=== PATIENT | female | born 1970 | race Hispanic/Latino ===

== ENCOUNTER 2016-05-19 12:59 | Emergency (ER) | payer MEDICARE ==
[2016-05-19 12:59] VITALS: BMI 35.0
[2016-05-19 13:08] VITALS: RESP 18; TEMP 97.9; O2SAT 97
--- NOTE | 2016-05-19 14:30 | C.PDOC ---
History Of Present Illness <Bobby Rodriguez - Last Filed: 05/19/16 14:39> <Yulia Roca - Last Filed: 05/21/16 14:20> 45 year old female presents to the ED with complaints of bilateral knee and shoulder pain. An hour prior to arrival, patient slipped while in the tub falling on bilateral knees, shoulders and chest. Patient denies head injury and any other injuries at this time. (Bobby Rodriguez) 45 year old female presents to the ED with complaints of bilateral knee and shoulder pain. An hour prior to arrival, patient slipped while in the tub falling on bilateral knees, shoulders and chest. Patient denies head injury and any other injuries at this time. (Yulia Roca) History Per: Patient History/Exam Limitations: no limitations Onset/Duration Of Symptoms: Hrs Current Symptoms Are (Timing): Still Present - Knee Description Of Injury: Fell <Bobby Rodriguez - Last Filed: 05/19/16 14:39> History Per: Patient History/Exam Limitations: no limitations Onset/Duration Of Symptoms: Hrs - Knee Description Of Injury: Fell <Yulia Roca - Last Filed: 05/21/16 14:20> Time Seen by Provider: 05/19/16 13:10 Chief Complaint (Nursing): Lower Extremity Problem/Injury Past Medical History - Medical History PMH: Anemia, Anxiety, Arthritis, Asthma, Back Problems, Bipolar Disorder, Depression, Malignancy (Colon) Family History: States: Unknown Family Hx - Social History Hx Tobacco Use: No Hx Alcohol Use: No Hx Substance Use: No - Immunization History Hx Tetanus Toxoid Vaccination: No Hx Influenza Vaccination: No Hx Pneumococcal Vaccination: No <Yulia Roca - Last Filed: 05/21/16 14:20> Vital Signs: Last Vital Signs Temp 97.9 F 05/19/16 13:05 Pulse 85 05/19/16 14:37 Resp 18 05/19/16 14:37 BP 110/70 05/19/16 14:37 Pulse Ox 97 05/21/16 14:18 - [facility] Procedures CLOSED ENDOSCOPIC BIOPSY OF LARGE INTESTINE (05/23/14) COLONOSCOPY (08/12/14) DX ULTRASOUND-ABDOMEN (05/23/14) INSERTION OF TOTALLY IMPLANTABLE VASC ACCESS DEVIC (05/23/14) LAPAROSCOP LYSIS-PERITONEAL ADHES (05/23/14) LAPAROSCOPIC SIGMOIDECTOMY (05/23/14) OTHER ENDOSCOPY OF SM INTEST (05/23/14) PACKED CELL TRANSFUSION (05/23/14) PERCUTAN NEEDLE BX OF LIVER (05/23/14) REMOVAL OF VAD FROM TRUNK SUBCU/FASCIA, PERC APPROACH (03/16/15) Review Of Systems Constitutional: Negative for: Fever, Chills Gastrointestinal: Negative for: Vomiting, Diarrhea Musculoskeletal: Positive for: Shoulder Pain (bilateral), Other (bilateral knee pain) <Yulia Roca - Last Filed: 05/21/16 14:20> Physical Exam - Physical Exam Appears: Non-toxic, No Acute Distress Skin: Warm, Dry Head: Atraumatic, Normacephalic Eye(s): bilateral: Normal Inspection, PERRL, EOMI Oral Mucosa: Moist Neck: Normal ROM, No Midline Cervical Tenderness, No Paracervical Tenderness, Supple Chest: Symmetrical, No Tenderness, No Ecchymosis, No Subcutaneous Emphysema Cardiovascular: Rhythm Regular, No Friction Rub, No Murmur Respiratory: Normal Breath Sounds, No Rales, No Rhonchi, No Wheezing Gastrointestinal/Abdominal: Bowel Sounds (active), Soft, No Tenderness Back: Normal Inspection, No CVA Tenderness, No Vertebral Tenderness, No Paraspinal Tenderness Extremity: Normal ROM (in bilateral knees), No Tenderness (no tenderness or swelling to bilateral knees), Capillary Refill (< 2 sec), No Deformity, Other ( anterior left shoulder tenderness) Extremity: Bilateral: Normal ROM (knees) Neurological/Psych: Oriented x3, Normal Speech, Normal Motor, Normal Sensation Gait: Steady <Yulia Roca - Last Filed: 05/21/16 14:20> ED Course And Treatment O2 Sat by Pulse Oximetry: 97 (on RA) Pulse Ox Interpretation: Normal <Yulia Roca - Last Filed: 05/21/16 14:20> Medical Decision Making <Bobby Rodriguez - Last Filed: 05/19/16 14:39> <Yulia Roca - Last Filed: 05/21/16 14:20> Medical Decision Making: Patient refuses sling. (Yulia Roca Disposition <Bobby Rodriguez - Last Filed: 05/19/16 14:39> - Disposition Disposition Time: : <Yulia Roca - Last Filed: 05/21/16 14:20> - Disposition Referrals: Shaik Saxena MD [Staff Provider] - Disposition: HOME/ ROUTINE Condition: GOOD Additional Instructions: Follow up with the medical doctor within 1-2 days. Return if worsened, Prescriptions: Cyclobenzaprine [Flexeril] 5 mg PO TID #21 tab Naproxen [Naprosyn] 500 mg PO BID #20 tab Instructions: Shoulder Sprain (ED) - Clinical Impression Clinical Impression: Shoulder sprain, Knee sprain, bilateral, Contusion of chest <Bobby Rodriguez - Last Filed: 05/19/16 14:39> - Scribe Statement The provider has reviewed the documentation as recorded by the Scribe <Yulia Roca - Last Filed: 05/21/16 14:20> - Scribe Statement Shira Arthur All medical record entries made by the Scribe were at my direction and personally dictated by me. I have reviewed the chart and agree that the record accurately reflects my personal performance of the history, physical exam, medical decision making, and the department course for this patient. I have also personally directed, reviewed, and agree with the discharge instructions and disposition. (Yulia Roca)
--- NOTE | 2016-05-19 14:32 | C.PDOC ---
History Of Present Illness 45 year old female presents to the ED with complaints of bilateral knee and shoulder pain. An hour prior to arrival, patient slipped while in the tub falling on bilateral knees, shoulders and chest. Patient denies head injury and any other injuries at this time. Time Seen by Provider: 05/19/16 13:10 Chief Complaint (Nursing): Lower Extremity Problem/Injury History Per: Patient History/Exam Limitations: no limitations Onset/Duration Of Symptoms: Hrs Current Symptoms Are (Timing): Still Present - Hip Description Of Injury: Fell - Ankle/Foot Description Of Injury: Fell Past Medical History Reviewed: Historical Data, Nursing Documentation, Vital Signs Vital Signs: Last Vital Signs Temp 97.9 F 05/19/16 13:05 Pulse 91 H 05/19/16 13:05 Resp 18 05/19/16 13:05 BP 120/79 05/19/16 13:05 Pulse Ox 97 05/19/16 13:05 - Medical History PMH: Anemia, Anxiety, Arthritis, Asthma, Back Problems, Bipolar Disorder, Depression, Malignancy (Colon) - [facility] Procedures CLOSED ENDOSCOPIC BIOPSY OF LARGE INTESTINE (05/23/14) COLONOSCOPY (08/12/14) DX ULTRASOUND-ABDOMEN (05/23/14) INSERTION OF TOTALLY IMPLANTABLE VASC ACCESS DEVIC (05/23/14) LAPAROSCOP LYSIS-PERITONEAL ADHES (05/23/14) LAPAROSCOPIC SIGMOIDECTOMY (05/23/14) OTHER ENDOSCOPY OF SM INTEST (05/23/14) PACKED CELL TRANSFUSION (05/23/14) PERCUTAN NEEDLE BX OF LIVER (05/23/14) REMOVAL OF VAD FROM TRUNK SUBCU/FASCIA, PERC APPROACH (03/16/15) Family History: States: Unknown Family Hx - Social History Hx Tobacco Use: No Hx Alcohol Use: No Hx Substance Use: No - Immunization History Hx Tetanus Toxoid Vaccination: No Hx Influenza Vaccination: No Hx Pneumococcal Vaccination: No Review Of Systems Constitutional: Negative for: Fever, Chills Gastrointestinal: Negative for: Nausea, Vomiting, Diarrhea Musculoskeletal: Positive for: Shoulder Pain, Other (bilateral knee pain) Physical Exam - Physical Exam Appears: Non-toxic Skin: Warm, Dry Neck: Normal ROM Extremity: Normal ROM, No Tenderness (no tenderness to bilateral knees), Other ( anterior left shoulder tenderness ) Neurological/Psych: Oriented x3 ED Course And Treatment O2 Sat by Pulse Oximetry: 97
[2016-05-19 14:38] VITALS: BP 110/70; PULSE 85
--- NOTE | 2016-05-19 16:48 | RAD ---
PROCEDURE: Radiographs of the Left Shoulder HISTORY: fall and shoulder pain COMPARISON: No prior. FINDINGS: BONES: No acute fracture. JOINTS: Mild glenohumeral osteoarthritis. Mild acromioclavicular degenerative arthritis. SOFT TISSUES: Calcific tendinitis. OTHER FINDINGS: None. IMPRESSION: No fracture. Glenohumeral osteoarthritis. Acromioclavicular degenerative arthritis. Calcific tendinitis.
--- NOTE | 2016-05-19 16:48 | RAD ---
HISTORY: fall injury to chest, right sided port COMPARISON: 07/31/2015 TECHNIQUE: Chest PA and lateral FINDINGS: LUNGS: No active pulmonary disease. PLEURA: No significant pleural effusion identified. No pneumothorax apparent. CARDIOVASCULAR: Normal heart size. Right subclavian central venous infusion port. OSSEOUS STRUCTURES: No significant abnormalities. VISUALIZED UPPER ABDOMEN: Normal. OTHER FINDINGS: None. IMPRESSION: No active disease.
== END 2016-05-19 14:39 | disposition home or self-care (01) ==
LOC: C.ER 12:59
DX: S83.92XA Sprain of unspecified site of left knee, initial encounter (principal); S83.91XA Sprain of unspecified site of right knee, initial encounter; S43.402A Unspecified sprain of left shoulder joint, initial encounter; S43.401A Unspecified sprain of right shoulder joint, initial encounter; W18.2XXA Fall in (into) shower or empty bathtub, initial encounter; Y93.E1 Activity, personal bathing and showering; Y92.002 Bathroom of unspecified non-institutional (private) residence as the place of occurrence of the external cause

== ENCOUNTER 2016-05-31 17:39 | Inpatient (IN) | payer MEDICARE, OTHER ==
[2016-05-31 18:01] VITALS: BMI 34.4
[2016-05-31 19:46] LABS: BASO % 0.3 % (0.0-2.0); EOS % 0.9 % (0.0-4.0); HEMATOCRIT 31.9 % (34.0-47.0); LYMPH # 0.8 K/uL (1.0-4.3); LYMPH % 28.9 % (20.0-40.0); MEAN CELL VOLUME 77.4 fL (81.0-99.0); MEAN CORPUSCULAR HEMOGLOBIN 25.3 pg (27.0-31.0); MEAN CORPUSCULAR HGB CONC 32.7 g/dL (33.0-37.0); MEAN PLATELET VOLUME 7.2 fL (7.2-11.7); MONO # 0.2 K/uL (0.0-0.8); MONO % 6.9 % (0.0-10.0); RED CELL DISTRIBUTION WIDTH 17.3 % (11.5-14.5); WHITE BLOOD COUNT 2.7 K/uL (4.8-10.8)
[2016-05-31 19:54] LABS: INR 1.1
[2016-05-31 19:57] LABS: RBC URINE 1 /hpf (0-3); URINE BACTERIA RARE (<OCC); URINE BILIRUBIN NEGATIVE (NEGATIVE); URINE BLOOD NEGATIVE (NEGATIVE); URINE COLOR Yellow (YELLOW); URINE GLUCOSE (UA) NORMAL (Normal); URINE KETONE NEGATIVE (NEGATIVE); URINE LEUKOCYTE ESTERASE NEG Leu/uL (Negative); URINE PROTEIN NEGATIVE (NEGATIVE); WBC URINE < 1 /hpf (0-5)
[2016-05-31 20:09] LABS: CHLORIDE 98 mmol/L (98-107); POTASSIUM 4.2 mmol/L (3.6-5.2); SODIUM 138 mmol/L (132-148)
[2016-05-31 20:11] LABS: AST/SGOT 38 U/L (14-36); BILIRUBIN,TOTAL 0.3 mg/dL (0.2-1.3); CARBON DIOXIDE 29 mmol/L (22-30); GFR AFRICAN-AMERICAN > 60
[2016-05-31 20:12] LABS: ALB/GLOB RATIO 1.3 (1.0-2.1); ALKALINE PHOSPHATASE 105 U/L (38-126); ALT/SGPT 31 U/L (9-52); BLOOD UREA NITROGEN 15 mg/dL (7-17); CALCIUM 8.3 mg/dl (8.6-10.4); GLUCOSE,RANDOM 84 mg/dL (65-105); TOTAL PROTEIN 6.6 g/dL (6.3-8.3)
--- NOTE | 2016-05-31 20:30 | C.PDOC ---
History Of Present Illness Patient is a 45 year old female who presents to the ER with a complaint of rectal bleeding since this morning. Patient states the blood is red, without clots. Patient also reports having left lower quadrant pain and constipation. Patient had a similar episode of bleeding last week that resolved in one day. Patient has a past history of colon cancer and is status post cancer resection as of 2015. Patient is currently undergoing chemo radiation, most recent treatment was last month. SUPER[employer] RO[employer] is Dr. Mendez and oncologist is Dr. Heath. Denies any diarrhea, vomiting, or fever. Time Seen by Provider: 05/31/16 19:00 Chief Complaint (Nursing): GI Problem History Per: Patient History/Exam Limitations: no limitations Onset/Duration Of Symptoms: Hrs (Since AM) Current Symptoms Are (Timing): Still Present Location Of Pain/Discomfort: LLQ Associated Symptoms: denies: Fever, Vomiting, Diarrhea Past Medical History Reviewed: Historical Data, Nursing Documentation, Vital Signs Vital Signs: Last Vital Signs Temp 98.3 F 06/02/16 06:00 Pulse 80 06/02/16 00:00 Resp 20 06/02/16 00:00 BP 114/76 06/01/16 22:00 Pulse Ox 96 06/02/16 00:00 - Medical History PMH: Anemia, Anxiety, Arthritis, Asthma, Back Problems, Bipolar Disorder, Depression, Malignancy (Colon) - [facility] Procedures CLOSED ENDOSCOPIC BIOPSY OF LARGE INTESTINE (05/23/14) COLONOSCOPY (08/12/14) DX ULTRASOUND-ABDOMEN (05/23/14) INSERTION OF TOTALLY IMPLANTABLE VASC ACCESS DEVIC (05/23/14) LAPAROSCOP LYSIS-PERITONEAL ADHES (05/23/14) LAPAROSCOPIC SIGMOIDECTOMY (05/23/14) OTHER ENDOSCOPY OF SM INTEST (05/23/14) PACKED CELL TRANSFUSION (05/23/14) PERCUTAN NEEDLE BX OF LIVER (05/23/14) REMOVAL OF VAD FROM TRUNK SUBCU/FASCIA, PERC APPROACH (03/16/15) Family History: States: Unknown Family Hx - Social History Hx Tobacco Use: No Hx Alcohol Use: No Hx Substance Use: No - Immunization History Hx Tetanus Toxoid Vaccination: No Hx Influenza Vaccination: Yes (2015) Hx Pneumococcal Vaccination: No (''Not sure'') Review Of Systems Constitutional: Negative for: Fever Gastrointestinal: Negative for: Vomiting, Diarrhea Physical Exam - Physical Exam Additional Physical Exam Comments: Constitutional: No acute distress. Head: Normocephalic. Atraumatic. Eyes: PERRL. ENT: Moist mucous membranes. Neck: Supple. Cardiovascular: Regular rate. Radial pulses 2+ bilaterally. Chest: No tenderness. Respiratory: Clear to auscultation bilaterally. GI: Epigastric/RUQ and Left lower quadrant tenderness Back: No CVA tenderness. Musculoskeletal: No tenderness or swelling of extremities. Skin: No rash. Neurologic: Alert, no focal deficit. ED Course And Treatment - Laboratory Results Result Diagrams: 05/31/16 19:42 05/31/16 19:42 O2 Sat by Pulse Oximetry: 96 (Room air) Pulse Ox Interpretation: Normal Medical Decision Making Medical Decision Making: Blood type & screen, CT of Abd/pelvis IV contrast only, and urine culture ordered. Morphine administered. CT of Abd/pelvis IV contrast only results: FINDINGS: Lower thorax: Minimal atelectasis or fibrosis in the bases. ABDOMEN: Liver: Fatty liver. Vague density left hepatic lobe image 14 appears to be new. Portions of the mass may represent a dilated duct, with the mass measuring about 1.8 cm. Rule out mass. Gallbladder and bile ducts: Unremarkable. No calcified stones. No ductal dilation. Pancreas: There is stranding identified in the right upper quadrant around the pancreas and duodenum on images 33 through 44. Correlate for pancreatitis or duodenitis although the appearance is nonspecific. Spleen: Persistent splenomegaly. Adrenals: Unremarkable. No mass. Kidneys and ureters: Unremarkable. No solid mass. No hydronephrosis. Stomach and bowel: Previous colon resection. Moderate fecal retention. Appendix: No findings to suggest acute appendicitis. PELVIS: Bladder: Unremarkable. No mass. Reproductive: Unremarkable as visualized. ABDOMEN and PELVIS: Intraperitoneal space: Unremarkable. No free air. No significant fluid collection. Bones/joints: Degenerative changes in the lumbar spine, L5-S1 No acute fracture. No dislocation. Soft tissues: Unremarkable. Vasculature: Unremarkable. No abdominal aortic aneurysm. Lymph nodes: Unremarkable. No enlarged lymph nodes. IMPRESSION: 1. Persistent splenomegaly. 2. Fatty liver. 3. Vague density left hepatic lobe image 14 appears to be new. Portions of the mass may represent a dilated duct, with the mass measuring about 1.8 cm. Rule out mass. 4. Previous colon resection. 5. There is stranding identified in the right upper quadrant around the pancreas and duodenum on images 33 through 44. Correlate for pancreatitis or duodenitis although the appearance is nonspecific. Dr. Tila Harris accepts patient to his service. Disposition - Disposition Disposition: HOSPITALIZED Disposition Time: 22:53 Condition: GUARDED - Clinical Impression Clinical Impression: Duodenitis, Rectal bleeding - Scribe Statement The provider has reviewed the documentation as recorded by the Scribirasema Arita All medical record entries made by the Christopheribirasema were at my direction and personally dictated by me. I have reviewed the chart and agree that the record accurately reflects my personal performance of the history, physical exam, medical decision making, and the department course for this patient. I have also personally directed, reviewed, and agree with the discharge instructions and disposition.
[2016-05-31] MEDS ORDERED: Iohexol 350mg/ml 100 ML ONE (20:42)
[2016-05-31] MEDS ORDERED: OXYCODONE 15 MG PO PRN (23:59)
[2016-06-01] MEDS ORDERED: metroNIDAZOLE IV 500 mg/100 ml 100 ML ONE (00:49)
[2016-06-01] MEDS: metroNIDAZOLE IV 500 mg/100 ml 100 ML IVPB SCH ×3 (01:11→21:25)
[2016-06-01] MEDS: Cefepime IV 1 gm in Dextrose 50 ML IVPB SCH ×2 (01:22→11:27)
[2016-06-01] MEDS ORDERED: oxyCODONE 5 mg Immediate Release Tab ONE (04:46)
--- NOTE | 2016-06-01 08:58 | CT ---
PROCEDURE: CT Abdomen and Pelvis with contrast HISTORY: LLQ pain, rectal bleeding. By history, negative test (concurrent with this examination). Relevant medical history: History of colon cancer/on chemotherapy. Relevant surgical history: Partial colectomy, rectosigmoid anastomosis. COMPARISON: 08/12/2014. CT abdomen and pelvis. 04/13/2016 CT chest abdomen and pelvis. TECHNIQUE: Contrast dose: Radiation dose: Total exam DLP = mGy-cm. This CT exam was performed using one or more of the following dose reduction techniques: Automated exposure control, adjustment of the mA and/or kV according to patient size, and/or use of iterative reconstruction technique. FINDINGS: LOWER THORAX: Unremarkable. LIVER: Unremarkable. No gross lesion or ductal dilatation. GALLBLADDER AND BILE DUCTS: Unremarkable. PANCREAS: Unremarkable. No gross lesion or ductal dilatation. SPLEEN: Splenomegaly. Orthogonal measurements 7.2 x 18.0 x 13.0 Cm ADRENALS: Unremarkable. No mass. KIDNEYS AND URETERS: Unremarkable. No hydronephrosis. No solid mass. VASCULATURE: Unremarkable. No aortic aneurysm. BOWEL: Unremarkable. No obstruction. No gross mural thickening. APPENDIX: Normal appendix. PERITONEUM: Unremarkable. No free fluid. No free air. LYMPH NODES: Unremarkable. No enlarged lymph nodes. BLADDER: Unremarkable. REPRODUCTIVE: Unremarkable. BONES: No acute fracture. OTHER FINDINGS: None. IMPRESSION: No acute findings related to/accounting for the clinical presentation. No significant interval change compared to the prior examination(s). Concordant results (preliminary interpretation) provided by [employer] Procedure Completed: 21:31. Preliminary ([facility]) Report: Dictated and Authenticated: 21:52. Final Interpretation: 08:57.
--- NOTE | 2016-06-01 09:10 | CP.PCM.CON ---
<Chuck Zaragoza - Last Filed: 06/01/16 09:03> History of Present Illness - History of Present Illness History of Present Illness: PGY4 GI Fellow Consult Note Patient is a 45yo female with PMHx significant for colon cancer with metastatic disease to liver (T3N1M1) currently on chemotherapy, chronic constipation, bipolar disorder, obesity who presents with one week of rectal bleeding. The patient is a very poor historian, contradicting her own history during conversation. She states that last week she got her period for the first time in 3 years and it lasted two days. Following this, she passed a hard BM and noticed bright red blood mixed in with stool. Since this time she has had upwards of 10 episodes of rectal bleeding with and without stooling. She initially had admitted to some dizziness and stated this was why she presented to the ED last night but now denies this having happened. Pt also admits to diffuse, cramping abdominal pain but cannot localize pain to one area or clearly state when it began and what exacerbating factors exist. Ultimately, it seems she came to the ED given persistence of rectal bleeding. Admits that this had occurred several weeks ago and resolved spontaneously. When she discussed this with her oncologist, Dr Heath, he suggested she come to the hospital should it recur. She had chemotherapy on saturday (05/28/16) but did not mention this bleeding to her oncologist at that time. Currently, denies any SOB, nausea , vomiting, weight loss, diarrhea, constipation, melena. PMHx: See HPI PSHx: Sigmoid resection FHx: Father - unknown malignancy; Mother - RA Social: Former EtOH use, now denies EtOH/tobacco/illicit drug use Endo: Most recent colonoscopy was 07/2014 after her surgical resection - suboptimal prep and requested repeat in 6mo but patient lost to F/U Review of Systems - Constitutional Constitutional: absent: Anorexia, Chills, Fatigue, Fever - EENT Eyes: absent: Change in Vision Nose/Mouth/Throat: absent: Sore Throat - Cardiovascular Cardiovascular: absent: Chest Pain, Dyspnea, Palpitations - Respiratory Respiratory: absent: Cough, Dyspnea, Change in Mucous Color - Gastrointestinal Gastrointestinal: Abdominal Pain, Cramping, Hematochezia. absent: Belching, Bloating, Constipation, Diarrhea, Dyspepsia, Heartburn, Hematemesis, Loose Stools, Melena, Nausea, Vomiting - Genitourinary Genitourinary: absent: Dysuria, Urinary Frequency, Urinary Urgency - Musculoskeletal Musculoskeletal: absent: Back Pain, Neck Pain - Integumentary Integumentary: absent: New Lesions, Rash - Neurological Neurological: absent: Dizziness, Numbness, Focal Weakness - Psychiatric Psychiatric: absent: Anxiety, Depression - Endocrine Endocrine: absent: Polydipsia, Polyphagia, Polyuria - Hematologic/Lymphatic Hematologic: absent: Easy Bleeding, Easy Bruising, Lymphadenopathy Past Patient History - Infectious Disease Hx of Infectious Diseases: None - Past Medical History & Family History Past Medical History?: Yes - Past Social History Smoking Status: Never Smoked - CARDIAC Hx Cardiac Disorders: No - PULMONARY Hx Asthma: Yes - NEUROLOGICAL Hx Neurological Disorder: No - HEENT Hx HEENT Problems: No - RENAL Hx Chronic Kidney Disease: No - ENDOCRINE/METABOLIC Hx Endocrine Disorders: No - HEMATOLOGICAL/ONCOLOGICAL Hx Anemia: Yes - INTEGUMENTARY Hx Dermatological Problems: No - MUSCULOSKELETAL/RHEUMATOLOGICAL Hx Falls: No - GASTROINTESTINAL Hx Gastrointestinal Disorders: Yes (SEE COMMENT) Other/Comment: COLON CANCER STAGE 4 WITH CHEMOTHERAPY; PORTACATH TO RIGHT SUBCLAVIAN - GENITOURINARY/GYNECOLOGICAL Hx Genitourinary Disorders: No - PSYCHIATRIC Hx Anxiety: Yes Hx Bipolar Disorder: Yes Hx Depression: Yes Hx Substance Use: No - SURGICAL HISTORY Hx Surgeries: Yes (SEE COMMENT) Hx Vascular Access Device: Yes (RIGHT SUBCLAVIAN) Other/Comment: colon cancer surgery april 2014 to remove tumor, rt side subclavian PC - ANESTHESIA Hx Anesthesia: Yes Hx Anesthesia Reactions: No Meds Allergies/Adverse Reactions: Allergies Allergy/AdvReac Type Severity Reaction Status Date / Time No Known Allergies Allergy Verified 05/31/16 17:46 - Medications Medications: Current Medications Escitalopram Oxalate (Lexapro) 20 mg PO DAILY [facility] Home Med (Clonazepam [Klonopin]) 2 mg PO TID [facility] (Duloxetine [Cymbalta]) 60 mg PO DAILY [facility] (Naproxen [Naprosyn]) 500 mg PO BID [facility] (Oxycodone [Oxycodone Immediate Release Tab]) 15 mg PO Q3H PRN PRN Reason: Pain, moderate (4-7) Last Admin: 06/01/16 04:47 Dose: 15 mg Home Med (Solifenacin Succinate [Vesicare]) 5 mg PO HS [facility] (Zolpidem Tartrate [Ambien]) 10 mg PO [facility] Last Admin: 06/01/16 00:45 Dose: 10 mg Cefepime HCl (Maxipime Iv 1 Gm Premix) 50 mls @ 100 mls/hr IVPB Q12H [facility] Last Admin: 06/01/16 01:22 Dose: 100 mls/hr Metronidazole (Flagyl) 100 mls @ 100 mls/hr IVPB BID [facility] Last Admin: 06/01/16 01:11 Dose: 100 mls/hr Meclizine HCl (Antivert) 75 mg PO BID [facility] Pantoprazole Sodium (Protonix Inj) 40 mg IVP DAILY [facility] Risperidone (Risperdal Tab) 2 mg PO BID [facility] Last Admin: 06/01/16 00:45 Dose: 2 mg Physical Exam - Constitutional Appears: Non-toxic, No Acute Distress - Eye Exam Eye Exam: EOMI, PERRL - ENT Exam ENT Exam: Mucous Membranes Moist - Respiratory Exam Respiratory Exam: Clear to Auscultation Bilateral. absent: Rales, Rhonchi, Wheezes - Cardiovascular Exam Cardiovascular Exam: RRR, +S1, +S2 - GI/Abdominal Exam GI & Abdominal Exam: Normal Bowel Sounds, Soft, Tenderness (LLQ, RLQ). absent: Distended, Firm, Guarding, Organomegaly, Rigid - Rectal Exam Rectal Exam: NORMAL INSPECTION. absent: Black Stool, Bloody Stool, Hemorrhoids - Extremities Exam Extremities exam: Positive for: normal inspection. Negative for: pedal edema - Neurological Exam Neurological exam: Alert, Oriented x3 - Psychiatric Exam Psychiatric exam: Normal Affect, Normal Mood - Skin Skin Exam: Dry, Warm Results - Vital Signs Recent Vital Signs: Last Vital Signs Temp 96 F L 06/01/16 08:22 Pulse 88 06/01/16 08:22 Resp 16 06/01/16 08:22 BP 151/104 H 06/01/16 08:22 Pulse Ox 95 06/01/16 06:53 - Labs Result Diagrams: 05/31/16 19:42 05/31/16 19:42 Assessment & Plan - Assessment and Plan (Free Text) Assessment: Patient is a 45yo female with PMHx significant for colon cancer with metastatic disease to liver (T3N1M1) currently on chemotherapy, chronic constipation, bipolar disorder, obesity who presents with one week of rectal bleeding. -Hematochezia -Colon cancer with metastasis to liver s/p sigmoid resection, on chemotherapy with last dose 05/28/16 -Pancytopenia 2/2 chemotherapy -Bipolar disorder Plan: -Unremarkable rectal examination and no evidence of acute hematochezia since admission -CT A/P with IV contrast reviewed - grossly unremarkable; no evidence of liver lesions c/w history of metastatic disease -Pancytopenia attributed to chemotherapy - HGB unchanged from prior -Monitor for any further episodes of bleeding -Patient would benefit from surveillance colonoscopy as she has never had a complete exam post-operatively - if no active bleeding noted, can likely be performed in outpatient setting -Clear liquid diet, advance as tolerated -Consider discontinuation of antibiotics in absence of clear infectious process - Date & Time Date: 06/01/16 Time: 05:55 <Baldo Albarran - Last Filed: 06/01/16 17:22> Meds - Medications Medications: Current Medications Clonazepam (Klonopin) 2 mg PO TID PRN PRN Reason: Anxiety Last Admin: 06/01/16 14:07 Dose: 2 mg Duloxetine HCl (Cymbalta) 60 mg PO DAILY [facility] Escitalopram Oxalate (Lexapro) 20 mg PO DAILY [facility] Last Admin: 06/01/16 11:25 Dose: 20 mg Cefepime HCl (Maxipime Iv 1 Gm Premix) 50 mls @ 100 mls/hr IVPB Q12H [facility] Last Admin: 06/01/16 11:27 Dose: 100 mls/hr Metronidazole (Flagyl) 100 mls @ 100 mls/hr IVPB Q12H [facility] Meclizine HCl (Antivert) 75 mg PO BID [facility] Last Admin: 06/01/16 11:26 Dose: 75 mg Naproxen (Anaprox Ds) 550 mg PO BID [facility] Oxycodone HCl (Oxycodone Immediate Release Tab) 15 mg PO Q3H PRN PRN Reason: Pain, moderate (4-7) Last Admin: 06/01/16 11:34 Dose: 15 mg Pantoprazole Sodium (Protonix Inj) 40 mg IVP DAILY [facility] Last Admin: 06/01/16 11:04 Dose: 40 mg Risperidone (Risperdal Tab) 2 mg PO BID [facility] Tolterodine Tartrate (Detrol La) 4 mg PO HS [facility] Zolpidem Tartrate (Ambien) 5 mg PO HS PRN PRN Reason: Insomnia Results - Vital Signs Recent Vital Signs: Last Vital Signs Temp 97.6 F 06/01/16 16:00 Pulse 76 06/01/16 14:00 Resp 20 06/01/16 16:00 BP 112/77 06/01/16 16:00 Pulse Ox 95 06/01/16 16:00 - Labs Result Diagrams: 05/31/16 19:42 05/31/16 19:42 Attending/Attestation - Attestation I have personally seen and examined this patient.: Yes I have fully participated in the care of the patient.: Yes I have reviewed all pertinent clinical information: Yes Notes (Text): Patient seen and examined with GI fellow. Agree with his note as documented above with the following additions/exceptions. This is a 45 year old female with PMHx significant for colon cancer (T3N1M1) s/p surgical resection currently on adjuvant chemotherapy (follows with Dr. Heath) chronic constipation , bipolar disorder, obesity who presents with one week of rectal bleeding. She is pancytopenic, likely from chemotherapy and her Hb is near baseline. She has not had any further bleeding episodes while in hospital and there is no stool in vault/fresh bleeding on examination. Follow up official CT read, although no gross findings on my review. Monitor for recurrent bleeding/monitor H/H, transfuse as needed. She had attempted colonoscopy in 2014 which was incomplete due to poor prep quality. She would certainly benefit from colonoscopy, which can potentially be pursued as outpatient depending on patient 's clinical course. 06/01/16 12:18
[2016-06-01] MEDS ORDERED: CLONAZEPAM 2 MG PO SCH (10:00)
[2016-06-01] MEDS ORDERED: Home Med 1 UNIT (Naproxen [Naprosyn] 500 MG) PO SCH (10:00)
[2016-06-01] MEDS ORDERED: DULOXETINE 60 MG PO SCH (10:00)
--- NOTE | 2016-06-01 10:44 | CP.PCM.HP ---
History of Present Illness - History of Present Illness History of Present Illness: 45 years old female patient with past medical history of asthma, anxiety depression, colon cancer, status post laparoscopic sigmoidectomy on presented to ER with complaint of bleeding per rectum., Also complained of constipation, left lower quadrant pain similar episode of bleeding about a week ago. Patient is currently on chemotherapy and regular oncology follow-up. Emergency department of the abdomen and pelvis done blood work done and urine cultures sent. Present on Admission - Present on Admission Any Indicators Present on Admission: No Past Patient History - Infectious Disease Hx of Infectious Diseases: None - Past Medical History & Family History Past Medical History?: Yes - Past Social History Smoking Status: Never Smoked - CARDIAC Hx Cardiac Disorders: No - PULMONARY Hx Asthma: Yes - NEUROLOGICAL Hx Neurological Disorder: No - HEENT Hx HEENT Problems: No - RENAL Hx Chronic Kidney Disease: No - ENDOCRINE/METABOLIC Hx Endocrine Disorders: No - HEMATOLOGICAL/ONCOLOGICAL Hx Anemia: Yes - INTEGUMENTARY Hx Dermatological Problems: No - MUSCULOSKELETAL/RHEUMATOLOGICAL Hx Falls: No - GASTROINTESTINAL Hx Gastrointestinal Disorders: Yes (SEE COMMENT) Other/Comment: COLON CANCER STAGE 4 WITH CHEMOTHERAPY; PORTACATH TO RIGHT SUBCLAVIAN - GENITOURINARY/GYNECOLOGICAL Hx Genitourinary Disorders: No - PSYCHIATRIC Hx Anxiety: Yes Hx Bipolar Disorder: Yes Hx Depression: Yes Hx Substance Use: No - SURGICAL HISTORY Hx Surgeries: Yes (SEE COMMENT) Hx Vascular Access Device: Yes (RIGHT SUBCLAVIAN) Other/Comment: colon cancer surgery april 2014 to remove tumor, rt side subclavian PC - ANESTHESIA Hx Anesthesia: Yes Hx Anesthesia Reactions: No Meds Allergies/Adverse Reactions: Allergies Allergy/AdvReac Type Severity Reaction Status Date / Time No Known Allergies Allergy Verified 08/12/16 20:01 Physical Exam - Constitutional Appears: Well - Head Exam Head Exam: ATRAUMATIC, NORMAL INSPECTION, NORMOCEPHALIC - Eye Exam Eye Exam: EOMI, Normal appearance, PERRL Pupil Exam: NORMAL ACCOMODATION, PERRL - ENT Exam ENT Exam: Mucous Membranes Moist, Normal Exam - Neck Exam Neck exam: Positive for: Normal Inspection - Respiratory Exam Respiratory Exam: Decreased Breath Sounds - Cardiovascular Exam Cardiovascular Exam: REGULAR RHYTHM, +S1, +S2 - GI/Abdominal Exam GI & Abdominal Exam: Diminished Bowel Sounds, Soft - Rectal Exam Rectal Exam: Deferred Results - Vital Signs Recent Vital Signs: Last Vital Signs Temp 96 F L 06/01/16 08:22 Pulse 88 06/01/16 08:22 Resp 16 06/01/16 08:22 BP 151/104 H 06/01/16 08:22 Pulse Ox 95 06/01/16 06:53 - Labs Result Diagrams: 05/31/16 19:42 05/31/16 19:42 Assessment & Plan (1) Abdominal pain Status: Acute (2) Acute renal insufficiency Status: Acute (3) Anemia Status: Acute (4) Anxiety Status: Acute (5) Arm sprain Status: Acute (6) Cellulitis Status: Acute (7) Cellulitis and abscess Status: Acute (8) Chemotherapy adverse reaction Status: Acute (9) Closed head injury Status: Acute (10) Cocaine abuse Status: Acute (11) Colon cancer Status: Acute (12) Colon cancer metastasized to liver Status: Acute (13) Colonic mass Status: Acute (14) Constipation Status: Acute (15) Constipation Status: Acute (16) Contusion of chest Status: Acute (17) Contusion of knee, left Status: Acute (18) Contusion of knee, right Status: Acute (19) Contusion of lower back Status: Acute (20) Dizziness Status: Acute (21) Duodenitis Status: Acute (22) External hemorrhoid, bleeding Status: Acute (23) Fall in bathtub Status: Acute (24) Fever Status: Acute (25) Head injury Status: Acute (26) Head trauma Status: Acute (27) History of rectal bleeding Status: Acute (28) Infection due to portacath Status: Acute (29) Knee contusion Status: Acute (30) Knee injury Status: Acute (31) Knee pain Status: Acute (32) Knee pain, bilateral Status: Acute (33) Knee sprain, bilateral Status: Acute (34) Leukocytosis Status: Acute (35) Liver lesion Status: Acute (36) Muscle pain Status: Acute (37) Nausea Status: Acute (38) Osteoarthritis Status: Acute (39) Pancytopenia Status: Acute (40) Pancytopenia due to antineoplastic chemotherapy Status: Acute (41) Rectal bleeding Status: Acute (42) Shoulder contusion Status: Acute (43) Shoulder sprain Status: Acute (44) Status post chemotherapy Status: Acute (45) Vertigo Status: Acute (46) Anxiety Status: Chronic (47) Iron deficiency anemia Status: Chronic - Assessment and Plan (Free Text) Plan: CT scan report noted Meds reviewed Continue same Gastroenterology consult Consult Pain meds Labs next a.m.
[2016-06-01] MEDS ORDERED: oxyCODONE 5 mg Immediate Release Tab PO PRN (11:26)
[2016-06-01 16:08] VITALS: RESP 20
[2016-06-01] MEDS: Naproxen 550 mg Tab PO SCH (17:58)
[2016-06-01] MEDS ORDERED: Tolterodine 4 mg ER Cap PO SCH (22:00)
[2016-06-01] MEDS ORDERED: Home Med 1 UNIT (Solifenacin Succinate [Vesicare] 5 MG) PO SCH (22:00)
[2016-06-01 22:13] VITALS: O2SAT 96
[2016-06-02] MEDS: Cefepime IV 1 gm in Dextrose 50 ML IVPB SCH ×2 (00:15→11:56)
[2016-06-02] MEDS: metroNIDAZOLE IV 500 mg/100 ml 100 ML IVPB SCH (09:47)
[2016-06-02] MEDS: Naproxen 550 mg Tab PO SCH (09:48)
--- NOTE | 2016-06-02 12:49 | CP.PCM.PN ---
<Giannajose raulleticiaChuck - Last Filed: 06/02/16 12:45> Subjective - Date & Time of Evaluation Date of Evaluation: 06/02/16 Time of Evaluation: 11:20 - Subjective Subjective: PGY4 GI Fellow Progress Note Patient seen and examined bedside this afternoon. The patient has no evidence of repeat rectal bleeding and has had no issues other than cutting her finger with a razor blade while shaving. She denies any issues overnight. 12 system ROS performed and negative except where stated. Objective - Vital Signs/Intake and Output Vital Signs (last 24 hours): Temp Pulse Resp BP Pulse Ox 98.3 F 80 20 114/76 96 06/02/16 06:00 06/02/16 00:00 06/02/16 00:00 06/01/16 22:00 06/02/16 10:21 - Medications Medications: Current Medications Clonazepam (Klonopin) 2 mg PO TID PRN PRN Reason: Anxiety Last Admin: 06/01/16 21:24 Dose: 2 mg Duloxetine HCl (Cymbalta) 60 mg PO DAILY [facility] Last Admin: 06/02/16 09:48 Dose: 60 mg Escitalopram Oxalate (Lexapro) 20 mg PO DAILY [facility] Last Admin: 06/01/16 11:25 Dose: 20 mg Cefepime HCl (Maxipime Iv 1 Gm Premix) 50 mls @ 100 mls/hr IVPB Q12H [facility] Last Admin: 06/02/16 11:56 Dose: 100 mls/hr Metronidazole (Flagyl) 100 mls @ 100 mls/hr IVPB Q12H [facility] Last Admin: 06/02/16 09:47 Dose: 100 mls/hr Meclizine HCl (Antivert) 75 mg PO BID [facility] Last Admin: 06/02/16 09:48 Dose: 75 mg Naproxen (Anaprox Ds) 550 mg PO BID [facility] Last Admin: 06/02/16 09:48 Dose: 550 mg Oxycodone HCl (Oxycodone Immediate Release Tab) 15 mg PO Q3H PRN PRN Reason: Pain, moderate (4-7) Last Admin: 06/01/16 11:34 Dose: 15 mg Pantoprazole Sodium (Protonix Inj) 40 mg IVP DAILY [facility] Last Admin: 06/02/16 09:47 Dose: 40 mg Risperidone (Risperdal Tab) 2 mg PO BID [facility] Last Admin: 06/02/16 09:48 Dose: 2 mg Tolterodine Tartrate (Detrol La) 4 mg PO HS [facility] Last Admin: 06/01/16 21:24 Dose: 4 mg Zolpidem Tartrate (Ambien) 5 mg PO HS PRN PRN Reason: Insomnia Last Admin: 06/01/16 21:24 Dose: 5 mg - Labs Labs: PT 12.3 SECONDS (9.7-12.2) H 05/31/16 19:42 INR 1.1 05/31/16 19:42 APTT 36 SECONDS (21-34) H 05/31/16 19:42 - Constitutional Appears: Non-toxic, No Acute Distress - Eye Exam Eye Exam: EOMI, PERRL - ENT Exam ENT Exam: Mucous Membranes Moist - Respiratory Exam Respiratory Exam: Clear to Ausculation Bilateral. absent: Rales, Rhonchi, Wheezes - Cardiovascular Exam Cardiovascular Exam: RRR, +S1, +S2 - GI/Abdominal Exam GI & Abdominal Exam: Soft, Normal Bowel Sounds. absent: Distended, Firm, Guarding, Rigid, Tenderness, Organomegaly - Extremities Exam Extremities Exam: Normal Inspection. absent: Pedal Edema - Neurological Exam Neurological Exam: Alert, Awake, Oriented x3 - Psychiatric Exam Psychiatric exam: Normal Affect, Normal Mood - Skin Skin Exam: Dry, Warm Assessment and Plan - Assessment and Plan (Free Text) Assessment: Patient is a 45yo female with PMHx significant for colon cancer with metastatic disease to liver (T3N1M1) currently on chemotherapy, chronic constipation, bipolar disorder, obesity who presents with one week of rectal bleeding. -Hematochezia, unwitnessed and no episodes noted since admission -Colon cancer with metastasis to liver s/p sigmoid resection, on chemotherapy with last dose 05/28/16 -Pancytopenia 2/2 chemotherapy -Bipolar disorder Plan: -No lab work has been ordered on this patient today -No further episodes of bleeding noted -Suspect pancytopenia is a result of recent chemotherapy -Recommend outpatient follow up as patient requires a colonoscopy - she has not had a full colonoscopy since her surgical resection -Will sign off. Thank you for allowing us to participate in the care of your patient. <Opal Dudley MD - Last Filed: 06/02/16 20:24> Objective - Vital Signs/Intake and Output Vital Signs (last 24 hours): Temp Pulse Resp BP Pulse Ox 97.3 F L 76 20 156/88 H 96 06/02/16 12:00 06/02/16 12:00 06/02/16 12:00 06/02/16 12:00 06/02/16 10:21 Intake and Output: 06/02/16 06/03/16 18:59 06:59 Intake Total 460 Balance 460 - Labs Labs: PT 12.3 SECONDS (9.7-12.2) H 05/31/16 19:42 INR 1.1 05/31/16 19:42 APTT 36 SECONDS (21-34) H 05/31/16 19:42 Attending/Attestation - Attestation I have personally seen and examined this patient.: Yes I have fully participated in the care of the patient.: Yes I have reviewed all pertinent clinical information, including history, physical exam and plan: Yes Notes (Text): 06/02/16 20:21 Patient seen and examined with GI fellow on rounds. This is a 45 yr old female with PMHx significant for colon cancer with metastatic disease to liver (T3N1M1 ) currently on chemotherapy, chronic constipation, bipolar disorder, obesity who presents with one week of rectal bleeding. No episodes since admission. Suspect pancytopenia is a result of recent chemotherapy -Recommend outpatient follow up as patient requires a colonoscopy - she has not had a full colonoscopy since her surgical resection -Will sign off. Thank you for allowing us to participate in the care of your patient.
[2016-06-02 13:15] VITALS: BP 156/88; PULSE 76; TEMP 97.3
--- NOTE | 2016-06-04 21:50 | CP.PCM.CON ---
History of Present Illness - History of Present Illness History of Present Illness: Ms. Hsieh is a 44 year old female with history of depression, and stage IV colon cancer with liver metastasis dx in 05/2014, admitted with hematochezia. She had been on systemic chemotherapy with FOLFOX + Avastin, but this has been on hold for persistant pancytopenia. She has been on single agent Avastin for her cancer treatment. Her pancytopenia was felt to be possibly related to alcohol and possible liver disease. She note sto straining with bowel movement and saw blood in the toilet bowl. Past medical history: depression, anemia. Past surgical history: Knee surgery, portacatheter placement and removal Family history: Denies hematologic and oncologic problems Social history: Denies tobacco, alcohol, and illicit drug use. Allergies: NKA Review of systems: All remaining review of systems including HEENT, cardiovascular, respiratory, gastrointestinal, genitourinary, musculoskeletal, dermatologic, psychiatric, neurologic are negative unless mentioned in the history of present illness. Past Patient History - Infectious Disease Hx of Infectious Diseases: None - Past Medical History & Family History Past Medical History?: Yes - Past Social History Smoking Status: Never Smoked - CARDIAC Hx Cardiac Disorders: No - PULMONARY Hx Asthma: Yes - NEUROLOGICAL Hx Neurological Disorder: No - HEENT Hx HEENT Problems: No - RENAL Hx Chronic Kidney Disease: No - ENDOCRINE/METABOLIC Hx Endocrine Disorders: No - HEMATOLOGICAL/ONCOLOGICAL Hx Anemia: Yes - INTEGUMENTARY Hx Dermatological Problems: No - MUSCULOSKELETAL/RHEUMATOLOGICAL Hx Arthritis: Yes - GASTROINTESTINAL Hx Gastrointestinal Disorders: Yes (SEE COMMENT) Other/Comment: COLON CANCER STAGE 4 WITH CHEMOTHERAPY; PORTACATH TO RIGHT SUBCLAVIAN - GENITOURINARY/GYNECOLOGICAL Hx Genitourinary Disorders: No - PSYCHIATRIC Hx Anxiety: Yes Hx Bipolar Disorder: Yes Hx Depression: Yes Hx Substance Use: No - SURGICAL HISTORY Hx Surgeries: Yes (SEE COMMENT) Hx Vascular Access Device: Yes (RIGHT SUBCLAVIAN) Other/Comment: colon cancer surgery april 2014 to remove tumor, rt side subclavian PC - ANESTHESIA Hx Anesthesia: Yes Hx Anesthesia Reactions: No Meds Allergies/Adverse Reactions: Allergies Allergy/AdvReac Type Severity Reaction Status Date / Time No Known Allergies Allergy Verified 05/31/16 17:46 Physical Exam - Head Exam Head Exam: ATRAUMATIC - Eye Exam Eye Exam: Normal appearance - ENT Exam ENT Exam: Mucous Membranes Dry - Respiratory Exam Respiratory Exam: NORMAL BREATHING PATTERN - Cardiovascular Exam Cardiovascular Exam: +S1, +S2 - GI/Abdominal Exam GI & Abdominal Exam: Normal Bowel Sounds - Extremities Exam Extremities exam: Positive for: normal inspection - Neurological Exam Neurological exam: Oriented x3 - Psychiatric Exam Psychiatric exam: Normal Mood - Skin Skin Exam: Warm Results - Vital Signs Recent Vital Signs: Last Vital Signs Temp 97.3 F L 06/02/16 12:00 Pulse 76 06/02/16 12:00 Resp 20 06/02/16 12:00 BP 156/88 H 06/02/16 12:00 Pulse Ox 96 06/02/16 10:21 - Labs Result Diagrams: 05/31/16 19:42 05/31/16 19:42 Assessment & Plan (1) Anemia Assessment and Plan: hematochezia likely related to straining pt also on Avastin which may predispose to bleeding stable H/H Status: Acute (2) Pancytopenia Assessment and Plan: suspect liver disease from alcohol splenomegaly noted on CT scan likely sequestration Status: Acute (3) Colon cancer metastasized to liver Assessment and Plan: outpatient Avastin chemotherapy on hold cor pancytopenia Thank you for this interesting consult. Status: Acute
== END 2016-06-02 14:20 | disposition home or self-care (01) | DRG 377 ==
LOC: C.ER 17:39 → C.9E 22:53 → C.9I 06-01 05:20
PROVIDERS: ADMIT Internal Medicine Nephrology; ATTEND Internal Medicine Nephrology
DX: K62.5 Hemorrhage of anus and rectum (principal); D61.810 Antineoplastic chemotherapy induced pancytopenia; C78.7 Secondary malignant neoplasm of liver and intrahepatic bile duct; C18.7 Malignant neoplasm of sigmoid colon; K29.80 Duodenitis without bleeding; K59.09 Other constipation; E66.9 Obesity, unspecified; F31.9 Bipolar disorder, unspecified; J45.909 Unspecified asthma, uncomplicated; M19.90 Unspecified osteoarthritis, unspecified site; F41.8 Other specified anxiety disorders; Z90.49 Acquired absence of other specified parts of digestive tract

== ENCOUNTER 2016-06-14 11:38 | Emergency (ER) | payer MEDICARE, OTHER ==
[2016-06-14 11:39] VITALS: BMI 34.4
[2016-06-14 11:44] VITALS: RESP 18
[2016-06-14] MEDS ORDERED: Sodium Chloride 0.9% 1,000 ML IV ONE (12:17)
[2016-06-14] MEDS ORDERED: Belladonna-Phenobarbital PO STA (12:17)
[2016-06-14] MEDS ORDERED: Sodium Chloride 0.9% 1,000 ML ONE (12:37)
[2016-06-14] MEDS ORDERED: Belladonna-Phenobarbital ONE (12:37)
--- NOTE | 2016-06-14 12:48 | C.PDOC ---
History Of Present Illness 45 year old female with a history of colon cancer and resection in 2015, presents to the ED with complaints of sharp burning bilateral lower abdominal pain radiating back for the past 2 days. Denies urinary symptoms, change in bowel movements, fever, or any other complaints at this time. Time Seen by Provider: 06/14/16 12:04 Chief Complaint (Nursing): Lower Extremity Problem/Injury Past Medical History Vital Signs: Last Vital Signs Temp 97.9 F 06/14/16 11:40 Pulse 90 06/14/16 11:40 Resp 18 06/14/16 11:40 BP 158/92 H 06/14/16 11:40 Pulse Ox 99 06/14/16 11:40 - Medical History PMH: Anemia, Anxiety, Arthritis, Asthma, Back Problems, Bipolar Disorder, Depression, Malignancy (Colon), Rheumatoid Arthritis Denies: Chronic Kidney Disease - [facility] Procedures CLOSED ENDOSCOPIC BIOPSY OF LARGE INTESTINE (05/23/14) COLONOSCOPY (08/12/14) DX ULTRASOUND-ABDOMEN (05/23/14) INSERTION OF TOTALLY IMPLANTABLE VASC ACCESS DEVIC (05/23/14) LAPAROSCOP LYSIS-PERITONEAL ADHES (05/23/14) LAPAROSCOPIC SIGMOIDECTOMY (05/23/14) OTHER ENDOSCOPY OF SM INTEST (05/23/14) PACKED CELL TRANSFUSION (05/23/14) PERCUTAN NEEDLE BX OF LIVER (05/23/14) REMOVAL OF VAD FROM TRUNK SUBCU/FASCIA, PERC APPROACH (03/16/15) Family History: States: Unknown Family Hx - Social History Hx Tobacco Use: No Hx Alcohol Use: Yes Hx Substance Use: No - Immunization History Hx Tetanus Toxoid Vaccination: No Hx Influenza Vaccination: Yes (2016) Hx Pneumococcal Vaccination: No (''Not sure'') ED Course And Treatment O2 Sat by Pulse Oximetry: 99
--- NOTE | 2016-06-14 12:54 | C.PDOC ---
History Of Present Illness 45 year old female with a history of colon cancer and resection in 2015, presents to the ED with complaints of dull burning bilateral lower abdominal pain radiating back for the past 2 days. Denies urinary symptoms, change in bowel movements, fever, or any other complaints at this time. Time Seen by Provider: 06/14/16 12:04 Chief Complaint (Nursing): Lower Extremity Problem/Injury History Per: Patient History/Exam Limitations: no limitations Onset/Duration Of Symptoms: Days Current Symptoms Are (Timing): Still Present Severity: Mild Location Of Pain/Discomfort: RLQ, LLQ Radiation Of Pain To:: Back Quality Of Discomfort: Sharp, Burning Associated Symptoms: denies: Fever, Nausea, Diarrhea, Urinary Symptoms Abnormal Vaginal Bleeding: No Past Medical History Reviewed: Historical Data, Nursing Documentation, Vital Signs Vital Signs: Last Vital Signs Temp 97.8 F 06/14/16 14:52 Pulse 82 06/14/16 14:52 Resp 18 06/14/16 14:52 BP 162/96 H 06/14/16 14:52 Pulse Ox 100 06/14/16 14:52 - Medical History PMH: Anemia, Anxiety, Arthritis, Asthma, Back Problems, Bipolar Disorder, Depression, Malignancy (Colon), Rheumatoid Arthritis - [facility] Procedures CLOSED ENDOSCOPIC BIOPSY OF LARGE INTESTINE (05/23/14) COLONOSCOPY (08/12/14) DX ULTRASOUND-ABDOMEN (05/23/14) INSERTION OF TOTALLY IMPLANTABLE VASC ACCESS DEVIC (05/23/14) LAPAROSCOP LYSIS-PERITONEAL ADHES (05/23/14) LAPAROSCOPIC SIGMOIDECTOMY (05/23/14) OTHER ENDOSCOPY OF SM INTEST (05/23/14) PACKED CELL TRANSFUSION (05/23/14) PERCUTAN NEEDLE BX OF LIVER (05/23/14) REMOVAL OF VAD FROM TRUNK SUBCU/FASCIA, PERC APPROACH (03/16/15) Family History: States: Unknown Family Hx - Social History Hx Tobacco Use: No Hx Alcohol Use: Yes Hx Substance Use: No - Immunization History Hx Tetanus Toxoid Vaccination: No Hx Influenza Vaccination: Yes (2015) Hx Pneumococcal Vaccination: No (''Not sure'') Review Of Systems Except As Marked, All Systems Reviewed And Found Negative. Constitutional: Negative for: Fever, Chills Gastrointestinal: Positive for: Abdominal Pain. Negative for: Nausea, Vomiting , Diarrhea, Constipation Genitourinary: Negative for: Dysuria, Frequency, Pelvic Pain Neurological: Negative for: Weakness, Numbness Physical Exam - Physical Exam Appears: Non-toxic, No Acute Distress, Other (+Obese) Skin: Normal Color, Warm, Dry Head: Atraumatic, Normacephalic Eye(s): bilateral: Normal Inspection Oral Mucosa: Moist Neck: Normal ROM Chest: Symmetrical, No Deformity Cardiovascular: Rhythm Regular, No Murmur Respiratory: Normal Breath Sounds, No Accessory Muscle Use, No Rales, No Rhonchi , No Wheezing Gastrointestinal/Abdominal: Bowel Sounds (+Normal bowel sounds), Soft, Tenderness (+Mild bilateral lower quadrant tenderness), No Distention, No Guarding, No Rebound Back: Normal Inspection, No CVA Tenderness, No Vertebral Tenderness, No Paraspinal Tenderness Extremity: Normal ROM, No Pedal Edema, No Deformity Neurological/Psych: Oriented x3, Normal Speech Gait: Steady ED Course And Treatment - Laboratory Results Result Diagrams: 06/14/16 12:56 06/14/16 12:56 Lab Interpretation: No Acute Changes O2 Sat by Pulse Oximetry: 99 (Room air) Pulse Ox Interpretation: Normal - Other Rad Obstructive Series X-Ray: Viewed By Me, Read By Radiologist Interpretation: FINDINGS: CHEST: Distal tip of right-sided MediPort terminates at the cavoatrial junction. Heart size appears within normal limits. No focal consolidation, significant pleural effusion, or definite pneumothorax identified. Please note that chest x-ray has limited sensitivity for the detection of pulmonary masses. ABDOMEN AND PELVIS: Nonobstructive bowel gas pattern. No definite free air. Moderate to severe constipation. Pelvic calcifications, likely phleboliths. Degenerative changes. IMPRESSION: Distal tip of right-sided MediPort terminates at the cavoatrial junction. Moderate to severe constipation. Medical Decision Making Medical Decision Making: Impression: 45 year old with bilateral lower abdominal pain. Plan: * Obstructive series * Blood work * Urinalysis * * Pepcid * IV fluids * Reassess Progress: Labs reviewed and unremarkable, no acute changes Xray shows moderate fecal retention Patient came back from xray and reports pain and gas. Maalox ordered Upon reevaluation patient has no fever and reports feeling better, is hungry and asking for food. Patient stable for discharge and to follow up with primary medical doctor Disposition Counseled Patient/Family Regarding: Need For Followup, Rx Given - Disposition Referrals: Shaik Saxena MD [Staff Provider] - Disposition: HOME/ ROUTINE Disposition Time: 13:51 Condition: STABLE Additional Instructions: Follow up with your primary medical doctor or clinic in 2-5 days for further evaluation. Take medications as prescribed. Return to the emergency department at any time if symptoms persist or worsen. Prescriptions: Docusate [Colace] 100 mg PO TID #30 cap Atropine/Hyoscyamine [] 1 tab PO QID #20 tab Instructions: Constipation (DC) - POA Present On Arrival: None - Clinical Impression Clinical Impression: Abdominal pain, Constipation - PA / AIRPORT DRIVER / Resident Statement MD/DO has reviewed & agrees with the documentation as recorded. - Scribe Statement The provider has reviewed the documentation as recorded by the Scribe Aida Kim. All medical record entries made by the Scribe were at my direction and personally dictated by me. I have reviewed the chart and agree that the record accurately reflects my personal performance of the history, physical exam, medical decision making, and the department course for this patient. I have also personally directed, reviewed, and agree with the discharge instructions and disposition.
[2016-06-14 13:01] LABS: BASO % 0.5 % (0.0-2.0); EOS % 0.5 % (0.0-4.0); LYMPH # 0.7 K/uL (1.0-4.3); LYMPH % 27.5 % (20.0-40.0); MEAN CELL VOLUME 77.7 fL (81.0-99.0); MEAN CORPUSCULAR HEMOGLOBIN 24.6 pg (27.0-31.0); MEAN CORPUSCULAR HGB CONC 31.7 g/dL (33.0-37.0); MEAN PLATELET VOLUME 8.5 fL (7.2-11.7); MONO # 0.2 K/uL (0.0-0.8); MONO % 7.1 % (0.0-10.0); NRBC % 0.3 % (0.0-2.0); RED CELL DISTRIBUTION WIDTH 17.3 % (11.5-14.5); WHITE BLOOD COUNT 2.4 K/uL (4.8-10.8)
[2016-06-14 13:06] LABS: RBC URINE < 1 /hpf (0-3); URINE BACTERIA RARE (<OCC); URINE BILIRUBIN NEGATIVE (NEGATIVE); URINE BLOOD NEGATIVE (NEGATIVE); URINE COLOR Straw (YELLOW); URINE GLUCOSE (UA) NORMAL (Normal); URINE KETONE NEGATIVE (NEGATIVE); URINE LEUKOCYTE ESTERASE NEG Leu/uL (Negative); URINE PROTEIN NEGATIVE (NEGATIVE); URINE UROBILINOGEN NORMAL mg/dL (0.2-1.0); WBC URINE 1 /hpf (0-5)
[2016-06-14 13:07] LABS: CHLORIDE 100 mmol/L (98-107)
[2016-06-14 13:08] LABS: POTASSIUM 4.3 mmol/L (3.6-5.2); SODIUM 139 mmol/L (132-148)
[2016-06-14 13:10] LABS: ALB/GLOB RATIO 1.4 (1.0-2.1); ALKALINE PHOSPHATASE 89 U/L (38-126); AST/SGOT 30 U/L (14-36); BILIRUBIN,TOTAL 0.6 mg/dL (0.2-1.3); BLOOD UREA NITROGEN 11 mg/dL (7-17); CARBON DIOXIDE 28 mmol/L (22-30); GFR AFRICAN-AMERICAN > 60; TOTAL PROTEIN 6.9 g/dL (6.3-8.3)
[2016-06-14 13:11] LABS: ALT/SGPT 26 U/L (9-52); CALCIUM 8.5 mg/dl (8.6-10.4); GLUCOSE,RANDOM 77 mg/dL (65-105)
--- NOTE | 2016-06-14 13:23 | RAD ---
PROCEDURE: Radiographs of the chest and abdomen (obstructive series) HISTORY: Abdominal pain COMPARISON: Chest x-ray performed 05/19/16 FINDINGS: CHEST: Distal tip of right-sided MediPort terminates at the cavoatrial junction. Heart size appears within normal limits. No focal consolidation, significant pleural effusion, or definite pneumothorax identified. Please note that chest x-ray has limited sensitivity for the detection of pulmonary masses. ABDOMEN AND PELVIS: Nonobstructive bowel gas pattern. No definite free air. Moderate to severe constipation. Pelvic calcifications, likely phleboliths. Degenerative changes. IMPRESSION: Distal tip of right-sided MediPort terminates at the cavoatrial junction. Moderate to severe constipation.
[2016-06-14] MEDS ORDERED: Alum-Mag Hydrox-Simethicone Susp (30 mL) PO STA (13:41)
[2016-06-14] MEDS ORDERED: Alum-Mag Hydrox-Simethicone Susp (30 mL) ONE (14:05)
[2016-06-14 14:56] VITALS: BP 162/96; PULSE 82; TEMP 97.8
[2016-06-14 18:14] VITALS: O2SAT 99
== END 2016-06-14 15:15 | disposition home or self-care (01) ==
LOC: C.ER 11:38
DX: K59.00 Constipation, unspecified (principal); R10.31 Right lower quadrant pain; R10.32 Left lower quadrant pain
CPT/HCPCS: 74022; 80053; 81001; 83690; 85025; 96361; 96374; 99283; J7040

== ENCOUNTER 2016-07-09 12:22 | Emergency (ER) | payer MEDICARE, OTHER ==
[2016-07-09 12:23] VITALS: BMI 34.4
[2016-07-09 12:34] VITALS: O2SAT 98
[2016-07-09] MEDS ORDERED: oxyCODONE 5 mg Immediate Release Tab PO STA (12:41)
--- NOTE | 2016-07-09 12:41 | C.PDOC ---
History Of Present Illness A 45 year old female presents to the emergency room with bilateral knee pain and left shoulder pain s/p a mechanical fall between 11 am and 12 pm this morning. Patient reports that she tripped and [place] at the bus stop, landing on both knees. Patient is currently receiving chemotherapy for stage 4 colon cancer. Patient denies any fever, chills, headaches, dizziness, numbness, weakness, any sensory changes, chest pain, shortness of breath, head trauma/LOC , nausea, vomiting, diarrhea, or any other complaints. Time Seen by Provider: 07/09/16 12:34 Chief Complaint (Nursing): Lower Extremity Problem/Injury History Per: Patient History/Exam Limitations: no limitations Onset/Duration Of Symptoms: Hrs (2) Current Symptoms Are (Timing): Still Present Severity: Mild Recent travel outside of the [place]: No - Knee Description Of Injury: Fell. denies: Laceration Past Medical History Reviewed: Historical Data, Nursing Documentation, Vital Signs Vital Signs: Last Vital Signs Temp 97.3 F L 07/09/16 12:30 Pulse 87 07/09/16 12:30 Resp 16 07/09/16 12:30 BP 119/78 07/09/16 12:30 Pulse Ox 98 07/09/16 13:29 - Medical History PMH: Anemia, Anxiety, Arthritis, Asthma, Back Problems, Bipolar Disorder, Depression, Malignancy (Colon), Rheumatoid Arthritis Denies: Chronic Kidney Disease - [facility] Procedures CLOSED ENDOSCOPIC BIOPSY OF LARGE INTESTINE (05/23/14) COLONOSCOPY (08/12/14) DX ULTRASOUND-ABDOMEN (05/23/14) INSERTION OF TOTALLY IMPLANTABLE VASC ACCESS DEVIC (05/23/14) LAPAROSCOP LYSIS-PERITONEAL ADHES (05/23/14) LAPAROSCOPIC SIGMOIDECTOMY (05/23/14) OTHER ENDOSCOPY OF SM INTEST (05/23/14) PACKED CELL TRANSFUSION (05/23/14) PERCUTAN NEEDLE BX OF LIVER (05/23/14) REMOVAL OF VAD FROM TRUNK SUBCU/FASCIA, PERC APPROACH (03/16/15) Family History: States: Unknown Family Hx - Social History Hx Tobacco Use: No Hx Alcohol Use: Yes Hx Substance Use: No - Immunization History Hx Tetanus Toxoid Vaccination: Yes Hx Influenza Vaccination: Yes (2015) Hx Pneumococcal Vaccination: Yes Review Of Systems Except As Marked, All Systems Reviewed And Found Negative. Constitutional: Negative for: Fever, Chills Cardiovascular: Negative for: Chest Pain Respiratory: Negative for: Shortness of Breath Gastrointestinal: Negative for: Nausea, Vomiting, Diarrhea Musculoskeletal: Positive for: Shoulder Pain (Left shoulder pain), Other ( Bilateral knee pain) Skin: Negative for: Rash, Bruising Neurological: Negative for: Weakness, Numbness, Headache, Dizziness Physical Exam - Physical Exam Appears: Well, Non-toxic Skin: Normal Color, Warm, No Rash, No Ecchymosis Head: Atraumatic, Normacephalic Eye(s): bilateral: Normal Inspection Oral Mucosa: Moist Neck: Normal ROM, No Midline Cervical Tenderness, No Paracervical Tenderness, Supple Cardiovascular: Rhythm Regular Respiratory: Normal Breath Sounds, No Rales, No Rhonchi, No Wheezing Gastrointestinal/Abdominal: Soft, No Tenderness, No Guarding, No Rebound Extremity: Normal ROM, Tenderness (Left shoulder - tenderness laterally. Tenderness over bilateral patellas. ), No Pedal Edema, No Calf Tenderness, No Deformity, No Swelling, Other (Normal pulses, strength, and sensation. No abrasions, lacerations, or signs of visual trauma.) Extremity: Bilateral: Normal Color And Temperature, Normal ROM Pulses: Left Dorsalis Pedis: Normal, Right Dorsalis Pedis: Normal Neurological/Psych: Oriented x3, Normal Speech, Normal Cognition, Normal Motor, Normal Sensation ED Course And Treatment O2 Sat by Pulse Oximetry: 98 - Other Rad Bilateral Knees/Left Shoulder X-rays X-Ray: Interpreted by Me, Viewed By Me Interpretation: Bilateral Knees X-ray Impression: As read by me, no acute fracture or dislocation. Left Shoulder X-ray Impression: As read by me, no acute fracture or dislocation. Medical Decision Making Medical Decision Making: I disc xray result w the pt. she is comfortable w dc. she is ambulatory in the ED with steady gait. Disposition - Disposition Disposition: HOME/ ROUTINE Disposition Time: 13:28 Condition: STABLE - Clinical Impression Clinical Impression: Contusion of knee, left, Contusion of knee, right, Shoulder contusion - Scribe Statement The provider has reviewed the documentation as recorded by the Scribe Kwesi Carvalho All medical record entries made by the Scribe were at my direction and personally dictated by me. I have reviewed the chart and agree that the record accurately reflects my personal performance of the history, physical exam, medical decision making, and the department course for this patient. I have also personally directed, reviewed, and agree with the discharge instructions and disposition.
[2016-07-09] MEDS ORDERED: oxyCODONE 5 mg Immediate Release Tab ONE (12:59)
[2016-07-09 13:35] VITALS: BP 120/71; PULSE 78; RESP 18; TEMP 98.2
--- NOTE | 2016-07-09 13:53 | RAD ---
PROCEDURE: Radiographs of the Left Shoulder HISTORY: fall pain COMPARISON: Comparison made with radiographs left shoulder 05/19/2016. FINDINGS: BONES: Normal. No fracture. JOINTS: Mild degenerative changes left acromioclavicular and glenohumeral joints. Small calcifications within the soft tissues adjacent to the greater tuberosity likely representing calcific tendinitis. SOFT TISSUES: As above. OTHER FINDINGS: None. IMPRESSION: Mild DJD at of the left acromioclavicular and glenohumeral joints. Findings also consistent with mild calcific tendinitis
--- NOTE | 2016-07-09 16:19 | RAD ---
PROCEDURE: Bilateral Knee Radiographs. HISTORY: fall pain COMPARISON: Left knee, 02/01/2016 FINDINGS: BONES: Right Knee: Normal. No fracture. Left Knee: Normal. No fracture. JOINTS: Right Knee: Tricompartmental osteoarthritis with joint space narrowing most pronounced in the medial compartment. No articular erosions. Left knee: Tricompartmental osteoarthritis with joint space narrowing most pronounced in the medial compartment. No articular erosions. SOFT TISSUES: Right Knee: Normal. Left Knee: Normal. JOINT EFFUSION: Right Knee: None. Left Knee: None. OTHER FINDINGS: None. IMPRESSION: Bilateral tricompartmental osteoarthritis most pronounced in the medial compartment. No acute fracture.
== END 2016-07-09 13:39 | disposition home or self-care (01) ==
LOC: C.ER 12:22
DX: S80.02XA Contusion of left knee, initial encounter (principal); S80.01XA Contusion of right knee, initial encounter; S40.012A Contusion of left shoulder, initial encounter; W01.0XXA Fall on same level from slipping, tripping and stumbling without subsequent striking against object, initial encounter; Y92.521 Bus station as the place of occurrence of the external cause

== ENCOUNTER 2016-08-12 19:55 | Emergency (ER) | payer MEDICARE, OTHER ==
[2016-08-12 19:55] VITALS: BMI 34.4
[2016-08-12] MEDS ORDERED: Sodium Chloride 0.9% 1,000 ML IV ONE (20:34)
[2016-08-12] MEDS ORDERED: Sodium Chloride 0.9% 1,000 ML ONE (21:05)
[2016-08-12 21:22] LABS: BASO % 0.3 % (0.0-2.0); EOS % 0.6 % (0.0-4.0); HEMATOCRIT 36.1 % (34.0-47.0); LYMPH # 1.3 K/uL (1.0-4.3); LYMPH % 24.3 % (20.0-40.0); MEAN CELL VOLUME 76.7 fL (81.0-99.0); MEAN CORPUSCULAR HEMOGLOBIN 24.5 pg (27.0-31.0); MEAN PLATELET VOLUME 7.8 fL (7.2-11.7); MONO # 0.3 K/uL (0.0-0.8); MONO % 6.3 % (0.0-10.0); NRBC % 0.1 % (0.0-2.0); RED CELL DISTRIBUTION WIDTH 17.8 % (11.5-14.5); WHITE BLOOD COUNT 5.5 K/uL (4.8-10.8)
[2016-08-12 21:28] LABS: CHLORIDE 96 mmol/L (98-107); INR 1.2
[2016-08-12 21:29] LABS: POTASSIUM 3.4 mmol/L (3.6-5.2); SODIUM 135 mmol/L (132-148)
[2016-08-12 21:31] LABS: CARBON DIOXIDE 24 mmol/L (22-30); GFR AFRICAN-AMERICAN > 60
[2016-08-12 21:32] LABS: ALB/GLOB RATIO 1.1 (1.0-2.1); ALKALINE PHOSPHATASE 89 U/L (38-126); ALT/SGPT 22 U/L (9-52); AST/SGOT 26 U/L (14-36); BILIRUBIN,TOTAL 0.4 mg/dL (0.2-1.3); BLOOD UREA NITROGEN 15 mg/dL (7-17); CALCIUM 8.7 mg/dl (8.6-10.4); GLUCOSE,RANDOM 86 mg/dL (65-105); TOTAL PROTEIN 7.5 g/dL (6.3-8.3)
--- NOTE | 2016-08-12 21:48 | RAD ---
HISTORY: [facility] COMPARISON: 05/19/2016 FINDINGS: LUNGS: Right chest wall port with tip extending into the SVC. No focal infiltrate or effusion. PLEURA: No significant pleural effusion identified, no pneumothorax apparent. CARDIOVASCULAR: Normal. OSSEOUS STRUCTURES: No significant abnormalities. VISUALIZED UPPER ABDOMEN: Normal. OTHER FINDINGS: None. IMPRESSION: No active disease.
--- NOTE | 2016-08-12 21:48 | C.PDOC ---
Time Seen by Provider: 08/12/16 20:10 Chief Complaint (Nursing): GI Problem History Per: Patient Onset/Duration Of Symptoms: Days (1) Current Symptoms Are (Timing): Still Present Number Of Bleeding Episodes: Multiple: Amount of Blood Loss: Small Severity: Mild Associated Symptoms: Rectal Bleeding, Other (Constipation) Additional History Per: Prior Records Past Medical History Reviewed: Historical Data, Nursing Documentation, Vital Signs Vital Signs: Last Vital Signs Temp 98.6 F 08/12/16 19:56 Pulse 91 H 08/12/16 19:56 Resp 14 08/12/16 19:56 BP 124/72 08/12/16 19:56 Pulse Ox 96 08/12/16 19:56 - Medical History PMH: Anemia, Anxiety, Arthritis, Asthma, Back Problems, Bipolar Disorder, Depression, Malignancy (Colon), Rheumatoid Arthritis Other Surgeries: Colon resection - [facility] Procedures CLOSED ENDOSCOPIC BIOPSY OF LARGE INTESTINE (05/23/14) COLONOSCOPY (08/12/14) DX ULTRASOUND-ABDOMEN (05/23/14) INSERTION OF TOTALLY IMPLANTABLE VASC ACCESS DEVIC (05/23/14) LAPAROSCOP LYSIS-PERITONEAL ADHES (05/23/14) LAPAROSCOPIC SIGMOIDECTOMY (05/23/14) OTHER ENDOSCOPY OF SM INTEST (05/23/14) PACKED CELL TRANSFUSION (05/23/14) PERCUTAN NEEDLE BX OF LIVER (05/23/14) REMOVAL OF VAD FROM TRUNK SUBCU/FASCIA, PERC APPROACH (03/16/15) Family History: States: Unknown Family Hx - Social History Hx Tobacco Use: No Hx Alcohol Use: Yes Hx Substance Use: No - Immunization History Hx Tetanus Toxoid Vaccination: Yes Hx Influenza Vaccination: Yes (2015) Hx Pneumococcal Vaccination: Yes Review Of Systems Except As Marked, All Systems Reviewed And Found Negative. Constitutional: Negative for: Fever, Weakness Respiratory: Negative for: Shortness of Breath Gastrointestinal: Positive for: Constipation. Negative for: Vomiting, Melena, Hematemesis Genitourinary: Negative for: Dysuria Musculoskeletal: Negative for: Neck Pain Skin: Negative for: Rash Neurological: Negative for: Weakness, Numbness, Seizures Physical Exam - Physical Exam Appears: Non-toxic, No Acute Distress Skin: Normal Color, Warm, Dry Head: Atraumatic, Normacephalic Eye(s): bilateral: PERRL, EOMI Neck: Normal ROM, Supple Cardiovascular: Rhythm Regular Respiratory: Normal Breath Sounds, No Accessory Muscle Use Gastrointestinal/Abdominal: Soft Rectal: Heme Negative, No Maroon Stool, No Melena, No Blood Streaked Stool, Other (Brown stool) Extremity: Normal ROM Neurological/Psych: Oriented x3, Normal Motor, Normal Sensation ED Course And Treatment - Laboratory Results Result Diagrams: 08/12/16 21:11 08/12/16 21:11 Interpretation Of Abnormal: Hgb has increased from prior results. O2 Sat by Pulse Oximetry: 96 Pulse Ox Interpretation: Normal Reassessment Condition: Improved Disposition Counseled Patient/Family Regarding: Studies Performed, Diagnosis, Need For Followup, Rx Given - Disposition Referrals: Shaik Saxena MD [Staff Provider] - Disposition: HOME/ ROUTINE Disposition Time: 21:48 Condition: STABLE Additional Instructions: Drink plenty of fluids. Follow up with your doctor this week. Return to the ER if you develop fever, vomiting, dizziness, abdominal pain, worsening of symptoms or if you have any other concerns. Prescriptions: Polyethylene Glycol 3350 [Miralax] 17 gm PO DAILY #7 packet Instructions: Constipation (ED), Rectal Bleeding (ED) - Clinical Impression Clinical Impression: Constipation, History of rectal bleeding
[2016-08-12 22:20] VITALS: BP 119/81; PULSE 101; RESP 18; TEMP 98; O2SAT 97
== END 2016-08-12 22:20 | disposition home or self-care (01) ==
LOC: C.ER 19:55
DX: K59.00 Constipation, unspecified (principal)
CPT/HCPCS: 71010; 80053; 83690; 85025; 85610; 85730; 86850; 86900; 96361; 96374; 99284; C9113; G0328; J7040

== ENCOUNTER 2016-09-07 14:59 | Emergency (ER) | payer MEDICARE ==
[2016-09-07 14:59] VITALS: BMI 34.4
[2016-09-07 15:10] VITALS: BP 133/100; PULSE 90; RESP 16; TEMP 97.3; O2SAT 98
--- NOTE | 2016-09-07 15:21 | C.PDOC ---
History Of Present Illness A 45 year old female presents to the emergency room with bilateral knee pain for many years due to arthritis more on the Left side this morning. She reports that the pain felt worse after she was kneeling on her knees this morning to get up from her bed. She denies falling or new trauma to the knee. She states that she normally taking oxy 15 for the pain but this did not help her with the knee pain today. She denies Tylenol or NSAID use. Patient is currently receiving chemotherapy for stage 4 colon cancer, last dose last Saturday. Heme/ onc is Dr. Heath. Patient denies any fever, chills, headaches, dizziness, numbness, weakness, any sensory changes, chest pain, shortness of breath, head trauma/LOC, nausea, vomiting, diarrhea, or any other complaints. (Sera Hurley) History Per: Patient History/Exam Limitations: no limitations Onset/Duration Of Symptoms: Worse Since (this morning), Other (years) Current Symptoms Are (Timing): Still Present Severity: Moderate Pain Scale Rating Of: 6 Recent travel outside of the [place]: No - Knee Description Of Injury: denies: Fell Alleviating Factor(s): Other (none) Time Seen by Provider: 09/07/16 15:04 Chief Complaint (Nursing): Lower Extremity Problem/Injury Past Medical History - Medical History PMH: Anemia, Anxiety, Arthritis (osteoarthritis), Asthma, Back Problems, Bipolar Disorder, Depression, Malignancy (Colon) Denies: Chronic Kidney Disease Family History: States: Unknown Family Hx - Social History Hx Tobacco Use: No Hx Alcohol Use: Yes Hx Substance Use: No - Immunization History Hx Tetanus Toxoid Vaccination: Yes Hx Influenza Vaccination: Yes (2016) Hx Pneumococcal Vaccination: Yes Review Of Systems Constitutional: Negative for: Fever, Chills Cardiovascular: Negative for: Chest Pain, Palpitations Respiratory: Negative for: Cough, SOB with Excertion Gastrointestinal: Negative for: Nausea, Vomiting, Abdominal Pain Musculoskeletal: Positive for: Other (admits to b/l knee pain worse on the left) . Negative for: Neck Pain, Shoulder Pain, Back Pain, Leg Pain Skin: Negative for: Rash Neurological: Negative for: Weakness, Numbness Physical Exam - Physical Exam Appears: Well, Non-toxic, No Acute Distress Skin: Normal Color, Warm, Dry Head: Atraumatic, Normacephalic Eye(s): bilateral: Normal Inspection Oral Mucosa: Moist Neck: Normal, Normal ROM Cardiovascular: Rhythm Regular Respiratory: Normal Breath Sounds, No Accessory Muscle Use Gastrointestinal/Abdominal: Bowel Sounds, Soft, No Tenderness, Other (obese) Back: Normal Inspection Extremity: Normal ROM (crepitus with ROM), Tenderness (generalized), No Pedal Edema, No Swelling, Other (no erythema, not warm to touch, no signs of trauma, normal ROM, sensation intact, able to bear weight, normal gait) Extremity: Bilateral: Atraumatic, Hips Non-Tender, Normal ROM Pulses: Left Dorsalis Pedis: Normal, Right Dorsalis Pedis: Normal Neurological/Psych: Oriented x3, Normal Speech Disoriented To: Person, Place, Time Gait: Steady ED Course And Treatment O2 Sat by Pulse Oximetry: 98 Medical Decision Making Medical Decision Making: Plan: - Toradol IM x 1 dose - Ice packs applied to L knee - L knee X ray Pain likely due to osteoarthritis. X ray read by Dr. Rodriguez - no fractures, acute injuries No trauma, normal ROM, crepitus on exam, patient is able to bear weight. Was seen ambulating. Will apply knee brace and offer crutches. (Sera Hurley) pt seen with resident. left knee pain consitent with oa. pain treated. advise outpt f/u . agree with resident findings. (Bobby Rodriguez) Disposition - Disposition Disposition Time: 15:40 - Disposition Referrals: Shaik Saxena MD [Staff Provider] - Disposition: HOME/ ROUTINE Condition: GOOD Additional Instructions: Patient is to take Tylenol over the counter as needed for knee pain and continue her home medications. She is to follow up with her primary care doctor within 1-2 days of discharge. She was instructed to return to the emergency room if the pain worsens. Instructions: Osteoarthritis (ED) Forms: General Discharge Instructions Print Language: YI - Clinical Impression Clinical Impression: Arthritis, Joint pain, Osteoarthritis
--- NOTE | 2016-09-07 15:29 | C.PDOC ---
History Of Present Illness 45 yo female, hx of arthitis, c/o of left knee pain. contrary to triage, pt denies fall. pt states pain consistent with OA. no fevers, no other complaints. pt take oxycodone for pain Time Seen by Provider: 09/07/16 15:04 Chief Complaint (Nursing): Lower Extremity Problem/Injury Past Medical History Reviewed: Historical Data, Nursing Documentation, Vital Signs Vital Signs: Last Vital Signs Temp 97.3 F L 09/07/16 15:00 Pulse 90 09/07/16 15:00 Resp 16 09/07/16 15:00 BP 133/100 H 09/07/16 15:00 Pulse Ox 98 09/07/16 15:44 - Medical History PMH: Anemia, Anxiety, Arthritis, Asthma, Back Problems, Bipolar Disorder, Depression, Malignancy (Colon), Rheumatoid Arthritis Denies: Chronic Kidney Disease - [facility] Procedures CLOSED ENDOSCOPIC BIOPSY OF LARGE INTESTINE (05/23/14) COLONOSCOPY (08/12/14) DX ULTRASOUND-ABDOMEN (05/23/14) INSERTION OF TOTALLY IMPLANTABLE VASC ACCESS DEVIC (05/23/14) LAPAROSCOP LYSIS-PERITONEAL ADHES (05/23/14) LAPAROSCOPIC SIGMOIDECTOMY (05/23/14) OTHER ENDOSCOPY OF SM INTEST (05/23/14) PACKED CELL TRANSFUSION (05/23/14) PERCUTAN NEEDLE BX OF LIVER (05/23/14) REMOVAL OF VAD FROM TRUNK SUBCU/FASCIA, PERC APPROACH (03/16/15) Family History: States: Unknown Family Hx - Social History Hx Tobacco Use: No Hx Alcohol Use: Yes Hx Substance Use: No - Immunization History Hx Tetanus Toxoid Vaccination: Yes Hx Influenza Vaccination: Yes (2016) Hx Pneumococcal Vaccination: Yes Review Of Systems Except As Marked, All Systems Reviewed And Found Negative. Musculoskeletal: Positive for: Other ((+)knee pain) Physical Exam - Physical Exam Appears: Well, No Acute Distress, Other (obese) Skin: Normal Color, Warm, Dry Eye(s): bilateral: Normal Inspection, PERRL, EOMI Nose: Normal Throat: Normal Neck: Normal Cardiovascular: Rhythm Regular Respiratory: Normal Breath Sounds Gastrointestinal/Abdominal: Normal Exam Back: Normal Inspection Extremity: Normal ROM, Tenderness (mild), No Deformity, Swelling (mild left knee ) ED Course And Treatment O2 Sat by Pulse Oximetry: 98 Medical Decision Making Medical Decision Making: arthrits nsaid, outpt f/u . Disposition - Disposition Referrals: Shaik Saxena MD [Staff Provider] - Disposition: HOME/ ROUTINE Disposition Time: 04:00 Condition: GOOD Additional Instructions: Patient is to take Tylenol over the counter as needed for knee pain and continue her home medications. She is to follow up with her primary care doctor within 1-2 days of discharge. She was instructed to return to the emergency room if the pain worsens. Instructions: Osteoarthritis (ED) Forms: General Discharge Instructions Print Language: INDONESIAN - Clinical Impression Clinical Impression: Arthritis, Joint pain, Osteoarthritis
--- NOTE | 2016-09-07 16:09 | RAD ---
PROCEDURE: Left Knee Radiographs. HISTORY: Pain. History of arthritis peer COMPARISON: 07/09/2016 FINDINGS: BONES: Normal. No fracture. JOINTS: Tricompartmental osteoarthritis. Most pronounced in the medial compartment with joint space narrowing. No articular erosions. JOINT EFFUSION: None. OTHER FINDINGS: None. IMPRESSION: Tricompartmental osteoarthritis. Most pronounced in the medial compartment. No significant change from 07/09/2016.
== END 2016-09-07 15:53 | disposition home or self-care (01) ==
LOC: C.ER 14:59
DX: M17.12 Unilateral primary osteoarthritis, left knee (principal)

== ENCOUNTER 2016-10-03 15:27 | Observation (INO) | payer MEDICARE, OTHER ==
[2016-10-03 15:28] VITALS: BMI 34.4
[2016-10-03] MEDS ORDERED: Sodium Chloride 0.9% 1,000 ML IV ONE (16:08)
--- NOTE | 2016-10-03 16:32 | C.PDOC ---
History Of Present Illness 45 y/o female with Hx of stage 4 colon cancer and bipolar disorder presents to ED with complaints of bright red rectal bleeding that started this morning at 8am with bowel movement. Patient denies fever, chills, nausea, vomiting, diarrhea or any other complaints at this time. Time Seen by Provider: 10/03/16 16:02 Chief Complaint (Nursing): GI Problem History Per: Patient History/Exam Limitations: no limitations Onset/Duration Of Symptoms: Hrs Current Symptoms Are (Timing): Still Present Associated Symptoms: Melena Modifying Factors: None Past Medical History Reviewed: Historical Data, Nursing Documentation, Vital Signs Vital Signs: Last Vital Signs Temp 97.4 F L 10/03/16 15:38 Pulse 96 H 10/03/16 15:38 Resp 16 10/03/16 15:38 BP 124/84 10/03/16 15:38 Pulse Ox 99 10/03/16 18:29 - Medical History PMH: Anemia, Anxiety, Arthritis (osteoarthritis), Asthma, Back Problems, Bipolar Disorder, Depression, Malignancy (Colon), Rheumatoid Arthritis Other Surgeries: colon resection - [facility] Procedures CLOSED ENDOSCOPIC BIOPSY OF LARGE INTESTINE (05/23/14) COLONOSCOPY (08/12/14) DX ULTRASOUND-ABDOMEN (05/23/14) INSERTION OF TOTALLY IMPLANTABLE VASC ACCESS DEVIC (05/23/14) LAPAROSCOP LYSIS-PERITONEAL ADHES (05/23/14) LAPAROSCOPIC SIGMOIDECTOMY (05/23/14) OTHER ENDOSCOPY OF SM INTEST (05/23/14) PACKED CELL TRANSFUSION (05/23/14) PERCUTAN NEEDLE BX OF LIVER (05/23/14) REMOVAL OF VAD FROM TRUNK SUBCU/FASCIA, PERC APPROACH (03/16/15) Family History: States: Unknown Family Hx - Social History Hx Tobacco Use: No Hx Alcohol Use: Yes Hx Substance Use: No - Immunization History Hx Tetanus Toxoid Vaccination: Yes Hx Influenza Vaccination: Yes (2016) Hx Pneumococcal Vaccination: Yes Review Of Systems Except As Marked, All Systems Reviewed And Found Negative. Constitutional: Negative for: Fever, Chills Gastrointestinal: Positive for: Hematochezia, Rectal Pain. Negative for: Nausea , Vomiting, Abdominal Pain, Diarrhea Genitourinary: Negative for: Dysuria Musculoskeletal: Negative for: Back Pain Skin: Negative for: Rash Physical Exam - Physical Exam Appears: Non-toxic, No Acute Distress Skin: Normal Color, Warm, No Rash Head: Atraumatic Oral Mucosa: Moist Chest: Symmetrical, Other (Port on right upper chest) Cardiovascular: Rhythm Regular Respiratory: Normal Breath Sounds, No Rales, No Rhonchi, No Wheezing Gastrointestinal/Abdominal: Soft, No Tenderness, No Guarding, No Rebound Rectal: Normal Exam Neurological/Psych: Oriented x3, Normal Speech, Normal Cognition Gait: Steady ED Course And Treatment - Laboratory Results Result Diagrams: 10/03/16 17:00 10/03/16 17:00 Lab Interpretation: No Acute Changes O2 Sat by Pulse Oximetry: 99 (RA) Pulse Ox Interpretation: Normal Progress Note: Treated with NSS. On re-evaluation abdomen soft Reassessment Condition: Unchanged - Physician Consult Information Physician Contacted: Rosaura Harris Outcome Of Conversation: admit Disposition Discussed With : Rosaura Harris Doctor Will See Patient In The: Hospital - Disposition Disposition: HOSPITALIZED Disposition Time: 18:35 Condition: STABLE Forms: [facility] (Taiwanese) - POA Present On Arrival: None - Clinical Impression Clinical Impression: Gastrointestinal hemorrhage, Colon cancer - Scribe Statement The provider has reviewed the documentation as recorded by the Christopheribirasema Hwang All medical record entries made by the Christopheribirasema were at my direction and personally dictated by me. I have reviewed the chart and agree that the record accurately reflects my personal performance of the history, physical exam, medical decision making, and the department course for this patient. I have also personally directed, reviewed, and agree with the discharge instructions and disposition.
[2016-10-03 17:05] LABS: BASO % 0.3 % (0.0-2.0); EOS % 0.2 % (0.0-4.0); HEMATOCRIT 33.3 % (34.0-47.0); LYMPH # 0.8 K/uL (1.0-4.3); LYMPH % 28.4 % (20.0-40.0); MEAN CELL VOLUME 78.5 fL (81.0-99.0); MEAN CORPUSCULAR HEMOGLOBIN 26.1 pg (27.0-31.0); MEAN CORPUSCULAR HGB CONC 33.2 g/dL (33.0-37.0); MEAN PLATELET VOLUME 7.4 fL (7.2-11.7); MONO # 0.2 K/uL (0.0-0.8); MONO % 7.6 % (0.0-10.0); NRBC % 0.3 % (0.0-2.0); RED CELL DISTRIBUTION WIDTH 19.5 % (11.5-14.5); WHITE BLOOD COUNT 2.9 K/uL (4.8-10.8)
[2016-10-03 17:14] LABS: CHLORIDE 103 mmol/L (98-107); INR 1.1; POTASSIUM 3.9 mmol/L (3.6-5.2); SODIUM 140 mmol/L (132-148)
[2016-10-03 17:15] LABS: RBC URINE 37 /hpf (0-3); URINE BACTERIA RARE (<OCC); URINE BILIRUBIN NEGATIVE (NEGATIVE); URINE BLOOD 3+ (NEGATIVE); URINE COLOR Yellow (YELLOW); URINE GLUCOSE (UA) NORMAL (Normal); URINE KETONE NEGATIVE (NEGATIVE); URINE LEUKOCYTE ESTERASE NEG Leu/uL (Negative); URINE PROTEIN NEGATIVE (NEGATIVE); WBC URINE 4 /hpf (0-5)
[2016-10-03 17:16] LABS: GFR AFRICAN-AMERICAN > 60
[2016-10-03 17:17] LABS: ALB/GLOB RATIO 1.2 (1.0-2.1); ALKALINE PHOSPHATASE 76 U/L (38-126); ALT/SGPT 32 U/L (9-52); AST/SGOT 24 U/L (14-36); BILIRUBIN,TOTAL 0.5 mg/dL (0.2-1.3); BLOOD UREA NITROGEN 8 mg/dL (7-17); CALCIUM 8.4 mg/dl (8.6-10.4); CARBON DIOXIDE 28 mmol/L (22-30); GLUCOSE,RANDOM 99 mg/dL (65-105); TOTAL PROTEIN 6.2 g/dL (6.3-8.3)
[2016-10-03] MEDS ORDERED: OXYCODONE 15 MG PO PRN (21:46)
[2016-10-03] MEDS ORDERED: oxyCODONE 5 mg Immediate Release Tab ONE (21:59)
[2016-10-03] MEDS ORDERED: Home Med 1 UNIT (Solifenacin Succinate [Vesicare] 5 MG) PO SCH (22:00)
[2016-10-03] MEDS ORDERED: CLONAZEPAM 2 MG PO SCH (22:00)
--- NOTE | 2016-10-03 23:05 | CP.PCM.HP ---
History of Present Illness - History of Present Illness History of Present Illness: 45-year-old female with past medical history of bipolar disease, arthritis and colon malignancy stage IV presents to the ED with complaints of rectal bleeding of onset with bowel movement this morning. Pt denies any fever, chills, n/v/d, abdominal pain, chest pain or sob. Denies dizziness or weakness, sycope, palpitations. Present on Admission - Present on Admission Any Indicators Present on Admission: No Review of Systems - Gastrointestinal Additional comments: BRBPR Past Patient History - Infectious Disease Hx of Infectious Diseases: None - Past Medical History & Family History Past Medical History?: Yes - Past Social History Smoking Status: Never Smoked - CARDIAC Hx Cardiac Disorders: No - PULMONARY Hx Asthma: Yes - NEUROLOGICAL Hx Neurological Disorder: No - HEENT Hx HEENT Problems: No - RENAL Hx Chronic Kidney Disease: No - ENDOCRINE/METABOLIC Hx Endocrine Disorders: No - HEMATOLOGICAL/ONCOLOGICAL Hx Anemia: Yes - INTEGUMENTARY Hx Dermatological Problems: No - MUSCULOSKELETAL/RHEUMATOLOGICAL Hx Arthritis: Yes (osteoarthritis) Hx Rheumatoid Arthritis: Yes - GASTROINTESTINAL Other/Comment: COLON CANCER STAGE 4 WITH CHEMOTHERAPY. R side port a cath - GENITOURINARY/GYNECOLOGICAL Hx Genitourinary Disorders: No - PSYCHIATRIC Hx Anxiety: Yes Hx Bipolar Disorder: Yes Hx Depression: Yes Hx Substance Use: No - SURGICAL HISTORY Hx Surgeries: Yes (SEE COMMENT) Hx Vascular Access Device: Yes (RIGHT SUBCLAVIAN) Other/Comment: colon cancer surgery april 2014 to remove tumor, rt side subclavian PC - ANESTHESIA Hx Anesthesia: Yes Hx Anesthesia Reactions: No Meds Allergies/Adverse Reactions: Allergies Allergy/AdvReac Type Severity Reaction Status Date / Time No Known Allergies Allergy Verified 09/07/16 15:04 Physical Exam - Constitutional Appears: Well, No Acute Distress - Head Exam Head Exam: ATRAUMATIC, NORMAL INSPECTION, NORMOCEPHALIC - Eye Exam Eye Exam: EOMI, Normal appearance, PERRL Pupil Exam: NORMAL ACCOMODATION, PERRL - ENT Exam ENT Exam: Mucous Membranes Moist - Neck Exam Neck exam: Positive for: Full Rom - Respiratory Exam Respiratory Exam: Decreased Breath Sounds - Cardiovascular Exam Cardiovascular Exam: REGULAR RHYTHM, +S1, +S2 - GI/Abdominal Exam GI & Abdominal Exam: Diminished Bowel Sounds, Soft - Rectal Exam Rectal Exam: Bloody Stool - Neurological Exam Neurological exam: Alert, Oriented x3 Results - Vital Signs Recent Vital Signs: Last Vital Signs Temp 98.1 F 10/03/16 22:00 Pulse 80 10/03/16 22:00 Resp 18 10/03/16 22:00 BP 140/81 10/03/16 22:00 Pulse Ox 99 10/03/16 22:00 - Labs Result Diagrams: 10/05/16 06:15 10/04/16 06:36 Assessment & Plan (1) Abdominal pain Status: Acute (2) Acute renal insufficiency Status: Acute (3) Anemia Status: Acute (4) Anxiety Status: Acute (5) Arm sprain Status: Acute (6) Arthritis Status: Acute (7) Cellulitis Status: Acute (8) Cellulitis and abscess Status: Acute (9) Chemotherapy adverse reaction Status: Acute (10) Closed head injury Status: Acute (11) Cocaine abuse Status: Acute (12) Colon cancer Status: Acute (13) Colon cancer metastasized to liver Status: Acute (14) Colonic mass Status: Acute (15) Constipation Status: Acute (16) Constipation Status: Acute (17) Contusion of chest Status: Acute (18) Contusion of knee, left Status: Acute (19) Contusion of knee, right Status: Acute (20) Contusion of lower back Status: Acute (21) Dizziness Status: Acute (22) Duodenitis Status: Acute (23) External hemorrhoid, bleeding Status: Acute (24) Fall in bathtub Status: Acute (25) Fever Status: Acute (26) Gastrointestinal hemorrhage Status: Acute (27) Head injury Status: Acute (28) Head trauma Status: Acute (29) History of rectal bleeding Status: Acute (30) Infection due to portacath Status: Acute (31) Joint pain Status: Acute (32) Knee contusion Status: Acute (33) Knee injury Status: Acute (34) Knee pain Status: Acute (35) Knee pain, bilateral Status: Acute (36) Knee sprain, bilateral Status: Acute (37) Leukocytosis Status: Acute (38) Liver lesion Status: Acute (39) Muscle pain Status: Acute (40) Nausea Status: Acute (41) Osteoarthritis Status: Acute (42) Pancytopenia Status: Acute (43) Pancytopenia due to antineoplastic chemotherapy Status: Acute (44) Rectal bleeding Status: Acute (45) Shoulder contusion Status: Acute (46) Shoulder sprain Status: Acute (47) Status post chemotherapy Status: Acute (48) Vertigo Status: Acute (49) Anxiety Status: Chronic (50) Iron deficiency anemia Status: Chronic - Assessment and Plan (Free Text) Plan: GI consult with Dr. Sharma CBC CMP twice daily Heme onc with Dr. Heath Home medication reconciliation Hold anticoagulations Continue same
--- NOTE | 2016-10-04 07:39 | CP.PCM.PN ---
<Chas Lomeli - Last Filed: 10/04/16 13:25> Subjective - Date & Time of Evaluation Date of Evaluation: 10/04/16 Time of Evaluation: 07:39 - Subjective Subjective: Medicine Progress Note for Dr. Harris's Service Pt seen and examined at bedside. No acute events overnight as per nursing staff. Patient has not had a bowel movement since yesterday. Patient denies fever, chills, nausea, CP, SOB, vomiting, diarrhea, dizziness, or weakness. Objective - Vital Signs/Intake and Output Vital Signs (last 24 hours): Temp Pulse Resp BP Pulse Ox 97.4 F L 76 20 126/90 97 10/04/16 07:35 10/04/16 07:35 10/04/16 07:35 10/04/16 07:35 10/04/16 07:35 Intake and Output: 10/04/16 10/04/16 06:59 18:59 Intake Total 390 Balance 390 - Medications Medications: Current Medications Clonazepam (Klonopin) 2 mg PO TID [facility] Duloxetine HCl (Cymbalta) 60 mg PO DAILY [facility] Escitalopram Oxalate (Lexapro) 20 mg PO DAILY [facility] Home Med (Solifenacin Succinate [Vesicare]) 5 mg PO HS [facility] Last Admin: 10/03/16 23:17 Dose: Not Given Oxycodone HCl (Oxycodone Immediate Release Tab) 15 mg PO Q3H PRN PRN Reason: Pain, moderate (4-7) Risperidone (Risperdal Tab) 2 mg PO BID [facility] Zolpidem Tartrate (Ambien) 5 mg PO HS [facility] - Labs Labs: PT 12.8 SECONDS (9.7-12.2) H 10/03/16 17:00 INR 1.1 10/03/16 17:00 - Constitutional Appears: No Acute Distress - Head Exam Head Exam: ATRAUMATIC - Eye Exam Eye Exam: Normal appearance (pallor) - ENT Exam ENT Exam: Mucous Membranes Moist (pallor) - Respiratory Exam Respiratory Exam: Clear to Ausculation Bilateral. absent: Wheezes, Respiratory Distress - Cardiovascular Exam Cardiovascular Exam: REGULAR RHYTHM - GI/Abdominal Exam GI & Abdominal Exam: Soft, Tenderness - Neurological Exam Neurological Exam: Alert, Awake, Oriented x3 - Psychiatric Exam Psychiatric exam: Normal Affect, Normal Mood - Skin Skin Exam: Warm Assessment and Plan - Assessment and Plan (Free Text) Plan: Colon cancer with liver metastatsis s/p sigmoid resection Monitor CBC and trend h/h H/H 10/03:11.1/33.3 Pt has not had bloody bm x1 day Oxycodon PRN pain GI consult placed to Dr. Sharma- ana paula appreciated Lower GI bleed: likely Hemorrhoidal, but rule of other DDx -clears for now -NPO after midnight -Dulcolax 10mg + Golytly today -Risks and benefits explained and pt agrees for procedure -monitor CBC daily -Transfuse if hgb < 7, or symptomatic -would recommend adding a daily bowel regiment as pt is on chronic opiods - will start miralax BID after procedure and recommend pt continue as oupt Chronic Constipation -Dulcolax 10mg + Golytly today Bipolar disorder Continue home meds: Cymbalta Lexipro Risperidol Overactive Bladder Continue home med: vesicare or consider clinical sub while at [facility] Insomnia Continue with home medication: Rogelio Case discussed with Dr. Harris. All management as per Dr. Harris. <Rosaura Harris S - Last Filed: 10/28/16 23:30> Objective - Vital Signs/Intake and Output Vital Signs (last 24 hours): Temp Pulse Resp BP Pulse Ox 97.2 F L 83 12 156/85 H 98 10/05/16 10:00 10/05/16 10:30 10/05/16 10:30 10/05/16 10:30 10/05/16 10:30 - Labs Labs: 10/05/16 06:15 10/04/16 06:36 PT 12.8 SECONDS (9.7-12.2) H 10/03/16 17:00 INR 1.1 10/03/16 17:00 Attending/Attestation - Attestation I have personally seen and examined this patient.: Yes I have fully participated in the care of the patient.: Yes I have reviewed all pertinent clinical information, including history, physical exam and plan: Yes Notes (Text): Case seen and discussed with the staff and the resident
[2016-10-04 07:53] LABS: ALKALINE PHOSPHATASE 65 U/L (38-126); ALT/SGPT 28 U/L (9-52); AST/SGOT 21 U/L (14-36); BILIRUBIN,TOTAL 0.4 mg/dL (0.2-1.3); BLOOD UREA NITROGEN 10 mg/dL (7-17); CALCIUM 7.8 mg/dl (8.6-10.4); CARBON DIOXIDE 30 mmol/L (22-30); CHLORIDE 105 mmol/L (98-107); GFR AFRICAN-AMERICAN > 60; GLUCOSE,RANDOM 80 mg/dL (65-105); POTASSIUM 4.1 mmol/L (3.6-5.2); SODIUM 143 mmol/L (132-148); TOTAL PROTEIN 5.6 g/dL (6.3-8.3)
[2016-10-04] MEDS: oxyCODONE 5 mg Immediate Release Tab PO PRN ×2 (09:22→15:36)
--- NOTE | 2016-10-04 10:22 | CP.PCM.CON ---
<Shan Harris - Last Filed: 10/04/16 10:23> History of Present Illness - History of Present Illness History of Present Illness: PGY4 GI Fellow Consult Note Kenya Hsieh is a 45yo female with PMHx significant for colon cancer with metastatic disease to liver ([id number]) currently on chemotherapy, chronic constipation, bipolar disorder, obesity who presents with rectal bleeding. The patient is a very poor historian. She reports x1 BRBPR. She passed a hard BM and noticed bright red blood mixed in with stool. She states that she has had intermittent bleeding for the last few months. Pt also admits to diffuse, cramping abdominal pain but cannot localize pain to one area or clearly state when it began and what exacerbating factors exist. Currently, denies any SOB, nausea, vomiting, weight loss, diarrhea, constipation, melena. She came to [facility] in may for similiar complaint. Pt was told to follow-up as an oupt for colonoscopy. Her last colonscopy was post diag of colon ca and the prep was poor. She was supposed to follow-up in 6 months as outpt but did not. PMHx: See HPI PSHx: Sigmoid resection FHx: Father - unknown malignancy; Mother - RA Social: Former EtOH use, now denies EtOH/tobacco/illicit drug use Endo: Most recent colonoscopy was 07/2014 after her surgical resection - suboptimal prep and requested repeat in 6mo but patient lost to F/U Past Patient History - Infectious Disease Hx of Infectious Diseases: None - Past Medical History & Family History Past Medical History?: Yes - Past Social History Smoking Status: Unknown If Ever Smoked - CARDIAC Hx Cardiac Disorders: No - PULMONARY Hx Respiratory Disorders: Yes Hx Asthma: Yes - NEUROLOGICAL Hx Neurological Disorder: No - HEENT Hx HEENT Problems: No - RENAL Hx Chronic Kidney Disease: No - ENDOCRINE/METABOLIC Hx Endocrine Disorders: No - HEMATOLOGICAL/ONCOLOGICAL Hx Blood Disorders: Yes Hx Anemia: Yes Hx Blood Transfusions: Yes - INTEGUMENTARY Hx Dermatological Problems: No - MUSCULOSKELETAL/RHEUMATOLOGICAL Hx Musculoskeletal Disorders: Yes Hx Arthritis: Yes (osteoarthritis) Hx Falls: No Hx Rheumatoid Arthritis: Yes - GASTROINTESTINAL Hx Gastrointestinal Disorders: Yes Other/Comment: COLON CANCER STAGE 4 WITH CHEMOTHERAPY. R side port a cath - GENITOURINARY/GYNECOLOGICAL Hx Genitourinary Disorders: No - PSYCHIATRIC Hx Psychophysiologic Disorder: Yes Hx Anxiety: Yes Hx Bipolar Disorder: Yes Hx Depression: Yes Hx Substance Use: No - SURGICAL HISTORY Hx Surgeries: Yes (SEE COMMENT) Hx Vascular Access Device: Yes (RIGHT SUBCLAVIAN) Other/Comment: colon cancer surgery april 2014 to remove tumor, rt side subclavian PC - ANESTHESIA Hx Anesthesia: Yes Hx Anesthesia Reactions: No Hx Malignant Hyperthermia: No Has any member of the family had a problem w/ anesthesia?: No Meds Allergies/Adverse Reactions: Allergies Allergy/AdvReac Type Severity Reaction Status Date / Time No Known Allergies Allergy Verified 09/07/16 15:04 - Medications Medications: Current Medications Bisacodyl (Dulcolax) 10 mg PO ONCE ONE Stop: 10/04/16 13:01 Clonazepam (Klonopin) 2 mg PO TID [facility] Last Admin: 10/04/16 09:22 Dose: 2 mg Duloxetine HCl (Cymbalta) 60 mg PO DAILY [facility] Last Admin: 10/04/16 09:23 Dose: 60 mg Escitalopram Oxalate (Lexapro) 20 mg PO DAILY [facility] Last Admin: 10/04/16 09:24 Dose: 20 mg Home Med (Solifenacin Succinate [Vesicare]) 5 mg PO [facility] Oxycodone HCl (Oxycodone Immediate Release Tab) 15 mg PO Q3H PRN PRN Reason: Pain, moderate (4-7) Last Admin: 10/04/16 09:22 Dose: 15 mg Polyethylene Glycol/Electrolytes (Golytely) 4,000 ml PO ONCE ONE Stop: 10/04/16 14:01 Risperidone (Risperdal Tab) 2 mg PO BID [facility] Last Admin: 10/04/16 09:24 Dose: 2 mg Zolpidem Tartrate (Ambien) 5 mg PO [facility] Physical Exam - Constitutional Appears: Well, Non-toxic, No Acute Distress - Head Exam Head Exam: ATRAUMATIC, NORMOCEPHALIC - Eye Exam Eye Exam: Normal appearance - ENT Exam ENT Exam: Mucous Membranes Moist, Normal Exam - Neck Exam Neck exam: Positive for: Normal Inspection - Respiratory Exam Respiratory Exam: Clear to Auscultation Bilateral, NORMAL BREATHING PATTERN. absent: Rales, Rhonchi, Wheezes, Respiratory Distress - Cardiovascular Exam Cardiovascular Exam: REGULAR RHYTHM, RRR, +S1, +S2 - GI/Abdominal Exam GI & Abdominal Exam: Normal Bowel Sounds, Soft. absent: Distended, Guarding, Organomegaly, Rebound, Rigid - Rectal Exam Rectal Exam: Hemorrhoids. absent: Black Stool, Bloody Stool, Fecal Impaction - Neurological Exam Neurological exam: Alert, Oriented x3 - Psychiatric Exam Psychiatric exam: Normal Affect, Normal Mood - Skin Skin Exam: Dry, Intact, Normal Color, Warm Results - Vital Signs Recent Vital Signs: Last Vital Signs Temp 97.4 F L 10/04/16 07:35 Pulse 76 10/04/16 07:35 Resp 20 10/04/16 07:35 BP 126/90 10/04/16 07:35 Pulse Ox 97 10/04/16 07:35 - Labs Result Diagrams: 10/03/16 17:00 10/04/16 06:36 Labs: Laboratory Results - last 24 hr 10/04/16 06:36 Sodium 143 Potassium 4.1 Chloride 105 Carbon Dioxide 30 Anion Gap 12 BUN 10 Creatinine 0.8 Est GFR ( Amer) > 60 Est GFR (Non-Af Amer) > 60 Random Glucose 80 Calcium 7.8 L Total Bilirubin 0.4 AST 21 ALT 28 Alkaline Phosphatase 65 Total Protein 5.6 L Albumin 2.7 L D Globulin 2.8 Albumin/Globulin Ratio 1.0 Assessment & Plan - Assessment and Plan (Free Text) Assessment: This is a 45F w/ hx of met colon ca s/p sigmoid resection and currently on chemo who presents to the ED with complaints of BRBPR. DDx: hemorrhoids vs malignancy vs ulcer vs AVM. Lower GI bleed: likely Hemorrhoidal, but rule of other DDx as above Hx of Met Colon Ca, s/p sigmoid resection and currently on chemo Hx of constipation Plan: -clears for now -NPO after midnight -Dulcolax 10mg + Golytly today -Risks and benefits explained and pt agrees for procedure -monitor CBC daily -Transfuse if hgb < 7, or symptomatic -would recommend adding a daily bowel regiment as pt is on chronic opiods - will start miralax BID after procedure and recommend pt continue as oupt d.w Dr. Sharma and agrees with the above <Manolo Sharma Y - Last Filed: 10/04/16 16:47> Meds - Medications Medications: Current Medications Clonazepam (Klonopin) 2 mg PO TID [facility] Last Admin: 08/10/17 14:08 Dose: 2 mg Duloxetine HCl (Cymbalta) 60 mg PO DAILY [facility] Last Admin: 10/04/16 09:23 Dose: 60 mg Escitalopram Oxalate (Lexapro) 20 mg PO DAILY [facility] Last Admin: 10/04/16 09:24 Dose: 20 mg Oxycodone HCl (Oxycodone Immediate Release Tab) 15 mg PO Q3H PRN PRN Reason: Pain, moderate (4-7) Last Admin: 10/04/16 15:36 Dose: 15 mg Risperidone (Risperdal Tab) 2 mg PO BID [facility] Last Admin: 10/04/16 09:24 Dose: 2 mg Tolterodine Tartrate (Detrol La) 4 mg PO HS [facility] Zolpidem Tartrate (Ambien) 5 mg PO HS [facility] Results - Vital Signs Recent Vital Signs: Last Vital Signs Temp 97.4 F L 10/04/16 07:35 Pulse 76 10/04/16 07:35 Resp 20 10/04/16 07:35 BP 126/90 10/04/16 07:35 Pulse Ox 97 10/04/16 07:35 - Labs Result Diagrams: 10/03/16 17:00 10/04/16 06:36 Labs: Laboratory Results - last 24 hr 10/04/16 06:36 Sodium 143 Potassium 4.1 Chloride 105 Carbon Dioxide 30 Anion Gap 12 BUN 10 Creatinine 0.8 Est GFR ( Amer) > 60 Est GFR (Non-Af Amer) > 60 Random Glucose 80 Calcium 7.8 L Total Bilirubin 0.4 AST 21 ALT 28 Alkaline Phosphatase 65 Total Protein 5.6 L Albumin 2.7 L D Globulin 2.8 Albumin/Globulin Ratio 1.0 Attending/Attestation - Attestation I have personally seen and examined this patient.: Yes I have fully participated in the care of the patient.: Yes I have reviewed all pertinent clinical information: Yes Notes (Text): 10/04/16 16:36 I have seen and examined patient with GI fellow. Agree with above documentation with the following additions. In brief, this is a 45 year old female with history of colon cancer with metastatic disease to liver on chemotherapy (regimen unknown), obesity, bipolar disorder who presents to hospital with complaint of rectal bleeding. She describes passing hard stool yesterday and noting blood streak in bowel movement. She admits to recent constipation with similar prior episodes "a few times" over the past 4 months. She denies abdominal pain, nausea, vomiting, fever/chills, weight loss (she has gained weight recently). She was supposed to follow up as outpatient for repeat colonoscopy post operatively for surveillance but she did not follow through. Obesity Bipolar disorder History of colon cancer s/p partial colon resection with liver metastatic disease on chemotherapy - H/H stable, continue to monitor - Oncology consultation with Dr. Heath requested by medical team, follow up recommendations - Given intermittent rectal bleeding with prior history of colon cancer, will plan for colonoscopy evaluation due to lack of proper outpatient follow up in order to rule out tumor recurrence or synchronous lesions. Golytely bowel preparation today, NPO after midnight. - Further recommendations will be provided following completion of endoscopic evaluation - Case discussed with Dr. Harris
[2016-10-04] MEDS ORDERED: Bisacodyl 5mg EC Tab PO ONE (13:00)
[2016-10-04] MEDS ORDERED: Peg-Electrolyte Oral Soln 4L (Golytely) PO ONE (14:00)
[2016-10-04] MEDS ORDERED: Iohexol 240 (50 ml) PO ONE (15:45)
--- NOTE | 2016-10-04 16:11 | CP.PCM.PN ---
Subjective - Date & Time of Evaluation Date of Evaluation: 10/04/16 Time of Evaluation: 08:40 - Subjective Subjective: clinically same Objective - Vital Signs/Intake and Output Vital Signs (last 24 hours): Temp Pulse Resp BP Pulse Ox 97.4 F L 76 20 126/90 97 10/04/16 07:35 10/04/16 07:35 10/04/16 07:35 10/04/16 07:35 10/04/16 07:35 Intake and Output: 10/04/16 10/04/16 06:59 18:59 Intake Total 390 Balance 390 - Medications Medications: Current Medications Clonazepam (Klonopin) 2 mg PO TID [facility] Last Admin: 10/04/16 14:08 Dose: 2 mg Duloxetine HCl (Cymbalta) 60 mg PO DAILY [facility] Last Admin: 10/04/16 09:23 Dose: 60 mg Escitalopram Oxalate (Lexapro) 20 mg PO DAILY [facility] Last Admin: 10/04/16 09:24 Dose: 20 mg Oxycodone HCl (Oxycodone Immediate Release Tab) 15 mg PO Q3H PRN PRN Reason: Pain, moderate (4-7) Last Admin: 10/04/16 15:36 Dose: 15 mg Risperidone (Risperdal Tab) 2 mg PO BID [facility] Last Admin: 10/04/16 09:24 Dose: 2 mg Tolterodine Tartrate (Detrol La) 4 mg PO HS [facility] Zolpidem Tartrate (Ambien) 5 mg PO HS [facility] - Labs Labs: 10/04/16 06:36 PT 12.8 SECONDS (9.7-12.2) H 10/03/16 17:00 INR 1.1 10/03/16 17:00 - Constitutional Appears: Well - Head Exam Head Exam: ATRAUMATIC, NORMAL INSPECTION, NORMOCEPHALIC - Eye Exam Eye Exam: EOMI, Normal appearance, PERRL Pupil Exam: NORMAL ACCOMODATION, PERRL - ENT Exam ENT Exam: Mucous Membranes Moist, Normal Exam - Neck Exam Neck Exam: Full ROM, Normal Inspection. absent: Lymphadenopathy - Respiratory Exam Respiratory Exam: Decreased Breath Sounds - Cardiovascular Exam Cardiovascular Exam: REGULAR RHYTHM, +S1, +S2 - GI/Abdominal Exam GI & Abdominal Exam: Soft, Diminished Bowel Sounds - Rectal Exam Rectal Exam: Deferred
[2016-10-04] MEDS ORDERED: Iohexol 350mg/ml 100 ML ONE (16:21)
--- NOTE | 2016-10-04 19:42 | CT ---
EXAM: CT Abdomen and Pelvis With Intravenous Contrast CLINICAL HISTORY: 45 years old, female; Condition or disease; Cancer; Intestine, large; Lung condition and disease; Other: R/O metastasis; Additional info: Cancer evaluation on chemotherapy TECHNIQUE: Axial computed tomography images of the abdomen and pelvis with intravenous contrast. All CT scans at this facility use one or more dose reduction techniques, viz.: automated exposure control; ma/kV adjustment per patient size (including targeted exams where dose is matched to indication; i.e. head); or iterative reconstruction technique. Coronal and sagittal reformatted images were created and reviewed. CONTRAST: 100 mL of omnipaque 350 administered intravenously. COMPARISON: No relevant prior studies available. FINDINGS: Lower thorax: No acute findings. ABDOMEN: Liver: There is dilatation of the intrahepatic ducts in the left lobe of the liver. The main portal vein diameter is increased at 2.1 cm. there are at least 2 subcentimeter low density lesions in the left lobe of the liver which could be related to be intrahepatic ductal dilatation. Parenchymal lesions however should also be considered. These were not present previously. Gallbladder and bile ducts: No gallstones. See above. Pancreas: Unremarkable. No mass. No ductal dilation. Spleen: Spleen is enlarged measuring 18 cm in craniocaudal span. Adrenals: Unremarkable. No mass. Kidneys and ureters: Unremarkable. No solid mass. No hydronephrosis. Stomach and bowel: Suture line is noted at the level the rectosigmoid colon. No obstruction. Appendix: Unremarkable Bladder: Unremarkable. No mass. Reproductive: Unremarkable as visualized. ABDOMEN and PELVIS: Intraperitoneal space: Unremarkable. No free air. No significant fluid collection. Bones/joints: Degenerative changes are noted predominantly in the facet joints of the lumbar spine No acute fracture. No dislocation. Soft tissues: Mild hazy changes noted within the fat at the root of the mesentery. Vasculature: See above. Lymph nodes: Unremarkable. No enlarged lymph nodes. IMPRESSION: 1. Splenomegaly. 2. Postoperative changes in the rectosigmoid colon. 3. Dilatation of the intrahepatic ducts in the left lobe of the liver with subcentimeter low density lesions in the left lobe. The lesions could be pseudo-lesions and related to the ducts. Focal parenchymal nodules/neoplasm is another consideration. MRI might be helpful. EXAM CT Chest With Intravenous Contrast CLINICAL HISTORY: 45 years old, female; Condition or disease; Cancer; Intestine, large; Lung condition and disease; Other: R/O metastasis; Additional info: Cancer evaluation on chemotherapy TECHNIQUE: Axial computed tomography images of the chest with intravenous contrast. All CT scans at this facility use one or more dose reduction techniques, viz.: automated exposure control; ma/kV adjustment per patient size (including targeted exams where dose is matched to indication; i.e. head); or iterative reconstruction technique. Coronal and sagittal reformatted images were created and reviewed. CONTRAST: 100 mL of omnipaque 350 administered intravenously. EXAM DATE/TIME: Exam ordered 10/04/2016 8:00 AM COMPARISON: CT - CHEST,ABD,PEL W/IV PO CONTRAST 03/04/2015 1:21:44 PM FINDINGS: Lungs: This is a 5 mm nodule is noted in the posterior segment of the right upper lobe (series 4 image 33. This was not present on a previous study of 03/04/2015. Pleural space: Unremarkable. No pneumothorax. No significant effusion. Heart: Unremarkable. No cardiomegaly. No significant pericardial effusion. Bones/joints: Unremarkable. No acute fracture. No dislocation. Soft tissues: Unremarkable. Vasculature: The tip of a right subclavian line is positioned in the superior vena cava. No thoracic aortic aneurysm. Lymph nodes: Unremarkable. No enlarged lymph nodes. Liver: . There is dilatation of the intrahepatic ducts in the left lobe of the liver. IMPRESSION: Right upper lobe pulmonary nodule not present on the previous exam of 03/04/2015. For high-risk patients (smoking history or other known risk factors) recommend follow-up chest CT at 12-18 months. If unchanged, no further follow-up..
[2016-10-04] MEDS ORDERED: Tolterodine 4 mg ER Cap PO SCH (22:00)
--- NOTE | 2016-10-05 05:12 | CP.PCM.CON ---
History of Present Illness - History of Present Illness History of Present Illness: Ms. Hsieh is a 45 year old female with history of depression, and stage IV colon cancer with liver metastasis dx in 05/2014, admitted with hematochezia. She had been on systemic chemotherapy with FOLFOX + Avastin, but this has been on hold for persistant pancytopenia. She has been on single agent Avastin for her cancer treatment. Her pancytopenia was felt to be possibly related to alcohol and possible liver disease. She note to straining with bowel movement and saw blood in the toilet bowl. Past medical history: depression, anemia. Past surgical history: Knee surgery, portacatheter placement and removal Family history: Denies hematologic and oncologic problems Social history: Denies tobacco, alcohol, and illicit drug use. Allergies: NKA Review of systems: All remaining review of systems including HEENT, cardiovascular, respiratory, gastrointestinal, genitourinary, musculoskeletal, dermatologic, psychiatric, neurologic are negative unless mentioned in the history of present illness. Past Patient History - Infectious Disease Hx of Infectious Diseases: None - Past Medical History & Family History Past Medical History?: Yes - Past Social History Smoking Status: Unknown If Ever Smoked - CARDIAC Hx Cardiac Disorders: No - PULMONARY Hx Respiratory Disorders: Yes Hx Asthma: Yes - NEUROLOGICAL Hx Neurological Disorder: No - HEENT Hx HEENT Problems: No - RENAL Hx Chronic Kidney Disease: No - ENDOCRINE/METABOLIC Hx Endocrine Disorders: No - HEMATOLOGICAL/ONCOLOGICAL Hx Blood Disorders: Yes Hx Anemia: Yes Hx Blood Transfusions: Yes - INTEGUMENTARY Hx Dermatological Problems: No - MUSCULOSKELETAL/RHEUMATOLOGICAL Hx Musculoskeletal Disorders: Yes Hx Arthritis: Yes (osteoarthritis) Hx Falls: No Hx Rheumatoid Arthritis: Yes - GASTROINTESTINAL Hx Gastrointestinal Disorders: Yes Other/Comment: COLON CANCER STAGE 4 WITH CHEMOTHERAPY. R side port a cath - GENITOURINARY/GYNECOLOGICAL Hx Genitourinary Disorders: No - PSYCHIATRIC Hx Psychophysiologic Disorder: Yes Hx Anxiety: Yes Hx Bipolar Disorder: Yes Hx Depression: Yes Hx Substance Use: No - SURGICAL HISTORY Hx Surgeries: Yes (SEE COMMENT) Hx Vascular Access Device: Yes (RIGHT SUBCLAVIAN) Other/Comment: colon cancer surgery april 2014 to remove tumor, rt side subclavian PC - ANESTHESIA Hx Anesthesia: Yes Hx Anesthesia Reactions: No Hx Malignant Hyperthermia: No Has any member of the family had a problem w/ anesthesia?: No Meds Allergies/Adverse Reactions: Allergies Allergy/AdvReac Type Severity Reaction Status Date / Time No Known Allergies Allergy Verified 09/07/16 15:04 - Medications Medications: Current Medications Clonazepam (Klonopin) 2 mg PO TID [facility] Last Admin: 10/04/16 18:26 Dose: 2 mg Duloxetine HCl (Cymbalta) 60 mg PO DAILY [facility] Last Admin: 10/04/16 09:23 Dose: 60 mg Escitalopram Oxalate (Lexapro) 20 mg PO DAILY [facility] Last Admin: 10/04/16 09:24 Dose: 20 mg Oxycodone HCl (Oxycodone Immediate Release Tab) 15 mg PO Q3H PRN PRN Reason: Pain, moderate (4-7) Last Admin: 10/04/16 15:36 Dose: 15 mg Risperidone (Risperdal Tab) 2 mg PO BID [facility] Last Admin: 10/04/16 18:28 Dose: 2 mg Tolterodine Tartrate (Detrol La) 4 mg PO [facility] Last Admin: 10/04/16 22:24 Dose: 4 mg Zolpidem Tartrate (Ambien) 5 mg PO [facility] Last Admin: 10/04/16 22:32 Dose: 5 mg Physical Exam - Head Exam Head Exam: ATRAUMATIC - Eye Exam Eye Exam: Normal appearance - ENT Exam ENT Exam: Mucous Membranes Dry - Respiratory Exam Respiratory Exam: NORMAL BREATHING PATTERN - Cardiovascular Exam Cardiovascular Exam: +S1, +S2 - GI/Abdominal Exam GI & Abdominal Exam: Normal Bowel Sounds - Extremities Exam Extremities exam: Positive for: normal inspection - Neurological Exam Neurological exam: Oriented x3 - Psychiatric Exam Psychiatric exam: Normal Affect, Normal Mood - Skin Skin Exam: Warm Results - Vital Signs Recent Vital Signs: Last Vital Signs Temp 98.1 F 10/05/16 01:00 Pulse 82 10/05/16 01:00 Resp 20 10/05/16 01:00 BP 128/84 10/05/16 01:00 Pulse Ox 98 10/05/16 01:00 - Labs Result Diagrams: 10/03/16 17:00 10/04/16 06:36 Labs: Laboratory Results - last 24 hr 10/04/16 10/04/16 06:36 16:37 Sodium 143 Potassium 4.1 Chloride 105 Carbon Dioxide 30 Anion Gap 12 BUN 10 Creatinine 0.8 Est GFR ( Amer) > 60 Est GFR (Non-Af Amer) > 60 Random Glucose 80 Calcium 7.8 L Total Bilirubin 0.4 AST 21 ALT 28 Alkaline Phosphatase 65 Total Protein 5.6 L Albumin 2.7 L D Globulin 2.8 Albumin/Globulin Ratio 1.0 Urine HCG, Qual Negative Assessment & Plan (1) Rectal bleeding Assessment and Plan: GI evaluation Status: Acute (2) Pancytopenia Assessment and Plan: ?related to psych meds ?alcohol chemo has been on hold Status: Acute (3) Colon cancer metastasized to liver Assessment and Plan: on single agent avastin repeat imaging to evaluate disease burden Thank you for this interesting consult. Status: Acute
[2016-10-05 06:25] LABS: BASO % 0.3 % (0.0-2.0); EOS % 0.3 % (0.0-4.0); HEMATOCRIT 32.1 % (34.0-47.0); LYMPH # 0.7 K/uL (1.0-4.3); LYMPH % 25.8 % (20.0-40.0); MEAN CELL VOLUME 79.3 fL (81.0-99.0); MEAN CORPUSCULAR HEMOGLOBIN 26.4 pg (27.0-31.0); MEAN CORPUSCULAR HGB CONC 33.4 g/dL (33.0-37.0); MEAN PLATELET VOLUME 7.7 fL (7.2-11.7); MONO # 0.2 K/uL (0.0-0.8); MONO % 6.7 % (0.0-10.0); NRBC % 0.4 % (0.0-2.0); RED CELL DISTRIBUTION WIDTH 19.5 % (11.5-14.5); WHITE BLOOD COUNT 2.7 K/uL (4.8-10.8)
[2016-10-05] MEDS ORDERED: Propofol 10 mg/ml Inj (20 ML) ONE ×2 (09:38)
--- NOTE | 2016-10-05 09:59 | CP.PCM.PN ---
Subjective - Date & Time of Evaluation Date of Evaluation: 10/05/16 Time of Evaluation: 08:40 - Subjective Subjective: clinically same s/p dr figueroa and dr ugerrero for colonoscopy today Objective - Vital Signs/Intake and Output Vital Signs (last 24 hours): Temp Pulse Resp BP Pulse Ox 97.8 F 84 20 130/90 99 10/05/16 09:38 10/05/16 09:38 10/05/16 09:38 10/05/16 09:38 10/05/16 09:38 Intake and Output: 10/05/16 10/05/16 06:59 18:59 Intake Total 800 100 Balance 800 100 - Medications Medications: Current Medications Clonazepam (Klonopin) 2 mg PO TID [facility] Last Admin: 10/04/16 18:26 Dose: 2 mg Duloxetine HCl (Cymbalta) 60 mg PO DAILY [facility] Last Admin: 10/04/16 09:23 Dose: 60 mg Escitalopram Oxalate (Lexapro) 20 mg PO DAILY [facility] Last Admin: 10/04/16 09:24 Dose: 20 mg Oxycodone HCl (Oxycodone Immediate Release Tab) 15 mg PO Q3H PRN PRN Reason: Pain, moderate (4-7) Last Admin: 10/04/16 15:36 Dose: 15 mg Risperidone (Risperdal Tab) 2 mg PO BID [facility] Last Admin: 10/04/16 18:28 Dose: 2 mg Tolterodine Tartrate (Detrol La) 4 mg PO [facility] Last Admin: 10/04/16 22:24 Dose: 4 mg Zolpidem Tartrate (Ambien) 5 mg PO [facility] Last Admin: 10/04/16 22:32 Dose: 5 mg - Labs Labs: 10/05/16 06:15 10/04/16 06:36 PT 12.8 SECONDS (9.7-12.2) H 10/03/16 17:00 INR 1.1 10/03/16 17:00 - Constitutional Appears: Well - Head Exam Head Exam: ATRAUMATIC, NORMAL INSPECTION, NORMOCEPHALIC - Eye Exam Eye Exam: EOMI, Normal appearance, PERRL Pupil Exam: NORMAL ACCOMODATION, PERRL - ENT Exam ENT Exam: Mucous Membranes Moist, Normal Exam - Neck Exam Neck Exam: Full ROM, Normal Inspection. absent: Lymphadenopathy - Respiratory Exam Respiratory Exam: Decreased Breath Sounds - Cardiovascular Exam Cardiovascular Exam: REGULAR RHYTHM, +S1, +S2 - GI/Abdominal Exam GI & Abdominal Exam: Soft, Diminished Bowel Sounds - Rectal Exam Rectal Exam: Deferred
[2016-10-05 10:12] VITALS: TEMP 97.2
[2016-10-05 10:28] VITALS: O2SAT 98
[2016-10-05 10:39] VITALS: BP 156/85; PULSE 83; RESP 12
--- NOTE | 2016-10-05 10:43 | CP.PCM.PN ---
Subjective - Date & Time of Evaluation Date of Evaluation: 10/05/16 Time of Evaluation: 09:20 - Subjective Subjective: Medicine Note- Dr. Harris's service Patient was seen and examined at bedside. Patient has no acute complaints at this time. Patient is aware she is scheduled for colonoscopy today. No events overnight, per nursing. Objective - Vital Signs/Intake and Output Vital Signs (last 24 hours): Temp Pulse Resp BP Pulse Ox 97.2 F L 75 16 133/80 98 10/05/16 10:00 10/05/16 10:15 10/05/16 10:15 10/05/16 10:15 10/05/16 10:15 Intake and Output: 10/05/16 10/05/16 06:59 18:59 Intake Total 800 100 Balance 800 100 - Medications Medications: Current Medications Clonazepam (Klonopin) 2 mg PO TID [facility] Last Admin: 10/04/16 18:26 Dose: 2 mg Duloxetine HCl (Cymbalta) 60 mg PO DAILY [facility] Last Admin: 10/04/16 09:23 Dose: 60 mg Escitalopram Oxalate (Lexapro) 20 mg PO DAILY [facility] Last Admin: 10/04/16 09:24 Dose: 20 mg Oxycodone HCl (Oxycodone Immediate Release Tab) 15 mg PO Q3H PRN PRN Reason: Pain, moderate (4-7) Last Admin: 10/04/16 15:36 Dose: 15 mg Risperidone (Risperdal Tab) 2 mg PO BID [facility] Last Admin: 10/04/16 18:28 Dose: 2 mg Tolterodine Tartrate (Detrol La) 4 mg PO [facility] Last Admin: 10/04/16 22:24 Dose: 4 mg Zolpidem Tartrate (Ambien) 5 mg PO [facility] Last Admin: 10/04/16 22:32 Dose: 5 mg - Labs Labs: 10/05/16 06:15 10/04/16 06:36 PT 12.8 SECONDS (9.7-12.2) H 10/03/16 17:00 INR 1.1 10/03/16 17:00 - Constitutional Appears: Non-toxic, No Acute Distress - Head Exam Head Exam: ATRAUMATIC, NORMAL INSPECTION, NORMOCEPHALIC - Eye Exam Pupil Exam: NORMAL ACCOMODATION, PERRL - ENT Exam ENT Exam: Mucous Membranes Moist - Respiratory Exam Respiratory Exam: Clear to Ausculation Bilateral, NORMAL BREATHING PATTERN. absent: Prolonged Expiratory Phase, Rales, Rhonchi, Wheezes - Cardiovascular Exam Cardiovascular Exam: REGULAR RHYTHM, +S1, +S2 - GI/Abdominal Exam GI & Abdominal Exam: Soft, Normal Bowel Sounds. absent: Tenderness, Diminished Bowel Sounds, Hyperactive Bowel Sounds, Hypoactive Bowel Sounds - Extremities Exam Extremities Exam: Normal Capillary Refill, Normal Inspection - Neurological Exam Neurological Exam: Alert, Awake, Oriented x3 - Psychiatric Exam Psychiatric exam: Normal Affect, Normal Mood - Skin Skin Exam: Dry, Intact, Normal Color, Warm Assessment and Plan - Assessment and Plan (Free Text) Assessment: Colon cancer with liver metastatsis s/p sigmoid resection Monitor CBC and trend h/h H/H 10.7/32.[address] Chest abdomen Pelvis with IV and PO Contrast- 10/04/16- Splenomegaly. Post op changes in rectosigmoid colon. Dilatation of the intrahepatic ducts in the left lobe of the liver with subcentimeter low density lesions in the left lobe right upper lobe pulmonary nodule not present on previous exam of 03/04/15. Recommend Chest CT at 12-18 months. If unchanged, no further followup. GI consult placed to Dr. Ernie goss appreciated Lower GI bleed: likely Hemorrhoidal, but rule of other DDx -monitor CBC daily -Transfuse if hgb < 7, or symptomatic -would recommend adding a daily bowel regiment as pt is on chronic opiods - Started Miralax 17gm PO BID Colonoscopy- 10/05/16- Diverticulosis in sigmoid colon. Internal hemorrhoids. Repeat in 1 year due to poor prep. Right upper lobe pulmonary nodule CT Chest abdomen Pelvis with IV and PO Contrast- right upper lobe pulmonary nodule not present on previous exam of 03/04/15. Recommend Chest CT at 12-18 months. If unchanged, no further followup. Chronic Constipation -Miralax 17gm PO BID Bipolar disorder Continue home meds: Cymbalta Lexipro Risperidol Overactive Bladder Continue home med: vesicare or consider clinical sub while at [facility] Insomnia Continue with home medication: Ambien Case discussed with Dr. Harris. All management as per Dr. Harris. Patient will be discharged home, as per Dr. Harris.
[2016-10-05] MEDS ORDERED: POLYETHYLENE GLYCOL 3350 17 GM/Dose PACKET PO SCH (18:00)
== END 2016-10-05 14:56 | disposition home or self-care (01) ==
LOC: C.ER 15:27 → C.9E 18:29 → C.3T 23:40
PROVIDERS: ADMIT Internal Medicine Nephrology; ATTEND Internal Medicine Nephrology
DX: K57.30 Diverticulosis of large intestine without perforation or abscess without bleeding (principal); K64.8 Other hemorrhoids; D61.818 Other pancytopenia; K92.2 Gastrointestinal hemorrhage, unspecified; C78.7 Secondary malignant neoplasm of liver and intrahepatic bile duct; Z85.038 Personal history of other malignant neoplasm of large intestine; Z98.0 Intestinal bypass and anastomosis status; K59.09 Other constipation; F31.9 Bipolar disorder, unspecified; J45.909 Unspecified asthma, uncomplicated; E66.9 Obesity, unspecified; N32.81 Overactive bladder; G47.00 Insomnia, unspecified; R91.1 Solitary pulmonary nodule

== ENCOUNTER 2016-11-08 13:59 | Emergency (ER) | payer MEDICARE ==
[2016-11-08 13:59] VITALS: BMI 34.4
[2016-11-08 14:05] VITALS: BP 135/83; PULSE 97; RESP 18; TEMP 97.4; O2SAT 97
--- NOTE | 2016-11-08 14:43 | C.PDOC ---
History Of Present Illness Patient complains of pain to left knee states she twisted knee getting out of bed. Denies any other injury Time Seen by Provider: 11/08/16 14:22 History Per: Patient History/Exam Limitations: no limitations Onset/Duration Of Symptoms: Days Current Symptoms Are (Timing): Still Present Severity: Moderate Recent travel outside of the [place]: No Past Medical History Reviewed: Historical Data, Nursing Documentation, Vital Signs Vital Signs: Last Vital Signs Temp 97.4 F L 11/08/16 14:00 Pulse 97 H 11/08/16 14:00 Resp 18 11/08/16 14:00 BP 135/83 11/08/16 14:00 Pulse Ox 97 11/08/16 15:21 - Medical History PMH: Anemia, Anxiety, Arthritis (osteoarthritis), Asthma, Back Problems, Bipolar Disorder, Depression, Malignancy (Colon), Rheumatoid Arthritis - [facility] Procedures CLOSED ENDOSCOPIC BIOPSY OF LARGE INTESTINE (05/23/14) COLONOSCOPY (08/12/14) DX ULTRASOUND-ABDOMEN (05/23/14) INSERTION OF TOTALLY IMPLANTABLE VASC ACCESS DEVIC (05/23/14) LAPAROSCOP LYSIS-PERITONEAL ADHES (05/23/14) LAPAROSCOPIC SIGMOIDECTOMY (05/23/14) OTHER ENDOSCOPY OF SM INTEST (05/23/14) PACKED CELL TRANSFUSION (05/23/14) PERCUTAN NEEDLE BX OF LIVER (05/23/14) REMOVAL OF VAD FROM TRUNK SUBCU/FASCIA, PERC APPROACH (03/16/15) Family History: States: No Known Family Hx - Social History Hx Tobacco Use: No Hx Alcohol Use: No Hx Substance Use: No - Immunization History Hx Tetanus Toxoid Vaccination: Yes Hx Influenza Vaccination: Yes (2015) Hx Pneumococcal Vaccination: Yes Review Of Systems Except As Marked, All Systems Reviewed And Found Negative. Musculoskeletal: Positive for: Other (Left knee pain.). Negative for: Back Pain , Leg Pain, Foot Pain Neurological: Negative for: Weakness, Numbness Physical Exam - Physical Exam Appears: Non-toxic, No Acute Distress, Other (Morbid obese.) Skin: Warm, Dry, No Rash Head: Atraumatic, Normacephalic Eye(s): bilateral: Normal Inspection Oral Mucosa: Moist Neck: Normal ROM Chest: Symmetrical Extremity: Normal ROM, Tenderness (Left knee, tenderness to the anterior aspect) , No Calf Tenderness, Capillary Refill (<2 sec), No Swelling Pulses: Left Dorsalis Pedis: Normal, Right Dorsalis Pedis: Normal Neurological/Psych: Oriented x3, Normal Speech Gait: Steady ED Course And Treatment O2 Sat by Pulse Oximetry: 97 (RA) Pulse Ox Interpretation: Normal - Other Rad X-Ray - Left Knee X-Ray: Viewed By Me, Read By Radiologist Interpretation: PROCEDURE: Left Knee Radiographs. HISTORY: Pain. COMPARISON : 09/07/2016. FINDINGS: BONES: . No fracture. JOINTS: Tricompartmental joint space narrowing, medial and lateral knee joint line spurring -moderate osteoarthrosis. Tibial fibular hypertrophic arthrosis also suggested. JOINT EFFUSION: None. OTHER FINDINGS: None. IMPRESSION: Tricompartmental moderate osteoarthrosis Medical Decision Making Medical Decision Making: Impression: chronic knee pain, left knee injury today Prior records reviewed: 09/07/16 for knee pain, xrays showed osteoarthritis, treated with Toradol and discharged Plan: * xray left knee * Toradol * Ice pack Progress and dispo: Xray viewed by me and radiology report reviewed. Xray shows Tricompartmental moderate osteoarthrosis Patient reevaluated and reports pain mildly improving. Patient is ambulatory with minimal discomfort. Advise rest, ice elevation and analgesics as needed Patient to be discharged and follow up with orthopedic Disposition Counseled Patient/Family Regarding: Need For Followup - Disposition Referrals: Shaik Saxena MD [Primary Care Provider] - Disposition: HOME/ ROUTINE Disposition Time: 15:11 Condition: GOOD Additional Instructions: Xray show arthritis. Please follow up with orthpedic in timely manner for further evaluation Instructions: Knee Pain (ED) Forms: [employer] (Malay) - POA Present On Arrival: Falls Or Trauma - Clinical Impression Clinical Impression: Arthralgia of knee, left - PA / BENEFITS SPECIALIST / Resident Statement MD/DO has reviewed & agrees with the documentation as recorded. - Scribe Statement The provider has reviewed the documentation as recorded by the Scribe Gabby Carlson All medical record entries made by the Scribe were at my direction and personally dictated by me. I have reviewed the chart and agree that the record accurately reflects my personal performance of the history, physical exam, medical decision making, and the department course for this patient. I have also personally directed, reviewed, and agree with the discharge instructions and disposition.
--- NOTE | 2016-11-08 15:03 | RAD ---
PROCEDURE: Left Knee Radiographs. HISTORY: Pain. COMPARISON: 09/07/2016 FINDINGS: BONES: . No fracture. JOINTS: Tricompartmental joint space narrowing, medial and lateral knee joint line spurring -moderate osteoarthrosis. Tibial fibular hypertrophic arthrosis also suggested JOINT EFFUSION: None. OTHER FINDINGS: None. IMPRESSION: Tricompartmental moderate osteoarthrosis
== END 2016-11-08 16:09 | disposition home or self-care (01) ==
LOC: C.ER 13:59 → SUPCPDRO 13:59 → C.ER 16:09
DX: M25.562 Pain in left knee (principal)
CPT/HCPCS: 73562; 96372; 99283; J1885

== ENCOUNTER 2016-11-10 18:38 | Emergency (ER) | payer MEDICARE ==
[2016-11-10 18:39] VITALS: BMI 34.4
[2016-11-10] MEDS ORDERED: Bacitracin 500 Units/gm Oint Foilpak UD ONE (19:37)
[2016-11-10 19:42] VITALS: BP 131/84; PULSE 87; RESP 16; TEMP 98.2; O2SAT 98
--- NOTE | 2016-11-10 19:48 | C.PDOC ---
History Of Present Illness Pt presents to ER c/o of pain to bilateral knees s/p fall. Pt states knee pain has subsided now and ambulated with no discomfort. Also c/o of painful ulcer to left side of abdomen noted x 2 days ago, but denies draining, fever. Pt is UTD with tetanus Time Seen by Provider: 11/10/16 19:24 Chief Complaint (Nursing): Lower Extremity Problem/Injury History/Exam Limitations: no limitations Severity: Mild - Knee Description Of Injury: Fell Past Medical History Vital Signs: Last Vital Signs Temp 98.2 F 11/10/16 19:41 Pulse 87 11/10/16 19:41 Resp 16 11/10/16 19:41 BP 131/84 11/10/16 19:41 Pulse Ox 98 11/10/16 20:01 - Medical History PMH: Anemia, Anxiety, Arthritis (osteoarthritis), Asthma, Back Problems, Bipolar Disorder, Depression, HTN, Malignancy (Colon), Rheumatoid Arthritis, Schizophrenia Denies: Chronic Kidney Disease - [facility] Procedures CLOSED ENDOSCOPIC BIOPSY OF LARGE INTESTINE (05/23/14) COLONOSCOPY (08/12/14) DX ULTRASOUND-ABDOMEN (05/23/14) INSERTION OF TOTALLY IMPLANTABLE VASC ACCESS DEVIC (05/23/14) LAPAROSCOP LYSIS-PERITONEAL ADHES (05/23/14) LAPAROSCOPIC SIGMOIDECTOMY (05/23/14) OTHER ENDOSCOPY OF SM INTEST (05/23/14) PACKED CELL TRANSFUSION (05/23/14) PERCUTAN NEEDLE BX OF LIVER (05/23/14) REMOVAL OF VAD FROM TRUNK SUBCU/FASCIA, PERC APPROACH (03/16/15) Family History: States: Unknown Family Hx - Social History Hx Tobacco Use: No Hx Alcohol Use: No Hx Substance Use: No - Immunization History Hx Tetanus Toxoid Vaccination: Yes Hx Influenza Vaccination: Yes (2015) Hx Pneumococcal Vaccination: Yes Review Of Systems Constitutional: Negative for: Fever Skin: Positive for: Rash, Other (wound, abdomen) Neurological: Negative for: Weakness, Numbness Physical Exam - Physical Exam Appears: Well, Non-toxic Skin: Other (6 x 5 cm area of localized erythema to left mid abdominal wall with small non fluctuant, indurated ulcer at center, non draining) Head: Atraumatic Eye(s): bilateral: Normal Inspection Oral Mucosa: Moist Throat: Normal Gastrointestinal/Abdominal: Normal Exam, Soft, No Tenderness Extremity: Normal ROM, No Tenderness (knees), No Deformity, No Swelling Extremity: Bilateral: Atraumatic Neurological/Psych: Oriented x3, Normal Motor, Normal Sensation Gait: Steady ED Course And Treatment O2 Sat by Pulse Oximetry: 98 Progress Note: Wound was clean with saline and betadine and bacitracin oint applied, then dressed by CP. keflex Po and motrin ordered and pt d/c on PO abx with wound care instructions. Advised wound check in 2 days with PMD. Pt understands follow up and return precautions. Disposition Counseled Patient/Family Regarding: Diagnosis, Need For Followup, Rx Given - Disposition Referrals: Shaik Saxena MD [Staff Provider] - Disposition: HOME/ ROUTINE Disposition Time: 19:48 Condition: STABLE Additional Instructions: Please follow up with PMD in 2 days for wound check Clean wound as instructed Aply bacitracin ointment Do not wear clothing that would irritate the wound Return to ER if increasing pain, swelling or worse Prescriptions: Bacitracin Ointment [Bacitracin] 1 applic TOP BID #1 tube Cephalexin [cephalexin] 500 mg PO QID #28 cap Ibuprofen [Motrin] 600 mg PO Q6H #30 tab Sulfamethoxazole/Trimethoprim [Bactrim DS 800 mg-160 mg] 1 tab PO BID #14 tab Instructions: Acute Wound Care (ED) Forms: [employer] (P[place]an) - Clinical Impression Clinical Impression: Infected abrasion
== END 2016-11-10 20:10 | disposition home or self-care (01) ==
LOC: C.ER 18:38
DX: L08.9 Local infection of the skin and subcutaneous tissue, unspecified (principal)

== ENCOUNTER 2016-12-18 13:19 | Emergency (ER) | payer MEDICARE ==
[2016-12-18 13:20] VITALS: BMI 34.4
[2016-12-18 13:33] VITALS: RESP 20; TEMP 98; O2SAT 100
[2016-12-18 16:28] VITALS: BP 120/72; PULSE 72
--- NOTE | 2016-12-18 16:35 | RAD ---
PROCEDURE: Left Knee Radiographs. HISTORY: Pain. COMPARISON: 11/08/2016 FINDINGS: BONES: . No interval fracture noted JOINTS: Tricompartmental joint space narrowing, medial and lateral knee joint line spurring -moderate osteoarthrosis. Tibial fibular hypertrophic arthrosis also suggested. Findings are similar JOINT EFFUSION: None. OTHER FINDINGS: None. IMPRESSION: Tricompartmental osteoarthrosis- medial femoral tibial and patellofemoral compartments most notably affected. No interval change perceived. No fracture appreciated. Given the persistent pain since the fairly recent prior study, consider MRI of the left knee for further evaluation particular regarding any potential stress insufficiency fractures or marrow edema -that may be radiographically occult
--- NOTE | 2016-12-18 22:31 | C.PDOC ---
History Of Present Illness 46 year old female, with a history of advanced osteoarthritis in both knees, presents to the ED status post trip and fall landing onto left knee. Patient reports she used her hands to block her fall and landed on her knee. She has a total left knee replacement scheduled for next month. Patient denies symptoms prior to fall, weakness, or numbness. Time Seen by Provider: 12/18/16 13:57 Chief Complaint (Nursing): Lower Extremity Problem/Injury History Per: Patient History/Exam Limitations: no limitations Onset/Duration Of Symptoms: Days Current Symptoms Are (Timing): Still Present Recent travel outside of the [place]: No Additional History Per: Prior Records Past Medical History Reviewed: Historical Data, Nursing Documentation, Vital Signs Vital Signs: Last Vital Signs Temp 98 F 12/18/16 13:30 Pulse 72 12/18/16 16:26 Resp 20 12/18/16 16:26 BP 120/72 12/18/16 16:26 Pulse Ox 100 12/18/16 22:43 - Medical History PMH: Anemia, Anxiety, Arthritis (osteoarthritis), Asthma, Back Problems, Bipolar Disorder, Depression, HTN, Malignancy (Colon), Rheumatoid Arthritis, Schizophrenia - [facility] Procedures CLOSED ENDOSCOPIC BIOPSY OF LARGE INTESTINE (05/23/14) COLONOSCOPY (08/12/14) DX ULTRASOUND-ABDOMEN (05/23/14) INSERTION OF TOTALLY IMPLANTABLE VASC ACCESS DEVIC (05/23/14) LAPAROSCOP LYSIS-PERITONEAL ADHES (05/23/14) LAPAROSCOPIC SIGMOIDECTOMY (05/23/14) OTHER ENDOSCOPY OF SM INTEST (05/23/14) PACKED CELL TRANSFUSION (05/23/14) PERCUTAN NEEDLE BX OF LIVER (05/23/14) REMOVAL OF VAD FROM TRUNK SUBCU/FASCIA, PERC APPROACH (03/16/15) Family History: States: Unknown Family Hx - Social History Hx Tobacco Use: No Hx Alcohol Use: No Hx Substance Use: No - Immunization History Hx Tetanus Toxoid Vaccination: Yes Hx Influenza Vaccination: Yes (2016) Hx Pneumococcal Vaccination: Yes Review Of Systems Constitutional: Negative for: Fever Musculoskeletal: Positive for: Foot Pain (right foot pain ) Physical Exam - Physical Exam Appears: Non-toxic, No Acute Distress Skin: Warm, Dry Cardiovascular: Rhythm Regular, No Murmur Respiratory: No Rales, No Rhonchi, No Wheezing, Other (clear to auscultation bilaterally ) Extremity: Normal ROM, Tenderness (diffuse tenderness of the right foot ), No Pedal Edema, No Calf Tenderness, Capillary Refill (good capillary refill, less than two seconds ), No Deformity, Swelling (diffuse swelling of the right foot ) , Other (+crepitus of the right foot ) Neurological/Psych: Oriented x3 ED Course And Treatment O2 Sat by Pulse Oximetry: 100 (RA) - Other Rad Left knee X-Ray X-Ray: Viewed By Me, Read By Radiologist Interpretation: FINDINGS: BONES: . No interval fracture noted. JOINTS: Tricompartmental joint space narrowing, medial and lateral knee joint line spurring -moderate osteoarthrosis. Tibial fibular hypertrophic arthrosis also suggested. Findings are similar. JOINT EFFUSION: None. OTHER FINDINGS: None. IMPRESSION: Tricompartmental osteoarthrosis- medial femoral tibial and patellofemoral compartments most notably affected. No interval change perceived. No fracture appreciated. Given the persistent pain since the fairly recent prior study, consider MRI of the left knee for further evaluation particular regarding any potential stress insufficiency fractures or marrow edema -that may be radiographically occult Progress Note: Patient was given Motrin and left knee X-ray was ordered. Disposition - Disposition Referrals: [facility] Doris Peters, [Non-Staff] - Disposition: HOME/ ROUTINE Disposition Time: 16:00 Condition: GOOD Additional Instructions: Thank you for letting us take care of you today. Your provider was Dr. Muhammad. You were treated for knee pain. The emergency medical care you received today was directed at your acute symptoms. If you were prescribed any medication, please fill it and take as directed. It may take several days for your symptoms to resolve. Return to the Emergency Department if your symptoms worsen, do not improve, or if you have any other problems. Please contact your doctor or call one of the physicians/clinics you have been referred to that are listed on the Patient Visit Information form that is included in your discharge packet. Bring any paperwork you were given at discharge with you along with any medications you are taking to your follow up visit. Our treatment cannot replace ongoing medical care by a primary care provider (PCP) outside of the emergency department. Thank you for allowing the [facility] team to be part of your care today. Follow up with your orthopedic doctor as scheduled for further management of you knee. Prescriptions: Ibuprofen [Motrin] 800 mg PO Q6 PRN #20 tab PRN Reason: Pain, Moderate (4-7) Instructions: Knee Pain (ED) Forms: [facility] (Ukrainian) - Clinical Impression Clinical Impression: Knee contusion - Scribe Statement The provider has reviewed the documentation as recorded by the Scribe Shira Arthur All medical record entries made by the Christopheribe were at my direction and personally dictated by me. I have reviewed the chart and agree that the record accurately reflects my personal performance of the history, physical exam, medical decision making, and the department course for this patient. I have also personally directed, reviewed, and agree with the discharge instructions and disposition.
== END 2016-12-18 16:27 | disposition home or self-care (01) ==
LOC: C.ER 13:19
DX: S80.02XA Contusion of left knee, initial encounter (principal); W01.0XXA Fall on same level from slipping, tripping and stumbling without subsequent striking against object, initial encounter

== ENCOUNTER 2017-01-21 11:55 | Emergency (ER) | payer MEDICARE ==
[2017-01-21 11:56] VITALS: BMI 34.4
[2017-01-21 12:16] VITALS: O2SAT 99
--- NOTE | 2017-01-21 12:48 | C.PDOC ---
History Of Present Illness 46 y/o female with PMHx of bipolar disorder presents to ED with complaints of left shoulder pain radiating to left side of chest since earlier today. Patient was admitted recently for similar complaints and was seen by register of deeds. As per register of deeds note on previous chart patient had non cardiac pain and had normal stress test within 12 months. No other complaints at this time. Time Seen by Provider: 01/21/17 12:34 Chief Complaint (Nursing): Chest Pain History Per: Patient History/Exam Limitations: no limitations Onset/Duration Of Symptoms: Days Current Symptoms Are (Timing): Still Present Quality: "Pain" Past Medical History Reviewed: Historical Data, Nursing Documentation, Vital Signs Vital Signs: Last Vital Signs Temp 98.1 F 01/21/17 12:13 Pulse 75 01/21/17 12:13 Resp 18 01/21/17 12:13 BP Pulse Ox 99 01/21/17 12:51 - Medical History PMH: Anemia, Anxiety, Arthritis (osteoarthritis), Asthma, Back Problems, Bipolar Disorder, Depression, HTN, Malignancy (Colon), Rheumatoid Arthritis, Schizophrenia Surgical History: No Surg Hx - [facility] Procedures CLOSED ENDOSCOPIC BIOPSY OF LARGE INTESTINE (05/23/14) COLONOSCOPY (08/12/14) DX ULTRASOUND-ABDOMEN (05/23/14) INSERTION OF TOTALLY IMPLANTABLE VASC ACCESS DEVIC (05/23/14) LAPAROSCOP LYSIS-PERITONEAL ADHES (05/23/14) LAPAROSCOPIC SIGMOIDECTOMY (05/23/14) OTHER ENDOSCOPY OF SM INTEST (05/23/14) PACKED CELL TRANSFUSION (05/23/14) PERCUTAN NEEDLE BX OF LIVER (05/23/14) REMOVAL OF VAD FROM TRUNK SUBCU/FASCIA, PERC APPROACH (03/16/15) Family History: States: No Known Family Hx - Social History Hx Tobacco Use: No Hx Alcohol Use: No Hx Substance Use: No - Immunization History Hx Tetanus Toxoid Vaccination: No Hx Influenza Vaccination: No Hx Pneumococcal Vaccination: No Review Of Systems Except As Marked, All Systems Reviewed And Found Negative. Cardiovascular: Positive for: Chest Pain Musculoskeletal: Positive for: Shoulder Pain Physical Exam - Physical Exam Appears: Non-toxic, No Acute Distress Skin: Normal Color, Warm, Dry, No Rash Head: Atraumatic, Normacephalic Eye(s): bilateral: Normal Inspection Oral Mucosa: Moist Throat: Normal, No Erythema, No Exudate Neck: Normal ROM, Supple Chest: Symmetrical Cardiovascular: Rhythm Regular Respiratory: Normal Breath Sounds, No Rales, No Rhonchi, No Wheezing Extremity: No Tenderness, Capillary Refill (<2 seconds), No Deformity, No Swelling, Other (Left shoulder pain with rom) Pulses: Left Brachial: Normal, Right Brachial: Normal Neurological/Psych: Oriented x3, Normal Motor, Normal Sensation ED Course And Treatment - Laboratory Results Result Diagrams: 01/21/17 13:20 01/21/17 13:20 ECG: Interpreted By Me, Viewed By Me ECG Rhythm: Sinus Rhythm Rate From EC (bpm) O2 Sat by Pulse Oximetry: 99 (RA) Pulse Ox Interpretation: Normal Medical Decision Making Medical Decision Making: atypical pain, pain to left shoulder worse with movement. perc neg. no pleurtic component. advise outpt fu and return precautions Disposition - Disposition Referrals: Shaik Saxena MD [Primary Care Provider] - Disposition: HOME/ ROUTINE Disposition Time: 16:10 Condition: STABLE Forms: [facility] (Dutch) - Clinical Impression Clinical Impression: Chest pain, Shoulder pain - Scribe Statement The provider has reviewed the documentation as recorded by the Scribirasema Hwang All medical record entries made by the Scribe were at my direction and personally dictated by me. I have reviewed the chart and agree that the record accurately reflects my personal performance of the history, physical exam, medical decision making, and the department course for this patient. I have also personally directed, reviewed, and agree with the discharge instructions and disposition.
--- NOTE | 2017-01-21 13:27 | RAD ---
HISTORY: chest pain COMPARISON: TECHNIQUE: Chest PA and lateral FINDINGS: Situ right subclavian MediPort with tip in the SVC unchanged. LUNGS: No active pulmonary disease. PLEURA: No significant pleural effusion identified. No pneumothorax apparent. CARDIOVASCULAR: Normal. OSSEOUS STRUCTURES: Minor multilevel degenerative spondylosis of the thoracic spine. VISUALIZED UPPER ABDOMEN: Normal. OTHER FINDINGS: None. IMPRESSION: No active disease. Ultrasound: Because on the head 7 HU trying to down lobe trend 2 documents for that corporate potentially in application and revealing 2 that in the the tip down low admits colon content and the other 1 at the level at not currently not on that web site adherent Dar ossicle reading extruded but S1 UPEP print dose to things after medium fax it to my office
[2017-01-21 13:40] LABS: BASO % 0.2 % (0.0-2.0); EOS % 0.4 % (0.0-4.0); HEMATOCRIT 35.3 % (34.0-47.0); LYMPH # 0.8 K/uL (1.0-4.3); LYMPH % 17.8 % (20.0-40.0); MEAN CORPUSCULAR HEMOGLOBIN 26.8 pg (27.0-31.0); MEAN CORPUSCULAR HGB CONC 32.7 g/dL (33.0-37.0); MEAN PLATELET VOLUME 8.4 fL (7.2-11.7); MONO # 0.3 K/uL (0.0-0.8); MONO % 5.4 % (0.0-10.0); NRBC % 0.7 % (0.0-2.0); RED CELL DISTRIBUTION WIDTH 16.7 % (11.5-14.5); WHITE BLOOD COUNT 4.7 K/uL (4.8-10.8)
--- NOTE | 2017-01-21 13:47 | RAD ---
PROCEDURE: Left shoulder dated 03/23/2016 HISTORY: shoulder pain COMPARISON: No prior. FINDINGS: BONES: Normal. No fracture. JOINTS: Moderate degenerative changes of the left glenohumeral joint with the osteophytes/productive changes arising from the inferomedial aspect of the humeral head and greater tuberosity region. . Mild degenerative changes left acromioclavicular joint. SOFT TISSUES: Normal. OTHER FINDINGS: None. IMPRESSION: DJD as described. No acute displaced fracture nor dislocation.
[2017-01-21 13:48] LABS: INR 1.1
[2017-01-21 14:26] LABS: URINE BILIRUBIN NEGATIVE (NEGATIVE); URINE BLOOD 1+ (NEGATIVE); URINE COLOR Straw (YELLOW); URINE GLUCOSE (UA) NORMAL (Normal); URINE KETONE NEGATIVE (NEGATIVE); URINE LEUKOCYTE ESTERASE NEG Leu/uL (Negative); URINE PROTEIN NEGATIVE (NEGATIVE); URINE UROBILINOGEN NORMAL mg/dL (0.2-1.0); WBC URINE < 1 /hpf (0-5)
[2017-01-21 15:55] LABS: ALB/GLOB RATIO 1.4 (1.0-2.1); ALKALINE PHOSPHATASE 82 U/L (38-126); ALT/SGPT 32 U/L (9-52); AST/SGOT 23 U/L (14-36); BILIRUBIN,TOTAL 0.9 mg/dL (0.2-1.3); BLOOD UREA NITROGEN 8 mg/dL (7-17); CALCIUM 8.5 mg/dl (8.6-10.4); CARBON DIOXIDE 27 mmol/L (22-30); CHLORIDE 99 mmol/L (98-107); GFR AFRICAN-AMERICAN > 60; GLUCOSE,RANDOM 80 mg/dL (65-105); POTASSIUM 3.6 mmol/L (3.6-5.2); SODIUM 136 mmol/L (132-148); TOTAL PROTEIN 6.8 g/dL (6.3-8.3)
[2017-01-21 16:26] VITALS: BP 143/45; PULSE 85; RESP 20; TEMP 97.4
== END 2017-01-21 16:25 | disposition home or self-care (01) ==
LOC: SUPCPDRO 11:55 → C.ER 11:55
DX: R07.9 Chest pain, unspecified (principal); M25.512 Pain in left shoulder; I10 Essential (primary) hypertension; M06.9 Rheumatoid arthritis, unspecified
CPT/HCPCS: 71020; 73030; 80053; 81001; 84484; 84703; 85025; 85610; 85730; 96374; 99284; J1885

== ENCOUNTER 2017-03-15 14:15 | Emergency (ER) | payer MEDICARE ==
[2017-03-15 14:15] VITALS: BMI 34.4
[2017-03-15] MEDS ORDERED: Sodium Chloride 0.9% 1,000 ML IV ONE (15:30)
[2017-03-15 15:56] LABS: HCG,QUALITATIVE URINE NEGATIVE (NEGATIVE)
[2017-03-15 16:04] LABS: SQUAMOUS EPITHIAL 6 /hpf (0-5); URINE BACTERIA FEW (<OCC); URINE BILIRUBIN NEGATIVE (NEGATIVE); URINE BLOOD 1+ (NEGATIVE); URINE CLARITY Clear (Clear); URINE COLOR Yellow (YELLOW); URINE GLUCOSE (UA) NORMAL (Normal); URINE LEUKOCYTE ESTERASE NEG Leu/uL (Negative); URINE NITRATE NEGATIVE (NEGATIVE); URINE PROTEIN NEGATIVE (NEGATIVE)
[2017-03-15] MEDS ORDERED: Sodium Chloride 0.9% 1,000 ML ONE (16:04)
[2017-03-15 16:22] LABS: BASO % 0.8 % (0.0-2.0); EOS % 0.4 % (0.0-4.0); HEMOGLOBIN 10.5 g/dL (11.0-16.0); LYMPH # 0.6 K/uL (1.0-4.3); LYMPH % 14.5 % (20.0-40.0); MEAN CELL VOLUME 77.7 fL (81.0-99.0); MEAN CORPUSCULAR HEMOGLOBIN 25.3 pg (27.0-31.0); MEAN CORPUSCULAR HGB CONC 32.5 g/dL (33.0-37.0); MEAN PLATELET VOLUME 8.1 fL (7.2-11.7); MONO # 0.3 K/uL (0.0-0.8); MONO % 6.1 % (0.0-10.0); NEUT # 3.4 K/uL (1.8-7.0); NEUT % 78.2 % (50.0-75.0); RBC 4.17 Mil/uL (3.80-5.20); RED CELL DISTRIBUTION WIDTH 15.9 % (11.5-14.5); WHITE BLOOD COUNT 4.3 K/uL (4.8-10.8)
[2017-03-15 16:36] LABS: ALB/GLOB RATIO 1.2 (1.0-2.1); ALBUMIN 3.6 g/dL (3.5-5.0); ALT/SGPT 23 U/L (9-52); AST/SGOT 18 U/L (14-36); BLOOD UREA NITROGEN 7 mg/dL (7-17); CALCIUM 8.4 mg/dl (8.6-10.4); GFR AFRICAN-AMERICAN > 60; GFR NON-AFRICAN AMERICAN > 60; LIPASE 52 U/L (23-300)
--- NOTE | 2017-03-15 17:06 | CT ---
PROCEDURE: CT Abdomen and Pelvis without intravenous contrast HISTORY: Left flank pain. By history, negative test (concurrent with this examination). COMPARISON: 05/31/2016 CT abdomen and pelvis TECHNIQUE: Unenhanced study. Neither oral nor intravenous contrast administered. Radiation dose: Total exam DLP = 1164.36 mGy-cm. This CT exam was performed using one or more of the following dose reduction techniques: Automated exposure control, adjustment of the mA and/or kV according to patient size, and/or use of iterative reconstruction technique. FINDINGS: LOWER THORAX: Unremarkable. LIVER: Unremarkable. No gross lesion or ductal dilatation. GALLBLADDER AND BILE DUCTS: Unremarkable. PANCREAS: Unremarkable. No gross lesion or ductal dilatation. SPLEEN: Stable splenomegaly. ADRENALS: Unremarkable. No mass. KIDNEYS AND URETERS: Unremarkable. No hydronephrosis. No solid mass. VASCULATURE: Unremarkable. No aortic aneurysm. BOWEL: Constipation without fecal impaction or obstruction. . Diverticulosis without an acute inflammatory component or other associated pathologic process. . Surgical suture line. APPENDIX: Unremarkable. Normal appendix. PERITONEUM: Unremarkable. No free fluid. No free air. LYMPH NODES: Unremarkable. No enlarged lymph nodes. BLADDER: Unremarkable. REPRODUCTIVE: Unremarkable. BONES: No acute fracture. OTHER FINDINGS: None. IMPRESSION: No significant or acute findings to account for/ related to the clinical presentation. Additional benign and/or incidental findings described above. No significant interval change compared to the prior examination(s).
--- NOTE | 2017-03-15 17:44 | C.PDOC ---
Time Seen by Provider: 03/15/17 15:03 Chief Complaint (Nursing): Abdominal Pain History Per: Patient Onset/Duration Of Symptoms: Days (1) Current Symptoms Are (Timing): Still Present Severity: Moderate Location Of Pain/Discomfort: LUQ, LLQ Radiation Of Pain To:: Back Quality Of Discomfort: Unable To Describe, "Pain" Exacerbating Factors: None Alleviating Factors: None Additional History Per: Prior Records Past Medical History Reviewed: Historical Data, Nursing Documentation, Vital Signs Vital Signs: Last Vital Signs Temp 98.6 F 03/15/17 14:32 Pulse 100 H 03/15/17 14:32 Resp 18 03/15/17 14:32 BP 164/92 H 03/15/17 14:32 Pulse Ox 98 03/15/17 14:32 - Medical History PMH: Anemia, Anxiety, Arthritis (osteoarthritis), Asthma, Back Problems, Bipolar Disorder, Depression, HTN, Malignancy (Colon), Rheumatoid Arthritis, Schizophrenia Other Surgeries: Colon resection - [facility] Procedures CLOSED ENDOSCOPIC BIOPSY OF LARGE INTESTINE (05/23/14) COLONOSCOPY (08/12/14) DX ULTRASOUND-ABDOMEN (05/23/14) INSERTION OF TOTALLY IMPLANTABLE VASC ACCESS DEVIC (05/23/14) LAPAROSCOP LYSIS-PERITONEAL ADHES (05/23/14) LAPAROSCOPIC SIGMOIDECTOMY (05/23/14) OTHER ENDOSCOPY OF SM INTEST (05/23/14) PACKED CELL TRANSFUSION (05/23/14) PERCUTAN NEEDLE BX OF LIVER (05/23/14) REMOVAL OF VAD FROM TRUNK SUBCU/FASCIA, PERC APPROACH (03/16/15) Family History: States: Unknown Family Hx - Social History Hx Tobacco Use: No Hx Alcohol Use: No Hx Substance Use: No - Immunization History Hx Tetanus Toxoid Vaccination: No Hx Influenza Vaccination: No Hx Pneumococcal Vaccination: No Review Of Systems Except As Marked, All Systems Reviewed And Found Negative. Constitutional: Negative for: Fever, Weakness Cardiovascular: Negative for: Chest Pain Respiratory: Negative for: Shortness of Breath Gastrointestinal: Positive for: Abdominal Pain. Negative for: Vomiting, Diarrhea Genitourinary: Negative for: Dysuria, Vaginal Discharge Musculoskeletal: Positive for: Back Pain. Negative for: Neck Pain Skin: Negative for: Rash Neurological: Negative for: Weakness, Numbness Physical Exam - Physical Exam Appears: Non-toxic, No Acute Distress Skin: Normal Color, Warm, Dry, No Rash Head: Atraumatic, Normacephalic Eye(s): bilateral: Normal Inspection, PERRL, EOMI Neck: Normal ROM, Supple Cardiovascular: Rhythm Regular Respiratory: Normal Breath Sounds, No Accessory Muscle Use Gastrointestinal/Abdominal: Soft, Tenderness (left sided), No Guarding, No Rebound Back: CVA Tenderness (mild left) Extremity: Normal ROM Neurological/Psych: Oriented x3, Normal Motor, Normal Sensation ED Course And Treatment - Laboratory Results Result Diagrams: 03/15/17 16:19 03/15/17 16:19 Lab Interpretation: No Acute Changes Urine POC: Negative O2 Sat by Pulse Oximetry: 98 Pulse Ox Interpretation: Normal - CT Scan/US CT abd/pelv Other Rad Studies (CT/US): Read By Radiologist, Radiology Report Reviewed CT/US Interpretation: IMPRESSION: No significant or acute findings to account for/ related to the clinical presentation. Additional benign and/or incidental findings described above. No significant interval change compared to the prior examination(s). Progress Note: Pt feels much better and wants to go home. Pain resolved. Reassessment Condition: Improved Progress - Interventions Interventions:: Observation, Intravenous fluid - Medications Administered Intravenous: NSAID - Data Reviewed Data Reviewed: Lab, Diagnostic imaging, Old records - Patient Status Patient status: Mostly improved - Continuity of Care Discussed patient case with:: Patient, ED Nurse - Patient Plan Patient Plan: Discharge, F/U with PCP, Continue present meds Disposition Counseled Patient/Family Regarding: Studies Performed, Diagnosis, Need For Followup, Rx Given - Disposition Referrals: Shaik Saxena MD [Staff Provider] - Disposition: HOME/ ROUTINE Disposition Time: 17:45 Condition: IMPROVED Additional Instructions: Follow up with your doctor. Return to the ER if you develop fever, vomiting, worsening of symptoms or if you have any other concerns. Prescriptions: Polyethylene Glycol 3350 [Miralax] 17 gm PO DAILY #7 packet Instructions: Abdominal Pain (ED) - Clinical Impression Clinical Impression: Left sided abdominal pain, Constipation
[2017-03-15 18:30] VITALS: BP 132/98; PULSE 90; RESP 20; TEMP 98.1; O2SAT 96
== END 2017-03-15 18:00 | disposition home or self-care (01) ==
LOC: C.ER 14:15
DX: K59.00 Constipation, unspecified (principal); R10.12 Left upper quadrant pain
CPT/HCPCS: 74176; 80053; 81001; 83690; 84703; 85025; 96361; 96374; 99285; J1885; J7040

== ENCOUNTER 2017-05-02 13:33 | Inpatient (IN) | payer MEDICARE ==
[2017-05-02 13:33] VITALS: BMI 34.4
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
[2017-05-02] MEDS ORDERED: Piperacillin/Tazobact 3.375 GM in Sodium Chloride 100 ML IVPB STA (14:10)
--- NOTE | 2017-05-02 14:31 | RAD ---
PROCEDURE: Left Knee Radiographs. HISTORY: Pain. COMPARISON: Left knee radiographs 12/18/2016. FINDINGS: BONES: No fracture or destructive bony lesion appreciable. JOINTS: No subluxation or dislocation appreciated status post total knee replacement with hardware in good apparent position in the interval. Fluid is seen in the suprasellar bursa at this time. Soft tissues are otherwise unremarkable appear JOINT EFFUSION: As above. OTHER FINDINGS: As above. IMPRESSION: Status post interval total knee replacement with hardware as discussed above. No interval fracture, subluxation or dislocation. Suprasellar bursa effusion is suggested.
[2017-05-02] MEDS ORDERED: Piperacillin/Tazobact 3.375 gm 100 ML IVPB ONE (14:38)
[2017-05-02 14:42] LABS: BASO % 0.4 % (0.0-2.0); EOS % 0.7 % (0.0-4.0); HEMOGLOBIN 9.3 g/dL (11.0-16.0); LYMPH # 0.6 K/uL (1.0-4.3); LYMPH % 19.8 % (20.0-40.0); MEAN CORPUSCULAR HGB CONC 32.1 g/dL (33.0-37.0); MEAN PLATELET VOLUME 8.1 fL (7.2-11.7); MONO # 0.2 K/uL (0.0-0.8); NEUT # 2.4 K/uL (1.8-7.0); NEUT % 73.1 % (50.0-75.0); NRBC % 0.1 % (0.0-2.0); RBC 3.87 Mil/uL (3.80-5.20); RED CELL DISTRIBUTION WIDTH 17.4 % (11.5-14.5); WHITE BLOOD COUNT 3.2 K/uL (4.8-10.8)
[2017-05-02 14:49] LABS: MEAN CELL VOLUME 74.6 fL (81.0-99.0)
[2017-05-02] MEDS ORDERED: Piperacill/Tazo 3.375gm in Dex 3.375 GM/50 ML BAG IVPB ONE (15:00)
[2017-05-02 15:12] LABS: BLOOD UREA NITROGEN 5 mg/dL (7-17); GFR AFRICAN-AMERICAN > 60; GFR NON-AFRICAN AMERICAN > 60
[2017-05-02 15:13] LABS: ALBUMIN 3.2 g/dL (3.5-5.0); ALT/SGPT 24 U/L (9-52); AST/SGOT 17 U/L (14-36); CALCIUM 8.4 mg/dl (8.6-10.4)
[2017-05-02] MEDS ORDERED: Vancomycin 1 gm/NS 200 ml 1 GM/200 ML BAG IVPB ONE (15:30)
[2017-05-02] MEDS ORDERED: Potassium Chloride 20 mEq ER Tab PO STA ×2 (15:31→15:38)
[2017-05-02] MEDS ORDERED: Potassium Chloride 20 mEq ER Tab PO ONE ×3 (15:39→16:57)
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
--- NOTE | 2017-05-02 23:16 | CP.PCM.HP ---
Past Patient History - Infectious Disease Hx of Infectious Diseases: None - Past Medical History & Family History Past Medical History?: Yes - Past Social History Smoking Status: Never Smoked - CARDIAC Hx Hypertension: Yes - PULMONARY Hx Asthma: Yes - NEUROLOGICAL Hx Neurological Disorder: No - HEENT Hx HEENT Problems: No - RENAL Hx Chronic Kidney Disease: No - ENDOCRINE/METABOLIC Hx Endocrine Disorders: No - HEMATOLOGICAL/ONCOLOGICAL Hx Anemia: Yes - INTEGUMENTARY Hx Dermatological Problems: No - MUSCULOSKELETAL/RHEUMATOLOGICAL Hx Arthritis: Yes (osteoarthritis) Hx Falls: No Hx Rheumatoid Arthritis: Yes - GASTROINTESTINAL Hx Bowel Surgery: Yes Other/Comment: COLON CANCER STAGE 4 WITH CHEMOTHERAPY, last chemo was September 2016. R side port a cath - GENITOURINARY/GYNECOLOGICAL Hx Genitourinary Disorders: No - PSYCHIATRIC Hx Anxiety: Yes Hx Bipolar Disorder: Yes Hx Depression: Yes Hx Schizophrenia: Yes Hx Substance Use: Yes - SURGICAL HISTORY Hx Surgeries: Yes (SEE COMMENT) Hx Orthopedic Surgery: Yes (left knee) Hx Vascular Access Device: Yes (RIGHT SUBCLAVIAN) Other/Comment: colon cancer surgery april 2014 to remove tumor, rt side subclavian Port - ANESTHESIA Hx Anesthesia: Yes Hx Anesthesia Reactions: No Meds Allergies/Adverse Reactions: Allergies Allergy/AdvReac Type Severity Reaction Status Date / Time No Known Allergies Allergy Verified 05/02/17 13:38 Physical Exam - Constitutional Appears: Well - Head Exam Head Exam: ATRAUMATIC, NORMAL INSPECTION, NORMOCEPHALIC - Eye Exam Eye Exam: EOMI, Normal appearance, PERRL Pupil Exam: NORMAL ACCOMODATION, PERRL - ENT Exam ENT Exam: Mucous Membranes Moist, Normal Exam - Neck Exam Neck exam: Positive for: Normal Inspection - Respiratory Exam Respiratory Exam: Decreased Breath Sounds - Cardiovascular Exam Cardiovascular Exam: REGULAR RHYTHM, +S1, +S2 - GI/Abdominal Exam GI & Abdominal Exam: Diminished Bowel Sounds, Soft - Rectal Exam Rectal Exam: Deferred Results - Vital Signs Recent Vital Signs: Last Vital Signs Temp 97.4 F L 05/02/17 18:20 Pulse 83 05/02/17 18:20 Resp 20 05/02/17 18:20 BP 126/87 05/02/17 18:20 Pulse Ox 98 05/02/17 18:20 - Labs Result Diagrams: 05/02/17 14:34 05/02/17 14:34 Labs: Laboratory Results - last 24 hr 05/02/17 05/02/17 14:34 14:34 WBC 3.2 L RBC 3.87 Hgb 9.3 L Hct 28.8 L MCV 74.6 L D MCH 24.0 L MCHC 32.1 L RDW 17.4 H Plt Count 104 L MPV 8.1 Neut % (Auto) 73.1 Lymph % (Auto) 19.8 L [place] % (Auto) 6.0 Eos % (Auto) 0.7 Baso % (Auto) 0.4 Neut # (Auto) 2.4 Lymph # (Auto) 0.6 L [place] # (Auto) 0.2 Eos # (Auto) 0.0 Baso # (Auto) 0.0 Differential Comment Sodium 140 Potassium 3.3 L Chloride 102 Carbon Dioxide 30 Anion Gap 11 BUN 5 L Creatinine 0.7 Est GFR ( Amer) > 60 Est GFR (Non-Af Amer) > 60 Random Glucose 102 Calcium 8.4 L Total Bilirubin 0.6 AST 17 ALT 24 Alkaline Phosphatase 72 Total Protein 6.3 Albumin 3.2 L Globulin 3.1 Albumin/Globulin Ratio 1.0 Assessment & Plan - Assessment and Plan (Free Text) Plan: Continue follow-up with orthopedic doctor and IV antibiotic follow-up with the surgeons status post KCl supplementation continue clonazepam continue dressing continue vancomycin status post surgery follow-up with the orthopedic
[2017-05-03] MEDS: oxyCODONE 5 mg Immediate Release Tab PO PRN ×3 (01:46→21:56)
[2017-05-03] MEDS ORDERED: Piperacillin/Tazobact 3.375 gm 100 ML IVPB SCH (10:00)
[2017-05-03] MEDS: Pantoprazole 40 mg EC Tab PO SCH (10:44)
[2017-05-03] MEDS ORDERED: Potassium Chloride 20 mEq ER Tab PO STA (14:32)
[2017-05-03] MEDS ORDERED: Vancomycin 1 gm/NS 200 ml 1 GM/200 ML BAG IVPB SCH (15:30)
--- NOTE | 2017-05-03 17:54 | CP.PCM.CON ---
History of Present Illness - History of Present Illness History of Present Illness: 46-year-old female came in to ER via EMS for evaluation of left knee pain. Patient [place] [facility] [place] reports that she has been cleaning her incision site properly but her knee has progressively worsened over the past week. She states movement and ambulation makes the pain worse. she was seen by her primary ortho surgeon, Dr. Car, 2 weeks ago. Does report chills, no fevers. No chest pain, no SOB. No sick contacts. ID requested for antibiotic management PMH: stage 4 colon cancer diagnosed in 2014, depression, bipolar disorder, asthma, copd PSH: Total knee replacement on the left on 04/05/17, sigmoidectomy 2014, tubal ligation in 2005, left leg ligament surgery 2001 Family hx: father had dementia and from lung cancer. Mother has RA. Social hx: Admits to cocaine use - last use yesterday, denies smoking and alcohol use NKDA Review of Systems - Review of Systems All systems: reviewed and no additional remarkable complaints except - Constitutional Constitutional: As Per HPI, Chills. absent: Fever - EENT Eyes: absent: As Per HPI, Blind Spots, Blurred Vision, Change in Vision, Decreased Night Vision, Diplopia, Discharge, Dry Eye, Exophthalmos, Floaters, Irritation, Itchy Eyes, Loss of Peripheral Vision, Pain, Photophobia, Requires Corrective Lenses, Sees Flashes, Spots in Vision, Tunnel Vision, Other Visual Disturbances, Loss of Vision, Other Ears: absent: As Per HPI, Decreased Hearing, Ear Discharge, Ear Pain, Tinnitus, Abnormal Hearing, Disequilibrium, Dizziness, Other Nose/Mouth/Throat: absent: As Per HPI, Epistaxis, Nasal Congestion, Nasal Discharge, Nasal Obstruction, Nasal Trauma, Nose Pain, Post Nasal Drip, Sinus Pain, Sinus Pressure, Bleeding Gums, Change in Voice, Dental Pain, Dry Mouth, Dysphagia, Halitosis, Hoarsness, Lip Swelling, Mouth Lesions, Mouth Pain, Odynophagia, Sore Throat, Throat Swelling, Tongue Swelling, Facial Pain, Neck Pain, Neck Mass, Other - Breasts Breasts: absent: As Per HPI, Change in Shape, Mass, Pain, Nipple Discharge, Nipple Inversion, Skin Changes, Swelling, Other - Cardiovascular Cardiovascular: absent: As Per HPI, Acrocyanosis, Chest Pain, Chest Pain at Rest , Chest Pain with Activity, Claudication, Diaphoresis, Dyspnea, Dyspnea on Exertion, Edema, Irregular Heart Rhythm, Pain Radiating to Arm/Neck/Jaw, Leg Edema, Leg Ulcers, Lightheadedness, Orthopnea, Palpitations, Paroxysmal Nocturnal Dyspnea, Pedal Edema, Radiating Pain, Rapid Heart Rate, Slow Heart Rate, Syncope, Other - Respiratory Respiratory: absent: As Per HPI, Cough, Dyspnea, Hemoptysis, Dyspnea on Exertion , Wheezing, Snoring, Stridor, Pain on Inspiration, Chest Congestion, Excessive Mucous Production, Change in Mucous Color, Pain with Coughing, Other - Gastrointestinal Gastrointestinal: absent: As Per HPI, Abdominal Pain, Belching, Bloating, Change in Bowel Habits, Change in Stool Character, Coffee Ground Emesis, Constipation, Cramping, Diarrhea, Dyspepsia, Dysphagia, Early Satiety, Excessive Flatus, Fecal Incontinence, Heartburn, Hematemesis, Hematochezia, Loose Stools, Melena, Nausea, Odynophagia, Temesmus, Vomiting, Other - Genitourinary Genitourinary: absent: As Per HPI, Change in Urinary Stream, Difficulty Urinating, Dysuria, Flank Pain, Hematuria, Pyuria, Nocturia, Urinary Incontinence, Urinary Frequency, Urinary Hesitance, Urinary Urgency, Voiding Freq/Small Amts, Freq UTI, Hx Renal/Bladder Calculi, Hx /Renal Surgery, Bladder Distension, Other - Reproductive: Female Reproductive:Female: absent: As Per HPI, Amenorrhea, Amenorrhea/ Control, Currently Menstual, Cycle <21 Days, Cycle >35 Days, Cycle Variable, Menses 1-7 Days, Menses >/= 8 Days, Menses Variable, Cycle > 4 Weeks Between, No Menses for 6 Months, Heavy Menses, Light Menses, Normal Menses, Spotting Between Cycles , S/P Hysterectomy, Menopausal, Post Menopausal, Premenarche, Abnormal Vaginal Bleeding, Dysmenorrhea, Dyspareunia, Genital Lesions, Genital Pruritis, Pelvic Pain, Prolapse Symptoms, Sexual Dysfunction, Vaginal Discharge, Vaginal Dryness , Vaginal Odor, Vaginal Pruritis, Other - Menstruation Menstruation: absent: As Per HPI, Amenorrhea, Amenorrhea/ Control, Currently Menstual, Cycle <21 Days, Cycle >35 Days, Cycle Variable, Menses 1-7 Days, Menses >/= 8 Days, Menses Variable, Cycle > 4 Weeks Between, No Menses for 6 Months, Heavy Menses, Light Menses, Normal Menses, Spotting Between Cycles , S/P Hysterectomy, Menopausal, Post Menopausal, Premenarche, Abnormal Vaginal Bleeding, Dysmenorrhea, Other - Musculoskeletal Musculoskeletal: As Per HPI - Integumentary Integumentary: As Per HPI, Skin Pain, Wounds - Neurological Neurological: absent: As Per HPI, Abnormal Gait, Abnormal Hearing, Abnormal Movements, Abnormal Speech, Behavioral Changes, Burning Sensations, Confusion, Convulsions, Disequilibrium, Dizziness, Numbness, Focal Weakness, Frequent Falls , Headaches, Lack of Coordination, Loss of Vision, Memory Loss, Paresthesias, Radicular Pain, Restless Legs, Sensory Deficit, Syncope, Tingling, Tremor, Vertigo, Weakness, Other Visual Disturbances, Other - Psychiatric Psychiatric: absent: As Per HPI, Abnormal Sleep Pattern, Anhedonia, Anxiety, Auditory Hallucinations, Behavioral Changes, Change in Appetite, Change in Libido, Confusion, Depression, Difficulty Concentrating, Hallucinations, Homicidal Ideation, Hopelessness, Irritability, Memory Loss, Mood Swings, Panic Attacks, Paranoia, Suicidal Ideation, Visual Hallucinations, Tactile Hallucinations, Other - Endocrine Endocrine: absent: As Per HPI, Change in Body Appearance, Change in Libido, Cold Intolorance, Deepening of Voice, Excessive Sweating, Fatigue, Flushing, Heat Intolorance, Increase in Ring/Shoe/Hat Size, Palpitations, Polydipsia, Polyphagia, Polyuria, Other - Hematologic/Lymphatic Hematologic: absent: As Per HPI, Easy Bleeding, Easy Bruising, Lymphadenopathy, Other Past Patient History - Infectious Disease Hx of Infectious Diseases: None - Past Medical History & Family History Past Medical History?: Yes - Past Social History Smoking Status: Never Smoked - CARDIAC Hx Hypertension: Yes - PULMONARY Hx Asthma: Yes - NEUROLOGICAL Hx Neurological Disorder: No - HEENT Hx HEENT Problems: No - RENAL Hx Chronic Kidney Disease: No - ENDOCRINE/METABOLIC Hx Endocrine Disorders: No - HEMATOLOGICAL/ONCOLOGICAL Hx Anemia: Yes - INTEGUMENTARY Hx Dermatological Problems: No - MUSCULOSKELETAL/RHEUMATOLOGICAL Hx Arthritis: Yes - GASTROINTESTINAL Hx Bowel Surgery: Yes Other/Comment: COLON CANCER STAGE 4 WITH CHEMOTHERAPY, last chemo was September 2016. R side port a cath - GENITOURINARY/GYNECOLOGICAL Hx Genitourinary Disorders: No - PSYCHIATRIC Hx Anxiety: Yes Hx Bipolar Disorder: Yes Hx Depression: Yes Hx Schizophrenia: Yes Hx Substance Use: Yes - SURGICAL HISTORY Hx Surgeries: Yes (SEE COMMENT) Hx Orthopedic Surgery: Yes (left knee) Hx Vascular Access Device: Yes (RIGHT SUBCLAVIAN) Other/Comment: colon cancer surgery april 2014 to remove tumor, rt side subclavian Port - ANESTHESIA Hx Anesthesia: Yes Hx Anesthesia Reactions: No Meds Allergies/Adverse Reactions: Allergies Allergy/AdvReac Type Severity Reaction Status Date / Time No Known Allergies Allergy Verified 05/02/17 13:38 - Medications Medications: Current Medications Aspirin (Aspirin) 325 mg PO DAILY [facility] Last Admin: 05/03/17 10:47 Dose: 325 mg Clonazepam (Klonopin) 2 mg PO TID [facility] Last Admin: 05/03/17 17:51 Dose: 2 mg Duloxetine HCl (Cymbalta) 60 mg PO DAILY [facility] Last Admin: 05/03/17 10:43 Dose: 60 mg Escitalopram Oxalate (Lexapro) 20 mg PO DAILY [facility] Last Admin: 05/03/17 10:44 Dose: 20 mg Piperacillin Sod/Tazobactam Sod (Zosyn 3.375 In Ns 100ml) 100 mls @ 200 mls/hr IVPB DAILY [facility] PRN Reason: Protocol Vancomycin/Sodium Chloride (Vancomycin 1 Gm/Ns 200 Ml) 1 gm in 200 mls @ 133.333 mls/hr IVPB Q24H [facility] PRN Reason: Protocol Stop: 05/08/17 15:31 Last Admin: 05/03/17 15:43 Dose: 133.333 mls/hr Ibuprofen (Motrin Tab) 800 mg PO Q6 PRN PRN Reason: Pain, moderate (4-7) Oxycodone HCl (Oxycodone Immediate Release Tab) 15 mg PO Q3H PRN PRN Reason: Pain, moderate (4-7) Last Admin: 05/03/17 10:48 Dose: 15 mg Pantoprazole Sodium (Protonix Ec Tab) 40 mg PO DAILY [facility] Last Admin: 05/03/17 10:44 Dose: 40 mg Risperidone (Risperdal Tab) 2 mg PO BID [facility] Last Admin: 05/03/17 17:51 Dose: 2 mg Trazodone HCl (Desyrel) 50 mg PO HS [facility] Last Admin: 05/02/17 21:54 Dose: 50 mg Zolpidem Tartrate (Ambien) 10 mg PO HS [facility] Last Admin: 05/02/17 21:54 Dose: 10 mg Physical Exam - Constitutional Appears: Non-toxic, Chronically Ill - Head Exam Head Exam: NORMOCEPHALIC - Eye Exam Eye Exam: PERRL. absent: Scleral icterus - ENT Exam ENT Exam: Mucous Membranes Dry, Normal External Ear Exam - Neck Exam Neck exam: Negative for: Lymphadenopathy - Respiratory Exam Respiratory Exam: Decreased Breath Sounds, Clear to Auscultation Bilateral - Cardiovascular Exam Cardiovascular Exam: REGULAR RHYTHM, +S1, +S2 - GI/Abdominal Exam GI & Abdominal Exam: Diminished Bowel Sounds, Soft. absent: Guarding, Rebound, Rigid, Tenderness - Rectal Exam Rectal Exam: Deferred - Exam Exam: NORMAL INSPECTION - Extremities Exam Extremities exam: Positive for: tenderness, pedal pulses present. Negative for : calf tenderness, pedal edema Additional comments: cellulitis left leg at TKR site with redness but no pus Positive tenderness - Back Exam Back exam: absent: CVA tenderness (L), CVA tenderness (R) - Neurological Exam Neurological exam: Alert, CN II-XII Intact, Oriented x3, Reflexes Normal - Psychiatric Exam Psychiatric exam: Normal Mood - Skin Skin Exam: Dry, Intact Results - Vital Signs Recent Vital Signs: Last Vital Signs Temp 97.9 F 05/03/17 15:25 Pulse 83 05/03/17 15:25 Resp 20 05/03/17 15:25 BP 121/87 05/03/17 15:25 Pulse Ox 98 05/03/17 15:25 - Labs Result Diagrams: 05/02/17 14:34 05/02/17 14:34 - Imaging and Cardiology Chest x-ray Status: Image reviewed by me Assessment & Plan (1) Total knee replacement status Status: Acute (2) Cellulitis of left knee Status: Acute (3) Colon cancer metastasized to liver Status: Acute - Assessment and Plan (Free Text) Assessment: severe cellulitis cannot r/o septic arthritis consider ortho consult rx as septic arthritis unless proven otherwise
--- NOTE | 2017-05-03 19:23 | CP.PCM.PN ---
Subjective - Date & Time of Evaluation Date of Evaluation: 05/03/17 Time of Evaluation: 09:20 - Subjective Subjective: clinically same Objective - Vital Signs/Intake and Output Vital Signs (last 24 hours): Temp Pulse Resp BP Pulse Ox 97.9 F 83 20 121/87 98 05/03/17 15:25 05/03/17 15:25 05/03/17 15:25 05/03/17 15:25 05/03/17 15:25 - Medications Medications: Current Medications Aspirin (Aspirin) 325 mg PO DAILY [facility] Last Admin: 05/03/17 10:47 Dose: 325 mg Clonazepam (Klonopin) 2 mg PO TID [facility] Last Admin: 05/03/17 17:51 Dose: 2 mg Duloxetine HCl (Cymbalta) 60 mg PO DAILY [facility] Last Admin: 05/03/17 10:43 Dose: 60 mg Escitalopram Oxalate (Lexapro) 20 mg PO DAILY [facility] Last Admin: 05/03/17 10:44 Dose: 20 mg Vancomycin/Sodium Chloride (Vancomycin 1 Gm/Ns 200 Ml) 1 gm in 200 mls @ 166.6 mls/hr IVPB Q12H [facility] PRN Reason: Protocol Stop: 05/09/17 04:01 Piperacillin Sod/Tazobactam Sod (Zosyn 3.375 Gm Iv Premix) 3.375 gm in 50 mls @ 100 mls/hr IVPB Q8H [facility] PRN Reason: Protocol Ibuprofen (Motrin Tab) 800 mg PO Q6 PRN PRN Reason: Pain, moderate (4-7) Oxycodone HCl (Oxycodone Immediate Release Tab) 15 mg PO Q3H PRN PRN Reason: Pain, moderate (4-7) Last Admin: 05/03/17 10:48 Dose: 15 mg Pantoprazole Sodium (Protonix Ec Tab) 40 mg PO DAILY [facility] Last Admin: 05/03/17 10:44 Dose: 40 mg Risperidone (Risperdal Tab) 2 mg PO BID [facility] Last Admin: 05/03/17 17:51 Dose: 2 mg Trazodone HCl (Desyrel) 50 mg PO HS [facility] Last Admin: 05/02/17 21:54 Dose: 50 mg Zolpidem Tartrate (Ambien) 10 mg PO HS [facility] Last Admin: 05/02/17 21:54 Dose: 10 mg - Labs Labs: 05/02/17 14:34 05/02/17 14:34
[2017-05-03] MEDS ORDERED: Potassium Chloride 20 mEq ER Tab PO ONE (22:30)
[2017-05-03] MEDS: Piperacill/Tazo 3.375gm in Dex 3.375 GM/50 ML BAG IVPB SCH (22:50)
[2017-05-04] MEDS: Vancomycin 1 gm/NS 200 ml 1 GM/200 ML BAG IVPB SCH ×2 (03:19→17:32)
[2017-05-04] MEDS: Piperacill/Tazo 3.375gm in Dex 3.375 GM/50 ML BAG IVPB SCH ×3 (06:04→22:21)
[2017-05-04] MEDS: oxyCODONE 5 mg Immediate Release Tab PO PRN ×2 (06:14→22:31)
[2017-05-04] MEDS: Pantoprazole 40 mg EC Tab PO SCH (09:22)
--- NOTE | 2017-05-04 11:41 | CARD ---
APPROVED REPORT EKG Measurement Heart [id number] <Conclusion> Normal sinus rhythm Poor R wave progression - may be normal variant Borderline ECG
--- NOTE | 2017-05-04 17:50 | CP.PCM.PN ---
Subjective - Date & Time of Evaluation Date of Evaluation: 05/04/17 Time of Evaluation: 10:40 - Subjective Subjective: clinically same Objective - Vital Signs/Intake and Output Vital Signs (last 24 hours): Temp Pulse Resp BP Pulse Ox 97.5 F L 75 20 115/73 95 05/04/17 08:46 05/04/17 08:46 05/04/17 08:46 05/04/17 08:46 05/04/17 08:46 Intake and Output: 05/04/17 05/04/17 06:59 18:59 Intake Total 300 Balance 300 - Medications Medications: Current Medications Aspirin (Aspirin) 325 mg PO DAILY [facility] Last Admin: 05/04/17 09:22 Dose: 325 mg Clonazepam (Klonopin) 2 mg PO TID [facility] Last Admin: 05/04/17 17:28 Dose: 2 mg Duloxetine HCl (Cymbalta) 60 mg PO DAILY [facility] Last Admin: 05/04/17 09:22 Dose: 60 mg Escitalopram Oxalate (Lexapro) 20 mg PO DAILY [facility] Last Admin: 05/04/17 09:23 Dose: 20 mg Vancomycin/Sodium Chloride (Vancomycin 1 Gm/Ns 200 Ml) 1 gm in 200 mls @ 166.6 mls/hr IVPB Q12H [facility] PRN Reason: Protocol Stop: 05/09/17 04:01 Last Admin: 05/04/17 17:32 Dose: 166.6 mls/hr Piperacillin Sod/Tazobactam Sod (Zosyn 3.375 Gm Iv Premix) 3.375 gm in 50 mls @ 100 mls/hr IVPB Q8H [facility] PRN Reason: Protocol Last Admin: 05/04/17 14:56 Dose: 100 mls/hr Ibuprofen (Motrin Tab) 800 mg PO Q6 PRN PRN Reason: Pain, moderate (4-7) Oxycodone HCl (Oxycodone Immediate Release Tab) 15 mg PO Q3H PRN PRN Reason: Pain, moderate (4-7) Last Admin: 05/04/17 06:14 Dose: 15 mg Pantoprazole Sodium (Protonix Ec Tab) 40 mg PO DAILY [facility] Last Admin: 05/04/17 09:22 Dose: 40 mg Risperidone (Risperdal Tab) 2 mg PO BID [facility] Last Admin: 05/04/17 17:28 Dose: 2 mg Trazodone HCl (Desyrel) 50 mg PO [facility] Last Admin: 05/03/17 21:32 Dose: 50 mg Zolpidem Tartrate (Ambien) 10 mg PO [facility] Last Admin: 05/03/17 21:32 Dose: 10 mg - Labs Labs: 05/02/17 14:34 05/02/17 14:34 - Constitutional Appears: Well - Head Exam Head Exam: ATRAUMATIC, NORMAL INSPECTION, NORMOCEPHALIC - Eye Exam Eye Exam: EOMI, Normal appearance, PERRL Pupil Exam: NORMAL ACCOMODATION, PERRL - ENT Exam ENT Exam: Mucous Membranes Moist, Normal Exam - Neck Exam Neck Exam: Full ROM, Normal Inspection. absent: Lymphadenopathy - Respiratory Exam Respiratory Exam: Decreased Breath Sounds - Cardiovascular Exam Cardiovascular Exam: REGULAR RHYTHM, +S1, +S2 - GI/Abdominal Exam GI & Abdominal Exam: Soft, Diminished Bowel Sounds - Rectal Exam Rectal Exam: Deferred Assessment and Plan - Assessment and Plan (Free Text) Plan: IV antibiotic ID consult KCl supplementation PTOT Continue same Follow-up with Dr. guerrero As ordered
[2017-05-05] MEDS: Vancomycin 1 gm/NS 200 ml 1 GM/200 ML BAG IVPB SCH ×2 (04:21→15:04)
[2017-05-05] MEDS: Piperacill/Tazo 3.375gm in Dex 3.375 GM/50 ML BAG IVPB SCH ×2 (06:21→14:03)
[2017-05-05 07:40] LABS: BASO % 0.4 % (0.0-2.0); HEMOGLOBIN 10.1 g/dL (11.0-16.0); LYMPH # 1.1 K/uL (1.0-4.3); LYMPH % 27.8 % (20.0-40.0); MEAN CORPUSCULAR HEMOGLOBIN 24.3 pg (27.0-31.0); MEAN CORPUSCULAR HGB CONC 32.4 g/dL (33.0-37.0); MEAN PLATELET VOLUME 8.6 fL (7.2-11.7); MONO # 0.3 K/uL (0.0-0.8); MONO % 7.1 % (0.0-10.0); NEUT # 2.6 K/uL (1.8-7.0); NEUT % 63.7 % (50.0-75.0); NRBC % 0.1 % (0.0-2.0); RBC 4.16 Mil/uL (3.80-5.20); RED CELL DISTRIBUTION WIDTH 17.6 % (11.5-14.5); WHITE BLOOD COUNT 4.1 K/uL (4.8-10.8)
[2017-05-05 08:14] LABS: ALB/GLOB RATIO 1.1 (1.0-2.1); ALBUMIN 3.5 g/dL (3.5-5.0); ALT/SGPT 27 U/L (9-52); AST/SGOT 29 U/L (14-36); BLOOD UREA NITROGEN 10 mg/dL (7-17); CALCIUM 8.6 mg/dl (8.6-10.4); GFR AFRICAN-AMERICAN > 60; GFR NON-AFRICAN AMERICAN > 60
[2017-05-05] MEDS: Pantoprazole 40 mg EC Tab PO SCH (10:07)
[2017-05-05] MEDS: oxyCODONE 5 mg Immediate Release Tab PO PRN ×2 (13:11→20:22)
--- NOTE | 2017-05-05 16:02 | CP.PCM.PN ---
Subjective - Date & Time of Evaluation Date of Evaluation: 05/05/17 Time of Evaluation: 07:00 - Subjective Subjective: 46-year-old female came in to ER via EMS for evaluation of left knee pain. Patient had a left total knee replacement on 04/05 at [facility] [place] She reports that she has been cleaning her incision site properly but her knee has progressively worsened over the past week. She states movement and ambulation makes the pain worse. she was seen by her primary ortho surgeon, Dr. Car, 2 weeks ago. Does report chills, no fevers. No chest pain, no SOB. No sick contacts. ID requested for antibiotic management Objective - Vital Signs/Intake and Output Vital Signs (last 24 hours): Temp Pulse Resp BP Pulse Ox 97.7 F 78 18 106/72 96 05/05/17 15:36 05/05/17 15:36 05/05/17 15:36 05/05/17 15:36 05/05/17 15:36 Intake and Output: 05/05/17 05/05/17 06:59 18:59 Intake Total Balance - Medications Medications: Current Medications Aspirin (Aspirin) 325 mg PO DAILY [facility] Last Admin: 05/05/17 10:07 Dose: 325 mg Clonazepam (Klonopin) 2 mg PO TID [facility] Last Admin: 05/05/17 14:04 Dose: 2 mg Duloxetine HCl (Cymbalta) 60 mg PO DAILY [facility] Last Admin: 05/05/17 10:07 Dose: 60 mg Escitalopram Oxalate (Lexapro) 20 mg PO DAILY [facility] Last Admin: 05/05/17 10:07 Dose: 20 mg Vancomycin/Sodium Chloride (Vancomycin 1 Gm/Ns 200 Ml) 1 gm in 200 mls @ 166.6 mls/hr IVPB Q12H [facility] PRN Reason: Protocol Stop: 05/09/17 04:01 Last Admin: 05/05/17 15:04 Dose: 166.6 mls/hr Piperacillin Sod/Tazobactam Sod (Zosyn 3.375 Gm Iv Premix) 3.375 gm in 50 mls @ 100 mls/hr IVPB Q8H [facility] PRN Reason: Protocol Last Admin: 05/05/17 14:03 Dose: 100 mls/hr Ibuprofen (Motrin Tab) 800 mg PO Q6 PRN PRN Reason: Pain, moderate (4-7) Oxycodone HCl (Oxycodone Immediate Release Tab) 15 mg PO Q3H PRN PRN Reason: Pain, moderate (4-7) Last Admin: 05/05/17 13:11 Dose: 15 mg Pantoprazole Sodium (Protonix Ec Tab) 40 mg PO DAILY [facility] Last Admin: 05/05/17 10:07 Dose: 40 mg Risperidone (Risperdal Tab) 2 mg PO BID [facility] Last Admin: 05/05/17 10:07 Dose: 2 mg Trazodone HCl (Desyrel) 50 mg PO [facility] Last Admin: 05/04/17 22:21 Dose: 50 mg Zolpidem Tartrate (Ambien) 10 mg PO [facility] Last Admin: 05/04/17 22:21 Dose: 10 mg - Labs Labs: 05/05/17 07:25 05/05/17 07:25 - Constitutional Appears: Non-toxic, Chronically Ill - Head Exam Head Exam: NORMOCEPHALIC - Eye Exam Eye Exam: PERRL - ENT Exam ENT Exam: Mucous Membranes Dry - Neck Exam Neck Exam: absent: Lymphadenopathy - Respiratory Exam Respiratory Exam: Decreased Breath Sounds - Cardiovascular Exam Cardiovascular Exam: REGULAR RHYTHM - GI/Abdominal Exam GI & Abdominal Exam: Distended, Soft - Rectal Exam Rectal Exam: Deferred - Exam Exam: NORMAL INSPECTION - Extremities Exam Extremities Exam: absent: Calf Tenderness, Pedal Edema, Tenderness Additional comments: left knee less red/ less tender - Back Exam Back Exam: absent: CVA tenderness (L), CVA tenderness (R) - Neurological Exam Neurological Exam: Alert, Awake, Oriented x3 - Psychiatric Exam Psychiatric exam: Normal Mood - Skin Skin Exam: Dry Assessment and Plan (1) Total knee replacement status Status: Acute (2) Cellulitis of left knee Status: Acute (3) Colon cancer metastasized to liver Status: Acute - Assessment and Plan (Free Text) Assessment: improving cont rx
--- NOTE | 2017-05-05 16:17 | CP.PCM.PN ---
Subjective - Date & Time of Evaluation Date of Evaluation: 05/05/17 Time of Evaluation: 11:50 - Subjective Subjective: clinically same Objective - Vital Signs/Intake and Output Vital Signs (last 24 hours): Temp Pulse Resp BP Pulse Ox 97.7 F 78 18 106/72 96 05/05/17 15:36 05/05/17 15:36 05/05/17 15:36 05/05/17 15:36 05/05/17 15:36 Intake and Output: 05/05/17 05/05/17 06:59 18:59 Intake Total Balance - Medications Medications: Current Medications Aspirin (Aspirin) 325 mg PO DAILY [facility] Last Admin: 05/05/17 10:07 Dose: 325 mg Clonazepam (Klonopin) 2 mg PO TID [facility] Last Admin: 05/05/17 14:04 Dose: 2 mg Duloxetine HCl (Cymbalta) 60 mg PO DAILY [facility] Last Admin: 05/05/17 10:07 Dose: 60 mg Escitalopram Oxalate (Lexapro) 20 mg PO DAILY [facility] Last Admin: 05/05/17 10:07 Dose: 20 mg Cefazolin Sodium 2,000 mg/ (Sodium Chloride) 50 mls @ 100 mls/hr IVPB Q8H [facility] PRN Reason: Protocol Ibuprofen (Motrin Tab) 800 mg PO Q6 PRN PRN Reason: Pain, moderate (4-7) Oxycodone HCl (Oxycodone Immediate Release Tab) 15 mg PO Q3H PRN PRN Reason: Pain, moderate (4-7) Last Admin: 05/05/17 13:11 Dose: 15 mg Pantoprazole Sodium (Protonix Ec Tab) 40 mg PO DAILY [facility] Last Admin: 05/05/17 10:07 Dose: 40 mg Risperidone (Risperdal Tab) 2 mg PO BID [facility] Last Admin: 05/05/17 10:07 Dose: 2 mg Trazodone HCl (Desyrel) 50 mg PO HS [facility] Last Admin: 05/04/17 22:21 Dose: 50 mg Zolpidem Tartrate (Ambien) 10 mg PO HS [facility] Last Admin: 05/04/17 22:21 Dose: 10 mg - Labs Labs: 05/05/17 07:25 05/05/17 07:25 - Constitutional Appears: Well - Head Exam Head Exam: ATRAUMATIC, NORMAL INSPECTION, NORMOCEPHALIC - Eye Exam Eye Exam: EOMI, Normal appearance, PERRL Pupil Exam: NORMAL ACCOMODATION, PERRL - ENT Exam ENT Exam: Mucous Membranes Moist, Normal Exam - Neck Exam Neck Exam: Full ROM, Normal Inspection. absent: Lymphadenopathy - Respiratory Exam Respiratory Exam: Decreased Breath Sounds - Cardiovascular Exam Cardiovascular Exam: REGULAR RHYTHM, +S1, +S2 - GI/Abdominal Exam GI & Abdominal Exam: Soft, Diminished Bowel Sounds - Rectal Exam Rectal Exam: Deferred
[2017-05-06] MEDS: Pantoprazole 40 mg EC Tab PO SCH (09:52)
--- NOTE | 2017-05-06 12:14 | CP.PCM.PN ---
Subjective - Date & Time of Evaluation Date of Evaluation: 05/06/17 Time of Evaluation: 09:00 - Subjective Subjective: afeb on ancef iv rx renewed cellulitis less Objective - Vital Signs/Intake and Output Vital Signs (last 24 hours): Temp Pulse Resp BP Pulse Ox 97.5 F L 74 20 112/76 95 05/06/17 08:42 05/06/17 08:42 05/06/17 08:42 05/06/17 08:42 05/06/17 08:42 Intake and Output: 05/06/17 05/06/17 06:59 18:59 Intake Total 290 Balance 290 - Medications Medications: Current Medications Aspirin (Aspirin) 325 mg PO DAILY [facility] Last Admin: 05/06/17 09:52 Dose: 325 mg Clonazepam (Klonopin) 2 mg PO TID [facility] Last Admin: 05/06/17 09:52 Dose: 2 mg Duloxetine HCl (Cymbalta) 60 mg PO DAILY [facility] Last Admin: 05/06/17 09:52 Dose: 60 mg Escitalopram Oxalate (Lexapro) 20 mg PO DAILY [facility] Last Admin: 05/06/17 09:52 Dose: 20 mg Cefazolin Sodium 2,000 mg/ (Sodium Chloride) 50 mls @ 100 mls/hr IVPB Q8H [facility] PRN Reason: Protocol Last Admin: 05/06/17 10:56 Dose: 100 mls/hr Ibuprofen (Motrin Tab) 800 mg PO Q6 PRN PRN Reason: Pain, moderate (4-7) Oxycodone HCl (Oxycodone Immediate Release Tab) 15 mg PO Q3H [facility] PRN Reason: Pain, moderate (4-7) Last Admin: 05/05/17 20:22 Dose: 15 mg Pantoprazole Sodium (Protonix Ec Tab) 40 mg PO DAILY [facility] Last Admin: 05/06/17 09:52 Dose: 40 mg Risperidone (Risperdal Tab) 2 mg PO BID [facility] Last Admin: 05/06/17 09:52 Dose: 2 mg Trazodone HCl (Desyrel) 50 mg PO HS [facility] Last Admin: 05/05/17 22:08 Dose: 50 mg Zolpidem Tartrate (Ambien) 10 mg PO HS [facility] Last Admin: 05/05/17 22:07 Dose: 10 mg - Labs Labs: 05/05/17 07:25 05/05/17 07:25 - Constitutional Appears: Non-toxic, Chronically Ill - Head Exam Head Exam: NORMOCEPHALIC - Eye Exam Eye Exam: PERRL. absent: Scleral icterus - ENT Exam ENT Exam: Mucous Membranes Dry, Normal External Ear Exam - Neck Exam Neck Exam: absent: Lymphadenopathy - Respiratory Exam Respiratory Exam: Decreased Breath Sounds - Cardiovascular Exam Cardiovascular Exam: REGULAR RHYTHM - GI/Abdominal Exam GI & Abdominal Exam: Distended, Soft Assessment and Plan (1) Total knee replacement status Status: Acute (2) Cellulitis of left knee Status: Acute (3) Colon cancer metastasized to liver Status: Acute
--- NOTE | 2017-05-06 16:07 | CP.PCM.CON ---
History of Present Illness - History of Present Illness History of Present Illness: Ortho consultation Dr. Obando 46F 1 month s/p left TKR Dr. Car complains of increased left knee pain and drainage of pus from knee 1 week prior to admission. She was last seen [address] Car and had no complications at that time. She denies any trauma or falls. She admitted to cocaine use 1 day prior to admission. She has been ambulating with cane and attending PT as outpt. No bleeding/bruising/CP/SOB /dizziness/numbness/tingling/n/v. Pain is improving since she has been in hospital. Review of Systems - Review of Systems All systems: reviewed and no additional remarkable complaints except - Constitutional Additional comments: no fever chills - Respiratory Respiratory: As Per HPI - Gastrointestinal Gastrointestinal: As Per HPI - Musculoskeletal Musculoskeletal: As Per HPI - Integumentary Integumentary: As Per HPI - Neurological Neurological: As Per HPI - Hematologic/Lymphatic Hematologic: As Per HPI Past Patient History - Infectious Disease Hx of Infectious Diseases: None - Past Medical History & Family History Past Medical History?: Yes Past Family History: Reviewed and not pertinent - Past Social History Smoking Status: Never Smoked Drugs: Cocaine - CARDIAC Hx Hypertension: Yes - PULMONARY Hx Asthma: Yes - NEUROLOGICAL Hx Neurological Disorder: No - HEENT Hx HEENT Problems: No - RENAL Hx Chronic Kidney Disease: No - ENDOCRINE/METABOLIC Hx Endocrine Disorders: No - HEMATOLOGICAL/ONCOLOGICAL Hx Anemia: Yes - INTEGUMENTARY Hx Dermatological Problems: No - MUSCULOSKELETAL/RHEUMATOLOGICAL Hx Arthritis: Yes (osteoarthritis) Hx Falls: No Hx Rheumatoid Arthritis: Yes - GASTROINTESTINAL Hx Bowel Surgery: Yes Other/Comment: COLON CANCER STAGE 4 WITH CHEMOTHERAPY, last chemo was September 2016. R side port a cath - GENITOURINARY/GYNECOLOGICAL Hx Genitourinary Disorders: No - PSYCHIATRIC Hx Anxiety: Yes Hx Bipolar Disorder: Yes Hx Depression: Yes Hx Schizophrenia: Yes Hx Substance Use: Yes - SURGICAL HISTORY Hx Surgeries: Yes (SEE COMMENT) Hx Orthopedic Surgery: Yes (left knee) Hx Vascular Access Device: Yes (RIGHT SUBCLAVIAN) Other/Comment: colon cancer surgery april 2014 to remove tumor, rt side subclavian Port - ANESTHESIA Hx Anesthesia: Yes Hx Anesthesia Reactions: No Meds Allergies/Adverse Reactions: Allergies Allergy/AdvReac Type Severity Reaction Status Date / Time No Known Allergies Allergy Verified 05/02/17 13:38 - Medications Medications: Current Medications Aspirin (Aspirin) 325 mg PO DAILY [facility] Last Admin: 05/06/17 09:52 Dose: 325 mg Clonazepam (Klonopin) 2 mg PO TID [facility] Last Admin: 05/06/17 13:35 Dose: 2 mg Duloxetine HCl (Cymbalta) 60 mg PO DAILY [facility] Last Admin: 05/06/17 09:52 Dose: 60 mg Escitalopram Oxalate (Lexapro) 20 mg PO DAILY [facility] Last Admin: 05/06/17 09:52 Dose: 20 mg Cefazolin Sodium 2,000 mg/ (Sodium Chloride) 50 mls @ 100 mls/hr IVPB Q8H [facility] PRN Reason: Protocol Last Admin: 05/06/17 10:56 Dose: 100 mls/hr Ibuprofen (Motrin Tab) 800 mg PO Q6 PRN PRN Reason: Pain, moderate (4-7) Oxycodone HCl (Oxycodone Immediate Release Tab) 15 mg PO Q3H PRN PRN Reason: Pain, moderate (4-7) Last Admin: 05/05/17 20:22 Dose: 15 mg Pantoprazole Sodium (Protonix Ec Tab) 40 mg PO DAILY [facility] Last Admin: 05/06/17 09:52 Dose: 40 mg Risperidone (Risperdal Tab) 2 mg PO BID [facility] Last Admin: 05/06/17 09:52 Dose: 2 mg Trazodone HCl (Desyrel) 50 mg PO [facility] Last Admin: 05/05/17 22:08 Dose: 50 mg Zolpidem Tartrate (Ambien) 10 mg PO [facility] Last Admin: 05/05/17 22:07 Dose: 10 mg Physical Exam - Constitutional Appears: Well, No Acute Distress - Head Exam Head Exam: ATRAUMATIC - Neck Exam Neck exam: Positive for: Full Rom, Normal Inspection - Respiratory Exam Respiratory Exam: NORMAL BREATHING PATTERN - Cardiovascular Exam Additional comments: +DP/PT pulses - Extremities Exam Extremities exam: Positive for: pedal pulses present - Neurological Exam Neurological exam: Alert, Oriented x3 - Psychiatric Exam Psychiatric exam: Normal Mood - Skin Skin Exam: Erythema, Warm Additional comments: Left knee: incisional erythema with localized area of swelling under scab. Dry, no drainage. No erythema to rest of knee, mild pain only on knee ROM as expected , calves soft NT neg homans Results - Vital Signs Recent Vital Signs: Last Vital Signs Temp 97.5 F L 05/06/17 08:42 Pulse 74 05/06/17 08:42 Resp 20 05/06/17 08:42 BP 112/76 05/06/17 08:42 Pulse Ox 95 05/06/17 08:42 - Labs Result Diagrams: 05/05/17 07:25 05/05/17 07:25 - Impressions Impression: Patient Name / ID : PELON CRUZ / [id number] Exam Date : 05/02/2017 14:11:40 ( Approved ) Study Comment : Sex / Age : F / 46Y Creator : Tamir Baeza MD Dictator : Tamir Bazea MD Platform Attendant : Item Repair Manager : Tamir Baeza MD Approver2 : Report Date : 05/02/2017 14:29:24 My Comment : PROCEDURE: Left Knee Radiographs. HISTORY: Pain. COMPARISON: Left knee radiographs 12/18/2016. FINDINGS: BONES: No fracture or destructive bony lesion appreciable. JOINTS: No subluxation or dislocation appreciated status post total knee replacement with hardware in good apparent position in the interval. Fluid is seen in the suprasellar bursa at this time. Soft tissues are otherwise unremarkable appear JOINT EFFUSION: As above. OTHER FINDINGS: As above. IMPRESSION: Status post interval total knee replacement with hardware as discussed above. No interval fracture, subluxation or dislocation. Suprasellar bursa effusion is suggested. Assessment & Plan (1) Total knee replacement status Assessment and Plan: incisional erythema noted with local cellulitis, at this time no clinical suspicion of deep infection recommend d/c home with PO antibiotics and follow up with Dr. Car in office day of discharge or at latest day after discharge return to ER if worsening on PO antibiotics PT/OT ordered, continue WBAT with cane d/w Dr. Obando, agrees with above Status: Acute
[2017-05-06] MEDS: oxyCODONE 5 mg Immediate Release Tab PO PRN (16:50)
--- NOTE | 2017-05-06 18:02 | CP.PCM.PN ---
Subjective - Date & Time of Evaluation Date of Evaluation: 05/06/17 Time of Evaluation: 12:30 - Subjective Subjective: Clinically same Objective - Vital Signs/Intake and Output Vital Signs (last 24 hours): Temp Pulse Resp BP Pulse Ox 98 F 71 18 115/77 97 05/06/17 15:50 05/06/17 15:50 05/06/17 15:50 05/06/17 15:50 05/06/17 15:50 Intake and Output: 05/06/17 05/06/17 06:59 18:59 Intake Total 290 Balance 290 - Medications Medications: Current Medications Aspirin (Aspirin) 325 mg PO DAILY [facility] Last Admin: 05/06/17 09:52 Dose: 325 mg Clonazepam (Klonopin) 2 mg PO TID [facility] Last Admin: 05/06/17 17:37 Dose: 2 mg Duloxetine HCl (Cymbalta) 60 mg PO DAILY [facility] Last Admin: 05/06/17 09:52 Dose: 60 mg Escitalopram Oxalate (Lexapro) 20 mg PO DAILY [facility] Last Admin: 05/06/17 09:52 Dose: 20 mg Cefazolin Sodium 2,000 mg/ (Sodium Chloride) 50 mls @ 100 mls/hr IVPB Q8H [facility] PRN Reason: Protocol Last Admin: 05/06/17 16:52 Dose: 100 mls/hr Ibuprofen (Motrin Tab) 800 mg PO Q6 PRN PRN Reason: Pain, moderate (4-7) Oxycodone HCl (Oxycodone Immediate Release Tab) 15 mg PO Q3H PRN PRN Reason: Pain, moderate (4-7) Last Admin: 05/06/17 16:50 Dose: 15 mg Pantoprazole Sodium (Protonix Ec Tab) 40 mg PO DAILY [facility] Last Admin: 05/06/17 09:52 Dose: 40 mg Risperidone (Risperdal Tab) 2 mg PO BID [facility] Last Admin: 05/06/17 09:52 Dose: 2 mg Trazodone HCl (Desyrel) 50 mg PO HS [facility] Last Admin: 05/05/17 22:08 Dose: 50 mg Zolpidem Tartrate (Ambien) 10 mg PO HS [facility] Last Admin: 05/05/17 22:07 Dose: 10 mg - Labs Labs: 05/05/17 07:25 05/05/17 07:25 - Head Exam Head Exam: ATRAUMATIC, NORMAL INSPECTION, NORMOCEPHALIC - Eye Exam Eye Exam: EOMI, Normal appearance, PERRL Pupil Exam: NORMAL ACCOMODATION, PERRL - ENT Exam ENT Exam: Mucous Membranes Moist, Normal Exam - Neck Exam Neck Exam: Full ROM, Normal Inspection. absent: Lymphadenopathy - Respiratory Exam Respiratory Exam: Decreased Breath Sounds - Cardiovascular Exam Cardiovascular Exam: REGULAR RHYTHM, +S1, +S2 - GI/Abdominal Exam GI & Abdominal Exam: Soft, Diminished Bowel Sounds - Rectal Exam Rectal Exam: Deferred
[2017-05-07 06:30] LABS: BASO % 0.5 % (0.0-2.0); EOS % 0.9 % (0.0-4.0); HEMOGLOBIN 10.1 g/dL (11.0-16.0); LYMPH # 1.1 K/uL (1.0-4.3); LYMPH % 28.6 % (20.0-40.0); MEAN CELL VOLUME 75.2 fL (81.0-99.0); MEAN CORPUSCULAR HEMOGLOBIN 24.4 pg (27.0-31.0); MEAN CORPUSCULAR HGB CONC 32.5 g/dL (33.0-37.0); MEAN PLATELET VOLUME 8.4 fL (7.2-11.7); MONO # 0.2 K/uL (0.0-0.8); MONO % 6.3 % (0.0-10.0); NEUT # 2.5 K/uL (1.8-7.0); NEUT % 63.7 % (50.0-75.0); NRBC % 0.1 % (0.0-2.0); RBC 4.14 Mil/uL (3.80-5.20); RED CELL DISTRIBUTION WIDTH 17.6 % (11.5-14.5)
[2017-05-07 06:53] LABS: BLOOD UREA NITROGEN 13 mg/dL (7-17); CALCIUM 8.7 mg/dl (8.6-10.4); GFR AFRICAN-AMERICAN > 60; GFR NON-AFRICAN AMERICAN > 60
[2017-05-07] MEDS: Pantoprazole 40 mg EC Tab PO SCH (09:29)
[2017-05-07] MEDS: oxyCODONE 5 mg Immediate Release Tab PO PRN ×2 (11:06→19:19)
--- NOTE | 2017-05-07 12:38 | CP.PCM.PN ---
Subjective - Date & Time of Evaluation Date of Evaluation: 05/07/17 Time of Evaluation: 09:00 - Subjective Subjective: seen by ortho no deep infection suspected iv rx in progress Objective - Vital Signs/Intake and Output Vital Signs (last 24 hours): Temp Pulse Resp BP Pulse Ox 97.8 F 83 20 124/80 95 05/07/17 08:15 05/07/17 08:15 05/07/17 08:15 05/07/17 08:15 05/07/17 08:15 Intake and Output: 05/07/17 05/07/17 06:59 18:59 Intake Total 550 Balance 550 - Medications Medications: Current Medications Aspirin (Aspirin) 325 mg PO DAILY [facility] Last Admin: 05/07/17 09:28 Dose: 325 mg Clonazepam (Klonopin) 2 mg PO TID [facility] Last Admin: 05/07/17 09:28 Dose: 2 mg Duloxetine HCl (Cymbalta) 60 mg PO DAILY [facility] Last Admin: 05/07/17 09:28 Dose: 60 mg Escitalopram Oxalate (Lexapro) 20 mg PO DAILY [facility] Last Admin: 05/07/17 09:29 Dose: 20 mg Cefazolin Sodium 2,000 mg/ (Sodium Chloride) 50 mls @ 100 mls/hr IVPB Q8H [facility] PRN Reason: Protocol Last Admin: 05/07/17 08:55 Dose: 100 mls/hr Ibuprofen (Motrin Tab) 800 mg PO Q6 PRN PRN Reason: Pain, moderate (4-7) Oxycodone HCl (Oxycodone Immediate Release Tab) 15 mg PO Q3H PRN PRN Reason: Pain, moderate (4-7) Last Admin: 05/07/17 11:06 Dose: 15 mg Pantoprazole Sodium (Protonix Ec Tab) 40 mg PO DAILY [facility] Last Admin: 05/07/17 09:29 Dose: 40 mg Risperidone (Risperdal Tab) 2 mg PO BID [facility] Last Admin: 05/07/17 09:29 Dose: 2 mg Trazodone HCl (Desyrel) 50 mg PO HS [facility] Last Admin: 05/06/17 21:48 Dose: 50 mg Zolpidem Tartrate (Ambien) 10 mg PO HS [facility] Last Admin: 05/06/17 23:52 Dose: 10 mg - Labs Labs: 05/07/17 06:14 05/07/17 06:14 - Constitutional Appears: Non-toxic, Chronically Ill - Head Exam Head Exam: NORMOCEPHALIC - Eye Exam Eye Exam: PERRL - ENT Exam ENT Exam: Mucous Membranes Dry - Neck Exam Neck Exam: absent: Lymphadenopathy - Respiratory Exam Respiratory Exam: Decreased Breath Sounds - Cardiovascular Exam Cardiovascular Exam: REGULAR RHYTHM - GI/Abdominal Exam GI & Abdominal Exam: Distended - Rectal Exam Rectal Exam: Deferred - Exam Exam: NORMAL INSPECTION - Extremities Exam Extremities Exam: absent: Pedal Edema - Back Exam Back Exam: absent: CVA tenderness (L), CVA tenderness (R) - Neurological Exam Neurological Exam: Alert, Awake, Oriented x3 - Psychiatric Exam Psychiatric exam: Normal Mood - Skin Skin Exam: Dry Assessment and Plan (1) Total knee replacement status Status: Acute (2) Cellulitis of left knee Status: Acute (3) Colon cancer metastasized to liver Status: Acute - Assessment and Plan (Free Text) Assessment: iv rx in progress possible po rx on discharge
--- NOTE | 2017-05-07 17:07 | CP.PCM.PN ---
Subjective - Date & Time of Evaluation Date of Evaluation: 05/07/17 Time of Evaluation: 10:10 - Subjective Subjective: clinically same Objective - Vital Signs/Intake and Output Vital Signs (last 24 hours): Temp Pulse Resp BP Pulse Ox 97.3 F L 84 20 110/74 96 05/07/17 15:27 05/07/17 15:27 05/07/17 15:27 05/07/17 15:27 05/07/17 15:27 Intake and Output: 05/07/17 05/07/17 06:59 18:59 Intake Total 550 Balance 550 - Medications Medications: Current Medications Aspirin (Aspirin) 325 mg PO DAILY [facility] Last Admin: 05/07/17 09:28 Dose: 325 mg Clonazepam (Klonopin) 2 mg PO TID [facility] Last Admin: 05/07/17 13:13 Dose: 2 mg Duloxetine HCl (Cymbalta) 60 mg PO DAILY [facility] Last Admin: 05/07/17 09:28 Dose: 60 mg Escitalopram Oxalate (Lexapro) 20 mg PO DAILY [facility] Last Admin: 05/07/17 09:29 Dose: 20 mg Cefazolin Sodium 2,000 mg/ (Sodium Chloride) 50 mls @ 100 mls/hr IVPB Q8H [facility] PRN Reason: Protocol Last Admin: 05/07/17 08:55 Dose: 100 mls/hr Ibuprofen (Motrin Tab) 800 mg PO Q6 PRN PRN Reason: Pain, moderate (4-7) Oxycodone HCl (Oxycodone Immediate Release Tab) 15 mg PO Q3H PRN PRN Reason: Pain, moderate (4-7) Last Admin: 05/07/17 11:06 Dose: 15 mg Pantoprazole Sodium (Protonix Ec Tab) 40 mg PO DAILY [facility] Last Admin: 05/07/17 09:29 Dose: 40 mg Risperidone (Risperdal Tab) 2 mg PO BID [facility] Last Admin: 05/07/17 09:29 Dose: 2 mg Trazodone HCl (Desyrel) 50 mg PO HS [facility] Last Admin: 05/06/17 21:48 Dose: 50 mg Zolpidem Tartrate (Ambien) 10 mg PO HS [facility] Last Admin: 05/06/17 23:52 Dose: 10 mg - Labs Labs: 05/07/17 06:14 05/07/17 06:14 - Constitutional Appears: Well - Head Exam Head Exam: ATRAUMATIC, NORMAL INSPECTION, NORMOCEPHALIC - Eye Exam Eye Exam: EOMI, Normal appearance, PERRL Pupil Exam: NORMAL ACCOMODATION, PERRL - ENT Exam ENT Exam: Mucous Membranes Moist, Normal Exam - Neck Exam Neck Exam: Full ROM, Normal Inspection. absent: Lymphadenopathy - Respiratory Exam Respiratory Exam: Decreased Breath Sounds - Cardiovascular Exam Cardiovascular Exam: REGULAR RHYTHM, +S1, +S2 - GI/Abdominal Exam GI & Abdominal Exam: Soft, Diminished Bowel Sounds - Rectal Exam Rectal Exam: Deferred Assessment and Plan - Assessment and Plan (Free Text) Plan: Stitches to be removed tomorrow Redness is decreasing ID consult follow-up Continue antibiotic PTOT Follow-up with the id
--- NOTE | 2017-05-07 17:11 | CP.PCM.PN ---
Subjective - Date & Time of Evaluation Date of Evaluation: 05/07/17 Time of Evaluation: 19:35 - Subjective Subjective: Patient with no new complaints. Objective - Vital Signs/Intake and Output Vital Signs (last 24 hours): Temp Pulse Resp BP Pulse Ox 97.3 F L 84 20 110/74 96 05/07/17 15:27 05/07/17 15:27 05/07/17 15:27 05/07/17 15:27 05/07/17 15:27 Intake and Output: 05/07/17 05/07/17 06:59 18:59 Intake Total 550 Balance 550 - Medications Medications: Current Medications Aspirin (Aspirin) 325 mg PO DAILY [facility] Last Admin: 05/07/17 09:28 Dose: 325 mg Clonazepam (Klonopin) 2 mg PO TID [facility] Last Admin: 05/07/17 13:13 Dose: 2 mg Duloxetine HCl (Cymbalta) 60 mg PO DAILY [facility] Last Admin: 05/07/17 09:28 Dose: 60 mg Escitalopram Oxalate (Lexapro) 20 mg PO DAILY [facility] Last Admin: 05/07/17 09:29 Dose: 20 mg Cefazolin Sodium 2,000 mg/ (Sodium Chloride) 50 mls @ 100 mls/hr IVPB Q8H [facility] PRN Reason: Protocol Last Admin: 05/07/17 08:55 Dose: 100 mls/hr Ibuprofen (Motrin Tab) 800 mg PO Q6 PRN PRN Reason: Pain, moderate (4-7) Oxycodone HCl (Oxycodone Immediate Release Tab) 15 mg PO Q3H PRN PRN Reason: Pain, moderate (4-7) Last Admin: 05/07/17 11:06 Dose: 15 mg Pantoprazole Sodium (Protonix Ec Tab) 40 mg PO DAILY [facility] Last Admin: 05/07/17 09:29 Dose: 40 mg Risperidone (Risperdal Tab) 2 mg PO BID [facility] Last Admin: 05/07/17 09:29 Dose: 2 mg Trazodone HCl (Desyrel) 50 mg PO HS [facility] Last Admin: 05/06/17 21:48 Dose: 50 mg Zolpidem Tartrate (Ambien) 10 mg PO HS [facility] Last Admin: 05/06/17 23:52 Dose: 10 mg - Labs Labs: 05/07/17 06:14 05/07/17 06:14 - Extremities Exam Additional comments: Left knee: improved from yesterday. incisional erythema has almost resolved. No joint redness. Mild pain with ROM noted. calves soft Nt neg homans +DP/PT pulses Assessment and Plan (1) Total knee replacement status Assessment & Plan: improving again stressed to patient that she is to follow up with Dr. Car within 1 day of discharge antibtiocs as per ID recommend d/c home on PO antibtioics PT/OT d/w Dr. Obando, agrees with abvoe Status: Acute
[2017-05-08] MEDS: Pantoprazole 40 mg EC Tab PO SCH (10:38)
[2017-05-08] MEDS: oxyCODONE 5 mg Immediate Release Tab PO PRN ×2 (10:46→23:51)
--- NOTE | 2017-05-08 14:12 | CP.PCM.PN ---
Subjective - Date & Time of Evaluation Date of Evaluation: 05/08/17 Time of Evaluation: 14:11 - Subjective Subjective: Knee continues to improve. Patient tolerating PT well. No new complaints. Objective - Vital Signs/Intake and Output Vital Signs (last 24 hours): Temp Pulse Resp BP Pulse Ox 97.1 F L 81 20 114/78 98 05/08/17 08:49 05/08/17 08:49 05/08/17 08:49 05/08/17 08:49 05/08/17 08:49 - Medications Medications: Current Medications Aspirin (Aspirin) 325 mg PO DAILY [facility] Last Admin: 05/08/17 10:38 Dose: 325 mg Clonazepam (Klonopin) 2 mg PO TID [facility] Last Admin: 05/08/17 13:42 Dose: 2 mg Duloxetine HCl (Cymbalta) 60 mg PO DAILY [facility] Last Admin: 05/08/17 10:38 Dose: 60 mg Escitalopram Oxalate (Lexapro) 20 mg PO DAILY [facility] Last Admin: 05/08/17 10:38 Dose: 20 mg Cefazolin Sodium 2,000 mg/ (Sodium Chloride) 50 mls @ 100 mls/hr IVPB Q8H [facility] PRN Reason: Protocol Last Admin: 05/08/17 09:30 Dose: 100 mls/hr Ibuprofen (Motrin Tab) 800 mg PO Q6 PRN PRN Reason: Pain, moderate (4-7) Oxycodone HCl (Oxycodone Immediate Release Tab) 15 mg PO Q3H PRN PRN Reason: Pain, moderate (4-7) Last Admin: 05/08/17 10:46 Dose: 15 mg Pantoprazole Sodium (Protonix Ec Tab) 40 mg PO DAILY [facility] Last Admin: 05/08/17 10:38 Dose: 40 mg Risperidone (Risperdal Tab) 2 mg PO BID [facility] Last Admin: 05/08/17 10:39 Dose: 2 mg Trazodone HCl (Desyrel) 50 mg PO HS [facility] Last Admin: 05/07/17 22:26 Dose: 50 mg Zolpidem Tartrate (Ambien) 10 mg PO HS [facility] Last Admin: 05/07/17 22:26 Dose: 10 mg - Labs Labs: 05/07/17 06:14 05/07/17 06:14 - Extremities Exam Additional comments: erythema continues to resolve. INcisiondry and intact, +ROM ankle/toes, sensation intact +DP/PT pulses, calves soft NT neg homans, improving ambulation and ROM Assessment and Plan (1) Total knee replacement status Assessment & Plan: improving again stressed to patient that she is to follow up with Dr. Car within 1 day of discharge antibiotics as per ID recommend d/c home on PO antibtioics PT/OT d/w Dr. Obando, agrees with above Status: Acute
--- NOTE | 2017-05-08 16:03 | CP.PCM.PN ---
Subjective - Date & Time of Evaluation Date of Evaluation: 05/08/17 Time of Evaluation: 16:00 - Subjective Subjective: Progress note for Dr. Harris's service pt seen and examined at bedside. She states that her pain is well controlled with current medications. No other acute events reported. Denies fevers and chills. Objective - Vital Signs/Intake and Output Vital Signs (last 24 hours): Temp Pulse Resp BP Pulse Ox 97.2 F L 82 18 112/73 96 05/08/17 15:38 05/08/17 15:38 05/08/17 15:38 05/08/17 15:38 05/08/17 15:38 - Medications Medications: Current Medications Aspirin (Aspirin) 325 mg PO DAILY [facility] Last Admin: 05/08/17 10:38 Dose: 325 mg Clonazepam (Klonopin) 2 mg PO TID [facility] Last Admin: 05/08/17 13:42 Dose: 2 mg Duloxetine HCl (Cymbalta) 60 mg PO DAILY [facility] Last Admin: 05/08/17 10:38 Dose: 60 mg Escitalopram Oxalate (Lexapro) 20 mg PO DAILY [facility] Last Admin: 05/08/17 10:38 Dose: 20 mg Cefazolin Sodium 2,000 mg/ (Sodium Chloride) 50 mls @ 100 mls/hr IVPB Q8H [facility] PRN Reason: Protocol Last Admin: 05/08/17 09:30 Dose: 100 mls/hr Ibuprofen (Motrin Tab) 800 mg PO Q6 PRN PRN Reason: Pain, moderate (4-7) Oxycodone HCl (Oxycodone Immediate Release Tab) 15 mg PO Q3H PRN PRN Reason: Pain, moderate (4-7) Last Admin: 05/08/17 10:46 Dose: 15 mg Pantoprazole Sodium (Protonix Ec Tab) 40 mg PO DAILY [facility] Last Admin: 05/08/17 10:38 Dose: 40 mg Risperidone (Risperdal Tab) 2 mg PO BID [facility] Last Admin: 05/08/17 10:39 Dose: 2 mg Trazodone HCl (Desyrel) 50 mg PO HS [facility] Last Admin: 05/07/17 22:26 Dose: 50 mg Zolpidem Tartrate (Ambien) 10 mg PO HS [facility] Last Admin: 05/07/17 22:26 Dose: 10 mg - Labs Labs: 05/07/17 06:14 05/07/17 06:14 - Head Exam Head Exam: ATRAUMATIC, NORMOCEPHALIC - Eye Exam Eye Exam: EOMI - ENT Exam ENT Exam: Mucous Membranes Moist - Respiratory Exam Respiratory Exam: Clear to Ausculation Bilateral, NORMAL BREATHING PATTERN - Cardiovascular Exam Cardiovascular Exam: REGULAR RHYTHM, +S1, +S2 - GI/Abdominal Exam GI & Abdominal Exam: Soft. absent: Tenderness - Extremities Exam Additional comments: surgical area has mild erythema, appropriately tender to palpation, no discharge from wound, stitches remain in place - Neurological Exam Neurological Exam: Alert, Awake, Oriented x3 - Psychiatric Exam Psychiatric exam: Normal Mood - Skin Skin Exam: Dry, Warm Assessment and Plan - Assessment and Plan (Free Text) Plan: L TKR complicated by cellulitis Ortho consult placed to Dr. Ena goss appreciated recommend d/c home with PO antibiotics and follow up with Dr. Car in office day of discharge or at latest day after discharge Motrin 800mg PO q6hrs Oxycodone 15mg PO q3hrs ID consult placed to Dr. Shy goss appreciated Cefazolin 2g IV q8hrs Xray knee- no acute changes/ s/p surgery WBC 4.0 Afebrile Anxiety/depression Klonopin 2mg PO TID Cymbalta 60mg PO daily Lexapro 20mg PO daily Risperdal 2mg PO BID Trazodone 50mg POqhs Insomnia ambien 10mg po qhs Prophylaxis Protonix 40mg PO daily Ambulatory ASA 325mg PO daily This patient will be cleared for discharge but insists that she must have her stitches taken out prior. This has been discussed with ortho team and they do not want to remove stitches and are asking the patient to return to Dr. Car for removal. Her abx will also require transition to PO as per ID prior to discharge. Case discussed with Dr. Harris All management as per Dr. Harris
--- NOTE | 2017-05-08 16:18 | CP.PCM.PN ---
Subjective - Date & Time of Evaluation Date of Evaluation: 05/08/17 Time of Evaluation: 10:00 - Subjective Subjective: IMPROVING AFEBRILE LEFT KNEE LESS RED Objective - Vital Signs/Intake and Output Vital Signs (last 24 hours): Temp Pulse Resp BP Pulse Ox 97.2 F L 82 18 112/73 96 05/08/17 15:38 05/08/17 15:38 05/08/17 15:38 05/08/17 15:38 05/08/17 15:38 - Medications Medications: Current Medications Aspirin (Aspirin) 325 mg PO DAILY [facility] Last Admin: 05/08/17 10:38 Dose: 325 mg Clonazepam (Klonopin) 2 mg PO TID [facility] Last Admin: 05/08/17 13:42 Dose: 2 mg Duloxetine HCl (Cymbalta) 60 mg PO DAILY [facility] Last Admin: 05/08/17 10:38 Dose: 60 mg Escitalopram Oxalate (Lexapro) 20 mg PO DAILY [facility] Last Admin: 05/08/17 10:38 Dose: 20 mg Cefazolin Sodium 2,000 mg/ (Sodium Chloride) 50 mls @ 100 mls/hr IVPB Q8H [facility] PRN Reason: Protocol Last Admin: 05/08/17 09:30 Dose: 100 mls/hr Ibuprofen (Motrin Tab) 800 mg PO Q6 PRN PRN Reason: Pain, moderate (4-7) Oxycodone HCl (Oxycodone Immediate Release Tab) 15 mg PO Q3H PRN PRN Reason: Pain, moderate (4-7) Last Admin: 05/08/17 10:46 Dose: 15 mg Pantoprazole Sodium (Protonix Ec Tab) 40 mg PO DAILY [facility] Last Admin: 05/08/17 10:38 Dose: 40 mg Risperidone (Risperdal Tab) 2 mg PO BID [facility] Last Admin: 05/08/17 10:39 Dose: 2 mg Trazodone HCl (Desyrel) 50 mg PO HS [facility] Last Admin: 05/07/17 22:26 Dose: 50 mg Zolpidem Tartrate (Ambien) 10 mg PO HS [facility] Last Admin: 05/07/17 22:26 Dose: 10 mg - Labs Labs: 05/07/17 06:14 05/07/17 06:14 - Constitutional Appears: Non-toxic, Chronically Ill - Head Exam Head Exam: NORMOCEPHALIC - Eye Exam Eye Exam: PERRL - ENT Exam ENT Exam: Normal External Ear Exam - Neck Exam Neck Exam: absent: Lymphadenopathy - Respiratory Exam Respiratory Exam: Decreased Breath Sounds - Cardiovascular Exam Cardiovascular Exam: REGULAR RHYTHM - GI/Abdominal Exam GI & Abdominal Exam: Distended, Soft - Rectal Exam Rectal Exam: Deferred - Exam Exam: NORMAL INSPECTION Assessment and Plan (1) Total knee replacement status Status: Acute (2) Cellulitis of left knee Status: Acute (3) Colon cancer metastasized to liver Status: Acute - Assessment and Plan (Free Text) Assessment: OK TO COMPLETE 7 DAYS IV THEN SWITCH TO POKEFLEX
--- NOTE | 2017-05-08 18:38 | CP.PCM.PN ---
Subjective - Date & Time of Evaluation Date of Evaluation: 05/08/17 Time of Evaluation: 08:50 - Subjective Subjective: clinically same Objective - Vital Signs/Intake and Output Vital Signs (last 24 hours): Temp Pulse Resp BP Pulse Ox 97.2 F L 82 18 112/73 96 05/08/17 15:38 05/08/17 15:38 05/08/17 15:38 05/08/17 15:38 05/08/17 15:38 - Medications Medications: Current Medications Aspirin (Aspirin) 325 mg PO DAILY [facility] Last Admin: 05/08/17 10:38 Dose: 325 mg Clonazepam (Klonopin) 2 mg PO TID [facility] Last Admin: 05/08/17 17:48 Dose: 2 mg Duloxetine HCl (Cymbalta) 60 mg PO DAILY [facility] Last Admin: 05/08/17 10:38 Dose: 60 mg Escitalopram Oxalate (Lexapro) 20 mg PO DAILY [facility] Last Admin: 05/08/17 10:38 Dose: 20 mg Cefazolin Sodium 2,000 mg/ (Sodium Chloride) 50 mls @ 100 mls/hr IVPB Q8H [facility] PRN Reason: Protocol Last Admin: 05/08/17 16:51 Dose: 100 mls/hr Ibuprofen (Motrin Tab) 800 mg PO Q6 PRN PRN Reason: Pain, moderate (4-7) Oxycodone HCl (Oxycodone Immediate Release Tab) 15 mg PO Q3H PRN PRN Reason: Pain, moderate (4-7) Last Admin: 05/08/17 10:46 Dose: 15 mg Pantoprazole Sodium (Protonix Ec Tab) 40 mg PO DAILY [facility] Last Admin: 05/08/17 10:38 Dose: 40 mg Risperidone (Risperdal Tab) 2 mg PO BID [facility] Last Admin: 05/08/17 17:48 Dose: 2 mg Trazodone HCl (Desyrel) 50 mg PO HS [facility] Last Admin: 05/07/17 22:26 Dose: 50 mg Zolpidem Tartrate (Ambien) 10 mg PO HS [facility] Last Admin: 05/07/17 22:26 Dose: 10 mg - Labs Labs: 05/07/17 06:14 05/07/17 06:14 - Constitutional Appears: Well - Head Exam Head Exam: ATRAUMATIC, NORMAL INSPECTION, NORMOCEPHALIC - Eye Exam Eye Exam: EOMI, Normal appearance, PERRL Pupil Exam: NORMAL ACCOMODATION, PERRL - ENT Exam ENT Exam: Mucous Membranes Moist, Normal Exam - Neck Exam Neck Exam: Full ROM, Normal Inspection. absent: Lymphadenopathy - Respiratory Exam Respiratory Exam: Decreased Breath Sounds - Cardiovascular Exam Cardiovascular Exam: REGULAR RHYTHM, +S1, +S2 - GI/Abdominal Exam GI & Abdominal Exam: Soft, Diminished Bowel Sounds - Rectal Exam Rectal Exam: Deferred
[2017-05-09 00:51] VITALS: RESP 20
[2017-05-09] MEDS: Pantoprazole 40 mg EC Tab PO SCH (09:01)
[2017-05-09] MEDS: oxyCODONE 5 mg Immediate Release Tab PO PRN (10:01)
--- NOTE | 2017-05-09 10:54 | CP.PCM.PN ---
<Deidra Wallace - Last Filed: 05/09/17 16:08> Subjective - Date & Time of Evaluation Date of Evaluation: 05/09/17 Time of Evaluation: 10:30 - Subjective Subjective: PGY-[address] Harris Patient seen and examined at bedside. No acute events reported overnight. Patient has been ambulating around without difficulty. Patient understands that she needs to follow up with Dr. Car for her suture removal. Patient denies having fever, chills, shortness of breath, chest pain, nausea, or vomiting. Objective - Vital Signs/Intake and Output Vital Signs (last 24 hours): Temp Pulse Resp BP Pulse Ox 97.5 F L 73 20 100/68 96 05/09/17 08:12 05/09/17 08:12 05/09/17 08:12 05/09/17 08:12 05/09/17 08:12 - Medications Medications: Current Medications Aspirin (Aspirin) 325 mg PO DAILY [facility] Last Admin: 05/09/17 09:03 Dose: 325 mg Clonazepam (Klonopin) 2 mg PO TID [facility] Last Admin: 05/09/17 09:01 Dose: 2 mg Duloxetine HCl (Cymbalta) 60 mg PO DAILY [facility] Last Admin: 05/09/17 09:02 Dose: 60 mg Escitalopram Oxalate (Lexapro) 20 mg PO DAILY [facility] Last Admin: 05/09/17 09:02 Dose: 20 mg Cefazolin Sodium 2,000 mg/ (Sodium Chloride) 50 mls @ 100 mls/hr IVPB Q8H [facility] PRN Reason: Protocol Last Admin: 05/09/17 08:57 Dose: 100 mls/hr Ibuprofen (Motrin Tab) 800 mg PO Q6 PRN PRN Reason: Pain, moderate (4-7) Oxycodone HCl (Oxycodone Immediate Release Tab) 15 mg PO Q3H PRN PRN Reason: Pain, moderate (4-7) Last Admin: 05/09/17 10:01 Dose: 15 mg Pantoprazole Sodium (Protonix Ec Tab) 40 mg PO DAILY [facility] Last Admin: 05/09/17 09:01 Dose: 40 mg Risperidone (Risperdal Tab) 2 mg PO BID [facility] Last Admin: 05/09/17 09:01 Dose: 2 mg Trazodone HCl (Desyrel) 50 mg PO HS [facility] Last Admin: 05/08/17 22:02 Dose: 50 mg Zolpidem Tartrate (Ambien) 10 mg PO [facility] Last Admin: 05/08/17 22:02 Dose: 10 mg - Labs Labs: 05/07/17 06:14 05/07/17 06:14 - Constitutional Appears: Well, No Acute Distress - Head Exam Head Exam: ATRAUMATIC, NORMOCEPHALIC - Eye Exam Eye Exam: EOMI - ENT Exam ENT Exam: Mucous Membranes Moist - Respiratory Exam Respiratory Exam: Clear to Ausculation Bilateral, NORMAL BREATHING PATTERN. absent: Respiratory Distress - Cardiovascular Exam Cardiovascular Exam: REGULAR RHYTHM, +S1, +S2. absent: Murmur - GI/Abdominal Exam GI & Abdominal Exam: Soft. absent: Tenderness - Extremities Exam Additional comments: surgical area has mild erythema, stitches in place, no discharge, no exudates appreciated - Neurological Exam Neurological Exam: Alert, Awake, Oriented x3 - Psychiatric Exam Psychiatric exam: Normal Mood - Skin Skin Exam: Dry, Warm Assessment and Plan - Assessment and Plan (Free Text) Assessment: Left Total Knee Replacement complicated by cellulitis Ortho consult placed to Dr. Ena goss appreciated Patient will follow up with Dr. Car in office to have sutures removed, appt 05/15/17 Motrin 800mg PO q6hrs Oxycodone 15mg PO q3hrs ID consult placed to Dr. Shy goss appreciated Cefazolin 2g IV q8hrs for 3 more days in rehab, then start PO keflex Xray knee- no acute changes/ s/p surgery Afebrile Anxiety/depression Klonopin 2mg PO TID Cymbalta 60mg PO daily Lexapro 20mg PO daily Risperdal 2mg PO BID Trazodone 50mg POqhs Insomnia ambien 10mg po qhs Prophylaxis Protonix 40mg PO daily Ambulatory ASA 325mg PO daily Patient will be discharged to [place] short term rehab Case discussed with Dr. Harris All management as per Dr. Harris <Rosaura Harris S - Last Filed: 05/09/17 22:08> Objective - Vital Signs/Intake and Output Vital Signs (last 24 hours): Temp Pulse Resp BP Pulse Ox 97.6 F 84 20 105/70 95 05/09/17 15:00 05/09/17 15:00 05/09/17 15:00 05/09/17 15:00 05/09/17 15:00 Intake and Output: 05/09/17 05/10/17 18:59 06:59 Intake Total 480 Balance 480 - Labs Labs: 05/07/17 06:14 05/07/17 06:14 Attending/Attestation - Attestation I have personally seen and examined this patient.: Yes I have fully participated in the care of the patient.: Yes I have reviewed all pertinent clinical information, including history, physical exam and plan: Yes Notes (Text): 05/09/17 22:08 case seen and d/w staff and resident and staff
--- NOTE | 2017-05-09 14:44 | CP.PCM.PN ---
Subjective - Date & Time of Evaluation Date of Evaluation: 05/09/17 Time of Evaluation: 09:00 - Subjective Subjective: clinically same Objective - Vital Signs/Intake and Output Vital Signs (last 24 hours): Temp Pulse Resp BP Pulse Ox 97.5 F L 73 20 100/68 96 05/09/17 08:12 05/09/17 08:12 05/09/17 08:12 05/09/17 08:12 05/09/17 08:12 Intake and Output: 05/09/17 05/09/17 06:59 18:59 Intake Total 480 Balance 480 - Medications Medications: Current Medications Aspirin (Aspirin) 325 mg PO DAILY [facility] Last Admin: 05/09/17 09:03 Dose: 325 mg Clonazepam (Klonopin) 2 mg PO TID [facility] Last Admin: 05/09/17 13:02 Dose: 2 mg Duloxetine HCl (Cymbalta) 60 mg PO DAILY [facility] Last Admin: 05/09/17 09:02 Dose: 60 mg Escitalopram Oxalate (Lexapro) 20 mg PO DAILY [facility] Last Admin: 05/09/17 09:02 Dose: 20 mg Cefazolin Sodium 2,000 mg/ (Sodium Chloride) 50 mls @ 100 mls/hr IVPB Q8H [facility] PRN Reason: Protocol Last Admin: 05/09/17 08:57 Dose: 100 mls/hr Ibuprofen (Motrin Tab) 800 mg PO Q6 PRN PRN Reason: Pain, moderate (4-7) Oxycodone HCl (Oxycodone Immediate Release Tab) 15 mg PO Q3H PRN PRN Reason: Pain, moderate (4-7) Last Admin: 05/09/17 10:01 Dose: 15 mg Pantoprazole Sodium (Protonix Ec Tab) 40 mg PO DAILY [facility] Last Admin: 05/09/17 09:01 Dose: 40 mg Risperidone (Risperdal Tab) 2 mg PO BID [facility] Last Admin: 05/09/17 09:01 Dose: 2 mg Trazodone HCl (Desyrel) 50 mg PO HS [facility] Last Admin: 05/08/17 22:02 Dose: 50 mg Zolpidem Tartrate (Ambien) 10 mg PO HS [facility] Last Admin: 05/08/17 22:02 Dose: 10 mg - Labs Labs: 05/07/17 06:14 05/07/17 06:14 Assessment and Plan (1) Abdominal pain Status: Acute (2) Acute renal insufficiency Status: Acute (3) Anemia Status: Acute (4) Anxiety Status: Acute (5) Arm sprain Status: Acute (6) Arthralgia of knee, left Status: Acute (7) Arthritis Status: Acute (8) Cellulitis Status: Acute (9) Cellulitis and abscess Status: Acute (10) Cellulitis of left knee Status: Acute (11) Chemotherapy adverse reaction Status: Acute (12) Chest pain Status: Acute (13) Chest pain Status: Acute (14) Closed head injury Status: Acute (15) Cocaine abuse Status: Acute (16) Colon cancer Status: Acute (17) Colon cancer metastasized to liver Status: Acute (18) Colonic mass Status: Acute (19) Constipation Status: Acute (20) Constipation Status: Acute (21) Contusion of chest Status: Acute (22) Contusion of knee, left Status: Acute (23) Contusion of knee, right Status: Acute (24) Contusion of lower back Status: Acute (25) Dizziness Status: Acute (26) Duodenitis Status: Acute (27) External hemorrhoid, bleeding Status: Acute (28) Fall in bathtub Status: Acute (29) Fever Status: Acute (30) Gastrointestinal hemorrhage Status: Acute (31) Head injury Status: Acute (32) Head trauma Status: Acute (33) History of rectal bleeding Status: Acute (34) Infected abrasion Status: Acute (35) Infection due to portacath Status: Acute (36) Joint pain Status: Acute (37) Knee contusion Status: Acute (38) Knee injury Status: Acute (39) Knee pain Status: Acute (40) Knee pain, bilateral Status: Acute (41) Knee sprain, bilateral Status: Acute (42) Left sided abdominal pain Status: Acute (43) Leukocytosis Status: Acute (44) Liver lesion Status: Acute (45) Muscle pain Status: Acute (46) Nausea Status: Acute (47) Osteoarthritis Status: Acute (48) Pancytopenia Status: Acute (49) Pancytopenia due to antineoplastic chemotherapy Status: Acute (50) Rectal bleeding Status: Acute (51) Shoulder contusion Status: Acute (52) Shoulder pain Status: Acute (53) Shoulder sprain Status: Acute (54) Status post chemotherapy Status: Acute (55) Total knee replacement status Status: Acute (56) Uncontrolled hypertension Status: Acute (57) Vertigo Status: Acute (58) Anxiety Status: Chronic (59) Iron deficiency anemia Status: Chronic - Assessment and Plan (Free Text) Plan: Left Total Knee Replacement complicated by cellulitis Ortho consult placed to Dr. Ena goss appreciated Patient will follow up with Dr. Car in office to have sutures removed, appt 05/15/17 Motrin 800mg PO q6hrs Oxycodone 15mg PO q3hrs ID consult placed to Dr. Shy goss appreciated Cefazolin 2g IV q8hrs for 3 more days in rehab, then start PO keflex Xray knee- no acute changes/ s/p surgery Afebrile Anxiety/depression Klonopin 2mg PO TID Cymbalta 60mg PO daily Lexapro 20mg PO daily Risperdal 2mg PO BID Trazodone 50mg POqhs Insomnia ambien 10mg po qhs Prophylaxis Protonix 40mg PO daily Ambulatory
[2017-05-09 17:04] VITALS: BP 105/70; PULSE 84; TEMP 97.6; O2SAT 95
== END 2017-05-09 17:07 | DRG 559 ==
LOC: C.ER 13:33 → C.9E 15:36 → C.6T 17:21
PROVIDERS: ADMIT Internal Medicine Nephrology; ATTEND Internal Medicine Nephrology
DX: T84.54XA Infection and inflammatory reaction due to internal left knee prosthesis, initial encounter (principal); L03.116 Cellulitis of left lower limb; C78.7 Secondary malignant neoplasm of liver and intrahepatic bile duct; D61.810 Antineoplastic chemotherapy induced pancytopenia; D50.9 Iron deficiency anemia, unspecified; I10 Essential (primary) hypertension; J44.9 Chronic obstructive pulmonary disease, unspecified; F14.10 Cocaine abuse, uncomplicated; N28.9 Disorder of kidney and ureter, unspecified; M06.9 Rheumatoid arthritis, unspecified; F20.9 Schizophrenia, unspecified; F31.9 Bipolar disorder, unspecified; F41.9 Anxiety disorder, unspecified; G47.00 Insomnia, unspecified; Z96.652 Presence of left artificial knee joint; Z85.038 Personal history of other malignant neoplasm of large intestine; Z98.51 Tubal ligation status; Z92.21 Personal history of antineoplastic chemotherapy

== ENCOUNTER 2017-07-31 12:30 | Inpatient (IN) | payer MEDICARE ==
[2017-07-31 12:30] VITALS: BMI 34.4
--- NOTE | 2017-07-31 13:53 | RAD ---
PROCEDURE: CHEST RADIOGRAPH, 1 VIEW HISTORY: CP COMPARISON: Chest radiograph dated 01/21/2017. FINDINGS: LUNGS: Clear. PLEURA: No pneumothorax or pleural fluid seen. CARDIOVASCULAR: Cardiomediastinal silhouette stably enlarged. OSSEOUS STRUCTURES: Changed. VISUALIZED UPPER ABDOMEN: Normal. OTHER FINDINGS: Right subclavian access chest port, unchanged. IMPRESSION: No active disease.
--- NOTE | 2017-07-31 14:05 | C.PDOC ---
History Of Present Illness 46 yo female BIBA for evaluation of left sided chest pain which began this morning when she woke up; given ASA 324mg and SL nitro in the field. She reports the pain radiates to her left arm and she feels numbness and tingling in her left hand as well. She reports the chest pain feels like someone is pushing on her chest; states the pain is present intermittently. She denies cough, fever, abdominal pain, nausea/vomiting, but does admit to mild associated SOB. Of note, patient states she has a history of stage IV colon cancer Iliver mets) and is currently undergoing a chemotherapy treatment with Dr. Heath. Time Seen by Provider: 07/31/17 13:05 Chief Complaint (Nursing): Chest Pain History Per: Patient History/Exam Limitations: no limitations Onset/Duration Of Symptoms: Hrs Current Symptoms Are (Timing): Still Present Severity: Moderate Quality: Pressure, "Pain" Additional History Per: Patient Past Medical History Reviewed: Historical Data, Nursing Documentation, Vital Signs Vital Signs: Last Vital Signs Temp 97.4 F L 08/04/17 07:53 Pulse 88 08/04/17 11:57 Resp 18 08/04/17 07:53 BP 100/67 08/04/17 07:53 Pulse Ox 96 08/04/17 07:53 - Medical History PMH: Anemia, Anxiety, Arthritis (osteoarthritis), Asthma, Back Problems, Bipolar Disorder, Depression, HTN, Malignancy (Colon), Rheumatoid Arthritis, Schizophrenia Surgical History: No Surg Hx - [facility] Procedures CLOSED ENDOSCOPIC BIOPSY OF LARGE INTESTINE (05/23/14) COLONOSCOPY (08/12/14) DX ULTRASOUND-ABDOMEN (05/23/14) INSERTION OF TOTALLY IMPLANTABLE VASC ACCESS DEVIC (05/23/14) LAPAROSCOP LYSIS-PERITONEAL ADHES (05/23/14) LAPAROSCOPIC SIGMOIDECTOMY (05/23/14) OTHER ENDOSCOPY OF SM INTEST (05/23/14) PACKED CELL TRANSFUSION (05/23/14) PERCUTAN NEEDLE BX OF LIVER (05/23/14) REMOVAL OF VAD FROM TRUNK SUBCU/FASCIA, PERC APPROACH (03/16/15) Family History: States: No Known Family Hx - Social History Hx Tobacco Use: No Hx Alcohol Use: No Hx Substance Use: Yes - Immunization History Hx Tetanus Toxoid Vaccination: No Hx Influenza Vaccination: No Hx Pneumococcal Vaccination: No Review Of Systems Constitutional: Negative for: Fever, Chills Cardiovascular: Positive for: Chest Pain. Negative for: Palpitations Respiratory: Positive for: Shortness of Breath. Negative for: Cough Gastrointestinal: Negative for: Nausea, Vomiting, Abdominal Pain, Diarrhea Genitourinary: Negative for: Dysuria Musculoskeletal: Positive for: Arm Pain (left) Neurological: Positive for: Numbness (numbness/tingling to left hand). Negative for: Weakness, Headache, Dizziness Physical Exam - Physical Exam Appears: Well, Non-toxic, No Acute Distress, Other (bizarre affect) Skin: Normal Color, Warm, Dry Head: Normacephalic Eye(s): bilateral: Normal Inspection Oral Mucosa: Moist Neck: Supple Cardiovascular: Rhythm Regular Respiratory: Normal Breath Sounds, No Accessory Muscle Use, No Rales, No Rhonchi , No Wheezing Gastrointestinal/Abdominal: Normal Exam, Bowel Sounds, Soft, No Tenderness Back: No CVA Tenderness Extremity: Normal ROM, No Pedal Edema, No Calf Tenderness Pulses: Left Dorsalis Pedis: Normal, Right Dorsalis Pedis: Normal Neurological/Psych: Oriented x3 ED Course And Treatment - Laboratory Results Result Diagrams: 07/31/17 14:10 07/31/17 14:10 ECG: Interpreted By Me, Viewed By Me ECG Rhythm: Sinus Rhythm ECG Interpretation: No Acute Changes Interpretation Of ECG: Left axis deviation, no ST/T changes Rate From EC (bpm) O2 Sat by Pulse Oximetry: 98 (RA) Pulse Ox Interpretation: Normal - CT Scan/US CTA CHEST Other Rad Studies (CT/US): Read By Radiologist, Radiology Report Reviewed CT/US Interpretation: Accession No. : [id number]. Patient Name / ID : PELON CRUZ / [id number]. Exam Date : 07/31/2017 16:14:44 ( Approved ). Study Comment : Sex / Age : F / 46Y. Creator : Brendon hTapa MD. Dictator : Sternman : Mechanical Design Engineer : Brendon Thapa MD. Approver2 : Report Date : 07/31/2017 16:48:04. My Comment : . PROCEDURE: CT Chest with contrast (Pulmonary Angiogram). HISTORY: CP, SOB, H/O COLON CA R/O PE. COMPARISON: Correlation made with chest radiograph earlier same day. Comparison also made with CT scan chest 10/04/2016. TECHNIQUE: Axial computed tomography images were obtained of the chest in the pulmonary arterial phase of enhancement. Coronal and sagittal reformatted images were created and reviewed. Intravenous contrast dose: 100 cc Visipaque 320. Radiation dose: Total exam DLP = 522.05 mGy-cm. This CT exam was performed using one or more of the following dose reduction techniques: Automated exposure control, adjustment of the mA and/or kV according to patient size, and/or use of iterative reconstruction technique. FINDINGS: PULMONARY ARTERIES: The visualized pulmonary trunk, right and left main, segmental and proximal subsegmental branches of the pulmonary arteries are well opacified with no definitive filling defects to central pulmonary embolus. Pulmonary trunk measures approximately 2.65 cm. AORTA: No acute findings. No thoracic aortic aneurysm. LUNGS: There is an approximately 11.6 cm elliptical shaped nodule right the posterolateral upper lung field bordering the pleural surface. . Pulmonary consultation recommended. Biopsy may be prudent given this patient's history of colon carcinoma to exclude the possibility of a metastatic deposit. . No other parenchymal nodules are identified. No acute consolidation. No effusion or pneumothorax. PLEURAL SPACES: As above. HEART: Heart appears mildly enlarged. . There is a tiny amount of fluid seen within the superior pericardial recess and within the cleft between the adjacent to the anterior margin of pulmonary trunk and ascending thoracic aorta. . Ascending thoracic aorta measures approximately 3.0 cm and descending thoracic aorta measures approximately 2.1 cm. . LYMPH NODES: There appear to be a few small nonspecific mediastinal lymph nodes. No significant hilar adenopathy is identified. Central airways are midline and patent. No large central endoluminal lesions. Tiny hiatal hernia. BONES, CHEST WALL: Mild multilevel degenerative spondylosis of the thoracic spine. No acute compression fractures nor retropulsed fragments. No definitive lytic or blastic lesions are identified. OTHER FINDINGS: The spleen is mildly enlarged measuring nearly 13 cm in CC dimension. IMPRESSION: No evidence of acute central pulmonary embolus. There is an approximately 11.6 cm elliptical shaped nodule right the posterolateral upper lung field bordering the pleural surface. . Pulmonary consultation recommended. . Biopsy may be prudent given the patient's history of colon carcinoma could be performed to exclude the possibility of a metastatic deposit given the patient's history of colon carcinoma. No other parenchymal nodules are identified. No acute consolidation. No effusion or pneumothorax. Splenomegaly. Note these findings were discussed with Dr. Campos at approximately 4:45 p.m. with written down and read back verification. Progress Note: Blood work, UA, EKG and CTA chest ordered and reviewed. CTA neg for PE however shows right sided lung nodule, ? possible lung mets. Patient to be admitted for chest pain, dyspnea, r/o lung mets, ACS. - Physician Consult Information Physician Contacted: Rosaura Howard Outcome Of Conversation: Discussed patient with Dr. Tila howard, agrees with admission to his service for chest pain, lung nodule (right), colon CA, dyspnea , r/o ACS, r/o lung mets. Puml consult Dr. Chappell and Oncology consult Dr. Heath entered. Disposition - Disposition Disposition: HOSPITALIZED Disposition Time: 16:47 Condition: STABLE - Clinical Impression Clinical Impression: Nodule of right lung, Dyspnea, Colon cancer, Chest pain - Scribe Statement The provider has reviewed the documentation as recorded by the Scribe (Angelica Rosales) Provider Attestation: All medical record entries made by the Scribe were at my direction and personally dictated by me. I have reviewed the chart and agree that the record accurately reflects my personal performance of the history, physical exam, medical decision making, and the department course for this patient. I have also personally directed, reviewed, and agree with the discharge instructions and disposition. Decision To Admit - Pt Status Changed To: Hospital Disposition Of: Inpatient - Admit Certification Admit to Inpatient:: After my assessment, the patient will require hospitalization for at least two midnights. This is because of the severity of symptoms shown, intensity of services needed, and/or the medical risk in this patient being treated as an outpatient. - InPatient: Physician Admission Certification: I certify that this patient requires 2 or more midnights of care for the following reason:: see notes - . Bed Request Type: Telemetry Admitting Physician: Rosaura Howard Patient Diagnosis: Chest pain, Nodule of right lung, Colon cancer, Dyspnea
[2017-07-31 14:25] LABS: BASO % 0.2 % (0.0-2.0); EOS % 0.4 % (0.0-4.0); HEMOGLOBIN 10.9 g/dL (11.0-16.0); LYMPH # 0.7 K/uL (1.0-4.3); LYMPH % 16.6 % (20.0-40.0); MEAN CELL VOLUME 74.4 fL (81.0-99.0); MEAN CORPUSCULAR HEMOGLOBIN 24.2 pg (27.0-31.0); MEAN CORPUSCULAR HGB CONC 32.5 g/dL (33.0-37.0); MEAN PLATELET VOLUME 8.7 fL (7.2-11.7); MONO # 0.3 K/uL (0.0-0.8); MONO % 6.2 % (0.0-10.0); NEUT # 3.3 K/uL (1.8-7.0); NEUT % 76.6 % (50.0-75.0); NRBC % 0.1 % (0.0-2.0); RBC 4.52 Mil/uL (3.80-5.20); RED CELL DISTRIBUTION WIDTH 16.9 % (11.5-14.5); WHITE BLOOD COUNT 4.3 K/uL (4.8-10.8)
[2017-07-31 14:26] LABS: HCG,QUALITATIVE URINE NEGATIVE (NEGATIVE)
[2017-07-31 14:42] LABS: SQUAMOUS EPITHIAL 1 /hpf (0-5); URINE BACTERIA RARE (<OCC); URINE BILIRUBIN NEGATIVE (NEGATIVE); URINE BLOOD NEGATIVE (NEGATIVE); URINE CLARITY Clear (Clear); URINE COLOR Straw (YELLOW); URINE GLUCOSE (UA) NORMAL (Normal); URINE LEUKOCYTE ESTERASE NEG Leu/uL (Negative); URINE PROTEIN NEGATIVE (NEGATIVE); URINE UROBILINOGEN NORMAL mg/dL (0.2-1.0)
[2017-07-31 14:45] LABS: ALBUMIN 3.5 g/dL (3.5-5.0); BLOOD UREA NITROGEN 7 mg/dL (7-17); CALCIUM 8.7 mg/dl (8.6-10.4); GFR AFRICAN-AMERICAN > 60; GFR NON-AFRICAN AMERICAN > 60
[2017-07-31 14:46] LABS: ALB/GLOB RATIO 1.2 (1.0-2.1); ALT/SGPT 20 U/L (9-52); AST/SGOT 23 U/L (14-36)
[2017-07-31 14:52] LABS: CK-MB 0.26 ng/mL (0.0-3.38)
[2017-07-31 15:05] LABS: BARBITURATES, UR NEGATIVE (NEGATIVE); BENZODIAZEPINES, UR NEGATIVE (NEGATIVE); OPIATES, UR NEGATIVE (NEGATIVE); PHENCYCLIDINE, UR NEGATIVE (NEGATIVE)
[2017-07-31] MEDS ORDERED: Iodixanol 320 MG/ML 100 ML BOTTLE IV ONE (16:08)
--- NOTE | 2017-07-31 16:49 | CT ---
PROCEDURE: CT Chest with contrast (Pulmonary Angiogram) HISTORY: CP, SOB, H/O COLON CA R/O PE COMPARISON: Correlation made with chest radiograph earlier same day. Comparison also made with CT scan chest 10/04/2016 TECHNIQUE: Axial computed tomography images were obtained of the chest in the pulmonary arterial phase of enhancement. Coronal and sagittal reformatted images were created and reviewed. Intravenous contrast dose: 100 cc Visipaque 320 Radiation dose: Total exam DLP = 522.05 mGy-cm. This CT exam was performed using one or more of the following dose reduction techniques: Automated exposure control, adjustment of the mA and/or kV according to patient size, and/or use of iterative reconstruction technique. FINDINGS: PULMONARY ARTERIES: The visualized pulmonary trunk, right and left main, segmental and proximal subsegmental branches of the pulmonary arteries are well opacified with no definitive filling defects to central pulmonary embolus. Pulmonary trunk measures approximately 2.65 cm. AORTA: No acute findings. No thoracic aortic aneurysm. LUNGS: There is an approximately 11.6 cm elliptical shaped nodule right the posterolateral upper lung field bordering the pleural surface. . Pulmonary consultation recommended. Biopsy may be prudent given this patient's history of colon carcinoma to exclude the possibility of a metastatic deposit. . No other parenchymal nodules are identified. No acute consolidation. No effusion or pneumothorax PLEURAL SPACES: As above. HEART: Heart appears mildly enlarged. . There is a tiny amount of fluid seen within the superior pericardial recess and within the cleft between the adjacent to the anterior margin of pulmonary trunk and ascending thoracic aorta. . Ascending thoracic aorta measures approximately 3.0 cm and descending thoracic aorta measures approximately 2.1 cm. . LYMPH NODES: There appear to be a few small nonspecific mediastinal lymph nodes. No significant hilar adenopathy is identified. Central airways are midline and patent. No large central endoluminal lesions. Tiny hiatal hernia. BONES, CHEST WALL: Mild multilevel degenerative spondylosis of the thoracic spine. No acute compression fractures nor retropulsed fragments. No definitive lytic or blastic lesions are identified. OTHER FINDINGS: The spleen is mildly enlarged measuring nearly 13 cm in CC dimension. IMPRESSION: No evidence of acute central pulmonary embolus. There is an approximately 11.6 cm elliptical shaped nodule right the posterolateral upper lung field bordering the pleural surface. . Pulmonary consultation recommended. . Biopsy may be prudent given the patient's history of colon carcinoma could be performed to exclude the possibility of a metastatic deposit given the patient's history of colon carcinoma. No other parenchymal nodules are identified. No acute consolidation. No effusion or pneumothorax. Splenomegaly. Note these findings were discussed with Dr. Campos at approximately 4:45 p.m. with written down and read back verification.
--- NOTE | 2017-07-31 20:16 | CP.PCM.PN ---
Subjective - Date & Time of Evaluation Date of Evaluation: 07/31/17 Time of Evaluation: 10:00 - Subjective Subjective: clinically same Objective - Vital Signs/Intake and Output Vital Signs (last 24 hours): Temp Pulse Resp BP Pulse Ox 97.4 F L 76 20 151/94 H 99 07/31/17 19:05 07/31/17 19:05 07/31/17 19:05 07/31/17 19:05 07/31/17 19:05 - Medications Medications: Current Medications Amlodipine Besylate (Norvasc) 5 mg PO STAT [facility] Aspirin (Aspirin) 325 mg PO DAILY [facility] Clonazepam (Klonopin) 2 mg PO TID [facility] Duloxetine HCl (Cymbalta) 60 mg PO DAILY [facility] Enoxaparin Sodium (Lovenox) 40 mg SC DAILY [facility] Escitalopram Oxalate (Lexapro) 20 mg PO DAILY [facility] Ibuprofen (Motrin Tab) 800 mg PO Q6 PRN PRN Reason: Pain, moderate (4-7) Oxycodone HCl (Oxycodone Immediate Release Tab) 15 mg PO Q3H PRN PRN Reason: Pain, moderate (4-7) Pantoprazole Sodium (Protonix Ec Tab) 40 mg PO DAILY [facility] Polyethylene Glycol (Miralax) 17 gm PO DAILY [facility] Risperidone (Risperdal Tab) 2 mg PO BID [facility] Trazodone HCl (Desyrel) 50 mg PO HS [facility] Zolpidem Tartrate (Ambien) 10 mg PO HS [facility] - Labs Labs: 07/31/17 14:10 07/31/17 14:10 - Constitutional Appears: Well - Head Exam Head Exam: ATRAUMATIC, NORMAL INSPECTION, NORMOCEPHALIC - Eye Exam Eye Exam: EOMI, Normal appearance, PERRL Pupil Exam: NORMAL ACCOMODATION, PERRL - ENT Exam ENT Exam: Mucous Membranes Moist, Normal Exam - Neck Exam Neck Exam: Full ROM, Normal Inspection. absent: Lymphadenopathy - Respiratory Exam Respiratory Exam: Decreased Breath Sounds - Cardiovascular Exam Cardiovascular Exam: REGULAR RHYTHM, +S1, +S2 - GI/Abdominal Exam GI & Abdominal Exam: Soft, Diminished Bowel Sounds - Rectal Exam Rectal Exam: Deferred
--- NOTE | 2017-07-31 20:17 | CP.PCM.HP ---
Past Patient History - Infectious Disease Hx of Infectious Diseases: None - Past Medical History & Family History Past Medical History?: Yes - Past Social History Smoking Status: Never Smoked - CARDIAC Hx Cardiac Disorders: Yes Hx Hypertension: Yes - PULMONARY Hx Respiratory Disorders: Yes Hx Asthma: Yes - NEUROLOGICAL Hx Neurological Disorder: No - HEENT Hx HEENT Problems: No - RENAL Hx Chronic Kidney Disease: No - ENDOCRINE/METABOLIC Hx Endocrine Disorders: No - HEMATOLOGICAL/ONCOLOGICAL Hx Blood Disorders: Yes Hx Anemia: Yes - INTEGUMENTARY Hx Dermatological Problems: No - MUSCULOSKELETAL/RHEUMATOLOGICAL Hx Arthritis: Yes (osteoarthritis) Hx Falls: No Hx Rheumatoid Arthritis: Yes - GASTROINTESTINAL Hx Bowel Surgery: Yes Other/Comment: COLON CANCER STAGE 4 WITH CHEMOTHERAPY, last chemo was September 2016. R side port a cath - GENITOURINARY/GYNECOLOGICAL Hx Genitourinary Disorders: No - PSYCHIATRIC Hx Psychophysiologic Disorder: Yes Hx Anxiety: Yes Hx Bipolar Disorder: Yes Hx Depression: Yes Hx Schizophrenia: Yes Hx Substance Use: Yes - SURGICAL HISTORY Hx Surgeries: Yes (SEE COMMENT) Hx Orthopedic Surgery: Yes (left knee TKR) Hx Vascular Access Device: Yes (RIGHT SUBCLAVIAN) Other/Comment: colon cancer surgery april 2014 to remove tumor, rt side subclavian Port - ANESTHESIA Hx Anesthesia: Yes Hx Anesthesia Reactions: No Hx Malignant Hyperthermia: No Has any member of the family had a problem w/ anesthesia?: No Meds Allergies/Adverse Reactions: Allergies Allergy/AdvReac Type Severity Reaction Status Date / Time No Known Allergies Allergy Verified 07/31/17 12:48 Physical Exam - Constitutional Appears: Well - Head Exam Head Exam: ATRAUMATIC, NORMAL INSPECTION, NORMOCEPHALIC - Eye Exam Eye Exam: EOMI, Normal appearance, PERRL Pupil Exam: NORMAL ACCOMODATION, PERRL - ENT Exam ENT Exam: Mucous Membranes Moist, Normal Exam - Neck Exam Neck exam: Positive for: Normal Inspection - Respiratory Exam Respiratory Exam: Decreased Breath Sounds - Cardiovascular Exam Cardiovascular Exam: REGULAR RHYTHM, +S1, +S2 - GI/Abdominal Exam GI & Abdominal Exam: Diminished Bowel Sounds, Soft - Rectal Exam Rectal Exam: Deferred Results - Vital Signs Recent Vital Signs: Last Vital Signs Temp 97.4 F L 07/31/17 19:05 Pulse 76 07/31/17 19:05 Resp 20 07/31/17 19:05 BP 151/94 H 07/31/17 19:05 Pulse Ox 99 07/31/17 19:05 - Labs Result Diagrams: 07/31/17 14:10 07/31/17 14:10 Labs: Laboratory Results - last 24 hr 07/31/17 07/31/17 07/31/17 14:10 14:10 14:10 WBC 4.3 L RBC 4.52 Hgb 10.9 L Hct 33.6 L MCV 74.4 L MCH 24.2 L MCHC 32.5 L RDW 16.9 H Plt Count 117 L MPV 8.7 Neut % (Auto) 76.6 H Lymph % (Auto) 16.6 L [place] % (Auto) 6.2 Eos % (Auto) 0.4 Baso % (Auto) 0.2 Neut # (Auto) 3.3 Lymph # (Auto) 0.7 L [place] # (Auto) 0.3 Eos # (Auto) 0.0 Baso # (Auto) 0.0 Differential Comment Sodium 141 Potassium 3.6 Chloride 104 Carbon Dioxide 27 Anion Gap 12 BUN 7 Creatinine 0.7 Est GFR ( Amer) > 60 Est GFR (Non-Af Amer) > 60 Random Glucose 93 Calcium 8.7 Total Bilirubin 0.6 AST 23 ALT 20 Alkaline Phosphatase 74 Total Creatine Kinase 43 CK-MB (Mass) 0.26 Troponin I < 0.0120 Total Protein 6.4 Albumin 3.5 Globulin 3.0 Albumin/Globulin Ratio 1.2 Urine Color Straw Urine Clarity Clear Urine pH 7.0 Ur Specific [place] 1.004 Urine Protein Negative Urine Glucose (UA) Normal Urine Ketones Negative Urine Blood Negative Urine Nitrate Negative Urine Bilirubin Negative Urine Urobilinogen Normal Ur Leukocyte Esterase Neg Urine RBC (Auto) < 1 Ur Squamous Epith Cells 1 Urine Bacteria Rare Urine HCG, Qual Negative Urine Opiates Screen Urine Methadone Screen Ur Barbiturates Screen Ur Phencyclidine Scrn Ur Amphetamines Screen U Benzodiazepines Scrn U Oth Cocaine Metabols U Cannabinoids Screen 07/31/17 14:10 WBC RBC Hgb Hct MCV MCH MCHC RDW Plt Count MPV Neut % (Auto) Lymph % (Auto) [place] % (Auto) Eos % (Auto) Baso % (Auto) Neut # (Auto) Lymph # (Auto) [place] # (Auto) Eos # (Auto) Baso # (Auto) Differential Comment Sodium Potassium Chloride Carbon Dioxide Anion Gap BUN Creatinine Est GFR ( Amer) Est GFR (Non-Af Amer) Random Glucose Calcium Total Bilirubin AST ALT Alkaline Phosphatase Total Creatine Kinase CK-MB (Mass) Troponin I Total Protein Albumin Globulin Albumin/Globulin Ratio Urine Color Urine Clarity Urine pH Ur Specific [place] Urine Protein Urine Glucose (UA) Urine Ketones Urine Blood Urine Nitrate Urine Bilirubin Urine Urobilinogen Ur Leukocyte Esterase Urine RBC (Auto) Ur Squamous Epith Cells Urine Bacteria Urine HCG, Qual Urine Opiates Screen Negative Urine Methadone Screen Negative Ur Barbiturates Screen Negative Ur Phencyclidine Scrn Negative Ur Amphetamines Screen Negative U Benzodiazepines Scrn Negative U Oth Cocaine Metabols Positive H U Cannabinoids Screen Negative
[2017-07-31 20:42] LABS: CK-MB 0.31 ng/mL (0.0-3.38)
[2017-07-31] MEDS: oxyCODONE 5 mg Immediate Release Tab PO PRN (21:14)
[2017-08-01 05:34] LABS: CK-MB 0.23 ng/mL (0.0-3.38)
[2017-08-01] MEDS: Pantoprazole 40 mg EC Tab PO SCH (09:52)
[2017-08-01] MEDS: Enoxaparin 40 mg Syringe SC SCH (09:52)
[2017-08-01] MEDS: POLYETHYLENE GLYCOL 3350 17 GM/Dose PACKET PO SCH (09:53)
--- NOTE | 2017-08-01 12:18 | CP.PCM.CON ---
History of Present Illness - History of Present Illness History of Present Illness: Ms. Hsieh is a 46 year old female with history of depression, and stage IV colon cancer with liver metastasis dx in 05/2014, admitted with chest pain. Her chemotherapy had been on hold for several months due to orthopedic surgery, complicated by infection. She notes to left sided chest pain with numbness radiating down her arm. Her pancytopenia was felt to be possibly related to alcohol and possible liver disease. A CT chest revealed an 11.6 cm lung mass. Past medical history: depression, anemia. Past surgical history: Knee surgery, portacatheter placement and removal Family history: Denies hematologic and oncologic problems Social history: Denies tobacco, alcohol, and illicit drug use. Allergies: NKA Review of systems: All remaining review of systems including HEENT, cardiovascular, respiratory, gastrointestinal, genitourinary, musculoskeletal, dermatologic, psychiatric, neurologic are negative unless mentioned in the history of present illness. Past Patient History - Infectious Disease Hx of Infectious Diseases: None - Past Medical History & Family History Past Medical History?: Yes - Past Social History Smoking Status: Never Smoked - CARDIAC Hx Cardiac Disorders: Yes Hx Hypertension: Yes - PULMONARY Hx Respiratory Disorders: Yes Hx Asthma: Yes - NEUROLOGICAL Hx Neurological Disorder: No - HEENT Hx HEENT Problems: No - RENAL Hx Chronic Kidney Disease: No - ENDOCRINE/METABOLIC Hx Endocrine Disorders: No - HEMATOLOGICAL/ONCOLOGICAL Hx Blood Disorders: Yes Hx Anemia: Yes - INTEGUMENTARY Hx Dermatological Problems: No - MUSCULOSKELETAL/RHEUMATOLOGICAL Hx Arthritis: Yes (osteoarthritis) Hx Falls: No Hx Rheumatoid Arthritis: Yes - GASTROINTESTINAL Hx Bowel Surgery: Yes Other/Comment: COLON CANCER STAGE 4 WITH CHEMOTHERAPY, last chemo was September 2016. R side port a cath - GENITOURINARY/GYNECOLOGICAL Hx Genitourinary Disorders: No - PSYCHIATRIC Hx Substance Use: Yes (positive cocaine) - SURGICAL HISTORY Hx Surgeries: Yes (SEE COMMENT) Hx Orthopedic Surgery: Yes (left knee TKR) Hx Vascular Access Device: Yes (RIGHT SUBCLAVIAN) Other/Comment: colon cancer surgery april 2014 to remove tumor, rt side subclavian Port - ANESTHESIA Hx Anesthesia: Yes Hx Anesthesia Reactions: No Hx Malignant Hyperthermia: No Has any member of the family had a problem w/ anesthesia?: No Meds Allergies/Adverse Reactions: Allergies Allergy/AdvReac Type Severity Reaction Status Date / Time No Known Allergies Allergy Verified 07/31/17 12:48 - Medications Medications: Current Medications Amlodipine Besylate (Norvasc) 5 mg PO STAT [facility] Last Admin: 08/01/17 09:52 Dose: 5 mg Aspirin (Aspirin) 325 mg PO DAILY [facility] Last Admin: 08/01/17 09:52 Dose: 325 mg Clonazepam (Klonopin) 2 mg PO TID [facility] Last Admin: 08/01/17 09:52 Dose: 2 mg Duloxetine HCl (Cymbalta) 60 mg PO DAILY [facility] Last Admin: 08/01/17 09:52 Dose: 60 mg Enoxaparin Sodium (Lovenox) 40 mg SC DAILY [facility] Last Admin: 08/01/17 09:52 Dose: 40 mg Escitalopram Oxalate (Lexapro) 20 mg PO DAILY [facility] Last Admin: 08/01/17 09:52 Dose: 20 mg Ibuprofen (Motrin Tab) 800 mg PO Q6 PRN PRN Reason: Pain, moderate (4-7) Oxycodone HCl (Oxycodone Immediate Release Tab) 15 mg PO Q3H PRN PRN Reason: Pain, moderate (4-7) Last Admin: 07/31/17 21:14 Dose: 15 mg Pantoprazole Sodium (Protonix Ec Tab) 40 mg PO DAILY [facility] Last Admin: 08/01/17 09:52 Dose: 40 mg Polyethylene Glycol (Miralax) 17 gm PO DAILY [facility] Last Admin: 08/01/17 09:53 Dose: Not Given Risperidone (Risperdal Tab) 2 mg PO BID [facility] Last Admin: 08/01/17 09:52 Dose: 2 mg Trazodone HCl (Desyrel) 50 mg PO [facility] Last Admin: 07/31/17 21:13 Dose: 50 mg Zolpidem Tartrate (Ambien) 10 mg PO [facility] Last Admin: 07/31/17 21:14 Dose: 10 mg Physical Exam - Head Exam Head Exam: ATRAUMATIC - Eye Exam Eye Exam: Normal appearance - ENT Exam ENT Exam: Mucous Membranes Dry - Respiratory Exam Respiratory Exam: NORMAL BREATHING PATTERN - Cardiovascular Exam Cardiovascular Exam: +S1, +S2 - GI/Abdominal Exam GI & Abdominal Exam: Normal Bowel Sounds - Extremities Exam Extremities exam: Positive for: pedal edema - Neurological Exam Neurological exam: Oriented x3 - Psychiatric Exam Psychiatric exam: Normal Affect, Normal Mood - Skin Skin Exam: Warm Results - Vital Signs Recent Vital Signs: Last Vital Signs Temp 97.6 F 08/01/17 07:00 Pulse 81 08/01/17 07:55 Resp 20 08/01/17 07:00 BP 143/90 08/01/17 07:00 Pulse Ox 96 08/01/17 07:00 - Labs Result Diagrams: 07/31/17 14:10 07/31/17 14:10 Labs: Laboratory Results - last 24 hr 07/31/17 07/31/17 07/31/17 14:10 14:10 14:10 WBC 4.3 L RBC 4.52 Hgb 10.9 L Hct 33.6 L MCV 74.4 L MCH 24.2 L MCHC 32.5 L RDW 16.9 H Plt Count 117 L MPV 8.7 Neut % (Auto) 76.6 H Lymph % (Auto) 16.6 L [place] % (Auto) 6.2 Eos % (Auto) 0.4 Baso % (Auto) 0.2 Neut # (Auto) 3.3 Lymph # (Auto) 0.7 L [place] # (Auto) 0.3 Eos # (Auto) 0.0 Baso # (Auto) 0.0 Differential Comment Sodium 141 Potassium 3.6 Chloride 104 Carbon Dioxide 27 Anion Gap 12 BUN 7 Creatinine 0.7 Est GFR ( Amer) > 60 Est GFR (Non-Af Amer) > 60 Random Glucose 93 Calcium 8.7 Total Bilirubin 0.6 AST 23 ALT 20 Alkaline Phosphatase 74 Total Creatine Kinase 43 CK-MB (Mass) 0.26 Troponin I < 0.0120 Total Protein 6.4 Albumin 3.5 Globulin 3.0 Albumin/Globulin Ratio 1.2 Urine Color Straw Urine Clarity Clear Urine pH 7.0 Ur Specific [place] 1.004 Urine Protein Negative Urine Glucose (UA) Normal Urine Ketones Negative Urine Blood Negative Urine Nitrate Negative Urine Bilirubin Negative Urine Urobilinogen Normal Ur Leukocyte Esterase Neg Urine RBC (Auto) < 1 Ur Squamous Epith Cells 1 Urine Bacteria Rare Urine HCG, Qual Negative Urine Opiates Screen Urine Methadone Screen Ur Barbiturates Screen Ur Phencyclidine Scrn Ur Amphetamines Screen U Benzodiazepines Scrn U Oth Cocaine Metabols U Cannabinoids Screen 07/31/17 07/31/17 08/01/17 14:10 20:09 05:06 WBC RBC Hgb Hct MCV MCH MCHC RDW Plt Count MPV Neut % (Auto) Lymph % (Auto) [place] % (Auto) Eos % (Auto) Baso % (Auto) Neut # (Auto) Lymph # (Auto) [place] # (Auto) Eos # (Auto) Baso # (Auto) Differential Comment Sodium Potassium Chloride Carbon Dioxide Anion Gap BUN Creatinine Est GFR ( Amer) Est GFR (Non-Af Amer) Random Glucose Calcium Total Bilirubin AST ALT Alkaline Phosphatase Total Creatine Kinase 26 L 31 CK-MB (Mass) 0.31 0.23 Troponin I < 0.0120 < 0.0120 Total Protein Albumin Globulin Albumin/Globulin Ratio Urine Color Urine Clarity Urine pH Ur Specific [place] Urine Protein Urine Glucose (UA) Urine Ketones Urine Blood Urine Nitrate Urine Bilirubin Urine Urobilinogen Ur Leukocyte Esterase Urine RBC (Auto) Ur Squamous Epith Cells Urine Bacteria Urine HCG, Qual Urine Opiates Screen Negative Urine Methadone Screen Negative Ur Barbiturates Screen Negative Ur Phencyclidine Scrn Negative Ur Amphetamines Screen Negative U Benzodiazepines Scrn Negative U Oth Cocaine Metabols Positive H U Cannabinoids Screen Negative Assessment & Plan (1) Lung mass Assessment and Plan: rule out metastasis pulmonary evaluation Status: Acute (2) Pancytopenia Assessment and Plan: ? alcohol related ? psych medication rule out iron deficiency Status: Acute (3) Colon cancer Assessment and Plan: stage IV outpatient treatment Thank you for this interesting consult. Status: Acute
--- NOTE | 2017-08-01 14:16 | CP.PCM.CON ---
History of Present Illness - History of Present Illness History of Present Illness: Ms. Hsieh is a 46 year old female with history of depression, and stage IV colon cancer with liver metastasis dx in 05/2014, admitted with chest pain. Her chemotherapy had been on hold for several months due to orthopedic surgery, complicated by infection. She notes to left sided chest pain with numbness radiating down her arm. > No heaviness or associated CHF,pre-syncope, diaphoresis or palpitation. Her pancytopenia was felt to be possibly related to alcohol and possible liver disease. A CT chest revealed an 11.6 cm lung mass. Past medical history: depression, anemia. Past surgical history: Knee surgery, portacatheter placement and removal Family history: Denies hematologic and oncologic problems Social history: Denies tobacco, alcohol, and illicit drug use. Allergies: NKA Review of systems: All remaining review of systems including HEENT, cardiovascular, respiratory, gastrointestinal, genitourinary, musculoskeletal, dermatologic, psychiatric, neurologic are negative unless mentioned in the history of present illness. Past Patient History - Infectious Disease Hx of Infectious Diseases: None - Past Medical History & Family History Past Medical History?: Yes - Past Social History Smoking Status: Never Smoked - CARDIAC Hx Cardiac Disorders: Yes Hx Hypertension: Yes - PULMONARY Hx Respiratory Disorders: Yes Hx Asthma: Yes - NEUROLOGICAL Hx Neurological Disorder: No - HEENT Hx HEENT Problems: No - RENAL Hx Chronic Kidney Disease: No - ENDOCRINE/METABOLIC Hx Endocrine Disorders: No - HEMATOLOGICAL/ONCOLOGICAL Hx Blood Disorders: Yes Hx Anemia: Yes - INTEGUMENTARY Hx Dermatological Problems: No - MUSCULOSKELETAL/RHEUMATOLOGICAL Hx Arthritis: Yes (osteoarthritis) Hx Falls: No Hx Rheumatoid Arthritis: Yes - GASTROINTESTINAL Hx Bowel Surgery: Yes Other/Comment: COLON CANCER STAGE 4 WITH CHEMOTHERAPY, last chemo was September 2016. R side port a cath - GENITOURINARY/GYNECOLOGICAL Hx Genitourinary Disorders: No - PSYCHIATRIC Hx Substance Use: Yes (positive cocaine) - SURGICAL HISTORY Hx Surgeries: Yes (SEE COMMENT) Hx Orthopedic Surgery: Yes (left knee TKR) Hx Vascular Access Device: Yes (RIGHT SUBCLAVIAN) Other/Comment: colon cancer surgery april 2014 to remove tumor, rt side subclavian Port - ANESTHESIA Hx Anesthesia: Yes Hx Anesthesia Reactions: No Hx Malignant Hyperthermia: No Has any member of the family had a problem w/ anesthesia?: No Meds Allergies/Adverse Reactions: Allergies Allergy/AdvReac Type Severity Reaction Status Date / Time No Known Allergies Allergy Verified 07/31/17 12:48 - Medications Medications: Current Medications Amlodipine Besylate (Norvasc) 5 mg PO STAT [facility] Last Admin: 08/01/17 09:52 Dose: 5 mg Aspirin (Aspirin) 325 mg PO DAILY [facility] Last Admin: 08/01/17 09:52 Dose: 325 mg Clonazepam (Klonopin) 2 mg PO TID [facility] Last Admin: 08/01/17 09:52 Dose: 2 mg Duloxetine HCl (Cymbalta) 60 mg PO DAILY [facility] Last Admin: 08/01/17 09:52 Dose: 60 mg Enoxaparin Sodium (Lovenox) 40 mg SC DAILY [facility] Last Admin: 08/01/17 09:52 Dose: 40 mg Escitalopram Oxalate (Lexapro) 20 mg PO DAILY [facility] Last Admin: 08/01/17 09:52 Dose: 20 mg Ibuprofen (Motrin Tab) 800 mg PO Q6 PRN PRN Reason: Pain, moderate (4-7) Oxycodone HCl (Oxycodone Immediate Release Tab) 15 mg PO Q3H PRN PRN Reason: Pain, moderate (4-7) Last Admin: 07/31/17 21:14 Dose: 15 mg Pantoprazole Sodium (Protonix Ec Tab) 40 mg PO DAILY [facility] Last Admin: 08/01/17 09:52 Dose: 40 mg Polyethylene Glycol (Miralax) 17 gm PO DAILY [facility] Last Admin: 08/01/17 09:53 Dose: Not Given Risperidone (Risperdal Tab) 2 mg PO BID [facility] Last Admin: 08/01/17 09:52 Dose: 2 mg Trazodone HCl (Desyrel) 50 mg PO [facility] Last Admin: 07/31/17 21:13 Dose: 50 mg Zolpidem Tartrate (Ambien) 10 mg PO [facility] Last Admin: 07/31/17 21:14 Dose: 10 mg Physical Exam - Constitutional Appears: No Acute Distress - Head Exam Head Exam: ATRAUMATIC, NORMAL INSPECTION, NORMOCEPHALIC - Eye Exam Eye Exam: EOMI, Normal appearance, PERRL Pupil Exam: NORMAL ACCOMODATION, PERRL - ENT Exam ENT Exam: Mucous Membranes Moist, Normal Exam - Neck Exam Neck exam: Positive for: Normal Inspection - Respiratory Exam Respiratory Exam: Clear to Auscultation Bilateral, NORMAL BREATHING PATTERN - Cardiovascular Exam Cardiovascular Exam: REGULAR RHYTHM, +S1, +S2. absent: +S4, Systolic Murmur - GI/Abdominal Exam GI & Abdominal Exam: Normal Bowel Sounds, Soft. absent: Tenderness - Extremities Exam Extremities exam: Positive for: normal inspection, pedal pulses present. Negative for: calf tenderness, pedal edema - Neurological Exam Neurological exam: Alert, CN II-XII Intact, Oriented x3 - Skin Skin Exam: Normal Color, Warm Results - Vital Signs Recent Vital Signs: Last Vital Signs Temp 97.6 F 08/01/17 07:00 Pulse 81 08/01/17 07:55 Resp 20 08/01/17 07:00 BP 143/90 08/01/17 07:00 Pulse Ox 96 08/01/17 07:00 - Labs Result Diagrams: 07/31/17 14:10 07/31/17 14:10 Labs: Laboratory Results - last 24 hr 07/31/17 07/31/17 07/31/17 14:10 14:10 14:10 WBC 4.3 L RBC 4.52 Hgb 10.9 L Hct 33.6 L MCV 74.4 L MCH 24.2 L MCHC 32.5 L RDW 16.9 H Plt Count 117 L MPV 8.7 Neut % (Auto) 76.6 H Lymph % (Auto) 16.6 L [place] % (Auto) 6.2 Eos % (Auto) 0.4 Baso % (Auto) 0.2 Neut # (Auto) 3.3 Lymph # (Auto) 0.7 L [place] # (Auto) 0.3 Eos # (Auto) 0.0 Baso # (Auto) 0.0 Differential Comment Sodium 141 Potassium 3.6 Chloride 104 Carbon Dioxide 27 Anion Gap 12 BUN 7 Creatinine 0.7 Est GFR ( Amer) > 60 Est GFR (Non-Af Amer) > 60 Random Glucose 93 Calcium 8.7 Total Bilirubin 0.6 AST 23 ALT 20 Alkaline Phosphatase 74 Total Creatine Kinase 43 CK-MB (Mass) 0.26 Troponin I < 0.0120 Total Protein 6.4 Albumin 3.5 Globulin 3.0 Albumin/Globulin Ratio 1.2 Urine Color Straw Urine Clarity Clear Urine pH 7.0 Ur Specific [place] 1.004 Urine Protein Negative Urine Glucose (UA) Normal Urine Ketones Negative Urine Blood Negative Urine Nitrate Negative Urine Bilirubin Negative Urine Urobilinogen Normal Ur Leukocyte Esterase Neg Urine RBC (Auto) < 1 Ur Squamous Epith Cells 1 Urine Bacteria Rare Urine HCG, Qual Negative Urine Opiates Screen Urine Methadone Screen Ur Barbiturates Screen Ur Phencyclidine Scrn Ur Amphetamines Screen U Benzodiazepines Scrn U Oth Cocaine Metabols U Cannabinoids Screen 07/31/17 07/31/17 08/01/17 14:10 20:09 05:06 WBC RBC Hgb Hct MCV MCH MCHC RDW Plt Count MPV Neut % (Auto) Lymph % (Auto) [place] % (Auto) Eos % (Auto) Baso % (Auto) Neut # (Auto) Lymph # (Auto) [place] # (Auto) Eos # (Auto) Baso # (Auto) Differential Comment Sodium Potassium Chloride Carbon Dioxide Anion Gap BUN Creatinine Est GFR ( Amer) Est GFR (Non-Af Amer) Random Glucose Calcium Total Bilirubin AST ALT Alkaline Phosphatase Total Creatine Kinase 26 L 31 CK-MB (Mass) 0.31 0.23 Troponin I < 0.0120 < 0.0120 Total Protein Albumin Globulin Albumin/Globulin Ratio Urine Color Urine Clarity Urine pH Ur Specific [place] Urine Protein Urine Glucose (UA) Urine Ketones Urine Blood Urine Nitrate Urine Bilirubin Urine Urobilinogen Ur Leukocyte Esterase Urine RBC (Auto) Ur Squamous Epith Cells Urine Bacteria Urine HCG, Qual Urine Opiates Screen Negative Urine Methadone Screen Negative Ur Barbiturates Screen Negative Ur Phencyclidine Scrn Negative Ur Amphetamines Screen Negative U Benzodiazepines Scrn Negative U Oth Cocaine Metabols Positive H U Cannabinoids Screen Negative - EKG Data EKG Interpreted by: Myself Rate: Normal Assessment & Plan - Assessment and Plan (Free Text) Assessment: 46 y/o with known chronic diastolic dysfunction and normal stress echo > recent knee surgery > stage IV colon cancer with liver metastasis dx in 05/2014 > with findings of lung nodule on CT this admission EKG is normal, No volume overload, AK ruled out, BP is well controlled > Given normal stress echo recently low suspicion for significant coronary artery disease. > CP sx's are non-cardiac cont medical therapy; Patient is acceptable risk to proceed with any potential eval or Bx for lung nodule: may stop ASA prior if needed to reduce any high risk bleeding risk. Will sign off call if questions.
[2017-08-01] MEDS: oxyCODONE 5 mg Immediate Release Tab PO PRN (14:23)
--- NOTE | 2017-08-01 17:59 | CP.PCM.CON ---
History of Present Illness - History of Present Illness History of Present Illness: Reason for Consult - Lung nodule Patient is a 46 year old female with a past medical history of Stage IV colon cancer diagnosed in 2014, currently being treated with chemotherapy. Patient presented to ED on 07/31/2017 for chest pain radiating down the left arm, but EKG showed no new findings and troponins were negative x3. CXR showed no active disease, but CT chest with PE protocol showed an elliptical nodule in the right upper lung bordering the pleural surface. Patient seen and examined and in no apparent respiratory distress. Patient saturating at 96% on room air. Assessment/Plan 1. Lung nodule 11.6 mm elliptical-shaped lung nodule suspicious for metastatic disease from the lung. Due to position of the nodule near the pleura and size of nodule, bronchoscopic biopsy not appropriate. Patient following with Dr. Heath for chemotherapy; Will proceed with either PET scan or CT guided biopsy per his recommendations. 2. Chest pain No evidence of PE or pneumonia per CT scan with CXR or CT scan with PE protocol. Follow with cardio recommendations. 3. Pancytopenia Likely secondary to pneumonia. Platelets = 117; Not a contraindication to possible CT guided biopsy. Continue to follow and re-check CBC prior to invasive procedures. Past Patient History - Infectious Disease Hx of Infectious Diseases: None - Past Medical History & Family History Past Medical History?: Yes - Past Social History Smoking Status: Never Smoked - CARDIAC Hx Cardiac Disorders: Yes Hx Hypertension: Yes - PULMONARY Hx Respiratory Disorders: Yes Hx Asthma: Yes - NEUROLOGICAL Hx Neurological Disorder: No - HEENT Hx HEENT Problems: No - RENAL Hx Chronic Kidney Disease: No - ENDOCRINE/METABOLIC Hx Endocrine Disorders: No - HEMATOLOGICAL/ONCOLOGICAL Hx Blood Disorders: Yes Hx Anemia: Yes - INTEGUMENTARY Hx Dermatological Problems: No - MUSCULOSKELETAL/RHEUMATOLOGICAL Hx Arthritis: Yes (osteoarthritis) Hx Falls: No Hx Rheumatoid Arthritis: Yes - GASTROINTESTINAL Hx Bowel Surgery: Yes Other/Comment: COLON CANCER STAGE 4 WITH CHEMOTHERAPY, last chemo was September 2016. R side port a cath - GENITOURINARY/GYNECOLOGICAL Hx Genitourinary Disorders: No - PSYCHIATRIC Hx Substance Use: Yes (positive cocaine) - SURGICAL HISTORY Hx Surgeries: Yes (SEE COMMENT) Hx Orthopedic Surgery: Yes (left knee TKR) Hx Vascular Access Device: Yes (RIGHT SUBCLAVIAN) Other/Comment: colon cancer surgery april 2014 to remove tumor, rt side subclavian Port - ANESTHESIA Hx Anesthesia: Yes Hx Anesthesia Reactions: No Hx Malignant Hyperthermia: No Has any member of the family had a problem w/ anesthesia?: No Meds Allergies/Adverse Reactions: Allergies Allergy/AdvReac Type Severity Reaction Status Date / Time No Known Allergies Allergy Verified 07/31/17 12:48 - Medications Medications: Current Medications Amlodipine Besylate (Norvasc) 5 mg PO STAT [facility] Last Admin: 08/01/17 09:52 Dose: 5 mg Aspirin (Aspirin) 325 mg PO DAILY [facility] Last Admin: 08/01/17 09:52 Dose: 325 mg Clonazepam (Klonopin) 2 mg PO TID [facility] Last Admin: 08/01/17 17:10 Dose: 2 mg Duloxetine HCl (Cymbalta) 60 mg PO DAILY [facility] Last Admin: 08/01/17 09:52 Dose: 60 mg Enoxaparin Sodium (Lovenox) 40 mg SC DAILY [facility] Last Admin: 08/01/17 09:52 Dose: 40 mg Escitalopram Oxalate (Lexapro) 20 mg PO DAILY [facility] Last Admin: 08/01/17 09:52 Dose: 20 mg Ibuprofen (Motrin Tab) 800 mg PO Q6 PRN PRN Reason: Pain, moderate (4-7) Oxycodone HCl (Oxycodone Immediate Release Tab) 15 mg PO Q3H PRN PRN Reason: Pain, moderate (4-7) Last Admin: 08/01/17 14:23 Dose: 15 mg Pantoprazole Sodium (Protonix Ec Tab) 40 mg PO DAILY [facility] Last Admin: 08/01/17 09:52 Dose: 40 mg Polyethylene Glycol (Miralax) 17 gm PO DAILY [facility] Last Admin: 08/01/17 09:53 Dose: Not Given Risperidone (Risperdal Tab) 2 mg PO BID [facility] Last Admin: 08/01/17 17:10 Dose: 2 mg Trazodone HCl (Desyrel) 50 mg PO HS [facility] Last Admin: 07/31/17 21:13 Dose: 50 mg Zolpidem Tartrate (Ambien) 10 mg PO HS [facility] Last Admin: 07/31/17 21:14 Dose: 10 mg Results - Vital Signs Recent Vital Signs: Last Vital Signs Temp 97.7 F 08/01/17 15:00 Pulse 76 08/01/17 16:27 Resp 20 08/01/17 15:00 BP 116/75 08/01/17 15:00 Pulse Ox 96 08/01/17 15:00 - Labs Result Diagrams: 07/31/17 14:10 07/31/17 14:10 Labs: Laboratory Results - last 24 hr 07/31/17 08/01/17 20:09 05:06 Total Creatine Kinase 26 L 31 CK-MB (Mass) 0.31 0.23 Troponin I < 0.0120 < 0.0120
[2017-08-01 18:16] LABS: CK-MB < 0.22 ng/mL (0.0-3.38)
--- NOTE | 2017-08-01 19:25 | CP.PCM.PN ---
Subjective - Date & Time of Evaluation Date of Evaluation: 08/01/17 Time of Evaluation: 10:40 - Subjective Subjective: afebrile no acute distress awaiting cardio, pulm, heme onc evals Objective - Vital Signs/Intake and Output Vital Signs (last 24 hours): Temp Pulse Resp BP Pulse Ox 97.7 F 76 20 116/75 96 08/01/17 15:00 08/01/17 16:27 08/01/17 15:00 08/01/17 15:00 08/01/17 15:00 - Medications Medications: Current Medications Amlodipine Besylate (Norvasc) 5 mg PO STAT [facility] Last Admin: 08/01/17 09:52 Dose: 5 mg Aspirin (Aspirin) 325 mg PO DAILY [facility] Last Admin: 08/01/17 09:52 Dose: 325 mg Clonazepam (Klonopin) 2 mg PO TID [facility] Last Admin: 08/01/17 17:10 Dose: 2 mg Duloxetine HCl (Cymbalta) 60 mg PO DAILY [facility] Last Admin: 08/01/17 09:52 Dose: 60 mg Enoxaparin Sodium (Lovenox) 40 mg SC DAILY [facility] Last Admin: 08/01/17 09:52 Dose: 40 mg Escitalopram Oxalate (Lexapro) 20 mg PO DAILY [facility] Last Admin: 08/01/17 09:52 Dose: 20 mg Ibuprofen (Motrin Tab) 800 mg PO Q6 PRN PRN Reason: Pain, moderate (4-7) Oxycodone HCl (Oxycodone Immediate Release Tab) 15 mg PO Q3H PRN PRN Reason: Pain, moderate (4-7) Last Admin: 08/01/17 14:23 Dose: 15 mg Pantoprazole Sodium (Protonix Ec Tab) 40 mg PO DAILY [facility] Last Admin: 08/01/17 09:52 Dose: 40 mg Polyethylene Glycol (Miralax) 17 gm PO DAILY [facility] Last Admin: 08/01/17 09:53 Dose: Not Given Risperidone (Risperdal Tab) 2 mg PO BID [facility] Last Admin: 08/01/17 17:10 Dose: 2 mg Trazodone HCl (Desyrel) 50 mg PO HS [facility] Last Admin: 07/31/17 21:13 Dose: 50 mg Zolpidem Tartrate (Ambien) 10 mg PO HS [facility] Last Admin: 07/31/17 21:14 Dose: 10 mg - Labs Labs: 07/31/17 14:10 07/31/17 14:10 - Constitutional Appears: Well - Head Exam Head Exam: ATRAUMATIC, NORMAL INSPECTION, NORMOCEPHALIC - Eye Exam Eye Exam: EOMI, Normal appearance, PERRL Pupil Exam: NORMAL ACCOMODATION, PERRL - ENT Exam ENT Exam: Mucous Membranes Moist, Normal Exam - Neck Exam Neck Exam: Full ROM, Normal Inspection. absent: Lymphadenopathy - Respiratory Exam Respiratory Exam: Decreased Breath Sounds - Cardiovascular Exam Cardiovascular Exam: REGULAR RHYTHM, +S1, +S2 - GI/Abdominal Exam GI & Abdominal Exam: Soft, Diminished Bowel Sounds - Rectal Exam Rectal Exam: Deferred - Neurological Exam Neurological Exam: Alert, Awake, Oriented x3 Assessment and Plan (1) Abdominal pain Status: Acute (2) Acute renal insufficiency Status: Acute (3) Anemia Status: Acute (4) Anxiety Status: Acute (5) Arm sprain Status: Acute (6) Arthralgia of knee, left Status: Acute (7) Arthritis Status: Acute (8) Cellulitis Status: Acute (9) Cellulitis and abscess Status: Acute (10) Cellulitis of left knee Status: Acute (11) Chemotherapy adverse reaction Status: Acute (12) Chest pain Status: Acute (13) Chest pain Status: Acute (14) Closed head injury Status: Acute (15) Cocaine abuse Status: Acute (16) Colon cancer Status: Acute (17) Colon cancer metastasized to liver Status: Acute (18) Colonic mass Status: Acute (19) Constipation Status: Acute (20) Constipation Status: Acute (21) Contusion of chest Status: Acute (22) Contusion of knee, left Status: Acute (23) Contusion of knee, right Status: Acute (24) Contusion of lower back Status: Acute (25) Dizziness Status: Acute (26) Duodenitis Status: Acute (27) Dyspnea Status: Acute (28) External hemorrhoid, bleeding Status: Acute (29) Fall in bathtub Status: Acute (30) Fever Status: Acute (31) Gastrointestinal hemorrhage Status: Acute (32) Head injury Status: Acute (33) Head trauma Status: Acute (34) History of rectal bleeding Status: Acute (35) Infected abrasion Status: Acute (36) Infection due to portacath Status: Acute (37) Joint pain Status: Acute (38) Knee contusion Status: Acute (39) Knee injury Status: Acute (40) Knee pain Status: Acute (41) Knee pain, bilateral Status: Acute (42) Knee sprain, bilateral Status: Acute (43) Left sided abdominal pain Status: Acute (44) Leukocytosis Status: Acute (45) Liver lesion Status: Acute (46) Lung mass Status: Acute (47) Muscle pain Status: Acute (48) Nausea Status: Acute (49) Nodule of right lung Status: Acute (50) Osteoarthritis Status: Acute (51) Pancytopenia Status: Acute (52) Pancytopenia due to antineoplastic chemotherapy Status: Acute (53) Rectal bleeding Status: Acute (54) Shoulder contusion Status: Acute (55) Shoulder pain Status: Acute (56) Shoulder sprain Status: Acute (57) Status post chemotherapy Status: Acute (58) Total knee replacement status Status: Acute (59) Uncontrolled hypertension Status: Acute (60) Vertigo Status: Acute (61) Anxiety Status: Chronic (62) Iron deficiency anemia Status: Chronic - Assessment and Plan (Free Text) Plan: meds reviewed leighann as ordered f/u labs cardio dr ruvalcaba pulmikhail jiménez heme onc dr guerrero
--- NOTE | 2017-08-01 19:48 | CARD ---
APPROVED REPORT EKG Measurement Heart [id number] <Conclusion> Normal sinus rhythm Minimal voltage criteria for LVH, may be normal variant Poor R wve progression Abnormal Electrocardiogram
[2017-08-02 07:52] LABS: FERRITIN 11.3 ng/mL
[2017-08-02] MEDS: Pantoprazole 40 mg EC Tab PO SCH (10:43)
[2017-08-02] MEDS: POLYETHYLENE GLYCOL 3350 17 GM/Dose PACKET PO SCH (10:45)
[2017-08-02] MEDS: Enoxaparin 40 mg Syringe SC SCH (10:46)
--- NOTE | 2017-08-02 12:51 | CP.PCM.PN ---
Subjective - Date & Time of Evaluation Date of Evaluation: 08/02/17 Time of Evaluation: 08:30 - Subjective Subjective: patient seen and examined Lying comfortably in no acute distress No chest pain For CT-guided biopsy Continue present treatment Objective - Vital Signs/Intake and Output Vital Signs (last 24 hours): Temp Pulse Resp BP Pulse Ox 97.5 F L 102 H 20 137/91 H 98 08/02/17 08:00 08/02/17 08:00 08/02/17 08:00 08/02/17 08:00 08/02/17 08:00 Intake and Output: 08/02/17 08/02/17 06:59 18:59 Intake Total 1000 Balance 1000 - Medications Medications: Current Medications Amlodipine Besylate (Norvasc) 5 mg PO STAT [facility] Last Admin: 08/01/17 09:52 Dose: 5 mg Aspirin (Aspirin) 325 mg PO DAILY [facility] Last Admin: 08/02/17 10:44 Dose: 325 mg Clonazepam (Klonopin) 2 mg PO TID [facility] Last Admin: 08/02/17 10:43 Dose: 2 mg Duloxetine HCl (Cymbalta) 60 mg PO DAILY [facility] Last Admin: 08/02/17 10:45 Dose: 60 mg Enoxaparin Sodium (Lovenox) 40 mg SC DAILY [facility] Last Admin: 08/02/17 10:46 Dose: 40 mg Escitalopram Oxalate (Lexapro) 20 mg PO DAILY [facility] Last Admin: 08/02/17 10:45 Dose: 20 mg Ibuprofen (Motrin Tab) 800 mg PO Q6 PRN PRN Reason: Pain, moderate (4-7) Oxycodone HCl (Oxycodone Immediate Release Tab) 15 mg PO Q3H PRN PRN Reason: Pain, moderate (4-7) Last Admin: 08/01/17 14:23 Dose: 15 mg Pantoprazole Sodium (Protonix Ec Tab) 40 mg PO DAILY [facility] Last Admin: 08/02/17 10:43 Dose: 40 mg Polyethylene Glycol (Miralax) 17 gm PO DAILY [facility] Last Admin: 08/02/17 10:45 Dose: 17 gm Risperidone (Risperdal Tab) 2 mg PO BID [facility] Last Admin: 08/02/17 10:44 Dose: 2 mg Trazodone HCl (Desyrel) 50 mg PO HS [facility] Last Admin: 08/01/17 21:13 Dose: 50 mg Zolpidem Tartrate (Ambien) 10 mg PO HS [facility] Last Admin: 08/01/17 21:13 Dose: 10 mg - Labs Labs: 07/31/17 14:10 07/31/17 14:10
[2017-08-02] MEDS: oxyCODONE 5 mg Immediate Release Tab PO PRN (19:00)
--- NOTE | 2017-08-02 19:35 | CP.PCM.PN ---
Subjective - Date & Time of Evaluation Date of Evaluation: 08/02/17 Time of Evaluation: 10:00 - Subjective Subjective: clinically same for CT-guided lung bx per Dr Chappell s/p cardio evelsa s/p Dr Kumar oakes onc Objective - Vital Signs/Intake and Output Vital Signs (last 24 hours): Temp Pulse Resp BP Pulse Ox 97.7 F 109 H 20 150/94 H 100 08/02/17 15:53 08/02/17 15:57 08/02/17 15:53 08/02/17 15:53 08/02/17 15:53 - Medications Medications: Current Medications Amlodipine Besylate (Norvasc) 5 mg PO STAT [facility] Last Admin: 08/01/17 09:52 Dose: 5 mg Aspirin (Aspirin) 325 mg PO DAILY [facility] Last Admin: 08/02/17 10:44 Dose: 325 mg Clonazepam (Klonopin) 2 mg PO TID [facility] Last Admin: 08/02/17 19:00 Dose: 2 mg Duloxetine HCl (Cymbalta) 60 mg PO DAILY [facility] Last Admin: 08/02/17 10:45 Dose: 60 mg Enoxaparin Sodium (Lovenox) 40 mg SC DAILY [facility] Last Admin: 08/02/17 10:46 Dose: 40 mg Escitalopram Oxalate (Lexapro) 20 mg PO DAILY [facility] Last Admin: 08/02/17 10:45 Dose: 20 mg Ibuprofen (Motrin Tab) 800 mg PO Q6 PRN PRN Reason: Pain, moderate (4-7) Oxycodone HCl (Oxycodone Immediate Release Tab) 15 mg PO Q3H PRN PRN Reason: Pain, moderate (4-7) Last Admin: 08/02/17 19:00 Dose: 15 mg Pantoprazole Sodium (Protonix Ec Tab) 40 mg PO DAILY [facility] Last Admin: 08/02/17 10:43 Dose: 40 mg Polyethylene Glycol (Miralax) 17 gm PO DAILY [facility] Last Admin: 08/02/17 10:45 Dose: 17 gm Risperidone (Risperdal Tab) 2 mg PO BID [facility] Last Admin: 08/02/17 19:00 Dose: 2 mg Trazodone HCl (Desyrel) 50 mg PO HS [facility] Last Admin: 08/01/17 21:13 Dose: 50 mg Zolpidem Tartrate (Ambien) 10 mg PO HS [facility] Last Admin: 08/01/17 21:13 Dose: 10 mg - Labs Labs: 07/31/17 14:10 07/31/17 14:10 - Constitutional Appears: Well - Head Exam Head Exam: ATRAUMATIC, NORMAL INSPECTION, NORMOCEPHALIC - Eye Exam Eye Exam: EOMI, Normal appearance, PERRL Pupil Exam: NORMAL ACCOMODATION, PERRL - ENT Exam ENT Exam: Mucous Membranes Moist, Normal Exam - Neck Exam Neck Exam: Full ROM, Normal Inspection. absent: Lymphadenopathy - Respiratory Exam Respiratory Exam: Decreased Breath Sounds - Cardiovascular Exam Cardiovascular Exam: REGULAR RHYTHM, +S1, +S2 - GI/Abdominal Exam GI & Abdominal Exam: Soft, Diminished Bowel Sounds - Rectal Exam Rectal Exam: Deferred - Neurological Exam Neurological Exam: Alert, Awake, Oriented x3 Assessment and Plan (1) Abdominal pain Status: Acute (2) Acute renal insufficiency Status: Acute (3) Anemia Status: Acute (4) Anxiety Status: Acute (5) Arm sprain Status: Acute (6) Arthralgia of knee, left Status: Acute (7) Arthritis Status: Acute (8) Cellulitis Status: Acute (9) Cellulitis and abscess Status: Acute (10) Cellulitis of left knee Status: Acute (11) Chemotherapy adverse reaction Status: Acute (12) Chest pain Status: Acute (13) Chest pain Status: Acute (14) Closed head injury Status: Acute (15) Cocaine abuse Status: Acute (16) Colon cancer Status: Acute (17) Colon cancer metastasized to liver Status: Acute (18) Colonic mass Status: Acute (19) Constipation Status: Acute (20) Constipation Status: Acute (21) Contusion of chest Status: Acute (22) Contusion of knee, left Status: Acute (23) Contusion of knee, right Status: Acute (24) Contusion of lower back Status: Acute (25) Dizziness Status: Acute (26) Duodenitis Status: Acute (27) Dyspnea Status: Acute (28) External hemorrhoid, bleeding Status: Acute (29) Fall in bathtub Status: Acute (30) Fever Status: Acute (31) Gastrointestinal hemorrhage Status: Acute (32) Head injury Status: Acute (33) Head trauma Status: Acute (34) History of rectal bleeding Status: Acute (35) Infected abrasion Status: Acute (36) Infection due to portacath Status: Acute (37) Joint pain Status: Acute (38) Knee contusion Status: Acute (39) Knee injury Status: Acute (40) Knee pain Status: Acute (41) Knee pain, bilateral Status: Acute (42) Knee sprain, bilateral Status: Acute (43) Left sided abdominal pain Status: Acute (44) Leukocytosis Status: Acute (45) Liver lesion Status: Acute (46) Lung mass Status: Acute (47) Muscle pain Status: Acute (48) Nausea Status: Acute (49) Nodule of right lung Status: Acute (50) Osteoarthritis Status: Acute (51) Pancytopenia Status: Acute (52) Pancytopenia due to antineoplastic chemotherapy Status: Acute (53) Rectal bleeding Status: Acute (54) Shoulder contusion Status: Acute (55) Shoulder pain Status: Acute (56) Shoulder sprain Status: Acute (57) Status post chemotherapy Status: Acute (58) Total knee replacement status Status: Acute (59) Uncontrolled hypertension Status: Acute (60) Vertigo Status: Acute (61) Anxiety Status: Chronic (62) Iron deficiency anemia Status: Chronic - Assessment and Plan (Free Text) Plan: meds reviewed leighann meds as ordered Dr Chappell on board for lung bx Dr Youssef cardio follow up recs Dr Heath heme onc leighann as ordered case d/w staff
[2017-08-03] MEDS: oxyCODONE 5 mg Immediate Release Tab PO PRN (05:37)
[2017-08-03] MEDS: Enoxaparin 40 mg Syringe SC SCH (09:45)
[2017-08-03] MEDS: Pantoprazole 40 mg EC Tab PO SCH (09:45)
--- NOTE | 2017-08-03 12:19 | CP.PCM.PN ---
Subjective - Date & Time of Evaluation Date of Evaluation: 08/03/17 Time of Evaluation: 10:20 - Subjective Subjective: patient seen and examined Lying comfortably in no acute distress Denies chest pain Awaiting for lung biopsy Continue present treatment for now Objective - Vital Signs/Intake and Output Vital Signs (last 24 hours): Temp Pulse Resp BP Pulse Ox 97.8 F 85 20 107/72 95 08/03/17 07:05 08/03/17 07:05 08/03/17 07:05 08/03/17 07:05 08/03/17 07:05 Intake and Output: 08/03/17 08/03/17 06:59 18:59 Intake Total 10 Balance 10 - Medications Medications: Current Medications Amlodipine Besylate (Norvasc) 5 mg PO STAT [facility] Last Admin: 08/01/17 09:52 Dose: 5 mg Aspirin (Aspirin) 325 mg PO DAILY [facility] Last Admin: 08/03/17 09:44 Dose: 325 mg Clonazepam (Klonopin) 2 mg PO TID [facility] Last Admin: 08/03/17 09:45 Dose: 2 mg Duloxetine HCl (Cymbalta) 60 mg PO DAILY [facility] Last Admin: 08/03/17 09:44 Dose: 60 mg Enoxaparin Sodium (Lovenox) 40 mg SC DAILY [facility] Last Admin: 08/03/17 09:45 Dose: 40 mg Escitalopram Oxalate (Lexapro) 20 mg PO DAILY [facility] Last Admin: 08/03/17 09:44 Dose: 20 mg Ibuprofen (Motrin Tab) 800 mg PO Q6 PRN PRN Reason: Pain, moderate (4-7) Oxycodone HCl (Oxycodone Immediate Release Tab) 15 mg PO Q3H PRN PRN Reason: Pain, moderate (4-7) Last Admin: 08/03/17 05:37 Dose: 15 mg Pantoprazole Sodium (Protonix Ec Tab) 40 mg PO DAILY [facility] Last Admin: 08/03/17 09:45 Dose: 40 mg Polyethylene Glycol (Miralax) 17 gm PO DAILY [facility] Last Admin: 08/02/17 10:45 Dose: 17 gm Risperidone (Risperdal Tab) 2 mg PO BID [facility] Last Admin: 08/03/17 09:45 Dose: 2 mg Trazodone HCl (Desyrel) 50 mg PO HS [facility] Last Admin: 08/02/17 22:32 Dose: 50 mg Zolpidem Tartrate (Ambien) 10 mg PO HS [facility] Last Admin: 08/02/17 22:32 Dose: 10 mg - Labs Labs: 07/31/17 14:10 07/31/17 14:10
--- NOTE | 2017-08-03 18:42 | CP.PCM.PN ---
Subjective - Date & Time of Evaluation Date of Evaluation: 08/03/17 Time of Evaluation: 10:40 - Subjective Subjective: clinically same awaiting lung biopsy Objective - Vital Signs/Intake and Output Vital Signs (last 24 hours): Temp Pulse Resp BP Pulse Ox 97.4 F L 84 20 134/83 96 08/03/17 15:00 08/03/17 15:00 08/03/17 15:00 08/03/17 15:00 08/03/17 15:00 Intake and Output: 08/03/17 08/03/17 06:59 18:59 Intake Total 10 Balance 10 - Medications Medications: Current Medications Amlodipine Besylate (Norvasc) 5 mg PO STAT [facility] Last Admin: 08/01/17 09:52 Dose: 5 mg Aspirin (Aspirin) 325 mg PO DAILY [facility] Last Admin: 08/03/17 09:44 Dose: 325 mg Clonazepam (Klonopin) 2 mg PO TID [facility] Last Admin: 08/03/17 17:46 Dose: 2 mg Duloxetine HCl (Cymbalta) 60 mg PO DAILY [facility] Last Admin: 08/03/17 09:44 Dose: 60 mg Enoxaparin Sodium (Lovenox) 40 mg SC DAILY [facility] Last Admin: 08/03/17 09:45 Dose: 40 mg Escitalopram Oxalate (Lexapro) 20 mg PO DAILY [facility] Last Admin: 08/03/17 09:44 Dose: 20 mg Ibuprofen (Motrin Tab) 800 mg PO Q6 PRN PRN Reason: Pain, moderate (4-7) Oxycodone HCl (Oxycodone Immediate Release Tab) 15 mg PO Q3H PRN PRN Reason: Pain, moderate (4-7) Last Admin: 08/03/17 05:37 Dose: 15 mg Pantoprazole Sodium (Protonix Ec Tab) 40 mg PO DAILY [facility] Last Admin: 08/03/17 09:45 Dose: 40 mg Polyethylene Glycol (Miralax) 17 gm PO DAILY [facility] Last Admin: 08/02/17 10:45 Dose: 17 gm Risperidone (Risperdal Tab) 2 mg PO BID [facility] Last Admin: 08/03/17 17:45 Dose: 2 mg Trazodone HCl (Desyrel) 50 mg PO HS [facility] Last Admin: 08/02/17 22:32 Dose: 50 mg Zolpidem Tartrate (Ambien) 10 mg PO HS [facility] Last Admin: 08/02/17 22:32 Dose: 10 mg - Labs Labs: 07/31/17 14:10 07/31/17 14:10 - Constitutional Appears: Well - Head Exam Head Exam: ATRAUMATIC, NORMAL INSPECTION, NORMOCEPHALIC - Eye Exam Eye Exam: EOMI, Normal appearance, PERRL Pupil Exam: NORMAL ACCOMODATION, PERRL - ENT Exam ENT Exam: Mucous Membranes Moist, Normal Exam - Neck Exam Neck Exam: Full ROM, Normal Inspection. absent: Lymphadenopathy - Respiratory Exam Respiratory Exam: Decreased Breath Sounds - Cardiovascular Exam Cardiovascular Exam: REGULAR RHYTHM, +S1, +S2 - GI/Abdominal Exam GI & Abdominal Exam: Soft, Diminished Bowel Sounds - Rectal Exam Rectal Exam: Deferred - Neurological Exam Neurological Exam: Alert, Awake, Oriented x3 Assessment and Plan (1) Abdominal pain Status: Acute (2) Acute renal insufficiency Status: Acute (3) Anemia Status: Acute (4) Anxiety Status: Acute (5) Arm sprain Status: Acute (6) Arthralgia of knee, left Status: Acute (7) Arthritis Status: Acute (8) Cellulitis Status: Acute (9) Cellulitis and abscess Status: Acute (10) Cellulitis of left knee Status: Acute (11) Chemotherapy adverse reaction Status: Acute (12) Chest pain Status: Acute (13) Chest pain Status: Acute (14) Closed head injury Status: Acute (15) Cocaine abuse Status: Acute (16) Colon cancer Status: Acute (17) Colon cancer metastasized to liver Status: Acute (18) Colonic mass Status: Acute (19) Constipation Status: Acute (20) Constipation Status: Acute (21) Contusion of chest Status: Acute (22) Contusion of knee, left Status: Acute (23) Contusion of knee, right Status: Acute (24) Contusion of lower back Status: Acute (25) Dizziness Status: Acute (26) Duodenitis Status: Acute (27) Dyspnea Status: Acute (28) External hemorrhoid, bleeding Status: Acute (29) Fall in bathtub Status: Acute (30) Fever Status: Acute (31) Gastrointestinal hemorrhage Status: Acute (32) Head injury Status: Acute (33) Head trauma Status: Acute (34) History of rectal bleeding Status: Acute (35) Infected abrasion Status: Acute (36) Infection due to portacath Status: Acute (37) Joint pain Status: Acute (38) Knee contusion Status: Acute (39) Knee injury Status: Acute (40) Knee pain Status: Acute (41) Knee pain, bilateral Status: Acute (42) Knee sprain, bilateral Status: Acute (43) Left sided abdominal pain Status: Acute (44) Leukocytosis Status: Acute (45) Liver lesion Status: Acute (46) Lung mass Status: Acute (47) Muscle pain Status: Acute (48) Nausea Status: Acute (49) Nodule of right lung Status: Acute (50) Osteoarthritis Status: Acute (51) Pancytopenia Status: Acute (52) Pancytopenia due to antineoplastic chemotherapy Status: Acute (53) Rectal bleeding Status: Acute (54) Shoulder contusion Status: Acute (55) Shoulder pain Status: Acute (56) Shoulder sprain Status: Acute (57) Status post chemotherapy Status: Acute (58) Total knee replacement status Status: Acute (59) Uncontrolled hypertension Status: Acute (60) Vertigo Status: Acute (61) Anxiety Status: Chronic (62) Iron deficiency anemia Status: Chronic - Assessment and Plan (Free Text) Plan: meds reviewed leighann same awaiting lung biopsy follow up with Dr jiménez cardio Dr Mikael Heath follow up leighann current meds as ordered
[2017-08-04] MEDS: oxyCODONE 5 mg Immediate Release Tab PO PRN ×2 (03:40→13:02)
[2017-08-04] MEDS: Enoxaparin 40 mg Syringe SC SCH (10:11)
[2017-08-04] MEDS: Pantoprazole 40 mg EC Tab PO SCH (10:12)
[2017-08-04] MEDS: POLYETHYLENE GLYCOL 3350 17 GM/Dose PACKET PO SCH (10:13)
--- NOTE | 2017-08-04 16:13 | CP.PCM.PN ---
Subjective - Date & Time of Evaluation Date of Evaluation: 08/04/17 Time of Evaluation: 10:40 - Subjective Subjective: clinically same no acute distress consultants following Objective - Vital Signs/Intake and Output Vital Signs (last 24 hours): Temp Pulse Resp BP Pulse Ox 97.4 F L 88 18 100/67 98 08/04/17 07:53 08/04/17 11:57 08/04/17 07:53 08/04/17 07:53 08/04/17 12:36 Intake and Output: 08/04/17 08/04/17 06:59 18:59 Intake Total 30 400 Balance 30 400 - Medications Medications: Current Medications Amlodipine Besylate (Norvasc) 5 mg PO STAT [facility] Last Admin: 08/01/17 09:52 Dose: 5 mg Aspirin (Aspirin) 325 mg PO DAILY [facility] Last Admin: 08/04/17 10:12 Dose: 325 mg Clonazepam (Klonopin) 2 mg PO TID [facility] Last Admin: 08/04/17 13:02 Dose: 2 mg Duloxetine HCl (Cymbalta) 60 mg PO DAILY [facility] Last Admin: 08/04/17 10:13 Dose: 60 mg Enoxaparin Sodium (Lovenox) 40 mg SC DAILY [facility] Last Admin: 08/04/17 10:11 Dose: 40 mg Escitalopram Oxalate (Lexapro) 20 mg PO DAILY [facility] Last Admin: 08/04/17 10:13 Dose: 20 mg Ibuprofen (Motrin Tab) 800 mg PO Q6 PRN PRN Reason: Pain, moderate (4-7) Oxycodone HCl (Oxycodone Immediate Release Tab) 15 mg PO Q3H PRN PRN Reason: Pain, moderate (4-7) Last Admin: 08/04/17 13:02 Dose: 15 mg Pantoprazole Sodium (Protonix Ec Tab) 40 mg PO DAILY [facility] Last Admin: 08/04/17 10:12 Dose: 40 mg Polyethylene Glycol (Miralax) 17 gm PO DAILY [facility] Last Admin: 08/04/17 10:13 Dose: Not Given Risperidone (Risperdal Tab) 2 mg PO BID [facility] Last Admin: 08/04/17 10:12 Dose: 2 mg Trazodone HCl (Desyrel) 50 mg PO HS [facility] Last Admin: 08/03/17 21:50 Dose: 50 mg Zolpidem Tartrate (Ambien) 10 mg PO HS [facility] Last Admin: 08/03/17 21:50 Dose: 10 mg - Labs Labs: 07/31/17 14:10 07/31/17 14:10 - Constitutional Appears: Well - Head Exam Head Exam: ATRAUMATIC, NORMAL INSPECTION, NORMOCEPHALIC - Eye Exam Eye Exam: EOMI, Normal appearance, PERRL Pupil Exam: NORMAL ACCOMODATION, PERRL - ENT Exam ENT Exam: Mucous Membranes Moist, Normal Exam - Neck Exam Neck Exam: Full ROM, Normal Inspection. absent: Lymphadenopathy - Respiratory Exam Respiratory Exam: Decreased Breath Sounds - Cardiovascular Exam Cardiovascular Exam: REGULAR RHYTHM, +S1, +S2 - GI/Abdominal Exam GI & Abdominal Exam: Soft, Diminished Bowel Sounds - Rectal Exam Rectal Exam: Deferred Assessment and Plan (1) Abdominal pain Status: Acute (2) Acute renal insufficiency Status: Acute (3) Anemia Status: Acute (4) Anxiety Status: Acute (5) Arm sprain Status: Acute (6) Arthralgia of knee, left Status: Acute (7) Arthritis Status: Acute (8) Cellulitis Status: Acute (9) Cellulitis and abscess Status: Acute (10) Cellulitis of left knee Status: Acute (11) Chemotherapy adverse reaction Status: Acute (12) Chest pain Status: Acute (13) Chest pain Status: Acute (14) Closed head injury Status: Acute (15) Cocaine abuse Status: Acute (16) Colon cancer Status: Acute (17) Colon cancer metastasized to liver Status: Acute (18) Colonic mass Status: Acute (19) Constipation Status: Acute (20) Constipation Status: Acute (21) Contusion of chest Status: Acute (22) Contusion of knee, left Status: Acute (23) Contusion of knee, right Status: Acute (24) Contusion of lower back Status: Acute (25) Dizziness Status: Acute (26) Duodenitis Status: Acute (27) Dyspnea Status: Acute (28) External hemorrhoid, bleeding Status: Acute (29) Fall in bathtub Status: Acute (30) Fever Status: Acute (31) Gastrointestinal hemorrhage Status: Acute (32) Head injury Status: Acute (33) Head trauma Status: Acute (34) History of rectal bleeding Status: Acute (35) Infected abrasion Status: Acute (36) Infection due to portacath Status: Acute (37) Joint pain Status: Acute (38) Knee contusion Status: Acute (39) Knee injury Status: Acute (40) Knee pain Status: Acute (41) Knee pain, bilateral Status: Acute (42) Knee sprain, bilateral Status: Acute (43) Left sided abdominal pain Status: Acute (44) Leukocytosis Status: Acute (45) Liver lesion Status: Acute (46) Lung mass Status: Acute (47) Muscle pain Status: Acute (48) Nausea Status: Acute (49) Nodule of right lung Status: Acute (50) Osteoarthritis Status: Acute (51) Pancytopenia Status: Acute (52) Pancytopenia due to antineoplastic chemotherapy Status: Acute (53) Rectal bleeding Status: Acute (54) Shoulder contusion Status: Acute (55) Shoulder pain Status: Acute (56) Shoulder sprain Status: Acute (57) Status post chemotherapy Status: Acute (58) Total knee replacement status Status: Acute (59) Uncontrolled hypertension Status: Acute (60) Vertigo Status: Acute (61) Anxiety Status: Chronic (62) Iron deficiency anemia Status: Chronic - Assessment and Plan (Free Text) Plan: meds reviewed leighann meds as ordered follow up with pulm recs Dr Chappell mx as ordered f/u cardio and heme onc
[2017-08-05] MEDS: oxyCODONE 5 mg Immediate Release Tab PO PRN (05:42)
[2017-08-05] MEDS: Pantoprazole 40 mg EC Tab PO SCH (10:02)
[2017-08-05] MEDS: POLYETHYLENE GLYCOL 3350 17 GM/Dose PACKET PO SCH (10:03)
[2017-08-05] MEDS: Enoxaparin 40 mg Syringe SC SCH (10:05)
--- NOTE | 2017-08-05 16:43 | CP.PCM.PN ---
<Thalia Velasquez - Last Filed: 08/05/17 16:32> Subjective - Date & Time of Evaluation Date of Evaluation: 08/05/17 Time of Evaluation: 16:32 - Subjective Subjective: PGY2 progress note for Dr. Harris 46 year old female with past medical history of depression, drug abuse and stage IV colon cancer being treated with chemotherapy presented to hospital for chest pain. Patient was noted to be postive for cocaine on presentation. Patient had serial trops and ekg which were negative. She underwent Ct of chest on admission with concern for PE. CT was negative for PE but there were nodules seen in the upper lungs with concern for mets. Pulm was consulted and recommended biopsy. Today, patient seen and examined at bedside. No acute events overnight. Patient resting comfortably. Currently denies having any CP , SOB, abd pain, N/V/D/c, F/C, coughing. Patient was diagnosed with colon cancer in 2014. She states that she had surgical resection and then had chemotherpay treatments. Her last chemo treatment was in June. She follows Dr. Heath for treatment. Past medical history: depression, anemia, stage IV colon cancer Past surgical history: Knee surgery, portacatheter placement and removal Family history: Denies hematologic and oncologic problems Social history: Denies tobacco, alcohol, and illicit drug use. Allergies: NKA Objective - Vital Signs/Intake and Output Vital Signs (last 24 hours): Temp Pulse Resp BP Pulse Ox 98.2 F 80 20 110/75 98 08/05/17 15:59 08/05/17 15:59 08/05/17 15:59 08/05/17 15:59 08/05/17 15:59 Intake and Output: 08/05/17 08/05/17 06:59 18:59 Intake Total 510 500 Balance 510 500 - Medications Medications: Current Medications Amlodipine Besylate (Norvasc) 5 mg PO STAT [facility] Last Admin: 08/01/17 09:52 Dose: 5 mg Aspirin (Aspirin) 325 mg PO DAILY [facility] Last Admin: 08/05/17 13:56 Dose: Not Given Clonazepam (Klonopin) 2 mg PO TID [facility] Last Admin: 08/05/17 13:55 Dose: 2 mg Duloxetine HCl (Cymbalta) 60 mg PO DAILY [facility] Last Admin: 08/05/17 10:03 Dose: 60 mg Enoxaparin Sodium (Lovenox) 40 mg SC DAILY [facility] Last Admin: 08/05/17 10:05 Dose: 40 mg Escitalopram Oxalate (Lexapro) 20 mg PO DAILY [facility] Last Admin: 08/05/17 10:03 Dose: 20 mg Ibuprofen (Motrin Tab) 800 mg PO Q6 PRN PRN Reason: Pain, MILD (1-3) Oxycodone HCl (Oxycodone Immediate Release Tab) 15 mg PO Q3H PRN PRN Reason: Pain, moderate (4-7) Last Admin: 08/05/17 05:42 Dose: 15 mg Pantoprazole Sodium (Protonix Ec Tab) 40 mg PO DAILY [facility] Last Admin: 08/05/17 10:02 Dose: 40 mg Polyethylene Glycol (Miralax) 17 gm PO DAILY [facility] Last Admin: 08/05/17 10:03 Dose: Not Given Risperidone (Risperdal Tab) 2 mg PO BID [facility] Last Admin: 08/05/17 11:14 Dose: 2 mg Trazodone HCl (Desyrel) 50 mg PO HS [facility] Last Admin: 08/04/17 21:39 Dose: 50 mg Zolpidem Tartrate (Ambien) 10 mg PO [facility] Last Admin: 08/04/17 21:39 Dose: 10 mg - Labs Labs: 07/31/17 14:10 07/31/17 14:10 - Constitutional Appears: Non-toxic, No Acute Distress - Head Exam Head Exam: ATRAUMATIC, NORMOCEPHALIC - ENT Exam ENT Exam: Mucous Membranes Moist - Respiratory Exam Respiratory Exam: Clear to Ausculation Bilateral. absent: Rales, Rhonchi, Wheezes - Cardiovascular Exam Cardiovascular Exam: REGULAR RHYTHM, +S1, +S2. absent: Gallop, Rubs, Murmur - GI/Abdominal Exam GI & Abdominal Exam: Soft, Normal Bowel Sounds. absent: Distended, Firm, Guarding, Rigid, Tenderness, Organomegaly - Extremities Exam Extremities Exam: absent: Pedal Edema, Tenderness - Neurological Exam Neurological Exam: Alert, Awake, Oriented x3 - Psychiatric Exam Psychiatric exam: Normal Affect, Normal Mood - Skin Skin Exam: Dry, Intact, Normal Color, Warm Assessment and Plan - Assessment and Plan (Free Text) Assessment: 46 year old female with past medical history of depression, pancytopenia and stage IV colon cancer is admitted for chest pain r/o acs. Chest pain - Patient had troponins x 3 and EKGs which were negative since admission - CT of chest PE protocol done on admission was negative for PE. There were 11.6 cm elliptical shaped ndule in the right posteriolateral upper lung field bordering the pleural surface. - Pt on aspirin - Cardiology was consulted. Due to recent normal stress test, stated that chest pain likely not cardiac related. Also stated that pt is acceptable risk to proceed with lung biopsy and may hold aspirin prior to biopsy is concern for bleeding - pain management with oxycodone 15 mg po q3 prn and ibuprofen 800 mg po q6 prn Lung Nodule - Pulm, Dr. Chappell was consulted. Recommends Ct guided biopsy. - Pt will need to be off Aspirin for 5 days prior to biopsy as pt is pancytopenic. Held Aspirin on 08/05/17 - Cardiology cleared for biopsy Pancytopenia - Likely 2/2 chemo - Heme/onc, Dr. Heath is consulted. - With thrombocytopenia, no overt bleeding noted. Benefits of placing pt on dvt prophylaxis with lovenox outweighs risks of bleeding due to pts history of colon cancer. Depression - Continue klonopin, cymbalta, lexapro, desyrel, risperdal Colon cancer stage IV - Pt will continue outpt chemo per Dr. Heath Prophylaxis - Protonix - SCD - Lovenox All orders and management per Dr. Harris <Rosaura Harris S - Last Filed: 08/08/17 15:03> Objective - Vital Signs/Intake and Output Vital Signs (last 24 hours): Temp Pulse Resp BP Pulse Ox 97.3 F L 97 H 20 122/77 97 08/07/17 15:01 08/07/17 15:01 08/07/17 15:01 08/07/17 15:01 08/07/17 15:01 - Labs Labs: 08/07/17 07:14 08/07/17 07:14 PT 12.8 SECONDS (9.7-12.2) H 08/06/17 06:03 INR 1.2 08/06/17 06:03 APTT 33 SECONDS (21-34) 08/06/17 06:03 Assessment and Plan (1) Abdominal pain Status: Acute (2) Acute renal insufficiency Status: Acute (3) Anemia Status: Acute (4) Anxiety Status: Acute (5) Arm sprain Status: Acute (6) Arthralgia of knee, left Status: Acute (7) Arthritis Status: Acute (8) Cellulitis Status: Acute (9) Cellulitis and abscess Status: Acute (10) Cellulitis of left knee Status: Acute (11) Chemotherapy adverse reaction Status: Acute (12) Chest pain Status: Acute (13) Chest pain Status: Acute (14) Closed head injury Status: Acute (15) Cocaine abuse Status: Acute (16) Colon cancer Status: Acute (17) Colon cancer metastasized to liver Status: Acute (18) Colonic mass Status: Acute (19) Constipation Status: Acute (20) Constipation Status: Acute (21) Contusion of chest Status: Acute (22) Contusion of knee, left Status: Acute (23) Contusion of knee, right Status: Acute (24) Contusion of lower back Status: Acute (25) Dizziness Status: Acute (26) Duodenitis Status: Acute (27) Dyspnea Status: Acute (28) External hemorrhoid, bleeding Status: Acute (29) Fall in bathtub Status: Acute (30) Fever Status: Acute (31) Gastrointestinal hemorrhage Status: Acute (32) Head injury Status: Acute (33) Head trauma Status: Acute (34) History of rectal bleeding Status: Acute (35) Infected abrasion Status: Acute (36) Infection due to portacath Status: Acute (37) Joint pain Status: Acute (38) Knee contusion Status: Acute (39) Knee injury Status: Acute (40) Knee pain Status: Acute (41) Knee pain, bilateral Status: Acute (42) Knee sprain, bilateral Status: Acute (43) Left sided abdominal pain Status: Acute (44) Leukocytosis Status: Acute (45) Liver lesion Status: Acute (46) Lung mass Status: Acute (47) Muscle pain Status: Acute (48) Nausea Status: Acute (49) Nodule of right lung Status: Acute (50) Osteoarthritis Status: Acute (51) Pancytopenia Status: Acute (52) Pancytopenia due to antineoplastic chemotherapy Status: Acute (53) Rectal bleeding Status: Acute (54) Shoulder contusion Status: Acute (55) Shoulder pain Status: Acute (56) Shoulder sprain Status: Acute (57) Status post chemotherapy Status: Acute (58) Total knee replacement status Status: Acute (59) Uncontrolled hypertension Status: Acute (60) Vertigo Status: Acute (61) Anxiety Status: Chronic (62) Iron deficiency anemia Status: Chronic Attending/Attestation - Attestation I have personally seen and examined this patient.: Yes I have fully participated in the care of the patient.: Yes I have reviewed all pertinent clinical information, including history, physical exam and plan: Yes Notes (Text): case seen and d.w staff and resident, concurred with finding and management..
--- NOTE | 2017-08-05 19:07 | CP.PCM.PN ---
Subjective - Date & Time of Evaluation Date of Evaluation: 08/05/17 Time of Evaluation: 10:20 - Subjective Subjective: patient seen and examined at bedside comfortably resting denies CP, SOB, abd pain, N/V/D/c, F/C, coughing Objective - Vital Signs/Intake and Output Vital Signs (last 24 hours): Temp Pulse Resp BP Pulse Ox 98.2 F 80 20 110/75 98 08/05/17 15:59 08/05/17 15:59 08/05/17 15:59 08/05/17 15:59 08/05/17 15:59 Intake and Output: 08/05/17 08/06/17 18:59 06:59 Intake Total 500 Balance 500 - Medications Medications: Current Medications Amlodipine Besylate (Norvasc) 5 mg PO STAT [facility] Last Admin: 08/01/17 09:52 Dose: 5 mg Aspirin (Aspirin) 325 mg PO DAILY [facility] Last Admin: 08/05/17 13:56 Dose: Not Given Clonazepam (Klonopin) 2 mg PO TID [facility] Last Admin: 08/05/17 18:09 Dose: 2 mg Duloxetine HCl (Cymbalta) 60 mg PO DAILY [facility] Last Admin: 08/05/17 10:03 Dose: 60 mg Enoxaparin Sodium (Lovenox) 40 mg SC DAILY [facility] Last Admin: 08/05/17 10:05 Dose: 40 mg Escitalopram Oxalate (Lexapro) 20 mg PO DAILY [facility] Last Admin: 08/05/17 10:03 Dose: 20 mg Ibuprofen (Motrin Tab) 800 mg PO Q6 PRN PRN Reason: Pain, MILD (1-3) Oxycodone HCl (Oxycodone Immediate Release Tab) 15 mg PO Q3H PRN PRN Reason: Pain, moderate (4-7) Last Admin: 08/05/17 05:42 Dose: 15 mg Pantoprazole Sodium (Protonix Ec Tab) 40 mg PO DAILY [facility] Last Admin: 08/05/17 10:02 Dose: 40 mg Polyethylene Glycol (Miralax) 17 gm PO DAILY [facility] Last Admin: 08/05/17 10:03 Dose: Not Given Risperidone (Risperdal Tab) 2 mg PO BID [facility] Last Admin: 08/05/17 18:09 Dose: 2 mg Trazodone HCl (Desyrel) 50 mg PO HS [facility] Last Admin: 08/04/17 21:39 Dose: 50 mg Zolpidem Tartrate (Ambien) 10 mg PO [facility] Last Admin: 08/04/17 21:39 Dose: 10 mg - Labs Labs: 07/31/17 14:10 07/31/17 14:10 - Constitutional Appears: Well - Head Exam Head Exam: ATRAUMATIC, NORMAL INSPECTION, NORMOCEPHALIC - Eye Exam Eye Exam: EOMI, Normal appearance, PERRL Pupil Exam: NORMAL ACCOMODATION, PERRL - ENT Exam ENT Exam: Mucous Membranes Moist, Normal Exam - Neck Exam Neck Exam: Full ROM, Normal Inspection. absent: Lymphadenopathy - Respiratory Exam Respiratory Exam: Decreased Breath Sounds - Cardiovascular Exam Cardiovascular Exam: REGULAR RHYTHM, +S1, +S2 - GI/Abdominal Exam GI & Abdominal Exam: Soft, Diminished Bowel Sounds - Rectal Exam Rectal Exam: Deferred - Neurological Exam Neurological Exam: Alert, Awake Assessment and Plan (1) Abdominal pain Status: Acute (2) Acute renal insufficiency Status: Acute (3) Anemia Status: Acute (4) Anxiety Status: Acute (5) Arm sprain Status: Acute (6) Arthralgia of knee, left Status: Acute (7) Arthritis Status: Acute (8) Cellulitis Status: Acute (9) Cellulitis and abscess Status: Acute (10) Cellulitis of left knee Status: Acute (11) Chemotherapy adverse reaction Status: Acute (12) Chest pain Status: Acute (13) Chest pain Status: Acute (14) Closed head injury Status: Acute (15) Cocaine abuse Status: Acute (16) Colon cancer Status: Acute (17) Colon cancer metastasized to liver Status: Acute (18) Colonic mass Status: Acute (19) Constipation Status: Acute (20) Constipation Status: Acute (21) Contusion of chest Status: Acute (22) Contusion of knee, left Status: Acute (23) Contusion of knee, right Status: Acute (24) Contusion of lower back Status: Acute (25) Dizziness Status: Acute (26) Duodenitis Status: Acute (27) Dyspnea Status: Acute (28) External hemorrhoid, bleeding Status: Acute (29) Fall in bathtub Status: Acute (30) Fever Status: Acute (31) Gastrointestinal hemorrhage Status: Acute (32) Head injury Status: Acute (33) Head trauma Status: Acute (34) History of rectal bleeding Status: Acute (35) Infected abrasion Status: Acute (36) Infection due to portacath Status: Acute (37) Joint pain Status: Acute (38) Knee contusion Status: Acute (39) Knee injury Status: Acute (40) Knee pain Status: Acute (41) Knee pain, bilateral Status: Acute (42) Knee sprain, bilateral Status: Acute (43) Left sided abdominal pain Status: Acute (44) Leukocytosis Status: Acute (45) Liver lesion Status: Acute (46) Lung mass Status: Acute (47) Muscle pain Status: Acute (48) Nausea Status: Acute (49) Nodule of right lung Status: Acute (50) Osteoarthritis Status: Acute (51) Pancytopenia Status: Acute (52) Pancytopenia due to antineoplastic chemotherapy Status: Acute (53) Rectal bleeding Status: Acute (54) Shoulder contusion Status: Acute (55) Shoulder pain Status: Acute (56) Shoulder sprain Status: Acute (57) Status post chemotherapy Status: Acute (58) Total knee replacement status Status: Acute (59) Uncontrolled hypertension Status: Acute (60) Vertigo Status: Acute (61) Anxiety Status: Chronic (62) Iron deficiency anemia Status: Chronic - Assessment and Plan (Free Text) Plan: 46 year old female with past medical history of depression, pancytopenia and stage IV colon cancer is admitted for chest pain r/o acs. Chest pain - Patient had troponins x 3 and EKGs which were negative since admission - CT of chest PE protocol done on admission was negative for PE. There were 11.6 cm elliptical shaped ndule in the right posteriolateral upper lung field bordering the pleural surface. - Pt on aspirin - Cardiology was consulted. Due to recent normal stress test, stated that chest pain likely not cardiac related. Also stated that pt is acceptable risk to proceed with lung biopsy and may hold aspirin prior to biopsy is concern for bleeding - pain management with oxycodone 15 mg po q3 prn and ibuprofen 800 mg po q6 prn Lung Nodule - Pulm, Dr. Chappell was consulted. Recommends Ct guided biopsy. - Pt will need to be off Aspirin for 5 days prior to biopsy as pt is pancytopenic. Held Aspirin on 08/05/17 - Cardiology cleared for biopsy Pancytopenia - Likely 2/2 chemo - Heme/onc, Dr. Heath is consulted. - With thrombocytopenia, no overt bleeding noted. Benefits of placing pt on dvt prophylaxis with lovenox outweighs risks of bleeding due to pts history of colon cancer. Depression - Continue klonopin, cymbalta, lexapro, desyrel, risperdal Colon cancer stage IV - Pt will continue outpt chemo per Dr. Heath Prophylaxis - Protonix - SCD - Lovenox case d/w staff meds as ordered f/u with cleaning validation consultant recommendations
--- NOTE | 2017-08-05 21:24 | CP.PCM.PN ---
Subjective - Date & Time of Evaluation Date of Evaluation: 08/05/17 Time of Evaluation: 18:15 - Subjective Subjective: No complaints. Objective - Vital Signs/Intake and Output Vital Signs (last 24 hours): Temp Pulse Resp BP Pulse Ox 98.2 F 80 20 110/75 98 08/05/17 15:59 08/05/17 15:59 08/05/17 15:59 08/05/17 15:59 08/05/17 15:59 Intake and Output: 08/05/17 08/06/17 18:59 06:59 Intake Total 500 Balance 500 - Medications Medications: Current Medications Amlodipine Besylate (Norvasc) 5 mg PO STAT [facility] Last Admin: 08/01/17 09:52 Dose: 5 mg Aspirin (Aspirin) 325 mg PO DAILY [facility] Last Admin: 08/05/17 13:56 Dose: Not Given Clonazepam (Klonopin) 2 mg PO TID [facility] Last Admin: 08/05/17 18:09 Dose: 2 mg Duloxetine HCl (Cymbalta) 60 mg PO DAILY [facility] Last Admin: 08/05/17 10:03 Dose: 60 mg Enoxaparin Sodium (Lovenox) 40 mg SC DAILY [facility] Last Admin: 08/05/17 10:05 Dose: 40 mg Escitalopram Oxalate (Lexapro) 20 mg PO DAILY [facility] Last Admin: 08/05/17 10:03 Dose: 20 mg Ibuprofen (Motrin Tab) 800 mg PO Q6 PRN PRN Reason: Pain, MILD (1-3) Oxycodone HCl (Oxycodone Immediate Release Tab) 15 mg PO Q3H PRN PRN Reason: Pain, moderate (4-7) Last Admin: 08/05/17 05:42 Dose: 15 mg Pantoprazole Sodium (Protonix Ec Tab) 40 mg PO DAILY [facility] Last Admin: 08/05/17 10:02 Dose: 40 mg Polyethylene Glycol (Miralax) 17 gm PO DAILY [facility] Last Admin: 08/05/17 10:03 Dose: Not Given Risperidone (Risperdal Tab) 2 mg PO BID [facility] Last Admin: 08/05/17 18:09 Dose: 2 mg Trazodone HCl (Desyrel) 50 mg PO HS [facility] Last Admin: 08/04/17 21:39 Dose: 50 mg Zolpidem Tartrate (Ambien) 10 mg PO HS [facility] Last Admin: 08/04/17 21:39 Dose: 10 mg - Labs Labs: 07/31/17 14:10 07/31/17 14:10 - Head Exam Head Exam: ATRAUMATIC - Eye Exam Eye Exam: Normal appearance - ENT Exam ENT Exam: Mucous Membranes Dry - Respiratory Exam Respiratory Exam: NORMAL BREATHING PATTERN - Cardiovascular Exam Cardiovascular Exam: +S1, +S2 - GI/Abdominal Exam GI & Abdominal Exam: Normal Bowel Sounds - Extremities Exam Extremities Exam: Pedal Edema Assessment and Plan (1) Lung mass Assessment & Plan: for biopsy aspirin held ? metastatic colon cancer Status: Acute (2) Pancytopenia Assessment & Plan: ? liver disease ? psych med related Status: Acute (3) Colon cancer Assessment & Plan: stage IV with liver metastasis outpatient treatment Status: Acute
[2017-08-06] MEDS: oxyCODONE 5 mg Immediate Release Tab PO PRN ×2 (03:17→15:57)
[2017-08-06 06:11] LABS: BASO % 0.4 % (0.0-2.0); EOS % 0.8 % (0.0-4.0); HEMOGLOBIN 11.6 g/dL (11.0-16.0); LYMPH # 1.3 K/uL (1.0-4.3); LYMPH % 26.6 % (20.0-40.0); MEAN CELL VOLUME 75.4 fL (81.0-99.0); MEAN CORPUSCULAR HEMOGLOBIN 24.5 pg (27.0-31.0); MEAN CORPUSCULAR HGB CONC 32.6 g/dL (33.0-37.0); MONO # 0.3 K/uL (0.0-0.8); MONO % 6.3 % (0.0-10.0); NEUT # 3.2 K/uL (1.8-7.0); NEUT % 65.9 % (50.0-75.0); RBC 4.74 Mil/uL (3.80-5.20); RED CELL DISTRIBUTION WIDTH 17.4 % (11.5-14.5); WHITE BLOOD COUNT 4.8 K/uL (4.8-10.8)
[2017-08-06 06:30] LABS: INR 1.2; PROTHROMBIN TIME 12.8 SECONDS (9.7-12.2)
--- NOTE | 2017-08-06 07:19 | CP.PCM.PN ---
Subjective - Date & Time of Evaluation Date of Evaluation: 08/06/17 Time of Evaluation: 11:30 - Subjective Subjective: clinically same denies chest pain or n/v consultants following Objective - Vital Signs/Intake and Output Vital Signs (last 24 hours): Temp Pulse Resp BP Pulse Ox 98.2 F 79 20 105/69 96 08/06/17 01:51 08/06/17 01:51 08/06/17 01:51 08/06/17 01:51 08/06/17 01:51 Intake and Output: 08/06/17 08/06/17 06:59 18:59 Intake Total 10 Balance 10 - Medications Medications: Current Medications Amlodipine Besylate (Norvasc) 5 mg PO STAT [facility] Last Admin: 08/01/17 09:52 Dose: 5 mg Aspirin (Aspirin) 325 mg PO DAILY [facility] Last Admin: 08/05/17 13:56 Dose: Not Given Clonazepam (Klonopin) 2 mg PO TID [facility] Last Admin: 08/05/17 18:09 Dose: 2 mg Duloxetine HCl (Cymbalta) 60 mg PO DAILY [facility] Last Admin: 08/05/17 10:03 Dose: 60 mg Enoxaparin Sodium (Lovenox) 40 mg SC DAILY [facility] Last Admin: 08/05/17 10:05 Dose: 40 mg Escitalopram Oxalate (Lexapro) 20 mg PO DAILY [facility] Last Admin: 08/05/17 10:03 Dose: 20 mg Ibuprofen (Motrin Tab) 800 mg PO Q6 PRN PRN Reason: Pain, MILD (1-3) Oxycodone HCl (Oxycodone Immediate Release Tab) 15 mg PO Q3H PRN PRN Reason: Pain, moderate (4-7) Last Admin: 08/06/17 03:17 Dose: 15 mg Pantoprazole Sodium (Protonix Ec Tab) 40 mg PO DAILY [facility] Last Admin: 08/05/17 10:02 Dose: 40 mg Polyethylene Glycol (Miralax) 17 gm PO DAILY [facility] Last Admin: 08/05/17 10:03 Dose: Not Given Risperidone (Risperdal Tab) 2 mg PO BID [facility] Last Admin: 08/05/17 18:09 Dose: 2 mg Trazodone HCl (Desyrel) 50 mg PO HS [facility] Last Admin: 08/05/17 21:58 Dose: 50 mg Zolpidem Tartrate (Ambien) 10 mg PO HS [facility] Last Admin: 08/05/17 23:06 Dose: Not Given - Labs Labs: 08/06/17 06:03 07/31/17 14:10 PT 12.8 SECONDS (9.7-12.2) H 08/06/17 06:03 INR 1.2 08/06/17 06:03 APTT 33 SECONDS (21-34) 08/06/17 06:03 - Constitutional Appears: No Acute Distress - Head Exam Head Exam: ATRAUMATIC, NORMAL INSPECTION, NORMOCEPHALIC - Eye Exam Eye Exam: EOMI, Normal appearance, PERRL Pupil Exam: NORMAL ACCOMODATION, PERRL - ENT Exam ENT Exam: Mucous Membranes Moist, Normal Exam - Neck Exam Neck Exam: Full ROM, Normal Inspection. absent: Lymphadenopathy - Respiratory Exam Respiratory Exam: Decreased Breath Sounds - Cardiovascular Exam Cardiovascular Exam: REGULAR RHYTHM, +S1, +S2 - GI/Abdominal Exam GI & Abdominal Exam: Soft, Diminished Bowel Sounds - Rectal Exam Rectal Exam: Deferred - Neurological Exam Neurological Exam: Alert, Awake Assessment and Plan (1) Abdominal pain Status: Acute (2) Acute renal insufficiency Status: Acute (3) Anemia Status: Acute (4) Anxiety Status: Acute (5) Anxiety Status: Chronic (6) Arm sprain Status: Acute (7) Arthralgia of knee, left Status: Acute (8) Arthritis Status: Acute (9) Cellulitis Status: Acute (10) Cellulitis and abscess Status: Acute (11) Cellulitis of left knee Status: Acute (12) Chemotherapy adverse reaction Status: Acute (13) Chest pain Status: Acute (14) Chest pain Status: Acute (15) Closed head injury Status: Acute (16) Cocaine abuse Status: Acute (17) Colon cancer Status: Acute (18) Colon cancer metastasized to liver Status: Acute (19) Colonic mass Status: Acute (20) Constipation Status: Acute (21) Constipation Status: Acute (22) Contusion of chest Status: Acute (23) Contusion of knee, left Status: Acute (24) Contusion of knee, right Status: Acute (25) Contusion of lower back Status: Acute (26) Dizziness Status: Acute (27) Duodenitis Status: Acute (28) Dyspnea Status: Acute (29) External hemorrhoid, bleeding Status: Acute (30) Fall in bathtub Status: Acute (31) Fever Status: Acute (32) Gastrointestinal hemorrhage Status: Acute (33) Head injury Status: Acute (34) Head trauma Status: Acute (35) History of rectal bleeding Status: Acute (36) Infected abrasion Status: Acute (37) Infection due to portacath Status: Acute (38) Iron deficiency anemia Status: Chronic (39) Joint pain Status: Acute (40) Knee contusion Status: Acute (41) Knee injury Status: Acute (42) Knee pain Status: Acute (43) Knee pain, bilateral Status: Acute (44) Knee sprain, bilateral Status: Acute (45) Left sided abdominal pain Status: Acute (46) Leukocytosis Status: Acute (47) Liver lesion Status: Acute (48) Lung mass Status: Acute (49) Muscle pain Status: Acute (50) Nausea Status: Acute (51) Nodule of right lung Status: Acute (52) Osteoarthritis Status: Acute (53) Pancytopenia Status: Acute (54) Pancytopenia due to antineoplastic chemotherapy Status: Acute (55) Rectal bleeding Status: Acute (56) Shoulder contusion Status: Acute (57) Shoulder pain Status: Acute (58) Shoulder sprain Status: Acute (59) Status post chemotherapy Status: Acute (60) Total knee replacement status Status: Acute (61) Uncontrolled hypertension Status: Acute (62) Vertigo Status: Acute - Assessment and Plan (Free Text) Plan: Awaiting for biopsy We will speak to oncology and pulmonary biopsy can be done as an outpatient Continue same As ordered dvt/gi ppx
[2017-08-06 07:38] LABS: ALBUMIN 3.4 g/dL (3.5-5.0); ALT/SGPT 22 U/L (9-52); AST/SGOT 37 U/L (14-36); BLOOD UREA NITROGEN 14 mg/dL (7-17); CALCIUM 8.7 mg/dl (8.6-10.4); GFR AFRICAN-AMERICAN > 60; GFR NON-AFRICAN AMERICAN > 60
--- NOTE | 2017-08-06 09:35 | CP.PCM.PN ---
Subjective - Date & Time of Evaluation Date of Evaluation: 08/06/17 Time of Evaluation: 14:42 - Subjective Subjective: Pulm Progress Note- Dr. Chappell's service Patient seen and examined in no apparent acute distress. Patient states that she is breathing better. She is aware of the biopsy that will need to be performed. Patient denies chest pain, shortness of breath or palpitations at this time. Objective - Vital Signs/Intake and Output Vital Signs (last 24 hours): Temp Pulse Resp BP Pulse Ox 97.6 F 78 18 107/72 97 08/06/17 07:05 08/06/17 07:05 08/06/17 07:05 08/06/17 07:05 08/06/17 07:05 Intake and Output: 08/06/17 08/06/17 06:59 18:59 Intake Total 10 Balance 10 - Medications Medications: Current Medications Amlodipine Besylate (Norvasc) 5 mg PO STAT [facility] Last Admin: 08/01/17 09:52 Dose: 5 mg Aspirin (Aspirin) 325 mg PO DAILY [facility] Last Admin: 08/05/17 13:56 Dose: Not Given Clonazepam (Klonopin) 2 mg PO TID [facility] Last Admin: 08/05/17 18:09 Dose: 2 mg Duloxetine HCl (Cymbalta) 60 mg PO DAILY [facility] Last Admin: 08/05/17 10:03 Dose: 60 mg Enoxaparin Sodium (Lovenox) 40 mg SC DAILY [facility] Last Admin: 08/05/17 10:05 Dose: 40 mg Escitalopram Oxalate (Lexapro) 20 mg PO DAILY [facility] Last Admin: 08/05/17 10:03 Dose: 20 mg Ibuprofen (Motrin Tab) 800 mg PO Q6 PRN PRN Reason: Pain, MILD (1-3) Oxycodone HCl (Oxycodone Immediate Release Tab) 15 mg PO Q3H PRN PRN Reason: Pain, moderate (4-7) Last Admin: 08/06/17 03:17 Dose: 15 mg Pantoprazole Sodium (Protonix Ec Tab) 40 mg PO DAILY [facility] Last Admin: 08/05/17 10:02 Dose: 40 mg Polyethylene Glycol (Miralax) 17 gm PO DAILY [facility] Last Admin: 08/05/17 10:03 Dose: Not Given Risperidone (Risperdal Tab) 2 mg PO BID [facility] Last Admin: 08/05/17 18:09 Dose: 2 mg Trazodone HCl (Desyrel) 50 mg PO HS [facility] Last Admin: 08/05/17 21:58 Dose: 50 mg Zolpidem Tartrate (Ambien) 10 mg PO HS [facility] Last Admin: 08/05/17 23:06 Dose: Not Given - Labs Labs: 08/06/17 06:03 08/06/17 06:03 PT 12.8 SECONDS (9.7-12.2) H 08/06/17 06:03 INR 1.2 08/06/17 06:03 APTT 33 SECONDS (21-34) 08/06/17 06:03 - Constitutional Appears: Non-toxic, No Acute Distress - Head Exam Head Exam: ATRAUMATIC, NORMAL INSPECTION - Eye Exam Eye Exam: EOMI, Normal appearance - ENT Exam ENT Exam: Mucous Membranes Moist - Neck Exam Neck Exam: Full ROM - Respiratory Exam Respiratory Exam: NORMAL BREATHING PATTERN - Cardiovascular Exam Cardiovascular Exam: +S1, +S2 - Extremities Exam Extremities Exam: Full ROM - Neurological Exam Neurological Exam: Alert, Awake, Oriented x3 - Psychiatric Exam Psychiatric exam: Normal Affect, Normal Mood - Skin Skin Exam: Normal Color Assessment and Plan (1) Nodule of right lung Assessment & Plan: 11.6 cm elliptical-shaped lung nodule suspicious for metastatic disease from colon. Recommendations for CT guided biopsy at this time. ASA held currently in anticipation of procedure; however it need not necessarily be held for a five day duration. Risks vs Benefits addressed. Will talk to primary team. Status: Acute (2) Colon cancer Assessment & Plan: Stage 4 with mets to the liver Suspicions for lung mets as well. CEA elevated 147 Status: Acute
[2017-08-06] MEDS: POLYETHYLENE GLYCOL 3350 17 GM/Dose PACKET PO SCH (10:19)
[2017-08-06] MEDS: Pantoprazole 40 mg EC Tab PO SCH (10:19)
[2017-08-06] MEDS: Enoxaparin 40 mg Syringe SC SCH (10:23)
--- NOTE | 2017-08-06 15:15 | CP.PCM.PN ---
<Saud Jones - Last Filed: 08/06/17 15:15> Subjective - Date & Time of Evaluation Date of Evaluation: 08/06/17 Time of Evaluation: 15:15 - Subjective Subjective: PROGRESS NOTE. Attending: Dr. Dionisio Harris Pt seen and examined at bedside. No acute distress. No events overnight. No fevers, chills, vomiting, diarrhea. Plan for biopsy. Objective - Vital Signs/Intake and Output Vital Signs (last 24 hours): Temp Pulse Resp BP Pulse Ox 97.6 F 80 18 108/73 97 08/06/17 07:05 08/06/17 14:15 08/06/17 07:05 08/06/17 14:15 08/06/17 07:05 Intake and Output: 08/06/17 08/06/17 06:59 18:59 Intake Total 10 Balance 10 - Medications Medications: Current Medications Amlodipine Besylate (Norvasc) 5 mg PO STAT [facility] Last Admin: 08/01/17 09:52 Dose: 5 mg Aspirin (Aspirin) 325 mg PO DAILY [facility] Last Admin: 08/05/17 13:56 Dose: Not Given Clonazepam (Klonopin) 2 mg PO TID [facility] Last Admin: 08/06/17 14:16 Dose: 2 mg Duloxetine HCl (Cymbalta) 60 mg PO DAILY [facility] Last Admin: 08/06/17 10:20 Dose: 60 mg Enoxaparin Sodium (Lovenox) 40 mg SC DAILY [facility] Last Admin: 08/06/17 10:23 Dose: 40 mg Escitalopram Oxalate (Lexapro) 20 mg PO DAILY [facility] Last Admin: 08/06/17 10:20 Dose: 20 mg Ibuprofen (Motrin Tab) 800 mg PO Q6 PRN PRN Reason: Pain, MILD (1-3) Oxycodone HCl (Oxycodone Immediate Release Tab) 15 mg PO Q3H PRN PRN Reason: Pain, moderate (4-7) Last Admin: 08/06/17 03:17 Dose: 15 mg Pantoprazole Sodium (Protonix Ec Tab) 40 mg PO DAILY [facility] Last Admin: 08/06/17 10:19 Dose: 40 mg Polyethylene Glycol (Miralax) 17 gm PO DAILY [facility] Last Admin: 08/06/17 10:19 Dose: Not Given Risperidone (Risperdal Tab) 2 mg PO BID [facility] Last Admin: 08/06/17 11:31 Dose: 2 mg Trazodone HCl (Desyrel) 50 mg PO [facility] Last Admin: 08/05/17 21:58 Dose: 50 mg Zolpidem Tartrate (Ambien) 10 mg PO [facility] Last Admin: 08/05/17 23:06 Dose: Not Given - Labs Labs: 08/06/17 06:03 08/06/17 06:03 PT 12.8 SECONDS (9.7-12.2) H 08/06/17 06:03 INR 1.2 08/06/17 06:03 APTT 33 SECONDS (21-34) 08/06/17 06:03 - Constitutional Appears: Non-toxic, No Acute Distress - Head Exam Head Exam: ATRAUMATIC, NORMAL INSPECTION, NORMOCEPHALIC - Eye Exam Eye Exam: EOMI - ENT Exam ENT Exam: Mucous Membranes Moist - Neck Exam Neck Exam: Full ROM, Normal Inspection - Respiratory Exam Respiratory Exam: NORMAL BREATHING PATTERN. absent: Respiratory Distress - Cardiovascular Exam Cardiovascular Exam: +S1, +S2 - GI/Abdominal Exam GI & Abdominal Exam: Soft, Normal Bowel Sounds. absent: Tenderness - Extremities Exam Extremities Exam: Full ROM, Normal Inspection - Back Exam Back Exam: NORMAL INSPECTION - Neurological Exam Neurological Exam: Alert, Awake, Oriented x3 - Psychiatric Exam Psychiatric exam: Flat Affect - Skin Skin Exam: Dry, Intact, Normal Color, Warm Assessment and Plan - Assessment and Plan (Free Text) Assessment: This is a 46 year old female with past medical hx of depression, pancytopenia, stage IV colon cancer, drug abuse, including cocaine, is admitted for chest pain r/o acs. Chest pain - Patient had troponins x 3 and EKGs which were negative since admission - CT of chest PE protocol done on admission was negative for PE. There was an 11.6 cm elliptical shaped nodule in the right posterolateral upper lung field bordering the pleural surface. - Pt on aspirin -asa being held currently - Cardiology was consulted. Due to recent normal stress test, stated that chest pain likely not cardiac related. Also stated that pt is acceptable risk to proceed with lung biopsy and may hold aspirin prior to biopsy is concern for bleeding - pain management with oxycodone 15 mg po q3 prn and ibuprofen 800 mg po q6 prn Lung Nodule - Pulm, Dr. Chappell was consulted. Recommends Ct guided biopsy. - Pt will need to be off Aspirin for 5 days prior to biopsy as pt is pancytopenic. Held Aspirin on 08/05/17 - Cardiology cleared for biopsy Pancytopenia - Likely 2/2 chemo - Heme/onc, Dr. Heath is consulted. - With thrombocytopenia, no overt bleeding noted. Benefits of placing pt on dvt prophylaxis with lovenox outweighs risks of bleeding due to pts history of colon cancer. Depression - Continue klonopin, cymbalta, lexapro, desyrel, risperdal Colon cancer stage IV - Pt will continue outpt chemo per Dr. Heath Hx of drug abuse -continue to monitor -continue to follow outpatient psych -encourage drug cessation Prophylaxis - Protonix - SCD - Lovenox All orders and management per Dr. Harris <Rosaura Harris S - Last Filed: 08/08/17 15:03> Objective - Vital Signs/Intake and Output Vital Signs (last 24 hours): Temp Pulse Resp BP Pulse Ox 97.3 F L 97 H 20 122/77 97 08/07/17 15:01 08/07/17 15:01 08/07/17 15:01 08/07/17 15:01 08/07/17 15:01 - Labs Labs: 08/07/17 07:14 08/07/17 07:14 PT 12.8 SECONDS (9.7-12.2) H 08/06/17 06:03 INR 1.2 08/06/17 06:03 APTT 33 SECONDS (21-34) 08/06/17 06:03 Assessment and Plan (1) Abdominal pain Status: Acute (2) Acute renal insufficiency Status: Acute (3) Anemia Status: Acute (4) Anxiety Status: Acute (5) Arm sprain Status: Acute (6) Arthralgia of knee, left Status: Acute (7) Arthritis Status: Acute (8) Cellulitis Status: Acute (9) Cellulitis and abscess Status: Acute (10) Cellulitis of left knee Status: Acute (11) Chemotherapy adverse reaction Status: Acute (12) Chest pain Status: Acute (13) Chest pain Status: Acute (14) Closed head injury Status: Acute (15) Cocaine abuse Status: Acute (16) Colon cancer Status: Acute (17) Colon cancer metastasized to liver Status: Acute (18) Colonic mass Status: Acute (19) Constipation Status: Acute (20) Constipation Status: Acute (21) Contusion of chest Status: Acute (22) Contusion of knee, left Status: Acute (23) Contusion of knee, right Status: Acute (24) Contusion of lower back Status: Acute (25) Dizziness Status: Acute (26) Duodenitis Status: Acute (27) Dyspnea Status: Acute (28) External hemorrhoid, bleeding Status: Acute (29) Fall in bathtub Status: Acute (30) Fever Status: Acute (31) Gastrointestinal hemorrhage Status: Acute (32) Head injury Status: Acute (33) Head trauma Status: Acute (34) History of rectal bleeding Status: Acute (35) Infected abrasion Status: Acute (36) Infection due to portacath Status: Acute (37) Joint pain Status: Acute (38) Knee contusion Status: Acute (39) Knee injury Status: Acute (40) Knee pain Status: Acute (41) Knee pain, bilateral Status: Acute (42) Knee sprain, bilateral Status: Acute (43) Left sided abdominal pain Status: Acute (44) Leukocytosis Status: Acute (45) Liver lesion Status: Acute (46) Lung mass Status: Acute (47) Muscle pain Status: Acute (48) Nausea Status: Acute (49) Nodule of right lung Status: Acute (50) Osteoarthritis Status: Acute (51) Pancytopenia Status: Acute (52) Pancytopenia due to antineoplastic chemotherapy Status: Acute (53) Rectal bleeding Status: Acute (54) Shoulder contusion Status: Acute (55) Shoulder pain Status: Acute (56) Shoulder sprain Status: Acute (57) Status post chemotherapy Status: Acute (58) Total knee replacement status Status: Acute (59) Uncontrolled hypertension Status: Acute (60) Vertigo Status: Acute (61) Anxiety Status: Chronic (62) Iron deficiency anemia Status: Chronic Attending/Attestation - Attestation I have personally seen and examined this patient.: Yes I have fully participated in the care of the patient.: Yes I have reviewed all pertinent clinical information, including history, physical exam and plan: Yes Notes (Text): case seen and d.w staff and resident, concurred with finding and management..
[2017-08-06 15:44] VITALS: RESP 20
--- NOTE | 2017-08-06 18:45 | CP.PCM.PN ---
Subjective - Date & Time of Evaluation Date of Evaluation: 08/06/17 Time of Evaluation: 19:23 - Subjective Subjective: Pulmonary, Covering Dr. Chappell The patient was Seen and examined by me at the bedside, Events reviewed Awake, comfortable, NAD Breathing unlabored, O2 sat 95% on RA Pt Alert, AAO x3. Denies any chest pain, Cough or Palpitations Less Dyspnea Afebrile, NSR on the monitor Objective - Vital Signs/Intake and Output Vital Signs (last 24 hours): Temp Pulse Resp BP Pulse Ox 97.6 F 83 20 109/76 95 08/06/17 15:01 08/06/17 15:01 08/06/17 15:01 08/06/17 15:01 08/06/17 15:01 Intake and Output: 08/06/17 08/06/17 06:59 18:59 Intake Total 10 Balance 10 - Medications Medications: Current Medications Amlodipine Besylate (Norvasc) 5 mg PO STAT [facility] Last Admin: 08/01/17 09:52 Dose: 5 mg Aspirin (Aspirin) 325 mg PO DAILY [facility] Last Admin: 08/05/17 13:56 Dose: Not Given Clonazepam (Klonopin) 2 mg PO TID [facility] Last Admin: 08/06/17 18:25 Dose: 2 mg Duloxetine HCl (Cymbalta) 60 mg PO DAILY [facility] Last Admin: 08/06/17 10:20 Dose: 60 mg Enoxaparin Sodium (Lovenox) 40 mg SC DAILY [facility] Last Admin: 08/06/17 10:23 Dose: 40 mg Escitalopram Oxalate (Lexapro) 20 mg PO DAILY [facility] Last Admin: 08/06/17 10:20 Dose: 20 mg Ibuprofen (Motrin Tab) 800 mg PO Q6 PRN PRN Reason: Pain, MILD (1-3) Oxycodone HCl (Oxycodone Immediate Release Tab) 15 mg PO Q3H PRN PRN Reason: Pain, moderate (4-7) Last Admin: 08/06/17 15:57 Dose: 15 mg Pantoprazole Sodium (Protonix Ec Tab) 40 mg PO DAILY [facility] Last Admin: 08/06/17 10:19 Dose: 40 mg Polyethylene Glycol (Miralax) 17 gm PO DAILY [facility] Last Admin: 08/06/17 10:19 Dose: Not Given Risperidone (Risperdal Tab) 2 mg PO BID [facility] Last Admin: 08/06/17 18:24 Dose: 2 mg Trazodone HCl (Desyrel) 50 mg PO [facility] Last Admin: 08/05/17 21:58 Dose: 50 mg Zolpidem Tartrate (Ambien) 10 mg PO [facility] Last Admin: 08/05/17 23:06 Dose: Not Given - Labs Labs: 08/06/17 06:03 08/06/17 06:03 PT 12.8 SECONDS (9.7-12.2) H 08/06/17 06:03 INR 1.2 08/06/17 06:03 APTT 33 SECONDS (21-34) 08/06/17 06:03 - Constitutional Appears: Well, Non-toxic, No Acute Distress - Head Exam Head Exam: ATRAUMATIC, NORMAL INSPECTION - Neck Exam Neck Exam: Full ROM, Normal Inspection. absent: Lymphadenopathy, Meningismus - Respiratory Exam Respiratory Exam: Decreased Breath Sounds. absent: Accessory Muscle Use, Chest Wall Tenderness, Prolonged Expiratory Phase, Rales, Rhonchi, Wheezes - Cardiovascular Exam Cardiovascular Exam: REGULAR RHYTHM, RRR, +S1, +S2. absent: Bradycardia, Tachycardia, JVD - GI/Abdominal Exam GI & Abdominal Exam: Soft, Normal Bowel Sounds. absent: Distended, Firm, Guarding, Rigid - Back Exam Back Exam: absent: CVA tenderness (L), CVA tenderness (R) Assessment and Plan (1) Nodule of right lung Assessment & Plan: 11.6 mm elliptical-shaped lung nodule suspicious for metastatic disease from the lung. Due to position of the nodule near the pleura and size of nodule, bronchoscopic biopsy not appropriate. Plan for CT guided biopsy Status: Acute (2) Dyspnea Assessment & Plan: PRN Nabulizer treatment Status: Acute (3) Lung mass Status: Acute (4) Colon cancer metastasized to liver Status: Acute
--- NOTE | 2017-08-07 00:27 | CP.PCM.PN ---
Subjective - Date & Time of Evaluation Date of Evaluation: 08/06/17 Time of Evaluation: 13:10 - Subjective Subjective: No complaints. Objective - Vital Signs/Intake and Output Vital Signs (last 24 hours): Temp Pulse Resp BP Pulse Ox 97.6 F 83 20 109/76 95 08/06/17 15:01 08/06/17 15:01 08/06/17 15:01 08/06/17 15:01 08/06/17 15:01 - Medications Medications: Current Medications Amlodipine Besylate (Norvasc) 5 mg PO STAT [facility] Last Admin: 08/01/17 09:52 Dose: 5 mg Aspirin (Aspirin) 325 mg PO DAILY [facility] Last Admin: 08/05/17 13:56 Dose: Not Given Clonazepam (Klonopin) 2 mg PO TID [facility] Duloxetine HCl (Cymbalta) 60 mg PO DAILY [facility] Last Admin: 08/06/17 10:20 Dose: 60 mg Enoxaparin Sodium (Lovenox) 40 mg SC DAILY [facility] Last Admin: 08/06/17 10:23 Dose: 40 mg Escitalopram Oxalate (Lexapro) 20 mg PO DAILY [facility] Last Admin: 08/06/17 10:20 Dose: 20 mg Ibuprofen (Motrin Tab) 800 mg PO Q6 PRN PRN Reason: Pain, MILD (1-3) Oxycodone HCl (Oxycodone Immediate Release Tab) 15 mg PO Q3H PRN PRN Reason: Pain, moderate (4-7) Last Admin: 08/06/17 15:57 Dose: 15 mg Pantoprazole Sodium (Protonix Ec Tab) 40 mg PO DAILY [facility] Last Admin: 08/06/17 10:19 Dose: 40 mg Polyethylene Glycol (Miralax) 17 gm PO DAILY [facility] Last Admin: 08/06/17 10:19 Dose: Not Given Risperidone (Risperdal Tab) 2 mg PO BID [facility] Last Admin: 08/06/17 18:24 Dose: 2 mg Trazodone HCl (Desyrel) 50 mg PO HS [facility] Last Admin: 08/06/17 22:15 Dose: 50 mg Zolpidem Tartrate (Ambien) 10 mg PO HS [facility] Last Admin: 08/07/17 00:04 Dose: 10 mg - Labs Labs: 08/06/17 06:03 08/06/17 06:03 PT 12.8 SECONDS (9.7-12.2) H 08/06/17 06:03 INR 1.2 08/06/17 06:03 APTT 33 SECONDS (21-34) 08/06/17 06:03 - Head Exam Head Exam: ATRAUMATIC - Eye Exam Eye Exam: Normal appearance - ENT Exam ENT Exam: Mucous Membranes Dry - Respiratory Exam Respiratory Exam: NORMAL BREATHING PATTERN - Cardiovascular Exam Cardiovascular Exam: +S1, +S2 - GI/Abdominal Exam GI & Abdominal Exam: Normal Bowel Sounds Assessment and Plan (1) Lung mass Assessment & Plan: for percutaneous biopsy ? metastatic colon cancer Status: Acute (2) Pancytopenia Assessment & Plan: ? liver disease ? psych meds Status: Acute (3) Colon cancer Assessment & Plan: stage IV with liver mets outpatient treatment Status: Acute
[2017-08-07] MEDS: oxyCODONE 5 mg Immediate Release Tab PO PRN (05:23)
[2017-08-07 07:28] LABS: BASO % 0.2 % (0.0-2.0); EOS % 0.7 % (0.0-4.0); HEMOGLOBIN 11.3 g/dL (11.0-16.0); LYMPH # 1.1 K/uL (1.0-4.3); LYMPH % 21.2 % (20.0-40.0); MEAN CELL VOLUME 75.5 fL (81.0-99.0); MEAN CORPUSCULAR HEMOGLOBIN 24.9 pg (27.0-31.0); MEAN PLATELET VOLUME 9.2 fL (7.2-11.7); MONO # 0.3 K/uL (0.0-0.8); MONO % 6.4 % (0.0-10.0); NEUT # 3.7 K/uL (1.8-7.0); NEUT % 71.5 % (50.0-75.0); RBC 4.55 Mil/uL (3.80-5.20); RED CELL DISTRIBUTION WIDTH 17.1 % (11.5-14.5); WHITE BLOOD COUNT 5.2 K/uL (4.8-10.8)
[2017-08-07 07:43] LABS: ALB/GLOB RATIO 1.4 (1.0-2.1); ALBUMIN 3.8 g/dL (3.5-5.0); ALT/SGPT 28 U/L (9-52); AST/SGOT 32 U/L (14-36); BLOOD UREA NITROGEN 12 mg/dL (7-17); CALCIUM 8.8 mg/dl (8.6-10.4); GFR AFRICAN-AMERICAN > 60; GFR NON-AFRICAN AMERICAN > 60
[2017-08-07] MEDS: Pantoprazole 40 mg EC Tab PO SCH (10:05)
[2017-08-07] MEDS: Enoxaparin 40 mg Syringe SC SCH (10:06)
[2017-08-07] MEDS: POLYETHYLENE GLYCOL 3350 17 GM/Dose PACKET PO SCH (10:08)
--- NOTE | 2017-08-07 12:05 | CP.PCM.PN ---
<Thalia Velasquez - Last Filed: 08/07/17 14:02> Subjective - Date & Time of Evaluation Date of Evaluation: 08/07/17 Time of Evaluation: 12:00 - Subjective Subjective: PGY2 progress note for Dr. Harris Pt seen and examined at bedside. No acute events overnight. Pt is lying in bed comfortably. Denies having any CP, SOB, abd pain, N/V/D/c, F/C. no change sin bowel movements. tolerating po intake. Objective - Vital Signs/Intake and Output Vital Signs (last 24 hours): Temp Pulse Resp BP Pulse Ox 97.6 F 87 20 130/77 96 08/07/17 07:05 08/07/17 07:05 08/07/17 07:05 08/07/17 07:05 08/07/17 07:05 - Medications Medications: Current Medications Amlodipine Besylate (Norvasc) 5 mg PO STAT [facility] Last Admin: 08/01/17 09:52 Dose: 5 mg Aspirin (Aspirin) 325 mg PO DAILY [facility] Last Admin: 08/05/17 13:56 Dose: Not Given Clonazepam (Klonopin) 2 mg PO TID [facility] Last Admin: 08/07/17 10:06 Dose: 2 mg Duloxetine HCl (Cymbalta) 60 mg PO DAILY [facility] Last Admin: 08/07/17 10:06 Dose: 60 mg Enoxaparin Sodium (Lovenox) 40 mg SC DAILY [facility] Last Admin: 08/07/17 10:06 Dose: 40 mg Escitalopram Oxalate (Lexapro) 20 mg PO DAILY [facility] Last Admin: 08/07/17 10:06 Dose: 20 mg Ibuprofen (Motrin Tab) 800 mg PO Q6 PRN PRN Reason: Pain, MILD (1-3) Oxycodone HCl (Oxycodone Immediate Release Tab) 15 mg PO Q3H PRN PRN Reason: Pain, moderate (4-7) Last Admin: 08/07/17 05:23 Dose: 15 mg Pantoprazole Sodium (Protonix Ec Tab) 40 mg PO DAILY [facility] Last Admin: 08/07/17 10:05 Dose: 40 mg Polyethylene Glycol (Miralax) 17 gm PO DAILY [facility] Last Admin: 08/07/17 10:08 Dose: Not Given Risperidone (Risperdal Tab) 2 mg PO BID [facility] Last Admin: 08/06/17 18:24 Dose: 2 mg Trazodone HCl (Desyrel) 50 mg PO HS [facility] Last Admin: 08/06/17 22:15 Dose: 50 mg Zolpidem Tartrate (Ambien) 10 mg PO HS [facility] Last Admin: 08/07/17 00:04 Dose: 10 mg - Labs Labs: 08/07/17 07:14 08/07/17 07:14 PT 12.8 SECONDS (9.7-12.2) H 08/06/17 06:03 INR 1.2 08/06/17 06:03 APTT 33 SECONDS (21-34) 08/06/17 06:03 - Constitutional Appears: Non-toxic, No Acute Distress - Head Exam Head Exam: ATRAUMATIC, NORMOCEPHALIC - ENT Exam ENT Exam: Mucous Membranes Moist - Respiratory Exam Respiratory Exam: Clear to Ausculation Bilateral. absent: Accessory Muscle Use , Rales, Rhonchi, Wheezes, Respiratory Distress - Cardiovascular Exam Cardiovascular Exam: REGULAR RHYTHM, +S1, +S2. absent: Diastolic murmur, Gallop , Rubs, Murmur - GI/Abdominal Exam GI & Abdominal Exam: Soft, Normal Bowel Sounds. absent: Distended, Firm, Guarding, Rigid, Tenderness, Organomegaly - Extremities Exam Extremities Exam: absent: Pedal Edema, Tenderness - Neurological Exam Neurological Exam: Alert, Awake, Oriented x3 - Psychiatric Exam Psychiatric exam: Normal Affect, Normal Mood - Skin Skin Exam: Dry, Intact, Normal Color, Warm Assessment and Plan - Assessment and Plan (Free Text) Assessment: This is a 46 year old female with past medical hx of depression, pancytopenia, stage IV colon cancer, drug abuse, including cocaine, is admitted for chest pain r/o acs. Chest pain - Patient had troponins x 3 and EKGs which were negative since admission - CT of chest PE protocol done on admission was negative for PE. There was an 11.6 cm elliptical shaped nodule in the right posterolateral upper lung field bordering the pleural surface. -asa being held currently. - Cardiology was consulted. Due to recent normal stress test, stated that chest pain likely not cardiac related. Also stated that pt is acceptable risk to proceed with lung biopsy and may hold aspirin prior to biopsy is concern for bleeding - pain management with oxycodone 15 mg po q3 prn and ibuprofen 800 mg po q6 prn Lung Nodule - Pulm, Dr. Chappell was consulted. Recommends Ct guided biopsy. - Pt will need to be off Aspirin for 5 days prior to biopsy as pt is pancytopenic. Held Aspirin on 08/05/17 - Cardiology cleared for biopsy Pancytopenia - Likely 2/2 chemo - Heme/onc, Dr. Heath is consulted. - With thrombocytopenia, no overt bleeding noted. Benefits of placing pt on dvt prophylaxis with lovenox outweighs risks of bleeding due to pts history of colon cancer. Depression - Continue klonopin, cymbalta, lexapro, desyrel, risperdal Colon cancer stage IV - Pt will continue outpt chemo per Dr. Heath Hx of drug abuse -UDs positive for cocaine on admission -follow outpatient psych -encourage drug cessation Prophylaxis - Protonix - SCD - Lovenox Dispo: lung biopsy scheduled for 08/09. All orders and management per Dr. Harris Patient is stable for discharge home per Dr. Harris. Patient is to follow up with PMD upon discharge. Patient is also to follow up at [facility] for lung biopsy scheduled on at 10 am. Patient is to report to [facility] at 8:30 am for the biopsy. Please hold aspirin until after the biopsy. Patient is continue all home medications as prescribed. Discussed the risks of cocaine and other illicit drug use with patient and recommend cessation. <Rosaura Harris S - Last Filed: 08/08/17 15:04> Objective - Vital Signs/Intake and Output Vital Signs (last 24 hours): Temp Pulse Resp BP Pulse Ox 97.3 F L 97 H 20 122/77 97 08/07/17 15:01 08/07/17 15:01 08/07/17 15:01 08/07/17 15:01 08/07/17 15:01 - Labs Labs: 08/07/17 07:14 08/07/17 07:14 PT 12.8 SECONDS (9.7-12.2) H 08/06/17 06:03 INR 1.2 08/06/17 06:03 APTT 33 SECONDS (21-34) 08/06/17 06:03 Assessment and Plan (1) Abdominal pain Status: Acute (2) Acute renal insufficiency Status: Acute (3) Anemia Status: Acute (4) Anxiety Status: Acute (5) Arm sprain Status: Acute (6) Arthralgia of knee, left Status: Acute (7) Arthritis Status: Acute (8) Cellulitis Status: Acute (9) Cellulitis and abscess Status: Acute (10) Cellulitis of left knee Status: Acute (11) Chemotherapy adverse reaction Status: Acute (12) Chest pain Status: Acute (13) Chest pain Status: Acute (14) Closed head injury Status: Acute (15) Cocaine abuse Status: Acute (16) Colon cancer Status: Acute (17) Colon cancer metastasized to liver Status: Acute (18) Colonic mass Status: Acute (19) Constipation Status: Acute (20) Constipation Status: Acute (21) Contusion of chest Status: Acute (22) Contusion of knee, left Status: Acute (23) Contusion of knee, right Status: Acute (24) Contusion of lower back Status: Acute (25) Dizziness Status: Acute (26) Duodenitis Status: Acute (27) Dyspnea Status: Acute (28) External hemorrhoid, bleeding Status: Acute (29) Fall in bathtub Status: Acute (30) Fever Status: Acute (31) Gastrointestinal hemorrhage Status: Acute (32) Head injury Status: Acute (33) Head trauma Status: Acute (34) History of rectal bleeding Status: Acute (35) Infected abrasion Status: Acute (36) Infection due to portacath Status: Acute (37) Joint pain Status: Acute (38) Knee contusion Status: Acute (39) Knee injury Status: Acute (40) Knee pain Status: Acute (41) Knee pain, bilateral Status: Acute (42) Knee sprain, bilateral Status: Acute (43) Left sided abdominal pain Status: Acute (44) Leukocytosis Status: Acute (45) Liver lesion Status: Acute (46) Lung mass Status: Acute (47) Muscle pain Status: Acute (48) Nausea Status: Acute (49) Nodule of right lung Status: Acute (50) Osteoarthritis Status: Acute (51) Pancytopenia Status: Acute (52) Pancytopenia due to antineoplastic chemotherapy Status: Acute (53) Rectal bleeding Status: Acute (54) Shoulder contusion Status: Acute (55) Shoulder pain Status: Acute (56) Shoulder sprain Status: Acute (57) Status post chemotherapy Status: Acute (58) Total knee replacement status Status: Acute (59) Uncontrolled hypertension Status: Acute (60) Vertigo Status: Acute (61) Anxiety Status: Chronic (62) Iron deficiency anemia Status: Chronic Attending/Attestation - Attestation I have personally seen and examined this patient.: Yes I have fully participated in the care of the patient.: Yes I have reviewed all pertinent clinical information, including history, physical exam and plan: Yes Notes (Text): case seen and d.w staff and resident, concurred with finding and management..
[2017-08-07 15:34] VITALS: BP 122/77; PULSE 97; TEMP 97.3; O2SAT 97
--- NOTE | 2017-08-07 16:34 | CP.PCM.PN ---
Subjective - Date & Time of Evaluation Date of Evaluation: 08/07/17 Time of Evaluation: 09:45 - Subjective Subjective: Patient seen and examined and is in no respiratory distress. Patient is currently off aspirin and awaiting CT guided biopsy with IR. Per IR nurse patient will either go on Saturday (08/09) or Saturday (08/12.) Patient is aware that this can be scheduled as an outpatient, but states she has no car/ transportation and would rather have it done this admission. 1. Pulmonary nodule Continue to hold aspirin until patient can have biopsy done. Stable for discharge from pulmonary standpoint; follow-up results of biopsy outpatient. Objective - Vital Signs/Intake and Output Vital Signs (last 24 hours): Temp Pulse Resp BP Pulse Ox 97.3 F L 97 H 20 122/77 97 08/07/17 15:01 08/07/17 15:01 08/07/17 15:01 08/07/17 15:01 08/07/17 15:01 - Medications Medications: Current Medications Amlodipine Besylate (Norvasc) 5 mg PO STAT [facility] Last Admin: 08/01/17 09:52 Dose: 5 mg Aspirin (Aspirin) 325 mg PO DAILY [facility] Last Admin: 08/05/17 13:56 Dose: Not Given Clonazepam (Klonopin) 2 mg PO TID [facility] Last Admin: 08/07/17 14:24 Dose: 2 mg Duloxetine HCl (Cymbalta) 60 mg PO DAILY [facility] Last Admin: 08/07/17 10:06 Dose: 60 mg Enoxaparin Sodium (Lovenox) 40 mg SC DAILY [facility] Last Admin: 08/07/17 10:06 Dose: 40 mg Escitalopram Oxalate (Lexapro) 20 mg PO DAILY [facility] Last Admin: 08/07/17 10:06 Dose: 20 mg Ibuprofen (Motrin Tab) 800 mg PO Q6 PRN PRN Reason: Pain, MILD (1-3) Oxycodone HCl (Oxycodone Immediate Release Tab) 15 mg PO Q3H PRN PRN Reason: Pain, moderate (4-7) Last Admin: 08/07/17 05:23 Dose: 15 mg Pantoprazole Sodium (Protonix Ec Tab) 40 mg PO DAILY [facility] Last Admin: 08/07/17 10:05 Dose: 40 mg Polyethylene Glycol (Miralax) 17 gm PO DAILY [facility] Last Admin: 08/07/17 10:08 Dose: Not Given Risperidone (Risperdal Tab) 2 mg PO BID [facility] Last Admin: 08/07/17 12:01 Dose: 2 mg Trazodone HCl (Desyrel) 50 mg PO HS [facility] Last Admin: 08/06/17 22:15 Dose: 50 mg Zolpidem Tartrate (Ambien) 10 mg PO HS [facility] Last Admin: 08/07/17 00:04 Dose: 10 mg - Labs Labs: 08/07/17 07:14 08/07/17 07:14 PT 12.8 SECONDS (9.7-12.2) H 08/06/17 06:03 INR 1.2 08/06/17 06:03 APTT 33 SECONDS (21-34) 08/06/17 06:03
--- NOTE | 2017-08-13 08:06 | PQF CHESTP ---
This form is a permanent part of the medical record There is clinical documentation of CHEST PAIN with evaluation, treatment, and / or monitoring present in the medical record. Please clarify the possible / probable cause of CHEST PAIN. ==PATIENT FODULES ==PANCYTOPENIA 2/2 CHEMO ==OTHER/UNKNOWN ETIOLOGY Source Documentation: Chart Location: [X] Progress Notes [] Consults [] Radiology Results Date: [] Date: [] Date:[] ED Records: [X] H&P: [] Other: [] PHYSICIAN RESPONSE CAUSE OF CHEST PAIN: PLease Check [] Documentation: [] Musculoskeletal Chest Pain [] Costochondritis [] Gastroesophageal Reflux Disease (GERD) [] Acute Gastritis [] Other [] [] Unknown [] In responding to this query, please exercise your independent professional judgment. The fact that a question is asked does not imply that any particular answer is desired or expected. Thank you for your clarification on this documentation. 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
== END 2017-08-07 17:22 | DRG 313 ==
LOC: C.ER 12:30 → C.9E 16:47 → C.5S 17:43 → C.6T 08-03
PROVIDERS: ADMIT Internal Medicine Nephrology; ATTEND Internal Medicine Nephrology
DX: R07.89 Other chest pain (principal); D61.810 Antineoplastic chemotherapy induced pancytopenia; C78.7 Secondary malignant neoplasm of liver and intrahepatic bile duct; L03.116 Cellulitis of left lower limb; I10 Essential (primary) hypertension; F31.9 Bipolar disorder, unspecified; J45.909 Unspecified asthma, uncomplicated; M06.9 Rheumatoid arthritis, unspecified; Z92.21 Personal history of antineoplastic chemotherapy; Z85.038 Personal history of other malignant neoplasm of large intestine; Z68.37 Body mass index [BMI] 37.0-37.9, adult; R91.1 Solitary pulmonary nodule; F14.10 Cocaine abuse, uncomplicated; F41.9 Anxiety disorder, unspecified; D50.9 Iron deficiency anemia, unspecified; K59.00 Constipation, unspecified

== ENCOUNTER 2017-08-09 07:59 | Day surgery (SDC) | payer MEDICARE ==
[2017-08-09 09:02] VITALS: BP 128/84; PULSE 92; RESP 20; TEMP 97.1; O2SAT 96
[2017-08-09 09:35] LABS: BARBITURATES, UR NEGATIVE (NEGATIVE); OPIATES, UR NEGATIVE (NEGATIVE); PHENCYCLIDINE, UR NEGATIVE (NEGATIVE)
[2017-08-09 10:43] LABS: BENZODIAZEPINES, UR POSITIVE (NEGATIVE)
== END 2017-08-09 11:55 | disposition home or self-care (01) ==
LOC: C.SPRAD 07:59
PROVIDERS: ATTEND Radiology Vascular & Interventional Radiology
DX: R19.7 Diarrhea, unspecified (principal); F14.10 Cocaine abuse, uncomplicated; Z53.8 Procedure and treatment not carried out for other reasons

== ENCOUNTER 2017-08-19 10:02 | Day surgery (SDC) | payer MEDICARE ==
[2017-08-19 10:42] VITALS: BMI 37.9
[2017-08-19] MEDS ORDERED: Midazolam 2 MG/2 ML VIAL ONE (11:46)
--- NOTE | 2017-08-19 14:16 | CT ---
PROCEDURE: Date of procedure: 08/19/2017 Procedure: 1. CT-guided lung mass biopsy, CPT [address] Guidance for biopsy, [address] Radiation: 1199.53 mGy-cm Medications: The patient was sedated by anesthesiologist along with physiologic monitoring. HISTORY: Right upper lobe lung nodule TECHNIQUE: Following informed consent, the Pt's chest was marked. The Pt was placed supine on the CT table and procedure time out was performed. A noncontrast CT scan was performed. Noncontrast CT scan confirmed the presence of a peripheral 1 cm nodule. A skin localizer was placed on the patient's right chest and a repeat CT scan was performed. The skin was marked, prepped, and draped in the usual sterile fashion. After the skin was anesthetized with lidocaine and the patient sedated by the anesthesiologist, a 20 gauge core needle was advanced percutaneously under direct CT guidance into the nodule. Upon confirmation of needle position, two 20-gauge core specimens were obtained and sent for routine pathology. The needle was removed and a xeroform dressing was applied. A post biopsy CT scan showed no pneumothorax. IMPRESSION: CT guided core biopsy right lung nodule.
--- NOTE | 2017-08-19 14:33 | CP.SDSHP ---
Same Day Surgery H & P - History Proposed Procedure: CT guided lung nodule biopsy Pre-Op Diagnosis: Lung nodule - Allergies Allergies: Allergies No Known Allergies Allergy (Verified 07/31/17 12:48) - Physical Exam Mental Status: Alert & Oriented x3 Neuro: WNL Heart: WNL Lungs: WNL - Impression Impression: Pt with a 1 cm right upper lobe lung nodule. Plan CT guided biopsy. Informed consent and risk of pneumothorax requiring chest tube explained to the patient. Pt. Evaluated Today:Candidate for Anesthesia & Procedure: Yes (ASA 3 Malampati 3) - Date & Time Date: 08/19/17 Time: 11:40 Short Stay Discharge - Short Stay Discharge Admitting Diagnosis/Reason for Visit: LUNG NODULE Disposition: HOME/ ROUTINE
--- NOTE | 2017-08-19 14:34 | PCM.SURG1 ---
Surgeon's Initial Post Op Note - Surgeon's Notes Surgeon: Porfirio William MD Laborer Hide House: NONE Type of Anesthesia: IV Sedation Pre-Operative Diagnosis: Lung nodule Operative Findings: CT showed a 1 cm right upper lobe lung nodule Post-Operative Diagnosis: Lung nodule Operation Performed: CT guided core biopsy Specimen/Specimens Removed: 20 g core x 2 Estimated Blood Loss: EBL {In ML}: 0 Blood Products Given: N/A Drains Used: No Drains Post-Op Condition: Good Date of Surgery/Procedure: 08/19/17 Time of Surgery/Procedure: 12:20
--- NOTE | 2017-08-21 12:48 | RAD ---
PROCEDURE: CHEST RADIOGRAPH, 1 VIEW HISTORY: Status post right lung nodule biopsy. COMPARISON: 07/31/2017 FINDINGS: LUNGS: Clear. PLEURA: No pneumothorax or pleural fluid seen. CARDIOVASCULAR: No radiographic findings to suggest acute or significant cardiovascular disease. Venous access catheter in stable, satisfactory position. OSSEOUS STRUCTURES: No significant abnormalities. VISUALIZED UPPER ABDOMEN: Normal. OTHER FINDINGS: None. IMPRESSION: No active disease. No acute/significant interval changes.
== END 2017-08-19 14:29 | disposition home or self-care (01) ==
LOC: C.SPRAD 10:02
PROVIDERS: ATTEND Radiology Vascular & Interventional Radiology
DX: C78.01 Secondary malignant neoplasm of right lung (principal); C18.9 Malignant neoplasm of colon, unspecified
CPT/HCPCS: 32405; 71045; 84703; 88305; 88342; J2250; J3010

== ENCOUNTER 2017-09-01 12:49 | Observation (INO) | payer MEDICARE ==
[2017-09-01 12:50] VITALS: BMI 37.9
[2017-09-01] MEDS ORDERED: Sodium Chloride 0.9% 1,000 ML IV ONE (13:07)
--- NOTE | 2017-09-01 13:11 | C.PDOC ---
History Of Present Illness 46 year old female, with PMHx of stage 4 colon CA, and lung CA, presents to ED for evaluation of right sided abdominal pain worse since the past 3-4 days. Denies chest pain, shortness of breath, n/v/d, urinary symptoms, or fever. Time Seen by Provider: 09/01/17 13:00 Chief Complaint (Nursing): Abdominal Pain History Per: Patient History/Exam Limitations: no limitations Onset/Duration Of Symptoms: Days Current Symptoms Are (Timing): Still Present Radiation Of Pain To:: None Quality Of Discomfort: "Pain" Recent travel outside of the [place]: No Additional History Per: Patient Past Medical History Reviewed: Historical Data, Nursing Documentation, Vital Signs Vital Signs: Last Vital Signs Temp 98 F 09/01/17 16:26 Pulse 86 09/01/17 16:26 Resp 18 09/01/17 16:26 BP 160/103 H 09/01/17 16:26 Pulse Ox 99 09/01/17 19:17 - Medical History PMH: Anemia, Anxiety, Arthritis (osteoarthritis), Asthma, Back Problems, Bipolar Disorder, Depression, HTN, Malignancy (Colon), Rheumatoid Arthritis, Schizophrenia Denies: Chronic Kidney Disease - [facility] Procedures CLOSED ENDOSCOPIC BIOPSY OF LARGE INTESTINE (05/23/14) COLONOSCOPY (08/12/14) DX ULTRASOUND-ABDOMEN (05/23/14) INSERTION OF TOTALLY IMPLANTABLE VASC ACCESS DEVIC (05/23/14) LAPAROSCOP LYSIS-PERITONEAL ADHES (05/23/14) LAPAROSCOPIC SIGMOIDECTOMY (05/23/14) OTHER ENDOSCOPY OF SM INTEST (05/23/14) PACKED CELL TRANSFUSION (05/23/14) PERCUTAN NEEDLE BX OF LIVER (05/23/14) REMOVAL OF VAD FROM TRUNK SUBCU/FASCIA, PERC APPROACH (03/16/15) Family History: States: Unknown Family Hx - Social History Hx Tobacco Use: No Hx Alcohol Use: No Hx Substance Use: Yes - Immunization History Hx Tetanus Toxoid Vaccination: No Hx Influenza Vaccination: No Hx Pneumococcal Vaccination: No Review Of Systems Except As Marked, All Systems Reviewed And Found Negative. Constitutional: Negative for: Fever, Chills Cardiovascular: Negative for: Chest Pain, Palpitations Respiratory: Negative for: Cough, Shortness of Breath Gastrointestinal: Positive for: Abdominal Pain. Negative for: Nausea, Vomiting , Diarrhea, Constipation Genitourinary: Negative for: Dysuria, Frequency, Hematuria, Vaginal Discharge Musculoskeletal: Negative for: Back Pain Neurological: Negative for: Headache, Dizziness Physical Exam - Physical Exam Appears: Non-toxic, No Acute Distress Skin: Normal Color, Warm, Dry Head: Atraumatic, Normacephalic Eye(s): bilateral: Normal Inspection Oral Mucosa: Moist Neck: Normal ROM, Supple Chest: Symmetrical Cardiovascular: Rhythm Regular, No Murmur Respiratory: Normal Breath Sounds, No Rales, No Rhonchi, No Wheezing Gastrointestinal/Abdominal: Soft, Tenderness (diffuse worse on right side), No Guarding, No Rebound Back: No CVA Tenderness Extremity: Normal ROM Neurological/Psych: Oriented x3, Normal Speech ED Course And Treatment - Laboratory Results Result Diagrams: 09/01/17 13:30 09/01/17 13:30 O2 Sat by Pulse Oximetry: 99 (RA) Pulse Ox Interpretation: Normal Medical Decision Making Medical Decision Making: Plan: Blood work Urinalysis Morphine, IV fluids Reassess labs unremarkable. ct shows known mets. case discussed with pmd request obs. Disposition - Disposition Disposition: HOSPITALIZED Disposition Time: 04:00 Condition: STABLE - Clinical Impression Clinical Impression: Abdominal pain, Metastatic colon cancer to liver - Scribe Statement The provider has reviewed the documentation as recorded by the Scribe Elias Harris All medical record entries made by the Scribe were at my direction and personally dictated by me. I have reviewed the chart and agree that the record accurately reflects my personal performance of the history, physical exam, medical decision making, and the department course for this patient. I have also personally directed, reviewed, and agree with the discharge instructions and disposition. Decision To Admit - Pt Status Changed To: Hospital Disposition Of: Observation - . Bed Request Type: Regular Admitting Physician: Rosaura Harris Patient Diagnosis: Abdominal pain, Metastatic colon cancer to liver
[2017-09-01] MEDS ORDERED: Sodium Chloride 0.9% 1,000 ML ONE (13:34)
[2017-09-01] MEDS ORDERED: Morphine 4 MG/ML VIAL ONE (13:34)
[2017-09-01 13:37] LABS: SQUAMOUS EPITHIAL 4 /hpf (0-5); URINE BACTERIA RARE (<OCC); URINE BILIRUBIN NEGATIVE (NEGATIVE); URINE BLOOD NEGATIVE (NEGATIVE); URINE CLARITY Clear (Clear); URINE COLOR Straw (YELLOW); URINE GLUCOSE (UA) NORMAL (Normal); URINE LEUKOCYTE ESTERASE NEG Leu/uL (Negative); URINE PROTEIN NEGATIVE (NEGATIVE); URINE UROBILINOGEN NORMAL mg/dL (0.2-1.0)
[2017-09-01 13:39] LABS: BASO % 0.5 % (0.0-2.0); EOS % 0.6 % (0.0-4.0); HEMOGLOBIN 10.8 g/dL (11.0-16.0); MEAN CELL VOLUME 76.7 fL (81.0-99.0); MEAN CORPUSCULAR HEMOGLOBIN 25.2 pg (27.0-31.0); MEAN CORPUSCULAR HGB CONC 32.9 g/dL (33.0-37.0); MEAN PLATELET VOLUME 8.4 fL (7.2-11.7); MONO # 0.3 K/uL (0.0-0.8); MONO % 5.8 % (0.0-10.0); NEUT # 3.5 K/uL (1.8-7.0); NEUT % 73.1 % (50.0-75.0); NRBC % 0.2 % (0.0-2.0); RBC 4.3 Mil/uL (3.80-5.20); RED CELL DISTRIBUTION WIDTH 17.8 % (11.5-14.5); WHITE BLOOD COUNT 4.8 K/uL (4.8-10.8)
[2017-09-01 13:47] LABS: INR 1.1; PROTHROMBIN TIME 12.3 SECONDS (9.7-12.2)
[2017-09-01 14:09] LABS: ALB/GLOB RATIO 1.3 (1.0-2.1); ALBUMIN 3.6 g/dL (3.5-5.0); ALT/SGPT 24 U/L (9-52); AST/SGOT 23 U/L (14-36); BLOOD UREA NITROGEN 10 mg/dL (7-17); CALCIUM 8.7 mg/dl (8.6-10.4); GFR AFRICAN-AMERICAN > 60; GFR NON-AFRICAN AMERICAN > 60; LIPASE 81 U/L (23-300)
[2017-09-01] MEDS ORDERED: Iodixanol 320 MG/ML 100 ML BOTTLE IV ONE (14:19)
--- NOTE | 2017-09-01 16:00 | CT ---
PROCEDURE: CT Abdomen and Pelvis with Oral contrast. HISTORY: right sided upper pain h/o of metastatic colon ca COMPARISON: Correlation made with CTA chest dated 07/31/2017 which image the upper abdomen TECHNIQUE: Contiguous axial images of the abdomen pelvis performed r following intravenous injection of approximately 100 cc Visipaque 320 contrast material. Additional 2D sagittal and coronal reformats generated. This CT exam was performed using one or more of the following dose reduction techniques: Automated exposure control, adjustment of the mA and/or kV according to patient size, and/or use of iterative reconstruction technique. Radiation dose: Total exam DLP = 1417.82 mGy-cm. FINDINGS: LOWER THORAX: Minor linear scarring seen in the left lung base. There also mild passive/dependent type atelectatic changes both posterior lower lung arvizu. Heart appears mildly enlarged. LIVER: Liver is enlarged. There is a rounded approximately 4.5 x 3.7 cm low-attenuation lesion left lobe liver with a 2nd smaller lesion more anteromedially located near the hepatic surface measuring 2.3 x 1.6 cm. Two additional smaller low-attenuation lesions seen along the inferior margin of the left lobe of the liver. Findings most likely represent metastatic deposits. . Questionable minimal fatty hepatic infiltration Portal and splenic veins are opacified. . GALLBLADDER AND BILE DUCTS: Gallbladder physiologically distended. No evidence of intraluminal gallbladder calculi. PANCREAS: Pancreas appears slightly atrophic and fatty replaced. SPLEEN: Spleen is enlarged. ADRENALS: No adrenal lesions. KIDNEYS AND URETERS: Kidneys demonstrate symmetric nephrograms. No evidence of nephrolithiasis or hydronephrosis. BLADDER: Minimal urinary bladder wall thickening likely due to incomplete distention however correlation with urinalysis recommended REPRODUCTIVE: Uterus unremarkable as visualized. APPENDIX: Appendix is unremarkable. BOWEL: The evaluation of the bowel is somewhat limited due to the lack of oral contrast material. Stomach is distended with food debris/liquid and air. Visualized loops of small bowel exhibit normal contour and caliber. No evidence of acute mechanical small bowel obstruction. Moderate amount of stool seen throughout the large bowel consistent with mild fecal retention/constipation. There is an anastomosis seen along mid to distal sigmoid colon. PERITONEUM: Unremarkable. No fluid collection. No free air. Small fat containing umbilical hernia. LYMPH NODES: Unremarkable. No enlarged lymph nodes. VASCULATURE: No evidence of abdominal aortic aneurysm. BONES: Mild multilevel degenerative spondylosis of the lower thoracic and lumbar spine OTHER FINDINGS: None. IMPRESSION: There are multiple low-attenuation lesions scattered throughout the left lobe liver consistent with metastatic deposits. . . Splenomegaly. Postoperative changes involving the sigmoid colon.
[2017-09-01 16:44] LABS: BARBITURATES, UR NEGATIVE (NEGATIVE); BENZODIAZEPINES, UR NEGATIVE (NEGATIVE); OPIATES, UR NEGATIVE (NEGATIVE); PHENCYCLIDINE, UR NEGATIVE (NEGATIVE)
[2017-09-01] MEDS: metroNIDAZOLE IV 500 mg/100 ml 500 MG/100 ML BAG IVPB SCH (22:29)
[2017-09-01] MEDS: oxyCODONE 5 mg Immediate Release Tab PO PRN (22:30)
[2017-09-01] MEDS: Ciprofloxacin 400mg/200ml D5W 400 MG/200 ML BAG IVPB SCH (22:30)
[2017-09-02 00:32] VITALS: RESP 20
[2017-09-02] MEDS: metroNIDAZOLE IV 500 mg/100 ml 500 MG/100 ML BAG IVPB SCH ×2 (05:14→14:38)
--- NOTE | 2017-09-02 07:30 | CP.PCM.CON ---
<Gregory Ledbetter - Last Filed: 09/02/17 10:59> History of Present Illness - History of Present Illness History of Present Illness: GI Fellow PGY4, Consult note. Kenya Hsieh is a 46yo WF with hx of metastatic colon cancer s/p sigmoid resection and chemo, chronic constipation, bipolar disorder presenting with abdominal pain x 2 days. The pain was a sharp, diffuse, 10/10 and constant. The pain has resolved at this point after BM. She takes miralax at home. She also takes immodium at times. She denies fever, chills, vomiting or weight loss, GI bleeding. Patient was recently diagnosed with metastatic lung cancer from colon primary. She last saw oncology services last week and was told they will need to increase chemo. PMHx - Colon Cancer with liver mets 2014 s/p resection and chemo with Dr. Heath. Lung mets Dx 07/2017. Chronic constipation. PSHx - Last colonoscopy 2016 with diverticulosis, hemorrhoids, no signs of cancerous lesion but bowel prep suboptimal. FmHx - father lung cancer, 2016. SocHx - Non smoker, previous alcohol abuse, now drinks occasionally. On disability, living with friends. Cocaine + last admission. 12pt ROS completed and negative except for as above. Past Patient History - Infectious Disease Hx of Infectious Diseases: None - Past Medical History & Family History Past Medical History?: Yes - Past Social History Smoking Status: Former Smoker - CARDIAC Hx Hypertension: Yes - PULMONARY Hx Asthma: Yes - NEUROLOGICAL Hx Neurological Disorder: No - HEENT Hx HEENT Problems: No - RENAL Hx Chronic Kidney Disease: No - ENDOCRINE/METABOLIC Hx Endocrine Disorders: No - HEMATOLOGICAL/ONCOLOGICAL Hx Anemia: Yes - INTEGUMENTARY Hx Dermatological Problems: No - MUSCULOSKELETAL/RHEUMATOLOGICAL Hx Arthritis: Yes (osteoarthritis) Hx Rheumatoid Arthritis: Yes - GASTROINTESTINAL Hx Gastrointestinal Disorders: Yes Hx Bowel Surgery: Yes Other/Comment: COLON CANCER STAGE 4 WITH CHEMOTHERAPY, last chemo was august 26 2017. R side port a cath - GENITOURINARY/GYNECOLOGICAL Hx Genitourinary Disorders: No - PSYCHIATRIC Hx Anxiety: Yes Hx Bipolar Disorder: Yes Hx Depression: Yes Hx Schizophrenia: Yes Hx Substance Use: Yes - SURGICAL HISTORY Hx Surgeries: Yes (SEE COMMENT) Hx Orthopedic Surgery: Yes (left knee TKR 03/2017) Hx Tubal Ligation: Yes (2005) Hx Vascular Access Device: Yes (RIGHT SUBCLAVIAN 2014) Other/Comment: colon cancer surgery april 2014 to remove tumor, rt side subclavian Port - ANESTHESIA Hx Anesthesia: Yes Hx Anesthesia Reactions: No Hx Malignant Hyperthermia: No Has any member of the family had a problem w/ anesthesia?: No Meds Allergies/Adverse Reactions: Allergies Allergy/AdvReac Type Severity Reaction Status Date / Time No Known Allergies Allergy Verified 07/31/17 12:48 - Medications Medications: Current Medications Amlodipine Besylate (Norvasc) 5 mg PO DAILY [facility] Aspirin (Aspirin) 325 mg PO DAILY [facility] Clonazepam (Klonopin) 2 mg PO TID [facility] Duloxetine HCl (Cymbalta) 60 mg PO DAILY [facility] Enoxaparin Sodium (Lovenox) 40 mg SC DAILY [facility] Escitalopram Oxalate (Lexapro) 20 mg PO DAILY [facility] Home Med (Solifenacin Succinate [Vesicare]) 5 mg PO DAILY [facility] Ciprofloxacin (Cipro 400mg/200ml Dsw) 400 mg in 200 mls @ 133 mls/hr IVPB Q12H [facility] PRN Reason: Protocol Last Admin: 09/01/17 22:30 Dose: 133 mls/hr Metronidazole (Flagyl) 500 mg in 100 mls @ 100 mls/hr IVPB Q8H [facility] PRN Reason: Protocol Last Admin: 09/02/17 05:14 Dose: 100 mls/hr Ibuprofen (Motrin Tab) 800 mg PO Q6 PRN PRN Reason: PAIN, MILD 1-3 Oxycodone HCl (Oxycodone Immediate Release Tab) 15 mg PO Q3H PRN PRN Reason: SEVERE PAIN 8-10 Last Admin: 09/01/17 22:30 Dose: 15 mg Oxycodone/Acetaminophen (Percocet 5/325 Mg Tab) 1 tab PO Q6H PRN PRN Reason: Pain, moderate (4-7) Stop: 09/04/17 20:47 Polyethylene Glycol (Miralax) 17 gm PO DAILY [facility] Risperidone (Risperdal Tab) 2 mg PO BID [facility] Trazodone HCl (Desyrel) 50 mg PO HS [facility] Last Admin: 09/01/17 22:30 Dose: 50 mg Zolpidem Tartrate (Ambien) 5 mg PO HS [facility] Last Admin: 09/01/17 22:30 Dose: 5 mg Physical Exam - Constitutional Appears: Non-toxic, No Acute Distress - Head Exam Head Exam: ATRAUMATIC, NORMAL INSPECTION, NORMOCEPHALIC - Eye Exam Eye Exam: EOMI, Normal appearance, PERRL - ENT Exam ENT Exam: Mucous Membranes Moist, Normal Exam - Respiratory Exam Respiratory Exam: Clear to Auscultation Bilateral, NORMAL BREATHING PATTERN. absent: Wheezes - Cardiovascular Exam Cardiovascular Exam: REGULAR RHYTHM, +S1, +S2 - GI/Abdominal Exam GI & Abdominal Exam: Normal Bowel Sounds, Soft. absent: Organomegaly, Pulsatile Mass, Tenderness - Rectal Exam Rectal Exam: Deferred - Extremities Exam Extremities exam: Positive for: normal inspection. Negative for: pedal edema - Neurological Exam Neurological exam: Alert, CN II-XII Intact, Oriented x3 - Psychiatric Exam Psychiatric exam: Anxious, Flat Affect, Normal Mood - Skin Skin Exam: Dry, Intact, Normal Color, Warm Results - Vital Signs Recent Vital Signs: Last Vital Signs Temp 98.2 F 09/02/17 00:00 Pulse 81 09/02/17 00:00 Resp 20 09/02/17 00:00 BP 142/90 09/02/17 00:00 Pulse Ox 96 09/02/17 00:00 - Labs Result Diagrams: 09/01/17 13:30 09/01/17 13:30 Labs: Laboratory Results - last 24 hr 09/01/17 09/01/17 09/01/17 13:30 13:30 13:30 WBC 4.8 RBC 4.30 Hgb 10.8 L Hct 33.0 L MCV 76.7 L MCH 25.2 L MCHC 32.9 L RDW 17.8 H Plt Count 118 L D MPV 8.4 Neut % (Auto) 73.1 Lymph % (Auto) 20.0 [place] % (Auto) 5.8 Eos % (Auto) 0.6 Baso % (Auto) 0.5 Neut # (Auto) 3.5 Lymph # (Auto) 1.0 [place] # (Auto) 0.3 Eos # (Auto) 0.0 Baso # (Auto) 0.0 Differential Comment PT 12.3 H INR 1.1 APTT 43 H Sodium Potassium Chloride Carbon Dioxide Anion Gap BUN Creatinine Est GFR ( Amer) Est GFR (Non-Af Amer) Random Glucose Calcium Total Bilirubin AST ALT Alkaline Phosphatase Total Protein Albumin Globulin Albumin/Globulin Ratio Lipase Urine Color Straw Urine Clarity Clear Urine pH 6.0 Ur Specific [place] 1.003 Urine Protein Negative Urine Glucose (UA) Normal Urine Ketones Negative Urine Blood Negative Urine Nitrate Negative Urine Bilirubin Negative Urine Urobilinogen Normal Ur Leukocyte Esterase Neg Urine WBC (Auto) 1 Urine RBC (Auto) 1 Ur Squamous Epith Cells 4 Urine Bacteria Rare Urine Opiates Screen Urine Methadone Screen Ur Barbiturates Screen Ur Phencyclidine Scrn Ur Amphetamines Screen U Benzodiazepines Scrn U Oth Cocaine Metabols U Cannabinoids Screen 09/01/17 09/01/17 13:30 16:22 WBC RBC Hgb Hct MCV MCH MCHC RDW Plt Count MPV Neut % (Auto) Lymph % (Auto) [place] % (Auto) Eos % (Auto) Baso % (Auto) Neut # (Auto) Lymph # (Auto) [place] # (Auto) Eos # (Auto) Baso # (Auto) Differential Comment PT INR APTT Sodium 144 Potassium 3.4 L Chloride 106 Carbon Dioxide 26 Anion Gap 15 BUN 10 Creatinine 0.8 Est GFR ( Amer) > 60 Est GFR (Non-Af Amer) > 60 Random Glucose 67 Calcium 8.7 Total Bilirubin 0.3 AST 23 ALT 24 Alkaline Phosphatase 72 Total Protein 6.5 Albumin 3.6 Globulin 2.9 Albumin/Globulin Ratio 1.3 Lipase 81 Urine Color Urine Clarity Urine pH Ur Specific [place] Urine Protein Urine Glucose (UA) Urine Ketones Urine Blood Urine Nitrate Urine Bilirubin Urine Urobilinogen Ur Leukocyte Esterase Urine WBC (Auto) Urine RBC (Auto) Ur Squamous Epith Cells Urine Bacteria Urine Opiates Screen Negative Urine Methadone Screen Negative Ur Barbiturates Screen Negative Ur Phencyclidine Scrn Negative Ur Amphetamines Screen Negative U Benzodiazepines Scrn Negative U Oth Cocaine Metabols Negative U Cannabinoids Screen Negative Assessment & Plan - Assessment and Plan (Free Text) Assessment: 46F with hx of metastatic colon cancer, chronic constipation, bipolar disorder presenting with abdominal pain relieved by bowel movement and negative workup consistent with constipation. #Abdominal pain - resolved #Chronic constipation #Metastatic colon cancer s/p resection (2014) and chemo last 08/26/17 #Bipolar disorder #Iron deficiency anemia #Mild thrombocytopenia #Diverticulosis #Hemorrhoids Plan: -Continue supportive care -CT abd/pelv reviewed and agree with liver lesions and colonic stool retention -Patient concerned with Lung mass and believes she needs it removed. Defer to oncology team. -Regular diet okay -Start bowel regimen: Miralax BID. Dulcolax x1 if needed. Fleet enema ordered x1. -Recommend to discontinue cipro/flagyl. Doubt Diverticulitis. Pain non-focal, no fevers or leukocytosis. -Colonoscopy as outpt. Otherwise no planned procedures. -Continue colace and miralax as outpt. -Okay to discharge from GI perspective. Please call for any questions. Thank you for this consult. - Date & Time Date: 09/02/17 Time: 07:49 <Manolo Sharma Y - Last Filed: 09/02/17 13:52> Meds - Medications Medications: Current Medications Amlodipine Besylate (Norvasc) 5 mg PO DAILY [facility] Last Admin: 09/02/17 08:22 Dose: 5 mg Aspirin (Aspirin) 325 mg PO DAILY [facility] Last Admin: 09/02/17 10:12 Dose: 325 mg Clonazepam (Klonopin) 2 mg PO TID [facility] Last Admin: 09/02/17 10:12 Dose: 2 mg Duloxetine HCl (Cymbalta) 60 mg PO DAILY [facility] Last Admin: 09/02/17 10:12 Dose: 60 mg Enoxaparin Sodium (Lovenox) 40 mg SC DAILY [facility] Last Admin: 09/02/17 10:13 Dose: 40 mg Escitalopram Oxalate (Lexapro) 20 mg PO DAILY [facility] Last Admin: 09/02/17 10:13 Dose: 20 mg Home Med (Solifenacin Succinate [Vesicare]) 5 mg PO DAILY [facility] Ciprofloxacin (Cipro 400mg/200ml Dsw) 400 mg in 200 mls @ 133 mls/hr IVPB Q12H [facility] PRN Reason: Protocol Last Admin: 09/02/17 12:00 Dose: 133 mls/hr Metronidazole (Flagyl) 500 mg in 100 mls @ 100 mls/hr IVPB Q8H [facility] PRN Reason: Protocol Last Admin: 09/02/17 05:14 Dose: 100 mls/hr Ibuprofen (Motrin Tab) 800 mg PO Q6 PRN PRN Reason: PAIN, MILD 1-3 Oxycodone HCl (Oxycodone Immediate Release Tab) 15 mg PO Q3H PRN PRN Reason: SEVERE PAIN 8-10 Last Admin: 09/01/17 22:30 Dose: 15 mg Oxycodone/Acetaminophen (Percocet 5/325 Mg Tab) 1 tab PO Q6H PRN PRN Reason: Pain, moderate (4-7) Stop: 09/04/17 20:47 Polyethylene Glycol (Miralax) 17 gm PO BID [facility] Last Admin: 09/02/17 10:14 Dose: 17 gm Risperidone (Risperdal Tab) 2 mg PO BID [facility] Last Admin: 09/02/17 10:13 Dose: 2 mg Trazodone HCl (Desyrel) 50 mg PO [facility] Last Admin: 09/01/17 22:30 Dose: 50 mg Zolpidem Tartrate (Ambien) 5 mg PO [facility] Last Admin: 09/01/17 22:30 Dose: 5 mg Results - Vital Signs Recent Vital Signs: Last Vital Signs Temp 97.5 F L 09/02/17 08:51 Pulse 85 09/02/17 08:51 Resp 20 09/02/17 08:51 BP 168/110 H 09/02/17 08:51 Pulse Ox 97 09/02/17 08:51 - Labs Result Diagrams: 09/01/17 13:30 09/01/17 13:30 Labs: Laboratory Results - last 24 hr 09/01/17 09/01/17 09/01/17 13:30 13:30 13:30 WBC 4.8 RBC 4.30 Hgb 10.8 L Hct 33.0 L MCV 76.7 L MCH 25.2 L MCHC 32.9 L RDW 17.8 H Plt Count 118 L D MPV 8.4 Neut % (Auto) 73.1 Lymph % (Auto) 20.0 [place] % (Auto) 5.8 Eos % (Auto) 0.6 Baso % (Auto) 0.5 Neut # (Auto) 3.5 Lymph # (Auto) 1.0 [place] # (Auto) 0.3 Eos # (Auto) 0.0 Baso # (Auto) 0.0 Differential Comment PT 12.3 H INR 1.1 APTT 43 H Sodium Potassium Chloride Carbon Dioxide Anion Gap BUN Creatinine Est GFR ( Amer) Est GFR (Non-Af Amer) Random Glucose Calcium Total Bilirubin AST ALT Alkaline Phosphatase Total Protein Albumin Globulin Albumin/Globulin Ratio Lipase Urine Color Straw Urine Clarity Clear Urine pH 6.0 Ur Specific [place] 1.003 Urine Protein Negative Urine Glucose (UA) Normal Urine Ketones Negative Urine Blood Negative Urine Nitrate Negative Urine Bilirubin Negative Urine Urobilinogen Normal Ur Leukocyte Esterase Neg Urine WBC (Auto) 1 Urine RBC (Auto) 1 Ur Squamous Epith Cells 4 Urine Bacteria Rare Urine Opiates Screen Urine Methadone Screen Ur Barbiturates Screen Ur Phencyclidine Scrn Ur Amphetamines Screen U Benzodiazepines Scrn U Oth Cocaine Metabols U Cannabinoids Screen 09/01/17 09/01/17 13:30 16:22 WBC RBC Hgb Hct MCV MCH MCHC RDW Plt Count MPV Neut % (Auto) Lymph % (Auto) [place] % (Auto) Eos % (Auto) Baso % (Auto) Neut # (Auto) Lymph # (Auto) [place] # (Auto) Eos # (Auto) Baso # (Auto) Differential Comment PT INR APTT Sodium 144 Potassium 3.4 L Chloride 106 Carbon Dioxide 26 Anion Gap 15 BUN 10 Creatinine 0.8 Est GFR ( Amer) > 60 Est GFR (Non-Af Amer) > 60 Random Glucose 67 Calcium 8.7 Total Bilirubin 0.3 AST 23 ALT 24 Alkaline Phosphatase 72 Total Protein 6.5 Albumin 3.6 Globulin 2.9 Albumin/Globulin Ratio 1.3 Lipase 81 Urine Color Urine Clarity Urine pH Ur Specific [place] Urine Protein Urine Glucose (UA) Urine Ketones Urine Blood Urine Nitrate Urine Bilirubin Urine Urobilinogen Ur Leukocyte Esterase Urine WBC (Auto) Urine RBC (Auto) Ur Squamous Epith Cells Urine Bacteria Urine Opiates Screen Negative Urine Methadone Screen Negative Ur Barbiturates Screen Negative Ur Phencyclidine Scrn Negative Ur Amphetamines Screen Negative U Benzodiazepines Scrn Negative U Oth Cocaine Metabols Negative U Cannabinoids Screen Negative Attending/Attestation - Attestation I have personally seen and examined this patient.: Yes I have fully participated in the care of the patient.: Yes I have reviewed all pertinent clinical information: Yes Notes (Text): 09/02/17 13:46 I have seen and examined patient with GI fellow. Agree with above documentation with the following additions. In brief, this is a 46 year old female with history of colon cancer metastatic to liver and lung on chemotherapy , substance abuse, bipolar disorder who presents to hospital with complaint of abdominal pain. She describes sudden onset sharp 10/10 intensity epigastric and RLQ pain that began 2 days ago. She admits to recent severe constipation without adequate bowel movement over the past 10 days. She denies nausea, vomiting, fever/chills, weight loss, rectal bleeding. She had a bowel movement yesterday, following this her abdominal pain subsided and she was able to tolerate full breakfast today without difficulty. She had a colonoscopy in 2017 which showed suboptimal bowel preparation, diverticular disease. Vital signs from today are normal. Substance abuse Bipolar disorder Obesity Stage IV colon cancer on chemotherapy Chronic constipation, likely opiate induced Abdominal pain, CT imaging reviewed by me showing hepatic metastatic lesions, no evidence of bowel obstruction - Diet as tolerated - Suggest aggressive management of constipation with enema use today, followed by daily stool softner and miralax therapy - Counseled patient on importance of increased PO water and fiber intake - Follow up oncology recommendations - Patient may benefit from elective outpatient colonoscopy given previous procedure with suboptimal bowel preparation - No clinical indication for antibiotic therapy, can likely discontinue - No further planned GI intervention, will sign off case. Please reconsult as necessary, thank you.
[2017-09-02] MEDS ORDERED: Home Med 1 UNIT (Solifenacin Succinate [Vesicare] 5 MG) PO SCH (10:00)
[2017-09-02] MEDS ORDERED: POLYETHYLENE GLYCOL 3350 17 GM/Dose PACKET PO SCH (10:00)
[2017-09-02] MEDS: Enoxaparin 40 mg Syringe SC SCH (10:13)
[2017-09-02] MEDS: POLYETHYLENE GLYCOL 3350 17 GM/Dose PACKET PO SCH ×2 (10:14→18:06)
[2017-09-02] MEDS: Ciprofloxacin 400mg/200ml D5W 400 MG/200 ML BAG IVPB SCH (12:00)
[2017-09-02] MEDS: oxyCODONE 5 mg Immediate Release Tab PO PRN (16:07)
[2017-09-02] MEDS ORDERED: Bisacodyl 5mg EC Tab PO ONE (17:30)
--- NOTE | 2017-09-02 20:54 | CP.PCM.HP ---
Past Patient History - Infectious Disease Hx of Infectious Diseases: None - Past Medical History & Family History Past Medical History?: Yes - Past Social History Smoking Status: Former Smoker - CARDIAC Hx Hypertension: Yes - PULMONARY Hx Asthma: Yes - NEUROLOGICAL Hx Neurological Disorder: No - HEENT Hx HEENT Problems: No - RENAL Hx Chronic Kidney Disease: No - ENDOCRINE/METABOLIC Hx Endocrine Disorders: No - HEMATOLOGICAL/ONCOLOGICAL Hx Anemia: Yes - INTEGUMENTARY Hx Dermatological Problems: No - MUSCULOSKELETAL/RHEUMATOLOGICAL Hx Arthritis: Yes (osteoarthritis) Hx Rheumatoid Arthritis: Yes - GASTROINTESTINAL Hx Gastrointestinal Disorders: Yes Hx Bowel Surgery: Yes Other/Comment: COLON CANCER STAGE 4 WITH CHEMOTHERAPY, last chemo was august 26 2017. R side port a cath - GENITOURINARY/GYNECOLOGICAL Hx Genitourinary Disorders: No - PSYCHIATRIC Hx Anxiety: Yes Hx Bipolar Disorder: Yes Hx Depression: Yes Hx Schizophrenia: Yes Hx Substance Use: Yes - SURGICAL HISTORY Hx Surgeries: Yes (SEE COMMENT) Hx Orthopedic Surgery: Yes (left knee TKR 03/2017) Hx Tubal Ligation: Yes (2005) Hx Vascular Access Device: Yes (RIGHT SUBCLAVIAN 2014) Other/Comment: colon cancer surgery april 2014 to remove tumor, rt side subclavian Port - ANESTHESIA Hx Anesthesia: Yes Hx Anesthesia Reactions: No Hx Malignant Hyperthermia: No Has any member of the family had a problem w/ anesthesia?: No Meds Allergies/Adverse Reactions: Allergies Allergy/AdvReac Type Severity Reaction Status Date / Time No Known Allergies Allergy Verified 07/31/17 12:48 Physical Exam - Constitutional Appears: Well - Head Exam Head Exam: ATRAUMATIC, NORMAL INSPECTION, NORMOCEPHALIC - Eye Exam Eye Exam: EOMI, Normal appearance, PERRL Pupil Exam: NORMAL ACCOMODATION, PERRL - ENT Exam ENT Exam: Mucous Membranes Moist, Normal Exam - Neck Exam Neck exam: Positive for: Normal Inspection - Respiratory Exam Respiratory Exam: Decreased Breath Sounds - Cardiovascular Exam Cardiovascular Exam: REGULAR RHYTHM, +S1, +S2 - GI/Abdominal Exam GI & Abdominal Exam: Diminished Bowel Sounds, Soft - Rectal Exam Rectal Exam: Deferred Results - Vital Signs Recent Vital Signs: Last Vital Signs Temp 97.9 F 09/02/17 15:00 Pulse 90 09/02/17 18:05 Resp 20 09/02/17 15:00 BP 150/80 09/02/17 18:05 Pulse Ox 99 09/02/17 16:00 - Labs Result Diagrams: 09/01/17 13:30 09/01/17 13:30
[2017-09-02] MEDS: Magnesium Hydroxide Susp 30 ml UD PO SCH (21:41)
[2017-09-03] MEDS: oxyCODONE 5 mg Immediate Release Tab PO PRN ×2 (05:22→17:41)
[2017-09-03] MEDS: Enoxaparin 40 mg Syringe SC SCH (09:34)
[2017-09-03] MEDS: POLYETHYLENE GLYCOL 3350 17 GM/Dose PACKET PO SCH ×2 (09:34→17:36)
--- NOTE | 2017-09-03 11:12 | CP.PCM.PN ---
Subjective - Date & Time of Evaluation Date of Evaluation: 09/03/17 Time of Evaluation: 07:30 - Subjective Subjective: clinically same Objective - Vital Signs/Intake and Output Vital Signs (last 24 hours): Temp Pulse Resp BP Pulse Ox 98.1 F 85 20 149/90 96 09/03/17 08:00 09/03/17 08:00 09/03/17 08:00 09/03/17 08:00 09/03/17 08:00 Intake and Output: 09/03/17 09/03/17 06:59 18:59 Intake Total 400 Balance 400 - Medications Medications: Current Medications Amlodipine Besylate (Norvasc) 10 mg PO DAILY [facility] Last Admin: 09/03/17 09:29 Dose: 10 mg Aspirin (Aspirin) 325 mg PO DAILY [facility] Last Admin: 09/03/17 09:29 Dose: 325 mg Clonazepam (Klonopin) 2 mg PO TID [facility] Last Admin: 09/03/17 09:30 Dose: 2 mg Docusate Sodium (Colace) 100 mg PO DAILY [facility] Last Admin: 09/03/17 09:29 Dose: 100 mg Duloxetine HCl (Cymbalta) 60 mg PO DAILY [facility] Last Admin: 09/03/17 09:29 Dose: 60 mg Enoxaparin Sodium (Lovenox) 40 mg SC DAILY [facility] Last Admin: 09/03/17 09:34 Dose: 40 mg Escitalopram Oxalate (Lexapro) 20 mg PO DAILY [facility] Last Admin: 09/03/17 09:29 Dose: 20 mg Home Med (Solifenacin Succinate [Vesicare]) 5 mg PO DAILY [facility] Ibuprofen (Motrin Tab) 800 mg PO Q6 PRN PRN Reason: PAIN, MILD 1-3 Magnesium Hydroxide (Milk Of Magnesia) 30 ml PO HS [facility] Last Admin: 09/02/17 21:41 Dose: 30 ml Oxycodone HCl (Oxycodone Immediate Release Tab) 15 mg PO Q3H PRN PRN Reason: SEVERE PAIN 8-10 Last Admin: 09/03/17 05:22 Dose: 15 mg Oxycodone/Acetaminophen (Percocet 5/325 Mg Tab) 1 tab PO Q6H PRN PRN Reason: Pain, moderate (4-7) Stop: 09/04/17 20:47 Polyethylene Glycol (Miralax) 17 gm PO BID [facility] Last Admin: 09/03/17 09:34 Dose: 17 gm Risperidone (Risperdal Tab) 2 mg PO BID [facility] Last Admin: 09/03/17 09:29 Dose: 2 mg Trazodone HCl (Desyrel) 50 mg PO HS [facility] Last Admin: 09/02/17 21:41 Dose: 50 mg Zolpidem Tartrate (Ambien) 5 mg PO HS [facility] Last Admin: 09/02/17 21:44 Dose: 5 mg - Labs Labs: 09/01/17 13:30 09/01/17 13:30 PT 12.3 SECONDS (9.7-12.2) H 09/01/17 13:30 INR 1.1 09/01/17 13:30 APTT 43 SECONDS (21-34) H 09/01/17 13:30 - Constitutional Appears: Well - Head Exam Head Exam: ATRAUMATIC, NORMAL INSPECTION, NORMOCEPHALIC - Eye Exam Eye Exam: EOMI, Normal appearance, PERRL Pupil Exam: NORMAL ACCOMODATION, PERRL - ENT Exam ENT Exam: Mucous Membranes Moist, Normal Exam - Neck Exam Neck Exam: Full ROM, Normal Inspection. absent: Lymphadenopathy - Respiratory Exam Respiratory Exam: Decreased Breath Sounds - Cardiovascular Exam Cardiovascular Exam: REGULAR RHYTHM, +S1, +S2 - GI/Abdominal Exam GI & Abdominal Exam: Soft, Diminished Bowel Sounds - Rectal Exam Rectal Exam: Deferred Assessment and Plan - Assessment and Plan (Free Text) Plan: Status post potassium supplementation Abdominal pain is better Patient seen by oncologist To be followed by oncology GI consult with Dr. Mcfarlane note Continue oxycodone Continue on zolpidem Continue as ordered manuel bray
[2017-09-03] MEDS: Oxycodone/Acetaminophen 5/325 mg Tab PO PRN (11:46)
--- NOTE | 2017-09-03 18:30 | CP.PCM.CON ---
History of Present Illness - History of Present Illness History of Present Illness: Ms. Hsieh is a 46 year old female with history of depression, and stage IV colon cancer with liver and lung metastasis dx in 05/2014, admitted with abdominal pain. Her chemotherapy had been on hold for several months due to orthopedic surgery, complicated by infection. She was found to have a lung mass during a past admission for chest pain. A percutaneous biopsy was consistent with colon primary metastasis. She is scheduled to restart chemotherapy as an outpatient. Past medical history: depression, anemia. Past surgical history: Knee surgery, portacatheter placement and removal Family history: Denies hematologic and oncologic problems Social history: Denies tobacco, alcohol, and illicit drug use. Allergies: NKA Review of systems: All remaining review of systems including HEENT, cardiovascular, respiratory, gastrointestinal, genitourinary, musculoskeletal, dermatologic, psychiatric, neurologic are negative unless mentioned in the history of present illness. Past Patient History - Infectious Disease Hx of Infectious Diseases: None - Past Medical History & Family History Past Medical History?: Yes - Past Social History Smoking Status: Former Smoker - CARDIAC Hx Hypertension: Yes - PULMONARY Hx Asthma: Yes - NEUROLOGICAL Hx Neurological Disorder: No - HEENT Hx HEENT Problems: No - RENAL Hx Chronic Kidney Disease: No - ENDOCRINE/METABOLIC Hx Endocrine Disorders: No - HEMATOLOGICAL/ONCOLOGICAL Hx Anemia: Yes - INTEGUMENTARY Hx Dermatological Problems: No - MUSCULOSKELETAL/RHEUMATOLOGICAL Hx Arthritis: Yes (osteoarthritis) Hx Rheumatoid Arthritis: Yes - GASTROINTESTINAL Hx Gastrointestinal Disorders: Yes Hx Bowel Surgery: Yes Other/Comment: COLON CANCER STAGE 4 WITH CHEMOTHERAPY, last chemo was august 26 2017. R side port a cath - GENITOURINARY/GYNECOLOGICAL Hx Genitourinary Disorders: No - PSYCHIATRIC Hx Anxiety: Yes Hx Bipolar Disorder: Yes Hx Depression: Yes Hx Schizophrenia: Yes Hx Substance Use: Yes - SURGICAL HISTORY Hx Surgeries: Yes (SEE COMMENT) Hx Orthopedic Surgery: Yes (left knee TKR 03/2017) Hx Tubal Ligation: Yes (2005) Hx Vascular Access Device: Yes (RIGHT SUBCLAVIAN 2014) Other/Comment: colon cancer surgery april 2014 to remove tumor, rt side subclavian Port - ANESTHESIA Hx Anesthesia: Yes Hx Anesthesia Reactions: No Hx Malignant Hyperthermia: No Has any member of the family had a problem w/ anesthesia?: No Meds Allergies/Adverse Reactions: Allergies Allergy/AdvReac Type Severity Reaction Status Date / Time No Known Allergies Allergy Verified 07/31/17 12:48 - Medications Medications: Current Medications Amlodipine Besylate (Norvasc) 10 mg PO DAILY [facility] Last Admin: 09/03/17 09:29 Dose: 10 mg Aspirin (Aspirin) 325 mg PO DAILY [facility] Last Admin: 09/03/17 09:29 Dose: 325 mg Clonazepam (Klonopin) 2 mg PO TID [facility] Last Admin: 09/03/17 17:40 Dose: 2 mg Docusate Sodium (Colace) 100 mg PO DAILY [facility] Last Admin: 09/03/17 09:29 Dose: 100 mg Duloxetine HCl (Cymbalta) 60 mg PO DAILY [facility] Last Admin: 09/03/17 09:29 Dose: 60 mg Enoxaparin Sodium (Lovenox) 40 mg SC DAILY [facility] Last Admin: 09/03/17 09:34 Dose: 40 mg Escitalopram Oxalate (Lexapro) 20 mg PO DAILY [facility] Last Admin: 09/03/17 09:29 Dose: 20 mg Home Med (Solifenacin Succinate [Vesicare]) 5 mg PO DAILY [facility] Ibuprofen (Motrin Tab) 800 mg PO Q6 PRN PRN Reason: PAIN, MILD 1-3 Magnesium Hydroxide (Milk Of Magnesia) 30 ml PO HS [facility] Last Admin: 09/02/17 21:41 Dose: 30 ml Oxycodone HCl (Oxycodone Immediate Release Tab) 15 mg PO Q3H PRN PRN Reason: SEVERE PAIN 8-10 Last Admin: 09/03/17 17:41 Dose: 15 mg Oxycodone/Acetaminophen (Percocet 5/325 Mg Tab) 1 tab PO Q6H PRN PRN Reason: Pain, moderate (4-7) Stop: 09/04/17 20:47 Last Admin: 09/03/17 11:46 Dose: 1 tab Polyethylene Glycol (Miralax) 17 gm PO BID [facility] Last Admin: 09/03/17 17:36 Dose: 17 gm Risperidone (Risperdal Tab) 2 mg PO BID [facility] Last Admin: 09/03/17 17:36 Dose: 2 mg Trazodone HCl (Desyrel) 50 mg PO [facility] Last Admin: 09/02/17 21:41 Dose: 50 mg Zolpidem Tartrate (Ambien) 5 mg PO HS [facility] Last Admin: 09/02/17 21:44 Dose: 5 mg Physical Exam - Head Exam Head Exam: ATRAUMATIC - Eye Exam Eye Exam: Normal appearance - ENT Exam ENT Exam: Mucous Membranes Dry - Respiratory Exam Respiratory Exam: NORMAL BREATHING PATTERN - Cardiovascular Exam Cardiovascular Exam: +S1, +S2 - GI/Abdominal Exam GI & Abdominal Exam: Normal Bowel Sounds - Extremities Exam Extremities exam: Positive for: pedal edema Results - Vital Signs Recent Vital Signs: Last Vital Signs Temp 97.5 F L 09/03/17 15:10 Pulse 81 09/03/17 15:10 Resp 20 09/03/17 15:10 BP 133/84 09/03/17 15:10 Pulse Ox 97 09/03/17 16:00 - Labs Result Diagrams: 09/04/17 15:15 09/04/17 15:15 Labs: Laboratory Results - last 24 hr 09/02/17 21:14 POC Glucose (mg/dL) 90 Assessment & Plan (1) Anemia Assessment and Plan: chronic disease from malignancy Status: Acute (2) Thrombocytopenia Assessment and Plan: suspect alcohol induced vs psych medication mild Status: Acute (3) Colon cancer Assessment and Plan: lung and liver metastasis outpatient chemotherapy. Thank you for this interesting consult. Status: Acute
[2017-09-03] MEDS: Magnesium Hydroxide Susp 30 ml UD PO SCH (21:31)
[2017-09-04] MEDS: oxyCODONE 5 mg Immediate Release Tab PO PRN (04:08)
[2017-09-04] MEDS: POLYETHYLENE GLYCOL 3350 17 GM/Dose PACKET PO SCH ×2 (09:40→17:36)
[2017-09-04] MEDS: Enoxaparin 40 mg Syringe SC SCH (09:41)
[2017-09-04] MEDS: Oxycodone/Acetaminophen 5/325 mg Tab PO PRN (11:56)
--- NOTE | 2017-09-04 13:10 | PCM.FALL ---
Post Fall Progress Note - Post Fall Fall Date: 09/04/17 Fall Time: 12:39 Description of Fall: Code shreyas was called at 1239 for patient after she was found on the floor of the bathroom. She states that she felt lightheaded, dizzy, her legs felt weak when she was trying to brush her teeth. Denies losing consciousness. Unclear if she hit her head. States she landed on her buttocks. Complains of left knee pain , low back pain and pain on her right lower ribs. Initial vitals VS 97.4 BP 169/110 91 RR 16 HR 94% RA - Post Fall Exam Vital Sign: Temp Pulse Resp BP Pulse Ox 98.5 F 100 H 20 109/67 96 09/04/17 08:00 09/04/17 08:00 09/04/17 08:00 09/04/17 08:00 09/04/17 08:00 Skull Exam: Negative for: Scalp wound, Scalp hematoma, Scalp depression, Ridge in skull Eye Exam: Positive for: Pupils equal, Pupils reactive Ear Exam: Negative for: Discharge, Bleeding Nose Exam: Negative for: Discharge, Bleeding Skin Exam: Negative for: Colour, Lacerations, Grazes, Bruising Mouth Exam: Negative for: Tongue bitten, Teeth dislodge Neck Exam: Positive for: Tenderness (chronic neck pain, hx of herniated disk). Negative for: Tingling, Weakness Spinal Exam: Positive for: Tenderness (lumbar spine). Negative for: Tingling, Weakness Chest Exam: Positive for: Tenderness in ribs (right lower ribs). Negative for: Difficulty breathing, Tenderness in collar bones Abdomen Exam: Negative for: Tenderness Pelvic Exam: Negative for: Tenderness Arm Exam: Negative for: Deformity, Alteration in range of movement Leg Exam: Positive for: Alteration in range of movement (Pain with flexion of left knee. no abrasions noted. surgical scar to left knee). Negative for: Deformity Impression/Plan: S/p fall * Alert and oriented x3 * Good strength of upper and lower extremities * Repeat vital signs: Temp 97.4 BP 132/85 RR 16 HR 91 O2 sat 94% RA * CBC, CMP, Mag, Phosphorous ordered * CT head, left knee, right ribs, lumbar spine ordered. [facility]
--- NOTE | 2017-09-04 14:14 | CT ---
Date of service: 09/04/2017 PROCEDURE: CT HEAD WITHOUT CONTRAST. HISTORY: code shreyas unwitnessed fall COMPARISON: 02/27/2016. TECHNIQUE: Axial computed tomography images were obtained through the head/brain without intravenous contrast. Radiation dose: Total exam DLP = 982.82 mGy-cm. This CT exam was performed using one or more of the following dose reduction techniques: Automated exposure control, adjustment of the mA and/or kV according to patient size, and/or use of iterative reconstruction technique. FINDINGS: HEMORRHAGE: No intracranial hemorrhage. BRAIN: Waldrop-white matter differentiation is preserved. There is no mass, mass effect or abnormal extra-axial fluid collection. There is no territorial infarction. VENTRICLES: There is mild age- advanced global parenchymal volume loss and proportionate enlargement of the ventricles and cortical sulci. CALVARIUM: There is no calvarial fracture or extracranial soft tissue swelling. PARANASAL SINUSES: Predominantly clear. MASTOID AIR CELLS: Predominantly clear P OTHER FINDINGS: None. IMPRESSION: No acute intracranial abnormality. Mild global parenchymal volume loss, advanced for the patient's age.
--- NOTE | 2017-09-04 14:39 | RAD ---
Date of service: 09/04/2017 PROCEDURE: Left Knee Radiographs. HISTORY: Pain. COMPARISON: Left knee radiographs dated 05/02/2017. FINDINGS: BONES: Prior total knee arthroplasty. No periprosthetic lucency. JOINTS: Prior total knee arthroplasty. JOINT EFFUSION: None. OTHER FINDINGS: None. IMPRESSION: Prior total knee arthroplasty. No periprosthetic lucency to suggest component loosening or fracture.
--- NOTE | 2017-09-04 14:40 | RAD ---
Date of service: 09/04/2017 PROCEDURE: Radiographs of the Lumbar Spine. HISTORY: code star COMPARISON: CT scan of the abdomen pelvis dated 09/01/2017. FINDINGS: BONES: Normal alignment. No listhesis. No fracture. DISC SPACES: Mild L5-S1 disc space narrowing. OTHER FINDINGS: None. IMPRESSION: No acute fracture. Mild L5-S1 disc space narrowing.
--- NOTE | 2017-09-04 14:41 | RAD ---
Date of service: 09/04/2017 PROCEDURE: Radiographs of the Chest and Right Ribs. HISTORY: code star COMPARISON: Chest radiograph dated 08/19/2017. TECHNIQUE: Frontal radiograph of the chest and multiple oblique radiographs of the right ribs were obtained. FINDINGS: RIGHT RIBS: No fracture or focal lesion visualized. LUNGS: Clear. PLEURA: No pneumothorax or pleural fluid. CARDIOVASCULAR: Normal sized heart. No pulmonary vascular congestion. OTHER FINDINGS: Right subclavian access chest port, unchanged. IMPRESSION: Unremarkable radiographs of the chest and right ribs. No right rib fracture.
[2017-09-04 15:20] LABS: BASO % 0.4 % (0.0-2.0); EOS # 0.1 K/uL (0.0-0.7); HEMOGLOBIN 10.5 g/dL (11.0-16.0); LYMPH % 20.2 % (20.0-40.0); MEAN CELL VOLUME 76.3 fL (81.0-99.0); MEAN CORPUSCULAR HEMOGLOBIN 25.1 pg (27.0-31.0); MEAN CORPUSCULAR HGB CONC 32.9 g/dL (33.0-37.0); MEAN PLATELET VOLUME 8.5 fL (7.2-11.7); MONO # 0.4 K/uL (0.0-0.8); MONO % 7.6 % (0.0-10.0); NEUT # 3.6 K/uL (1.8-7.0); NEUT % 70.8 % (50.0-75.0); RBC 4.18 Mil/uL (3.80-5.20); RED CELL DISTRIBUTION WIDTH 18.2 % (11.5-14.5)
[2017-09-04 15:39] LABS: ALB/GLOB RATIO 1.3 (1.0-2.1); ALBUMIN 3.6 g/dL (3.5-5.0); ALT/SGPT 24 U/L (9-52); AST/SGOT 27 U/L (14-36); BLOOD UREA NITROGEN 12 mg/dL (7-17); CALCIUM 8.5 mg/dl (8.6-10.4); GFR AFRICAN-AMERICAN > 60; GFR NON-AFRICAN AMERICAN > 60
[2017-09-04 16:29] VITALS: BP 104/69; PULSE 88; TEMP 97; O2SAT 93
--- NOTE | 2017-09-04 17:17 | CP.PCM.PN ---
Subjective - Date & Time of Evaluation Date of Evaluation: 09/04/17 Time of Evaluation: 17:18 - Subjective Subjective: Alert, awake, ambulatory, no acute distress. Objective - Vital Signs/Intake and Output Vital Signs (last 24 hours): Temp Pulse Resp BP Pulse Ox 97 F L 88 20 104/69 93 L 09/04/17 16:00 09/04/17 16:00 09/04/17 16:00 09/04/17 16:00 09/04/17 16:00 Intake and Output: 09/04/17 09/04/17 06:59 18:59 Intake Total 300 Balance 300 - Medications Medications: Current Medications Amlodipine Besylate (Norvasc) 10 mg PO DAILY [facility] Last Admin: 09/04/17 09:40 Dose: 10 mg Aspirin (Aspirin) 325 mg PO DAILY [facility] Last Admin: 09/04/17 09:40 Dose: 325 mg Clonazepam (Klonopin) 2 mg PO TID [facility] Last Admin: 09/04/17 14:51 Dose: 2 mg Docusate Sodium (Colace) 100 mg PO DAILY [facility] Last Admin: 09/04/17 09:41 Dose: 100 mg Duloxetine HCl (Cymbalta) 60 mg PO DAILY [facility] Last Admin: 09/04/17 09:40 Dose: 60 mg Enoxaparin Sodium (Lovenox) 40 mg SC DAILY [facility] Last Admin: 09/04/17 09:41 Dose: 40 mg Escitalopram Oxalate (Lexapro) 20 mg PO DAILY [facility] Last Admin: 09/04/17 09:43 Dose: 20 mg Home Med (Solifenacin Succinate [Vesicare]) 5 mg PO DAILY [facility] Ibuprofen (Motrin Tab) 800 mg PO Q6 PRN PRN Reason: PAIN, MILD 1-3 Magnesium Hydroxide (Milk Of Magnesia) 30 ml PO HS [facility] Last Admin: 09/03/17 21:31 Dose: 30 ml Oxycodone HCl (Oxycodone Immediate Release Tab) 15 mg PO Q3H PRN PRN Reason: SEVERE PAIN 8-10 Last Admin: 09/04/17 04:08 Dose: 15 mg Oxycodone/Acetaminophen (Percocet 5/325 Mg Tab) 1 tab PO Q6H PRN PRN Reason: Pain, moderate (4-7) Stop: 09/04/17 20:47 Last Admin: 09/04/17 11:56 Dose: 1 tab Polyethylene Glycol (Miralax) 17 gm PO BID [facility] Last Admin: 09/04/17 09:40 Dose: 17 gm Risperidone (Risperdal Tab) 2 mg PO BID [facility] Last Admin: 09/04/17 09:43 Dose: 2 mg Trazodone HCl (Desyrel) 50 mg PO [facility] Last Admin: 09/03/17 21:33 Dose: 50 mg Zolpidem Tartrate (Ambien) 5 mg PO [facility] Last Admin: 09/03/17 21:34 Dose: 5 mg - Labs Labs: 09/04/17 15:15 09/04/17 15:15 PT 12.3 SECONDS (9.7-12.2) H 09/01/17 13:30 INR 1.1 09/01/17 13:30 APTT 43 SECONDS (21-34) H 09/01/17 13:30 Assessment and Plan - Assessment and Plan (Free Text) Assessment: Patient admitted with abdominal pain, constipation, seen and examined. Had afall today in the bathroom, no injuries noted, xrays negative. Patient denies pain. Discussed with DR Tila Harris plan to discharge home today. To be followed up by DR Heath in the office for chemotherapy. Transportation arranged by the shoe parts caser.
--- NOTE | 2017-09-05 18:06 | CP.PCM.PN ---
Subjective - Date & Time of Evaluation Date of Evaluation: 09/04/17 Time of Evaluation: 14:00 - Subjective Subjective: Feel in the bathroom, hit buttocks. Objective - Vital Signs/Intake and Output Vital Signs (last 24 hours): Temp Pulse Resp BP Pulse Ox 97 F L 88 20 104/69 93 L 09/04/17 16:00 09/04/17 16:00 09/04/17 16:00 09/04/17 16:00 09/04/17 16:00 - Labs Labs: 09/04/17 15:15 09/04/17 15:15 PT 12.3 SECONDS (9.7-12.2) H 09/01/17 13:30 INR 1.1 09/01/17 13:30 APTT 43 SECONDS (21-34) H 09/01/17 13:30 - Head Exam Head Exam: ATRAUMATIC - Eye Exam Eye Exam: Normal appearance - ENT Exam ENT Exam: Mucous Membranes Dry - Respiratory Exam Respiratory Exam: NORMAL BREATHING PATTERN - Cardiovascular Exam Cardiovascular Exam: +S1, +S2 - GI/Abdominal Exam GI & Abdominal Exam: Normal Bowel Sounds Assessment and Plan (1) Anemia Assessment & Plan: chronic disease Status: Acute (2) Thrombocytopenia Assessment & Plan: suspect psych meds vs. alcohol mild Status: Acute (3) Colon cancer Assessment & Plan: stage IV lung and liver metastasis outpatient treatment. Status: Acute
== END 2017-09-04 18:13 | disposition home or self-care (01) ==
LOC: C.ER 12:49 → C.9E 16:05 → C.3T 16:28
PROVIDERS: ADMIT Internal Medicine Nephrology; ATTEND Internal Medicine Nephrology
DX: K59.09 Other constipation (principal); T40.605A Adverse effect of unspecified narcotics, initial encounter; C78.7 Secondary malignant neoplasm of liver and intrahepatic bile duct; C78.00 Secondary malignant neoplasm of unspecified lung; Z85.038 Personal history of other malignant neoplasm of large intestine; Z90.49 Acquired absence of other specified parts of digestive tract; I10 Essential (primary) hypertension; D50.9 Iron deficiency anemia, unspecified; D69.6 Thrombocytopenia, unspecified; K57.90 Diverticulosis of intestine, part unspecified, without perforation or abscess without bleeding; K64.9 Unspecified hemorrhoids; J45.909 Unspecified asthma, uncomplicated; F31.9 Bipolar disorder, unspecified; F20.9 Schizophrenia, unspecified; M06.9 Rheumatoid arthritis, unspecified; E66.9 Obesity, unspecified; W18.30XA Fall on same level, unspecified, initial encounter; Y92.231 Patient bathroom in hospital as the place of occurrence of the external cause; Z87.891 Personal history of nicotine dependence; Z98.51 Tubal ligation status
CPT/HCPCS: 36415; 70450; 71101; 72114; 73562; 74177; 80053; 80324; 80345; 80346; 80349; 80353; 80358; 80361; 81001; 82948; 83690; 83735; 83992; 84100; 85025; 85610; 85730; 96374; 99285; G0378; J0744; J1642; J1650; J2270; J7030; Q9967

== ENCOUNTER 2017-09-13 13:31 | Inpatient (IN) | payer MEDICARE ==
[2017-09-13 13:39] VITALS: BMI 38.8
--- NOTE | 2017-09-13 14:19 | C.PDOC ---
History Of Present Illness 46 y/o female presents to the ED complaining of right-sided sharp chest pain radiating down the right arm since earlier today. Chest pain is associated with mild shortness of breath. Patient has history of metastatic colon CA. She admits to come nausea currently, but denies vomiting, diarrhea, dysuria, fever, or other complaints. Time Seen by Provider: 09/13/17 14:04 Chief Complaint (Nursing): Chest Pain History Per: Patient History/Exam Limitations: no limitations Onset/Duration Of Symptoms: Hrs Current Symptoms Are (Timing): Still Present Severity: Moderate Quality: Sharp Associated Symptoms: Nausea Past Medical History Reviewed: Historical Data, Nursing Documentation, Vital Signs Vital Signs: Last Vital Signs Temp 98 F 09/17/17 07:30 Pulse 91 H 09/17/17 07:30 Resp 20 09/17/17 07:30 BP 119/84 09/17/17 07:30 Pulse Ox 97 09/17/17 07:30 - Medical History PMH: Anemia, Anxiety, Arthritis (osteoarthritis), Asthma, Back Problems, Bipolar Disorder, Depression, HTN, Malignancy (Colon), Rheumatoid Arthritis, Schizophrenia Other Surgeries: Left knee surgery, tubal ligation, colon surgary for tumor removal, right subclavian port placement - [facility] Procedures CLOSED ENDOSCOPIC BIOPSY OF LARGE INTESTINE (05/23/14) COLONOSCOPY (08/12/14) DX ULTRASOUND-ABDOMEN (05/23/14) INSERTION OF TOTALLY IMPLANTABLE VASC ACCESS DEVIC (05/23/14) LAPAROSCOP LYSIS-PERITONEAL ADHES (05/23/14) LAPAROSCOPIC SIGMOIDECTOMY (05/23/14) OTHER ENDOSCOPY OF SM INTEST (05/23/14) PACKED CELL TRANSFUSION (05/23/14) PERCUTAN NEEDLE BX OF LIVER (05/23/14) REMOVAL OF VAD FROM TRUNK SUBCU/FASCIA, PERC APPROACH (03/16/15) Family History: States: No Known Family Hx - Social History Hx Tobacco Use: No Hx Alcohol Use: No Hx Substance Use: No - Immunization History Hx Tetanus Toxoid Vaccination: No Hx Influenza Vaccination: Yes Hx Pneumococcal Vaccination: No Review Of Systems Constitutional: Negative for: Fever, Chills Cardiovascular: Positive for: Chest Pain. Negative for: Palpitations Respiratory: Positive for: Shortness of Breath. Negative for: Cough Gastrointestinal: Positive for: Nausea. Negative for: Vomiting, Abdominal Pain , Diarrhea Genitourinary: Negative for: Dysuria, Hematuria Musculoskeletal: Positive for: Arm Pain Skin: Negative for: Rash Physical Exam - Physical Exam Appears: Well, Non-toxic, No Acute Distress, Other (bizarre affect ) Skin: Normal Color, Warm, Dry, No Rash Head: Normacephalic Eye(s): bilateral: Normal Inspection Oral Mucosa: Moist Neck: Supple Cardiovascular: Rhythm Regular Respiratory: Normal Breath Sounds, No Rales, No Rhonchi, No Wheezing Gastrointestinal/Abdominal: Normal Exam, Bowel Sounds, Soft, No Tenderness Back: Normal Inspection, No CVA Tenderness Extremity: Normal ROM, No Pedal Edema, No Calf Tenderness Extremity: Bilateral: Atraumatic, No Pedal Edema, Normal ROM Pulses: Left Radial: Normal, Right Radial: Normal Neurological/Psych: Oriented x3 ED Course And Treatment - Laboratory Results Result Diagrams: 09/13/17 14:28 09/13/17 14:28 ECG: Interpreted By Me, Viewed By Me ECG Rhythm: Sinus Rhythm ECG Interpretation: No Acute Changes Interpretation Of ECG: left axis deviation, no acute ST/T wave changes Rate From EC (bpm) O2 Sat by Pulse Oximetry: 97 (RA) Pulse Ox Interpretation: Normal - CT Scan/US CT Chest w/ contrast Other Rad Studies (CT/US): Read By Radiologist, Radiology Report Reviewed CT/US Interpretation: Accession No. : [id number]. Patient Name / ID : PELON CRUZ / [id number]. Exam Date : 09/13/2017 16:32:20 ( Approved ). Study Comment : Sex / Age : F / 46Y. Creator : Iesha Álvarez. Dictator : Juan Serna MD. [employer] Examiner : Maxillofacial Prosthetics Dentist : Juan Serna MD. Approver2 : Report Date : 09/13/2017 16:43:51. My Comment : . Date of service: 09/13/2017. PROCEDURE: CT Chest with contrast (Pulmonary Angiogram) . HISTORY: LEFT SIDED CP, MALIGNANCY, R/O PE. COMPARISON: None available. TECHNIQUE: Axial computed tomography images were obtained of the chest in the pulmonary arterial phase of enhancement. Coronal and sagittal reformatted images were created and reviewed. Intravenous contrast dose: 100 mL Visipaque 320. Radiation dose: Total exam DLP = 555.23 mGy-cm. This CT exam was performed using one or more of the following dose reduction techniques: Automated exposure control, adjustment of the mA and/or kV according to patient size, and/or use of iterative reconstruction technique. FINDINGS: PULMONARY ARTERIES: Unremarkable. No pulmonary embolism. AORTA: No acute findings. No thoracic aortic aneurysm. LUNGS: Stable 12 mm mass in the apical segment right upper lobe suspicious for neoplasm. No other pulmonary mass. No pulmonary infiltrate. PLEURAL SPACES: Unremarkable. No effusion or pneumothorax. HEART : Unremarkable. No cardiomegaly. No significant pericardial effusion. LYMPH NODES: No lymphadenopathy. BONES, CHEST WALL: Unremarkable. No fracture or destructive lesion. OTHER FINDINGS: Splenomegaly. The spleen measures 16.5 cm in greatest dimension. In retrospect, measuring in the transverse plane, the spleen measures 17.4 cm on prior examination. Significance uncertain. IMPRESSION: No evidence of pulmonary embolism. 12 mm mass in the right apex suspicious for neoplasm. Splenomegaly. No additional abnormality. Progress Note: Blood work, EKG, CTA chest ordered and reviewed. Patient given PO ASA, IV morphine, IV zofran. Reevaluation Time: 15:00 Reassessment Condition: Improved (Patient currently resting comfortably, in no distress.) - Physician Consult Information Time Consulting Physician Contacted: 15:13 Physician Contacted: Rosaura Harris Outcome Of Conversation: Patient discussed with PMD, agrees with admission for chest pain, dyspnea, r/o ACS. Disposition Counseled Patient/Family Regarding: Studies Performed, Diagnosis - Disposition Disposition: HOSPITALIZED Disposition Time: 15:13 Condition: STABLE - POA Core Measure Indicators: Chest Pain - Clinical Impression Clinical Impression: Colon cancer metastasized to liver - Scribe Statement The provider has reviewed the documentation as recorded by the Gloria Win Provider Attestation: All medical record entries made by the Gloria were at my direction and personally dictated by me. I have reviewed the chart and agree that the record accurately reflects my personal performance of the history, physical exam, medical decision making, and the department course for this patient. I have also personally directed, reviewed, and agree with the discharge instructions and disposition. Decision To Admit - Pt Status Changed To: Hospital Disposition Of: Inpatient - Admit Certification Admit to Inpatient:: After my assessment, the patient will require hospitalization for at least two midnights. This is because of the severity of symptoms shown, intensity of services needed, and/or the medical risk in this patient being treated as an outpatient. - InPatient: Physician Admission Certification: I certify that this patient requires 2 or more midnights of care for the following reason:: see notes - . Bed Request Type: Telemetry Admitting Physician: Rosaura Harris Patient Diagnosis: Chest pain, Colon cancer metastasized to liver
[2017-09-13 14:32] LABS: BASO % 0.8 % (0.0-2.0); EOS % 0.8 % (0.0-4.0); HEMOGLOBIN 11.8 g/dL (11.0-16.0); LYMPH # 0.8 K/uL (1.0-4.3); LYMPH % 16.7 % (20.0-40.0); MEAN CELL VOLUME 76.8 fL (81.0-99.0); MEAN CORPUSCULAR HEMOGLOBIN 25.2 pg (27.0-31.0); MEAN CORPUSCULAR HGB CONC 32.8 g/dL (33.0-37.0); MEAN PLATELET VOLUME 8.4 fL (7.2-11.7); MONO # 0.2 K/uL (0.0-0.8); NEUT # 3.8 K/uL (1.8-7.0); NEUT % 77.7 % (50.0-75.0); NRBC % 0.1 % (0.0-2.0); RBC 4.7 Mil/uL (3.80-5.20); WHITE BLOOD COUNT 4.9 K/uL (4.8-10.8)
[2017-09-13 14:39] LABS: INR 1.2; PROTHROMBIN TIME 12.6 SECONDS (9.7-12.2)
[2017-09-13 14:51] LABS: SQUAMOUS EPITHIAL 10 /hpf (0-5); URINE BACTERIA RARE (<OCC); URINE BILIRUBIN NEGATIVE (NEGATIVE); URINE BLOOD NEGATIVE (NEGATIVE); URINE CLARITY Hazy (Clear); URINE COLOR Yellow (YELLOW); URINE GLUCOSE (UA) NORMAL (Normal); URINE LEUKOCYTE ESTERASE NEG Leu/uL (Negative); URINE PROTEIN NEGATIVE (NEGATIVE); URINE UROBILINOGEN NORMAL mg/dL (0.2-1.0)
[2017-09-13 14:52] LABS: HCG,QUALITATIVE URINE NEGATIVE (NEGATIVE)
[2017-09-13 15:11] LABS: CK-MB 0.29 ng/mL (0.0-3.38)
[2017-09-13 15:12] LABS: ALB/GLOB RATIO 1.4 (1.0-2.1); ALBUMIN 4.3 g/dL (3.5-5.0); ALT/SGPT 26 U/L (9-52); AST/SGOT 27 U/L (14-36); BLOOD UREA NITROGEN 9 mg/dL (7-17); CALCIUM 9.1 mg/dl (8.6-10.4); GFR AFRICAN-AMERICAN > 60; GFR NON-AFRICAN AMERICAN > 60
[2017-09-13] MEDS ORDERED: Iodixanol 320 MG/ML 100 ML BOTTLE IV ONE (16:07)
--- NOTE | 2017-09-13 17:09 | CT ---
Date of service: 09/13/2017 PROCEDURE: CT Chest with contrast (Pulmonary Angiogram) HISTORY: LEFT SIDED CP, MALIGNANCY, R/O PE COMPARISON: None available. TECHNIQUE: Axial computed tomography images were obtained of the chest in the pulmonary arterial phase of enhancement. Coronal and sagittal reformatted images were created and reviewed. Intravenous contrast dose: 100 mL Visipaque 320 Radiation dose: Total exam DLP = 555.23 mGy-cm. This CT exam was performed using one or more of the following dose reduction techniques: Automated exposure control, adjustment of the mA and/or kV according to patient size, and/or use of iterative reconstruction technique. FINDINGS: PULMONARY ARTERIES: Unremarkable. No pulmonary embolism. AORTA: No acute findings. No thoracic aortic aneurysm. LUNGS: Stable 12 mm mass in the apical segment right upper lobe suspicious for neoplasm. No other pulmonary mass. No pulmonary infiltrate. PLEURAL SPACES: Unremarkable. No effusion or pneumothorax. HEART: Unremarkable. No cardiomegaly. No significant pericardial effusion. LYMPH NODES: No lymphadenopathy. BONES, CHEST WALL: Unremarkable. No fracture or destructive lesion OTHER FINDINGS: Splenomegaly. The spleen measures 16.5 cm in greatest dimension. In retrospect, measuring in the transverse plane, the spleen measures 17.4 cm on prior examination. Significance uncertain. IMPRESSION: No evidence of pulmonary embolism. 12 mm mass in the right apex suspicious for neoplasm. Splenomegaly. No additional abnormality.
[2017-09-13] MEDS ORDERED: Morphine 4 MG/ML VIAL IVP PRN (19:00)
[2017-09-13] MEDS: oxyCODONE 5 mg Immediate Release Tab PO PRN (20:16)
--- NOTE | 2017-09-13 20:59 | CP.PCM.HP ---
Past Patient History - Infectious Disease Hx of Infectious Diseases: None - Past Medical History & Family History Past Medical History?: Yes - Past Social History Smoking Status: Former Smoker - CARDIAC Hx Cardiac Disorders: Yes Hx Hypertension: Yes - PULMONARY Hx Respiratory Disorders: Yes Hx Asthma: Yes - NEUROLOGICAL Hx Neurological Disorder: No - HEENT Hx HEENT Problems: No - RENAL Hx Chronic Kidney Disease: No - ENDOCRINE/METABOLIC Hx Endocrine Disorders: No - HEMATOLOGICAL/ONCOLOGICAL Hx Blood Disorders: Yes Hx Anemia: Yes - INTEGUMENTARY Hx Dermatological Problems: No - MUSCULOSKELETAL/RHEUMATOLOGICAL Hx Musculoskeletal Disorders: Yes Hx Arthritis: Yes (osteoarthritis) Hx Falls: No Hx Rheumatoid Arthritis: Yes - GASTROINTESTINAL Hx Gastrointestinal Disorders: Yes Hx Bowel Surgery: Yes Other/Comment: COLON CANCER STAGE 4 WITH CHEMOTHERAPY, last chemo was august 26 2017. R side port a cath - GENITOURINARY/GYNECOLOGICAL Hx Genitourinary Disorders: No - PSYCHIATRIC Hx Psychophysiologic Disorder: Yes Hx Anxiety: Yes Hx Bipolar Disorder: Yes Hx Depression: Yes Hx Schizophrenia: Yes Hx Substance Use: No - SURGICAL HISTORY Hx Surgeries: Yes (SEE COMMENT) Hx Orthopedic Surgery: Yes (left knee TKR 03/2017) Hx Tubal Ligation: Yes (2005) Hx Vascular Access Device: Yes (RIGHT SUBCLAVIAN 2014) Other/Comment: colon cancer surgery april 2014 to remove tumor, rt side subclavian Port - ANESTHESIA Hx Anesthesia: Yes Hx Anesthesia Reactions: No Hx Malignant Hyperthermia: No Meds Allergies/Adverse Reactions: Allergies Allergy/AdvReac Type Severity Reaction Status Date / Time No Known Allergies Allergy Verified 09/13/17 13:37 Physical Exam - Constitutional Appears: Well - Head Exam Head Exam: ATRAUMATIC, NORMAL INSPECTION, NORMOCEPHALIC - Eye Exam Eye Exam: EOMI, Normal appearance, PERRL Pupil Exam: NORMAL ACCOMODATION, PERRL - ENT Exam ENT Exam: Mucous Membranes Moist, Normal Exam - Neck Exam Neck exam: Positive for: Normal Inspection - Respiratory Exam Respiratory Exam: Decreased Breath Sounds - Cardiovascular Exam Cardiovascular Exam: REGULAR RHYTHM, +S1, +S2 - GI/Abdominal Exam GI & Abdominal Exam: Diminished Bowel Sounds, Soft - Rectal Exam Rectal Exam: Deferred Results - Vital Signs Recent Vital Signs: Last Vital Signs Temp 97.4 F L 09/13/17 17:20 Pulse 74 09/13/17 17:20 Resp 20 09/13/17 17:20 BP 137/83 09/13/17 17:20 Pulse Ox 97 09/13/17 17:20 - Labs Result Diagrams: 09/13/17 14:28 09/13/17 14:28 Labs: Laboratory Results - last 24 hr 09/13/17 09/13/17 09/13/17 14:28 14:28 14:28 WBC 4.9 RBC 4.70 Hgb 11.8 Hct 36.1 MCV 76.8 L MCH 25.2 L MCHC 32.8 L RDW 18.0 H Plt Count 134 MPV 8.4 Neut % (Auto) 77.7 H Lymph % (Auto) 16.7 L [place] % (Auto) 4.0 Eos % (Auto) 0.8 Baso % (Auto) 0.8 Neut # (Auto) 3.8 Lymph # (Auto) 0.8 L [place] # (Auto) 0.2 Eos # (Auto) 0.0 Baso # (Auto) 0.0 PT 12.6 H INR 1.2 APTT 32 Sodium 140 Potassium 4.2 Chloride 102 Carbon Dioxide 28 Anion Gap 14 BUN 9 Creatinine 0.8 Est GFR ( Amer) > 60 Est GFR (Non-Af Amer) > 60 Random Glucose 92 Calcium 9.1 Total Bilirubin 0.6 AST 27 ALT 26 Alkaline Phosphatase 78 Total Creatine Kinase 46 CK-MB (Mass) 0.29 Troponin I < 0.0120 Total Protein 7.4 Albumin 4.3 Globulin 3.0 Albumin/Globulin Ratio 1.4 Urine Color Urine Clarity Urine pH Ur Specific [place] Urine Protein Urine Glucose (UA) Urine Ketones Urine Blood Urine Nitrate Urine Bilirubin Urine Urobilinogen Ur Leukocyte Esterase Urine WBC (Auto) Ur Squamous Epith Cells Urine Bacteria Urine HCG, Qual 09/13/17 14:36 WBC RBC Hgb Hct MCV MCH MCHC RDW Plt Count MPV Neut % (Auto) Lymph % (Auto) [place] % (Auto) Eos % (Auto) Baso % (Auto) Neut # (Auto) Lymph # (Auto) [place] # (Auto) Eos # (Auto) Baso # (Auto) PT INR APTT Sodium Potassium Chloride Carbon Dioxide Anion Gap BUN Creatinine Est GFR ( Amer) Est GFR (Non-Af Amer) Random Glucose Calcium Total Bilirubin AST ALT Alkaline Phosphatase Total Creatine Kinase CK-MB (Mass) Troponin I Total Protein Albumin Globulin Albumin/Globulin Ratio Urine Color Yellow Urine Clarity Hazy Urine pH 6.[address] [place] 1.013 Urine Protein Negative Urine Glucose (UA) Normal Urine Ketones Negative Urine Blood Negative Urine Nitrate Negative Urine Bilirubin Negative Urine Urobilinogen Normal Ur Leukocyte Esterase Neg Urine WBC (Auto) 2 Ur Squamous Epith Cells 10 H Urine Bacteria Rare Urine HCG, Qual Negative
[2017-09-13 22:24] LABS: CK-MB 0.27 ng/mL (0.0-3.38)
[2017-09-14] MEDS: oxyCODONE 5 mg Immediate Release Tab PO PRN ×3 (02:37→18:15)
[2017-09-14 07:47] LABS: CK-MB < 0.22 ng/mL (0.0-3.38)
[2017-09-14] MEDS: Enoxaparin 40 mg Syringe SC SCH (09:16)
[2017-09-14] MEDS: POLYETHYLENE GLYCOL 3350 17 GM/Dose PACKET PO SCH (09:16)
--- NOTE | 2017-09-14 09:21 | CP.PCM.CON ---
History of Present Illness - History of Present Illness History of Present Illness: CC: CHest pain HPI: 46 year old female with lung and liver mets from colon CA s/p left knee replacement in 03/2017. She is reporting on day onset of severe chest pain. Pain is located in the left chest. Occured in the context of liver pathology. Sharp in character. Now stable. Serial trop were drawn and are negative. Review of Systems - Review of Systems All systems: reviewed and no additional remarkable complaints except Past Patient History - Infectious Disease Hx of Infectious Diseases: None - Past Medical History & Family History Past Medical History?: Yes - Past Social History Smoking Status: Former Smoker - CARDIAC Hx Cardiac Disorders: Yes Hx Hypertension: Yes - PULMONARY Hx Respiratory Disorders: Yes Hx Asthma: Yes - NEUROLOGICAL Hx Neurological Disorder: No - HEENT Hx HEENT Problems: No - RENAL Hx Chronic Kidney Disease: No - ENDOCRINE/METABOLIC Hx Endocrine Disorders: No - HEMATOLOGICAL/ONCOLOGICAL Hx Blood Disorders: Yes Hx Anemia: Yes - INTEGUMENTARY Hx Dermatological Problems: No - MUSCULOSKELETAL/RHEUMATOLOGICAL Hx Musculoskeletal Disorders: Yes Hx Arthritis: Yes (osteoarthritis) Hx Falls: No Hx Rheumatoid Arthritis: Yes - GASTROINTESTINAL Hx Gastrointestinal Disorders: Yes Hx Bowel Surgery: Yes Other/Comment: COLON CANCER STAGE 4 WITH CHEMOTHERAPY, last chemo was august 26 2017. R side port a cath - GENITOURINARY/GYNECOLOGICAL Hx Genitourinary Disorders: No - PSYCHIATRIC Hx Psychophysiologic Disorder: Yes Hx Anxiety: Yes Hx Bipolar Disorder: Yes Hx Depression: Yes Hx Schizophrenia: Yes Hx Substance Use: No - SURGICAL HISTORY Hx Surgeries: Yes (SEE COMMENT) Hx Orthopedic Surgery: Yes (left knee TKR 03/2017) Hx Tubal Ligation: Yes (2005) Hx Vascular Access Device: Yes (RIGHT SUBCLAVIAN 2014) Other/Comment: colon cancer surgery april 2014 to remove tumor, rt side subclavian Port - ANESTHESIA Hx Anesthesia: Yes Hx Anesthesia Reactions: No Hx Malignant Hyperthermia: No Meds Allergies/Adverse Reactions: Allergies Allergy/AdvReac Type Severity Reaction Status Date / Time No Known Allergies Allergy Verified 09/13/17 13:37 - Medications Medications: Current Medications Amlodipine Besylate (Norvasc) 5 mg PO DAILY [facility] Last Admin: 09/14/17 09:16 Dose: 5 mg Amlodipine Besylate (Norvasc) 5 mg PO DAILY [facility] Last Admin: 09/14/17 09:17 Dose: Not Given Clonazepam (Klonopin) 2 mg PO TID [facility] Last Admin: 09/14/17 09:16 Dose: 2 mg Duloxetine HCl (Cymbalta) 60 mg PO DAILY [facility] Last Admin: 09/14/17 09:16 Dose: 60 mg Enoxaparin Sodium (Lovenox) 40 mg SC DAILY [facility] Last Admin: 09/14/17 09:16 Dose: 40 mg Escitalopram Oxalate (Lexapro) 20 mg PO DAILY [facility] Last Admin: 09/14/17 09:16 Dose: 20 mg Morphine Sulfate (Morphine) 4 mg IVP Q6 PRN PRN Reason: Pain, severe (8-10) Oxycodone HCl (Oxycodone Immediate Release Tab) 15 mg PO Q3H PRN PRN Reason: Pain, moderate (4-7) Last Admin: 09/14/17 02:37 Dose: 15 mg Polyethylene Glycol (Miralax) 17 gm PO DAILY [facility] Last Admin: 09/14/17 09:16 Dose: Not Given Risperidone (Risperdal Tab) 2 mg PO BID [facility] Last Admin: 09/14/17 09:16 Dose: 2 mg Trazodone HCl (Desyrel) 50 mg PO [facility] Last Admin: 09/13/17 21:50 Dose: 50 mg Zolpidem Tartrate (Ambien) 5 mg PO [facility] Last Admin: 09/13/17 21:50 Dose: 5 mg Physical Exam - Constitutional Appears: Well, Non-toxic - Head Exam Head Exam: ATRAUMATIC, NORMAL INSPECTION - Eye Exam Eye Exam: PERRL. absent: Scleral icterus - ENT Exam ENT Exam: Normal External Ear Exam Additional comments: Poor dentition - Neck Exam Neck exam: Positive for: Full Rom. Negative for: Thyromegaly - Respiratory Exam Respiratory Exam: Wheezes, NORMAL BREATHING PATTERN - Cardiovascular Exam Cardiovascular Exam: REGULAR RHYTHM, RRR, +S1, +S2. absent: JVD - GI/Abdominal Exam GI & Abdominal Exam: Normal Bowel Sounds. absent: Organomegaly - Extremities Exam Extremities exam: Negative for: calf tenderness, pedal edema - Neurological Exam Neurological exam: CN II-XII Intact, Oriented x3 - Psychiatric Exam Psychiatric exam: Normal Affect, Normal Mood Results - Vital Signs Recent Vital Signs: Last Vital Signs Temp 97.9 F 09/14/17 07:05 Pulse 80 09/14/17 07:05 Resp 20 07/21/18 07:05 BP 108/75 09/14/17 07:05 Pulse Ox 96 09/14/17 07:05 - Labs Result Diagrams: 09/13/17 14:28 09/13/17 14:28 Labs: Laboratory Results - last 24 hr 09/13/17 09/13/17 09/13/17 14:28 14:28 14:28 WBC 4.9 RBC 4.70 Hgb 11.8 Hct 36.1 MCV 76.8 L MCH 25.2 L MCHC 32.8 L RDW 18.0 H Plt Count 134 MPV 8.4 Neut % (Auto) 77.7 H Lymph % (Auto) 16.7 L [place] % (Auto) 4.0 Eos % (Auto) 0.8 Baso % (Auto) 0.8 Neut # (Auto) 3.8 Lymph # (Auto) 0.8 L [place] # (Auto) 0.2 Eos # (Auto) 0.0 Baso # (Auto) 0.0 PT 12.6 H INR 1.2 APTT 32 Sodium 140 Potassium 4.2 Chloride 102 Carbon Dioxide 28 Anion Gap 14 BUN 9 Creatinine 0.8 Est GFR ( Amer) > 60 Est GFR (Non-Af Amer) > 60 Random Glucose 92 Calcium 9.1 Total Bilirubin 0.6 AST 27 ALT 26 Alkaline Phosphatase 78 Total Creatine Kinase 46 CK-MB (Mass) 0.29 Troponin I < 0.0120 Total Protein 7.4 Albumin 4.3 Globulin 3.0 Albumin/Globulin Ratio 1.4 Urine Color Urine Clarity Urine pH Ur Specific [place] Urine Protein Urine Glucose (UA) Urine Ketones Urine Blood Urine Nitrate Urine Bilirubin Urine Urobilinogen Ur Leukocyte Esterase Urine WBC (Auto) Ur Squamous Epith Cells Urine Bacteria Urine HCG, Qual 09/13/17 09/13/17 09/14/17 14:36 21:56 06:53 WBC RBC Hgb Hct MCV MCH MCHC RDW Plt Count MPV Neut % (Auto) Lymph % (Auto) [place] % (Auto) Eos % (Auto) Baso % (Auto) Neut # (Auto) Lymph # (Auto) [place] # (Auto) Eos # (Auto) Baso # (Auto) PT INR APTT Sodium Potassium Chloride Carbon Dioxide Anion Gap BUN Creatinine Est GFR ( Amer) Est GFR (Non-Af Amer) Random Glucose Calcium Total Bilirubin AST ALT Alkaline Phosphatase Total Creatine Kinase 43 36 CK-MB (Mass) 0.27 < 0.22 Troponin I < 0.0120 < 0.0120 Total Protein Albumin Globulin Albumin/Globulin Ratio Urine Color Yellow Urine Clarity Hazy Urine pH 6.0 Ur Specific [place] 1.013 Urine Protein Negative Urine Glucose (UA) Normal Urine Ketones Negative Urine Blood Negative Urine Nitrate Negative Urine Bilirubin Negative Urine Urobilinogen Normal Ur Leukocyte Esterase Neg Urine WBC (Auto) 2 Ur Squamous Epith Cells 10 H Urine Bacteria Rare Urine HCG, Qual Negative - EKG Data EKG Interpreted by: Myself EKG shows normal: Sinus rhythm - Imaging and Cardiology CT scan - chest Additional comment: No pulmonary embolism, lung mass Assessment & Plan - Assessment and Plan (Free Text) Assessment: 46 year old female with chest pain [place] was ruled out, unlikely to be ischemia HTN is chronic and stable on norvasc Oncology - chemo for metastatic colon CA OA chronic and stable s/p left knee replacement She should follow up in my office in 1-2 week to reasses her symptoms. - Date & Time Date: 09/14/17 Time: :
[2017-09-14 14:32] LABS: CK-MB 0.22 ng/mL (0.0-3.38)
--- NOTE | 2017-09-14 15:38 | CP.PCM.PN ---
Subjective - Date & Time of Evaluation Date of Evaluation: 09/14/17 Time of Evaluation: 10:45 - Subjective Subjective: clinically same Objective - Vital Signs/Intake and Output Vital Signs (last 24 hours): Temp Pulse Resp BP Pulse Ox 97.9 F 77 20 108/75 96 09/14/17 07:05 09/14/17 12:29 09/14/17 07:05 09/14/17 07:05 09/14/17 07:05 Intake and Output: 09/14/17 09/14/17 06:59 18:59 Intake Total 480 Balance 480 - Medications Medications: Current Medications Amlodipine Besylate (Norvasc) 5 mg PO DAILY [facility] Last Admin: 09/14/17 09:16 Dose: 5 mg Amlodipine Besylate (Norvasc) 5 mg PO DAILY [facility] Last Admin: 09/14/17 09:17 Dose: Not Given Clonazepam (Klonopin) 2 mg PO TID [facility] Last Admin: 09/14/17 13:18 Dose: 2 mg Duloxetine HCl (Cymbalta) 60 mg PO DAILY [facility] Last Admin: 09/14/17 09:16 Dose: 60 mg Enoxaparin Sodium (Lovenox) 40 mg SC DAILY [facility] Last Admin: 09/14/17 09:16 Dose: 40 mg Escitalopram Oxalate (Lexapro) 20 mg PO DAILY [facility] Last Admin: 09/14/17 09:16 Dose: 20 mg Morphine Sulfate (Morphine) 4 mg IVP Q6 PRN PRN Reason: Pain, severe (8-10) Oxycodone HCl (Oxycodone Immediate Release Tab) 15 mg PO Q3H PRN PRN Reason: Pain, moderate (4-7) Last Admin: 09/14/17 13:19 Dose: 15 mg Polyethylene Glycol (Miralax) 17 gm PO DAILY [facility] Last Admin: 09/14/17 09:16 Dose: Not Given Risperidone (Risperdal Tab) 2 mg PO BID [facility] Last Admin: 09/14/17 09:16 Dose: 2 mg Trazodone HCl (Desyrel) 50 mg PO HS [facility] Last Admin: 09/13/17 21:50 Dose: 50 mg Zolpidem Tartrate (Ambien) 5 mg PO HS [facility] Last Admin: 09/13/17 21:50 Dose: 5 mg - Labs Labs: 09/13/17 14:28 09/13/17 14:28 PT 12.6 SECONDS (9.7-12.2) H 09/13/17 14:28 INR 1.2 09/13/17 14:28 APTT 32 SECONDS (21-34) 09/13/17 14:28 - Constitutional Appears: Well - Head Exam Head Exam: ATRAUMATIC, NORMAL INSPECTION, NORMOCEPHALIC - Eye Exam Eye Exam: EOMI, Normal appearance, PERRL Pupil Exam: NORMAL ACCOMODATION, PERRL - ENT Exam ENT Exam: Mucous Membranes Moist, Normal Exam - Neck Exam Neck Exam: Full ROM, Normal Inspection. absent: Lymphadenopathy - Respiratory Exam Respiratory Exam: Decreased Breath Sounds - Cardiovascular Exam Cardiovascular Exam: REGULAR RHYTHM, +S1, +S2 - GI/Abdominal Exam GI & Abdominal Exam: Soft, Diminished Bowel Sounds - Rectal Exam Rectal Exam: Deferred
[2017-09-15] MEDS: oxyCODONE 5 mg Immediate Release Tab PO PRN ×3 (01:14→21:50)
[2017-09-15] MEDS: Enoxaparin 40 mg Syringe SC SCH (09:23)
[2017-09-15] MEDS: POLYETHYLENE GLYCOL 3350 17 GM/Dose PACKET PO SCH (09:24)
--- NOTE | 2017-09-15 17:39 | CP.PCM.PN ---
Subjective - Date & Time of Evaluation Date of Evaluation: 09/15/17 Time of Evaluation: 10:00 - Subjective Subjective: clinically same Objective - Vital Signs/Intake and Output Vital Signs (last 24 hours): Temp Pulse Resp BP Pulse Ox 97.4 F L 80 20 99/64 L 96 09/15/17 16:00 09/15/17 16:00 09/15/17 16:00 09/15/17 16:00 09/15/17 16:00 Intake and Output: 09/15/17 09/15/17 06:59 18:59 Intake Total 450 Balance 450 - Medications Medications: Current Medications Amlodipine Besylate (Norvasc) 5 mg PO DAILY [facility] Last Admin: 09/15/17 09:23 Dose: 5 mg Amlodipine Besylate (Norvasc) 5 mg PO DAILY [facility] Last Admin: 09/15/17 09:24 Dose: Not Given Clonazepam (Klonopin) 2 mg PO TID [facility] Last Admin: 09/15/17 17:03 Dose: 2 mg Duloxetine HCl (Cymbalta) 60 mg PO DAILY [facility] Last Admin: 09/15/17 09:24 Dose: 60 mg Enoxaparin Sodium (Lovenox) 40 mg SC DAILY [facility] Last Admin: 09/15/17 09:23 Dose: 40 mg Escitalopram Oxalate (Lexapro) 20 mg PO DAILY [facility] Last Admin: 09/15/17 09:24 Dose: 20 mg Morphine Sulfate (Morphine) 4 mg IVP Q6 PRN PRN Reason: Pain, severe (8-10) Oxycodone HCl (Oxycodone Immediate Release Tab) 15 mg PO Q3H PRN PRN Reason: Pain, moderate (4-7) Last Admin: 09/15/17 14:07 Dose: 15 mg Polyethylene Glycol (Miralax) 17 gm PO DAILY [facility] Last Admin: 09/15/17 09:24 Dose: Not Given Risperidone (Risperdal Tab) 2 mg PO BID [facility] Last Admin: 09/15/17 17:03 Dose: 2 mg Trazodone HCl (Desyrel) 50 mg PO HS [facility] Last Admin: 09/14/17 22:01 Dose: 50 mg Zolpidem Tartrate (Ambien) 5 mg PO HS [facility] Last Admin: 09/14/17 22:02 Dose: 5 mg - Labs Labs: 09/13/17 14:28 09/13/17 14:28 PT 12.6 SECONDS (9.7-12.2) H 09/13/17 14:28 INR 1.2 09/13/17 14:28 APTT 32 SECONDS (21-34) 09/13/17 14:28 - Constitutional Appears: Well - Head Exam Head Exam: ATRAUMATIC, NORMAL INSPECTION, NORMOCEPHALIC - Eye Exam Eye Exam: EOMI, Normal appearance, PERRL Pupil Exam: NORMAL ACCOMODATION, PERRL - ENT Exam ENT Exam: Mucous Membranes Moist, Normal Exam - Neck Exam Neck Exam: Full ROM, Normal Inspection. absent: Lymphadenopathy - Respiratory Exam Respiratory Exam: Decreased Breath Sounds - Cardiovascular Exam Cardiovascular Exam: REGULAR RHYTHM, +S1, +S2 - GI/Abdominal Exam GI & Abdominal Exam: Soft, Diminished Bowel Sounds - Rectal Exam Rectal Exam: Deferred
[2017-09-16] MEDS: oxyCODONE 5 mg Immediate Release Tab PO PRN ×3 (06:15→21:14)
[2017-09-16] MEDS: Enoxaparin 40 mg Syringe SC SCH (09:44)
[2017-09-16] MEDS: POLYETHYLENE GLYCOL 3350 17 GM/Dose PACKET PO SCH (09:45)
--- NOTE | 2017-09-16 15:49 | CP.PCM.PN ---
Subjective - Date & Time of Evaluation Date of Evaluation: 09/16/17 Time of Evaluation: 15:49 - Subjective Subjective: Progress note for Dr. Dionisio Harris's Service Patient seen and examined at bedside. Per nursing no acute events occurred overnight. Patient reports an improvement in symptoms since being admitted to the hospital. The patient denies any chest pain, palpitations, fevers, chills, nausea, vomitiny, or any other complaints. Objective - Vital Signs/Intake and Output Vital Signs (last 24 hours): Temp Pulse Resp BP Pulse Ox 97.9 F 92 H 18 104/70 93 L 09/16/17 07:10 09/16/17 07:10 09/16/17 07:10 09/16/17 07:10 09/16/17 07:10 - Medications Medications: Current Medications Amlodipine Besylate (Norvasc) 5 mg PO DAILY [facility] Last Admin: 09/16/17 09:45 Dose: 5 mg Amlodipine Besylate (Norvasc) 5 mg PO DAILY [facility] Last Admin: 09/16/17 09:45 Dose: Not Given Clonazepam (Klonopin) 2 mg PO TID [facility] Last Admin: 09/16/17 14:10 Dose: 2 mg Duloxetine HCl (Cymbalta) 60 mg PO DAILY [facility] Last Admin: 09/16/17 09:44 Dose: 60 mg Enoxaparin Sodium (Lovenox) 40 mg SC DAILY [facility] Last Admin: 09/16/17 09:44 Dose: 40 mg Escitalopram Oxalate (Lexapro) 20 mg PO DAILY [facility] Last Admin: 09/16/17 09:45 Dose: 20 mg Morphine Sulfate (Morphine) 4 mg IVP Q6 PRN PRN Reason: Pain, severe (8-10) Oxycodone HCl (Oxycodone Immediate Release Tab) 15 mg PO Q3H PRN PRN Reason: Pain, moderate (4-7) Last Admin: 09/16/17 14:10 Dose: 15 mg Polyethylene Glycol (Miralax) 17 gm PO DAILY [facility] Last Admin: 09/16/17 09:45 Dose: Not Given Risperidone (Risperdal Tab) 2 mg PO BID [facility] Last Admin: 09/16/17 09:45 Dose: 2 mg Trazodone HCl (Desyrel) 50 mg PO HS [facility] Last Admin: 07/22/18 21:41 Dose: 50 mg Zolpidem Tartrate (Ambien) 5 mg PO HS [facility] Last Admin: 09/15/17 21:41 Dose: 5 mg - Labs Labs: 09/13/17 14:28 09/13/17 14:28 PT 12.6 SECONDS (9.7-12.2) H 09/13/17 14:28 INR 1.2 09/13/17 14:28 APTT 32 SECONDS (21-34) 09/13/17 14:28 - Head Exam Head Exam: ATRAUMATIC, NORMAL INSPECTION, NORMOCEPHALIC - Eye Exam Eye Exam: EOMI, Normal appearance, PERRL Pupil Exam: NORMAL ACCOMODATION, PERRL - ENT Exam ENT Exam: Mucous Membranes Moist, Normal Oropharynx - Respiratory Exam Respiratory Exam: Clear to Ausculation Bilateral, NORMAL BREATHING PATTERN - Cardiovascular Exam Cardiovascular Exam: REGULAR RHYTHM, +S1, +S2 - GI/Abdominal Exam GI & Abdominal Exam: Soft, Normal Bowel Sounds - Extremities Exam Extremities Exam: Full ROM - Back Exam Back Exam: NORMAL INSPECTION. absent: CVA tenderness (L), CVA tenderness (R), paraspinal tenderness - Neurological Exam Neurological Exam: Alert, Awake, Normal Gait, Oriented x3 - Psychiatric Exam Psychiatric exam: Normal Affect, Normal Mood Assessment and Plan - Assessment and Plan (Free Text) Assessment: 46 year old female with a past medical history of depression, stage 4 colon cancer with liver and lung mets who was admitted for chest pain r/o acs. Plan: 1. Chest pain r/o acs EKG: nsr @ 82, Left axis deviation, no ST/T changes -DEMAR Panel (-)x4 -Cardiolgy consulted. Help appreciated PPX Lovenox Dispo: Patient medically cleared by Cardiology with rec's to f/u as OP in 1-2 weeks from discharge date. Plan discussed with Dr. Dionisio Montes, PGY-2
[2017-09-16 17:30] VITALS: RESP 20
--- NOTE | 2017-09-16 19:07 | CP.PCM.PN ---
Subjective - Date & Time of Evaluation Date of Evaluation: 09/16/17 Time of Evaluation: 12:00 - Subjective Subjective: clinically same Objective - Vital Signs/Intake and Output Vital Signs (last 24 hours): Temp Pulse Resp BP Pulse Ox 97.8 F 77 20 118/81 95 09/16/17 16:00 09/16/17 16:00 09/16/17 16:00 09/16/17 16:00 09/16/17 16:00 - Medications Medications: Current Medications Amlodipine Besylate (Norvasc) 5 mg PO DAILY [facility] Last Admin: 09/16/17 09:45 Dose: 5 mg Amlodipine Besylate (Norvasc) 5 mg PO DAILY [facility] Last Admin: 09/16/17 09:45 Dose: Not Given Clonazepam (Klonopin) 2 mg PO TID [facility] Last Admin: 09/16/17 17:13 Dose: 2 mg Duloxetine HCl (Cymbalta) 60 mg PO DAILY [facility] Last Admin: 09/16/17 09:44 Dose: 60 mg Enoxaparin Sodium (Lovenox) 40 mg SC DAILY [facility] Last Admin: 09/16/17 09:44 Dose: 40 mg Escitalopram Oxalate (Lexapro) 20 mg PO DAILY [facility] Last Admin: 09/16/17 09:45 Dose: 20 mg Morphine Sulfate (Morphine) 4 mg IVP Q6 PRN PRN Reason: Pain, severe (8-10) Oxycodone HCl (Oxycodone Immediate Release Tab) 15 mg PO Q3H PRN PRN Reason: Pain, moderate (4-7) Last Admin: 09/16/17 14:10 Dose: 15 mg Polyethylene Glycol (Miralax) 17 gm PO DAILY [facility] Last Admin: 09/16/17 09:45 Dose: Not Given Risperidone (Risperdal Tab) 2 mg PO BID [facility] Last Admin: 09/16/17 17:13 Dose: 2 mg Trazodone HCl (Desyrel) 50 mg PO HS [facility] Last Admin: 09/15/17 21:41 Dose: 50 mg Zolpidem Tartrate (Ambien) 5 mg PO HS [facility] Last Admin: 09/15/17 21:41 Dose: 5 mg - Labs Labs: 09/13/17 14:28 09/13/17 14:28 PT 12.6 SECONDS (9.7-12.2) H 09/13/17 14:28 INR 1.2 09/13/17 14:28 APTT 32 SECONDS (21-34) 09/13/17 14:28 - Constitutional Appears: Well - Head Exam Head Exam: ATRAUMATIC, NORMAL INSPECTION, NORMOCEPHALIC - Eye Exam Eye Exam: EOMI, Normal appearance, PERRL Pupil Exam: NORMAL ACCOMODATION, PERRL - ENT Exam ENT Exam: Mucous Membranes Moist, Normal Exam - Neck Exam Neck Exam: Full ROM, Normal Inspection. absent: Lymphadenopathy - Respiratory Exam Respiratory Exam: Decreased Breath Sounds - Cardiovascular Exam Cardiovascular Exam: REGULAR RHYTHM, +S1, +S2 - GI/Abdominal Exam GI & Abdominal Exam: Soft, Diminished Bowel Sounds - Rectal Exam Rectal Exam: Deferred
[2017-09-17] MEDS: oxyCODONE 5 mg Immediate Release Tab PO PRN ×2 (06:52→14:07)
[2017-09-17 08:44] VITALS: O2SAT 97
[2017-09-17] MEDS: POLYETHYLENE GLYCOL 3350 17 GM/Dose PACKET PO SCH (10:35)
[2017-09-17] MEDS: Enoxaparin 40 mg Syringe SC SCH (10:35)
--- NOTE | 2017-09-17 14:18 | CP.PCM.PN ---
Subjective - Date & Time of Evaluation Date of Evaluation: 09/17/17 Time of Evaluation: 14:18 - Subjective Subjective: Progress note for Dr. Dionisio Harris's Service Patient seen and examined at bedside. Per nursing no acute events occurred overnight. Patient reports an improvement in symptoms since being admitted to the hospital. The patient denies any chest pain, palpitations, fevers, chills, nausea, vomiting, or any other complaints. 46 year old female with history of depression, anemia, Stagve IV colon cancer with liver and lung metasis (dx in 2015), vertigo who was admitted for chest pain. She initially reported the chest pain was located mid-sternally with no radiation. She described it as pressure with no inciting factors. Of note in relation to her cancer, her chemotherapy had been on hold for several months due to orthopedic surgery, complicated by infection. She was found to have a lung mass during a past admission for chest pain. A percutaneous biopsy was consistent with colon primary metastasis. She is scheduled to restart chemotherapy as an outpatient. She denies any fevers, chills, nausea, vomiting , changes in vision, abdominal pain, or any other complaints. Past medical history: depression, anemia. Surgical history: Knee surgery, portacatheter placement and removal Family history: Denies Social history: Denies tobacco and alcohol use. Denies illicit drug use. Allergies: Denies Objective - Vital Signs/Intake and Output Vital Signs (last 24 hours): Temp Pulse Resp BP Pulse Ox 98 F 91 H 20 119/84 97 09/17/17 07:30 09/17/17 07:30 09/17/17 07:30 09/17/17 07:30 09/17/17 07:30 - Medications Medications: Current Medications Amlodipine Besylate (Norvasc) 5 mg PO DAILY [facility] Last Admin: 09/17/17 10:35 Dose: 5 mg Amlodipine Besylate (Norvasc) 5 mg PO DAILY [facility] Last Admin: 09/17/17 10:35 Dose: Not Given Clonazepam (Klonopin) 2 mg PO TID [facility] Last Admin: 09/17/17 14:01 Dose: 2 mg Duloxetine HCl (Cymbalta) 60 mg PO DAILY [facility] Last Admin: 09/17/17 10:35 Dose: 60 mg Enoxaparin Sodium (Lovenox) 40 mg SC DAILY [facility] Last Admin: 09/17/17 10:35 Dose: 40 mg Escitalopram Oxalate (Lexapro) 20 mg PO DAILY [facility] Last Admin: 09/17/17 10:35 Dose: 20 mg Morphine Sulfate (Morphine) 4 mg IVP Q6 PRN PRN Reason: Pain, severe (8-10) Oxycodone HCl (Oxycodone Immediate Release Tab) 15 mg PO Q3H PRN PRN Reason: Pain, moderate (4-7) Last Admin: 09/17/17 14:07 Dose: 15 mg Polyethylene Glycol (Miralax) 17 gm PO DAILY [facility] Last Admin: 09/17/17 10:35 Dose: Not Given Risperidone (Risperdal Tab) 2 mg PO BID [facility] Last Admin: 09/17/17 10:35 Dose: 2 mg Trazodone HCl (Desyrel) 50 mg PO HS [facility] Last Admin: 09/16/17 21:12 Dose: Not Given Zolpidem Tartrate (Ambien) 5 mg PO HS [facility] Last Admin: 09/16/17 21:11 Dose: 5 mg - Labs Labs: 09/13/17 14:28 09/13/17 14:28 PT 12.6 SECONDS (9.7-12.2) H 09/13/17 14:28 INR 1.2 09/13/17 14:28 APTT 32 SECONDS (21-34) 09/13/17 14:28 Assessment and Plan - Assessment and Plan (Free Text) Assessment: 46 year old female with history of depression, anemia, Stagve IV colon coacner with liver and lung metasis (dx in 2014), vertigo who was admitted for chest pain. Plan: 1. Chest pain r/o acs -Troponins (-)x4 -Cardiology consulted. Help appreciated 2. hx of Colon cancer with metastasis to lung and liver - Expected to restart treatment as an outpatient. 3. hx of anemia of chronic disease -Stable. Will monitor 4. hx of Insomnia -Ambien 5mg PO HS Daily 5. hx of hypertension -Amlodipine 5mg PO Daily 6. hx of depression -Cymbalta 60mg PO Daily -Lexapro 20mg PO Daily PPX Lovenox Dispo: Patient medically cleared by Cardiology with rec's to f/u as OP in 1-2 weeks from discharge date. Plan discussed with Dr. Dionisio Montes, PGY-2
[2017-09-17 15:58] VITALS: BP 104/62; PULSE 87; TEMP 97.4
--- NOTE | 2017-09-17 18:03 | CP.PCM.PN ---
Subjective - Date & Time of Evaluation Date of Evaluation: 09/17/17 Time of Evaluation: 10:40 - Subjective Subjective: clinically same Objective - Vital Signs/Intake and Output Vital Signs (last 24 hours): Temp Pulse Resp BP Pulse Ox 97.4 F L 87 20 104/62 97 09/17/17 15:03 09/17/17 15:03 09/17/17 15:03 09/17/17 15:03 09/17/17 15:48 - Medications Medications: Current Medications Amlodipine Besylate (Norvasc) 5 mg PO DAILY [facility] Last Admin: 09/17/17 10:35 Dose: 5 mg Amlodipine Besylate (Norvasc) 5 mg PO DAILY [facility] Last Admin: 09/17/17 10:35 Dose: Not Given Clonazepam (Klonopin) 2 mg PO TID [facility] Last Admin: 09/17/17 17:39 Dose: 2 mg Duloxetine HCl (Cymbalta) 60 mg PO DAILY [facility] Last Admin: 09/17/17 10:35 Dose: 60 mg Enoxaparin Sodium (Lovenox) 40 mg SC DAILY [facility] Last Admin: 09/17/17 10:35 Dose: 40 mg Escitalopram Oxalate (Lexapro) 20 mg PO DAILY [facility] Last Admin: 09/17/17 10:35 Dose: 20 mg Morphine Sulfate (Morphine) 4 mg IVP Q6 PRN PRN Reason: Pain, severe (8-10) Oxycodone HCl (Oxycodone Immediate Release Tab) 15 mg PO Q3H PRN PRN Reason: Pain, moderate (4-7) Last Admin: 09/17/17 14:07 Dose: 15 mg Polyethylene Glycol (Miralax) 17 gm PO DAILY [facility] Last Admin: 09/17/17 10:35 Dose: Not Given Risperidone (Risperdal Tab) 2 mg PO BID [facility] Last Admin: 09/17/17 17:39 Dose: 2 mg Trazodone HCl (Desyrel) 50 mg PO HS [facility] Last Admin: 09/16/17 21:12 Dose: Not Given Zolpidem Tartrate (Ambien) 5 mg PO HS [facility] Last Admin: 09/16/17 21:11 Dose: 5 mg - Labs Labs: 09/13/17 14:28 09/13/17 14:28 PT 12.6 SECONDS (9.7-12.2) H 09/13/17 14:28 INR 1.2 09/13/17 14:28 APTT 32 SECONDS (21-34) 09/13/17 14:28 - Constitutional Appears: Well - Head Exam Head Exam: ATRAUMATIC, NORMAL INSPECTION, NORMOCEPHALIC - Eye Exam Eye Exam: EOMI, Normal appearance, PERRL Pupil Exam: NORMAL ACCOMODATION, PERRL - ENT Exam ENT Exam: Mucous Membranes Moist, Normal Exam - Neck Exam Neck Exam: Full ROM, Normal Inspection. absent: Lymphadenopathy - Respiratory Exam Respiratory Exam: Decreased Breath Sounds - Cardiovascular Exam Cardiovascular Exam: REGULAR RHYTHM, +S1, +S2 - GI/Abdominal Exam GI & Abdominal Exam: Soft, Diminished Bowel Sounds - Rectal Exam Rectal Exam: Deferred
== END 2017-09-17 18:46 | disposition home or self-care (01) | DRG 313 ==
LOC: C.ER 13:31 → C.9E 15:13 → C.6T 16:27
PROVIDERS: ADMIT Internal Medicine Nephrology; ATTEND Internal Medicine Nephrology
DX: R07.89 Other chest pain (principal); C18.9 Malignant neoplasm of colon, unspecified; C78.00 Secondary malignant neoplasm of unspecified lung; C78.7 Secondary malignant neoplasm of liver and intrahepatic bile duct; F31.9 Bipolar disorder, unspecified; I10 Essential (primary) hypertension; J45.909 Unspecified asthma, uncomplicated; F20.9 Schizophrenia, unspecified; Z87.891 Personal history of nicotine dependence; Z96.652 Presence of left artificial knee joint; M06.9 Rheumatoid arthritis, unspecified

== ENCOUNTER 2017-09-18 12:41 | Inpatient (IN) | payer MEDICARE ==
[2017-09-18 12:41] VITALS: BMI 38.8
--- NOTE | 2017-09-18 13:46 | C.PDOC ---
History Of Present Illness 46yo female with history of bipolar disorder, depression and metastatic colon cancer, comes to ER for evaluation after she felt dizziness. Patient states she was in the hospital last week for chest pain, admitted under Dr. Tlia Harris and was recently discharged. While at home, patient attempted to get into the shower and felt an episode of vertiginous dizziness, and reports she felt like "passing out." She also reports an episode of associated palpitation and sharp/ stabbing pain in her lung. Otherwise, denies any fever, vision changes, headache , vomiting, and offers no additional medical complaints. Time Seen by Provider: 09/18/17 13:21 Chief Complaint (Nursing): Dizziness/Lightheaded History Per: Patient History/Exam Limitations: no limitations Activity At Onset Of Symptoms: Standing Associated Symptoms Preceding Syncopal Episode: Vertigo Fall Associated With With Symptoms: No Additional History Per: Patient Past Medical History Reviewed: Historical Data, Nursing Documentation, Vital Signs Vital Signs: Last Vital Signs Temp 97.6 F 09/18/17 12:55 Pulse 99 H 09/18/17 13:23 Resp 18 09/18/17 13:23 BP 125/72 09/18/17 13:23 Pulse Ox 99 09/18/17 13:48 - Medical History PMH: Anemia, Anxiety, Arthritis (osteoarthritis), Asthma, Back Problems, Bipolar Disorder, Depression, HTN, Malignancy (Colon), Rheumatoid Arthritis, Schizophrenia Denies: Chronic Kidney Disease Surgical History: No Surg Hx - [facility] Procedures CLOSED ENDOSCOPIC BIOPSY OF LARGE INTESTINE (05/23/14) COLONOSCOPY (08/12/14) DX ULTRASOUND-ABDOMEN (05/23/14) INSERTION OF TOTALLY IMPLANTABLE VASC ACCESS DEVIC (05/23/14) LAPAROSCOP LYSIS-PERITONEAL ADHES (05/23/14) LAPAROSCOPIC SIGMOIDECTOMY (05/23/14) OTHER ENDOSCOPY OF SM INTEST (05/23/14) PACKED CELL TRANSFUSION (05/23/14) PERCUTAN NEEDLE BX OF LIVER (05/23/14) REMOVAL OF VAD FROM TRUNK SUBCU/FASCIA, PERC APPROACH (03/16/15) Family History: States: No Known Family Hx, Unknown Family Hx - Social History Hx Tobacco Use: No Hx Alcohol Use: No Hx Substance Use: No - Immunization History Hx Tetanus Toxoid Vaccination: No Hx Influenza Vaccination: Yes Hx Pneumococcal Vaccination: No Review Of Systems Constitutional: Negative for: Fever, Chills Eyes: Negative for: Vision Change Cardiovascular: Positive for: Palpitations Respiratory: Positive for: Other (sharp/stabbing lung pain) Gastrointestinal: Negative for: Vomiting Neurological: Positive for: Dizziness. Negative for: Headache Physical Exam - Physical Exam Appears: Non-toxic, No Acute Distress Skin: Normal Color Head: Atraumatic, Normacephalic Eye(s): bilateral: Normal Inspection, PERRL, EOMI Neck: Supple Chest: Symmetrical, No Tenderness Cardiovascular: Rhythm Regular, No Murmur Respiratory: Normal Breath Sounds Gastrointestinal/Abdominal: Soft, No Tenderness Extremity: Normal ROM Neurological/Psych: Oriented x3, Other (flat affect) ED Course And Treatment - Laboratory Results Result Diagrams: 09/18/17 13:59 09/18/17 13:59 Lab Interpretation: Normal ECG: Interpreted By Me ECG Rhythm: Sinus Rhythm ECG Interpretation: Normal O2 Sat by Pulse Oximetry: 99 (RA) Pulse Ox Interpretation: Normal Progress Note: Labs and UA ordered. - Physician Consult Information Time Consulting Physician Contacted: 14:44 Physician Contacted: Rosaura Harris Outcome Of Conversation: Patient to be admitted for chest pain with near syncope. Medical Decision Making Medical Decision Making: Prior records reviewed and during latest admission, patient had negative serial troponin; chest pain determined to be unrelated to ischemia. Disposition - Disposition Disposition: HOSPITALIZED Disposition Time: 14:44 Condition: STABLE - POA Present On Arrival: None - Clinical Impression Clinical Impression: Near syncope, Chest pain - Scribe Statement The provider has reviewed the documentation as recorded by the Gloria Rosales Provider Attestation: All medical record entries made by the Gloria were at my direction and personally dictated by me. I have reviewed the chart and agree that the record accurately reflects my personal performance of the history, physical exam, medical decision making, and the department course for this patient. I have also personally directed, reviewed, and agree with the discharge instructions and disposition.
[2017-09-18 14:02] LABS: BASO % 0.8 % (0.0-2.0); EOS % 0.6 % (0.0-4.0); HEMOGLOBIN 11.9 g/dL (11.0-16.0); LYMPH # 0.9 K/uL (1.0-4.3); LYMPH % 15.5 % (20.0-40.0); MEAN CELL VOLUME 76.3 fL (81.0-99.0); MEAN CORPUSCULAR HEMOGLOBIN 25.5 pg (27.0-31.0); MEAN CORPUSCULAR HGB CONC 33.4 g/dL (33.0-37.0); MEAN PLATELET VOLUME 8.8 fL (7.2-11.7); MONO # 0.3 K/uL (0.0-0.8); MONO % 5.2 % (0.0-10.0); NEUT # 4.3 K/uL (1.8-7.0); NEUT % 77.9 % (50.0-75.0); NRBC % 0.1 % (0.0-2.0); RBC 4.68 Mil/uL (3.80-5.20); RED CELL DISTRIBUTION WIDTH 18.4 % (11.5-14.5); WHITE BLOOD COUNT 5.5 K/uL (4.8-10.8)
[2017-09-18 14:33] LABS: ALB/GLOB RATIO 1.3 (1.0-2.1); ALBUMIN 4.1 g/dL (3.5-5.0); ALT/SGPT 19 U/L (9-52); AST/SGOT 30 U/L (14-36); BLOOD UREA NITROGEN 17 mg/dL (7-17); CALCIUM 9.3 mg/dl (8.6-10.4); GFR AFRICAN-AMERICAN > 60; GFR NON-AFRICAN AMERICAN > 60
[2017-09-18 15:01] LABS: SQUAMOUS EPITHIAL 1 /hpf (0-5); URINE BACTERIA RARE (<OCC); URINE BILIRUBIN NEGATIVE (NEGATIVE); URINE BLOOD NEGATIVE (NEGATIVE); URINE CLARITY Clear (Clear); URINE COLOR Straw (YELLOW); URINE GLUCOSE (UA) NORMAL (Normal); URINE LEUKOCYTE ESTERASE NEG Leu/uL (Negative); URINE PROTEIN NEGATIVE (NEGATIVE); URINE UROBILINOGEN NORMAL mg/dL (0.2-1.0)
--- NOTE | 2017-09-18 18:10 | CP.PCM.PN ---
Subjective - Date & Time of Evaluation Date of Evaluation: 09/18/17 Time of Evaluation: 10:00 - Subjective Subjective: clinically same Objective - Vital Signs/Intake and Output Vital Signs (last 24 hours): Temp Pulse Resp BP Pulse Ox 98.5 F 93 H 12 141/86 99 09/18/17 15:36 09/18/17 15:36 09/18/17 15:36 09/18/17 15:36 09/18/17 15:36 - Medications Medications: Current Medications Aspirin (Aspirin Chewable) 81 mg PO DAILY [facility] Enoxaparin Sodium (Lovenox) 40 mg SC DAILY [facility] Pantoprazole Sodium (Protonix Ec Tab) 40 mg PO DAILY [facility] - Labs Labs: 09/18/17 13:59 09/18/17 13:59 - Constitutional Appears: Well - Head Exam Head Exam: ATRAUMATIC, NORMAL INSPECTION, NORMOCEPHALIC - Eye Exam Eye Exam: EOMI, Normal appearance, PERRL Pupil Exam: NORMAL ACCOMODATION, PERRL - ENT Exam ENT Exam: Mucous Membranes Moist, Normal Exam - Neck Exam Neck Exam: Full ROM, Normal Inspection. absent: Lymphadenopathy - Respiratory Exam Respiratory Exam: Decreased Breath Sounds - Cardiovascular Exam Cardiovascular Exam: REGULAR RHYTHM, +S1, +S2 - GI/Abdominal Exam GI & Abdominal Exam: Soft, Diminished Bowel Sounds - Rectal Exam Rectal Exam: Deferred
--- NOTE | 2017-09-18 18:12 | CP.PCM.HP ---
Past Patient History - Infectious Disease Hx of Infectious Diseases: None - Past Medical History & Family History Past Medical History?: Yes - Past Social History Smoking Status: Former Smoker - CARDIAC Hx Hypertension: Yes - PULMONARY Hx Asthma: Yes - NEUROLOGICAL Hx Neurological Disorder: No - HEENT Hx HEENT Problems: No - RENAL Hx Chronic Kidney Disease: No - ENDOCRINE/METABOLIC Hx Endocrine Disorders: No - HEMATOLOGICAL/ONCOLOGICAL Hx Anemia: Yes - INTEGUMENTARY Hx Dermatological Problems: No - MUSCULOSKELETAL/RHEUMATOLOGICAL Hx Arthritis: Yes (osteoarthritis) Hx Rheumatoid Arthritis: Yes - GASTROINTESTINAL Hx Gastrointestinal Disorders: Yes Hx Bowel Surgery: Yes Other/Comment: COLON CANCER STAGE 4 WITH CHEMOTHERAPY, last chemo was august 26 2017. R side port a cath - GENITOURINARY/GYNECOLOGICAL Hx Genitourinary Disorders: No - PSYCHIATRIC Hx Anxiety: Yes Hx Bipolar Disorder: Yes Hx Depression: Yes Hx Schizophrenia: Yes Hx Substance Use: No - SURGICAL HISTORY Hx Surgeries: Yes (SEE COMMENT) Hx Orthopedic Surgery: Yes (left knee TKR 03/2017) Hx Tubal Ligation: Yes (2005) Hx Vascular Access Device: Yes (RIGHT SUBCLAVIAN 2014) Other/Comment: colon cancer surgery april 2014 to remove tumor, rt side subclavian Port - ANESTHESIA Hx Anesthesia: Yes Hx Anesthesia Reactions: No Hx Malignant Hyperthermia: No Meds Allergies/Adverse Reactions: Allergies Allergy/AdvReac Type Severity Reaction Status Date / Time No Known Allergies Allergy Verified 09/13/17 13:37 Physical Exam - Constitutional Appears: Well - Head Exam Head Exam: ATRAUMATIC, NORMAL INSPECTION, NORMOCEPHALIC - Eye Exam Eye Exam: EOMI, Normal appearance, PERRL Pupil Exam: NORMAL ACCOMODATION, PERRL - ENT Exam ENT Exam: Mucous Membranes Moist, Normal Exam - Neck Exam Neck exam: Positive for: Normal Inspection - Respiratory Exam Respiratory Exam: Decreased Breath Sounds - Cardiovascular Exam Cardiovascular Exam: REGULAR RHYTHM, +S1, +S2 - GI/Abdominal Exam GI & Abdominal Exam: Diminished Bowel Sounds, Soft - Rectal Exam Rectal Exam: Deferred Results - Vital Signs Recent Vital Signs: Last Vital Signs Temp 98.5 F 09/18/17 15:36 Pulse 93 H 09/18/17 15:36 Resp 12 09/18/17 15:36 BP 141/86 09/18/17 15:36 Pulse Ox 99 09/18/17 15:36 - Labs Result Diagrams: 09/18/17 13:59 09/18/17 13:59 Labs: Laboratory Results - last 24 hr 09/18/17 09/18/17 09/18/17 13:59 13:59 14:47 WBC 5.5 RBC 4.68 Hgb 11.9 Hct 35.7 MCV 76.3 L MCH 25.5 L MCHC 33.4 RDW 18.4 H Plt Count 142 MPV 8.8 Neut % (Auto) 77.9 H Lymph % (Auto) 15.5 L [place] % (Auto) 5.2 Eos % (Auto) 0.6 Baso % (Auto) 0.8 Neut # (Auto) 4.3 Lymph # (Auto) 0.9 L [place] # (Auto) 0.3 Eos # (Auto) 0.0 Baso # (Auto) 0.0 Sodium 138 Potassium 4.6 Chloride 101 Carbon Dioxide 27 Anion Gap 15 BUN 17 Creatinine 0.8 Est GFR ( Amer) > 60 Est GFR (Non-Af Amer) > 60 Random Glucose 94 Calcium 9.3 Magnesium 2.1 Total Bilirubin 0.6 AST 30 ALT 19 Alkaline Phosphatase 80 Troponin I < 0.0120 Total Protein 7.2 Albumin 4.1 Globulin 3.1 Albumin/Globulin Ratio 1.3 Urine Color Straw Urine Clarity Clear Urine pH 7.0 Ur Specific [place] 1.004 Urine Protein Negative Urine Glucose (UA) Normal Urine Ketones Negative Urine Blood Negative Urine Nitrate Negative Urine Bilirubin Negative Urine Urobilinogen Normal Ur Leukocyte Esterase Neg Urine WBC (Auto) < 1 Urine RBC (Auto) < 1 Ur Squamous Epith Cells 1 Urine Bacteria Rare
[2017-09-18] MEDS: oxyCODONE 5 mg Immediate Release Tab PO PRN (19:05)
[2017-09-18 21:01] LABS: CK-MB 0.34 ng/mL (0.0-3.38)
--- NOTE | 2017-09-18 21:34 | CP.PCM.CON ---
History of Present Illness - History of Present Illness History of Present Illness: Ms. Hsieh is a 46 year old female with history of depression, and stage IV colon cancer with liver and lung metastasis dx in 05/2014, admitted vertigo and near syncope. Her chemotherapy had been on hold for several months due to orthopedic surgery, complicated by infection. She was found to have a lung mass during a past admission for chest pain. A percutaneous biopsy was consistent with colon primary metastasis. She is scheduled to restart chemotherapy as an outpatient. Past medical history: depression, anemia. Past surgical history: Knee surgery, portacatheter placement and removal Family history: Denies hematologic and oncologic problems Social history: Denies tobacco, alcohol, and illicit drug use. Allergies: NKA Review of systems: All remaining review of systems including HEENT, cardiovascular, respiratory, gastrointestinal, genitourinary, musculoskeletal, dermatologic, psychiatric, neurologic are negative unless mentioned in the history of present illness. Past Patient History - Infectious Disease Hx of Infectious Diseases: None - Past Medical History & Family History Past Medical History?: Yes - Past Social History Smoking Status: Former Smoker - CARDIAC Hx Hypertension: Yes - PULMONARY Hx Asthma: Yes - NEUROLOGICAL Hx Neurological Disorder: No - HEENT Hx HEENT Problems: No - RENAL Hx Chronic Kidney Disease: No - ENDOCRINE/METABOLIC Hx Endocrine Disorders: No - HEMATOLOGICAL/ONCOLOGICAL Hx Anemia: Yes - INTEGUMENTARY Hx Dermatological Problems: No - MUSCULOSKELETAL/RHEUMATOLOGICAL Hx Arthritis: Yes (osteoarthritis) Hx Rheumatoid Arthritis: Yes - GASTROINTESTINAL Hx Gastrointestinal Disorders: Yes Hx Bowel Surgery: Yes Other/Comment: COLON CANCER STAGE 4 WITH CHEMOTHERAPY, last chemo was august 26 2017. R side port a cath - GENITOURINARY/GYNECOLOGICAL Hx Genitourinary Disorders: No - PSYCHIATRIC Hx Anxiety: Yes Hx Bipolar Disorder: Yes Hx Depression: Yes Hx Schizophrenia: Yes Hx Substance Use: No - SURGICAL HISTORY Hx Surgeries: Yes (SEE COMMENT) Hx Orthopedic Surgery: Yes (left knee TKR 03/2017) Hx Tubal Ligation: Yes (2005) Hx Vascular Access Device: Yes (RIGHT SUBCLAVIAN 2014) Other/Comment: colon cancer surgery april 2014 to remove tumor, rt side subclavian Port - ANESTHESIA Hx Anesthesia: Yes Hx Anesthesia Reactions: No Hx Malignant Hyperthermia: No Meds Allergies/Adverse Reactions: Allergies Allergy/AdvReac Type Severity Reaction Status Date / Time No Known Allergies Allergy Verified 09/13/17 13:37 - Medications Medications: Current Medications Aspirin (Aspirin Chewable) 81 mg PO DAILY [facility] Clonazepam (Klonopin) 2 mg PO TID [facility] Diclofenac Sodium (Voltaren) 50 mg PO BID [facility] Duloxetine HCl (Cymbalta) 60 mg PO DAILY [facility] Enoxaparin Sodium (Lovenox) 40 mg SC DAILY [facility] Escitalopram Oxalate (Lexapro) 20 mg PO DAILY [facility] Finasteride (Proscar) 5 mg PO DAILY [facility] Oxycodone HCl (Oxycodone Immediate Release Tab) 15 mg PO Q3H PRN PRN Reason: Pain, moderate (4-7) Last Admin: 09/18/17 19:05 Dose: 15 mg Pantoprazole Sodium (Protonix Ec Tab) 40 mg PO DAILY [facility] Risperidone (Risperdal Tab) 2 mg PO BID [facility] Trazodone HCl (Desyrel) 50 mg PO HS [facility] Last Admin: 09/18/17 21:25 Dose: 50 mg Zolpidem Tartrate (Ambien) 5 mg PO HS [facility] Last Admin: 09/18/17 21:25 Dose: 5 mg Physical Exam - Head Exam Head Exam: ATRAUMATIC - Eye Exam Eye Exam: Normal appearance - ENT Exam ENT Exam: Mucous Membranes Dry - Respiratory Exam Respiratory Exam: NORMAL BREATHING PATTERN - Cardiovascular Exam Cardiovascular Exam: +S1, +S2 - GI/Abdominal Exam GI & Abdominal Exam: Normal Bowel Sounds - Extremities Exam Extremities exam: Positive for: pedal edema - Neurological Exam Neurological exam: Oriented x3 - Psychiatric Exam Psychiatric exam: Normal Affect, Normal Mood - Skin Skin Exam: Warm Results - Vital Signs Recent Vital Signs: Last Vital Signs Temp 97.4 F L 09/18/17 17:10 Pulse 89 09/18/17 17:10 Resp 20 09/18/17 17:10 BP 120/83 09/18/17 17:10 Pulse Ox 96 09/18/17 17:10 - Labs Result Diagrams: 09/18/17 13:59 09/18/17 13:59 Labs: Laboratory Results - last 24 hr 09/18/17 09/18/17 09/18/17 13:59 13:59 14:47 WBC 5.5 RBC 4.68 Hgb 11.9 Hct 35.7 MCV 76.3 L MCH 25.5 L MCHC 33.4 RDW 18.4 H Plt Count 142 MPV 8.8 Neut % (Auto) 77.9 H Lymph % (Auto) 15.5 L [place] % (Auto) 5.2 Eos % (Auto) 0.6 Baso % (Auto) 0.8 Neut # (Auto) 4.3 Lymph # (Auto) 0.9 L [place] # (Auto) 0.3 Eos # (Auto) 0.0 Baso # (Auto) 0.0 Sodium 138 Potassium 4.6 Chloride 101 Carbon Dioxide 27 Anion Gap 15 BUN 17 Creatinine 0.8 Est GFR ( Amer) > 60 Est GFR (Non-Af Amer) > 60 Random Glucose 94 Calcium 9.3 Magnesium 2.1 Total Bilirubin 0.6 AST 30 ALT 19 Alkaline Phosphatase 80 Total Creatine Kinase CK-MB (Mass) Troponin I < 0.0120 Total Protein 7.2 Albumin 4.1 Globulin 3.1 Albumin/Globulin Ratio 1.3 Urine Color Straw Urine Clarity Clear Urine pH 7.0 Ur Specific [place] 1.004 Urine Protein Negative Urine Glucose (UA) Normal Urine Ketones Negative Urine Blood Negative Urine Nitrate Negative Urine Bilirubin Negative Urine Urobilinogen Normal Ur Leukocyte Esterase Neg Urine WBC (Auto) < 1 Urine RBC (Auto) < 1 Ur Squamous Epith Cells 1 Urine Bacteria Rare 09/18/17 19:30 WBC RBC Hgb Hct MCV MCH MCHC RDW Plt Count MPV Neut % (Auto) Lymph % (Auto) [place] % (Auto) Eos % (Auto) Baso % (Auto) Neut # (Auto) Lymph # (Auto) [place] # (Auto) Eos # (Auto) Baso # (Auto) Sodium Potassium Chloride Carbon Dioxide Anion Gap BUN Creatinine Est GFR ( Amer) Est GFR (Non-Af Amer) Random Glucose Calcium Magnesium Total Bilirubin AST ALT Alkaline Phosphatase Total Creatine Kinase 45 CK-MB (Mass) 0.34 Troponin I < 0.0120 Total Protein Albumin Globulin Albumin/Globulin Ratio Urine Color Urine Clarity Urine pH Ur Specific [place] Urine Protein Urine Glucose (UA) Urine Ketones Urine Blood Urine Nitrate Urine Bilirubin Urine Urobilinogen Ur Leukocyte Esterase Urine WBC (Auto) Urine RBC (Auto) Ur Squamous Epith Cells Urine Bacteria Assessment & Plan (1) Colon cancer Assessment and Plan: stage IV; lung and liver metastasis outpatient chemotherapy Thank you for this interesting consult. Status: Acute
[2017-09-19] MEDS: oxyCODONE 5 mg Immediate Release Tab PO PRN ×3 (00:10→13:08)
[2017-09-19 02:53] LABS: CK-MB 0.32 ng/mL (0.0-3.38)
--- NOTE | 2017-09-19 08:09 | CP.PCM.PN ---
Subjective - Date & Time of Evaluation Date of Evaluation: 09/19/17 Time of Evaluation: 08:07 - Subjective Subjective: PGY-[address] Harris's service Pt seen and examined at bedside. No acute events overnight reported by nursing. Patient reports persistent reproducible chest pain. No repeat of palpitations or dizziness overnight. Patient is 46yo female with history of bipolar disorder, depression and metastatic colon cancer, comes to ER for evaluation after she felt dizziness. Patient states she was in the hospital last week for chest pain, admitted under Dr. Tila Harris and was recently discharged. While at home, patient attempted to get into the shower and felt an episode of vertiginous dizziness, and reports she felt like "passing out." She also reports an episode of associated palpitation and sharp/stabbing pain in her lung. Otherwise, denies any fever, vision changes, headache, vomiting, and offers no additional medical complaints. Objective - Vital Signs/Intake and Output Vital Signs (last 24 hours): Temp Pulse Resp BP Pulse Ox 97.4 F L 72 20 113/79 95 09/19/17 04:20 09/19/17 04:20 09/19/17 04:20 09/19/17 04:20 09/19/17 04:20 - Medications Medications: Current Medications Aspirin (Aspirin Chewable) 81 mg PO DAILY [facility] Clonazepam (Klonopin) 2 mg PO TID [facility] Diclofenac Sodium (Voltaren) 50 mg PO BID [facility] Duloxetine HCl (Cymbalta) 60 mg PO DAILY [facility] Enoxaparin Sodium (Lovenox) 40 mg SC DAILY [facility] Escitalopram Oxalate (Lexapro) 20 mg PO DAILY [facility] Finasteride (Proscar) 5 mg PO DAILY [facility] Oxycodone HCl (Oxycodone Immediate Release Tab) 15 mg PO Q3H PRN PRN Reason: Pain, moderate (4-7) Last Admin: 09/19/17 05:43 Dose: 15 mg Pantoprazole Sodium (Protonix Ec Tab) 40 mg PO DAILY [facility] Risperidone (Risperdal Tab) 2 mg PO BID [facility] Trazodone HCl (Desyrel) 50 mg PO HS [facility] Last Admin: 09/18/17 21:25 Dose: 50 mg Zolpidem Tartrate (Ambien) 5 mg PO HS [facility] Last Admin: 09/18/17 21:25 Dose: 5 mg - Labs Labs: 09/18/17 13:59 09/18/17 13:59 - Additional Findings Additional findings: - Head Exam Head Exam: ATRAUMATIC, NORMAL INSPECTION, NORMOCEPHALIC - Eye Exam Eye Exam: EOMI, Normal appearance, PERRL Pupil Exam: NORMAL ACCOMODATION, PERRL - ENT Exam ENT Exam: Mucous Membranes Moist, Normal Oropharynx - Respiratory Exam Respiratory Exam: Clear to Ausculation Bilateral, NORMAL BREATHING PATTERN - Cardiovascular Exam Cardiovascular Exam: REGULAR RHYTHM, +S1, +S2 - GI/Abdominal Exam GI & Abdominal Exam: Soft, Normal Bowel Sounds - Extremities Exam Extremities Exam: Full ROM - Back Exam Back Exam: NORMAL INSPECTION. absent: CVA tenderness (L), CVA tenderness (R), paraspinal tenderness - Neurological Exam Neurological Exam: Alert, Awake, Normal Gait, Oriented x3 - Psychiatric Exam Psychiatric exam: Normal Affect, Normal Mood Assessment and Plan - Assessment and Plan (Free Text) Plan: Chest pain, R/o acs Observe on tele Reproducible chest pain Pt with recent normal stress test - stated that chest pain likely not cardiac related. EKG: nsr @ 82, Normal axis, no ST/T changes ROMIs negative x 3 Cardiology consulted, Dr. Jamison, help appreciated - f/u reccs ASA 81mg PO Daily HOLD BB due to low BP Metastatic colon cancer Stage IV; mets to liver and lung Dr. Heath, Hem/Onc consulted - outpatient chemo Lung biopsy on last admission (08/19/17): Metastatic adenocarcinoma. Consistent w colonic primary Oxycodone 15mg PO Q3H PRN for pain Bipolar disorder Risperdal 2mg PO BID Depression Cymbalta 60mg PO Daily Lexapro 20mg PO Daily HTN BP well controlled Will continue to monitor and adjust meds as needed Hx of Anemia of Chronic Disease Hgb stable Monitor Anxiety Klonopin 2mg PO TID Osteoarthritis Voltaren 50mg PO BID Insomnia Trazadone 50mg PO HS Ambien 5mg PO HS PPX Heart healthy Diet Lovenox 40mg SC daily Protonix 40mg PO Daily SCDs Adis Murch PGY-[address] Dionisio Harris
[2017-09-19] MEDS: Pantoprazole 40 mg EC Tab PO SCH (09:46)
[2017-09-19] MEDS: Enoxaparin 40 mg Syringe SC SCH (09:46)
[2017-09-19] MEDS: Diclofenac Sodium Delayed Release 50 mg EC Tab PO SCH ×2 (10:56→19:00)
--- NOTE | 2017-09-19 11:30 | CARD ---
APPROVED REPORT Date of service: 09/18/2017 EKG Measurement Heart [id number] <Conclusion> Normal sinus rhythm Normal ECG
--- NOTE | 2017-09-19 17:04 | CP.PCM.PN ---
Subjective - Date & Time of Evaluation Date of Evaluation: 09/19/17 Time of Evaluation: 11:00 - Subjective Subjective: clinically same Objective - Vital Signs/Intake and Output Vital Signs (last 24 hours): Temp Pulse Resp BP Pulse Ox 97.3 F L 75 18 99/64 L 96 09/19/17 07:30 09/19/17 07:30 09/19/17 07:30 09/19/17 07:30 09/19/17 07:30 Intake and Output: 09/19/17 09/19/17 06:59 18:59 Intake Total 480 Balance 480 - Medications Medications: Current Medications Aspirin (Aspirin Chewable) 81 mg PO DAILY [facility] Last Admin: 09/19/17 09:45 Dose: 81 mg Clonazepam (Klonopin) 2 mg PO TID [facility] Last Admin: 09/19/17 13:01 Dose: 2 mg Diclofenac Sodium (Voltaren) 50 mg PO BID [facility] Last Admin: 09/19/17 10:56 Dose: 50 mg Duloxetine HCl (Cymbalta) 60 mg PO DAILY [facility] Last Admin: 09/19/17 09:47 Dose: 60 mg Enoxaparin Sodium (Lovenox) 40 mg SC DAILY [facility] Last Admin: 09/19/17 09:46 Dose: 40 mg Escitalopram Oxalate (Lexapro) 20 mg PO DAILY [facility] Last Admin: 09/19/17 09:46 Dose: 20 mg Finasteride (Proscar) 5 mg PO DAILY [facility] Last Admin: 09/19/17 10:01 Dose: 5 mg Oxycodone HCl (Oxycodone Immediate Release Tab) 15 mg PO Q3H PRN PRN Reason: Pain, moderate (4-7) Last Admin: 09/19/17 13:08 Dose: 15 mg Pantoprazole Sodium (Protonix Ec Tab) 40 mg PO DAILY [facility] Last Admin: 09/19/17 09:46 Dose: 40 mg Risperidone (Risperdal Tab) 2 mg PO BID [facility] Last Admin: 09/19/17 09:46 Dose: 2 mg Trazodone HCl (Desyrel) 50 mg PO HS [facility] Last Admin: 09/18/17 21:25 Dose: 50 mg Zolpidem Tartrate (Ambien) 5 mg PO HS [facility] Last Admin: 09/18/17 21:25 Dose: 5 mg - Labs Labs: 09/18/17 13:59 09/18/17 13:59 - Constitutional Appears: Well - Head Exam Head Exam: ATRAUMATIC, NORMAL INSPECTION, NORMOCEPHALIC - Eye Exam Eye Exam: EOMI, Normal appearance, PERRL Pupil Exam: NORMAL ACCOMODATION, PERRL - ENT Exam ENT Exam: Mucous Membranes Moist, Normal Exam - Neck Exam Neck Exam: Full ROM, Normal Inspection. absent: Lymphadenopathy - Respiratory Exam Respiratory Exam: Decreased Breath Sounds - Cardiovascular Exam Cardiovascular Exam: REGULAR RHYTHM, +S1, +S2 - GI/Abdominal Exam GI & Abdominal Exam: Soft, Diminished Bowel Sounds - Rectal Exam Rectal Exam: Deferred
--- NOTE | 2017-09-19 21:31 | CP.PCM.CON ---
History of Present Illness - History of Present Illness History of Present Illness: I have been asked by Dr. Tila Harris to provide Cardiology consultation of chest pain and dizziness (Covering for Dr. Lai Jamison) This is a 46 yo woman without significant CV history who is undergoing ongoing treatment for metastatic colon cancer. She was admitted with chest pain and dizziness. She reports that around 9 am the day of admission she developed dizziness with standing. It would last for seconds at a time. There was a sense that the room was spinning. No modifying factors. She spoke with Dr. Harris who advised further evalation and the patient came to the hospital. She reports that getting up and going to bathroom she also feels dizzy. A separate complaint is sharp chest pain on left chest that occurs for minutes at a time. Can happen at rest. Not associated with SOB. PMEDHx: s/p TKR, metastatic colon CA, s/p partial colectomy 2014, depression and bipolar disorder, right chest port, anemia Social Hx: previous tobacco use, previous alcohol use FAmily Hx: NO premature CAD or sudden . Chest CT 09/13/17: NO pulonary embolism. 12mm mass RUL apex EC09/18/17 ST at 100 -11 162/82/475 NSRA Meds: diclofenac, risperdol, traazadone, cymbalta, lexapro, oxycodone and clonapin Head CT 09/04/17: unremarkable LAbs: marked anemia. Review of Systems - Constitutional Constitutional: Fatigue. absent: Fever - EENT Eyes: absent: Diplopia, Discharge Ears: absent: Decreased Hearing Nose/Mouth/Throat: absent: Epistaxis - Cardiovascular Cardiovascular: As Per HPI - Respiratory Respiratory: absent: Cough, Dyspnea - Gastrointestinal Gastrointestinal: absent: Abdominal Pain - Genitourinary Genitourinary: absent: Hematuria - Musculoskeletal Musculoskeletal: absent: Deformity, Joint Swelling Past Patient History - Infectious Disease Hx of Infectious Diseases: None - Past Medical History & Family History Past Medical History?: Yes - Past Social History Smoking Status: Former Smoker - CARDIAC Hx Hypertension: Yes - PULMONARY Hx Asthma: Yes - NEUROLOGICAL Hx Neurological Disorder: No - HEENT Hx HEENT Problems: No - RENAL Hx Chronic Kidney Disease: No - ENDOCRINE/METABOLIC Hx Endocrine Disorders: No - HEMATOLOGICAL/ONCOLOGICAL Hx Anemia: Yes - INTEGUMENTARY Hx Dermatological Problems: No - MUSCULOSKELETAL/RHEUMATOLOGICAL Hx Arthritis: Yes (osteoarthritis) Hx Rheumatoid Arthritis: Yes - GASTROINTESTINAL Hx Gastrointestinal Disorders: Yes Hx Bowel Surgery: Yes Other/Comment: COLON CANCER STAGE 4 WITH CHEMOTHERAPY, last chemo was august 26 2017. R side port a cath - GENITOURINARY/GYNECOLOGICAL Hx Genitourinary Disorders: No - PSYCHIATRIC Hx Anxiety: Yes Hx Bipolar Disorder: Yes Hx Depression: Yes Hx Schizophrenia: Yes Hx Substance Use: No - SURGICAL HISTORY Hx Surgeries: Yes (SEE COMMENT) Hx Orthopedic Surgery: Yes (left knee TKR 03/2017) Hx Tubal Ligation: Yes (2005) Hx Vascular Access Device: Yes (RIGHT SUBCLAVIAN 2014) Other/Comment: colon cancer surgery april 2014 to remove tumor, rt side subclavian Port - ANESTHESIA Hx Anesthesia: Yes Hx Anesthesia Reactions: No Hx Malignant Hyperthermia: No Meds Allergies/Adverse Reactions: Allergies Allergy/AdvReac Type Severity Reaction Status Date / Time No Known Allergies Allergy Verified 09/13/17 13:37 - Medications Medications: Current Medications Aspirin (Aspirin Chewable) 81 mg PO DAILY [facility] Last Admin: 09/19/17 09:45 Dose: 81 mg Clonazepam (Klonopin) 2 mg PO TID [facility] Last Admin: 09/19/17 18:44 Dose: 2 mg Diclofenac Sodium (Voltaren) 50 mg PO BID [facility] Last Admin: 09/19/17 10:56 Dose: 50 mg Duloxetine HCl (Cymbalta) 60 mg PO DAILY [facility] Last Admin: 09/19/17 09:47 Dose: 60 mg Enoxaparin Sodium (Lovenox) 40 mg SC DAILY [facility] Last Admin: 09/19/17 09:46 Dose: 40 mg Escitalopram Oxalate (Lexapro) 20 mg PO DAILY [facility] Last Admin: 09/19/17 09:46 Dose: 20 mg Finasteride (Proscar) 5 mg PO DAILY [facility] Last Admin: 09/19/17 10:01 Dose: 5 mg Oxycodone HCl (Oxycodone Immediate Release Tab) 15 mg PO Q3H PRN PRN Reason: Pain, moderate (4-7) Last Admin: 09/19/17 13:08 Dose: 15 mg Pantoprazole Sodium (Protonix Ec Tab) 40 mg PO DAILY [facility] Last Admin: 09/19/17 09:46 Dose: 40 mg Risperidone (Risperdal Tab) 2 mg PO BID [facility] Last Admin: 09/19/17 18:44 Dose: 2 mg Trazodone HCl (Desyrel) 50 mg PO [facility] Last Admin: 09/18/17 21:25 Dose: 50 mg Zolpidem Tartrate (Ambien) 5 mg PO [facility] Last Admin: 09/18/17 21:25 Dose: 5 mg Physical Exam - Constitutional Appears: Non-toxic - Head Exam Head Exam: ATRAUMATIC, NORMAL INSPECTION - Eye Exam Eye Exam: EOMI, Normal appearance - ENT Exam ENT Exam: Mucous Membranes Moist - Neck Exam Neck exam: Positive for: Normal Inspection - Respiratory Exam Respiratory Exam: NORMAL BREATHING PATTERN - Cardiovascular Exam Cardiovascular Exam: REGULAR RHYTHM. absent: Systolic Murmur - GI/Abdominal Exam GI & Abdominal Exam: Normal Bowel Sounds, Soft - Neurological Exam Neurological exam: Alert, Oriented x3 - Psychiatric Exam Psychiatric exam: Flat Affect - Skin Skin Exam: Dry, Warm Results - Vital Signs Recent Vital Signs: Last Vital Signs Temp 97.4 F L 09/19/17 15:00 Pulse 81 09/19/17 18:44 Resp 20 09/19/17 18:44 BP 115/77 09/19/17 18:44 Pulse Ox 97 09/19/17 15:00 - Labs Result Diagrams: 09/18/17 13:59 09/18/17 13:59 Labs: Laboratory Results - last 24 hr 09/19/17 02:04 Total Creatine Kinase 40 CK-MB (Mass) 0.32 Troponin I < 0.0120 Assessment & Plan - Assessment and Plan (Free Text) Assessment: This is a 46 yo woman with no significant CV history but does have history of metastatic colon cancer with previous colectomy and ongoing chemotherapy, bipolar disorder treated with several psychoactive medications, and marked anemia who was admitted with recurring dizziness and atypical chest discomfort. Dizziness: suggest performing orthostatic. Wean benzodiazapine and narcotic medications as tolerated. Chest CT and head CT unremakrable. Obtain cardiac echo. Some relative hypotension. Avoid diuretics. TSH 0.51 Chest pain: described as sharp left-sided pain at rest. There is some tenderness on left chest .EKG and troponins normal. CTA chest normal. Await cardiac echo.
[2017-09-20] MEDS: oxyCODONE 5 mg Immediate Release Tab PO PRN ×2 (00:51→10:36)
--- NOTE | 2017-09-20 07:30 | CP.PCM.PN ---
Subjective - Date & Time of Evaluation Date of Evaluation: 09/20/17 Time of Evaluation: 07:29 - Subjective Subjective: Progress Note for Dr. Dionisio Harris's Service Patient seen and examined at bedside. Per nursing no acute events occurred overnight. Patient upon examination today reports chest pain that's located mid -sternally, however it's improved since being admitted. She rates the pain a 4/ 5 out 10 in severity. She denies any cough, nausea, shortness of breath, fevers , chills, headaches. 46 year old female with a past medical history of depression colon cancer with metastasis, anemia, s/p partial colectomy (2014), depression, and bipolar disorder who was admitted for dizziness. The patient reports being going to the shower when she felt like the room was spinning and that she would pass out. The patient denies any fevers, chills, abdominal pain, headaches, changes in vision, sick contacts, recent travel, vomiting, nausea, or any other complaints. Past medical history: colon cancer with metastasis, s/p partial colectomy, depression, and bipolar disorder Medications: Past surgcial history: partial colectomy Allergies: Denies Objective - Vital Signs/Intake and Output Vital Signs (last 24 hours): Temp Pulse Resp BP Pulse Ox 97.6 F 84 20 104/72 96 09/20/17 04:20 09/20/17 04:20 09/20/17 04:20 09/20/17 04:20 09/20/17 04:20 Intake and Output: 09/20/17 09/20/17 06:59 18:59 Intake Total 500 Balance 500 - Medications Medications: Current Medications Aspirin (Aspirin Chewable) 81 mg PO DAILY [facility] Last Admin: 09/19/17 09:45 Dose: 81 mg Clonazepam (Klonopin) 2 mg PO TID [facility] Last Admin: 09/19/17 18:44 Dose: 2 mg Diclofenac Sodium (Voltaren) 50 mg PO BID [facility] Last Admin: 09/19/17 19:00 Dose: Not Given Duloxetine HCl (Cymbalta) 60 mg PO DAILY [facility] Last Admin: 09/19/17 09:47 Dose: 60 mg Enoxaparin Sodium (Lovenox) 40 mg SC DAILY [facility] Last Admin: 09/19/17 09:46 Dose: 40 mg Escitalopram Oxalate (Lexapro) 20 mg PO DAILY [facility] Last Admin: 09/19/17 09:46 Dose: 20 mg Finasteride (Proscar) 5 mg PO DAILY [facility] Last Admin: 09/19/17 10:01 Dose: 5 mg Oxycodone HCl (Oxycodone Immediate Release Tab) 15 mg PO Q3H PRN PRN Reason: Pain, moderate (4-7) Last Admin: 09/20/17 00:51 Dose: 15 mg Pantoprazole Sodium (Protonix Ec Tab) 40 mg PO DAILY [facility] Last Admin: 09/19/17 09:46 Dose: 40 mg Risperidone (Risperdal Tab) 2 mg PO BID [facility] Last Admin: 09/19/17 18:44 Dose: 2 mg Trazodone HCl (Desyrel) 50 mg PO [facility] Last Admin: 09/19/17 22:35 Dose: 50 mg Zolpidem Tartrate (Ambien) 5 mg PO [facility] Last Admin: 09/19/17 22:36 Dose: 5 mg - Labs Labs: 09/18/17 13:59 09/18/17 13:59 - Head Exam Head Exam: ATRAUMATIC, NORMAL INSPECTION, NORMOCEPHALIC - Eye Exam Eye Exam: EOMI, Normal appearance, PERRL. absent: Periorbital tenderness Pupil Exam: NORMAL ACCOMODATION, PERRL - ENT Exam ENT Exam: Mucous Membranes Moist, Normal Exam, Normal Oropharynx - Neck Exam Neck Exam: Normal Inspection - Respiratory Exam Respiratory Exam: Clear to Ausculation Bilateral. absent: Chest Wall Tenderness , Prolonged Expiratory Phase, Respiratory Distress - Cardiovascular Exam Cardiovascular Exam: REGULAR RHYTHM, RRR, +S1, +S2. absent: Gallop, Rubs - GI/Abdominal Exam GI & Abdominal Exam: Soft, Normal Bowel Sounds. absent: Rigid, Hyperactive Bowel Sounds - Extremities Exam Extremities Exam: Full ROM, Normal Inspection. absent: Joint Swelling - Back Exam Back Exam: NORMAL INSPECTION. absent: CVA tenderness (L), CVA tenderness (R), paraspinal tenderness - Neurological Exam Neurological Exam: Alert, Awake, CN II-XII Intact, Oriented x3 - Psychiatric Exam Psychiatric exam: Normal Affect, Normal Mood - Skin Skin Exam: Dry, Intact Assessment and Plan - Assessment and Plan (Free Text) Assessment: 46 year old female with a past medical history of colon cancer with metastasis, anemia, and s/p partial colectomy who was admitted for dizziness. Plan: Dizziness -Orthostatics negative . -Echocardiogram taken. Result pending. -Cardiology Dr Simon(Dr. Link ball) consulted. -Wean benzodiazepines and narcotic medications -Await echocardiogram results. History of colon cancer with metastasis to liver -Oncology Dr. Heath consulted. -Expected to begin outpatient chemotherapy upon discharge. History of depression -Cymbalta 60mg PO Daily -Lexapro 20mg PO Daily History of Insomnia -Ambien 5mg PO HS History of Bipolar disorder -Riperidone 2mg PO BID History of anxiety -Klonopin 2mg PO TID History of arthritis -Diclofenac Sodium 50mg PO BID PPX -Protonix 40mg PO Daily -Heart healthy diet Plan discussed with Dr. Dionisio Harris
[2017-09-20 07:59] LABS: BASO % 0.4 % (0.0-2.0); EOS # 0.1 K/uL (0.0-0.7); EOS % 1.6 % (0.0-4.0); HEMOGLOBIN 11.6 g/dL (11.0-16.0); LYMPH % 23.9 % (20.0-40.0); MEAN CELL VOLUME 77.5 fL (81.0-99.0); MEAN CORPUSCULAR HEMOGLOBIN 25.8 pg (27.0-31.0); MEAN CORPUSCULAR HGB CONC 33.4 g/dL (33.0-37.0); MEAN PLATELET VOLUME 9.1 fL (7.2-11.7); MONO # 0.2 K/uL (0.0-0.8); MONO % 5.9 % (0.0-10.0); NEUT # 2.8 K/uL (1.8-7.0); NEUT % 68.2 % (50.0-75.0); NRBC % 0.1 % (0.0-2.0); RBC 4.48 Mil/uL (3.80-5.20); RED CELL DISTRIBUTION WIDTH 19.1 % (11.5-14.5); WHITE BLOOD COUNT 4.1 K/uL (4.8-10.8)
[2017-09-20 08:30] LABS: BLOOD UREA NITROGEN 14 mg/dL (7-17); GFR AFRICAN-AMERICAN > 60; GFR NON-AFRICAN AMERICAN > 60
[2017-09-20] MEDS: Enoxaparin 40 mg Syringe SC SCH (10:31)
[2017-09-20] MEDS: Pantoprazole 40 mg EC Tab PO SCH (10:31)
--- NOTE | 2017-09-20 12:54 | CP.PCM.PN ---
Subjective - Date & Time of Evaluation Date of Evaluation: 09/19/17 Time of Evaluation: 14:20 - Subjective Subjective: Feels dizzy Objective - Vital Signs/Intake and Output Vital Signs (last 24 hours): Temp Pulse Resp BP Pulse Ox 97.5 F L 66 18 115/76 97 09/20/17 07:10 09/20/17 08:00 09/20/17 07:10 09/20/17 07:10 09/20/17 07:10 Intake and Output: 09/20/17 09/20/17 06:59 18:59 Intake Total 500 Balance 500 - Medications Medications: Current Medications Aspirin (Aspirin Chewable) 81 mg PO DAILY [facility] Last Admin: 09/20/17 10:31 Dose: 81 mg Clonazepam (Klonopin) 2 mg PO TID [facility] Last Admin: 09/20/17 10:31 Dose: 2 mg Diclofenac Sodium (Voltaren) 50 mg PO BID [facility] Last Admin: 09/19/17 19:00 Dose: Not Given Duloxetine HCl (Cymbalta) 60 mg PO DAILY [facility] Last Admin: 09/20/17 10:32 Dose: 60 mg Enoxaparin Sodium (Lovenox) 40 mg SC DAILY [facility] Last Admin: 09/20/17 10:31 Dose: 40 mg Escitalopram Oxalate (Lexapro) 20 mg PO DAILY [facility] Last Admin: 09/20/17 10:32 Dose: 20 mg Finasteride (Proscar) 5 mg PO DAILY [facility] Last Admin: 09/20/17 10:31 Dose: 5 mg Oxycodone HCl (Oxycodone Immediate Release Tab) 15 mg PO Q3H PRN PRN Reason: Pain, moderate (4-7) Last Admin: 09/20/17 10:36 Dose: 15 mg Pantoprazole Sodium (Protonix Ec Tab) 40 mg PO DAILY [facility] Last Admin: 09/20/17 10:31 Dose: 40 mg Risperidone (Risperdal Tab) 2 mg PO BID [facility] Last Admin: 09/20/17 10:31 Dose: 2 mg Trazodone HCl (Desyrel) 50 mg PO HS [facility] Last Admin: 09/19/17 22:35 Dose: 50 mg Zolpidem Tartrate (Ambien) 5 mg PO HS [facility] Last Admin: 09/19/17 22:36 Dose: 5 mg - Labs Labs: 09/20/17 07:48 07/27/18 07:48 - Head Exam Head Exam: ATRAUMATIC - Eye Exam Eye Exam: Normal appearance - ENT Exam ENT Exam: Mucous Membranes Dry - Respiratory Exam Respiratory Exam: NORMAL BREATHING PATTERN - Cardiovascular Exam Cardiovascular Exam: +S1, +S2 - GI/Abdominal Exam GI & Abdominal Exam: Normal Bowel Sounds Assessment and Plan (1) Colon cancer Assessment & Plan: stage IV liver and lung metastasis outpatient chemotherapy Status: Acute
--- NOTE | 2017-09-20 12:55 | CP.PCM.PN ---
Subjective - Date & Time of Evaluation Date of Evaluation: 09/20/17 Time of Evaluation: 12:10 - Subjective Subjective: Feels dizzy when standing too long Objective - Vital Signs/Intake and Output Vital Signs (last 24 hours): Temp Pulse Resp BP Pulse Ox 97.5 F L 66 18 115/76 97 09/20/17 07:10 09/20/17 08:00 09/20/17 07:10 09/20/17 07:10 09/20/17 07:10 Intake and Output: 09/20/17 09/20/17 06:59 18:59 Intake Total 500 Balance 500 - Medications Medications: Current Medications Aspirin (Aspirin Chewable) 81 mg PO DAILY [facility] Last Admin: 09/20/17 10:31 Dose: 81 mg Clonazepam (Klonopin) 2 mg PO TID [facility] Last Admin: 09/20/17 10:31 Dose: 2 mg Diclofenac Sodium (Voltaren) 50 mg PO BID [facility] Last Admin: 09/19/17 19:00 Dose: Not Given Duloxetine HCl (Cymbalta) 60 mg PO DAILY [facility] Last Admin: 09/20/17 10:32 Dose: 60 mg Enoxaparin Sodium (Lovenox) 40 mg SC DAILY [facility] Last Admin: 09/20/17 10:31 Dose: 40 mg Escitalopram Oxalate (Lexapro) 20 mg PO DAILY [facility] Last Admin: 09/20/17 10:32 Dose: 20 mg Finasteride (Proscar) 5 mg PO DAILY [facility] Last Admin: 09/20/17 10:31 Dose: 5 mg Oxycodone HCl (Oxycodone Immediate Release Tab) 15 mg PO Q3H PRN PRN Reason: Pain, moderate (4-7) Last Admin: 09/20/17 10:36 Dose: 15 mg Pantoprazole Sodium (Protonix Ec Tab) 40 mg PO DAILY [facility] Last Admin: 09/20/17 10:31 Dose: 40 mg Risperidone (Risperdal Tab) 2 mg PO BID [facility] Last Admin: 09/20/17 10:31 Dose: 2 mg Trazodone HCl (Desyrel) 50 mg PO HS [facility] Last Admin: 09/19/17 22:35 Dose: 50 mg Zolpidem Tartrate (Ambien) 5 mg PO HS [facility] Last Admin: 09/19/17 22:36 Dose: 5 mg - Labs Labs: 09/20/17 07:48 09/20/17 07:48 - Head Exam Head Exam: ATRAUMATIC - Eye Exam Eye Exam: Normal appearance - ENT Exam ENT Exam: Mucous Membranes Dry - Respiratory Exam Respiratory Exam: NORMAL BREATHING PATTERN - Cardiovascular Exam Cardiovascular Exam: +S1, +S2 - GI/Abdominal Exam GI & Abdominal Exam: Normal Bowel Sounds Assessment and Plan (1) Colon cancer Assessment & Plan: stage IV lung and liver metastasis outpatient chemotherapy Status: Acute
[2017-09-20] MEDS: Diclofenac Sodium Delayed Release 50 mg EC Tab PO SCH ×2 (13:47→21:56)
[2017-09-20 16:20] VITALS: RESP 20
--- NOTE | 2017-09-20 19:09 | CP.PCM.PN ---
Subjective - Date & Time of Evaluation Date of Evaluation: 09/20/17 Time of Evaluation: 10:40 - Subjective Subjective: clinically same Objective - Vital Signs/Intake and Output Vital Signs (last 24 hours): Temp Pulse Resp BP Pulse Ox 97.8 F 78 20 120/78 98 09/20/17 15:00 09/20/17 18:33 09/20/17 15:00 09/20/17 15:00 09/20/17 15:00 - Medications Medications: Current Medications Aspirin (Aspirin Chewable) 81 mg PO DAILY [facility] Last Admin: 09/20/17 10:31 Dose: 81 mg Clonazepam (Klonopin) 2 mg PO TID [facility] Last Admin: 09/20/17 17:49 Dose: 2 mg Diclofenac Sodium (Voltaren) 50 mg PO BID [facility] Last Admin: 09/20/17 13:47 Dose: 50 mg Duloxetine HCl (Cymbalta) 60 mg PO DAILY [facility] Last Admin: 09/20/17 10:32 Dose: 60 mg Enoxaparin Sodium (Lovenox) 40 mg SC DAILY [facility] Last Admin: 09/20/17 10:31 Dose: 40 mg Escitalopram Oxalate (Lexapro) 20 mg PO DAILY [facility] Last Admin: 09/20/17 10:32 Dose: 20 mg Finasteride (Proscar) 5 mg PO DAILY [facility] Last Admin: 09/20/17 10:31 Dose: 5 mg Oxycodone HCl (Oxycodone Immediate Release Tab) 15 mg PO Q3H PRN PRN Reason: Pain, moderate (4-7) Last Admin: 09/20/17 10:36 Dose: 15 mg Pantoprazole Sodium (Protonix Ec Tab) 40 mg PO DAILY [facility] Last Admin: 09/20/17 10:31 Dose: 40 mg Risperidone (Risperdal Tab) 2 mg PO BID [facility] Last Admin: 09/20/17 18:45 Dose: 2 mg Trazodone HCl (Desyrel) 50 mg PO HS [facility] Last Admin: 09/19/17 22:35 Dose: 50 mg Zolpidem Tartrate (Ambien) 5 mg PO HS [facility] Last Admin: 09/19/17 22:36 Dose: 5 mg - Labs Labs: 09/20/17 07:48 09/20/17 07:48 - Constitutional Appears: Well - Head Exam Head Exam: ATRAUMATIC, NORMAL INSPECTION, NORMOCEPHALIC - Eye Exam Eye Exam: EOMI, Normal appearance, PERRL Pupil Exam: NORMAL ACCOMODATION, PERRL - ENT Exam ENT Exam: Mucous Membranes Moist, Normal Exam - Neck Exam Neck Exam: Full ROM, Normal Inspection. absent: Lymphadenopathy - Respiratory Exam Respiratory Exam: Decreased Breath Sounds - Cardiovascular Exam Cardiovascular Exam: REGULAR RHYTHM, +S1, +S2 - GI/Abdominal Exam GI & Abdominal Exam: Soft, Diminished Bowel Sounds - Rectal Exam Rectal Exam: Deferred
[2017-09-21] MEDS: oxyCODONE 5 mg Immediate Release Tab PO PRN ×3 (01:06→22:39)
[2017-09-21] MEDS: Pantoprazole 40 mg EC Tab PO SCH (10:47)
[2017-09-21] MEDS: Diclofenac Sodium Delayed Release 50 mg EC Tab PO SCH ×2 (10:48→17:34)
[2017-09-21] MEDS: Enoxaparin 40 mg Syringe SC SCH (10:48)
--- NOTE | 2017-09-21 13:57 | CARD ---
APPROVED REPORT Date of service: 09/20/2017 EXAM: Two-dimensional and M-mode echocardiogram with Doppler and color Doppler. Other Information Quality : GoodRhythm : INDICATION Dyspnea Chest Pain RISK FACTORS Hypertension 2D DIMENSIONS IVSd0.9 (0.7-1.1cm)LVDd4.7 (3.9-5.9cm) LVOT Diameter2.0 (1.8-2.4cm)PWd1.1 (0.7-1.1cm) LVDs3.3 (2.5-4.0cm)FS (%) 30.0 % LVEF (%)57.3 (>50%) M-Mode DIMENSIONS Left Atrium (MM)3.89 (2.5-4.0cm)IVSd1.18 (0.7-1.1cm) Aortic Root3.30 (2.2-3.7cm)LVDd4.55 (4.0-5.6cm) Aortic Cusp Exc.2.34 (1.5-2.0cm)PWd1.06 (0.7-1.1cm) FS (%) 29 %LVDs3.25 (2.0-3.8cm) LVEF (%)55 (>50%) Mitral Valve MV E Xzghfhxl16.2cm/sMV A Jpfibhgx89.7cm/sE/A ratio1.1 TDI E/Lateral E'0.0E/Medial E'0.0 Tricuspid Valve TR Peak [id number]/sTR Peak Gr.[id number] LEFT VENTRICLE The left ventricle is normal size. There is normal left ventricular wall thickness. The Ejection Fraction is 60-65%. There is normal LV segmental wall motion. The left ventricular diastolic function is normal. RIGHT VENTRICLE The right ventricle is normal size. The right ventricular systolic function is normal. ATRIA The left atrium size is normal. The right atrium size is normal. There is a small secundum type atrial septal defect. AORTIC VALVE The aortic valve is normal in structure. No aortic regurgitation is present. MITRAL VALVE The mitral valve is normal in structure. Mitral regurgitation is trace. TRICUSPID VALVE The tricuspid valve is normal in structure. There is mild tricuspid regurgitation. Right ventricular systolic pressure is estimated at 29 mmHg. There is no pulmonary hypertension. PULMONIC VALVE The pulmonary valve is normal in structure. GREAT VESSELS The aortic root is normal size. The aortic root displays mild sclerocalcific changes of the aortic root. The IVC is normal in size and collapses >50% with inspiration. PERICARDIAL EFFUSION There is no pericardial effusion. <Conclusion> The left ventricle is normal size. The Ejection Fraction is 60-65%. The left ventricular diastolic function is normal. The left atrium size is normal. There is a small secundum type atrial septal defect. There is mild tricuspid regurgitation. Right ventricular systolic pressure is estimated at 29 mmHg. There is no pulmonary hypertension. The aortic root is normal size. The aortic root displays mild sclerocalcific changes of the aortic root. There is no pericardial effusion.
--- NOTE | 2017-09-21 18:19 | CP.PCM.PN ---
Subjective - Date & Time of Evaluation Date of Evaluation: 09/21/17 Time of Evaluation: 11:20 - Subjective Subjective: clinically same Objective - Vital Signs/Intake and Output Vital Signs (last 24 hours): Temp Pulse Resp BP Pulse Ox 97.4 F L 85 20 112/78 97 09/21/17 15:05 09/21/17 15:41 09/21/17 15:05 09/21/17 15:05 09/21/17 16:00 Intake and Output: 09/21/17 09/21/17 06:59 18:59 Intake Total 600 Balance 600 - Medications Medications: Current Medications Aspirin (Aspirin Chewable) 81 mg PO DAILY [facility] Last Admin: 09/21/17 10:46 Dose: 81 mg Clonazepam (Klonopin) 2 mg PO TID [facility] Last Admin: 09/21/17 17:34 Dose: 2 mg Diclofenac Sodium (Voltaren) 50 mg PO BID [facility] Last Admin: 09/21/17 17:34 Dose: 50 mg Duloxetine HCl (Cymbalta) 60 mg PO DAILY [facility] Last Admin: 09/21/17 10:47 Dose: 60 mg Enoxaparin Sodium (Lovenox) 40 mg SC DAILY [facility] Last Admin: 09/21/17 10:48 Dose: 40 mg Escitalopram Oxalate (Lexapro) 20 mg PO DAILY [facility] Last Admin: 09/21/17 10:47 Dose: 20 mg Finasteride (Proscar) 5 mg PO DAILY [facility] Last Admin: 09/21/17 10:47 Dose: 5 mg Oxycodone HCl (Oxycodone Immediate Release Tab) 15 mg PO Q3H PRN PRN Reason: Pain, moderate (4-7) Last Admin: 09/21/17 12:24 Dose: 15 mg Pantoprazole Sodium (Protonix Ec Tab) 40 mg PO DAILY [facility] Last Admin: 09/21/17 10:47 Dose: 40 mg Risperidone (Risperdal Tab) 2 mg PO BID [facility] Last Admin: 09/21/17 17:35 Dose: 2 mg Trazodone HCl (Desyrel) 50 mg PO HS [facility] Last Admin: 09/20/17 21:51 Dose: 50 mg Zolpidem Tartrate (Ambien) 5 mg PO HS [facility] Last Admin: 09/20/17 22:43 Dose: 5 mg - Labs Labs: 09/20/17 07:48 09/20/17 07:48 - Constitutional Appears: Well - Head Exam Head Exam: ATRAUMATIC, NORMAL INSPECTION, NORMOCEPHALIC - Eye Exam Eye Exam: EOMI, Normal appearance, PERRL Pupil Exam: NORMAL ACCOMODATION, PERRL - ENT Exam ENT Exam: Mucous Membranes Moist, Normal Exam - Neck Exam Neck Exam: Full ROM, Normal Inspection. absent: Lymphadenopathy - Respiratory Exam Respiratory Exam: Decreased Breath Sounds - Cardiovascular Exam Cardiovascular Exam: REGULAR RHYTHM, +S1, +S2 - GI/Abdominal Exam GI & Abdominal Exam: Soft, Diminished Bowel Sounds - Rectal Exam Rectal Exam: Deferred
[2017-09-22] MEDS: oxyCODONE 5 mg Immediate Release Tab PO PRN ×3 (03:41→19:22)
[2017-09-22] MEDS: Enoxaparin 40 mg Syringe SC SCH (10:46)
[2017-09-22] MEDS: Diclofenac Sodium Delayed Release 50 mg EC Tab PO SCH ×2 (10:47→17:45)
[2017-09-22] MEDS: Pantoprazole 40 mg EC Tab PO SCH (10:47)
--- NOTE | 2017-09-22 14:50 | CP.PCM.PN ---
Subjective - Date & Time of Evaluation Date of Evaluation: 09/22/17 Time of Evaluation: 12:00 - Subjective Subjective: clinically same Objective - Vital Signs/Intake and Output Vital Signs (last 24 hours): Temp Pulse Resp BP Pulse Ox 97 F L 95 H 20 107/75 99 09/22/17 07:00 09/22/17 07:00 09/22/17 07:00 09/22/17 07:00 09/22/17 07:00 - Medications Medications: Current Medications Aspirin (Aspirin Chewable) 81 mg PO DAILY [facility] Last Admin: 09/22/17 10:46 Dose: 81 mg Clonazepam (Klonopin) 2 mg PO TID [facility] Last Admin: 09/22/17 13:43 Dose: 2 mg Diclofenac Sodium (Voltaren) 50 mg PO BID [facility] Last Admin: 09/22/17 10:47 Dose: 50 mg Duloxetine HCl (Cymbalta) 60 mg PO DAILY [facility] Last Admin: 09/22/17 10:47 Dose: 60 mg Enoxaparin Sodium (Lovenox) 40 mg SC DAILY [facility] Last Admin: 09/22/17 10:46 Dose: 40 mg Escitalopram Oxalate (Lexapro) 20 mg PO DAILY [facility] Last Admin: 09/22/17 10:47 Dose: 20 mg Finasteride (Proscar) 5 mg PO DAILY [facility] Last Admin: 09/22/17 10:46 Dose: 5 mg Oxycodone HCl (Oxycodone Immediate Release Tab) 15 mg PO Q3H PRN PRN Reason: Pain, moderate (4-7) Last Admin: 09/22/17 11:21 Dose: 15 mg Pantoprazole Sodium (Protonix Ec Tab) 40 mg PO DAILY [facility] Last Admin: 09/22/17 10:47 Dose: 40 mg Risperidone (Risperdal Tab) 2 mg PO BID [facility] Last Admin: 09/22/17 10:46 Dose: 2 mg Trazodone HCl (Desyrel) 50 mg PO HS [facility] Last Admin: 09/21/17 22:36 Dose: 50 mg Zolpidem Tartrate (Ambien) 5 mg PO HS [facility] Last Admin: 09/21/17 22:36 Dose: 5 mg - Labs Labs: 09/20/17 07:48 09/20/17 07:48 - Constitutional Appears: Well - Head Exam Head Exam: ATRAUMATIC, NORMAL INSPECTION, NORMOCEPHALIC - Eye Exam Eye Exam: EOMI, Normal appearance, PERRL Pupil Exam: NORMAL ACCOMODATION, PERRL - ENT Exam ENT Exam: Mucous Membranes Moist, Normal Exam - Neck Exam Neck Exam: Full ROM, Normal Inspection. absent: Lymphadenopathy - Respiratory Exam Respiratory Exam: Decreased Breath Sounds - Cardiovascular Exam Cardiovascular Exam: REGULAR RHYTHM, +S1, +S2 - GI/Abdominal Exam GI & Abdominal Exam: Soft, Diminished Bowel Sounds - Rectal Exam Rectal Exam: Deferred
--- NOTE | 2017-09-22 22:10 | CP.PCM.PN ---
Subjective - Date & Time of Evaluation Date of Evaluation: 09/21/17 Time of Evaluation: 18:00 - Subjective Subjective: Continues to feel dizzy Objective - Vital Signs/Intake and Output Vital Signs (last 24 hours): Temp Pulse Resp BP Pulse Ox 97.3 F L 79 20 104/69 97 09/22/17 15:49 09/22/17 16:27 09/22/17 15:49 09/22/17 15:49 09/22/17 15:49 - Medications Medications: Current Medications Aspirin (Aspirin Chewable) 81 mg PO DAILY [facility] Last Admin: 09/22/17 10:46 Dose: 81 mg Clonazepam (Klonopin) 2 mg PO TID [facility] Last Admin: 09/22/17 17:45 Dose: 2 mg Diclofenac Sodium (Voltaren) 50 mg PO BID [facility] Last Admin: 09/22/17 17:45 Dose: 50 mg Duloxetine HCl (Cymbalta) 60 mg PO DAILY [facility] Last Admin: 09/22/17 10:47 Dose: 60 mg Enoxaparin Sodium (Lovenox) 40 mg SC DAILY [facility] Last Admin: 09/22/17 10:46 Dose: 40 mg Escitalopram Oxalate (Lexapro) 20 mg PO DAILY [facility] Last Admin: 09/22/17 10:47 Dose: 20 mg Finasteride (Proscar) 5 mg PO DAILY [facility] Last Admin: 09/22/17 10:46 Dose: 5 mg Oxycodone HCl (Oxycodone Immediate Release Tab) 15 mg PO Q3H PRN PRN Reason: Pain, moderate (4-7) Last Admin: 09/22/17 19:22 Dose: 15 mg Pantoprazole Sodium (Protonix Ec Tab) 40 mg PO DAILY [facility] Last Admin: 09/22/17 10:47 Dose: 40 mg Risperidone (Risperdal Tab) 2 mg PO BID [facility] Last Admin: 09/22/17 17:45 Dose: 2 mg Trazodone HCl (Desyrel) 50 mg PO HS [facility] Last Admin: 09/21/17 22:36 Dose: 50 mg Zolpidem Tartrate (Ambien) 5 mg PO HS [facility] Last Admin: 09/21/17 22:36 Dose: 5 mg - Labs Labs: 09/20/17 07:48 09/20/17 07:48 - Head Exam Head Exam: ATRAUMATIC - Eye Exam Eye Exam: Normal appearance - ENT Exam ENT Exam: Mucous Membranes Dry - Respiratory Exam Respiratory Exam: NORMAL BREATHING PATTERN - Cardiovascular Exam Cardiovascular Exam: +S1, +S2 - GI/Abdominal Exam GI & Abdominal Exam: Normal Bowel Sounds Assessment and Plan (1) Colon cancer Assessment & Plan: stage IV liver and lung metastasis outpatient treatment Status: Acute
[2017-09-23] MEDS: oxyCODONE 5 mg Immediate Release Tab PO PRN ×3 (03:00→19:56)
[2017-09-23] MEDS: Diclofenac Sodium Delayed Release 50 mg EC Tab PO SCH ×2 (10:10→17:08)
[2017-09-23] MEDS: Pantoprazole 40 mg EC Tab PO SCH (10:10)
[2017-09-23] MEDS: Enoxaparin 40 mg Syringe SC SCH (10:11)
--- NOTE | 2017-09-23 14:44 | CP.PCM.PN ---
Subjective - Date & Time of Evaluation Date of Evaluation: 09/23/17 Time of Evaluation: 14:44 - Subjective Subjective: Progress Note for Dr. Dionisio Harris's Service Patient seen and examined at bedside. Per nursing no acute events occurred overnight. Patient upon examination today reports chest pain that's located mid -sternally, and remains about the same as yesterday She also reports some dizziness today when laying flat. She rates the pain a 4/5 out 10 in severity. She denies any cough, nausea, shortness of breath, fevers, chills, headaches. Objective - Vital Signs/Intake and Output Vital Signs (last 24 hours): Temp Pulse Resp BP Pulse Ox 97.4 F L 78 20 121/83 95 09/23/17 07:00 09/23/17 11:43 09/23/17 07:00 09/23/17 07:00 09/23/17 07:00 - Medications Medications: Current Medications Aspirin (Aspirin Chewable) 81 mg PO DAILY [facility] Last Admin: 09/23/17 10:11 Dose: 81 mg Clonazepam (Klonopin) 2 mg PO TID [facility] Last Admin: 09/23/17 13:11 Dose: 2 mg Diclofenac Sodium (Voltaren) 50 mg PO BID [facility] Last Admin: 09/23/17 10:10 Dose: 50 mg Duloxetine HCl (Cymbalta) 60 mg PO DAILY [facility] Last Admin: 09/23/17 10:10 Dose: 60 mg Enoxaparin Sodium (Lovenox) 40 mg SC DAILY [facility] Last Admin: 09/23/17 10:11 Dose: 40 mg Escitalopram Oxalate (Lexapro) 20 mg PO DAILY [facility] Last Admin: 09/23/17 10:10 Dose: 20 mg Finasteride (Proscar) 5 mg PO DAILY [facility] Last Admin: 09/23/17 10:23 Dose: 5 mg Oxycodone HCl (Oxycodone Immediate Release Tab) 15 mg PO Q3H PRN PRN Reason: Pain, moderate (4-7) Last Admin: 09/23/17 14:31 Dose: 15 mg Pantoprazole Sodium (Protonix Ec Tab) 40 mg PO DAILY [facility] Last Admin: 09/23/17 10:10 Dose: 40 mg Risperidone (Risperdal Tab) 2 mg PO BID [facility] Last Admin: 09/23/17 10:10 Dose: 2 mg Trazodone HCl (Desyrel) 50 mg PO [facility] Last Admin: 09/22/17 22:19 Dose: 50 mg Zolpidem Tartrate (Ambien) 5 mg PO [facility] Last Admin: 09/22/17 22:19 Dose: 5 mg - Labs Labs: 09/20/17 07:48 09/20/17 07:48 - Head Exam Head Exam: ATRAUMATIC, NORMAL INSPECTION, NORMOCEPHALIC - Eye Exam Eye Exam: EOMI, Normal appearance, PERRL. absent: Periorbital tenderness - Respiratory Exam Respiratory Exam: Clear to Ausculation Bilateral, NORMAL BREATHING PATTERN - Cardiovascular Exam Cardiovascular Exam: REGULAR RHYTHM, +S1, +S2 - GI/Abdominal Exam GI & Abdominal Exam: Normal Bowel Sounds - Extremities Exam Extremities Exam: Full ROM, Normal Inspection. absent: Joint Swelling, Pedal Edema, Tenderness - Back Exam Back Exam: NORMAL INSPECTION. absent: CVA tenderness (L), CVA tenderness (R), paraspinal tenderness - Neurological Exam Neurological Exam: Alert, Awake, CN II-XII Intact, Normal Gait, Oriented x3 - Psychiatric Exam Psychiatric exam: Normal Affect, Normal Mood. absent: Anxious, Depressed - Skin Skin Exam: Dry, Intact, Normal Color Assessment and Plan - Assessment and Plan (Free Text) Assessment: 46 year old female with a past medical history of colon cancer with metastasis, anemia, and s/p partial colectomy who was admitted for dizziness. Plan: Dizziness -Orthostatics negative . -Echocardiogram taken :EF 60-65%, Mild triscuspid regurgitation -Cardiology Dr Simon(Dr. Link ball) consulted. -Wean benzodiazepines and narcotic medications -Await echocardiogram results. -PT/OT Ordered. History of colon cancer with metastasis to liver -Oncology Dr. Heath consulted. -Expected to begin outpatient chemotherapy upon discharge. History of depression -Cymbalta 60mg PO Daily -Lexapro 20mg PO Daily History of Insomnia -Ambien 5mg PO HS -tRAZODONE 50mg PO HS History of Bipolar disorder -Riperidone 2mg PO BID History of anxiety -Klonopin 2mg PO TID History of arthritis -Diclofenac Sodium 50mg PO BID -Oxycodone 15mg PO Q3H PRN PPX -Lovenox 40mg SC Daily -Protonix 40mg PO Daily -Heart healthy diet Plan discussed with Dr. Dionisio Harris Disposition: PT/OT consulted for dizziness. Will await recommendations. Expected to be discharged to [place] tomorrow. Matthew Montes, PGY-2
--- NOTE | 2017-09-23 19:13 | CP.PCM.PN ---
Subjective - Date & Time of Evaluation Date of Evaluation: 09/23/17 Time of Evaluation: 10:40 - Subjective Subjective: clinically same Objective - Vital Signs/Intake and Output Vital Signs (last 24 hours): Temp Pulse Resp BP Pulse Ox 97.3 F L 80 20 116/80 100 09/23/17 16:00 09/23/17 16:00 09/23/17 16:00 09/23/17 16:00 09/23/17 16:00 - Medications Medications: Current Medications Aspirin (Aspirin Chewable) 81 mg PO DAILY [facility] Last Admin: 09/23/17 10:11 Dose: 81 mg Clonazepam (Klonopin) 2 mg PO TID [facility] Last Admin: 09/23/17 17:08 Dose: 2 mg Diclofenac Sodium (Voltaren) 50 mg PO BID [facility] Last Admin: 09/23/17 17:08 Dose: 50 mg Duloxetine HCl (Cymbalta) 60 mg PO DAILY [facility] Last Admin: 09/23/17 10:10 Dose: 60 mg Enoxaparin Sodium (Lovenox) 40 mg SC DAILY [facility] Last Admin: 09/23/17 10:11 Dose: 40 mg Escitalopram Oxalate (Lexapro) 20 mg PO DAILY [facility] Last Admin: 09/23/17 10:10 Dose: 20 mg Finasteride (Proscar) 5 mg PO DAILY [facility] Last Admin: 09/23/17 10:23 Dose: 5 mg Oxycodone HCl (Oxycodone Immediate Release Tab) 15 mg PO Q3H PRN PRN Reason: Pain, moderate (4-7) Last Admin: 09/23/17 14:31 Dose: 15 mg Pantoprazole Sodium (Protonix Ec Tab) 40 mg PO DAILY [facility] Last Admin: 09/23/17 10:10 Dose: 40 mg Risperidone (Risperdal Tab) 2 mg PO BID [facility] Last Admin: 09/23/17 17:08 Dose: 2 mg Trazodone HCl (Desyrel) 50 mg PO HS [facility] Last Admin: 09/22/17 22:19 Dose: 50 mg Zolpidem Tartrate (Ambien) 5 mg PO HS [facility] Last Admin: 09/22/17 22:19 Dose: 5 mg - Labs Labs: 09/20/17 07:48 09/20/17 07:48 - Constitutional Appears: Well - Head Exam Head Exam: ATRAUMATIC, NORMAL INSPECTION, NORMOCEPHALIC - Eye Exam Eye Exam: EOMI, Normal appearance, PERRL Pupil Exam: NORMAL ACCOMODATION, PERRL - ENT Exam ENT Exam: Mucous Membranes Moist, Normal Exam - Neck Exam Neck Exam: Full ROM, Normal Inspection. absent: Lymphadenopathy - Respiratory Exam Respiratory Exam: Decreased Breath Sounds - Cardiovascular Exam Cardiovascular Exam: REGULAR RHYTHM, +S1, +S2 - GI/Abdominal Exam GI & Abdominal Exam: Soft, Diminished Bowel Sounds - Rectal Exam Rectal Exam: Deferred
[2017-09-24] MEDS: oxyCODONE 5 mg Immediate Release Tab PO PRN ×3 (02:48→16:15)
--- NOTE | 2017-09-24 10:19 | CP.PCM.PN ---
Subjective - Date & Time of Evaluation Date of Evaluation: 09/24/17 Time of Evaluation: 10:20 - Subjective Subjective: Progress Note for Dr. Dionisio Harris's Service Patient seen and examined at bedside. Per nursing no acute events occurred overnight. Patient upon examination today reports less chest pain today, that' s located mid-sternally with no radiation. She also reports some dizziness today when laying flat. She rates the pain a 3 out 10 in severity. She denies any cough, nausea, shortness of breath, fevers, chills, headaches. Objective - Vital Signs/Intake and Output Vital Signs (last 24 hours): Temp Pulse Resp BP Pulse Ox 97.4 F L 74 20 115/78 97 09/24/17 06:41 09/24/17 07:28 09/24/17 06:41 09/24/17 06:41 09/24/17 06:41 - Medications Medications: Current Medications Aspirin (Aspirin Chewable) 81 mg PO DAILY [facility] Last Admin: 09/23/17 10:11 Dose: 81 mg Clonazepam (Klonopin) 2 mg PO TID [facility] Last Admin: 09/23/17 17:08 Dose: 2 mg Diclofenac Sodium (Voltaren) 50 mg PO BID [facility] Last Admin: 09/23/17 17:08 Dose: 50 mg Duloxetine HCl (Cymbalta) 60 mg PO DAILY [facility] Last Admin: 09/23/17 10:10 Dose: 60 mg Enoxaparin Sodium (Lovenox) 40 mg SC DAILY [facility] Last Admin: 09/23/17 10:11 Dose: 40 mg Escitalopram Oxalate (Lexapro) 20 mg PO DAILY [facility] Last Admin: 09/23/17 10:10 Dose: 20 mg Finasteride (Proscar) 5 mg PO DAILY [facility] Last Admin: 09/23/17 10:23 Dose: 5 mg Oxycodone HCl (Oxycodone Immediate Release Tab) 15 mg PO Q3H PRN PRN Reason: Pain, moderate (4-7) Last Admin: 09/24/17 02:48 Dose: 15 mg Pantoprazole Sodium (Protonix Ec Tab) 40 mg PO DAILY [facility] Last Admin: 09/23/17 10:10 Dose: 40 mg Risperidone (Risperdal Tab) 2 mg PO BID [facility] Last Admin: 09/23/17 17:08 Dose: 2 mg Trazodone HCl (Desyrel) 50 mg PO HS [facility] Last Admin: 09/23/17 21:39 Dose: 50 mg Zolpidem Tartrate (Ambien) 5 mg PO [facility] Last Admin: 09/23/17 21:39 Dose: 5 mg - Labs Labs: 09/20/17 07:48 09/20/17 07:48 - Head Exam Head Exam: ATRAUMATIC, NORMAL INSPECTION, NORMOCEPHALIC - Eye Exam Eye Exam: EOMI, Normal appearance, PERRL Pupil Exam: NORMAL ACCOMODATION, PERRL. absent: Irregular, Unequal - ENT Exam ENT Exam: Mucous Membranes Moist, Normal Oropharynx - Respiratory Exam Respiratory Exam: Clear to Ausculation Bilateral, NORMAL BREATHING PATTERN. absent: Chest Wall Tenderness, Prolonged Expiratory Phase, Respiratory Distress - Cardiovascular Exam Cardiovascular Exam: REGULAR RHYTHM, +S1, +S2 - GI/Abdominal Exam GI & Abdominal Exam: Soft, Normal Bowel Sounds. absent: Hyperactive Bowel Sounds - Neurological Exam Neurological Exam: Alert, Awake, CN II-XII Intact, Normal Gait, Oriented x3 - Psychiatric Exam Psychiatric exam: Normal Affect, Normal Mood - Skin Skin Exam: Dry, Intact, Normal Color Assessment and Plan - Assessment and Plan (Free Text) Assessment: 46 year old female with a past medical history of colon cancer with metastasis, anemia, and s/p partial colectomy who was admitted for dizziness. Plan: Dizziness -Orthostatics negative . -Echocardiogram (09/20/17) :EF 60-65%, Mild triscuspid regurgitation -Cardiology Dr Simon(Dr. Link ball) consulted. -Wean benzodiazepines and narcotic medications -PT/Ot :Recommends home. History of colon cancer with metastasis to liver -Oncology Dr. Heath consulted. -Expected to begin outpatient chemotherapy upon discharge. History of depression -Cymbalta 60mg PO Daily -Lexapro 20mg PO Daily History of Insomnia -Ambien 5mg PO HS -tRAZODONE 50mg PO HS History of Bipolar disorder -Riperidone 2mg PO BID History of anxiety -Klonopin 2mg PO TID History of arthritis -Diclofenac Sodium 50mg PO BID -Oxycodone 15mg PO Q3H PRN PPX -Lovenox 40mg SC Daily -Protonix 40mg PO Daily -Heart healthy diet Plan discussed with Dr. Dionisio Harris Disposition: Patient stable upon examination and discharged home today. Discharge Instructions: 1. Follow up with PMD within 5 to 7 days upon discharge. 2. Follow up with Dr. Heath upon discharge for outpatient chemotherapy. 3. Return to hospital for any new or worsening symptoms. Medications: 1.Proscar 5mg PO Daily, #30, No refills 2.Cymbalta 60mg PO Daily, #30, No refills 3.Lexapro 20mg PO Daily, #30, No refills 4. Ambien 5mg PO HS, #30, No refills Matthew Montes, PGY-2
[2017-09-24] MEDS: Pantoprazole 40 mg EC Tab PO SCH (10:55)
[2017-09-24] MEDS: Diclofenac Sodium Delayed Release 50 mg EC Tab PO SCH ×2 (10:58→17:07)
[2017-09-24] MEDS: Enoxaparin 40 mg Syringe SC SCH (10:58)
[2017-09-24 17:06] VITALS: BP 102/68; PULSE 83; TEMP 97.8; O2SAT 98
--- NOTE | 2017-09-24 17:40 | CP.PCM.PN ---
Subjective - Date & Time of Evaluation Date of Evaluation: 09/24/17 Time of Evaluation: 09:40 - Subjective Subjective: clinically same Objective - Vital Signs/Intake and Output Vital Signs (last 24 hours): Temp Pulse Resp BP Pulse Ox 97.8 F 83 20 102/68 98 09/24/17 16:00 09/24/17 16:00 09/24/17 16:00 09/24/17 16:00 09/24/17 16:00 - Medications Medications: Current Medications Aspirin (Aspirin Chewable) 81 mg PO DAILY [facility] Last Admin: 09/24/17 10:54 Dose: 81 mg Clonazepam (Klonopin) 2 mg PO TID [facility] Last Admin: 09/24/17 17:07 Dose: 2 mg Diclofenac Sodium (Voltaren) 50 mg PO BID [facility] Last Admin: 09/24/17 17:07 Dose: 50 mg Duloxetine HCl (Cymbalta) 60 mg PO DAILY [facility] Last Admin: 09/24/17 10:58 Dose: 60 mg Enoxaparin Sodium (Lovenox) 40 mg SC DAILY [facility] Last Admin: 09/24/17 10:58 Dose: 40 mg Escitalopram Oxalate (Lexapro) 20 mg PO DAILY [facility] Last Admin: 09/24/17 10:58 Dose: 20 mg Finasteride (Proscar) 5 mg PO DAILY [facility] Last Admin: 09/24/17 10:55 Dose: 5 mg Oxycodone HCl (Oxycodone Immediate Release Tab) 15 mg PO Q3H PRN PRN Reason: Pain, moderate (4-7) Last Admin: 09/24/17 16:15 Dose: 15 mg Pantoprazole Sodium (Protonix Ec Tab) 40 mg PO DAILY [facility] Last Admin: 09/24/17 10:55 Dose: 40 mg Risperidone (Risperdal Tab) 2 mg PO BID [facility] Last Admin: 09/24/17 10:55 Dose: 2 mg Trazodone HCl (Desyrel) 50 mg PO HS [facility] Last Admin: 09/23/17 21:39 Dose: 50 mg Zolpidem Tartrate (Ambien) 5 mg PO HS [facility] Last Admin: 09/23/17 21:39 Dose: 5 mg - Labs Labs: 09/20/17 07:48 09/20/17 07:48 - Constitutional Appears: Well - Head Exam Head Exam: ATRAUMATIC, NORMAL INSPECTION, NORMOCEPHALIC - Eye Exam Eye Exam: EOMI, Normal appearance, PERRL Pupil Exam: NORMAL ACCOMODATION, PERRL - ENT Exam ENT Exam: Mucous Membranes Moist, Normal Exam - Neck Exam Neck Exam: Full ROM, Normal Inspection. absent: Lymphadenopathy - Respiratory Exam Respiratory Exam: Decreased Breath Sounds - Cardiovascular Exam Cardiovascular Exam: REGULAR RHYTHM, +S1, +S2 - GI/Abdominal Exam GI & Abdominal Exam: Soft, Diminished Bowel Sounds - Rectal Exam Rectal Exam: Deferred
--- NOTE | 2017-09-24 18:45 | CP.PCM.PN ---
Subjective - Date & Time of Evaluation Date of Evaluation: 09/23/17 Time of Evaluation: 18:30 - Subjective Subjective: Has intermittent dizziness Objective - Vital Signs/Intake and Output Vital Signs (last 24 hours): Temp Pulse Resp BP Pulse Ox 97.8 F 83 20 102/68 98 09/24/17 16:00 09/24/17 16:00 09/24/17 16:00 09/24/17 16:00 09/24/17 16:00 - Labs Labs: 09/20/17 07:48 09/20/17 07:48 - Head Exam Head Exam: ATRAUMATIC - Eye Exam Eye Exam: Normal appearance - ENT Exam ENT Exam: Mucous Membranes Dry - Respiratory Exam Respiratory Exam: NORMAL BREATHING PATTERN - Cardiovascular Exam Cardiovascular Exam: +S1, +S2 - GI/Abdominal Exam GI & Abdominal Exam: Normal Bowel Sounds Assessment and Plan (1) Colon cancer Assessment & Plan: stage IV lung and liver mets outpatient chemotherapy Status: Acute
--- NOTE | 2017-09-24 18:45 | CP.PCM.PN ---
Subjective - Date & Time of Evaluation Date of Evaluation: 09/24/17 Time of Evaluation: 15:40 - Subjective Subjective: Dizziness improving Objective - Vital Signs/Intake and Output Vital Signs (last 24 hours): Temp Pulse Resp BP Pulse Ox 97.8 F 83 20 102/68 98 09/24/17 16:00 09/24/17 16:00 09/24/17 16:00 09/24/17 16:00 09/24/17 16:00 - Labs Labs: 09/20/17 07:48 09/20/17 07:48 - Head Exam Head Exam: ATRAUMATIC - Eye Exam Eye Exam: Normal appearance - ENT Exam ENT Exam: Mucous Membranes Dry - Respiratory Exam Respiratory Exam: NORMAL BREATHING PATTERN - Cardiovascular Exam Cardiovascular Exam: +S1, +S2 - GI/Abdominal Exam GI & Abdominal Exam: Normal Bowel Sounds Assessment and Plan (1) Colon cancer Assessment & Plan: stage IV liver and lung mets outpatient treatment Status: Acute
== END 2017-09-24 18:04 | disposition home or self-care (01) | DRG 312 ==
LOC: C.ER 12:41 → C.9E 14:45 → C.6T 16:05 → OBSVTOIN 09-22 14:40
PROVIDERS: ADMIT Internal Medicine Nephrology; ATTEND Internal Medicine Nephrology
DX: R55 Syncope and collapse (principal); C18.9 Malignant neoplasm of colon, unspecified; C78.7 Secondary malignant neoplasm of liver and intrahepatic bile duct; C78.00 Secondary malignant neoplasm of unspecified lung; R42 Dizziness and giddiness; R07.9 Chest pain, unspecified; D64.9 Anemia, unspecified; I10 Essential (primary) hypertension; F20.9 Schizophrenia, unspecified; F31.9 Bipolar disorder, unspecified; J45.909 Unspecified asthma, uncomplicated; M06.9 Rheumatoid arthritis, unspecified; Z96.652 Presence of left artificial knee joint; Z90.49 Acquired absence of other specified parts of digestive tract; Z98.51 Tubal ligation status; Z87.891 Personal history of nicotine dependence

== ENCOUNTER 2017-10-04 11:27 | Emergency (ER) | payer MEDICARE ==
[2017-10-04 11:28] VITALS: BMI 38.8
[2017-10-04 12:28] LABS: BASO % 0.6 % (0.0-2.0); EOS % 0.5 % (0.0-4.0); HEMOGLOBIN 10.5 g/dL (11.0-16.0); LYMPH # 0.8 K/uL (1.0-4.3); LYMPH % 18.9 % (20.0-40.0); MEAN CELL VOLUME 76.6 fL (81.0-99.0); MEAN CORPUSCULAR HEMOGLOBIN 26.1 pg (27.0-31.0); MEAN CORPUSCULAR HGB CONC 34.1 g/dL (33.0-37.0); MEAN PLATELET VOLUME 7.8 fL (7.2-11.7); MONO # 0.3 K/uL (0.0-0.8); MONO % 8.1 % (0.0-10.0); NEUT # 3.1 K/uL (1.8-7.0); NEUT % 71.9 % (50.0-75.0); NRBC % 0.1 % (0.0-2.0); RBC 4.02 Mil/uL (3.80-5.20); RED CELL DISTRIBUTION WIDTH 18.4 % (11.5-14.5); WHITE BLOOD COUNT 4.3 K/uL (4.8-10.8)
[2017-10-04 12:43] LABS: ALB/GLOB RATIO 1.4 (1.0-2.1); ALBUMIN 3.7 g/dL (3.5-5.0); ALT/SGPT 31 U/L (9-52); AST/SGOT 23 U/L (14-36); BLOOD UREA NITROGEN 7 mg/dL (7-17); CALCIUM 8.6 mg/dl (8.6-10.4); GFR AFRICAN-AMERICAN > 60; GFR NON-AFRICAN AMERICAN > 60; LIPASE 48 U/L (23-300)
[2017-10-04 12:44] LABS: SQUAMOUS EPITHIAL 3 /hpf (0-5); URINE BACTERIA RARE (<OCC); URINE BILIRUBIN NEGATIVE (NEGATIVE); URINE BLOOD NEGATIVE (NEGATIVE); URINE CLARITY Clear (Clear); URINE COLOR Yellow (YELLOW); URINE GLUCOSE (UA) NORMAL (Normal); URINE LEUKOCYTE ESTERASE NEG Leu/uL (Negative); URINE PROTEIN NEGATIVE (NEGATIVE); URINE UROBILINOGEN NORMAL mg/dL (0.2-1.0)
--- NOTE | 2017-10-04 12:44 | C.PDOC ---
History Of Present Illness 46-year-old female, presents to the emergency department with complaints of left upper/lower pain abdominal pain. Pain is sharp and persistent in nature. She denies any nausea/vomiting/diarrhea, or any other associated symptoms. No other complaints at this time. Time Seen by Provider: 10/04/17 11:56 Chief Complaint (Nursing): Abdominal Pain History Per: Patient History/Exam Limitations: no limitations Current Symptoms Are (Timing): Still Present Severity: Moderate Past Medical History Reviewed: Historical Data, Nursing Documentation, Vital Signs Vital Signs: Last Vital Signs Temp 97.9 F 10/04/17 11:38 Pulse 85 10/04/17 11:38 Resp 18 10/04/17 11:38 BP 141/97 H 10/04/17 11:38 Pulse Ox 99 10/04/17 12:58 - Medical History PMH: Anemia, Anxiety, Arthritis (osteoarthritis), Asthma, Back Problems, Bipolar Disorder, Depression, HTN, Malignancy (Colon), Rheumatoid Arthritis, Schizophrenia Denies: Chronic Kidney Disease - [facility] Procedures CLOSED ENDOSCOPIC BIOPSY OF LARGE INTESTINE (05/23/14) COLONOSCOPY (08/12/14) DX ULTRASOUND-ABDOMEN (05/23/14) INSERTION OF TOTALLY IMPLANTABLE VASC ACCESS DEVIC (05/23/14) LAPAROSCOP LYSIS-PERITONEAL ADHES (05/23/14) LAPAROSCOPIC SIGMOIDECTOMY (05/23/14) OTHER ENDOSCOPY OF SM INTEST (05/23/14) PACKED CELL TRANSFUSION (05/23/14) PERCUTAN NEEDLE BX OF LIVER (05/23/14) REMOVAL OF VAD FROM TRUNK SUBCU/FASCIA, PERC APPROACH (03/16/15) Family History: States: No Known Family Hx, Unknown Family Hx - Social History Hx Tobacco Use: No Hx Alcohol Use: No Hx Substance Use: No - Immunization History Hx Tetanus Toxoid Vaccination: No Hx Influenza Vaccination: Yes Hx Pneumococcal Vaccination: No Review Of Systems Constitutional: Negative for: Fever, Chills Gastrointestinal: Positive for: Abdominal Pain. Negative for: Nausea, Vomiting , Diarrhea Musculoskeletal: Negative for: Back Pain Physical Exam - Physical Exam Appears: Non-toxic, No Acute Distress Skin: Normal Color, Warm, Dry Head: Atraumatic, Normacephalic Eye(s): bilateral: Normal Inspection Nose: Normal Oral Mucosa: Moist Lips: Normal Appearing Neck: Normal ROM Cardiovascular: Rhythm Regular, No Murmur Respiratory: Normal Breath Sounds, No Accessory Muscle Use Gastrointestinal/Abdominal: Soft, Tenderness (upper/lower), No Guarding, No Rebound Extremity: Normal ROM, No Deformity, No Swelling Neurological/Psych: Oriented x3, Normal Speech ED Course And Treatment - Laboratory Results Result Diagrams: 10/04/17 12:24 10/04/17 12:24 O2 Sat by Pulse Oximetry: 99 Pulse Ox Interpretation: Normal (RA) Medical Decision Making Medical Decision Making: * CT Abd/Pel * Bloodwork * Toradol, Pepcid * Reassess and Disposition * * 1300 - case s/o Dr. Hamilton at 1300 pending labs, imaging and dispositon Disposition - Disposition Referrals: Shaik Saxena MD [Primary Care Provider] - Disposition Time: 13:00 Condition: STABLE Forms: [facility] (Setswana) - Clinical Impression Clinical Impression: Abdominal pain - Scribe Statement The provider has reviewed the documentation as recorded by the Scribe (Armando Norris) All medical record entries made by the Scribe were at my direction and personally dictated by me. I have reviewed the chart and agree that the record accurately reflects my personal performance of the history, physical exam, medical decision making, and the department course for this patient. I have also personally directed, reviewed, and agree with the discharge instructions and disposition. Physician Patient Turnover Patient Signed Over To: Shara Hamilton Handoff Comments: pending labs, reevlaution and disposition
[2017-10-04] MEDS ORDERED: Iodixanol 320 MG/ML 100 ML BOTTLE IV ONE (13:19)
--- NOTE | 2017-10-04 14:39 | CT ---
Date of service: 10/04/2017 PROCEDURE: CT Abdomen and Pelvis with contrast HISTORY: Abdominal pain, history of colon cancer surgery COMPARISON: 09/01/2017 TECHNIQUE: CT scan of the abdomen and pelvis was performed after administration of intravenous contrast. Oral contrast was not administered. Coronal and sagittal reformatted images were obtained. Contrast dose: 100 mL Visipaque Radiation dose: Total exam DLP = mGy-cm. This CT exam was performed using one or more of the following dose reduction techniques: Automated exposure control, adjustment of the mA and/or kV according to patient size, and/or use of iterative reconstruction technique. FINDINGS: LOWER THORAX: There is linear scarring in the lingula and subsegmental atelectasis in the left lung base. The visualized right lung is clear. LIVER: Mild hepatomegaly and diffuse fatty liver. There is redemonstration of 4 metastatic lesions in the left hepatic lobe, the largest superior medial lesion measures 4.9 x 4.9 cm. No significant interval change. No intrahepatic biliary ductal dilatation. GALLBLADDER AND BILE DUCTS: No calcified gallstones. PANCREAS: Mild diffuse atrophy. No gross lesion or ductal dilatation. SPLEEN: Mild splenomegaly. No focal lesions. ADRENALS: No discrete nodule. KIDNEYS AND URETERS: Normal in size with homogeneous enhancement. No hydronephrosis. No solid mass. VASCULATURE: Unremarkable. No aortic aneurysm. BOWEL: The small bowel loops are normal in caliber. There is left colonic diverticulosis. There is segmental moderate mural thickening in the proximal descending colon with pericolonic inflammatory changes. No evidence for micro perforation or abscess. No bowel obstruction. There are postsurgical changes of partial sigmoid colon resection. APPENDIX: Normal appendix. PERITONEUM: Unremarkable. No free fluid. No free air. LYMPH NODES: Unremarkable. No enlarged lymph nodes. BLADDER: Well distended and normal in appearance. REPRODUCTIVE: Unremarkable. BONES: No acute fracture. Severe degenerative disc disease at L5-S1. OTHER FINDINGS: None. IMPRESSION: 1. Findings are consistent with segmental acute diverticulitis involving the proximal descending colon. No micro perforation or abscess. 2. Left colonic diverticulosis. 3. Little interval change in known metastatic lesions in the left hepatic lobe, the largest measures 4.9 cm. 4. Mild hepatosplenomegaly and fatty liver.
[2017-10-04] MEDS ORDERED: Amoxicillin-Clav 875-125 mg Tab PO STA (14:58)
[2017-10-04] MEDS ORDERED: Amoxicillin-Clav 875-125 mg Tab PO ONE (15:31)
[2017-10-04 15:53] VITALS: BP 153/97; PULSE 89; RESP 17; TEMP 98.9; O2SAT 100
== END 2017-10-04 15:53 | disposition home or self-care (01) ==
LOC: SUPCPDRO 11:27 → C.ER 11:27
DX: K57.92 Diverticulitis of intestine, part unspecified, without perforation or abscess without bleeding (principal); R10.32 Left lower quadrant pain; F20.9 Schizophrenia, unspecified; I10 Essential (primary) hypertension; M06.9 Rheumatoid arthritis, unspecified
CPT/HCPCS: 74177; 80053; 81001; 83690; 85025; 87086; 96374; 96375; 99285; J1885; J2270; Q9967

== ENCOUNTER 2017-10-05 13:25 | Inpatient (IN) | payer MEDICARE ==
[2017-10-05 13:26] VITALS: BMI 38.8
[2017-10-05] MEDS ORDERED: Sodium Chloride 0.9% 1,000 ML IV ONE (13:46)
[2017-10-05] MEDS ORDERED: Sodium Chloride 0.9% 1,000 ML ONE (14:10)
[2017-10-05] MEDS ORDERED: Morphine 4 MG/ML VIAL ONE (14:10)
--- NOTE | 2017-10-05 14:15 | C.PDOC ---
History Of Present Illness 46 year old woman with PMHx of colon cancer with metastasis to the lung and liver presents to the ER complaining of abdominal pain. Patient is currently on chemotherapy, last chemotherapy on 09/25. Patient was seen in the ED yesterday for similar presentation. Patient states abdominal pain persists. She denies radiation of pain, nausea, vomiting, diarrhea fever, or chills. Oncologist: Dr. Heath PMD: Dr. Tila Harris Time Seen by Provider: 10/05/17 13:45 Chief Complaint (Nursing): Abdominal Pain History Per: Patient History/Exam Limitations: no limitations Onset/Duration Of Symptoms: Days Current Symptoms Are (Timing): Still Present Location Of Pain/Discomfort: RUQ Radiation Of Pain To:: None Associated Symptoms: denies: Fever, Chills, Nausea, Vomiting Past Medical History Reviewed: Historical Data, Nursing Documentation, Vital Signs Vital Signs: Last Vital Signs Temp 97.8 F 10/05/17 13:30 Pulse 100 H 10/05/17 13:30 Resp 20 10/05/17 13:30 BP 127/83 10/05/17 13:30 Pulse Ox 97 10/05/17 14:51 - Medical History PMH: Anemia, Anxiety, Arthritis (osteoarthritis), Asthma, Back Problems, Bipolar Disorder, Depression, HTN, Malignancy (Colon), Rheumatoid Arthritis, Schizophrenia Denies: Chronic Kidney Disease Other Surgeries: Hx of surgeries - [facility] Procedures CLOSED ENDOSCOPIC BIOPSY OF LARGE INTESTINE (05/23/14) COLONOSCOPY (08/12/14) DX ULTRASOUND-ABDOMEN (05/23/14) INSERTION OF TOTALLY IMPLANTABLE VASC ACCESS DEVIC (05/23/14) LAPAROSCOP LYSIS-PERITONEAL ADHES (05/23/14) LAPAROSCOPIC SIGMOIDECTOMY (05/23/14) OTHER ENDOSCOPY OF SM INTEST (05/23/14) PACKED CELL TRANSFUSION (05/23/14) PERCUTAN NEEDLE BX OF LIVER (05/23/14) REMOVAL OF VAD FROM TRUNK SUBCU/FASCIA, PERC APPROACH (03/16/15) Family History: States: No Known Family Hx - Social History Hx Tobacco Use: No Hx Alcohol Use: No Hx Substance Use: No - Immunization History Hx Tetanus Toxoid Vaccination: No Hx Influenza Vaccination: Yes Hx Pneumococcal Vaccination: No Review Of Systems Except As Marked, All Systems Reviewed And Found Negative. Constitutional: Negative for: Fever, Chills Gastrointestinal: Positive for: Abdominal Pain. Negative for: Nausea, Vomiting Physical Exam - Physical Exam Appears: Non-toxic, No Acute Distress Skin: Warm, Dry Head: Atraumatic, Normacephalic Eye(s): bilateral: Normal Inspection Nose: Normal Oral Mucosa: Moist Neck: Supple Chest: Symmetrical Cardiovascular: Rhythm Regular Respiratory: Normal Breath Sounds, No Rales, No Wheezing Gastrointestinal/Abdominal: Tenderness (Tenderness to left sided abdomen ), No Guarding, No Rebound Extremity: Bilateral: Atraumatic, Normal Color And Temperature, Normal ROM Neurological/Psych: Oriented x3, Normal Speech Gait: Steady ED Course And Treatment - Laboratory Results Result Diagrams: 10/05/17 14:22 10/05/17 14:22 Lab Interpretation: Normal O2 Sat by Pulse Oximetry: 97 (RA) Pulse Ox Interpretation: Normal - Other Rad No standard instances X-Ray: Interpreted by Me Interpretation: OBS series: no OBS Progress Note: Treated with IVF NSS and morphine IV. On re-evaluation mild LLQ abd pain Reassessment Condition: Improved - Physician Consult Information Physician Contacted: Rosaura Harris Outcome Of Conversation: admit Medical Decision Making Medical Decision Making: Impression: Abdominal pain Orders - Lab work - Obstructive series of Abdomen - Morphine 4mg IVP - UA - IV fluids Old records reviewed. CT was unremarkable. [id number] Tila Harris. Patient will be admitted for observation. Disposition Discussed With : Rosaura Harris Doctor Will See Patient In The: Hospital - Disposition Disposition: HOSPITALIZED Disposition Time: 13:45 Condition: STABLE - Clinical Impression Clinical Impression: Abdominal pain - PA / PLASTICS SUPERVISOR / Resident Statement MD/DO has reviewed & agrees with the documentation as recorded. - Scribe Statement The provider has reviewed the documentation as recorded by the Scribe Ibis Knox All medical record entries made by the Scribe were at my direction and personally dictated by me. I have reviewed the chart and agree that the record accurately reflects my personal performance of the history, physical exam, medical decision making, and the department course for this patient. I have also personally directed, reviewed, and agree with the discharge instructions and disposition. Decision To Admit - Pt Status Changed To: Hospital Disposition Of: Observation - . Bed Request Type: Regular Admitting Physician: Rosaura Harris Patient Diagnosis: Abdominal pain, Abdominal pain
[2017-10-05 14:31] LABS: BASO % 0.3 % (0.0-2.0); EOS % 0.6 % (0.0-4.0); HEMOGLOBIN 10.5 g/dL (11.0-16.0); LYMPH # 0.8 K/uL (1.0-4.3); LYMPH % 18.9 % (20.0-40.0); MEAN CELL VOLUME 77.5 fL (81.0-99.0); MEAN CORPUSCULAR HEMOGLOBIN 26.2 pg (27.0-31.0); MEAN CORPUSCULAR HGB CONC 33.8 g/dL (33.0-37.0); MEAN PLATELET VOLUME 7.9 fL (7.2-11.7); MONO # 0.3 K/uL (0.0-0.8); MONO % 7.9 % (0.0-10.0); NEUT # 3.2 K/uL (1.8-7.0); NEUT % 72.3 % (50.0-75.0); NRBC % 0.1 % (0.0-2.0); RBC 4.02 Mil/uL (3.80-5.20); RED CELL DISTRIBUTION WIDTH 18.7 % (11.5-14.5); WHITE BLOOD COUNT 4.4 K/uL (4.8-10.8)
[2017-10-05 14:39] LABS: ALB/GLOB RATIO 1.2 (1.0-2.1); ALBUMIN 3.5 g/dL (3.5-5.0); ALT/SGPT 25 U/L (9-52); AST/SGOT 24 U/L (14-36); BLOOD UREA NITROGEN 7 mg/dL (7-17); CALCIUM 8.3 mg/dl (8.6-10.4); GFR AFRICAN-AMERICAN > 60; GFR NON-AFRICAN AMERICAN > 60
[2017-10-05 14:54] LABS: LIPASE 92 U/L (23-300)
[2017-10-05 15:27] LABS: SQUAMOUS EPITHIAL 3 /hpf (0-5); URINE BACTERIA RARE (<OCC); URINE BILIRUBIN NEGATIVE (NEGATIVE); URINE BLOOD NEGATIVE (NEGATIVE); URINE CLARITY Clear (Clear); URINE COLOR Straw (YELLOW); URINE GLUCOSE (UA) NORMAL (Normal); URINE LEUKOCYTE ESTERASE NEG Leu/uL (Negative); URINE PROTEIN NEGATIVE (NEGATIVE); URINE UROBILINOGEN NORMAL mg/dL (0.2-1.0)
--- NOTE | 2017-10-05 16:25 | CP.PCM.HP ---
Past Patient History - Infectious Disease Hx of Infectious Diseases: None - Past Medical History & Family History Past Medical History?: Yes - Past Social History Smoking Status: Former Smoker - CARDIAC Hx Hypertension: Yes - PULMONARY Hx Asthma: Yes - NEUROLOGICAL Hx Neurological Disorder: No - HEENT Hx HEENT Problems: No - RENAL Hx Chronic Kidney Disease: No - ENDOCRINE/METABOLIC Hx Endocrine Disorders: No - HEMATOLOGICAL/ONCOLOGICAL Hx Anemia: Yes - INTEGUMENTARY Hx Dermatological Problems: No - MUSCULOSKELETAL/RHEUMATOLOGICAL Hx Arthritis: Yes (osteoarthritis) Hx Rheumatoid Arthritis: Yes - GASTROINTESTINAL Hx Gastrointestinal Disorders: Yes Hx Bowel Surgery: Yes Other/Comment: COLON CANCER STAGE 4 WITH CHEMOTHERAPY, last chemo was august 26 2017. R side port a cath - GENITOURINARY/GYNECOLOGICAL Hx Genitourinary Disorders: No - PSYCHIATRIC Hx Anxiety: Yes Hx Bipolar Disorder: Yes Hx Depression: Yes Hx Schizophrenia: Yes Hx Substance Use: No - SURGICAL HISTORY Hx Surgeries: Yes (SEE COMMENT) Hx Orthopedic Surgery: Yes (left knee TKR 03/2017) Hx Tubal Ligation: Yes (2005) Hx Vascular Access Device: Yes (RIGHT SUBCLAVIAN 2014) Other/Comment: colon cancer surgery april 2014 to remove tumor, rt side subclavian Port - ANESTHESIA Hx Anesthesia: Yes Hx Anesthesia Reactions: No Hx Malignant Hyperthermia: No Meds Allergies/Adverse Reactions: Allergies Allergy/AdvReac Type Severity Reaction Status Date / Time No Known Allergies Allergy Verified 10/05/17 13:46 Physical Exam - Constitutional Appears: Well - Head Exam Head Exam: ATRAUMATIC, NORMAL INSPECTION, NORMOCEPHALIC - Eye Exam Eye Exam: EOMI, Normal appearance, PERRL Pupil Exam: NORMAL ACCOMODATION, PERRL - ENT Exam ENT Exam: Mucous Membranes Moist, Normal Exam - Neck Exam Neck exam: Positive for: Normal Inspection - Respiratory Exam Respiratory Exam: Decreased Breath Sounds - Cardiovascular Exam Cardiovascular Exam: REGULAR RHYTHM, +S1, +S2 - GI/Abdominal Exam GI & Abdominal Exam: Diminished Bowel Sounds, Soft - Rectal Exam Rectal Exam: Deferred Results - Vital Signs Recent Vital Signs: Last Vital Signs Temp 97.8 F 10/05/17 13:30 Pulse 100 H 10/05/17 13:30 Resp 20 10/05/17 13:30 BP 127/83 10/05/17 13:30 Pulse Ox 97 10/05/17 15:54 - Labs Result Diagrams: 10/05/17 14:22 10/05/17 14:22 Labs: Laboratory Results - last 24 hr 10/05/17 10/05/17 10/05/17 14:22 14:22 15:20 WBC 4.4 L RBC 4.02 Hgb 10.5 L Hct 31.1 L MCV 77.5 L MCH 26.2 L MCHC 33.8 RDW 18.7 H Plt Count 126 L MPV 7.9 Neut % (Auto) 72.3 Lymph % (Auto) 18.9 L [place] % (Auto) 7.9 Eos % (Auto) 0.6 Baso % (Auto) 0.3 Neut # (Auto) 3.2 Lymph # (Auto) 0.8 L [place] # (Auto) 0.3 Eos # (Auto) 0.0 Baso # (Auto) 0.0 Sodium 141 Potassium 3.7 Chloride 103 Carbon Dioxide 31 H Anion Gap 11 BUN 7 Creatinine 0.7 Est GFR ( Amer) > 60 Est GFR (Non-Af Amer) > 60 Random Glucose 96 Calcium 8.3 L Total Bilirubin 0.5 AST 24 ALT 25 Alkaline Phosphatase 52 Total Protein 6.3 Albumin 3.5 Globulin 2.8 Albumin/Globulin Ratio 1.2 Lipase 92 Urine Color Straw Urine Clarity Clear Urine pH 7.0 Ur Specific [place] 1.001 L Urine Protein Negative Urine Glucose (UA) Normal Urine Ketones Negative Urine Blood Negative Urine Nitrate Negative Urine Bilirubin Negative Urine Urobilinogen Normal Ur Leukocyte Esterase Neg Urine WBC (Auto) < 1 Ur Squamous Epith Cells 3 Urine Bacteria Rare
[2017-10-05] MEDS ORDERED: OXYCODONE 15 MG PO PRN (16:47)
[2017-10-05 17:47] LABS: CK-MB 0.46 ng/mL (0.0-3.38)
[2017-10-05] MEDS: Diclofenac Sodium Delayed Release 50 mg EC Tab PO SCH (18:09)
[2017-10-05] MEDS ORDERED: oxyCODONE 5 mg Immediate Release Tab ONE (20:17)
--- NOTE | 2017-10-05 21:50 | RAD ---
Date of service: 10/05/2017 PROCEDURE: Radiographs of the chest and abdomen (obstructive series) HISTORY: Abd Pain COMPARISON: Comparison is made with the previous CT of the chest dated 09/13/2017 previous obstructive series dated 06/14/2016 TECHNIQUE: AP radiograph of the chest, with upright and supine radiographs of the abdomen. FINDINGS: CHEST: Lungs: Clear. Cardiovascular: Normal size heart. No pulmonary vascular congestion. Pleura: No pleural fluid. No pneumothorax. Other findings: Right-sided Infusaport seen in place ABDOMEN AND PELVIS: Bowel: Unremarkable bowel gas pattern. No evidence of mechanical obstruction. Free air: None. Bones: Unremarkable. Other findings: None. IMPRESSION: Unremarkable radiographs of chest and abdomen. No evidence of mechanical bowel obstruction.
[2017-10-06 00:52] VITALS: RESP 20
[2017-10-06] MEDS ORDERED: Tramadol 25 mg PO PRN (04:55)
[2017-10-06] MEDS: Diclofenac Sodium Delayed Release 50 mg EC Tab PO SCH ×2 (09:56→17:22)
[2017-10-06] MEDS: oxyCODONE 5 mg Immediate Release Tab PO PRN ×2 (11:50→21:04)
--- NOTE | 2017-10-06 12:56 | CP.PCM.PN ---
Subjective - Date & Time of Evaluation Date of Evaluation: 10/06/17 Time of Evaluation: 08:00 - Subjective Subjective: clinically same Objective - Vital Signs/Intake and Output Vital Signs (last 24 hours): Temp Pulse Resp BP Pulse Ox 97.6 F 98 H 20 143/97 H 96 10/06/17 07:51 10/06/17 07:51 10/06/17 07:51 10/06/17 07:51 10/06/17 08:00 - Medications Medications: Current Medications Aspirin (Aspirin) 325 mg PO DAILY [facility] Last Admin: 10/06/17 09:56 Dose: 325 mg Clonazepam (Klonopin) 2 mg PO BID [facility] Last Admin: 10/06/17 09:56 Dose: 2 mg Diclofenac Sodium (Voltaren) 50 mg PO BID [facility] Last Admin: 10/06/17 09:56 Dose: 50 mg Duloxetine HCl (Cymbalta) 60 mg PO DAILY [facility] Last Admin: 10/06/17 09:56 Dose: 60 mg Escitalopram Oxalate (Lexapro) 20 mg PO DAILY [facility] Last Admin: 10/06/17 09:56 Dose: 20 mg Home Med (Solifenacin Succinate [Vesicare]) 5 mg PO DAILY [facility] Oxycodone HCl (Oxycodone Immediate Release Tab) 15 mg PO Q3H PRN PRN Reason: Pain, moderate (4-7) Last Admin: 10/06/17 11:50 Dose: 15 mg Risperidone (Risperdal Tab) 2 mg PO BID [facility] Last Admin: 10/06/17 09:56 Dose: 2 mg Tramadol HCl (Ultram) 25 mg PO TID PRN PRN Reason: Pain, moderate (4-7) Last Admin: 10/06/17 05:14 Dose: 25 mg Trazodone HCl (Desyrel) 50 mg PO HS [facility] Last Admin: 10/05/17 21:45 Dose: 50 mg - Labs Labs: 10/05/17 14:22 10/05/17 14:22 - Constitutional Appears: Well - Head Exam Head Exam: ATRAUMATIC, NORMAL INSPECTION, NORMOCEPHALIC - Eye Exam Eye Exam: EOMI, Normal appearance, PERRL Pupil Exam: NORMAL ACCOMODATION, PERRL - ENT Exam ENT Exam: Mucous Membranes Moist, Normal Exam - Neck Exam Neck Exam: Full ROM, Normal Inspection. absent: Lymphadenopathy - Respiratory Exam Respiratory Exam: Decreased Breath Sounds - Cardiovascular Exam Cardiovascular Exam: REGULAR RHYTHM, +S1, +S2 - GI/Abdominal Exam GI & Abdominal Exam: Soft, Diminished Bowel Sounds - Rectal Exam Rectal Exam: Deferred
[2017-10-06] MEDS: Enoxaparin 40 mg Syringe SC SCH (15:02)
[2017-10-06 17:08] LABS: CK-MB 0.36 ng/mL (0.0-3.38)
[2017-10-07] MEDS: oxyCODONE 5 mg Immediate Release Tab PO PRN ×4 (04:32→22:46)
[2017-10-07] MEDS: Diclofenac Sodium Delayed Release 50 mg EC Tab PO SCH ×2 (10:09→17:32)
[2017-10-07] MEDS: Enoxaparin 40 mg Syringe SC SCH (10:10)
[2017-10-07] MEDS ORDERED: oxyCODONE 5 mg Immediate Release Tab PO PRN ×2 (11:39→11:45)
[2017-10-07] MEDS ORDERED: oxyCODONE 10 mg Immediate Release Tab PO PRN (11:45)
[2017-10-07 12:05] LABS: BASO % 0.5 % (0.0-2.0); EOS % 0.8 % (0.0-4.0); HEMOGLOBIN 10.4 g/dL (11.0-16.0); LYMPH # 0.9 K/uL (1.0-4.3); LYMPH % 19.4 % (20.0-40.0); MEAN CELL VOLUME 78.2 fL (81.0-99.0); MEAN CORPUSCULAR HEMOGLOBIN 26.1 pg (27.0-31.0); MEAN CORPUSCULAR HGB CONC 33.4 g/dL (33.0-37.0); MEAN PLATELET VOLUME 7.9 fL (7.2-11.7); MONO # 0.3 K/uL (0.0-0.8); MONO % 7.1 % (0.0-10.0); NEUT # 3.4 K/uL (1.8-7.0); NEUT % 72.2 % (50.0-75.0); RBC 3.97 Mil/uL (3.80-5.20); RED CELL DISTRIBUTION WIDTH 18.7 % (11.5-14.5); WHITE BLOOD COUNT 4.8 K/uL (4.8-10.8)
[2017-10-07] MEDS: oxyCODONE 10 mg Immediate Release Tab PO PRN ×3 (12:43→22:47)
[2017-10-07 13:49] LABS: ALB/GLOB RATIO 1.3 (1.0-2.1); ALBUMIN 3.5 g/dL (3.5-5.0); ALT/SGPT 26 U/L (9-52); AST/SGOT 20 U/L (14-36); BLOOD UREA NITROGEN 10 mg/dL (7-17); CALCIUM 8.6 mg/dl (8.6-10.4); GFR AFRICAN-AMERICAN > 60; GFR NON-AFRICAN AMERICAN > 60
--- NOTE | 2017-10-07 18:12 | CP.PCM.PN ---
Subjective - Date & Time of Evaluation Date of Evaluation: 10/07/17 Time of Evaluation: 07:35 - Subjective Subjective: PGY2 Medicine Note for Dr. Tila Harris Patient seen and examined this morning at bedside. No acute events overnight. She is resting comfortably in bed. She reports improving but still present lower abdominal pain. She has had these pains previously. She states that she has been attempting to space out the duration of her pain medications. She denies any complaints other than abdominal pain. Denies fevers, chills, nausea, vomiting, diarrhea, chest pain, shortness of breath, numbness or tingling. Patient is 46yo female with history of bipolar disorder, depression and metastatic colon cancer to liver and lungs, comes to ER for evaluation after severe abdominal pain. Patient has been admitted multiple times under Dr. Tila Harris and was recently discharged. Patient is currently on chemotherapy, last treatment of chemotherapy on 09/25/17. Patient was seen in the ED on 10/04 for similar presentation. Patient states abdominal pain persists. She denies fevers , chills, nausea, vomiting, diarrhea, chest pain, shortness of breath, numbness or tingling. Objective - Vital Signs/Intake and Output Vital Signs (last 24 hours): Temp Pulse Resp BP Pulse Ox 98 F 81 20 149/94 H 97 10/07/17 16:05 10/07/17 16:05 10/07/17 16:05 10/07/17 16:05 10/07/17 16:05 Intake and Output: 10/07/17 10/07/17 06:59 18:59 Intake Total 1900 Balance 1900 - Medications Medications: Current Medications Aspirin (Aspirin) 325 mg PO DAILY [facility] Last Admin: 10/07/17 10:09 Dose: 325 mg Clonazepam (Klonopin) 2 mg PO BID [facility] Last Admin: 10/07/17 17:33 Dose: 2 mg Diclofenac Sodium (Voltaren) 50 mg PO BID [facility] Last Admin: 10/07/17 17:32 Dose: 50 mg Duloxetine HCl (Cymbalta) 60 mg PO DAILY [facility] Last Admin: 10/07/17 10:09 Dose: 60 mg Enoxaparin Sodium (Lovenox) 40 mg SC DAILY [facility] Last Admin: 10/07/17 10:10 Dose: 40 mg Escitalopram Oxalate (Lexapro) 20 mg PO DAILY [facility] Last Admin: 10/07/17 10:10 Dose: 20 mg Home Med (Solifenacin Succinate [Vesicare]) 5 mg PO DAILY [facility] Oxycodone HCl (Oxycodone Immediate Release Tab) 10 mg PO Q3H PRN PRN Reason: Pain,SEVERE (8-10) Last Admin: 10/07/17 15:59 Dose: 10 mg Oxycodone HCl (Oxycodone Immediate Release Tab) 5 mg PO Q3H PRN PRN Reason: FOR SEVERE PAIN 8-10 Last Admin: 10/07/17 16:01 Dose: 5 mg Risperidone (Risperdal Tab) 2 mg PO BID [facility] Last Admin: 10/07/17 17:32 Dose: 2 mg Tramadol HCl (Ultram) 25 mg PO TID PRN PRN Reason: Pain, moderate (4-7) Last Admin: 10/06/17 05:14 Dose: 25 mg Trazodone HCl (Desyrel) 50 mg PO [facility] Last Admin: 10/06/17 21:04 Dose: 50 mg - Labs Labs: 10/07/17 11:48 10/07/17 11:48 - Constitutional Appears: Non-toxic, No Acute Distress - Head Exam Head Exam: ATRAUMATIC, NORMOCEPHALIC - Eye Exam Eye Exam: EOMI, Normal appearance - ENT Exam ENT Exam: Mucous Membranes Moist - Neck Exam Neck Exam: absent: Lymphadenopathy - Respiratory Exam Respiratory Exam: Clear to Ausculation Bilateral, NORMAL BREATHING PATTERN. absent: Accessory Muscle Use, Rales, Rhonchi, Wheezes, Respiratory Distress - Cardiovascular Exam Cardiovascular Exam: REGULAR RHYTHM, +S1, +S2 - GI/Abdominal Exam GI & Abdominal Exam: Soft, Tenderness (left sided abdominal pain). absent: Distended, Firm, Guarding, Rigid, Normal Bowel Sounds - Extremities Exam Extremities Exam: absent: Calf Tenderness - Back Exam Back Exam: absent: CVA tenderness (L), CVA tenderness (R) - Neurological Exam Neurological Exam: Alert, Awake, CN II-XII Intact, Oriented x3 - Psychiatric Exam Psychiatric exam: Normal Affect, Normal Mood - Skin Skin Exam: Dry, Warm Assessment and Plan - Assessment and Plan (Free Text) Plan: Abdominal Pain/Metastatic colon cancer Stage IV; mets to liver and lung Dr. Heath, Hem/Onc consulted - f/u recs * outpatient chemo Obstruction series 10/05/17: Unremarkable radiographs of chest and abdomen. No evidence of mechanical bowel obstruction. Lung biopsy (on 08/19/17): Metastatic adenocarcinoma. Consistent w colonic primary UA: no UTI Trop neg x2 Oxycodone 15mg PO Q3H PRN for pain Tramadol 25mg PO TID prn for pain Bipolar disorder Risperdal 2mg PO BID Depression Cymbalta 60mg PO Daily Lexapro 20mg PO Daily HTN Aspirin 325mg PO daily BP well controlled continue to monitor Hx of Anemia of Chronic Disease Hgb stable Monitor Anxiety Klonopin 2mg PO TID Osteoarthritis Voltaren 50mg PO BID Insomnia Trazadone 50mg PO HS PPX Heart healthy Diet Lovenox 40mg SC daily Protonix 40mg PO Daily SCDs All medical management per Dr. Tila Harris
--- NOTE | 2017-10-07 18:14 | CP.PCM.PN ---
Subjective - Date & Time of Evaluation Date of Evaluation: 10/07/17 Time of Evaluation: 07:30 - Subjective Subjective: clinically same Objective - Vital Signs/Intake and Output Vital Signs (last 24 hours): Temp Pulse Resp BP Pulse Ox 98 F 81 20 149/94 H 97 10/07/17 16:05 10/07/17 16:05 10/07/17 16:05 10/07/17 16:05 10/07/17 16:05 Intake and Output: 10/07/17 10/07/17 06:59 18:59 Intake Total 1900 Balance 1900 - Medications Medications: Current Medications Aspirin (Aspirin) 325 mg PO DAILY [facility] Last Admin: 10/07/17 10:09 Dose: 325 mg Clonazepam (Klonopin) 2 mg PO BID [facility] Last Admin: 10/07/17 17:33 Dose: 2 mg Diclofenac Sodium (Voltaren) 50 mg PO BID [facility] Last Admin: 10/07/17 17:32 Dose: 50 mg Duloxetine HCl (Cymbalta) 60 mg PO DAILY [facility] Last Admin: 10/07/17 10:09 Dose: 60 mg Enoxaparin Sodium (Lovenox) 40 mg SC DAILY [facility] Last Admin: 10/07/17 10:10 Dose: 40 mg Escitalopram Oxalate (Lexapro) 20 mg PO DAILY [facility] Last Admin: 10/07/17 10:10 Dose: 20 mg Home Med (Solifenacin Succinate [Vesicare]) 5 mg PO DAILY [facility] Oxycodone HCl (Oxycodone Immediate Release Tab) 10 mg PO Q3H PRN PRN Reason: Pain,SEVERE (8-10) Last Admin: 10/07/17 15:59 Dose: 10 mg Oxycodone HCl (Oxycodone Immediate Release Tab) 5 mg PO Q3H PRN PRN Reason: FOR SEVERE PAIN 8-10 Last Admin: 10/07/17 16:01 Dose: 5 mg Risperidone (Risperdal Tab) 2 mg PO BID [facility] Last Admin: 10/07/17 17:32 Dose: 2 mg Tramadol HCl (Ultram) 25 mg PO TID PRN PRN Reason: Pain, moderate (4-7) Last Admin: 10/06/17 05:14 Dose: 25 mg Trazodone HCl (Desyrel) 50 mg PO [facility] Last Admin: 10/06/17 21:04 Dose: 50 mg - Labs Labs: 10/07/17 11:48 10/07/17 11:48 - Constitutional Appears: Well - Head Exam Head Exam: ATRAUMATIC, NORMAL INSPECTION, NORMOCEPHALIC - Eye Exam Eye Exam: EOMI, Normal appearance, PERRL Pupil Exam: NORMAL ACCOMODATION, PERRL - ENT Exam ENT Exam: Mucous Membranes Moist, Normal Exam - Neck Exam Neck Exam: Full ROM, Normal Inspection. absent: Lymphadenopathy - Respiratory Exam Respiratory Exam: Decreased Breath Sounds - Cardiovascular Exam Cardiovascular Exam: REGULAR RHYTHM, +S1, +S2 - GI/Abdominal Exam GI & Abdominal Exam: Soft, Diminished Bowel Sounds - Rectal Exam Rectal Exam: Deferred
[2017-10-08] MEDS: oxyCODONE 5 mg Immediate Release Tab PO PRN ×5 (05:31→21:47)
[2017-10-08] MEDS: oxyCODONE 10 mg Immediate Release Tab PO PRN ×5 (05:31→21:47)
[2017-10-08 07:16] LABS: BASO % 0.4 % (0.0-2.0); EOS # 0.1 K/uL (0.0-0.7); EOS % 1.4 % (0.0-4.0); HEMOGLOBIN 10.4 g/dL (11.0-16.0); LYMPH # 1.2 K/uL (1.0-4.3); LYMPH % 27.6 % (20.0-40.0); MEAN CELL VOLUME 77.8 fL (81.0-99.0); MEAN CORPUSCULAR HEMOGLOBIN 25.9 pg (27.0-31.0); MEAN CORPUSCULAR HGB CONC 33.3 g/dL (33.0-37.0); MONO # 0.3 K/uL (0.0-0.8); MONO % 7.1 % (0.0-10.0); NEUT # 2.7 K/uL (1.8-7.0); NEUT % 63.5 % (50.0-75.0); RBC 4.03 Mil/uL (3.80-5.20); RED CELL DISTRIBUTION WIDTH 18.3 % (11.5-14.5); WHITE BLOOD COUNT 4.2 K/uL (4.8-10.8)
[2017-10-08 07:56] LABS: BLOOD UREA NITROGEN 12 mg/dL (7-17); CALCIUM 8.7 mg/dl (8.6-10.4); GFR AFRICAN-AMERICAN > 60; GFR NON-AFRICAN AMERICAN > 60
--- NOTE | 2017-10-08 08:19 | CP.PCM.PN ---
Subjective - Date & Time of Evaluation Date of Evaluation: 10/08/17 Time of Evaluation: 08:19 - Subjective Subjective: PGY2 Medicine Note for Dr. Tila Harris Patient seen and examined this morning at bedside. No acute events overnight. Upon entering the room, patient seen sleeping comfortably. Patient awoken easily and started complaining of worsening abdominal pain. Patient currently rating a 9/10. She has no other complaints other than abdominal pain. She is eating appropriately and states she is hungry. Denies fevers, chills, nausea, vomiting, diarrhea, constipation, chest pain, shortness of breath, numbness or tingling. Objective - Vital Signs/Intake and Output Vital Signs (last 24 hours): Temp Pulse Resp BP Pulse Ox 97.9 F 74 20 141/93 H 94 L 10/08/17 00:00 10/08/17 00:00 10/08/17 00:00 10/08/17 00:00 10/08/17 00:00 Intake and Output: 10/08/17 10/08/17 06:59 18:59 Intake Total 2300 Balance 2300 - Medications Medications: Current Medications Aspirin (Aspirin) 325 mg PO DAILY [facility] Last Admin: 10/07/17 10:09 Dose: 325 mg Clonazepam (Klonopin) 2 mg PO BID [facility] Last Admin: 10/07/17 17:33 Dose: 2 mg Diclofenac Sodium (Voltaren) 50 mg PO BID [facility] Last Admin: 10/07/17 17:32 Dose: 50 mg Duloxetine HCl (Cymbalta) 60 mg PO DAILY [facility] Last Admin: 10/07/17 10:09 Dose: 60 mg Enoxaparin Sodium (Lovenox) 40 mg SC DAILY [facility] Last Admin: 10/07/17 10:10 Dose: 40 mg Escitalopram Oxalate (Lexapro) 20 mg PO DAILY [facility] Last Admin: 10/07/17 10:10 Dose: 20 mg Home Med (Solifenacin Succinate [Vesicare]) 5 mg PO DAILY [facility] Oxycodone HCl (Oxycodone Immediate Release Tab) 10 mg PO Q3H PRN PRN Reason: Pain,SEVERE (8-10) Last Admin: 10/08/17 05:31 Dose: 10 mg Oxycodone HCl (Oxycodone Immediate Release Tab) 5 mg PO Q3H PRN PRN Reason: FOR SEVERE PAIN 8-10 Last Admin: 10/08/17 05:31 Dose: 5 mg Risperidone (Risperdal Tab) 2 mg PO BID [facility] Last Admin: 10/07/17 17:32 Dose: 2 mg Tramadol HCl (Ultram) 25 mg PO TID PRN PRN Reason: Pain, moderate (4-7) Last Admin: 10/06/17 05:14 Dose: 25 mg Trazodone HCl (Desyrel) 50 mg PO HS [facility] Last Admin: 10/07/17 22:06 Dose: 50 mg - Labs Labs: 10/08/17 06:58 10/08/17 06:58 - Constitutional Appears: Non-toxic, No Acute Distress, Other (obese) - Head Exam Head Exam: ATRAUMATIC, NORMOCEPHALIC - Eye Exam Eye Exam: EOMI, Normal appearance - ENT Exam ENT Exam: Mucous Membranes Moist - Neck Exam Neck Exam: absent: Lymphadenopathy - Respiratory Exam Respiratory Exam: Clear to Ausculation Bilateral, Rales, NORMAL BREATHING PATTERN. absent: Accessory Muscle Use, Rhonchi, Wheezes, Respiratory Distress - Cardiovascular Exam Cardiovascular Exam: REGULAR RHYTHM, +S1, +S2 - GI/Abdominal Exam GI & Abdominal Exam: Soft, Tenderness (left sided), Normal Bowel Sounds. absent : Distended, Firm, Guarding, Rigid, Rebound Additional comments: obese - Extremities Exam Extremities Exam: absent: Calf Tenderness, Pedal Edema - Neurological Exam Neurological Exam: Alert, Awake, Oriented x3 - Psychiatric Exam Psychiatric exam: Normal Affect, Normal Mood - Skin Skin Exam: Dry, Warm Assessment and Plan - Assessment and Plan (Free Text) Plan: Abdominal Pain/Metastatic colon cancer Stage IV; mets to liver and lung Dr. Heath, Hem/Onc consulted - f/u recs * outpatient chemo * requested Chest/Abd/Pel CT w/PO and IV contrast Obstruction series 10/05/17: Unremarkable radiographs of chest and abdomen. No evidence of mechanical bowel obstruction. Lung biopsy (on 08/19/17): Metastatic adenocarcinoma. Consistent w colonic primary Chest/Abd/Pel CT w/PO and IV contrast 10/08/17: pending UA: no UTI Trop neg x2 Oxycodone 15mg PO Q3H PRN for pain Tramadol 25mg PO TID prn for pain Bipolar disorder Risperdal 2mg PO BID Depression Cymbalta 60mg PO Daily Lexapro 20mg PO Daily HTN Aspirin 325mg PO daily BP elevated continue to monitor Hx of Anemia of Chronic Disease Hgb stable Monitor Anxiety Klonopin 2mg PO TID Osteoarthritis Voltaren 50mg PO BID Insomnia Trazadone 50mg PO HS PPX Heart healthy Diet Lovenox 40mg SC daily Protonix 40mg PO Daily [facility] All medical management per Dr. Tila Harris
[2017-10-08] MEDS: Enoxaparin 40 mg Syringe SC SCH (10:01)
[2017-10-08] MEDS: Diclofenac Sodium Delayed Release 50 mg EC Tab PO SCH ×2 (10:01→17:40)
[2017-10-08] MEDS ORDERED: Iohexol 240 (50 ml) PO ONE (13:45)
[2017-10-08] MEDS ORDERED: Iohexol 350mg/ml 100 ML ONE (15:03)
--- NOTE | 2017-10-08 17:09 | CT ---
Date of service: 10/08/2017 PROCEDURE: CT Chest, Abdomen and Pelvis with intravenous contrast HISTORY: abdominal pain history of colon cancer COMPARISON: Comparison is made with the previous study dated 10/04/[address] abdomen dated 10/04/2017 CT chest dated 09/13/2017 TECHNIQUE: IV dose administered: 100 mL Omnipaque 350. Axial and reformatted coronal and sagittal CT images of the chest abdomen and pelvis were obtained after IV contrast and demonstration. Oral contrast was given. Radiation dose: Total exam DLP = 1827.39 mGy-cm. This CT exam was performed using one or more of the following dose reduction techniques: Automated exposure control, adjustment of the mA and/or kV according to patient size, and/or use of iterative reconstruction technique. FINDINGS: CT CHEST WITH CONTRAST: LUNGS: There is 1.2 centimeter nodule at the peripheral right lung upper lobe suspicious for metastasis has increased in size since the previous last year exam. No other suspicious mass or nodule in the lower lungs. MEDIASTINUM: Unremarkable. Normal caliber aorta and pulmonary arterial trunk. No aortic dissection. The heart is mildly enlarged. LYMPH NODES: Unremarkable. PLEURA: Unremarkable. No pneumothorax. No pleural fluid. BONES: Unremarkable. OTHER FINDINGS: None. CT ABDOMEN AND PELVIS: LIVER: There are multiple slightly low-attenuation mass lesion in the left liver lobe likely represent metastasis. The largest lesion measures 5 centimeter in the transverse diameter and 4.5 centimeter in the AP diameter there is also peripheral anterior left liver lobe mass lesion measures 2.7 centimeter in the transverse diameter and 2.5 centimeter in the AP diameter. The portal vein is patent. The portal vein is mildly enlarged. GALLBLADDER AND BILE DUCTS: Unremarkable. PANCREAS: Unremarkable. No gross lesion or ductal dilatation. SPLEEN: Splenomegaly is again noted. The spleen measures 17 in the longitudinal diameter. ADRENALS: Unremarkable. No mass. KIDNEYS AND URETERS: Unremarkable. No hydronephrosis. No solid mass. VASCULATURE: Unremarkable. No aortic aneurysm. BOWEL: Colonic diverticulosis are again noted. Interval improvement in the previously noted inflammatory changes adjacent to the proximal descending colon consistent with diverticulitis. No evidence of abscess formation or free air. No evidence of small bowel obstruction. Bowel anastomosis noted at the junction of the sigmoid and rectum. Mild constipation is noted. APPENDIX: No evidence of appendicitis. PERITONEUM: Unremarkable. No free fluid. No free air. LYMPH NODES: Unremarkable. No enlarged lymph nodes. BLADDER: Unremarkable. REPRODUCTIVE: Unremarkable. BONES: No acute fracture. OTHER FINDINGS: None. IMPRESSION: Right lung upper lobe 1.2 centimeter nodule suspicious for metastasis. Re- demonstration of multiple lesions in the left liver lobe consistent with liver metastasis. Again noted is [id number] hepato splenomegaly. Interval improvement in the previously noted inflammatory changes adjacent to the proximal descending colon consistent with acute diverticulitis since the previous study dated 10/04/2017. Otherwise no significant interval change.
--- NOTE | 2017-10-08 18:46 | CP.PCM.CON ---
History of Present Illness - History of Present Illness History of Present Illness: 46 year old female with history of depression, stage IV colon cancer with liver and lung metastasis dx in 05/2014, recently restarted on chemotherapy , admitted with abdominal pain. The patient reports to cramping left lower quadrant abdominal pain. A CT scan performed showed diverticulitis of the descending colon. Past medical history: depression, anemia. Past surgical history: Knee surgery, portacatheter placement and removal Family history: Denies hematologic and oncologic problems Social history: Denies tobacco, alcohol, and illicit drug use. Allergies: NKA Review of systems: All remaining review of systems including HEENT, cardiovascular, respiratory, gastrointestinal, genitourinary, musculoskeletal, dermatologic, psychiatric, neurologic are negative unless mentioned in the history of present illness. Past Patient History - Infectious Disease Hx of Infectious Diseases: None - Past Medical History & Family History Past Medical History?: Yes - Past Social History Smoking Status: Never Smoked - CARDIAC Hx Hypertension: Yes - PULMONARY Hx Asthma: Yes - NEUROLOGICAL Hx Neurological Disorder: No - HEENT Hx HEENT Problems: No - RENAL Hx Chronic Kidney Disease: No - ENDOCRINE/METABOLIC Hx Endocrine Disorders: No - HEMATOLOGICAL/ONCOLOGICAL Hx Anemia: Yes - INTEGUMENTARY Hx Dermatological Problems: No - MUSCULOSKELETAL/RHEUMATOLOGICAL Hx Arthritis: Yes (osteoarthritis) Hx Falls: No Hx Rheumatoid Arthritis: Yes - GASTROINTESTINAL Hx Gastrointestinal Disorders: Yes Hx Bowel Surgery: Yes Other/Comment: COLON CANCER STAGE 4 WITH CHEMOTHERAPY, last chemo was august 26 2017. R side port a cath - GENITOURINARY/GYNECOLOGICAL Hx Genitourinary Disorders: No - PSYCHIATRIC Hx Anxiety: Yes Hx Bipolar Disorder: Yes Hx Depression: Yes Hx Schizophrenia: Yes Hx Substance Use: No - SURGICAL HISTORY Hx Surgeries: Yes (SEE COMMENT) Hx Orthopedic Surgery: Yes (left knee TKR 03/2017) Hx Tubal Ligation: Yes (2005) Hx Vascular Access Device: Yes (RIGHT SUBCLAVIAN 2014) Other/Comment: colon cancer surgery april 2014 to remove tumor, rt side subclavian Port - ANESTHESIA Hx Anesthesia: Yes Hx Anesthesia Reactions: No Hx Malignant Hyperthermia: No Meds Allergies/Adverse Reactions: Allergies Allergy/AdvReac Type Severity Reaction Status Date / Time No Known Allergies Allergy Verified 10/05/17 13:46 - Medications Medications: Current Medications Amlodipine Besylate (Norvasc) 5 mg PO DAILY [facility] Last Admin: 10/08/17 13:48 Dose: 5 mg Aspirin (Aspirin) 325 mg PO DAILY [facility] Last Admin: 10/08/17 10:00 Dose: 325 mg Clonazepam (Klonopin) 2 mg PO BID [facility] Last Admin: 10/08/17 17:40 Dose: 2 mg Diclofenac Sodium (Voltaren) 50 mg PO BID [facility] Last Admin: 10/08/17 17:40 Dose: 50 mg Duloxetine HCl (Cymbalta) 60 mg PO DAILY [facility] Last Admin: 10/08/17 10:00 Dose: 60 mg Enoxaparin Sodium (Lovenox) 40 mg SC DAILY [facility] Last Admin: 10/08/17 10:01 Dose: 40 mg Escitalopram Oxalate (Lexapro) 20 mg PO DAILY [facility] Last Admin: 10/08/17 10:01 Dose: 20 mg Home Med (Solifenacin Succinate [Vesicare]) 5 mg PO DAILY [facility] Oxycodone HCl (Oxycodone Immediate Release Tab) 10 mg PO Q3H PRN PRN Reason: Pain,SEVERE (8-10) Last Admin: 10/08/17 17:42 Dose: 10 mg Oxycodone HCl (Oxycodone Immediate Release Tab) 5 mg PO Q3H PRN PRN Reason: FOR SEVERE PAIN 8-10 Last Admin: 10/08/17 17:46 Dose: 5 mg Risperidone (Risperdal Tab) 2 mg PO BID [facility] Last Admin: 10/08/17 17:40 Dose: 2 mg Tramadol HCl (Ultram) 25 mg PO TID PRN PRN Reason: Pain, moderate (4-7) Last Admin: 10/06/17 05:14 Dose: 25 mg Trazodone HCl (Desyrel) 50 mg PO [facility] Last Admin: 10/07/17 22:06 Dose: 50 mg Physical Exam - Head Exam Head Exam: ATRAUMATIC - Eye Exam Eye Exam: Normal appearance - ENT Exam ENT Exam: Mucous Membranes Dry - Respiratory Exam Respiratory Exam: NORMAL BREATHING PATTERN - Cardiovascular Exam Cardiovascular Exam: +S1, +S2 - GI/Abdominal Exam GI & Abdominal Exam: Normal Bowel Sounds - Extremities Exam Extremities exam: Positive for: pedal edema - Neurological Exam Neurological exam: Oriented x3 - Psychiatric Exam Psychiatric exam: Normal Affect, Normal Mood - Skin Skin Exam: Warm Results - Vital Signs Recent Vital Signs: Last Vital Signs Temp 98.4 F 10/08/17 16:59 Pulse 78 10/08/17 16:59 Resp 20 10/08/17 16:59 BP 151/98 H 10/08/17 16:59 Pulse Ox 96 10/08/17 16:59 - Labs Result Diagrams: 10/08/17 06:58 10/08/17 06:58 Labs: Laboratory Results - last 24 hr 10/08/17 10/08/17 06:58 06:58 WBC 4.2 L RBC 4.03 Hgb 10.4 L Hct 31.3 L MCV 77.8 L MCH 25.9 L MCHC 33.3 RDW 18.3 H Plt Count 123 L MPV 8.0 Neut % (Auto) 63.5 Lymph % (Auto) 27.6 [place] % (Auto) 7.1 Eos % (Auto) 1.4 Baso % (Auto) 0.4 Neut # (Auto) 2.7 Lymph # (Auto) 1.2 [place] # (Auto) 0.3 Eos # (Auto) 0.1 Baso # (Auto) 0.0 Sodium 138 Potassium 4.0 Chloride 102 Carbon Dioxide 29 Anion Gap 12 BUN 12 Creatinine 0.9 Est GFR ( Amer) > 60 Est GFR (Non-Af Amer) > 60 Random Glucose 83 Calcium 8.7 Assessment & Plan (1) Pancytopenia Assessment and Plan: secondary to chemotherapy no transfusion or growth factor indication Status: Acute (2) Colon cancer Assessment and Plan: Stage IV lung and liver metastasis restarted on chemotherapy; last given on 09/25/17 outpatient treatment Thank you for this interesting consult. Status: Acute
--- NOTE | 2017-10-08 19:15 | CP.PCM.PN ---
Subjective - Date & Time of Evaluation Date of Evaluation: 10/08/17 Time of Evaluation: 08:15 - Subjective Subjective: clinically same Objective - Vital Signs/Intake and Output Vital Signs (last 24 hours): Temp Pulse Resp BP Pulse Ox 98.4 F 78 20 151/98 H 96 10/08/17 16:59 10/08/17 16:59 10/08/17 16:59 10/08/17 16:59 10/08/17 16:59 - Medications Medications: Current Medications Amlodipine Besylate (Norvasc) 5 mg PO DAILY [facility] Last Admin: 10/08/17 13:48 Dose: 5 mg Aspirin (Aspirin) 325 mg PO DAILY [facility] Last Admin: 10/08/17 10:00 Dose: 325 mg Clonazepam (Klonopin) 2 mg PO BID [facility] Last Admin: 10/08/17 17:40 Dose: 2 mg Diclofenac Sodium (Voltaren) 50 mg PO BID [facility] Last Admin: 10/08/17 17:40 Dose: 50 mg Duloxetine HCl (Cymbalta) 60 mg PO DAILY [facility] Last Admin: 10/08/17 10:00 Dose: 60 mg Enoxaparin Sodium (Lovenox) 40 mg SC DAILY [facility] Last Admin: 10/08/17 10:01 Dose: 40 mg Escitalopram Oxalate (Lexapro) 20 mg PO DAILY [facility] Last Admin: 10/08/17 10:01 Dose: 20 mg Home Med (Solifenacin Succinate [Vesicare]) 5 mg PO DAILY [facility] Oxycodone HCl (Oxycodone Immediate Release Tab) 10 mg PO Q3H PRN PRN Reason: Pain,SEVERE (8-10) Last Admin: 10/08/17 17:42 Dose: 10 mg Oxycodone HCl (Oxycodone Immediate Release Tab) 5 mg PO Q3H PRN PRN Reason: FOR SEVERE PAIN 8-10 Last Admin: 10/08/17 17:46 Dose: 5 mg Risperidone (Risperdal Tab) 2 mg PO BID [facility] Last Admin: 10/08/17 17:40 Dose: 2 mg Tramadol HCl (Ultram) 25 mg PO TID PRN PRN Reason: Pain, moderate (4-7) Last Admin: 10/06/17 05:14 Dose: 25 mg Trazodone HCl (Desyrel) 50 mg PO [facility] Last Admin: 10/07/17 22:06 Dose: 50 mg - Labs Labs: 10/08/17 06:58 10/08/17 06:58 - Constitutional Appears: Well - Head Exam Head Exam: ATRAUMATIC, NORMAL INSPECTION, NORMOCEPHALIC - Eye Exam Eye Exam: EOMI, Normal appearance, PERRL Pupil Exam: NORMAL ACCOMODATION, PERRL - ENT Exam ENT Exam: Mucous Membranes Moist, Normal Exam - Neck Exam Neck Exam: Full ROM, Normal Inspection. absent: Lymphadenopathy - Respiratory Exam Respiratory Exam: Decreased Breath Sounds - Cardiovascular Exam Cardiovascular Exam: REGULAR RHYTHM, +S1, +S2 - GI/Abdominal Exam GI & Abdominal Exam: Soft, Diminished Bowel Sounds - Rectal Exam Rectal Exam: Deferred
[2017-10-08] MEDS: Ciprofloxacin 400mg/200ml D5W 400 MG/200 ML BAG IVPB SCH (21:45)
[2017-10-08] MEDS: metroNIDAZOLE IV 500 mg/100 ml 500 MG/100 ML BAG IVPB SCH (21:46)
[2017-10-08] MEDS ORDERED: Acetaminophen 650mg/20.3ml solution UD PO STA (23:30)
[2017-10-09 06:50] LABS: BASO % 0.3 % (0.0-2.0); EOS # 0.1 K/uL (0.0-0.7); EOS % 1.5 % (0.0-4.0); HEMOGLOBIN 10.9 g/dL (11.0-16.0); LYMPH % 28.3 % (20.0-40.0); MEAN CELL VOLUME 79.2 fL (81.0-99.0); MEAN CORPUSCULAR HEMOGLOBIN 26.1 pg (27.0-31.0); MONO # 0.3 K/uL (0.0-0.8); MONO % 8.6 % (0.0-10.0); NEUT # 2.2 K/uL (1.8-7.0); NEUT % 61.3 % (50.0-75.0); NRBC % 0.2 % (0.0-2.0); RBC 4.16 Mil/uL (3.80-5.20); RED CELL DISTRIBUTION WIDTH 19.1 % (11.5-14.5); WHITE BLOOD COUNT 3.6 K/uL (4.8-10.8)
[2017-10-09 07:23] LABS: BLOOD UREA NITROGEN 14 mg/dL (7-17); GFR AFRICAN-AMERICAN > 60
[2017-10-09 07:24] LABS: CALCIUM 8.6 mg/dl (8.6-10.4); GFR NON-AFRICAN AMERICAN 53
[2017-10-09 07:58] VITALS: BP 163/96; PULSE 71; TEMP 97.8; O2SAT 97
[2017-10-09] MEDS: oxyCODONE 10 mg Immediate Release Tab PO PRN ×2 (08:52→13:15)
[2017-10-09] MEDS: metroNIDAZOLE IV 500 mg/100 ml 500 MG/100 ML BAG IVPB SCH (09:00)
--- NOTE | 2017-10-09 09:01 | CP.PCM.PN ---
Subjective - Date & Time of Evaluation Date of Evaluation: 10/09/17 Time of Evaluation: 09:01 - Subjective Subjective: PGY2 Medicine Note for Dr. Tila Harris Patient seen and examined this morning at bedside. No acute events overnight. Patient's abdominal pain is improving. She is tolerating her diet without nausea or vomiting. She has no other complaints at this time. Denies fevers, chills, nausea, vomiting, diarrhea, constipation, chest pain, SOB, numbness or tingling. Objective - Vital Signs/Intake and Output Vital Signs (last 24 hours): Temp Pulse Resp BP Pulse Ox 97.8 F 71 20 163/96 H 97 10/09/17 07:00 10/09/17 07:00 10/09/17 07:00 10/09/17 07:00 10/09/17 07:00 - Medications Medications: Current Medications Amlodipine Besylate (Norvasc) 5 mg PO DAILY [facility] Last Admin: 10/08/17 13:48 Dose: 5 mg Aspirin (Aspirin) 325 mg PO DAILY [facility] Last Admin: 10/08/17 10:00 Dose: 325 mg Clonazepam (Klonopin) 2 mg PO BID [facility] Last Admin: 10/08/17 17:40 Dose: 2 mg Diclofenac Sodium (Voltaren) 50 mg PO BID [facility] Last Admin: 10/08/17 17:40 Dose: 50 mg Duloxetine HCl (Cymbalta) 60 mg PO DAILY [facility] Last Admin: 10/08/17 10:00 Dose: 60 mg Enoxaparin Sodium (Lovenox) 40 mg SC DAILY [facility] Last Admin: 10/08/17 10:01 Dose: 40 mg Escitalopram Oxalate (Lexapro) 20 mg PO DAILY [facility] Last Admin: 10/08/17 10:01 Dose: 20 mg Home Med (Solifenacin Succinate [Vesicare]) 5 mg PO DAILY [facility] Metronidazole (Flagyl) 500 mg in 100 mls @ 100 mls/hr IVPB Q12H [facility] PRN Reason: Protocol Last Admin: 10/08/17 21:46 Dose: 100 mls/hr Ciprofloxacin (Cipro 400mg/200ml Dsw) 400 mg in 200 mls @ 133 mls/hr IVPB Q12H [facility] PRN Reason: Protocol Last Admin: 10/08/17 21:45 Dose: 133 mls/hr Oxycodone HCl (Oxycodone Immediate Release Tab) 10 mg PO Q3H PRN PRN Reason: Pain,SEVERE (8-10) Last Admin: 10/09/17 08:52 Dose: 10 mg Oxycodone HCl (Oxycodone Immediate Release Tab) 5 mg PO Q3H PRN PRN Reason: FOR SEVERE PAIN 8-10 Last Admin: 10/08/17 21:47 Dose: 5 mg Risperidone (Risperdal Tab) 2 mg PO BID [facility] Last Admin: 10/08/17 17:40 Dose: 2 mg Tramadol HCl (Ultram) 25 mg PO TID PRN PRN Reason: Pain, moderate (4-7) Last Admin: 10/06/17 05:14 Dose: 25 mg Trazodone HCl (Desyrel) 50 mg PO HS [facility] Last Admin: 10/08/17 21:47 Dose: 50 mg - Labs Labs: 10/09/17 06:37 10/09/17 06:37 - Constitutional Appears: Non-toxic, No Acute Distress - Head Exam Head Exam: ATRAUMATIC, NORMOCEPHALIC - Eye Exam Eye Exam: Normal appearance - ENT Exam ENT Exam: Mucous Membranes Moist - Neck Exam Neck Exam: absent: Lymphadenopathy - Respiratory Exam Respiratory Exam: Clear to Ausculation Bilateral, NORMAL BREATHING PATTERN. absent: Accessory Muscle Use, Rales, Rhonchi, Wheezes, Respiratory Distress - Cardiovascular Exam Cardiovascular Exam: REGULAR RHYTHM, +S1, +S2 - GI/Abdominal Exam GI & Abdominal Exam: Soft, Tenderness (LLQ), Normal Bowel Sounds. absent: Distended, Firm, Guarding, Rigid - Extremities Exam Extremities Exam: absent: Calf Tenderness, Pedal Edema - Neurological Exam Neurological Exam: Alert, Awake, Oriented x3 - Psychiatric Exam Psychiatric exam: Normal Affect, Normal Mood - Skin Skin Exam: Dry, Warm Assessment and Plan - Assessment and Plan (Free Text) Plan: Diverticulitis (improving) Abd/Pel CT w/PO&IV 10/08/17: * Right lung upper lobe 1.2 centimeter nodule suspicious for metastasis. * Re- demonstration of multiple lesions in the left liver lobe consistent with liver metastasis. * Again noted is [id number] hepato splenomegaly. * Interval improvement in the previously noted inflammatory changes adjacent to the proximal descending colon consistent with acute diverticulitis since the previous study dated 10/04/2017. Otherwise no significant interval change Abd/Pel CT 10/04/17: * Findings are consistent with segmental acute diverticulitis involving the proximal descending colon. No micro perforation or abscess. * Left colonic diverticulosis. * Little interval change in known metastatic lesions in the left hepatic lobe, the largest measures 4.9 cm. * Mild hepatosplenomegaly and fatty liver. Medications * Cipro 400mg IVPB q12h (started 10/08/17) * Flagyl 500mg IVPB q12h (started 10/08/17) Metastatic colon cancer Stage IV; mets to liver and lung Dr. Heath, Hem/Onc consulted - f/u recs * outpatient chemo * requested Chest/Abd/Pel CT w/PO and IV contrast Obstruction series 10/05/17: Unremarkable radiographs of chest and abdomen. No evidence of mechanical bowel obstruction. Lung biopsy (on 08/19/17): Metastatic adenocarcinoma. Consistent w colonic primary UA: no UTI Trop neg x2 Medications * Oxycodone 15mg PO Q3H PRN for pain * Tramadol 25mg PO TID prn for pain Bipolar disorder Risperdal 2mg PO BID Depression Cymbalta 60mg PO Daily Lexapro 20mg PO Daily HTN Aspirin 325mg PO daily BP elevated continue to monitor Hx of Anemia of Chronic Disease Hgb stable Monitor Anxiety Klonopin 2mg PO TID Osteoarthritis Voltaren 50mg PO BID Insomnia Trazadone 50mg PO HS PPX Heart healthy Diet Lovenox 40mg SC daily Protonix 40mg PO Daily SCDs DISPO: Patient is to be discharged home per Dr. Tila Harris with the following instructions. Patient is to be discharged home per Dr. Tila Harris. Patient is to follow up with her primary care physician within 2-3 days. Patient is to follow up with Dr. Heath (Oncologist) within one week of discharge. - Patient is to continue with Chemotherapy regiment per Dr. Heath Patient is to take medications as directed. - Take Ciprofloxacin 500mg two times per day for the next 10 days. - Take Metronidazole 500mg two times per day for the next 10 days. Do NOT drink any alcohol with this medication! - Started on Norvasc 5mg once daily. If patient experiences any new or worsening symptoms, please go directly to the nearest emergency department. All medical management per Dr. Tila Harris
[2017-10-09] MEDS: Enoxaparin 40 mg Syringe SC SCH (09:36)
[2017-10-09] MEDS: Diclofenac Sodium Delayed Release 50 mg EC Tab PO SCH (09:37)
[2017-10-09] MEDS: Ciprofloxacin 400mg/200ml D5W 400 MG/200 ML BAG IVPB SCH (10:52)
== END 2017-10-09 16:01 | disposition home or self-care (01) | DRG 391 ==
LOC: C.ER 13:25 → C.9E 14:13 → C.3T 22:23 → OBSVTOIN 10-07 16:29
PROVIDERS: ADMIT Internal Medicine Nephrology; ATTEND Internal Medicine Nephrology
DX: K57.32 Diverticulitis of large intestine without perforation or abscess without bleeding (principal); D61.810 Antineoplastic chemotherapy induced pancytopenia; C18.9 Malignant neoplasm of colon, unspecified; C78.00 Secondary malignant neoplasm of unspecified lung; C78.7 Secondary malignant neoplasm of liver and intrahepatic bile duct; F20.9 Schizophrenia, unspecified; F31.9 Bipolar disorder, unspecified; I10 Essential (primary) hypertension; J45.909 Unspecified asthma, uncomplicated; M06.9 Rheumatoid arthritis, unspecified; T45.1X5A Adverse effect of antineoplastic and immunosuppressive drugs, initial encounter; Z87.891 Personal history of nicotine dependence; F41.9 Anxiety disorder, unspecified; G47.00 Insomnia, unspecified; D63.8 Anemia in other chronic diseases classified elsewhere; K57.30 Diverticulosis of large intestine without perforation or abscess without bleeding

== ENCOUNTER 2017-11-07 11:53 | Observation (INO) | payer MEDICARE ==
[2017-11-07 11:54] VITALS: BMI 38.8
--- NOTE | 2017-11-07 12:50 | C.PDOC ---
History Of Present Illness 46 year old female presents to the ED complaining of chest pain and lateral abdominal pain since 4AM this morning, which radiates down the left arm. Patient states she woke up at 4AM with the pain and she took an Oxycodone, but the pain persisted. She denies any fever, chills, SOB, vomiting, or diarrhea. Time Seen by Provider: 11/07/17 12:00 Chief Complaint (Nursing): Weakness/Neurological Deficit History Per: Patient History/Exam Limitations: no limitations Onset/Duration Of Symptoms: Hrs Current Symptoms Are (Timing): Still Present Past Medical History Reviewed: Historical Data, Nursing Documentation, Vital Signs Vital Signs: Last Vital Signs Temp 98.6 F 11/07/17 12:01 Pulse 93 H 11/07/17 14:35 Resp 18 11/07/17 14:35 BP 126/96 H 11/07/17 14:35 Pulse Ox 96 11/07/17 14:59 - Medical History PMH: Anemia, Anxiety, Arthritis (osteoarthritis), Asthma, Back Problems, Bipolar Disorder, Depression, HTN, Malignancy (Colon), Rheumatoid Arthritis, Schizophrenia Denies: Chronic Kidney Disease Other Surgeries: Hx of surgeries - [facility] Procedures CLOSED ENDOSCOPIC BIOPSY OF LARGE INTESTINE (05/23/14) COLONOSCOPY (08/12/14) DX ULTRASOUND-ABDOMEN (05/23/14) INSERTION OF TOTALLY IMPLANTABLE VASC ACCESS DEVIC (05/23/14) LAPAROSCOP LYSIS-PERITONEAL ADHES (05/23/14) LAPAROSCOPIC SIGMOIDECTOMY (05/23/14) OTHER ENDOSCOPY OF SM INTEST (05/23/14) PACKED CELL TRANSFUSION (05/23/14) PERCUTAN NEEDLE BX OF LIVER (05/23/14) REMOVAL OF VAD FROM TRUNK SUBCU/FASCIA, PERC APPROACH (03/16/15) Family History: States: No Known Family Hx - Social History Hx Tobacco Use: No Hx Alcohol Use: No Hx Substance Use: No - Immunization History Hx Tetanus Toxoid Vaccination: Yes Hx Influenza Vaccination: Yes Hx Pneumococcal Vaccination: Yes Review Of Systems Except As Marked, All Systems Reviewed And Found Negative. Constitutional: Negative for: Fever, Chills Cardiovascular: Positive for: Chest Pain Respiratory: Positive for: Cough. Negative for: Shortness of Breath Gastrointestinal: Positive for: Abdominal Pain. Negative for: Nausea, Vomiting , Diarrhea Physical Exam - Physical Exam Appears: Non-toxic Skin: Warm, Dry Head: Atraumatic Eye(s): bilateral: Normal Inspection Nose: Normal Oral Mucosa: Moist Neck: Normal ROM Chest: Tenderness (Anterior left sided chest wall tenderness) Respiratory: Normal Breath Sounds, No Rales, No Rhonchi, No Wheezing Gastrointestinal/Abdominal: Soft, No Tenderness, No Distention, No Guarding, No Rebound Extremity: Normal ROM Extremity: Bilateral: Atraumatic Neurological/Psych: Oriented x3, Normal Speech Gait: Steady ED Course And Treatment - Laboratory Results Result Diagrams: 11/07/17 13:07 11/07/17 13:07 ECG: Interpreted By Me ECG Rhythm: Sinus Rhythm ECG Interpretation: Normal Rate From EC (bpm) O2 Sat by Pulse Oximetry: 96 (RA) Pulse Ox Interpretation: Normal - Radiology CXR: Interpreted by Me CXR Interpretation: Yes: No Acute Disease. No: Infiltrates Medical Decision Making Medical Decision Making: Orders: - EKG - Labwork - Bloodwork - CXR - Fluids Disposition - Disposition Disposition: HOSPITALIZED Disposition Time: 14:58 Condition: STABLE Forms: [employer] (Czech) - POA Present On Arrival: None - Clinical Impression Clinical Impression: Chest pain - PA / OCCUPATIONAL HEALTH COORDINATOR / Resident Statement MD/DO has reviewed & agrees with the documentation as recorded. - Scribe Statement The provider has reviewed the documentation as recorded by the Scribe Ibis Knox All medical record entries made by the Scribe were at my direction and personally dictated by me. I have reviewed the chart and agree that the record accurately reflects my personal performance of the history, physical exam, medical decision making, and the department course for this patient. I have also personally directed, reviewed, and agree with the discharge instructions and disposition.
[2017-11-07 13:13] LABS: BASO % 0.4 % (0.0-2.0); EOS % 0.4 % (0.0-4.0); HEMOGLOBIN 11.4 g/dL (11.0-16.0); LYMPH # 0.8 K/uL (1.0-4.3); LYMPH % 13.8 % (20.0-40.0); MEAN CELL VOLUME 79.2 fL (81.0-99.0); MEAN CORPUSCULAR HEMOGLOBIN 26.3 pg (27.0-31.0); MEAN CORPUSCULAR HGB CONC 33.2 g/dL (33.0-37.0); MEAN PLATELET VOLUME 8.3 fL (7.2-11.7); MONO # 0.3 K/uL (0.0-0.8); MONO % 4.9 % (0.0-10.0); NEUT # 4.6 K/uL (1.8-7.0); NEUT % 80.5 % (50.0-75.0); RBC 4.33 Mil/uL (3.80-5.20); RED CELL DISTRIBUTION WIDTH 18.7 % (11.5-14.5)
--- NOTE | 2017-11-07 13:15 | RAD ---
HISTORY: chest and epigastr abd pain COMPARISON: Chest x-ray performed 09/04/17 TECHNIQUE: Chest PA and lateral FINDINGS: Examination limited by habitus. Right-sided MediPort extends expected location of the cavoatrial junction. LUNGS: No focal consolidation. Subtle nodular density in the periphery of the right upper lobe seen to better advantage on CT performed 10/08/17 Please note that chest x-ray has limited sensitivity for the detection of pulmonary masses. PLEURA: No significant pleural effusion identified. No definite pneumothorax . CARDIOVASCULAR: Heart size appears within normal limits. OSSEOUS STRUCTURES: Degenerative changes of the spine. VISUALIZED UPPER ABDOMEN: Unremarkable. OTHER FINDINGS: None. IMPRESSION: Right-sided MediPort. Subtle nodular density in the periphery of the right upper lobe seen to better advantage on CT performed 10/08/17
[2017-11-07 13:19] LABS: URINE BILIRUBIN NEGATIVE (NEGATIVE); URINE BLOOD NEGATIVE (NEGATIVE); URINE CLARITY Clear (Clear); URINE COLOR Colorless (YELLOW); URINE GLUCOSE (UA) NORMAL (Normal); URINE LEUKOCYTE ESTERASE NEG Leu/uL (Negative); URINE PROTEIN NEGATIVE (NEGATIVE); URINE UROBILINOGEN NORMAL mg/dL (0.2-1.0)
[2017-11-07 13:27] LABS: WHITE BLOOD COUNT 5.7 K/uL (4.8-10.8)
[2017-11-07 13:27] LABS: HCG,QUALITATIVE URINE NEGATIVE (NEGATIVE)
[2017-11-07 13:34] LABS: ALB/GLOB RATIO 1.4 (1.0-2.1); ALT/SGPT 29 U/L (9-52); AST/SGOT 28 U/L (14-36); BLOOD UREA NITROGEN 11 mg/dL (7-17); CALCIUM 8.7 mg/dl (8.6-10.4); GFR NON-AFRICAN AMERICAN 59; LIPASE 97 U/L (23-300)
[2017-11-07] MEDS ORDERED: oxyCODONE 5 mg Immediate Release Tab PO PRN (20:42)
[2017-11-07] MEDS: Tolterodine 4 mg ER Cap PO SCH (23:42)
[2017-11-08 00:24] VITALS: RESP 20
[2017-11-08 01:09] LABS: CK-MB 0.28 ng/mL (0.0-3.38)
[2017-11-08] MEDS: oxyCODONE 5 mg Immediate Release Tab PO PRN ×3 (02:44→19:11)
[2017-11-08 07:48] LABS: CK-MB < 0.22 ng/mL (0.0-3.38)
[2017-11-08] MEDS: Pantoprazole 40 mg EC Tab PO SCH (09:13)
[2017-11-08] MEDS: Diclofenac Sodium Delayed Release 50 mg EC Tab PO SCH ×2 (09:13→18:58)
[2017-11-08] MEDS: Enoxaparin 40 mg Syringe SC SCH (09:14)
[2017-11-08 11:56] LABS: ALB/GLOB RATIO 1.3 (1.0-2.1); ALBUMIN 3.7 g/dL (3.5-5.0); ALT/SGPT 24 U/L (9-52); AST/SGOT 37 U/L (14-36); BLOOD UREA NITROGEN 10 mg/dL (7-17); CALCIUM 8.7 mg/dl (8.6-10.4); GFR NON-AFRICAN AMERICAN > 60
[2017-11-08 13:54] LABS: BASO % 0.2 % (0.0-2.0); EOS % 0.3 % (0.0-4.0); HEMOGLOBIN 10.8 g/dL (11.0-16.0); LYMPH # 1.1 K/uL (1.0-4.3); LYMPH % 18.6 % (20.0-40.0); MEAN CELL VOLUME 79.2 fL (81.0-99.0); MEAN CORPUSCULAR HEMOGLOBIN 26.7 pg (27.0-31.0); MEAN CORPUSCULAR HGB CONC 33.6 g/dL (33.0-37.0); MEAN PLATELET VOLUME 8.6 fL (7.2-11.7); MONO # 0.3 K/uL (0.0-0.8); MONO % 5.9 % (0.0-10.0); NEUT # 4.3 K/uL (1.8-7.0); RBC 4.05 Mil/uL (3.80-5.20); RED CELL DISTRIBUTION WIDTH 18.7 % (11.5-14.5); WHITE BLOOD COUNT 5.7 K/uL (4.8-10.8)
[2017-11-08 14:51] LABS: CK-MB 0.25 ng/mL (0.0-3.38)
--- NOTE | 2017-11-08 15:50 | CP.PCM.HP ---
Past Patient History - Infectious Disease Hx of Infectious Diseases: None - Past Medical History & Family History Past Medical History?: Yes - Past Social History Smoking Status: Never Smoked - CARDIAC Hx Hypertension: Yes - PULMONARY Hx Asthma: Yes - NEUROLOGICAL Hx Neurological Disorder: No - HEENT Hx HEENT Problems: No - RENAL Hx Chronic Kidney Disease: No - ENDOCRINE/METABOLIC Hx Endocrine Disorders: No - HEMATOLOGICAL/ONCOLOGICAL Hx Anemia: Yes - INTEGUMENTARY Hx Dermatological Problems: No - MUSCULOSKELETAL/RHEUMATOLOGICAL Hx Arthritis: Yes (osteoarthritis) Hx Rheumatoid Arthritis: Yes - GASTROINTESTINAL Hx Gastrointestinal Disorders: Yes Hx Bowel Surgery: Yes Other/Comment: COLON CANCER STAGE 4 WITH CHEMOTHERAPY. R side port a cath - GENITOURINARY/GYNECOLOGICAL Hx Genitourinary Disorders: No - PSYCHIATRIC Hx Anxiety: Yes Hx Bipolar Disorder: Yes Hx Depression: Yes Hx Schizophrenia: Yes Hx Substance Use: No - SURGICAL HISTORY Hx Surgeries: Yes (SEE COMMENT) Hx Orthopedic Surgery: Yes (left knee TKR 03/2017) Hx Tubal Ligation: Yes (2005) Hx Vascular Access Device: Yes (RIGHT SUBCLAVIAN 2014) Other/Comment: colon cancer surgery april 2014 to remove tumor, rt side subclavian Port - ANESTHESIA Hx Anesthesia: Yes Hx Anesthesia Reactions: No Hx Malignant Hyperthermia: No Meds Allergies/Adverse Reactions: Allergies Allergy/AdvReac Type Severity Reaction Status Date / Time No Known Allergies Allergy Verified 11/07/17 12:12 Physical Exam - Constitutional Appears: Well - Head Exam Head Exam: ATRAUMATIC, NORMAL INSPECTION, NORMOCEPHALIC - Eye Exam Eye Exam: EOMI, Normal appearance, PERRL Pupil Exam: NORMAL ACCOMODATION, PERRL - ENT Exam ENT Exam: Mucous Membranes Moist, Normal Exam - Neck Exam Neck exam: Positive for: Normal Inspection - Respiratory Exam Respiratory Exam: Decreased Breath Sounds - Cardiovascular Exam Cardiovascular Exam: REGULAR RHYTHM, +S1, +S2 - GI/Abdominal Exam GI & Abdominal Exam: Diminished Bowel Sounds, Soft - Rectal Exam Rectal Exam: Deferred Results - Vital Signs Recent Vital Signs: Last Vital Signs Temp 97.7 F 11/08/17 08:14 Pulse 96 H 11/08/17 09:14 Resp 20 11/08/17 08:14 BP 117/77 11/08/17 09:14 Pulse Ox 97 11/08/17 08:14 - Labs Result Diagrams: 11/08/17 13:44 11/08/17 06:18 Labs: Laboratory Results - last 24 hr 11/08/17 11/08/17 11/08/17 00:35 06:18 13:44 WBC RBC Hgb Hct MCV MCH MCHC RDW Plt Count MPV Neut % (Auto) Lymph % (Auto) [place] % (Auto) Eos % (Auto) Baso % (Auto) Neut # (Auto) Lymph # (Auto) [place] # (Auto) Eos # (Auto) Baso # (Auto) Sodium 138 Potassium 4.5 Chloride 104 Carbon Dioxide 27 Anion Gap 12 BUN 10 Creatinine 0.8 Est GFR ( Amer) > 60 Est GFR (Non-Af Amer) > 60 Random Glucose 87 Calcium 8.7 Total Bilirubin 0.6 AST 37 H D ALT 24 Alkaline Phosphatase 73 Total Creatine Kinase 43 41 49 CK-MB (Mass) 0.28 < 0.22 0.25 Troponin I < 0.0120 < 0.0120 < 0.0120 Total Protein 6.5 Albumin 3.7 Globulin 2.8 Albumin/Globulin Ratio 1.3 11/08/17 13:44 WBC 5.7 RBC 4.05 Hgb 10.8 L Hct 32.0 L MCV 79.2 L MCH 26.7 L MCHC 33.6 RDW 18.7 H Plt Count 127 L MPV 8.6 Neut % (Auto) 75.0 Lymph % (Auto) 18.6 L [place] % (Auto) 5.9 Eos % (Auto) 0.3 Baso % (Auto) 0.2 Neut # (Auto) 4.3 Lymph # (Auto) 1.1 [place] # (Auto) 0.3 Eos # (Auto) 0.0 Baso # (Auto) 0.0 Sodium Potassium Chloride Carbon Dioxide Anion Gap BUN Creatinine Est GFR ( Amer) Est GFR (Non-Af Amer) Random Glucose Calcium Total Bilirubin AST ALT Alkaline Phosphatase Total Creatine Kinase CK-MB (Mass) Troponin I Total Protein Albumin Globulin Albumin/Globulin Ratio
[2017-11-08] MEDS: Tolterodine 4 mg ER Cap PO SCH (22:03)
--- NOTE | 2017-11-08 23:10 | CP.PCM.CON ---
History of Present Illness - History of Present Illness History of Present Illness: 46 F admitted for chest pain Check ECHO and stress test Past Patient History - Infectious Disease Hx of Infectious Diseases: None - Past Medical History & Family History Past Medical History?: Yes - Past Social History Smoking Status: Never Smoked - CARDIAC Hx Hypertension: Yes - PULMONARY Hx Asthma: Yes - NEUROLOGICAL Hx Neurological Disorder: No - HEENT Hx HEENT Problems: No - RENAL Hx Chronic Kidney Disease: No - ENDOCRINE/METABOLIC Hx Endocrine Disorders: No - HEMATOLOGICAL/ONCOLOGICAL Hx Anemia: Yes - INTEGUMENTARY Hx Dermatological Problems: No - MUSCULOSKELETAL/RHEUMATOLOGICAL Hx Arthritis: Yes (osteoarthritis) Hx Rheumatoid Arthritis: Yes - GASTROINTESTINAL Hx Gastrointestinal Disorders: Yes Hx Bowel Surgery: Yes Other/Comment: COLON CANCER STAGE 4 WITH CHEMOTHERAPY. R side port a cath - GENITOURINARY/GYNECOLOGICAL Hx Genitourinary Disorders: No - PSYCHIATRIC Hx Anxiety: Yes Hx Bipolar Disorder: Yes Hx Depression: Yes Hx Schizophrenia: Yes Hx Substance Use: No - SURGICAL HISTORY Hx Surgeries: Yes (SEE COMMENT) Hx Orthopedic Surgery: Yes (left knee TKR 03/2017) Hx Tubal Ligation: Yes (2005) Hx Vascular Access Device: Yes (RIGHT SUBCLAVIAN 2014) Other/Comment: colon cancer surgery april 2014 to remove tumor, rt side subclavian Port - ANESTHESIA Hx Anesthesia: Yes Hx Anesthesia Reactions: No Hx Malignant Hyperthermia: No Meds Allergies/Adverse Reactions: Allergies Allergy/AdvReac Type Severity Reaction Status Date / Time No Known Allergies Allergy Verified 11/07/17 12:12 - Medications Medications: Current Medications Amlodipine Besylate (Norvasc) 5 mg PO DAILY [facility] Last Admin: 11/08/17 09:13 Dose: 5 mg Clonazepam (Klonopin) 2 mg PO TID [facility] Last Admin: 11/08/17 18:58 Dose: 2 mg Diclofenac Sodium (Voltaren) 50 mg PO BID [facility] Last Admin: 11/08/17 18:58 Dose: 50 mg Duloxetine HCl (Cymbalta) 60 mg PO DAILY [facility] Last Admin: 11/08/17 09:13 Dose: 60 mg Enoxaparin Sodium (Lovenox) 40 mg SC DAILY [facility] Last Admin: 11/08/17 09:14 Dose: 40 mg Escitalopram Oxalate (Lexapro) 20 mg PO DAILY [facility] Last Admin: 11/08/17 09:14 Dose: 20 mg Oxycodone HCl (Oxycodone Immediate Release Tab) 15 mg PO Q6 PRN PRN Reason: Pain, moderate (4-7) Last Admin: 11/08/17 19:11 Dose: 15 mg Pantoprazole Sodium (Protonix Ec Tab) 40 mg PO DAILY [facility] Last Admin: 11/08/17 09:13 Dose: 40 mg Risperidone (Risperdal Tab) 2 mg PO BID [facility] Last Admin: 11/08/17 18:58 Dose: 2 mg Tolterodine Tartrate (Detrol La) 4 mg PO Q24H [facility] Last Admin: 11/08/17 22:03 Dose: 4 mg Trazodone HCl (Desyrel) 50 mg PO HS [facility] Last Admin: 11/08/17 22:03 Dose: 50 mg Results - Vital Signs Recent Vital Signs: Last Vital Signs Temp 98.2 F 11/08/17 16:00 Pulse 91 H 11/08/17 16:00 Resp 20 11/08/17 16:00 BP 114/75 11/08/17 16:00 Pulse Ox 95 11/08/17 16:00 - Labs Result Diagrams: 11/08/17 13:44 11/08/17 06:18 Labs: Laboratory Results - last 24 hr 11/08/17 11/08/17 11/08/17 00:35 06:18 13:44 WBC RBC Hgb Hct MCV MCH MCHC RDW Plt Count MPV Neut % (Auto) Lymph % (Auto) [place] % (Auto) Eos % (Auto) Baso % (Auto) Neut # (Auto) Lymph # (Auto) [place] # (Auto) Eos # (Auto) Baso # (Auto) Sodium 138 Potassium 4.5 Chloride 104 Carbon Dioxide 27 Anion Gap 12 BUN 10 Creatinine 0.8 Est GFR ( Amer) > 60 Est GFR (Non-Af Amer) > 60 Random Glucose 87 Calcium 8.7 Total Bilirubin 0.6 AST 37 H D ALT 24 Alkaline Phosphatase 73 Total Creatine Kinase 43 41 49 CK-MB (Mass) 0.28 < 0.22 0.25 Troponin I < 0.0120 < 0.0120 < 0.0120 Total Protein 6.5 Albumin 3.7 Globulin 2.8 Albumin/Globulin Ratio 1.3 11/08/17 13:44 WBC 5.7 RBC 4.05 Hgb 10.8 L Hct 32.0 L MCV 79.2 L MCH 26.7 L MCHC 33.6 RDW 18.7 H Plt Count 127 L MPV 8.6 Neut % (Auto) 75.0 Lymph % (Auto) 18.6 L [place] % (Auto) 5.9 Eos % (Auto) 0.3 Baso % (Auto) 0.2 Neut # (Auto) 4.3 Lymph # (Auto) 1.1 [place] # (Auto) 0.3 Eos # (Auto) 0.0 Baso # (Auto) 0.0 Sodium Potassium Chloride Carbon Dioxide Anion Gap BUN Creatinine Est GFR ( Amer) Est GFR (Non-Af Amer) Random Glucose Calcium Total Bilirubin AST ALT Alkaline Phosphatase Total Creatine Kinase CK-MB (Mass) Troponin I Total Protein Albumin Globulin Albumin/Globulin Ratio
[2017-11-09] MEDS: oxyCODONE 5 mg Immediate Release Tab PO PRN ×2 (03:12→15:13)
[2017-11-09] MEDS: Diclofenac Sodium Delayed Release 50 mg EC Tab PO SCH ×2 (09:33→18:00)
[2017-11-09] MEDS: Enoxaparin 40 mg Syringe SC SCH (09:33)
[2017-11-09] MEDS: Pantoprazole 40 mg EC Tab PO SCH (09:33)
--- NOTE | 2017-11-09 16:05 | CP.PCM.PN ---
Subjective - Date & Time of Evaluation Date of Evaluation: 11/09/17 Time of Evaluation: 11:30 - Subjective Subjective: clinically same Objective - Vital Signs/Intake and Output Vital Signs (last 24 hours): Temp Pulse Resp BP Pulse Ox 97.3 F L 85 20 117/77 97 11/09/17 07:42 11/09/17 09:31 11/09/17 07:42 11/09/17 09:31 11/09/17 07:42 Intake and Output: 11/09/17 11/09/17 06:59 18:59 Intake Total 240 Balance 240 - Medications Medications: Current Medications Amlodipine Besylate (Norvasc) 5 mg PO DAILY [facility] Last Admin: 11/09/17 09:32 Dose: 5 mg Clonazepam (Klonopin) 2 mg PO TID [facility] Last Admin: 11/09/17 13:25 Dose: 2 mg Diclofenac Sodium (Voltaren) 50 mg PO BID [facility] Last Admin: 11/09/17 09:33 Dose: 50 mg Duloxetine HCl (Cymbalta) 60 mg PO DAILY [facility] Last Admin: 11/09/17 09:33 Dose: 60 mg Enoxaparin Sodium (Lovenox) 40 mg SC DAILY [facility] Last Admin: 11/09/17 09:33 Dose: 40 mg Escitalopram Oxalate (Lexapro) 20 mg PO DAILY [facility] Last Admin: 11/09/17 09:33 Dose: 20 mg Oxycodone HCl (Oxycodone Immediate Release Tab) 15 mg PO Q6 PRN PRN Reason: Pain, moderate (4-7) Last Admin: 11/09/17 15:13 Dose: 15 mg Pantoprazole Sodium (Protonix Ec Tab) 40 mg PO DAILY [facility] Last Admin: 11/09/17 09:33 Dose: 40 mg Risperidone (Risperdal Tab) 2 mg PO BID [facility] Last Admin: 11/09/17 09:33 Dose: 2 mg Tolterodine Tartrate (Detrol La) 4 mg PO Q24H [facility] Last Admin: 11/08/17 22:03 Dose: 4 mg Trazodone HCl (Desyrel) 50 mg PO HS [facility] Last Admin: 11/08/17 22:03 Dose: 50 mg - Labs Labs: 11/08/17 13:44 11/08/17 06:18 - Constitutional Appears: Well - Head Exam Head Exam: ATRAUMATIC, NORMAL INSPECTION, NORMOCEPHALIC - Eye Exam Eye Exam: EOMI, Normal appearance, PERRL Pupil Exam: NORMAL ACCOMODATION, PERRL - ENT Exam ENT Exam: Mucous Membranes Moist, Normal Exam - Neck Exam Neck Exam: Full ROM, Normal Inspection. absent: Lymphadenopathy - Respiratory Exam Respiratory Exam: Decreased Breath Sounds - Cardiovascular Exam Cardiovascular Exam: REGULAR RHYTHM, +S1, +S2 - GI/Abdominal Exam GI & Abdominal Exam: Soft, Diminished Bowel Sounds - Rectal Exam Rectal Exam: Deferred
[2017-11-09] MEDS: Tolterodine 4 mg ER Cap PO SCH (22:22)
--- NOTE | 2017-11-09 22:55 | CARD ---
APPROVED REPORT Date of service: 11/07/2017 EKG Measurement Heart [id number] <Conclusion> Normal sinus rhythm Possible Anterior infarct, age undetermined Abnormal ECG
--- NOTE | 2017-11-09 22:56 | CP.PCM.PN ---
Subjective - Date & Time of Evaluation Date of Evaluation: 11/09/17 Time of Evaluation: 09:30 - Subjective Subjective: Patient seen and evaluated Non cardiac chest pains ECHO: Normal EF Can consider stress test on Saturday Objective - Vital Signs/Intake and Output Vital Signs (last 24 hours): Temp Pulse Resp BP Pulse Ox 98.0 F 77 20 115/79 98 11/09/17 15:20 11/09/17 15:20 11/09/17 15:20 11/09/17 15:20 11/09/17 15:20 - Medications Medications: Current Medications Amlodipine Besylate (Norvasc) 5 mg PO DAILY [facility] Last Admin: 11/09/17 09:32 Dose: 5 mg Clonazepam (Klonopin) 2 mg PO TID [facility] Last Admin: 11/09/17 18:00 Dose: 2 mg Diclofenac Sodium (Voltaren) 50 mg PO BID [facility] Last Admin: 11/09/17 18:00 Dose: 50 mg Duloxetine HCl (Cymbalta) 60 mg PO DAILY [facility] Last Admin: 11/09/17 09:33 Dose: 60 mg Enoxaparin Sodium (Lovenox) 40 mg SC DAILY [facility] Last Admin: 11/09/17 09:33 Dose: 40 mg Escitalopram Oxalate (Lexapro) 20 mg PO DAILY [facility] Last Admin: 11/09/17 09:33 Dose: 20 mg Oxycodone HCl (Oxycodone Immediate Release Tab) 15 mg PO Q6 PRN PRN Reason: Pain, moderate (4-7) Last Admin: 11/09/17 15:13 Dose: 15 mg Pantoprazole Sodium (Protonix Ec Tab) 40 mg PO DAILY [facility] Last Admin: 11/09/17 09:33 Dose: 40 mg Risperidone (Risperdal Tab) 2 mg PO BID [facility] Last Admin: 11/09/17 18:00 Dose: 2 mg Tolterodine Tartrate (Detrol La) 4 mg PO Q24H [facility] Last Admin: 11/09/17 22:22 Dose: 4 mg Trazodone HCl (Desyrel) 50 mg PO HS [facility] Last Admin: 11/09/17 22:22 Dose: 50 mg - Labs Labs: 11/08/17 13:44 11/08/17 06:18
[2017-11-10] MEDS: oxyCODONE 5 mg Immediate Release Tab PO PRN ×2 (00:07→06:43)
[2017-11-10] MEDS: Pantoprazole 40 mg EC Tab PO SCH (10:13)
[2017-11-10] MEDS: Enoxaparin 40 mg Syringe SC SCH (10:14)
[2017-11-10] MEDS: Diclofenac Sodium Delayed Release 50 mg EC Tab PO SCH ×2 (10:14→18:49)
--- NOTE | 2017-11-10 14:11 | CP.PCM.PN ---
Subjective - Date & Time of Evaluation Date of Evaluation: 11/10/17 Time of Evaluation: 11:30 - Subjective Subjective: clinically same Objective - Vital Signs/Intake and Output Vital Signs (last 24 hours): Temp Pulse Resp BP Pulse Ox 98.2 F 86 20 111/73 95 11/10/17 08:56 11/10/17 08:56 11/10/17 08:56 11/10/17 08:56 11/10/17 08:56 Intake and Output: 11/10/17 11/10/17 06:59 18:59 Intake Total 500 Balance 500 - Medications Medications: Current Medications Amlodipine Besylate (Norvasc) 5 mg PO DAILY [facility] Last Admin: 11/10/17 10:13 Dose: 5 mg Clonazepam (Klonopin) 2 mg PO TID [facility] Last Admin: 11/10/17 13:30 Dose: 2 mg Diclofenac Sodium (Voltaren) 50 mg PO BID [facility] Last Admin: 11/10/17 10:14 Dose: 50 mg Duloxetine HCl (Cymbalta) 60 mg PO DAILY [facility] Last Admin: 11/10/17 10:14 Dose: 60 mg Enoxaparin Sodium (Lovenox) 40 mg SC DAILY [facility] Last Admin: 11/10/17 10:14 Dose: 40 mg Escitalopram Oxalate (Lexapro) 20 mg PO DAILY [facility] Last Admin: 11/10/17 10:14 Dose: 20 mg Oxycodone HCl (Oxycodone Immediate Release Tab) 15 mg PO Q6 PRN PRN Reason: Pain, moderate (4-7) Last Admin: 11/10/17 06:43 Dose: 15 mg Pantoprazole Sodium (Protonix Ec Tab) 40 mg PO DAILY [facility] Last Admin: 11/10/17 10:13 Dose: 40 mg Risperidone (Risperdal Tab) 2 mg PO BID [facility] Last Admin: 11/10/17 10:13 Dose: 2 mg Tolterodine Tartrate (Detrol La) 4 mg PO Q24H [facility] Last Admin: 11/09/17 22:22 Dose: 4 mg Trazodone HCl (Desyrel) 50 mg PO HS [facility] Last Admin: 11/09/17 22:22 Dose: 50 mg - Labs Labs: 11/08/17 13:44 11/08/17 06:18 - Constitutional Appears: Well - Head Exam Head Exam: ATRAUMATIC, NORMAL INSPECTION, NORMOCEPHALIC - Eye Exam Eye Exam: EOMI, Normal appearance, PERRL Pupil Exam: NORMAL ACCOMODATION, PERRL - ENT Exam ENT Exam: Mucous Membranes Moist, Normal Exam - Neck Exam Neck Exam: Full ROM, Normal Inspection. absent: Lymphadenopathy - Respiratory Exam Respiratory Exam: Decreased Breath Sounds - Cardiovascular Exam Cardiovascular Exam: REGULAR RHYTHM, +S1, +S2 - GI/Abdominal Exam GI & Abdominal Exam: Soft, Diminished Bowel Sounds - Rectal Exam Rectal Exam: Deferred Assessment and Plan - Assessment and Plan (Free Text) Plan: discharge tomorrow if stress test will be next normal Follow-up with the pulmonary Follow-up with the cardiology Continue with the pain medicines Continue clonazepam Follow-up with Dr. sergio Ramon
--- NOTE | 2017-11-10 20:03 | CP.PCM.PN ---
Subjective - Date & Time of Evaluation Date of Evaluation: 11/10/17 Time of Evaluation: 14:10 - Subjective Subjective: Patient seen and evaluated Recurrent chest pain Scheduled for stress test in am Objective - Vital Signs/Intake and Output Vital Signs (last 24 hours): Temp Pulse Resp BP Pulse Ox 97.3 F L 75 20 126/84 96 11/10/17 16:00 11/10/17 16:00 11/10/17 16:00 11/10/17 16:00 11/10/17 16:00 - Medications Medications: Current Medications Amlodipine Besylate (Norvasc) 5 mg PO DAILY [facility] Last Admin: 11/10/17 10:13 Dose: 5 mg Clonazepam (Klonopin) 2 mg PO TID [facility] Last Admin: 11/10/17 18:49 Dose: 2 mg Diclofenac Sodium (Voltaren) 50 mg PO BID [facility] Last Admin: 11/10/17 18:49 Dose: 50 mg Duloxetine HCl (Cymbalta) 60 mg PO DAILY [facility] Last Admin: 11/10/17 10:14 Dose: 60 mg Enoxaparin Sodium (Lovenox) 40 mg SC DAILY [facility] Last Admin: 11/10/17 10:14 Dose: 40 mg Escitalopram Oxalate (Lexapro) 20 mg PO DAILY [facility] Last Admin: 11/10/17 10:14 Dose: 20 mg Oxycodone HCl (Oxycodone Immediate Release Tab) 15 mg PO Q6 PRN PRN Reason: Pain, moderate (4-7) Last Admin: 11/10/17 06:43 Dose: 15 mg Pantoprazole Sodium (Protonix Ec Tab) 40 mg PO DAILY [facility] Last Admin: 11/10/17 10:13 Dose: 40 mg Risperidone (Risperdal Tab) 2 mg PO BID [facility] Last Admin: 11/10/17 18:49 Dose: 2 mg Tolterodine Tartrate (Detrol La) 4 mg PO Q24H [facility] Last Admin: 11/09/17 22:22 Dose: 4 mg Trazodone HCl (Desyrel) 50 mg PO HS [facility] Last Admin: 11/09/17 22:22 Dose: 50 mg - Labs Labs: 11/08/17 13:44 11/08/17 06:18
[2017-11-10] MEDS: Tolterodine 4 mg ER Cap PO SCH (21:53)
[2017-11-11] MEDS: oxyCODONE 5 mg Immediate Release Tab PO PRN ×2 (01:26→12:38)
[2017-11-11] MEDS ORDERED: Caffeine Citrated **INJ** 20 MG/ML IV ONE (07:43)
[2017-11-11] MEDS: Diclofenac Sodium Delayed Release 50 mg EC Tab PO SCH ×2 (09:56→17:17)
[2017-11-11] MEDS: Enoxaparin 40 mg Syringe SC SCH (09:57)
[2017-11-11] MEDS: Pantoprazole 40 mg EC Tab PO SCH (09:57)
--- NOTE | 2017-11-11 15:23 | CP.PCM.PN ---
Subjective - Date & Time of Evaluation Date of Evaluation: 11/11/17 Time of Evaluation: 11:00 - Subjective Subjective: clinically same Objective - Vital Signs/Intake and Output Vital Signs (last 24 hours): Temp Pulse Resp BP Pulse Ox 97.5 F L 81 20 132/79 94 L 11/11/17 08:19 11/11/17 08:19 11/11/17 08:19 11/11/17 08:19 11/11/17 12:00 Intake and Output: 11/11/17 11/11/17 06:59 18:59 Intake Total 500 Balance 500 - Medications Medications: Current Medications Amlodipine Besylate (Norvasc) 5 mg PO DAILY [facility] Last Admin: 11/11/17 09:57 Dose: 5 mg Clonazepam (Klonopin) 2 mg PO TID [facility] Last Admin: 11/11/17 13:30 Dose: 2 mg Diclofenac Sodium (Voltaren) 50 mg PO BID [facility] Last Admin: 11/11/17 09:56 Dose: 50 mg Duloxetine HCl (Cymbalta) 60 mg PO DAILY [facility] Last Admin: 11/11/17 09:55 Dose: 60 mg Enoxaparin Sodium (Lovenox) 40 mg SC DAILY [facility] Last Admin: 11/11/17 09:57 Dose: 40 mg Escitalopram Oxalate (Lexapro) 20 mg PO DAILY [facility] Last Admin: 11/11/17 09:56 Dose: 20 mg Oxycodone HCl (Oxycodone Immediate Release Tab) 15 mg PO Q6 PRN PRN Reason: Pain, moderate (4-7) Last Admin: 11/11/17 12:38 Dose: 15 mg Pantoprazole Sodium (Protonix Ec Tab) 40 mg PO DAILY [facility] Last Admin: 11/11/17 09:57 Dose: 40 mg Risperidone (Risperdal Tab) 2 mg PO BID [facility] Last Admin: 11/11/17 09:56 Dose: 2 mg Tolterodine Tartrate (Detrol La) 4 mg PO Q24H [facility] Last Admin: 11/10/17 21:53 Dose: 4 mg Trazodone HCl (Desyrel) 50 mg PO HS [facility] Last Admin: 11/10/17 21:53 Dose: 50 mg - Labs Labs: 11/08/17 13:44 11/08/17 06:18 - Constitutional Appears: Well - Head Exam Head Exam: ATRAUMATIC, NORMAL INSPECTION, NORMOCEPHALIC - Eye Exam Eye Exam: EOMI, Normal appearance, PERRL Pupil Exam: NORMAL ACCOMODATION, PERRL - ENT Exam ENT Exam: Mucous Membranes Moist, Normal Exam - Neck Exam Neck Exam: Full ROM, Normal Inspection. absent: Lymphadenopathy - Respiratory Exam Respiratory Exam: Decreased Breath Sounds - Cardiovascular Exam Cardiovascular Exam: REGULAR RHYTHM, +S1, +S2 - GI/Abdominal Exam GI & Abdominal Exam: Soft, Diminished Bowel Sounds - Rectal Exam Rectal Exam: Deferred
--- NOTE | 2017-11-11 15:26 | CP.PCM.PN ---
Subjective - Date & Time of Evaluation Date of Evaluation: 11/11/17 Time of Evaluation: 15:26 - Subjective Subjective: PATIENT SEEN AND EXAMINED AT THE BEDSIDE STRESS TEST IS NEG Objective - Vital Signs/Intake and Output Vital Signs (last 24 hours): Temp Pulse Resp BP Pulse Ox 97.5 F L 81 20 132/79 94 L 11/11/17 08:19 11/11/17 08:19 11/11/17 08:19 11/11/17 08:19 11/11/17 12:00 Intake and Output: 11/11/17 11/11/17 06:59 18:59 Intake Total 500 Balance 500 - Medications Medications: Current Medications Amlodipine Besylate (Norvasc) 5 mg PO DAILY [facility] Last Admin: 11/11/17 09:57 Dose: 5 mg Clonazepam (Klonopin) 2 mg PO TID [facility] Last Admin: 11/11/17 13:30 Dose: 2 mg Diclofenac Sodium (Voltaren) 50 mg PO BID [facility] Last Admin: 11/11/17 09:56 Dose: 50 mg Duloxetine HCl (Cymbalta) 60 mg PO DAILY [facility] Last Admin: 11/11/17 09:55 Dose: 60 mg Enoxaparin Sodium (Lovenox) 40 mg SC DAILY [facility] Last Admin: 11/11/17 09:57 Dose: 40 mg Escitalopram Oxalate (Lexapro) 20 mg PO DAILY [facility] Last Admin: 11/11/17 09:56 Dose: 20 mg Oxycodone HCl (Oxycodone Immediate Release Tab) 15 mg PO Q6 PRN PRN Reason: Pain, moderate (4-7) Last Admin: 11/11/17 12:38 Dose: 15 mg Pantoprazole Sodium (Protonix Ec Tab) 40 mg PO DAILY [facility] Last Admin: 11/11/17 09:57 Dose: 40 mg Risperidone (Risperdal Tab) 2 mg PO BID [facility] Last Admin: 11/11/17 09:56 Dose: 2 mg Tolterodine Tartrate (Detrol La) 4 mg PO Q24H [facility] Last Admin: 11/10/17 21:53 Dose: 4 mg Trazodone HCl (Desyrel) 50 mg PO HS [facility] Last Admin: 11/10/17 21:53 Dose: 50 mg - Labs Labs: 11/08/17 13:44 11/08/17 06:18 Assessment and Plan - Assessment and Plan (Free Text) Assessment: FOLLOW UP WITH DR Tila BIANCHI IN HIS OFFICE 1-2 WEEKS -----CALL FOR APPOINTMENT CONTINUE HOME MEDICATION ACTIVITY TOLERATED CALL DR Tila BIANCHI OR GO TO THE EMERGENCY ROOM IF SYMPTOMS RETURN OR WORSENING
[2017-11-11 17:22] VITALS: BP 99/64; PULSE 98; TEMP 97.3; O2SAT 95
--- NOTE | 2017-11-11 23:06 | CARD ---
APPROVED REPORT Date of service: 11/11/2017 Protocol: LEXISCAN Test Type: LEXISCAN STRESS Test Indications: CHEST PAIN Target HR: 172 bpm Resting ECG: NSR Resting Heart Rate: 78 bpm Resting Blood Pressure: 140/80mmHg submaximum (85%): 146 bpm TEST SUMMARY PREINFSNHYPERV.12:[id number]/80.0. INFUSIONDOSE 100:300.00.01.081/.0. [id number]/80.0. PROCEDURE Pharmacologic stress testing was performed using 0.4mg per 5ml of regadenoson given intravenously over 7-10 seconds. POST EXERCISE Reason for Termination: Protocol Completed Target HR: No Max HR: 81 bpm 57% of Maximum Predicted HR: 172 bpm Exercise duration: 00:30 min:sec, 0 Stage Exercise capacity: 1.0METs Max Blood Pressure: 140/80mmHg Blood Pressure response to exercise: normal resting BP - appropriate response Heart Rate response to exercise: appropriate Chest Pain: No, none Angina index: 0 Arrhythmia: No, none ST Change: No, none Deviation: 0 mm INTERPRETATION Stress EKG Conclusion: NEGATIVE LEXISCAN STRESS TEST NORMAL BP RESPONSE TO LEXISCAN NUCLEAR STUDIES TO BE READ SEPARATELY EXAM: Myocardial Perfusion STRESS/REST Imaging Protocol The imaging protocol used to acquire images was Stress Tc-99m/rest Tc-99m 1 day Stress Spect myocardial perfusion imaging was performed in supine position 41 minutes following the injection of 13.2 mCi of Tc-99 Myoview. Gated Rest Spect was performed 40 minutes after intravenous 32.4 mCi Tc-99 Myoview injection. The images were gated to evaluate regional wall motion and calculate ventricular ejection fraction.Images were reconstructed using backfilter projection method in short horizontal and verticle long axis. Spect slices were generated. RESTING DATA EDV84.34rpFZ6.90L/min ESV33.00mlMyocardial Uhgz754.00g Av. Heart Rate77.00bpm EF61.00% STRESS DATA QJR626.52oxBV3.10L/min ESV30.00mlMyocardial Zuwy785.00g EF71.00% Regional WT score at stress:0.00 Regional WM score at stress:0.00 Summed WT score at stress:5.00 Av. Heart Rate83.00bpmSummed WM score at stress:4.00 LV Perf. Quant 17 Seg. SSS3.00 17 Seg. SRS0.00 17 Seg. SDS3.00 Stress Defect Extent (% LAD)0.00Rest Defect Extent (% LAD)0.00Rev. Defect Extent (% LAD)0.00 Stress Defect Extent (% LCX)18.80Rest Defect Extent (% LCX)0.00Rev. Defect Extent (% LCX)16.30 Stress Defect Extent (% RCA)0.00Rest Defect Extent (% RCA)0.00Rev. Defect Extent (% RCA)0.00 Stress Defect Extent (% DIRK)3.90Rest Defect Extent (% DIRK)0.00Rev. Defect Extent (% DIRK)3.00 IMPRESSION Normal Myocardial Perfusion exercise stress study Left Ventricle LV Function:Left ventricle systolic function is normal. The Ejection Fraction is within normal limits. Metabolism/Perfusion Defects: There is no scan evidence of stress-induced ischemia noted. Conclusion 1. There is no scan evidence of stress-induced ischemia noted. 2. Left ventricle systolic function is normal. 3. The Ejection Fraction is within normal limits.
== END 2017-11-11 18:35 | disposition home or self-care (01) ==
LOC: C.ER 11:53 → C.9E 15:23 → C.5S 17:03
PROVIDERS: ADMIT Internal Medicine Nephrology; ATTEND Internal Medicine Nephrology
DX: R07.89 Other chest pain (principal); C18.9 Malignant neoplasm of colon, unspecified; F31.9 Bipolar disorder, unspecified; I10 Essential (primary) hypertension; J45.909 Unspecified asthma, uncomplicated
CPT/HCPCS: 36415; 71046; 78452; 80053; 81001; 82948; 83690; 84484; 84703; 85025; 93005; 93017; 96374; 99285; A9502; G0378; J1650; J2270; J2785

== ENCOUNTER 2017-11-18 12:25 | Inpatient (IN) | payer MEDICARE ==
[2017-11-18 12:25] VITALS: BMI 38.8
--- NOTE | 2017-11-18 12:49 | C.PDOC ---
History Of Present Illness 46yo female, brought to ER for evaluation after patient had a witnessed syncopal episode while getting chemotherapy. Patient was noted to be hypotensive in the field and was given IV NS 300ml; she had an accucheck on 142 at field and currently in ER her accucheck is 138. Patient alert and delayed, able to answer questions appropriately. She reports she had "5 bags" of chemotherapy and states she "didn't feel good." Patient noted to have slurred speech and states that is not normal for her. Otherwise, a full HPI and ROS unavailable due to patient's clinical condition. Time Seen by Provider: 11/18/17 12:27 Chief Complaint (Nursing): Syncope History Per: Patient, EMS History/Exam Limitations: clinical condition Onset/Duration Of Symptoms: Hrs Number Of Syncopal Episodes: 1 Activity At Onset Of Symptoms: Sitting - Symptoms Of CVA Associated Symptoms: Impaired Speech Past Medical History Reviewed: Historical Data, Nursing Documentation, Vital Signs Vital Signs: Last Vital Signs Temp 96.2 F L 11/18/17 12:42 Pulse 77 11/18/17 14:10 Resp 21 11/18/17 14:10 BP 115/62 11/18/17 14:10 Pulse Ox 91 L 11/18/17 14:52 - Medical History PMH: Anemia, Anxiety, Arthritis (osteoarthritis), Asthma, Back Problems, Bipolar Disorder, Depression, HTN, Malignancy (Colon), Rheumatoid Arthritis, Schizophrenia Denies: Chronic Kidney Disease Surgical History: No Surg Hx - [facility] Procedures CLOSED ENDOSCOPIC BIOPSY OF LARGE INTESTINE (05/23/14) COLONOSCOPY (08/12/14) DX ULTRASOUND-ABDOMEN (05/23/14) INSERTION OF TOTALLY IMPLANTABLE VASC ACCESS DEVIC (05/23/14) LAPAROSCOP LYSIS-PERITONEAL ADHES (05/23/14) LAPAROSCOPIC SIGMOIDECTOMY (05/23/14) OTHER ENDOSCOPY OF SM INTEST (05/23/14) PACKED CELL TRANSFUSION (05/23/14) PERCUTAN NEEDLE BX OF LIVER (05/23/14) REMOVAL OF VAD FROM TRUNK SUBCU/FASCIA, PERC APPROACH (03/16/15) Family History: States: No Known Family Hx - Social History Hx Tobacco Use: No Hx Alcohol Use: No Hx Substance Use: No - Immunization History Hx Tetanus Toxoid Vaccination: Yes Hx Influenza Vaccination: Yes Hx Pneumococcal Vaccination: Yes Review Of Systems Review Of Systems: ROS cannot be obtained secondary to pt's inabilty to answer questions. Neurological: Positive for: Change in Speech, Other (syncopal episode). Negative for: Weakness, Numbness Physical Exam - Physical Exam Appears: Non-toxic Skin: Normal Color Head: Atraumatic, Normacephalic Eye(s): bilateral: Normal Inspection, PERRL, EOMI Oral Mucosa: Moist Neck: Normal ROM, Supple Chest: Symmetrical Cardiovascular: Rhythm Regular Respiratory: Normal Breath Sounds Gastrointestinal/Abdominal: Normal Exam, Soft Back: Normal Inspection Extremity: Normal ROM Neurological/Psych: Oriented x3, Normal Motor, Normal Sensation, Expressive Aphasia Other Neurological Findings: No Facial Palsy, No Tongue Deviation Extremity: Right: No Drift, Left: No Drift, Upper: No Drift, Lower: No Drift ED Course And Treatment - Laboratory Results Result Diagrams: 11/18/17 13:41 11/18/17 13:41 ECG: Interpreted By Me, Viewed By Me ECG Rhythm: Sinus Rhythm Interpretation Of ECG: Normal intervals. Normal axis. No ST/T changes. Q- wave in V3 and AVF Rate From EC O2 Sat by Pulse Oximetry: 91 Medical Decision Making Medical Decision Making: Assessment: Syncope r/o CVA Plan: * Labs * CTA Head/Neck * CT Head w/o contrast * IV Fluids 12:[address] Samaniego, neurologist distribution clerk, who will evaluate patient in ER. 13:11 CT Head FINDINGS HEMORRHAGE: No intracranial hemorrhage. BRAIN: Waldrop-white matter differentiation is preserved. There is no mass, mass effect or abnormal extra-axial fluid collection. There is no territorial infarction. The midline sagittal structures are normal. VENTRICLES: There is mild age advanced global parenchymal volume loss and proportionate enlargement of the ventricles and cortical sulci. CALVARIUM: Unremarkable. PARANASAL SINUSES: Unremarkable as visualized. No significant inflammatory changes. MASTOID AIR CELLS: Unremarkable as visualized. No inflammatory changes. OTHER FINDINGS: None. IMPRESSION: No acute intracranial abnormality. If there is a persistent focal neurologic deficit and an ongoing clinical concern for acute infarction, an MRI of the brain without intravenous contrast would be a more sensitive modality for evaluation of hyperacute/acute ischemic infarction. 13:25 CTA Head and Neck FINDINGS: HEAD: Right: The intracranial internal carotid artery, and anterior and middle cerebral arteries are widely patent. Left The intracranial internal carotid artery, and anterior and middle cerebral arteries are widely patent. Posterior circulation: The visualized intracranial vertebral arteries, basilar artery and posterior cerebral arteries are widely patent. There is origin of the right posterior cerebral artery, an anatomic variant. There is no endoluminal filling defect to suggest thrombus. There is no intracranial saccular aneurysm. NECK: There is a three vessel aortic arch. There is no stenosis at the origins of the great vessels at the level of the aortic arch. Right Carotid: On the right, the common carotid, internal carotid and external carotid arteries are widely patent. There is no hemodynamically significant stenosis in the internal carotid artery by NASCET criteria. Left Carotid: On the left, the common carotid, internal carotid and external carotid arteries are widely patent.There is no hemodynamically significant stenosis in the internal carotid arteries. There is no hemodynamically significant stenosis in the internal carotid artery by NASCET criteria. The vertebral arteries are widely patent. The left vertebral artery is hypoplastic, an anatomic variant. The visualized soft tissues of the neck are normal. The visualized brain and cervical spine are within normal limits. There is a 11 mm nodule in the posterior segment of the right upper lobe and 10 mm nodule in the lower medial left apex. IMPRESSION: 1. No evidence of endoluminal thrombus,occlusion or definite significant stenosis in the intracranial arteries. 2. No evidence of hemodynamically significant stenosis in the internal carotid arteries. 3. Patent bilateral vertebral arteries. 4. 11 mm nodule in the posterior segment of the right upper lobe and 10 mm nodule in the left medial apex, concerning for metastasis. 13:26 On reassessment, patient noted to be more awake and alert. No new complaints. 14:[address] Tila Harris due to syncope and TIA Disposition Discussed With DrSwathi: Rosaura Harris Doctor Will See Patient In The: Hospital Counseled Patient/Family Regarding: Studies Performed, Diagnosis - Disposition Disposition: HOSPITALIZED Disposition Time: 14:51 Condition: FAIR Forms: [facility] (Malay) - Clinical Impression Clinical Impression: Syncope, TIA (transient ischemic attack) - Scribe Statement The provider has reviewed the documentation as recorded by the Gloria Rosales Provider Attestation: All medical record entries made by the Christopheribirasema were at my direction and personally dictated by me. I have reviewed the chart and agree that the record accurately reflects my personal performance of the history, physical exam, medical decision making, and the department course for this patient. I have also personally directed, reviewed, and agree with the discharge instructions and disposition. NIHSS Stroke Scale - Date/Time Evaluation Performed Date Performed: 11/18/17 Time Performed: 12:52 When Was NIHSS Performed: Code Stroke - How Severe is the Stroke Level of Consciousness: 1=Drowsy LOC to Questions: 0=Both comments correct LOC to commands: 0=Obeys both correctly Best Gaze: 0=Normal Visual: 0=No visual loss Facial: 0=Normal Motor Arm - Left: 0=No drift Motor Arm - Right: 0=No drift Motor Leg - Left: 0=No drift Motor Leg - Right: 0=No drift Limb Ataxia: 0=Absent Sensory: 0=Normal Best Language: 0=No aphasia Dysarthia: 1=Mild to moderate slurring Extinction & Inattention (Neglect): 0=Normal, no object Score: 2
[2017-11-18] MEDS ORDERED: Iodixanol 320 MG/ML 100 ML BOTTLE IV ONE (12:51)
[2017-11-18] MEDS: Sodium Chloride 0.9% 1,000 ML IV SCH ×3 (13:00→22:10)
--- NOTE | 2017-11-18 13:14 | CT ---
Date of service: 11/18/2017 PROCEDURE: CT HEAD WITHOUT CONTRAST. HISTORY: Code Stroke COMPARISON: 09/04/2017. TECHNIQUE: Axial computed tomography images were obtained through the head/brain without intravenous contrast. Radiation dose: Total exam DLP = 1123.96 mGy-cm. This CT exam was performed using one or more of the following dose reduction techniques: Automated exposure control, adjustment of the mA and/or kV according to patient size, and/or use of iterative reconstruction technique. FINDINGS: HEMORRHAGE: No intracranial hemorrhage. BRAIN: Waldrop-white matter differentiation is preserved. There is no mass, mass effect or abnormal extra-axial fluid collection. There is no territorial infarction. The midline sagittal structures are normal. VENTRICLES: There is mild age advanced global parenchymal volume loss and proportionate enlargement of the ventricles and cortical sulci. CALVARIUM: Unremarkable. PARANASAL SINUSES: Unremarkable as visualized. No significant inflammatory changes. MASTOID AIR CELLS: Unremarkable as visualized. No inflammatory changes. OTHER FINDINGS: None. IMPRESSION: No acute intracranial abnormality. If there is a persistent focal neurologic deficit and an ongoing clinical concern for acute infarction, an MRI of the brain without intravenous contrast would be a more sensitive modality for evaluation of hyperacute/acute ischemic infarction. Important findings were discussed with Dr. Jerry Hurley in the ER on 11/18/2017 at 1:11 p.m.
--- NOTE | 2017-11-18 13:47 | CT ---
PROCEDURE: CTA HEAD AND NECK WITH CONTRAST HISTORY: CVA COMPARISON: None available. TECHNIQUE: Initial noncontrast head CT was performed. Subsequently, CT angiogram of the head and neck were performed after the intravenous administration of 80 mL of Omnipaque 350. Contiguous 1.5mm thick images were obtained in the axial plane of the neck. 2-D coronal and sagittal MPR images were obtained. Imaging postprocessing was performed with 3-D images also obtained. A delayed contrast head CT was also obtained. This CT exam was performed using one or more of the following dose reduction techniques: Automated exposure control, adjustment of the mA and/or kV according to patient size, and/or use of iterative reconstruction technique. Contrast dose: 100 mL Visipaque 320 Radiation dose: Total exam DLP = 620.66 mGy-cm. FINDINGS: HEAD: Right: The intracranial internal carotid artery, and anterior and middle cerebral arteries are widely patent. Left: The intracranial internal carotid artery, and anterior and middle cerebral arteries are widely patent. Posterior circulation: The visualized intracranial vertebral arteries, basilar artery and posterior cerebral arteries are widely patent. There is origin of the right posterior cerebral artery, an anatomic variant. There is no endoluminal filling defect to suggest thrombus. There is no intracranial saccular aneurysm. NECK: There is a three vessel aortic arch. There is no stenosis at the origins of the great vessels at the level of the aortic arch. Right Carotid: On the right, the common carotid, internal carotid and external carotid arteries are widely patent. There is no hemodynamically significant stenosis in the internal carotid artery by NASCET criteria. Left Carotid: On the left, the common carotid, internal carotid and external carotid arteries are widely patent.There is no hemodynamically significant stenosis in the internal carotid arteries. There is no hemodynamically significant stenosis in the internal carotid artery by NASCET criteria. The vertebral arteries are widely patent. The left vertebral artery is hypoplastic, an anatomic variant. The visualized soft tissues of the neck are normal. The visualized brain and cervical spine are within normal limits. There is a 11 mm nodule in the posterior segment of the right upper lobe and 10 mm nodule in the lower medial left apex. IMPRESSION: 1. No evidence of endoluminal thrombus,occlusion or definite significant stenosis in the intracranial arteries. 2. No evidence of hemodynamically significant stenosis in the internal carotid arteries. 3. Patent bilateral vertebral arteries. 4. 11 mm nodule in the posterior segment of the right upper lobe and 10 mm nodule in the left medial apex, concerning for metastasis.
[2017-11-18 14:03] LABS: BASO % 0.5 % (0.0-2.0); EOS % 0.1 % (0.0-4.0); HEMOGLOBIN 12.4 g/dL (11.0-16.0); LYMPH # 0.5 K/uL (1.0-4.3); LYMPH % 6.3 % (20.0-40.0); MEAN CELL VOLUME 79.5 fL (81.0-99.0); MEAN PLATELET VOLUME 8.3 fL (7.2-11.7); MONO # 0.3 K/uL (0.0-0.8); MONO % 4.1 % (0.0-10.0); NEUT # 7.2 K/uL (1.8-7.0); RBC 4.58 Mil/uL (3.80-5.20); RED CELL DISTRIBUTION WIDTH 18.7 % (11.5-14.5); WHITE BLOOD COUNT 8.1 K/uL (4.8-10.8)
[2017-11-18 14:04] LABS: PLATELET COUNT 119 K/uL (130-400)
[2017-11-18 14:17] LABS: ALB/GLOB RATIO 1.2 (1.0-2.1); ALT/SGPT 31 U/L (9-52); AST/SGOT 19 U/L (14-36); BLOOD UREA NITROGEN 11 mg/dL (7-17); CALCIUM 8.1 mg/dl (8.6-10.4); GFR NON-AFRICAN AMERICAN > 60; HDL CHOLESTEROL 44 mg/dL (30-70)
[2017-11-18 14:19] LABS: INR 1.3; PROTHROMBIN TIME 14.2 SECONDS (9.7-12.2)
[2017-11-18 14:24] LABS: LDL CHOLESTEROL 89 mg/dL (0-129)
[2017-11-18 14:28] LABS: BANDS 7 % (0-2); LYMPHOCYTE 5 % (20-40); MONOCYTE 1 % (0-10); NEUTROPHIL 87 % (50-75); PLATELET ESTIMATE SLIGHTLY DECREASED (NORMAL); TOTAL CELLS COUNTED 100
[2017-11-18 14:29] LABS: ANISOCYTOSIS SLIGHT
[2017-11-18] MEDS ORDERED: Aspirin 325 mg EC Tablets PO STA (14:45)
[2017-11-18] MEDS ORDERED: Sodium Chloride 0.9% 1,000 ML ONE (14:46)
[2017-11-18] MEDS ORDERED: Potassium Chloride 20 mEq 100 ML ONE (14:57)
--- NOTE | 2017-11-18 15:34 | RAD ---
Date of service: 11/18/2017 HISTORY: Code Stroke COMPARISON: 11/07/2017. FINDINGS: LUNGS: No active pulmonary disease. PLEURA: No significant pleural effusion identified, no pneumothorax apparent. CARDIOVASCULAR: No radiographic findings to suggest acute or significant cardiovascular disease. Venous access catheter in stable, satisfactory position. OSSEOUS STRUCTURES: No significant abnormalities. VISUALIZED UPPER ABDOMEN: Normal. OTHER FINDINGS: None. IMPRESSION: No active disease. No significant interval change compared to the prior examination(s).
--- NOTE | 2017-11-18 16:47 | CP.PCM.HP ---
Past Patient History - Infectious Disease Hx of Infectious Diseases: None - Past Medical History & Family History Past Medical History?: Yes - Past Social History Smoking Status: Never Smoked - CARDIAC Hx Hypertension: Yes - PULMONARY Hx Asthma: Yes - NEUROLOGICAL Hx Neurological Disorder: No - HEENT Hx HEENT Problems: No - RENAL Hx Chronic Kidney Disease: No - ENDOCRINE/METABOLIC Hx Endocrine Disorders: No - HEMATOLOGICAL/ONCOLOGICAL Hx Anemia: Yes - INTEGUMENTARY Hx Dermatological Problems: No - MUSCULOSKELETAL/RHEUMATOLOGICAL Hx Arthritis: Yes (osteoarthritis) Hx Rheumatoid Arthritis: Yes - GASTROINTESTINAL Hx Gastrointestinal Disorders: Yes Hx Bowel Surgery: Yes Other/Comment: COLON CANCER STAGE 4 WITH CHEMOTHERAPY. R side port a cath - GENITOURINARY/GYNECOLOGICAL Hx Genitourinary Disorders: No - PSYCHIATRIC Hx Anxiety: Yes Hx Bipolar Disorder: Yes Hx Depression: Yes Hx Schizophrenia: Yes Hx Substance Use: No - SURGICAL HISTORY Hx Surgeries: Yes (SEE COMMENT) Hx Orthopedic Surgery: Yes (left knee TKR 03/2017) Hx Tubal Ligation: Yes (2005) Hx Vascular Access Device: Yes (RIGHT SUBCLAVIAN 2014) Other/Comment: colon cancer surgery april 2014 to remove tumor, rt side subclavian Port - ANESTHESIA Hx Anesthesia: Yes Hx Anesthesia Reactions: No Hx Malignant Hyperthermia: No Meds Allergies/Adverse Reactions: Allergies Allergy/AdvReac Type Severity Reaction Status Date / Time No Known Allergies Allergy Verified 11/07/17 12:12 Results - Vital Signs Recent Vital Signs: Last Vital Signs Temp 96.2 F L 11/18/17 12:42 Pulse 77 11/18/17 14:10 Resp 21 11/18/17 14:10 BP 115/62 11/18/17 14:10 Pulse Ox 91 L 11/18/17 15:41 - Labs Result Diagrams: 11/18/17 13:41 11/18/17 13:41 Labs: Laboratory Results - last 24 hr 11/18/17 11/18/17 11/18/17 13:41 13:41 13:41 WBC 8.1 RBC 4.58 Hgb 12.4 Hct 36.4 MCV 79.5 L MCH 27.0 MCHC 34.0 RDW 18.7 H Plt Count 119 L MPV 8.3 Neut % (Auto) 89.0 H Lymph % (Auto) 6.3 L [place] % (Auto) 4.1 Eos % (Auto) 0.1 Baso % (Auto) 0.5 Neut # (Auto) 7.2 H Lymph # (Auto) 0.5 L [place] # (Auto) 0.3 Eos # (Auto) 0.0 Baso # (Auto) 0.0 Neutrophils % (Manual) 87 H Band Neutrophils % 7 H Lymphocytes % (Manual) 5 L Monocytes % (Manual) 1 Platelet Estimate Slightly decreased L Anisocytosis (manual) Slight PT 14.2 H INR 1.3 APTT 29 Sodium 138 Potassium 3.2 L Chloride 105 Carbon Dioxide 23 Anion Gap 13 BUN 11 Creatinine 0.8 Est GFR ( Amer) > 60 Est GFR (Non-Af Amer) > 60 Random Glucose 137 H Hemoglobin A1c Calcium 8.1 L Total Bilirubin 0.5 AST 19 ALT 31 Alkaline Phosphatase 69 Troponin I < 0.0120 Total Protein 5.5 L Albumin 3.0 L Globulin 2.5 Albumin/Globulin Ratio 1.2 Triglycerides 117 D Cholesterol 153 LDL Cholesterol Direct 89 HDL Cholesterol 44 Blood Type Antibody Screen 11/18/17 11/18/17 13:41 13:41 WBC RBC Hgb Hct MCV MCH MCHC RDW Plt Count MPV Neut % (Auto) Lymph % (Auto) [place] % (Auto) Eos % (Auto) Baso % (Auto) Neut # (Auto) Lymph # (Auto) [place] # (Auto) Eos # (Auto) Baso # (Auto) Neutrophils % (Manual) Band Neutrophils % Lymphocytes % (Manual) Monocytes % (Manual) Platelet Estimate Anisocytosis (manual) PT INR APTT Sodium Potassium Chloride Carbon Dioxide Anion Gap BUN Creatinine Est GFR ( Amer) Est GFR (Non-Af Amer) Random Glucose Hemoglobin A1c 4.6 Calcium Total Bilirubin AST ALT Alkaline Phosphatase Troponin I Total Protein Albumin Globulin Albumin/Globulin Ratio Triglycerides Cholesterol LDL Cholesterol Direct HDL Cholesterol Blood Type A POSITIVE Antibody Screen Negative Assessment & Plan - Assessment and Plan (Free Text) Plan: Neuro consultation Cardiology consultations Hemato-oncology consultation Crystal Aspirin Lexapro Klonopin KCl Risperidone IV fluids
[2017-11-18] MEDS: Diclofenac Sodium Delayed Release 50 mg EC Tab PO SCH (20:44)
[2017-11-18] MEDS: oxyCODONE 5 mg Immediate Release Tab PO PRN (22:46)
--- NOTE | 2017-11-18 23:27 | CP.PCM.CON ---
History of Present Illness - History of Present Illness History of Present Illness: 46 year old female with history of depression, stage IV colon cancer with liver and lung metastasis dx in 05/2014, recently restarted on chemotherapy , admitted with syncopal episde. The patient was undergoing chemotherapy treatment today in my office and was noted to lose consciousness. She has received this chemotherapy several times in the past with no problems. She was also noted to have urinary incontinence during this. EMS arrived and brought her to the hospital. A CT head did not reveal pathology. Past medical history: depression, anemia, colon cancer Past surgical history: Knee surgery, portacatheter placement and removal Family history: Denies hematologic and oncologic problems Social history: Denies tobacco, alcohol, and illicit drug use. Allergies: NKA Review of systems: All remaining review of systems including HEENT, cardiovascular, respiratory, gastrointestinal, genitourinary, musculoskeletal, dermatologic, psychiatric, neurologic are negative unless mentioned in the history of present illness. Past Patient History - Infectious Disease Hx of Infectious Diseases: None - Past Medical History & Family History Past Medical History?: Yes - Past Social History Smoking Status: Never Smoked - CARDIAC Hx Hypertension: Yes - PULMONARY Hx Asthma: Yes - NEUROLOGICAL Hx Neurological Disorder: No - HEENT Hx HEENT Problems: No - RENAL Hx Chronic Kidney Disease: No - ENDOCRINE/METABOLIC Hx Endocrine Disorders: No - HEMATOLOGICAL/ONCOLOGICAL Hx Anemia: Yes - INTEGUMENTARY Hx Dermatological Problems: No - MUSCULOSKELETAL/RHEUMATOLOGICAL Hx Arthritis: Yes (osteoarthritis) Hx Falls: Yes Hx Rheumatoid Arthritis: Yes - GASTROINTESTINAL Hx Gastrointestinal Disorders: Yes Hx Bowel Surgery: Yes Other/Comment: COLON CANCER STAGE 4 WITH CHEMOTHERAPY. R side port a cath - GENITOURINARY/GYNECOLOGICAL Hx Genitourinary Disorders: No - PSYCHIATRIC Hx Anxiety: Yes Hx Bipolar Disorder: Yes Hx Depression: Yes Hx Schizophrenia: Yes Hx Substance Use: Yes (hx of cocaine use) - SURGICAL HISTORY Hx Surgeries: Yes (SEE COMMENT) Hx Orthopedic Surgery: Yes (left knee TKR 03/2017) Hx Tubal Ligation: Yes (2005) Hx Vascular Access Device: Yes (RIGHT SUBCLAVIAN 2014) Other/Comment: colon cancer surgery april 2014 to remove tumor, rt side subclavian Port - ANESTHESIA Hx Anesthesia: Yes Hx Anesthesia Reactions: No Hx Malignant Hyperthermia: No Meds Allergies/Adverse Reactions: Allergies Allergy/AdvReac Type Severity Reaction Status Date / Time No Known Allergies Allergy Verified 11/07/17 12:12 - Medications Medications: Current Medications Amlodipine Besylate (Norvasc) 5 mg PO DAILY [facility] Clonazepam (Klonopin) 2 mg PO TID [facility] Last Admin: 11/18/17 20:00 Dose: 2 mg Diclofenac Sodium (Voltaren) 50 mg PO BID [facility] Last Admin: 11/18/17 20:44 Dose: 50 mg Duloxetine HCl (Cymbalta) 60 mg PO DAILY [facility] Escitalopram Oxalate (Lexapro) 20 mg PO DAILY [facility] Sodium Chloride (Sodium Chloride 0.9%) 1,000 mls @ 100 mls/hr IV .Q10H [facility] Last Admin: 11/18/17 22:10 Dose: Not Given Sodium Chloride (Sodium Chloride 0.9%) 1,000 mls @ 75 mls/hr IV .[id number] [facility] Last Admin: 11/18/17 21:39 Dose: 75 mls/hr Oxycodone HCl (Oxycodone Immediate Release Tab) 15 mg PO Q3H PRN PRN Reason: Pain, moderate (4-7) Last Admin: 11/18/17 22:46 Dose: 15 mg Risperidone (Risperdal Tab) 2 mg PO BID [facility] Last Admin: 11/18/17 20:44 Dose: 2 mg Rosuvastatin Calcium (Crestor) 10 mg PO [facility] Last Admin: 11/18/17 21:39 Dose: 10 mg Tolterodine Tartrate (Detrol La) 4 mg PO DAILY [facility] Trazodone HCl (Desyrel) 50 mg PO [facility] Last Admin: 11/18/17 21:39 Dose: 50 mg Physical Exam - Head Exam Head Exam: ATRAUMATIC - Eye Exam Eye Exam: Normal appearance - ENT Exam ENT Exam: Mucous Membranes Dry - Respiratory Exam Respiratory Exam: NORMAL BREATHING PATTERN - Cardiovascular Exam Cardiovascular Exam: +S1, +S2 - GI/Abdominal Exam GI & Abdominal Exam: Normal Bowel Sounds - Extremities Exam Extremities exam: Positive for: pedal edema - Neurological Exam Neurological exam: Oriented x3 - Psychiatric Exam Psychiatric exam: Normal Affect, Normal Mood - Skin Skin Exam: Warm Results - Vital Signs Recent Vital Signs: Last Vital Signs Temp 97.5 F L 11/18/17 21:43 Pulse 69 11/18/17 21:43 Resp 18 11/18/17 21:43 BP 156/72 H 11/18/17 21:43 Pulse Ox 100 11/18/17 21:43 - Labs Result Diagrams: 11/18/17 13:41 11/18/17 13:41 Labs: Laboratory Results - last 24 hr 11/18/17 11/18/17 11/18/17 13:41 13:41 13:41 WBC 8.1 RBC 4.58 Hgb 12.4 Hct 36.4 MCV 79.5 L MCH 27.0 MCHC 34.0 RDW 18.7 H Plt Count 119 L MPV 8.3 Neut % (Auto) 89.0 H Lymph % (Auto) 6.3 L [place] % (Auto) 4.1 Eos % (Auto) 0.1 Baso % (Auto) 0.5 Neut # (Auto) 7.2 H Lymph # (Auto) 0.5 L [place] # (Auto) 0.3 Eos # (Auto) 0.0 Baso # (Auto) 0.0 Neutrophils % (Manual) 87 H Band Neutrophils % 7 H Lymphocytes % (Manual) 5 L Monocytes % (Manual) 1 Platelet Estimate Slightly decreased L Anisocytosis (manual) Slight PT 14.2 H INR 1.3 APTT 29 Sodium 138 Potassium 3.2 L Chloride 105 Carbon Dioxide 23 Anion Gap 13 BUN 11 Creatinine 0.8 Est GFR ( Amer) > 60 Est GFR (Non-Af Amer) > 60 POC Glucose (mg/dL) Random Glucose 137 H Hemoglobin A1c Calcium 8.1 L Total Bilirubin 0.5 AST 19 ALT 31 Alkaline Phosphatase 69 Troponin I < 0.0120 Total Protein 5.5 L Albumin 3.0 L Globulin 2.5 Albumin/Globulin Ratio 1.2 Triglycerides 117 D Cholesterol 153 LDL Cholesterol Direct 89 HDL Cholesterol 44 Blood Type Antibody Screen 11/18/17 11/18/17 11/18/17 13:41 13:41 21:44 WBC RBC Hgb Hct MCV MCH MCHC RDW Plt Count MPV Neut % (Auto) Lymph % (Auto) [place] % (Auto) Eos % (Auto) Baso % (Auto) Neut # (Auto) Lymph # (Auto) [place] # (Auto) Eos # (Auto) Baso # (Auto) Neutrophils % (Manual) Band Neutrophils % Lymphocytes % (Manual) Monocytes % (Manual) Platelet Estimate Anisocytosis (manual) PT INR APTT Sodium Potassium Chloride Carbon Dioxide Anion Gap BUN Creatinine Est GFR ( Amer) Est GFR (Non-Af Amer) POC Glucose (mg/dL) 78 Random Glucose Hemoglobin A1c 4.6 Calcium Total Bilirubin AST ALT Alkaline Phosphatase Troponin I Total Protein Albumin Globulin Albumin/Globulin Ratio Triglycerides Cholesterol LDL Cholesterol Direct HDL Cholesterol Blood Type A POSITIVE Antibody Screen Negative Assessment & Plan (1) Syncope Assessment and Plan: rule out seizure; neurology evaluation cardiology evaluation Status: Acute (2) Thrombocytopenia Assessment and Plan: mild secondary to chemotherapy suspect patient is drinking alcohol as well Status: Acute (3) Colon cancer Assessment and Plan: lung and liver metastasis on outpatient chemotherapy with 5-FU, oxaliplatin and Avastin Thank you for this interesting consult. Status: Acute
[2017-11-18 23:38] LABS: BARBITURATES, UR NEGATIVE (NEGATIVE); OPIATES, UR NEGATIVE (NEGATIVE); PHENCYCLIDINE, UR NEGATIVE (NEGATIVE)
[2017-11-18 23:41] LABS: CK-MB 0.94 ng/mL (0.0-3.38)
[2017-11-18 23:43] LABS: BENZODIAZEPINES, UR POSITIVE (NEGATIVE)
[2017-11-19 01:22] VITALS: RESP 20
[2017-11-19] MEDS: oxyCODONE 5 mg Immediate Release Tab PO PRN ×3 (02:17→17:13)
[2017-11-19 08:46] LABS: CK-MB 0.65 ng/mL (0.0-3.38)
[2017-11-19 09:25] LABS: PROLACTIN 93.4 ng/mL (3.0-18.9)
[2017-11-19] MEDS: Diclofenac Sodium Delayed Release 50 mg EC Tab PO SCH ×2 (10:42→17:13)
[2017-11-19] MEDS: Sodium Chloride 0.9% 1,000 ML IV SCH (11:20)
--- NOTE | 2017-11-19 13:47 | CP.PCM.PN ---
Subjective - Date & Time of Evaluation Date of Evaluation: 11/19/17 Time of Evaluation: 13:28 - Subjective Subjective: PGY2 Medicine Note for Dr. Tila Harris Patient seen and examined this morning at bedside. No acute events overnight. She is resting comfortably in bed. She reports passing out yesterday while receiving chemo yesterday in Dr. Heath's office. Patient was noted to have urinary incontinence during syncopal episode. Patient denies any weakness or numbness today. Denies fevers, chills, nausea, vomiting, diarrhea, chest pain, shortness of breath, numbness or tingling. Past medical history: bipolar disorder, depression and metastatic colon cancer to liver and lungs Past surgical history: Knee surgery, portacatheter placement and removal Family history: Denies hematologic and oncologic problems Social history: Denies tobacco, alcohol, and illicit drug use. Allergies: NKDA Objective - Vital Signs/Intake and Output Vital Signs (last 24 hours): Temp Pulse Resp BP Pulse Ox 98.1 F 95 H 20 125/73 98 11/19/17 07:00 11/19/17 07:00 11/19/17 07:00 11/19/17 07:00 11/19/17 07:00 - Medications Medications: Current Medications Amlodipine Besylate (Norvasc) 5 mg PO DAILY [facility] Clonazepam (Klonopin) 2 mg PO TID [facility] Last Admin: 11/18/17 20:00 Dose: 2 mg Diclofenac Sodium (Voltaren) 50 mg PO BID [facility] Last Admin: 11/18/17 20:44 Dose: 50 mg Duloxetine HCl (Cymbalta) 60 mg PO DAILY [facility] Escitalopram Oxalate (Lexapro) 20 mg PO DAILY [facility] Heparin Sodium (Porcine) (Heparin) 5,000 units SC Q12 [facility] Sodium Chloride (Sodium Chloride 0.9%) 1,000 mls @ 100 mls/hr IV .Q10H [facility] Last Admin: 11/18/17 22:10 Dose: Not Given Sodium Chloride (Sodium Chloride 0.9%) 1,000 mls @ 75 mls/hr IV .[id number] [facility] Last Admin: 11/18/17 21:39 Dose: 75 mls/hr Lorazepam (Ativan) 1 mg IVP ONCE PRN Stop: 11/20/17 08:00 Oxycodone HCl (Oxycodone Immediate Release Tab) 15 mg PO Q3H PRN PRN Reason: Pain, moderate (4-7) Last Admin: 11/19/17 02:17 Dose: 15 mg Risperidone (Risperdal Tab) 2 mg PO BID [facility] Last Admin: 11/18/17 20:44 Dose: 2 mg Rosuvastatin Calcium (Crestor) 10 mg PO HS [facility] Last Admin: 11/18/17 21:39 Dose: 10 mg Tolterodine Tartrate (Detrol La) 4 mg PO DAILY [facility] Trazodone HCl (Desyrel) 50 mg PO HS [facility] Last Admin: 11/18/17 21:39 Dose: 50 mg - Labs Labs: 11/18/17 13:41 11/18/17 13:41 PT 14.2 SECONDS (9.7-12.2) H 11/18/17 13:41 INR 1.3 11/18/17 13:41 APTT 29 SECONDS (21-34) 11/18/17 13:41 - Constitutional Appears: Non-toxic, No Acute Distress - Head Exam Head Exam: ATRAUMATIC, NORMOCEPHALIC - Eye Exam Eye Exam: EOMI, Normal appearance, PERRL Pupil Exam: NORMAL ACCOMODATION, PERRL - ENT Exam ENT Exam: Mucous Membranes Moist - Neck Exam Neck Exam: Normal Inspection. absent: Lymphadenopathy - Respiratory Exam Respiratory Exam: Clear to Ausculation Bilateral, NORMAL BREATHING PATTERN. absent: Accessory Muscle Use, Rales, Rhonchi, Wheezes, Respiratory Distress - Cardiovascular Exam Cardiovascular Exam: REGULAR RHYTHM, +S1, +S2 - GI/Abdominal Exam GI & Abdominal Exam: Soft, Tenderness (left flank). absent: Distended, Firm, Guarding, Rigid - Extremities Exam Extremities Exam: Normal Inspection. absent: Calf Tenderness, Pedal Edema - Neurological Exam Neurological Exam: Alert, Awake, CN II-XII Intact, Oriented x3 Neuro motor strength exam: Left Upper Extremity: 5, Right Upper Extremity: 5, Left Lower Extremity: 5, Right Lower Extremity: 5 - Psychiatric Exam Psychiatric exam: Normal Affect, Normal Mood - Skin Skin Exam: Dry, Warm Assessment and Plan - Assessment and Plan (Free Text) Plan: Syncope Code Stroke Neurology consulted, Dr. Booth - f/u recs Cardiology consulted, Dr. Miller - f/u recs Head CT w/o (11/18/17): * No acute intracranial abnormality. If there is a persistent focal neurologic deficit and an ongoing clinical concern for acute infarction, an MRI of the brain without intravenous contrast would be a more sensitive modality for evaluation of hyperacute/acute ischemic infarction. CTA Head and Neck (11/18/17): * No evidence of endoluminal thrombus,occlusion or definite significant stenosis in the intracranial arteries. * No evidence of hemodynamically significant stenosis in the internal carotid arteries. * Patent bilateral vertebral arteries. * 11 mm nodule in the posterior segment of the right upper lobe and 10 mm nodule in the left medial apex, concerning for metastasis. CXR (11/18/17): * No active disease. No significant interval change compared to the prior examination(s). Utox: positive for Benzodiazepines Prolactin (11/19) 93.4 Trop negative x3 Lipid Panel: HDL 44, LDL 89 and Trigly 117 Lipase 44 Hgb A1c 4.6 Neuro exam is unremarkable. Awaiting recs from Dr. Booth and Dr. Miller. Metastatic colon cancer Stage IV; mets to liver and lung Dr. Heath, Hem/Onc consulted - f/u recs * outpatient chemo * thrombocytopenia 2/2 chemo Lung biopsy (on 08/19/17): Metastatic adenocarcinoma. Consistent w colonic primary Continue home medications: * Oxycodone 15mg PO Q3H PRN for pain * Tramadol 25mg PO TID prn for pain Bipolar disorder Continue home medication: Risperdal 2mg PO BID Depression Continue home medication: Cymbalta 60mg PO Daily Continue home medication: Lexapro 20mg PO Daily HTN Continue home medication: Amlodipine 5mg PO daily BP elevated continue to monitor Hx of Anemia of Chronic Disease Hgb stable Monitor Anxiety Continue home medication: Klonopin 2mg PO TID Insomnia Continue home medication: Trazadone 50mg PO HS Prophylactic Care Heparin 5,000u SC q12h Protonix 40mg PO Daily SCDs All medical management per Dr. Tila Harris
--- NOTE | 2017-11-19 17:31 | CP.PCM.PN ---
Subjective - Date & Time of Evaluation Date of Evaluation: 11/19/17 Time of Evaluation: 09:15 - Subjective Subjective: clinically same Objective - Vital Signs/Intake and Output Vital Signs (last 24 hours): Temp Pulse Resp BP Pulse Ox 98.1 F 101 H 20 123/80 95 11/19/17 16:00 11/19/17 16:00 11/19/17 16:00 11/19/17 16:00 11/19/17 16:00 - Medications Medications: Current Medications Amlodipine Besylate (Norvasc) 5 mg PO DAILY [facility] Clonazepam (Klonopin) 2 mg PO TID [facility] Last Admin: 11/19/17 17:13 Dose: 2 mg Diclofenac Sodium (Voltaren) 50 mg PO BID [facility] Last Admin: 11/19/17 17:13 Dose: 50 mg Duloxetine HCl (Cymbalta) 60 mg PO DAILY [facility] Escitalopram Oxalate (Lexapro) 20 mg PO DAILY [facility] Heparin Sodium (Porcine) (Heparin) 5,000 units SC Q12 [facility] Sodium Chloride (Sodium Chloride 0.9%) 1,000 mls @ 75 mls/hr IV .[id number] [facility] Last Admin: 11/18/17 21:39 Dose: 75 mls/hr Lorazepam (Ativan) 1 mg IVP ONCE PRN Stop: 11/20/17 08:00 Oxycodone HCl (Oxycodone Immediate Release Tab) 15 mg PO Q3H PRN PRN Reason: Pain, moderate (4-7) Last Admin: 11/19/17 17:13 Dose: 15 mg Pantoprazole Sodium (Protonix Ec Tab) 40 mg PO DAILY [facility] Risperidone (Risperdal Tab) 2 mg PO BID [facility] Last Admin: 11/19/17 17:13 Dose: 2 mg Rosuvastatin Calcium (Crestor) 10 mg PO HS [facility] Last Admin: 11/18/17 21:39 Dose: 10 mg Tolterodine Tartrate (Detrol La) 4 mg PO DAILY [facility] Trazodone HCl (Desyrel) 50 mg PO HS [facility] Last Admin: 11/18/17 21:39 Dose: 50 mg - Labs Labs: 11/18/17 13:41 11/18/17 13:41 PT 14.2 SECONDS (9.7-12.2) H 11/18/17 13:41 INR 1.3 11/18/17 13:41 APTT 29 SECONDS (21-34) 11/18/17 13:41 - Constitutional Appears: Well - Head Exam Head Exam: ATRAUMATIC, NORMAL INSPECTION, NORMOCEPHALIC - Eye Exam Eye Exam: EOMI, Normal appearance, PERRL Pupil Exam: NORMAL ACCOMODATION, PERRL - ENT Exam ENT Exam: Mucous Membranes Moist, Normal Exam - Neck Exam Neck Exam: Full ROM, Normal Inspection. absent: Lymphadenopathy - Respiratory Exam Respiratory Exam: Decreased Breath Sounds - Cardiovascular Exam Cardiovascular Exam: REGULAR RHYTHM, +S1, +S2 - GI/Abdominal Exam GI & Abdominal Exam: Soft, Diminished Bowel Sounds - Rectal Exam Rectal Exam: Deferred
--- NOTE | 2017-11-19 19:24 | CON ---
DATE: 11/19/2017 REASON FOR CONSULTATION: Syncopal attack. CHIEF COMPLAINT: The patient was brought in from home into the [facility] Emergency Room with a history of passing out while she was getting chemotherapy. From neurological point of view, I was called into evaluate her for further management. HISTORY OF PRESENTING ILLNESS: Ms. Kenya Hsieh is a 46-year-old right-handed moderately obese female brought into [facility] following chemotherapy. She was witnessed to pass out with the urinary incontinence. No witnessed tonic-clonic activities being observed during the process. The patient was found to have normal blood sugar while she was having this episode. No similar episodes happened in the past. PAST MEDICAL HISTORY: In 2014, she was diagnosed as colon cancer, had colectomy following this, she has been getting chemotherapy as per the schedule. She also having metastatic lung as well as liver disease related to her colon cancer. Anxiety disorder, hypertension, dyslipidemia. Denies smoking or alcohol use. ALLERGIES: NO KNOWN ALLERGIES. REVIEW OF SYSTEMS: A 12-point system being reviewed. From neuro, new syncopal attack. PHYSICAL EXAMINATION: VITAL SIGNS: Blood pressure 100/65, pulse rate 78, respiratory rate 16, temperature afebrile. NECK: Supple. No carotid bruit. HEART: Sounds regular. CHEST: Fair air entry. EXTREMITIES: No edema in legs. NEUROLOGICAL: Mental status, she is awake, alert and oriented to person, place and time. Speech is clear. Naming, repetition, fluency, comprehension all within normal. Cranial nerve, visual field intact. Pupils reactive to light. Extraocular movement normal. No nystagmus. No facial sensory deficit. No facial asymmetry. Hearing is normal. Tongue is midline. Good gag. Motor examination on outstretched hand with eyes closed, no drift noted. Power is symmetric on either side. Deep tendon reflexes biceps, brachialis, triceps absent, both knees are absent. Both ankles are absent. Plantars are downgoing. Sensory, bilateral distal symmetric sensorimotor neuropathy. Coordination, finger-nose test is intact. Gait deferred at this time. CONCLUSION: As per neurological examination, Ms. Hsieh has been presenting with syncopal attack while she was getting chemotherapy. The current examination shows bilateral distal symmetric sensorimotor neuropathy. However, the syncopal attack, which is not explained at present is probably related to hypoperfusion superimposed with her multiple medication for her depression. Considering her significant history of cancer and metastatic process, central nervous system process should be ruled out related to this problem. RECOMMENDATIONS: 1. MRI of the brain with and without gadolinium to rule out any metastatic process or ischemic process. 2. Carotid Doppler to rule out any stenosis. 3. The patient also need an electroencephalogram to rule out nonconvulsive seizures. 4. The patient should be kept on proper hydration and keep followup fall precaution. 5. No antiepileptic drug is needed. The patient definitely need to be followed by psychiatrist to tailor off unwanted SSRI, sedatives and atypical neuroleptics. The patient will be followed closely with you. ADDENDUM: The patient's CT of the head being reviewed, no acute pathology. The patient did have a CT angiogram to rule out any stenosis intracerebral as well as carotid artery. No significant stenosis at all. The patient can be benefited Ativan 1 mg IV during the process for MRI and because the patient is requested for be kept. German Booth MD [email or web address]
[2017-11-19] MEDS: Potassium Chloride 10 mEq ER Tab PO SCH (20:47)
[2017-11-19] MEDS: Tolterodine 4 mg ER Cap PO SCH (21:27)
[2017-11-20] MEDS: oxyCODONE 5 mg Immediate Release Tab PO PRN ×3 (00:23→18:17)
[2017-11-20] MEDS: Sodium Chloride 0.9% 1,000 ML IV SCH ×2 (00:29→14:23)
[2017-11-20] MEDS: Potassium Chloride 10 mEq ER Tab PO SCH (00:30)
[2017-11-20 07:37] LABS: BASO % 0.4 % (0.0-2.0); EOS # 0.1 K/uL (0.0-0.7); EOS % 1.6 % (0.0-4.0); LYMPH # 0.6 K/uL (1.0-4.3); LYMPH % 15.2 % (20.0-40.0); MEAN CELL VOLUME 80.3 fL (81.0-99.0); MEAN CORPUSCULAR HEMOGLOBIN 27.2 pg (27.0-31.0); MEAN CORPUSCULAR HGB CONC 33.9 g/dL (33.0-37.0); MEAN PLATELET VOLUME 8.3 fL (7.2-11.7); MONO # 0.3 K/uL (0.0-0.8); MONO % 8.4 % (0.0-10.0); NEUT # 3.1 K/uL (1.8-7.0); NEUT % 74.4 % (50.0-75.0); RBC 3.76 Mil/uL (3.80-5.20); RED CELL DISTRIBUTION WIDTH 18.4 % (11.5-14.5); WHITE BLOOD COUNT 4.1 K/uL (4.8-10.8)
[2017-11-20 07:57] LABS: HEMOGLOBIN 10.2 g/dL (11.0-16.0)
[2017-11-20 07:58] LABS: ALB/GLOB RATIO 1.3 (1.0-2.1); ALBUMIN 3.2 g/dL (3.5-5.0); ALT/SGPT 29 U/L (9-52); AST/SGOT 22 U/L (14-36); BLOOD UREA NITROGEN 8 mg/dL (7-17); CALCIUM 7.6 mg/dl (8.6-10.4); GFR NON-AFRICAN AMERICAN > 60
[2017-11-20] MEDS: Pantoprazole 40 mg EC Tab PO SCH (09:19)
[2017-11-20] MEDS: Diclofenac Sodium Delayed Release 50 mg EC Tab PO SCH ×2 (09:22→17:39)
--- NOTE | 2017-11-20 10:10 | CP.PCM.PN ---
Subjective - Date & Time of Evaluation Date of Evaluation: 11/20/17 Time of Evaluation: 14:45 - Subjective Subjective: PGY 3 Med Note- Dr. Dionisio Harris's service Patient with history of colon cancer with metastasis seen and examined in no apparent acute distress. Patient told of the events that led to current admission. She stated that she was receiving chemotherapy at Dr. Heath's office when she was told that she became unresponsive. She states that she is really not too sure of the events. She states that she could not recall any profound weakness. She denies chest pain, palpitations, nausea, vomiting, subjective changes in temperature, weakness at this time. Objective - Vital Signs/Intake and Output Vital Signs (last 24 hours): Temp Pulse Resp BP Pulse Ox 98.2 F 90 20 137/91 H 97 11/20/17 07:00 11/20/17 07:00 11/20/17 07:00 11/20/17 07:00 11/20/17 07:00 Intake and Output: 11/20/17 11/20/17 06:59 18:59 Intake Total 600 Balance 600 - Medications Medications: Current Medications Amlodipine Besylate (Norvasc) 5 mg PO DAILY [facility] Last Admin: 11/20/17 09:19 Dose: 5 mg Clonazepam (Klonopin) 2 mg PO TID [facility] Last Admin: 11/20/17 09:19 Dose: 2 mg Diclofenac Sodium (Voltaren) 50 mg PO BID [facility] Last Admin: 11/20/17 09:22 Dose: 50 mg Duloxetine HCl (Cymbalta) 60 mg PO DAILY [facility] Last Admin: 11/20/17 09:21 Dose: 60 mg Escitalopram Oxalate (Lexapro) 20 mg PO DAILY [facility] Last Admin: 11/20/17 09:22 Dose: 20 mg Heparin Sodium (Porcine) (Heparin) 5,000 units SC Q12 [facility] Last Admin: 11/20/17 09:21 Dose: 5,000 units Sodium Chloride (Sodium Chloride 0.9%) 1,000 mls @ 75 mls/hr IV .[id number] [facility] Last Admin: 11/20/17 00:29 Dose: 75 mls/hr Oxycodone HCl (Oxycodone Immediate Release Tab) 15 mg PO Q3H PRN PRN Reason: Pain, moderate (4-7) Last Admin: 11/20/17 09:20 Dose: 15 mg Pantoprazole Sodium (Protonix Ec Tab) 40 mg PO DAILY [facility] Last Admin: 11/20/17 09:19 Dose: 40 mg Risperidone (Risperdal Tab) 2 mg PO BID [facility] Last Admin: 11/19/17 17:13 Dose: 2 mg Rosuvastatin Calcium (Crestor) 10 mg PO HS [facility] Last Admin: 11/19/17 21:26 Dose: 10 mg Tolterodine Tartrate (Detrol La) 4 mg PO DAILY [facility] Last Admin: 11/19/17 21:27 Dose: 4 mg Trazodone HCl (Desyrel) 50 mg PO HS [facility] Last Admin: 11/19/17 21:26 Dose: 50 mg - Labs Labs: 11/20/17 07:23 11/20/17 07:23 PT 14.2 SECONDS (9.7-12.2) H 11/18/17 13:41 INR 1.3 11/18/17 13:41 APTT 29 SECONDS (21-34) 11/18/17 13:41 - Constitutional Appears: Non-toxic, No Acute Distress - Head Exam Head Exam: ATRAUMATIC, NORMAL INSPECTION, NORMOCEPHALIC - Eye Exam Eye Exam: EOMI Pupil Exam: NORMAL ACCOMODATION - ENT Exam ENT Exam: Mucous Membranes Moist - Neck Exam Neck Exam: Full ROM - Respiratory Exam Respiratory Exam: NORMAL BREATHING PATTERN - Cardiovascular Exam Cardiovascular Exam: +S1, +S2 - GI/Abdominal Exam GI & Abdominal Exam: Soft, Normal Bowel Sounds - Extremities Exam Extremities Exam: absent: Pedal Edema, Tenderness - Neurological Exam Neurological Exam: Alert, Awake, Oriented x3 Neuro motor strength exam: Left Upper Extremity: 5, Right Upper Extremity: 5, Left Lower Extremity: 5, Right Lower Extremity: 5 Additional comments: finger to nosetest negative, sensation and motor strength intact - Psychiatric Exam Psychiatric exam: Normal Affect, Normal Mood - Skin Skin Exam: Dry, Normal Color, Warm Assessment and Plan - Assessment and Plan (Free Text) Assessment: Syncope Neurology consulted, Dr. Booth - Ruling out stroke. F/U recs Cardiology consulted, Dr. Miller - F/U recs Head CT w/o (11/18/17): * No acute intracranial abnormality. * Will f/u with Brain MRI as it is more specific for brain pathology CTA Head and Neck (11/18/17): * No evidence of endoluminal thrombus, occlusion or definite significant steno sis in the intracranial arteries. * No evidence of hemodynamically significant stenosis in the internal carotid arteries. * Patent bilateral vertebral arteries. * 11 mm nodule in the posterior segment of the right upper lobe and 10 mm nodule in the left medial apex, concerning for metastasis. UDS: positive for Benzodiazepines Prolactin (11/19) 93.4 Trop negative x3 Lipid Panel: HDL 44, LDL 89 and Trigly 117 Lipase 44 Hgb A1c 4.6 F/U Brain MRI F/U Neuro and Cardiology recommendations ASA 81 mg started. Metastatic colon cancer Stage IV; mets to liver and lung Dr. Heath, Hem/Onc consulted - f/u recs * outpatient chemo * thrombocytopenia secondary to chemo Lung biopsy (on 08/19/17): Metastatic adenocarcinoma. Consistent w/ primary colon source Continue home medications: * Oxycodone 15mg PO Q3H PRN for pain * Tramadol 25mg PO TID prn for pain HTN Continue home medication: Amlodipine 5mg PO daily BP elevated continue to monitor Hx of Anemia of Chronic Disease Hgb stable Monitor Bipolar disorder Continue home medication: Risperdal 2mg PO BID Depression Continue home medication: Cymbalta 60mg PO Daily Continue home medication: Lexapro 20mg PO Daily Anxiety Continue home medication: Klonopin 2mg PO TID Insomnia Continue home medication: Trazodone 50mg PO HS Prophylactic Care Heparin 5,000u SC q12h Protonix 40mg PO Daily SCDs Discussed with attending. All medical management per Dr. Tila Harris
[2017-11-20 10:20] LABS: PROLACTIN 73.6 ng/mL (3.0-18.9)
[2017-11-20] MEDS: Tolterodine 4 mg ER Cap PO SCH (10:40)
--- NOTE | 2017-11-20 11:33 | PN ---
DATE: 11/20/2017 TIME OF EVALUATION: 07:20 a.m. NEUROLOGICAL PROBLEM: Syncopal attack. PHYSICAL EXAMINATION: GENERAL: The patient is awake, alert, and oriented to person, place, and time. VITAL SIGNS: Blood pressure 144/90, mean arterial pressure of 108, respiratory rate 18, and temperature 98 degrees Fahrenheit with the pulse rate of 88 and regular. Her rest of the exam was unchanged to compare with my previous examination. WORKUP: Prolactin level is high, which is probably related to her neuroleptic medication; however, repeat prolactin level is requested to see any changes compared to her previous one. MRI of the brain is scheduled, which is pending, probably it will be done today. The EEG is also still pending. The patient's workup is in progress. The patient will be followed closely with you. German Booth MD
[2017-11-20] MEDS ORDERED: Gadodiamide 287 mg/ml 20 ml IV ONE (16:24)
--- NOTE | 2017-11-20 18:28 | CP.PCM.PN ---
Subjective - Date & Time of Evaluation Date of Evaluation: 11/20/17 Time of Evaluation: 09:00 - Subjective Subjective: clinically same Objective - Vital Signs/Intake and Output Vital Signs (last 24 hours): Temp Pulse Resp BP Pulse Ox 98.0 F 95 H 20 152/98 H 97 11/20/17 15:00 11/20/17 15:00 11/20/17 15:00 11/20/17 15:00 11/20/17 15:00 Intake and Output: 11/20/17 11/20/17 06:59 18:59 Intake Total 600 1000 Balance 600 1000 - Medications Medications: Current Medications Amlodipine Besylate (Norvasc) 5 mg PO DAILY [facility] Last Admin: 11/20/17 09:19 Dose: 5 mg Aspirin (Ecotrin) 81 mg PO DAILY [facility] Clonazepam (Klonopin) 2 mg PO TID [facility] Last Admin: 11/20/17 17:39 Dose: 2 mg Diclofenac Sodium (Voltaren) 50 mg PO BID [facility] Last Admin: 11/20/17 17:39 Dose: 50 mg Duloxetine HCl (Cymbalta) 60 mg PO DAILY [facility] Last Admin: 11/20/17 09:21 Dose: 60 mg Escitalopram Oxalate (Lexapro) 20 mg PO DAILY [facility] Last Admin: 11/20/17 09:22 Dose: 20 mg Heparin Sodium (Porcine) (Heparin) 5,000 units SC Q12 [facility] Last Admin: 11/20/17 09:21 Dose: 5,000 units Sodium Chloride (Sodium Chloride 0.9%) 1,000 mls @ 75 mls/hr IV .[id number] [facility] Last Admin: 11/20/17 14:23 Dose: 75 mls/hr Lorazepam (Ativan) 1 mg IVP ONCE PRN PRN Reason: Anxiety Stop: 11/20/17 20:00 Last Admin: 11/20/17 15:23 Dose: 1 mg Oxycodone HCl (Oxycodone Immediate Release Tab) 15 mg PO Q3H PRN PRN Reason: Pain, moderate (4-7) Last Admin: 11/20/17 18:17 Dose: 15 mg Pantoprazole Sodium (Protonix Ec Tab) 40 mg PO DAILY [facility] Last Admin: 11/20/17 09:19 Dose: 40 mg Risperidone (Risperdal Tab) 2 mg PO BID [facility] Last Admin: 11/20/17 17:40 Dose: 2 mg Rosuvastatin Calcium (Crestor) 10 mg PO HS [facility] Last Admin: 11/19/17 21:26 Dose: 10 mg Tolterodine Tartrate (Detrol La) 4 mg PO DAILY [facility] Last Admin: 11/20/17 10:40 Dose: 4 mg Trazodone HCl (Desyrel) 50 mg PO HS [facility] Last Admin: 11/19/17 21:26 Dose: 50 mg - Labs Labs: 11/20/17 07:23 11/20/17 07:23 PT 14.2 SECONDS (9.7-12.2) H 11/18/17 13:41 INR 1.3 11/18/17 13:41 APTT 29 SECONDS (21-34) 11/18/17 13:41
--- NOTE | 2017-11-20 20:39 | CP.PCM.PN ---
Subjective - Date & Time of Evaluation Date of Evaluation: 11/19/17 Time of Evaluation: 13:00 - Subjective Subjective: Feels dizzy Objective - Vital Signs/Intake and Output Vital Signs (last 24 hours): Temp Pulse Resp BP Pulse Ox 98.0 F 87 20 152/98 H 97 11/20/17 15:00 11/20/17 18:00 11/20/17 15:00 11/20/17 15:00 11/20/17 15:00 Intake and Output: 11/20/17 11/21/17 18:59 06:59 Intake Total 1000 Balance 1000 - Medications Medications: Current Medications Amlodipine Besylate (Norvasc) 5 mg PO DAILY [facility] Last Admin: 11/20/17 09:19 Dose: 5 mg Aspirin (Ecotrin) 81 mg PO DAILY [facility] Clonazepam (Klonopin) 2 mg PO TID [facility] Last Admin: 11/20/17 17:39 Dose: 2 mg Diclofenac Sodium (Voltaren) 50 mg PO BID [facility] Last Admin: 11/20/17 17:39 Dose: 50 mg Duloxetine HCl (Cymbalta) 60 mg PO DAILY [facility] Last Admin: 11/20/17 09:21 Dose: 60 mg Escitalopram Oxalate (Lexapro) 20 mg PO DAILY [facility] Last Admin: 11/20/17 09:22 Dose: 20 mg Heparin Sodium (Porcine) (Heparin) 5,000 units SC Q12 [facility] Last Admin: 11/20/17 09:21 Dose: 5,000 units Sodium Chloride (Sodium Chloride 0.9%) 1,000 mls @ 75 mls/hr IV .[id number] [facility] Last Admin: 11/20/17 14:23 Dose: 75 mls/hr Oxycodone HCl (Oxycodone Immediate Release Tab) 15 mg PO Q3H PRN PRN Reason: Pain, moderate (4-7) Last Admin: 11/20/17 18:17 Dose: 15 mg Pantoprazole Sodium (Protonix Ec Tab) 40 mg PO DAILY [facility] Last Admin: 11/20/17 09:19 Dose: 40 mg Risperidone (Risperdal Tab) 2 mg PO BID [facility] Last Admin: 11/20/17 17:40 Dose: 2 mg Rosuvastatin Calcium (Crestor) 10 mg PO HS [facility] Last Admin: 11/19/17 21:26 Dose: 10 mg Tolterodine Tartrate (Detrol La) 4 mg PO DAILY [facility] Last Admin: 11/20/17 10:40 Dose: 4 mg Trazodone HCl (Desyrel) 50 mg PO [facility] Last Admin: 11/19/17 21:26 Dose: 50 mg - Labs Labs: 11/20/17 07:23 11/20/17 07:23 PT 14.2 SECONDS (9.7-12.2) H 11/18/17 13:41 INR 1.3 11/18/17 13:41 APTT 29 SECONDS (21-34) 11/18/17 13:41 - Head Exam Head Exam: ATRAUMATIC - Eye Exam Eye Exam: Normal appearance - ENT Exam ENT Exam: Mucous Membranes Dry - Respiratory Exam Respiratory Exam: NORMAL BREATHING PATTERN - Cardiovascular Exam Cardiovascular Exam: +S1, +S2 - GI/Abdominal Exam GI & Abdominal Exam: Normal Bowel Sounds Assessment and Plan (1) Syncope Assessment & Plan: neurology evaluation MRI brain, rule out seizure Status: Acute (2) Thrombocytopenia Assessment & Plan: secondary to chemotherapy suspect pt also drinks alcohol Status: Acute (3) Colon cancer Assessment & Plan: stage IV liver and lung mets outpatient chemotherapy Status: Acute
--- NOTE | 2017-11-20 20:41 | CP.PCM.PN ---
Subjective - Date & Time of Evaluation Date of Evaluation: 11/20/17 Time of Evaluation: 17:00 - Subjective Subjective: Feels dizzy s/p MRI brain. Objective - Vital Signs/Intake and Output Vital Signs (last 24 hours): Temp Pulse Resp BP Pulse Ox 98.0 F 87 20 152/98 H 97 11/20/17 15:00 11/20/17 18:00 11/20/17 15:00 11/20/17 15:00 11/20/17 15:00 Intake and Output: 11/20/17 11/21/17 18:59 06:59 Intake Total 1000 Balance 1000 - Medications Medications: Current Medications Amlodipine Besylate (Norvasc) 5 mg PO DAILY [facility] Last Admin: 11/20/17 09:19 Dose: 5 mg Aspirin (Ecotrin) 81 mg PO DAILY [facility] Clonazepam (Klonopin) 2 mg PO TID [facility] Last Admin: 11/20/17 17:39 Dose: 2 mg Diclofenac Sodium (Voltaren) 50 mg PO BID [facility] Last Admin: 11/20/17 17:39 Dose: 50 mg Duloxetine HCl (Cymbalta) 60 mg PO DAILY [facility] Last Admin: 11/20/17 09:21 Dose: 60 mg Escitalopram Oxalate (Lexapro) 20 mg PO DAILY [facility] Last Admin: 11/20/17 09:22 Dose: 20 mg Heparin Sodium (Porcine) (Heparin) 5,000 units SC Q12 [facility] Last Admin: 11/20/17 09:21 Dose: 5,000 units Sodium Chloride (Sodium Chloride 0.9%) 1,000 mls @ 75 mls/hr IV .[id number] [facility] Last Admin: 11/20/17 14:23 Dose: 75 mls/hr Oxycodone HCl (Oxycodone Immediate Release Tab) 15 mg PO Q3H PRN PRN Reason: Pain, moderate (4-7) Last Admin: 11/20/17 18:17 Dose: 15 mg Pantoprazole Sodium (Protonix Ec Tab) 40 mg PO DAILY [facility] Last Admin: 11/20/17 09:19 Dose: 40 mg Risperidone (Risperdal Tab) 2 mg PO BID [facility] Last Admin: 11/20/17 17:40 Dose: 2 mg Rosuvastatin Calcium (Crestor) 10 mg PO HS [facility] Last Admin: 11/19/17 21:26 Dose: 10 mg Tolterodine Tartrate (Detrol La) 4 mg PO DAILY [facility] Last Admin: 11/20/17 10:40 Dose: 4 mg Trazodone HCl (Desyrel) 50 mg PO [facility] Last Admin: 11/19/17 21:26 Dose: 50 mg - Labs Labs: 11/20/17 07:23 11/20/17 07:23 PT 14.2 SECONDS (9.7-12.2) H 11/18/17 13:41 INR 1.3 11/18/17 13:41 APTT 29 SECONDS (21-34) 11/18/17 13:41 - Head Exam Head Exam: ATRAUMATIC - Eye Exam Eye Exam: Normal appearance - ENT Exam ENT Exam: Mucous Membranes Dry - Respiratory Exam Respiratory Exam: NORMAL BREATHING PATTERN - Cardiovascular Exam Cardiovascular Exam: +S1, +S2 - GI/Abdominal Exam GI & Abdominal Exam: Normal Bowel Sounds Assessment and Plan (1) Syncope Assessment & Plan: f/u MRI brain results rule out seizure neurology f/u Status: Acute (2) Pancytopenia Assessment & Plan: secondary to chemotherapy Status: Acute (3) Colon cancer Assessment & Plan: stage IV lung and liver mets outpatient treatment Status: Acute
--- NOTE | 2017-11-20 21:58 | CP.PCM.CON ---
History of Present Illness - History of Present Illness History of Present Illness: 46 F with recent cardiac work up (Normal stress test and normal ECHO admitted for ? Syncope denies chest pain and dyspnea Will follow Past Patient History - Infectious Disease Hx of Infectious Diseases: None - Past Medical History & Family History Past Medical History?: Yes - Past Social History Smoking Status: Never Smoked - CARDIAC Hx Hypertension: Yes - PULMONARY Hx Asthma: Yes - NEUROLOGICAL Hx Neurological Disorder: No - HEENT Hx HEENT Problems: No - RENAL Hx Chronic Kidney Disease: No - ENDOCRINE/METABOLIC Hx Endocrine Disorders: No - HEMATOLOGICAL/ONCOLOGICAL Hx Anemia: Yes - INTEGUMENTARY Hx Dermatological Problems: No - MUSCULOSKELETAL/RHEUMATOLOGICAL Hx Arthritis: Yes - GASTROINTESTINAL Hx Gastrointestinal Disorders: Yes Hx Bowel Surgery: Yes Other/Comment: COLON CANCER STAGE 4 WITH CHEMOTHERAPY. R side port a cath - GENITOURINARY/GYNECOLOGICAL Hx Genitourinary Disorders: No - PSYCHIATRIC Hx Anxiety: Yes Hx Bipolar Disorder: Yes Hx Depression: Yes Hx Schizophrenia: Yes Hx Substance Use: Yes (hx of cocaine use) - SURGICAL HISTORY Hx Surgeries: Yes (SEE COMMENT) Hx Orthopedic Surgery: Yes (left knee TKR 03/2017) Hx Tubal Ligation: Yes (2005) Hx Vascular Access Device: Yes (RIGHT SUBCLAVIAN 2014) Other/Comment: colon cancer surgery april 2014 to remove tumor, rt side subclavian Port - ANESTHESIA Hx Anesthesia: Yes Hx Anesthesia Reactions: No Hx Malignant Hyperthermia: No Meds Allergies/Adverse Reactions: Allergies Allergy/AdvReac Type Severity Reaction Status Date / Time No Known Allergies Allergy Verified 11/07/17 12:12 - Medications Medications: Current Medications Amlodipine Besylate (Norvasc) 5 mg PO DAILY [facility] Last Admin: 11/20/17 09:19 Dose: 5 mg Aspirin (Ecotrin) 81 mg PO DAILY [facility] Last Admin: 11/20/17 21:31 Dose: 81 mg Clonazepam (Klonopin) 2 mg PO TID [facility] Last Admin: 11/20/17 17:39 Dose: 2 mg Diclofenac Sodium (Voltaren) 50 mg PO BID [facility] Last Admin: 11/20/17 17:39 Dose: 50 mg Duloxetine HCl (Cymbalta) 60 mg PO DAILY [facility] Last Admin: 11/20/17 09:21 Dose: 60 mg Escitalopram Oxalate (Lexapro) 20 mg PO DAILY [facility] Last Admin: 11/20/17 09:22 Dose: 20 mg Heparin Sodium (Porcine) (Heparin) 5,000 units SC Q12 [facility] Last Admin: 11/20/17 21:31 Dose: 5,000 units Sodium Chloride (Sodium Chloride 0.9%) 1,000 mls @ 75 mls/hr IV .[id number] [facility] Last Admin: 11/20/17 14:23 Dose: 75 mls/hr Oxycodone HCl (Oxycodone Immediate Release Tab) 15 mg PO Q3H PRN PRN Reason: Pain, moderate (4-7) Last Admin: 11/20/17 18:17 Dose: 15 mg Pantoprazole Sodium (Protonix Ec Tab) 40 mg PO DAILY [facility] Last Admin: 11/20/17 09:19 Dose: 40 mg Risperidone (Risperdal Tab) 2 mg PO BID [facility] Last Admin: 11/20/17 17:40 Dose: 2 mg Rosuvastatin Calcium (Crestor) 10 mg PO HS [facility] Last Admin: 11/20/17 21:31 Dose: 10 mg Tolterodine Tartrate (Detrol La) 4 mg PO DAILY [facility] Last Admin: 11/20/17 10:40 Dose: 4 mg Trazodone HCl (Desyrel) 50 mg PO HS [facility] Last Admin: 11/20/17 21:31 Dose: 50 mg Results - Vital Signs Recent Vital Signs: Last Vital Signs Temp 98.0 F 11/20/17 15:00 Pulse 87 11/20/17 18:00 Resp 20 11/20/17 15:00 BP 152/98 H 11/20/17 15:00 Pulse Ox 97 11/20/17 15:00 - Labs Result Diagrams: 11/20/17 07:23 11/20/17 07:23 Labs: Laboratory Results - last 24 hr 11/19/17 11/20/17 11/20/17 07:56 07:23 07:23 WBC 4.1 L RBC 3.76 L Hgb 10.2 L D Hct 30.1 L MCV 80.3 L MCH 27.2 MCHC 33.9 RDW 18.4 H Plt Count 83 L D MPV 8.3 Neut % (Auto) 74.4 Lymph % (Auto) 15.2 L [place] % (Auto) 8.4 Eos % (Auto) 1.6 Baso % (Auto) 0.4 Neut # (Auto) 3.1 Lymph # (Auto) 0.6 L [place] # (Auto) 0.3 Eos # (Auto) 0.1 Baso # (Auto) 0.0 Differential Comment Sodium 140 Potassium 4.3 Chloride 107 Carbon Dioxide 27 Anion Gap 10 BUN 8 Creatinine 0.7 Est GFR ( Amer) > 60 Est GFR (Non-Af Amer) > 60 Random Glucose 96 Calcium 7.6 L Ionized Calcium 4.7 L Magnesium 1.8 Total Bilirubin 0.3 AST 22 ALT 29 Alkaline Phosphatase 61 Total Protein 5.7 L Albumin 3.2 L Globulin 2.5 Albumin/Globulin Ratio 1.3 Prolactin 73.6 H
[2017-11-21] MEDS: oxyCODONE 5 mg Immediate Release Tab PO PRN ×4 (00:17→23:45)
[2017-11-21] MEDS: Sodium Chloride 0.9% 1,000 ML IV SCH ×3 (06:29→17:19)
[2017-11-21 07:48] LABS: BASO % 0.5 % (0.0-2.0); EOS # 0.1 K/uL (0.0-0.7); EOS % 1.9 % (0.0-4.0); LYMPH # 0.7 K/uL (1.0-4.3); LYMPH % 24.5 % (20.0-40.0); MEAN CELL VOLUME 79.9 fL (81.0-99.0); MEAN CORPUSCULAR HEMOGLOBIN 27.3 pg (27.0-31.0); MEAN CORPUSCULAR HGB CONC 34.2 g/dL (33.0-37.0); MONO # 0.2 K/uL (0.0-0.8); MONO % 5.5 % (0.0-10.0); NEUT # 1.9 K/uL (1.8-7.0); NEUT % 67.6 % (50.0-75.0); NRBC % 0.1 % (0.0-2.0); RBC 3.67 Mil/uL (3.80-5.20); RED CELL DISTRIBUTION WIDTH 18.1 % (11.5-14.5); WHITE BLOOD COUNT 2.9 K/uL (4.8-10.8)
[2017-11-21 08:01] LABS: ALB/GLOB RATIO 1.2 (1.0-2.1); ALBUMIN 3.2 g/dL (3.5-5.0); ALT/SGPT 27 U/L (9-52); AST/SGOT 19 U/L (14-36); BLOOD UREA NITROGEN 8 mg/dL (7-17); CALCIUM 8.3 mg/dl (8.6-10.4); GFR NON-AFRICAN AMERICAN > 60
--- NOTE | 2017-11-21 09:03 | CP.PCM.PN ---
Subjective - Date & Time of Evaluation Date of Evaluation: 11/21/17 Time of Evaluation: 09:03 - Subjective Subjective: PGY2 Medicine Note for Dr. Tila Harris Patient seen and examined this morning at bedside this morning. Patient is resting comfortably in bed. Patient has not felt lightheaded, dizzy or had another syncopal episode today or yesterday. She has no complaints today stating she is feeling well. Objective - Vital Signs/Intake and Output Vital Signs (last 24 hours): Temp Pulse Resp BP Pulse Ox 97.6 F 95 H 20 154/98 H 95 11/21/17 07:00 11/21/17 08:40 11/21/17 07:00 11/21/17 07:00 11/21/17 07:00 - Medications Medications: Current Medications Amlodipine Besylate (Norvasc) 5 mg PO DAILY [facility] Last Admin: 11/20/17 09:19 Dose: 5 mg Aspirin (Ecotrin) 81 mg PO DAILY [facility] Last Admin: 11/20/17 21:31 Dose: 81 mg Clonazepam (Klonopin) 2 mg PO TID [facility] Last Admin: 11/20/17 17:39 Dose: 2 mg Diclofenac Sodium (Voltaren) 50 mg PO BID [facility] Last Admin: 11/20/17 17:39 Dose: 50 mg Duloxetine HCl (Cymbalta) 60 mg PO DAILY [facility] Last Admin: 11/20/17 09:21 Dose: 60 mg Escitalopram Oxalate (Lexapro) 20 mg PO DAILY [facility] Last Admin: 11/20/17 09:22 Dose: 20 mg Heparin Sodium (Porcine) (Heparin) 5,000 units SC Q12 [facility] Last Admin: 11/20/17 21:31 Dose: 5,000 units Sodium Chloride (Sodium Chloride 0.9%) 1,000 mls @ 75 mls/hr IV .[id number] [facility] Last Admin: 11/21/17 06:29 Dose: 75 mls/hr Oxycodone HCl (Oxycodone Immediate Release Tab) 15 mg PO Q3H PRN PRN Reason: Pain, moderate (4-7) Last Admin: 11/21/17 04:02 Dose: 15 mg Pantoprazole Sodium (Protonix Ec Tab) 40 mg PO DAILY [facility] Last Admin: 11/20/17 09:19 Dose: 40 mg Risperidone (Risperdal Tab) 2 mg PO BID [facility] Last Admin: 11/20/17 17:40 Dose: 2 mg Rosuvastatin Calcium (Crestor) 10 mg PO HS [facility] Last Admin: 11/20/17 21:31 Dose: 10 mg Tolterodine Tartrate (Detrol La) 4 mg PO DAILY [facility] Last Admin: 11/20/17 10:40 Dose: 4 mg Trazodone HCl (Desyrel) 50 mg PO [facility] Last Admin: 11/20/17 21:31 Dose: 50 mg - Labs Labs: 11/21/17 07:44 11/21/17 07:44 PT 14.2 SECONDS (9.7-12.2) H 11/18/17 13:41 INR 1.3 11/18/17 13:41 APTT 29 SECONDS (21-34) 11/18/17 13:41 - Additional Findings Additional findings: - Constitutional Appears: Non-toxic, No Acute Distress - Head Exam Head Exam: ATRAUMATIC, NORMAL INSPECTION, NORMOCEPHALIC - Eye Exam Eye Exam: EOMI Pupil Exam: NORMAL ACCOMODATION - ENT Exam ENT Exam: Mucous Membranes Moist - Neck Exam Neck Exam: Full ROM - Respiratory Exam Respiratory Exam: NORMAL BREATHING PATTERN - Cardiovascular Exam Cardiovascular Exam: +S1, +S2 - GI/Abdominal Exam GI & Abdominal Exam: Soft, Normal Bowel Sounds - Extremities Exam Extremities Exam: absent: Pedal Edema, Tenderness - Neurological Exam Neurological Exam: Alert, Awake, Oriented x3 Neuro motor strength exam: Left Upper Extremity: 5, Right Upper Extremity: 5, Left Lower Extremity: 5, Right Lower Extremity: 5 - Psychiatric Exam Psychiatric exam: Normal Affect, Normal Mood - Skin Skin Exam: Dry, Normal Color, Warm Assessment and Plan - Assessment and Plan (Free Text) Plan: Syncope Neurology consulted, Dr. Booth - Ruling out stroke. F/U recs Cardiology consulted, Dr. Miller - F/U recs Head CT w/o (11/18/17): * No acute intracranial abnormality. * Will f/u with Brain MRI as it is more specific for brain pathology CTA Head and Neck (11/18/17): * No evidence of endoluminal thrombus, occlusion or definite significant stenosis in the intracranial arteries. * No evidence of hemodynamically significant stenosis in the internal carotid arteries. * Patent bilateral vertebral arteries. * 11 mm nodule in the posterior segment of the right upper lobe and 10 mm nodule in the left medial apex, concerning for metastasis. Brain MRI (11/20/17): * Limited study due to poor contrast enhancement. * No evidence of acute intracranial hemorrhage or infarct. No obvious enhancing lesions at this time seen to suggest metastasis however follow-up MRI at interval recommended. * Suspect mild chronic white matter ischemic changes however see above discussion for additional differential diagnostic consideration. * Mild generalized volume loss. 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 Trop negative x3 Lipid Panel: HDL 44, LDL 89 and Trigly 117 Lipase 44 Hgb A1c 4.6 ASA 81 mg started Metastatic colon cancer Stage IV; mets to liver and lung Dr. Heath, Hem/Onc consulted - f/u recs * outpatient chemo * thrombocytopenia secondary to chemo Lung biopsy (on 08/19/17): Metastatic adenocarcinoma. Consistent w/ primary colon source Continue home medications: * Oxycodone 15mg PO Q3H PRN for pain * Tramadol 25mg PO TID prn for pain HTN Continue home medication: Amlodipine 5mg PO daily BP elevated continue to monitor Hx of Anemia of Chronic Disease Hgb stable Monitor Bipolar disorder Continue home medication: Risperdal 2mg PO BID Depression Continue home medication: Cymbalta 60mg PO Daily Continue home medication: Lexapro 20mg PO Daily Anxiety Continue home medication: Klonopin 2mg PO TID Insomnia Continue home medication: Trazodone 50mg PO HS Prophylactic Care Heparin 5,000u SC q12h Protonix 40mg PO Daily SCDs DISPO: Plan to discharge tomorrow, pending Neuro and Cardio approval. All medical management per Dr. Tila Harris
--- NOTE | 2017-11-21 09:10 | PN ---
DATE: 11/21/2017 TIME OF EVALUATION: 7 o'clock a.m. NEUROLOGIC PROBLEM: Syncopal attack. PHYSICAL EXAMINATION: GENERAL: The patient is arousable on calling her first name. VITAL SIGNS: Blood pressure 138/92, with a mean arterial pressure of 107, respiratory rate 18, pulse rate 78 and regular, with temperature of 98.1 degree Fahrenheit. WORKUP: She knows the workup and the results of it. The patient does not have any syncopal attack or any new dizziness or any change in neuro status. The patient did have MRI of the brain, which has been reviewed. No acute pathology is noted. The patient had an electroencephalogram that will be reviewed as well by me. ASSESSMENT AND PLAN: From neurological point of view, the patient is stable. Her prolactin level has been high. 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 The patient's psychiatric medication should be tailored off. The patient also should not be on too many sedatives. The patient's condition is being discussed with her. She agreed with my plan of management. The patient can continue chemotherapy as per the schedule. German Booth MD
[2017-11-21] MEDS: Diclofenac Sodium Delayed Release 50 mg EC Tab PO SCH ×2 (10:17→17:18)
[2017-11-21] MEDS: Pantoprazole 40 mg EC Tab PO SCH (10:17)
--- NOTE | 2017-11-21 12:32 | MRI ---
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 TECHNIQUE: Multiplanar, multisequence MR images of the brain were obtained with and without intravenous contrast enhancement. FINDINGS: HEMORRHAGE: No acute parenchymal, subarachnoid or extra-axial hemorrhage. No evidence of hemosiderin deposition identified on gradient echo weighted sequence. Approximately 20 cc of Omniscan injected for this exam. Note that the study appears somewhat limited due to poor contrast enhancement DWI: No evidence of an acute or early subacute infarction seen on diffusion imaging.. BRAIN PARENCHYMA: Some very subtle slightly confluent prolonged T2 signal changes seen in the periventricular white matter most conspicuous in the parietal regions bilaterally. These changes are nonspecific and could represent chronic sequela of small vessel disease. Concomitant sequela of chemotherapy if administered not excluded. Mild generalized volume loss. ENHANCEMENT: No enhancing parenchymal nor extra-axial masses or collections. No evidence of unusual meningeal enhancement. VENTRICLES: No obstructive hydrocephalus. CRANIUM: Unremarkable. ORBITS: Orbits and contents unremarkable. PARANASAL SINUSES/MASTOIDS: Clear within the tract just does not the patient chest minimal VASCULAR SYSTEM: Visualized major vascular flow voids at skull base patent. OTHER FINDINGS: None . IMPRESSION: Limited study due to poor contrast enhancement. No evidence of acute intracranial hemorrhage or infarct. No obvious enhancing lesions at this time seen to suggest metastasis however follow-up MRI at interval recommended. Suspect mild chronic white matter ischemic changes however see above discussion for additional differential diagnostic consideration. Mild generalized volume loss.
[2017-11-21] MEDS: Tolterodine 4 mg ER Cap PO SCH (13:39)
--- NOTE | 2017-11-21 16:18 | CP.PCM.PN ---
Subjective - Date & Time of Evaluation Date of Evaluation: 11/21/17 Time of Evaluation: 09:15 - Subjective Subjective: clinically same Objective - Vital Signs/Intake and Output Vital Signs (last 24 hours): Temp Pulse Resp BP Pulse Ox 97.5 F L 75 20 135/86 96 11/21/17 15:00 11/21/17 15:00 11/21/17 15:00 11/21/17 15:00 11/21/17 15:00 - Medications Medications: Current Medications Amlodipine Besylate (Norvasc) 5 mg PO DAILY [facility] Last Admin: 11/21/17 10:17 Dose: 5 mg Aspirin (Ecotrin) 81 mg PO DAILY [facility] Last Admin: 11/21/17 10:17 Dose: 81 mg Clonazepam (Klonopin) 2 mg PO TID [facility] Last Admin: 11/21/17 13:35 Dose: 2 mg Diclofenac Sodium (Voltaren) 50 mg PO BID [facility] Last Admin: 11/21/17 10:17 Dose: 50 mg Duloxetine HCl (Cymbalta) 60 mg PO DAILY [facility] Last Admin: 11/21/17 10:17 Dose: 60 mg Escitalopram Oxalate (Lexapro) 20 mg PO DAILY [facility] Last Admin: 11/21/17 10:18 Dose: 20 mg Heparin Sodium (Porcine) (Heparin) 5,000 units SC Q12 [facility] Last Admin: 11/21/17 10:17 Dose: 5,000 units Sodium Chloride (Sodium Chloride 0.9%) 1,000 mls @ 75 mls/hr IV .[id number] [facility] Last Admin: 11/21/17 15:56 Dose: Not Given Oxycodone HCl (Oxycodone Immediate Release Tab) 15 mg PO Q3H PRN PRN Reason: Pain, moderate (4-7) Last Admin: 11/21/17 14:38 Dose: 15 mg Pantoprazole Sodium (Protonix Ec Tab) 40 mg PO DAILY [facility] Last Admin: 11/21/17 10:17 Dose: 40 mg Risperidone (Risperdal Tab) 2 mg PO BID [facility] Last Admin: 11/21/17 10:17 Dose: 2 mg Rosuvastatin Calcium (Crestor) 10 mg PO HS [facility] Last Admin: 11/20/17 21:31 Dose: 10 mg Tolterodine Tartrate (Detrol La) 4 mg PO DAILY [facility] Last Admin: 11/21/17 13:39 Dose: 4 mg Trazodone HCl (Desyrel) 50 mg PO HS [facility] Last Admin: 11/20/17 21:31 Dose: 50 mg - Labs Labs: 11/21/17 07:44 11/21/17 07:44 PT 14.2 SECONDS (9.7-12.2) H 11/18/17 13:41 INR 1.3 11/18/17 13:41 APTT 29 SECONDS (21-34) 11/18/17 13:41 - Constitutional Appears: Well - Head Exam Head Exam: ATRAUMATIC, NORMAL INSPECTION, NORMOCEPHALIC - Eye Exam Eye Exam: EOMI, Normal appearance, PERRL Pupil Exam: NORMAL ACCOMODATION, PERRL - ENT Exam ENT Exam: Mucous Membranes Moist, Normal Exam - Neck Exam Neck Exam: Full ROM, Normal Inspection. absent: Lymphadenopathy - Respiratory Exam Respiratory Exam: Decreased Breath Sounds - Cardiovascular Exam Cardiovascular Exam: REGULAR RHYTHM, +S1, +S2 - GI/Abdominal Exam GI & Abdominal Exam: Soft, Diminished Bowel Sounds - Rectal Exam Rectal Exam: Deferred
--- NOTE | 2017-11-21 19:35 | EEG ---
DATE: 11/20/2017 This is a 16-channel electroencephalogram of awake and drowsy adult. During the study, photic stimulation was performed. Hyperventilation was not performed. The resting electroencephalogram consists of 20 to 30 microvolt low amplitude 5 to 6 Hz, a delta mixed the low theta activity seen at parietal and occipital leads. The intermittent movement with artifact contaminated the background rhythm. The photic stimulation did not evoke driving response noted at 2 to 20 Hz. There is sleep spindle as well as a K-complex noted consistent with N2 sleep. The photic stimulation did not evoke driving response noted at 2 to 20 Hz. IMPRESSION: This is an abnormal electroencephalogram because of persistent slowing consistent with the bilateral cerebral dysfunction. This is probably secondary to metabolic, vascular, or degenerative process. If clinical indication is high, I strongly recommend her to have extended hour ambulatory video electroencephalogram is recommended. That can be done as outpatient. German Booth MD
--- NOTE | 2017-11-21 22:09 | CP.PCM.PN ---
Subjective - Date & Time of Evaluation Date of Evaluation: 11/21/17 Time of Evaluation: 08:30 - Subjective Subjective: Patient seen and evaluated Still dizzy spells cardiac work up negative Metastatic Ca HTN Dizziness Objective - Vital Signs/Intake and Output Vital Signs (last 24 hours): Temp Pulse Resp BP Pulse Ox 97.5 F L 76 20 135/86 96 11/21/17 15:00 11/21/17 17:36 11/21/17 15:00 11/21/17 15:00 11/21/17 15:00 Intake and Output: 11/21/17 11/22/17 18:59 06:59 Intake Total 825 Balance 825 - Medications Medications: Current Medications Amlodipine Besylate (Norvasc) 5 mg PO DAILY [facility] Last Admin: 11/21/17 10:17 Dose: 5 mg Aspirin (Ecotrin) 81 mg PO DAILY [facility] Last Admin: 11/21/17 10:17 Dose: 81 mg Clonazepam (Klonopin) 2 mg PO TID [facility] Last Admin: 11/21/17 17:18 Dose: 2 mg Diclofenac Sodium (Voltaren) 50 mg PO BID [facility] Last Admin: 11/21/17 17:18 Dose: 50 mg Duloxetine HCl (Cymbalta) 60 mg PO DAILY [facility] Last Admin: 11/21/17 10:17 Dose: 60 mg Escitalopram Oxalate (Lexapro) 20 mg PO DAILY [facility] Last Admin: 11/21/17 10:18 Dose: 20 mg Heparin Sodium (Porcine) (Heparin) 5,000 units SC Q12 [facility] Last Admin: 11/21/17 21:03 Dose: 5,000 units Oxycodone HCl (Oxycodone Immediate Release Tab) 15 mg PO Q3H PRN PRN Reason: Pain, moderate (4-7) Last Admin: 11/21/17 14:38 Dose: 15 mg Pantoprazole Sodium (Protonix Ec Tab) 40 mg PO DAILY [facility] Last Admin: 11/21/17 10:17 Dose: 40 mg Risperidone (Risperdal Tab) 2 mg PO BID [facility] Last Admin: 11/21/17 17:18 Dose: 2 mg Rosuvastatin Calcium (Crestor) 10 mg PO HS [facility] Last Admin: 11/21/17 21:03 Dose: 10 mg Tolterodine Tartrate (Detrol La) 4 mg PO DAILY [facility] Last Admin: 11/21/17 13:39 Dose: 4 mg Trazodone HCl (Desyrel) 50 mg PO HS [facility] Last Admin: 11/21/17 21:03 Dose: 50 mg - Labs Labs: 11/21/17 07:44 11/21/17 07:44 PT 14.2 SECONDS (9.7-12.2) H 11/18/17 13:41 INR 1.3 11/18/17 13:41 APTT 29 SECONDS (21-34) 11/18/17 13:41
[2017-11-22] MEDS: oxyCODONE 5 mg Immediate Release Tab PO PRN ×3 (03:21→21:32)
[2017-11-22] MEDS: Tolterodine 4 mg ER Cap PO SCH (10:06)
[2017-11-22] MEDS: Diclofenac Sodium Delayed Release 50 mg EC Tab PO SCH ×2 (10:06→17:33)
[2017-11-22] MEDS: Pantoprazole 40 mg EC Tab PO SCH (10:06)
[2017-11-22] MEDS: Benzocaine/Menthol (Cepacol) Lozenge MT PRN ×2 (10:42→17:34)
--- NOTE | 2017-11-22 10:43 | CP.PCM.PN ---
Subjective - Date & Time of Evaluation Date of Evaluation: 11/22/17 Time of Evaluation: 09:45 - Subjective Subjective: clinically same Objective - Vital Signs/Intake and Output Vital Signs (last 24 hours): Temp Pulse Resp BP Pulse Ox 97.8 F 76 20 134/87 97 11/22/17 07:00 11/22/17 07:00 11/22/17 07:00 11/22/17 07:00 11/22/17 07:00 Intake and Output: 11/22/17 11/22/17 06:59 18:59 Intake Total 1065 Balance 1065 - Medications Medications: Current Medications Amlodipine Besylate (Norvasc) 5 mg PO DAILY [facility] Last Admin: 11/22/17 10:07 Dose: 5 mg Aspirin (Ecotrin) 81 mg PO DAILY [facility] Last Admin: 11/22/17 10:06 Dose: 81 mg Benzocaine/Menthol (Cepacol Sore Throat) 1 [place] Q6H PRN PRN Reason: Sore Throat Last Admin: 11/22/17 10:42 Dose: 1 carson Clonazepam (Klonopin) 2 mg PO TID [facility] Last Admin: 11/22/17 10:06 Dose: 2 mg Diclofenac Sodium (Voltaren) 50 mg PO BID [facility] Last Admin: 11/22/17 10:06 Dose: 50 mg Duloxetine HCl (Cymbalta) 60 mg PO DAILY [facility] Last Admin: 11/22/17 10:06 Dose: 60 mg Escitalopram Oxalate (Lexapro) 20 mg PO DAILY [facility] Last Admin: 11/22/17 10:06 Dose: 20 mg Heparin Sodium (Porcine) (Heparin) 5,000 units SC Q12 [facility] Last Admin: 11/22/17 10:07 Dose: 5,000 units Oxycodone HCl (Oxycodone Immediate Release Tab) 15 mg PO Q3H PRN PRN Reason: Pain, moderate (4-7) Last Admin: 11/22/17 10:09 Dose: 15 mg Pantoprazole Sodium (Protonix Ec Tab) 40 mg PO DAILY [facility] Last Admin: 11/22/17 10:06 Dose: 40 mg Risperidone (Risperdal Tab) 2 mg PO BID [facility] Last Admin: 11/22/17 10:07 Dose: 2 mg Rosuvastatin Calcium (Crestor) 10 mg PO HS [facility] Last Admin: 11/21/17 21:03 Dose: 10 mg Tolterodine Tartrate (Detrol La) 4 mg PO DAILY [facility] Last Admin: 11/22/17 10:06 Dose: 4 mg Trazodone HCl (Desyrel) 50 mg PO HS [facility] Last Admin: 11/21/17 21:03 Dose: 50 mg - Labs Labs: 11/21/17 07:44 11/21/17 07:44 PT 14.2 SECONDS (9.7-12.2) H 11/18/17 13:41 INR 1.3 11/18/17 13:41 APTT 29 SECONDS (21-34) 11/18/17 13:41 - Constitutional Appears: Well - Head Exam Head Exam: ATRAUMATIC, NORMAL INSPECTION, NORMOCEPHALIC - Eye Exam Eye Exam: EOMI, Normal appearance, PERRL Pupil Exam: NORMAL ACCOMODATION, PERRL - ENT Exam ENT Exam: Mucous Membranes Moist, Normal Exam - Neck Exam Neck Exam: Full ROM, Normal Inspection. absent: Lymphadenopathy - Respiratory Exam Respiratory Exam: Decreased Breath Sounds - Cardiovascular Exam Cardiovascular Exam: REGULAR RHYTHM, +S1, +S2 - GI/Abdominal Exam GI & Abdominal Exam: Soft, Diminished Bowel Sounds - Rectal Exam Rectal Exam: Deferred
--- NOTE | 2017-11-22 11:16 | CP.PCM.PN ---
Subjective - Date & Time of Evaluation Date of Evaluation: 11/22/17 Time of Evaluation: 11:14 - Subjective Subjective: PGY2 Medicine Note for Dr. Tila Harris Patient seen and examined this morning at bedside this morning. Patient is resting comfortably in bed. Patient states that she now has a sore throat and feels sick. Patient states that she feel dizzy and does not want to go home. Patient is well known to the medicine team. Her story is very similar with each hospitalization, on the date that she is supposed to be discharged, she begins to have multiple symptoms and does not want to go home. When asked why she does not want to go home, she states, "I do not know, I just don't like it there." Objective - Vital Signs/Intake and Output Vital Signs (last 24 hours): Temp Pulse Resp BP Pulse Ox 97.8 F 76 20 134/87 97 11/22/17 07:00 11/22/17 07:00 11/22/17 07:00 11/22/17 07:00 11/22/17 07:00 Intake and Output: 11/22/17 11/22/17 06:59 18:59 Intake Total 1065 Balance 1065 - Medications Medications: Current Medications Amlodipine Besylate (Norvasc) 5 mg PO DAILY [facility] Last Admin: 11/22/17 10:07 Dose: 5 mg Aspirin (Ecotrin) 81 mg PO DAILY [facility] Last Admin: 11/22/17 10:06 Dose: 81 mg Benzocaine/Menthol (Cepacol Sore Throat) 1 [place] MT Q6H PRN PRN Reason: Sore Throat Last Admin: 11/22/17 10:42 Dose: 1 carson Clonazepam (Klonopin) 2 mg PO TID [facility] Last Admin: 11/22/17 10:06 Dose: 2 mg Diclofenac Sodium (Voltaren) 50 mg PO BID [facility] Last Admin: 11/22/17 10:06 Dose: 50 mg Duloxetine HCl (Cymbalta) 60 mg PO DAILY [facility] Last Admin: 11/22/17 10:06 Dose: 60 mg Escitalopram Oxalate (Lexapro) 20 mg PO DAILY [facility] Last Admin: 11/22/17 10:06 Dose: 20 mg Heparin Sodium (Porcine) (Heparin) 5,000 units SC Q12 [facility] Last Admin: 09/28/18 10:07 Dose: 5,000 units Oxycodone HCl (Oxycodone Immediate Release Tab) 15 mg PO Q3H PRN PRN Reason: Pain, moderate (4-7) Last Admin: 11/22/17 10:09 Dose: 15 mg Pantoprazole Sodium (Protonix Ec Tab) 40 mg PO DAILY [facility] Last Admin: 11/22/17 10:06 Dose: 40 mg Risperidone (Risperdal Tab) 2 mg PO BID [facility] Last Admin: 11/22/17 10:07 Dose: 2 mg Rosuvastatin Calcium (Crestor) 10 mg PO HS [facility] Last Admin: 11/21/17 21:03 Dose: 10 mg Tolterodine Tartrate (Detrol La) 4 mg PO DAILY [facility] Last Admin: 11/22/17 10:06 Dose: 4 mg Trazodone HCl (Desyrel) 50 mg PO [facility] Last Admin: 11/21/17 21:03 Dose: 50 mg - Labs Labs: 11/21/17 07:44 11/21/17 07:44 PT 14.2 SECONDS (9.7-12.2) H 11/18/17 13:41 INR 1.3 11/18/17 13:41 APTT 29 SECONDS (21-34) 11/18/17 13:41 - Additional Findings Additional findings: - Constitutional Appears: Non-toxic, No Acute Distress - Head Exam Head Exam: ATRAUMATIC, NORMAL INSPECTION, NORMOCEPHALIC - Eye Exam Eye Exam: EOMI Pupil Exam: NORMAL ACCOMODATION - ENT Exam ENT Exam: Mucous Membranes Moist - Neck Exam Neck Exam: Full ROM - Respiratory Exam Respiratory Exam: NORMAL BREATHING PATTERN - Cardiovascular Exam Cardiovascular Exam: +S1, +S2 - GI/Abdominal Exam GI & Abdominal Exam: Soft, Normal Bowel Sounds - Extremities Exam Extremities Exam: absent: Pedal Edema, Tenderness - Neurological Exam Neurological Exam: Alert, Awake, Oriented x3 Neuro motor strength exam: Left Upper Extremity: 5, Right Upper Extremity: 5, Left Lower Extremity: 5, Right Lower Extremity: 5 - Psychiatric Exam Psychiatric exam: Normal Affect, Normal Mood - Skin Skin Exam: Dry, Normal Color, Warm Assessment and Plan - Assessment and Plan (Free Text) Plan: Syncope Neurology consulted, Dr. Booth - Ruling out stroke. F/U recs Cardiology consulted, Dr. Miller - F/U recs Head CT w/o (11/18/17): * No acute intracranial abnormality. * Will f/u with Brain MRI as it is more specific for brain pathology CTA Head and Neck (11/18/17): * No evidence of endoluminal thrombus, occlusion or definite significant stenosis in the intracranial arteries. * No evidence of hemodynamically significant stenosis in the internal carotid arteries. * Patent bilateral vertebral arteries. * 11 mm nodule in the posterior segment of the right upper lobe and 10 mm nodule in the left medial apex, concerning for metastasis. Brain MRI (11/20/17): * Limited study due to poor contrast enhancement. * No evidence of acute intracranial hemorrhage or infarct. No obvious enhancing lesions at this time seen to suggest metastasis however follow-up MRI at int erval recommended. * Suspect mild chronic white matter ischemic changes however see above discussion for additional differential diagnostic consideration. * Mild generalized volume loss. 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 Trop negative x3 Lipid Panel: HDL 44, LDL 89 and Trigly 117 Lipase 44 Hgb A1c 4.6 ASA 81 mg started Metastatic colon cancer Stage IV; mets to liver and lung Dr. Heath, Hem/Onc consulted - f/u recs * outpatient chemo * thrombocytopenia secondary to chemo Lung biopsy (on 08/19/17): Metastatic adenocarcinoma. Consistent w/ primary colon source Continue home medications: * Oxycodone 15mg PO Q3H PRN for pain * Tramadol 25mg PO TID prn for pain HTN Continue home medication: Amlodipine 5mg PO daily BP elevated continue to monitor Hx of Anemia of Chronic Disease Hgb stable Monitor Bipolar disorder Continue home medication: Risperdal 2mg PO BID Depression Continue home medication: Cymbalta 60mg PO Daily Continue home medication: Lexapro 20mg PO Daily Anxiety Continue home medication: Klonopin 2mg PO TID Insomnia Continue home medication: Trazodone 50mg PO HS Prophylactic Care Heparin 5,000u SC q12h Protonix 40mg PO Daily SCDs DISPO: Dr. Harris will discuss case with Neuro and Cardio. If both approve, will plan to discharge over the weekend. All medical management per Dr. Tila Harris
--- NOTE | 2017-11-22 22:32 | CP.PCM.PN ---
Subjective - Date & Time of Evaluation Date of Evaluation: 11/21/17 Time of Evaluation: 13:00 - Subjective Subjective: Feels dizzy. Objective - Vital Signs/Intake and Output Vital Signs (last 24 hours): Temp Pulse Resp BP Pulse Ox 97.7 F 79 20 145/92 H 96 11/22/17 16:00 11/22/17 16:00 11/22/17 16:00 11/22/17 16:00 11/22/17 16:00 - Medications Medications: Current Medications Amlodipine Besylate (Norvasc) 5 mg PO DAILY [facility] Last Admin: 11/22/17 10:07 Dose: 5 mg Aspirin (Ecotrin) 81 mg PO DAILY [facility] Last Admin: 11/22/17 10:06 Dose: 81 mg Benzocaine/Menthol (Cepacol Sore Throat) 1 [place]on MT Q6H PRN PRN Reason: Sore Throat Last Admin: 11/22/17 17:34 Dose: 1 carson Clonazepam (Klonopin) 2 mg PO TID [facility] Last Admin: 11/22/17 17:33 Dose: 2 mg Diclofenac Sodium (Voltaren) 50 mg PO BID [facility] Last Admin: 11/22/17 17:33 Dose: 50 mg Duloxetine HCl (Cymbalta) 60 mg PO DAILY [facility] Last Admin: 11/22/17 10:06 Dose: 60 mg Escitalopram Oxalate (Lexapro) 20 mg PO DAILY [facility] Last Admin: 11/22/17 10:06 Dose: 20 mg Heparin Sodium (Porcine) (Heparin) 5,000 units SC Q12 [facility] Last Admin: 11/22/17 10:07 Dose: 5,000 units Influenza Virus Vaccine (Fluzone Quad [id number]) 60 mcg IM .ONCE ONE Stop: 11/23/17 10:01 Ondansetron HCl (Zofran Inj) 4 mg IVP Q6H PRN PRN Reason: Nausea/Vomiting Last Admin: 11/22/17 14:58 Dose: 4 mg Oxycodone HCl (Oxycodone Immediate Release Tab) 15 mg PO Q3H PRN PRN Reason: Pain, moderate (4-7) Last Admin: 11/22/17 21:32 Dose: 15 mg Pantoprazole Sodium (Protonix Ec Tab) 40 mg PO DAILY [facility] Last Admin: 11/22/17 10:06 Dose: 40 mg Risperidone (Risperdal Tab) 2 mg PO BID [facility] Last Admin: 11/22/17 17:33 Dose: 2 mg Rosuvastatin Calcium (Crestor) 10 mg PO [facility] Last Admin: 11/22/17 22:29 Dose: 10 mg Tolterodine Tartrate (Detrol La) 4 mg PO DAILY [facility] Last Admin: 11/22/17 10:06 Dose: 4 mg Trazodone HCl (Desyrel) 50 mg PO [facility] Last Admin: 11/22/17 22:29 Dose: 50 mg - Labs Labs: 11/21/17 07:44 11/21/17 07:44 PT 14.2 SECONDS (9.7-12.2) H 11/18/17 13:41 INR 1.3 11/18/17 13:41 APTT 29 SECONDS (21-34) 11/18/17 13:41 - Head Exam Head Exam: ATRAUMATIC - Eye Exam Eye Exam: Normal appearance - ENT Exam ENT Exam: Mucous Membranes Dry - Respiratory Exam Respiratory Exam: NORMAL BREATHING PATTERN - Cardiovascular Exam Cardiovascular Exam: +S1, +S2 - GI/Abdominal Exam GI & Abdominal Exam: Normal Bowel Sounds Assessment and Plan (1) Syncope Assessment & Plan: f/u MRI brain results rule out seizure neurology f/u Status: Acute (2) Pancytopenia Assessment & Plan: secondary to chemotherapy Status: Acute (3) Colon cancer Assessment & Plan: stage IV lung and liver mets outpatient treatment Status: Acute
--- NOTE | 2017-11-22 22:34 | CP.PCM.PN ---
Subjective - Date & Time of Evaluation Date of Evaluation: 11/22/17 Time of Evaluation: 18:00 - Subjective Subjective: Feels dizzy. Objective - Vital Signs/Intake and Output Vital Signs (last 24 hours): Temp Pulse Resp BP Pulse Ox 97.7 F 79 20 145/92 H 96 11/22/17 16:00 11/22/17 16:00 11/22/17 16:00 11/22/17 16:00 11/22/17 16:00 - Medications Medications: Current Medications Amlodipine Besylate (Norvasc) 5 mg PO DAILY [facility] Last Admin: 11/22/17 10:07 Dose: 5 mg Aspirin (Ecotrin) 81 mg PO DAILY [facility] Last Admin: 11/22/17 10:06 Dose: 81 mg Benzocaine/Menthol (Cepacol Sore Throat) 1 carson MT Q6H PRN PRN Reason: Sore Throat Last Admin: 11/22/17 17:34 Dose: 1 carson Clonazepam (Klonopin) 2 mg PO TID [facility] Last Admin: 11/22/17 17:33 Dose: 2 mg Diclofenac Sodium (Voltaren) 50 mg PO BID [facility] Last Admin: 11/22/17 17:33 Dose: 50 mg Duloxetine HCl (Cymbalta) 60 mg PO DAILY [facility] Last Admin: 11/22/17 10:06 Dose: 60 mg Escitalopram Oxalate (Lexapro) 20 mg PO DAILY [facility] Last Admin: 11/22/17 10:06 Dose: 20 mg Heparin Sodium (Porcine) (Heparin) 5,000 units SC Q12 [facility] Last Admin: 11/22/17 10:07 Dose: 5,000 units Influenza Virus Vaccine (Fluzone Quad [id number]) 60 mcg IM .ONCE ONE Stop: 11/23/17 10:01 Ondansetron HCl (Zofran Inj) 4 mg IVP Q6H PRN PRN Reason: Nausea/Vomiting Last Admin: 11/22/17 14:58 Dose: 4 mg Oxycodone HCl (Oxycodone Immediate Release Tab) 15 mg PO Q3H PRN PRN Reason: Pain, moderate (4-7) Last Admin: 11/22/17 21:32 Dose: 15 mg Pantoprazole Sodium (Protonix Ec Tab) 40 mg PO DAILY [facility] Last Admin: 11/22/17 10:06 Dose: 40 mg Risperidone (Risperdal Tab) 2 mg PO BID [facility] Last Admin: 11/22/17 17:33 Dose: 2 mg Rosuvastatin Calcium (Crestor) 10 mg PO [facility] Last Admin: 11/22/17 22:29 Dose: 10 mg Tolterodine Tartrate (Detrol La) 4 mg PO DAILY [facility] Last Admin: 11/22/17 10:06 Dose: 4 mg Trazodone HCl (Desyrel) 50 mg PO [facility] Last Admin: 11/22/17 22:29 Dose: 50 mg - Labs Labs: 11/21/17 07:44 11/21/17 07:44 PT 14.2 SECONDS (9.7-12.2) H 11/18/17 13:41 INR 1.3 11/18/17 13:41 APTT 29 SECONDS (21-34) 11/18/17 13:41 - Head Exam Head Exam: ATRAUMATIC - Eye Exam Eye Exam: Normal appearance - ENT Exam ENT Exam: Mucous Membranes Dry - Respiratory Exam Respiratory Exam: NORMAL BREATHING PATTERN - Cardiovascular Exam Cardiovascular Exam: +S1, +S2 - GI/Abdominal Exam GI & Abdominal Exam: Normal Bowel Sounds Assessment and Plan (1) Syncope Assessment & Plan: MRI brain negative for CVA rule out seizure neurology f/u Status: Acute (2) Pancytopenia Assessment & Plan: secondary to chemotherapy Status: Acute (3) Colon cancer Assessment & Plan: stage IV lung and liver mets outpatient treatment Status: Acute
--- NOTE | 2017-11-22 22:36 | CP.PCM.PN ---
Subjective - Date & Time of Evaluation Date of Evaluation: 11/22/17 Time of Evaluation: 14:10 - Subjective Subjective: Patient seen and evaluated Still dizzy spells cardiac work up negative Metastatic Ca HTN Dizziness Objective - Vital Signs/Intake and Output Vital Signs (last 24 hours): Temp Pulse Resp BP Pulse Ox 97.7 F 79 20 145/92 H 96 11/22/17 16:00 11/22/17 16:00 11/22/17 16:00 11/22/17 16:00 11/22/17 16:00 - Medications Medications: Current Medications Amlodipine Besylate (Norvasc) 5 mg PO DAILY [facility] Last Admin: 11/22/17 10:07 Dose: 5 mg Aspirin (Ecotrin) 81 mg PO DAILY [facility] Last Admin: 11/22/17 10:06 Dose: 81 mg Benzocaine/Menthol (Cepacol Sore Throat) 1 carson MT Q6H PRN PRN Reason: Sore Throat Last Admin: 11/22/17 17:34 Dose: 1 carson Clonazepam (Klonopin) 2 mg PO TID [facility] Last Admin: 11/22/17 17:33 Dose: 2 mg Diclofenac Sodium (Voltaren) 50 mg PO BID [facility] Last Admin: 11/22/17 17:33 Dose: 50 mg Duloxetine HCl (Cymbalta) 60 mg PO DAILY [facility] Last Admin: 11/22/17 10:06 Dose: 60 mg Escitalopram Oxalate (Lexapro) 20 mg PO DAILY [facility] Last Admin: 11/22/17 10:06 Dose: 20 mg Heparin Sodium (Porcine) (Heparin) 5,000 units SC Q12 [facility] Last Admin: 11/22/17 22:32 Dose: 5,000 units Influenza Virus Vaccine (Fluzone Quad [id number]) 60 mcg IM .ONCE ONE Stop: 11/23/17 10:01 Ondansetron HCl (Zofran Inj) 4 mg IVP Q6H PRN PRN Reason: Nausea/Vomiting Last Admin: 11/22/17 14:58 Dose: 4 mg Oxycodone HCl (Oxycodone Immediate Release Tab) 15 mg PO Q3H PRN PRN Reason: Pain, moderate (4-7) Last Admin: 11/22/17 21:32 Dose: 15 mg Pantoprazole Sodium (Protonix Ec Tab) 40 mg PO DAILY [facility] Last Admin: 11/22/17 10:06 Dose: 40 mg Risperidone (Risperdal Tab) 2 mg PO BID [facility] Last Admin: 11/22/17 17:33 Dose: 2 mg Rosuvastatin Calcium (Crestor) 10 mg PO HS [facility] Last Admin: 11/22/17 22:29 Dose: 10 mg Tolterodine Tartrate (Detrol La) 4 mg PO DAILY [facility] Last Admin: 11/22/17 10:06 Dose: 4 mg Trazodone HCl (Desyrel) 50 mg PO HS [facility] Last Admin: 11/22/17 22:29 Dose: 50 mg - Labs Labs: 11/21/17 07:44 11/21/17 07:44 PT 14.2 SECONDS (9.7-12.2) H 11/18/17 13:41 INR 1.3 11/18/17 13:41 APTT 29 SECONDS (21-34) 11/18/17 13:41
[2017-11-23] MEDS: oxyCODONE 5 mg Immediate Release Tab PO PRN ×3 (01:17→13:18)
[2017-11-23 08:21] VITALS: TEMP 98; O2SAT 95
[2017-11-23] MEDS: Tolterodine 4 mg ER Cap PO SCH (09:52)
[2017-11-23] MEDS: Pantoprazole 40 mg EC Tab PO SCH (09:52)
[2017-11-23] MEDS: Diclofenac Sodium Delayed Release 50 mg EC Tab PO SCH (09:52)
[2017-11-23] MEDS ORDERED: Influenza Vaccine 60 MCG/0.5 ML SYR (3 yr & up) IM ONE (10:00)
--- NOTE | 2017-11-23 10:37 | CP.PCM.PN ---
Subjective - Date & Time of Evaluation Date of Evaluation: 11/23/17 Time of Evaluation: 09:00 - Subjective Subjective: clinically same Objective - Vital Signs/Intake and Output Vital Signs (last 24 hours): Temp Pulse Resp BP Pulse Ox 98 F 86 20 109/71 95 11/23/17 08:00 11/23/17 08:00 11/23/17 08:00 11/23/17 08:00 11/23/17 08:00 Intake and Output: 11/23/17 11/23/17 06:59 18:59 Intake Total 200 Balance 200 - Medications Medications: Current Medications Amlodipine Besylate (Norvasc) 5 mg PO DAILY [facility] Last Admin: 11/23/17 09:53 Dose: Not Given Aspirin (Ecotrin) 81 mg PO DAILY [facility] Last Admin: 11/23/17 09:52 Dose: 81 mg Benzocaine/Menthol (Cepacol Sore Throat) 1 carson MT Q6H PRN PRN Reason: Sore Throat Last Admin: 11/22/17 17:34 Dose: 1 carson Clonazepam (Klonopin) 2 mg PO TID [facility] Last Admin: 11/23/17 09:57 Dose: Not Given Diclofenac Sodium (Voltaren) 50 mg PO BID [facility] Last Admin: 11/23/17 09:52 Dose: 50 mg Duloxetine HCl (Cymbalta) 60 mg PO DAILY [facility] Last Admin: 11/23/17 09:51 Dose: 60 mg Escitalopram Oxalate (Lexapro) 20 mg PO DAILY [facility] Last Admin: 11/23/17 09:57 Dose: Not Given Heparin Sodium (Porcine) (Heparin) 5,000 units SC Q12 [facility] Last Admin: 11/23/17 09:52 Dose: 5,000 units Ondansetron HCl (Zofran Inj) 4 mg IVP Q6H PRN PRN Reason: Nausea/Vomiting Last Admin: 11/22/17 14:58 Dose: 4 mg Oxycodone HCl (Oxycodone Immediate Release Tab) 15 mg PO Q3H PRN PRN Reason: Pain, moderate (4-7) Last Admin: 11/23/17 08:15 Dose: 15 mg Pantoprazole Sodium (Protonix Ec Tab) 40 mg PO DAILY [facility] Last Admin: 11/23/17 09:52 Dose: 40 mg Risperidone (Risperdal Tab) 2 mg PO BID [facility] Last Admin: 11/23/17 09:52 Dose: 2 mg Rosuvastatin Calcium (Crestor) 10 mg PO HS [facility] Last Admin: 11/22/17 22:29 Dose: 10 mg Tolterodine Tartrate (Detrol La) 4 mg PO DAILY [facility] Last Admin: 11/23/17 09:52 Dose: 4 mg Trazodone HCl (Desyrel) 50 mg PO [facility] Last Admin: 11/22/17 22:29 Dose: 50 mg - Labs Labs: 11/21/17 07:44 11/21/17 07:44 PT 14.2 SECONDS (9.7-12.2) H 11/18/17 13:41 INR 1.3 11/18/17 13:41 APTT 29 SECONDS (21-34) 11/18/17 13:41 - Constitutional Appears: Well - Head Exam Head Exam: ATRAUMATIC, NORMAL INSPECTION, NORMOCEPHALIC - Eye Exam Eye Exam: EOMI, Normal appearance, PERRL Pupil Exam: NORMAL ACCOMODATION, PERRL - ENT Exam ENT Exam: Mucous Membranes Moist, Normal Exam - Neck Exam Neck Exam: Full ROM, Normal Inspection. absent: Lymphadenopathy - Respiratory Exam Respiratory Exam: Decreased Breath Sounds - Cardiovascular Exam Cardiovascular Exam: REGULAR RHYTHM, +S1, +S2 - GI/Abdominal Exam GI & Abdominal Exam: Soft, Diminished Bowel Sounds - Rectal Exam Rectal Exam: Deferred
[2017-11-23 10:55] VITALS: BP 100/64; PULSE 91
--- NOTE | 2017-11-23 15:09 | CARD ---
APPROVED REPORT Date of service: 11/18/2017 EKG Measurement Heart [id number] <Conclusion> Normal sinus rhythm Inferior infarct, age undetermined Prolonged QT Abnormal ECG
--- NOTE | 2017-11-23 16:34 | CP.PCM.PN ---
Subjective - Date & Time of Evaluation Date of Evaluation: 11/23/17 Time of Evaluation: 11:00 - Subjective Subjective: alert, awake,DENIES ACUTE PAIN, NAD. Objective - Vital Signs/Intake and Output Vital Signs (last 24 hours): Temp Pulse Resp BP Pulse Ox 98 F 91 H 20 100/64 95 11/23/17 08:00 11/23/17 09:50 11/23/17 08:00 11/23/17 09:50 11/23/17 08:00 Intake and Output: 11/23/17 11/23/17 06:59 18:59 Intake Total 200 Balance 200 - Labs Labs: 11/21/17 07:44 11/21/17 07:44 PT 14.2 SECONDS (9.7-12.2) H 11/18/17 13:41 INR 1.3 11/18/17 13:41 APTT 29 SECONDS (21-34) 11/18/17 13:41 Assessment and Plan - Assessment and Plan (Free Text) Assessment: 46 yr old female admitted with syncope, pain, seen and examined. Alert and orientedx3, not in acute distress. Seen by DR Tila Harris, plan to discharge home today. Advised to follow up in the office in 1 week. Patient verbalized understanding. Advised to continue with her present home meds and bring it to the office when follow up.
== END 2017-11-23 14:45 | disposition home or self-care (01) | DRG 312 ==
LOC: C.ER 12:25 → C.9E 14:50 → C.5S 21:01
PROVIDERS: ADMIT Internal Medicine Nephrology; ATTEND Internal Medicine Nephrology
DX: R55 Syncope and collapse (principal); C18.9 Malignant neoplasm of colon, unspecified; C78.00 Secondary malignant neoplasm of unspecified lung; C78.7 Secondary malignant neoplasm of liver and intrahepatic bile duct; D61.818 Other pancytopenia; T43.595A Adverse effect of other antipsychotics and neuroleptics, initial encounter; D69.6 Thrombocytopenia, unspecified; T45.1X5A Adverse effect of antineoplastic and immunosuppressive drugs, initial encounter; F20.9 Schizophrenia, unspecified; F31.9 Bipolar disorder, unspecified; M06.9 Rheumatoid arthritis, unspecified; I10 Essential (primary) hypertension; E78.5 Hyperlipidemia, unspecified; J45.909 Unspecified asthma, uncomplicated; R32 Unspecified urinary incontinence; E66.9 Obesity, unspecified

== ENCOUNTER 2017-11-24 16:37 | Emergency (ER) | payer MEDICARE ==
[2017-11-24 16:37] VITALS: BMI 38.8
--- NOTE | 2017-11-24 17:26 | C.PDOC ---
History Of Present Illness 46 years old female with Hx of Bipolar disorder presents to ED for complaints of chest pain. Patient was an inpatient and discharged yesterday. pt was admitted multiple times and eval multiple times in er for similar and admitted multiple times with cards clearance. Patient states she has been having the chest pain for years with no new symptoms. Denies any other physical complaints. Time Seen by Provider: 11/24/17 16:58 Chief Complaint (Nursing): Chest Pain History Per: Patient History/Exam Limitations: no limitations Onset/Duration Of Symptoms: Hrs Current Symptoms Are (Timing): Still Present Modifying Factors: None Exacerbating Factors: None Alleviating Factors: None Recent travel outside of the [place]: No Past Medical History Reviewed: Historical Data, Nursing Documentation, Vital Signs Vital Signs: Last Vital Signs Temp 97.5 F L 11/24/17 16:48 Pulse 90 11/24/17 16:48 Resp 18 11/24/17 16:48 BP 122/85 11/24/17 16:48 Pulse Ox 96 11/24/17 16:48 - Medical History PMH: Anemia, Anxiety, Arthritis, Asthma, Back Problems, Bipolar Disorder, Depression, HTN, Malignancy (Colon), Rheumatoid Arthritis, Schizophrenia - [facility] Procedures CLOSED ENDOSCOPIC BIOPSY OF LARGE INTESTINE (05/23/14) COLONOSCOPY (08/12/14) DX ULTRASOUND-ABDOMEN (05/23/14) INSERTION OF TOTALLY IMPLANTABLE VASC ACCESS DEVIC (05/23/14) LAPAROSCOP LYSIS-PERITONEAL ADHES (05/23/14) LAPAROSCOPIC SIGMOIDECTOMY (05/23/14) OTHER ENDOSCOPY OF SM INTEST (05/23/14) PACKED CELL TRANSFUSION (05/23/14) PERCUTAN NEEDLE BX OF LIVER (05/23/14) REMOVAL OF VAD FROM TRUNK SUBCU/FASCIA, PERC APPROACH (03/16/15) Family History: States: No Known Family Hx - Social History Hx Tobacco Use: No Hx Alcohol Use: No Hx Substance Use: Yes (hx of cocaine use) - Immunization History Hx Tetanus Toxoid Vaccination: Yes Hx Influenza Vaccination: Yes Hx Pneumococcal Vaccination: Yes Review Of Systems Constitutional: Negative for: Fever, Chills Cardiovascular: Positive for: Chest Pain. Negative for: Palpitations Respiratory: Negative for: Cough, Shortness of Breath Gastrointestinal: Negative for: Nausea, Vomiting, Abdominal Pain, Diarrhea Skin: Negative for: Rash Neurological: Negative for: Weakness, Numbness Physical Exam - Physical Exam Appears: Non-toxic, No Acute Distress, Other (Anxious ) Skin: Normal Color, Warm, Dry, No Rash Head: Atraumatic, Normacephalic Eye(s): bilateral: Normal Inspection, PERRL, EOMI Oral Mucosa: Moist Neck: Supple Chest: Symmetrical, No Tenderness, Other (Digitally reproducible chest pain ) Cardiovascular: Rhythm Regular, No Murmur Respiratory: Normal Breath Sounds, No Rales, No Rhonchi, No Wheezing Gastrointestinal/Abdominal: Normal Exam, Bowel Sounds (Active ), Soft, No Tenderness, No Distention, No Guarding, No Rebound Extremity: Normal ROM, No Pedal Edema, No Deformity Extremity: Bilateral: Atraumatic, Normal Color And Temperature, Normal ROM Pulses: Left Radial: Normal, Right Radial: Normal Neurological/Psych: Oriented x3, Normal Speech, Other (No focal deficits ) Gait: Steady ED Course And Treatment O2 Sat by Pulse Oximetry: 96 (RA) Pulse Ox Interpretation: Normal Medical Decision Making Medical Decision Making: chronc cp for years no ekg changes neg enzymes and labs from yesterdya. no new symptoms. discussed with pmd agrees with outpt management Plan: * EKG EKG: * Normal sinus rhythm at 88 bpm * No ST/T wave changes Disposition - Disposition Referrals: [facility] [Outside] [facility] [Outside] Disposition: HOME/ ROUTINE Disposition Time: 05:00 Condition: STABLE Additional Instructions: return to er with worsening symtoms or concerns. Instructions: Chest Pain That Is Not Caused by the Heart (DC), Chronic Pain (DC) Forms: [employer] [facility] (Kittitian) - Clinical Impression Clinical Impression: Chronic chest pain - Scribe Statement The provider has reviewed the documentation as recorded by the Scribe Pillo Kohler All medical record entries made by the Scribe were at my direction and personally dictated by me. I have reviewed the chart and agree that the record accurately reflects my personal performance of the history, physical exam, medical decision making, and the department course for this patient. I have also personally directed, reviewed, and agree with the discharge instructions and disposition.
--- NOTE | 2017-11-24 17:28 | C.PDOC ---
Time Seen by Provider: 11/24/17 16:58 Chief Complaint (Nursing): Chest Pain Past Medical History Vital Signs: Last Vital Signs Temp 97.5 F L 11/24/17 16:48 Pulse 90 11/24/17 16:48 Resp 18 11/24/17 16:48 BP 122/85 11/24/17 16:48 Pulse Ox 96 11/24/17 16:48 - Medical History PMH: Anemia, Anxiety, Arthritis, Asthma, Back Problems, Bipolar Disorder, Depression, HTN, Malignancy (Colon), Rheumatoid Arthritis, Schizophrenia Denies: Chronic Kidney Disease - [facility] Procedures CLOSED ENDOSCOPIC BIOPSY OF LARGE INTESTINE (05/23/14) COLONOSCOPY (08/12/14) DX ULTRASOUND-ABDOMEN (05/23/14) INSERTION OF TOTALLY IMPLANTABLE VASC ACCESS DEVIC (05/23/14) LAPAROSCOP LYSIS-PERITONEAL ADHES (05/23/14) LAPAROSCOPIC SIGMOIDECTOMY (05/23/14) OTHER ENDOSCOPY OF SM INTEST (05/23/14) PACKED CELL TRANSFUSION (05/23/14) PERCUTAN NEEDLE BX OF LIVER (05/23/14) REMOVAL OF VAD FROM TRUNK SUBCU/FASCIA, PERC APPROACH (03/16/15) - Social History Hx Tobacco Use: No Hx Alcohol Use: No Hx Substance Use: Yes (hx of cocaine use) - Immunization History Hx Tetanus Toxoid Vaccination: Yes Hx Influenza Vaccination: Yes Hx Pneumococcal Vaccination: Yes ED Course And Treatment O2 Sat by Pulse Oximetry: 96 Disposition - Disposition Referrals: [facility] [Outside] [facility] [Outside] Disposition: HOME/ ROUTINE Disposition Time: 17:23 Condition: STABLE Additional Instructions: return to er with worsening symtoms or concerns. Instructions: Chest Pain That Is Not Caused by the Heart (DC), Chronic Pain (DC) Forms: [employer] (Swazi) - Clinical Impression Clinical Impression: Chronic chest pain
[2017-11-24 17:32] VITALS: BP 138/76; PULSE 89; RESP 16; TEMP 98
[2017-11-25 07:38] VITALS: O2SAT 96
== END 2017-11-24 17:31 | disposition home or self-care (01) ==
LOC: C.ER 16:37
DX: G89.29 Other chronic pain (principal); R07.9 Chest pain, unspecified; F20.9 Schizophrenia, unspecified; I10 Essential (primary) hypertension; M06.9 Rheumatoid arthritis, unspecified; Z85.038 Personal history of other malignant neoplasm of large intestine

== ENCOUNTER 2017-12-04 13:24 | Emergency (ER) | payer MEDICARE ==
[2017-12-04 13:25] VITALS: BMI 38.8
--- NOTE | 2017-12-04 14:32 | RAD ---
HISTORY: chest pain COMPARISON: Chest x-ray performed 11/18/17 TECHNIQUE: Chest, one view. FINDINGS: Examination limited by habitus. Right-sided MediPort catheter extends to the expected location of the SVC. LUNGS: No focal consolidation. Please note that chest x-ray has limited sensitivity for the detection of pulmonary masses. PLEURA: No significant pleural effusion identified. No definite pneumothorax . CARDIOVASCULAR: Heart size appears within normal limits. OSSEOUS STRUCTURES: Degenerative changes. VISUALIZED UPPER ABDOMEN: Unremarkable. OTHER FINDINGS: None. IMPRESSION: Right-sided MediPort.
--- NOTE | 2017-12-04 14:34 | C.PDOC ---
History Of Present Illness 46-year-old female, whose PMHx includes stage 4 colon cancer liver and lung metastasis, depression and bipolar disorder, presents to the ED for evaluation after sudden onset of sharp, left-sided chest pain which began while she was e ating lunch one hour prior to arrival. Patient notes pain radiates into her left shoulder and has been constant since onset. She states the pain took her breath away and reports diaphoresis and nausea. Patient reports experiencing similar symptoms in the past; she was evaluated in the ED on 11/24 for a similar complaint and underwent labwork, CXR, and EKG. All results were unremarkable and patient was discharged home. Patient has recent history of admission for chronic persistent abdominal pain and syncopal episode and all of her workup was unremarkable. Patient denies vomiting, extremity numbness/weakness at this time. Time Seen by Provider: 12/04/17 13:54 Chief Complaint (Nursing): Chest Pain History Per: Patient History/Exam Limitations: no limitations Onset/Duration Of Symptoms: Hrs Current Symptoms Are (Timing): Still Present Quality: Sharp, "Pain" Associated Symptoms: Nausea, Diaphoresis Additional History Per: Patient Past Medical History Reviewed: Historical Data, Nursing Documentation, Vital Signs - Medical History PMH: Anemia, Anxiety, Arthritis, Asthma, Back Problems, Bipolar Disorder, Depression, HTN, Malignancy (Colon), Rheumatoid Arthritis, Schizophrenia Denies: Chronic Kidney Disease Surgical History: No Surg Hx - [facility] Procedures CLOSED ENDOSCOPIC BIOPSY OF LARGE INTESTINE (05/23/14) COLONOSCOPY (08/12/14) DX ULTRASOUND-ABDOMEN (05/23/14) INSERTION OF TOTALLY IMPLANTABLE VASC ACCESS DEVIC (05/23/14) LAPAROSCOP LYSIS-PERITONEAL ADHES (05/23/14) LAPAROSCOPIC SIGMOIDECTOMY (05/23/14) OTHER ENDOSCOPY OF SM INTEST (05/23/14) PACKED CELL TRANSFUSION (05/23/14) PERCUTAN NEEDLE BX OF LIVER (05/23/14) REMOVAL OF VAD FROM TRUNK SUBCU/FASCIA, PERC APPROACH (03/16/15) Family History: States: Unknown Family Hx - Social History Hx Tobacco Use: No Hx Alcohol Use: No Hx Substance Use: Yes (hx of cocaine use) - Immunization History Hx Tetanus Toxoid Vaccination: Yes Hx Influenza Vaccination: Yes Hx Pneumococcal Vaccination: Yes Review Of Systems Cardiovascular: Positive for: Chest Pain (left-sided) Gastrointestinal: Positive for: Nausea. Negative for: Vomiting Musculoskeletal: Positive for: Shoulder Pain (left) Neurological: Negative for: Weakness, Numbness Physical Exam - Physical Exam Appears: Non-toxic, No Acute Distress Skin: Normal Color, Warm, Dry Head: Atraumatic, Normacephalic Eye(s): bilateral: Normal Inspection Oral Mucosa: Moist Neck: Supple Chest: Symmetrical, No Deformity, Tenderness (to left chest wall, along sternal border and anteriorly along pectoralis muscle ) Cardiovascular: Rhythm Regular, No Murmur Respiratory: Normal Breath Sounds, No Rales, No Rhonchi, No Wheezing Extremity: Normal ROM, Capillary Refill (less than 2 seconds ) Neurological/Psych: Oriented x3, Normal Speech, Normal Cognition ED Course And Treatment - Laboratory Results Result Diagrams: 12/04/17 15:02 12/04/17 15:02 Lab Interpretation: No Acute Changes ECG: Interpreted By Me ECG Rhythm: Sinus Rhythm ECG Interpretation: No Acute Changes - CT Scan/US CT angio chest PE study Other Rad Studies (CT/US): Read By Radiologist, Radiology Report Reviewed CT/US Interpretation: Accession No. : [id number]. Patient Name / ID : PELON CRUZ / [id number]. Exam Date : 12/04/2017 16:03:44 ( Approved ). Study Comment : Sex / Age : F / 46Y. Creator : Iesha Álvarez. Dictator : Tamir Baeza MD. Textile Conversion Manager : Excavating Contractor : Tamir Baeza MD. Approver2 : Report Date : 12/04/2017 16:21:32. My Comment : . Date of service: 12/04/2017. PROCEDURE: CT Chest with contrast (Pulmonary Angiogram). HISTORY: chest pain. COMPARISON: None available. TECHNIQUE: Axial computed tomography images were obtained of the chest in the pulmonary arterial phase of enhancement. Coronal and sagittal reformatted images were created and reviewed. Intravenous contrast dose: Radiation dose: Total exam DLP = mGy-cm. This CT exam was performed using one or more of the following dose reduction techniques: Automated exposure control, adjustment of the mA and/or kV according to patient size, and/or use of iterative r econstruction technique. FINDINGS: PULMONARY ARTERIES: Unremarkable. No pulmonary embolism. AORTA: No acute findings. No thoracic aortic aneurysm. LUNGS: Stable 1.2 cm right upper lobe nodule remains suspicious for metastasis but has not increased in size in the interval. No definite interval new nodule bilaterally. Central airways remain clear. No infiltrates bilaterally. PLEURAL SPACES: Unremarkable. No effusion or pneumothorax. HEART: Unremarkable. No cardiomegaly. No significant pericardial effusion. LYMPH NODES: No lymphadenopathy. BONES, CHEST WALL: Unremarkable. No fracture or destructive lesion. OTHER FINDINGS: Splenomegaly again evident up to 16.9 cm. IMPRESSION: Though no CT evidence of interval pulmonary embolus. Stable solitary pulmonary nodule right apex 1.2 cm once again. No interval new nodule or lymphadenopathy in the chest. Follow-up nuclear PET scan may be helpful given this patient's clinical history of known colon cancer. Otherwise, clinica l and CT follow-up advised. Splenomegaly to 16.9 cm reiterated. Progress Note: Will rule out PE, considering patient has risk factors. Bloodwork, CT Angio Chest, CXR ordered and reviewed. Reevaluation Time: 17:02 Reassessment Condition: Improved Disposition Counseled Patient/Family Regarding: Studies Performed, Diagnosis, Need For Followup - Disposition Referrals: Shaik Saxena MD [Staff Provider] - Disposition: HOME/ ROUTINE Disposition Time: 17:05 Condition: IMPROVED Instructions: Chest Pain That Is Not Caused by the Heart (DC) Forms: [employer] (Belarusian) - Clinical Impression Clinical Impression: Chest pain - Scribe Statement The provider has reviewed the documentation as recorded by the Scribe (Jana Harris) Provider Attestation: All medical record entries made by the Scribe were at my direction and personally dictated by me. I have reviewed the chart and agree that the record accurately reflects my personal performance of the history, physical exam, medical decision making, and the department course for this patient. I have also personally directed, reviewed, and agree with the discharge instructions and disposition.
[2017-12-04 15:10] LABS: BASO % 0.3 % (0.0-2.0); EOS % 0.6 % (0.0-4.0); HEMOGLOBIN 10.9 g/dL (11.0-16.0); LYMPH # 0.9 K/uL (1.0-4.3); LYMPH % 16.5 % (20.0-40.0); MEAN CELL VOLUME 79.7 fL (81.0-99.0); MEAN CORPUSCULAR HEMOGLOBIN 26.5 pg (27.0-31.0); MEAN CORPUSCULAR HGB CONC 33.3 g/dL (33.0-37.0); MEAN PLATELET VOLUME 7.7 fL (7.2-11.7); MONO # 0.3 K/uL (0.0-0.8); MONO % 5.9 % (0.0-10.0); NEUT # 4.2 K/uL (1.8-7.0); NEUT % 76.7 % (50.0-75.0); NRBC % 0.1 % (0.0-2.0); RBC 4.09 Mil/uL (3.80-5.20); RED CELL DISTRIBUTION WIDTH 17.7 % (11.5-14.5)
[2017-12-04 15:13] LABS: WHITE BLOOD COUNT 5.5 K/uL (4.8-10.8)
[2017-12-04 15:31] LABS: ALB/GLOB RATIO 1.3 (1.0-2.1); ALBUMIN 3.6 g/dL (3.5-5.0); ALT/SGPT 19 U/L (9-52); AST/SGOT 17 U/L (14-36); BLOOD UREA NITROGEN 8 mg/dL (7-17); CALCIUM 8.9 mg/dl (8.6-10.4); GFR NON-AFRICAN AMERICAN > 60
[2017-12-04] MEDS ORDERED: Iodixanol 320 mg/ml 150 ml Bottle IV ONE (15:55)
[2017-12-04] MEDS ORDERED: Oxycodone/Acetaminophen 5/325 mg Tab PO STA (16:27)
[2017-12-04] MEDS ORDERED: Oxycodone/Acetaminophen 5/325 mg Tab ONE (16:38)
--- NOTE | 2017-12-04 16:52 | CT ---
Date of service: 12/04/2017 PROCEDURE: CT Chest with contrast (Pulmonary Angiogram) HISTORY: chest pain COMPARISON: None available. TECHNIQUE: Axial computed tomography images were obtained of the chest in the pulmonary arterial phase of enhancement. Coronal and sagittal reformatted images were created and reviewed. Intravenous contrast dose: Radiation dose: Total exam DLP = mGy-cm. This CT exam was performed using one or more of the following dose reduction techniques: Automated exposure control, adjustment of the mA and/or kV according to patient size, and/or use of iterative reconstruction technique. FINDINGS: PULMONARY ARTERIES: Unremarkable. No pulmonary embolism. AORTA: No acute findings. No thoracic aortic aneurysm. LUNGS: Stable 1.2 cm right upper lobe nodule remains suspicious for metastasis but has not increased in size in the interval. No definite interval new nodule bilaterally. Central airways remain clear. No infiltrates bilaterally. PLEURAL SPACES: Unremarkable. No effusion or pneumothorax. HEART: Unremarkable. No cardiomegaly. No significant pericardial effusion. LYMPH NODES: No lymphadenopathy. BONES, CHEST WALL: Unremarkable. No fracture or destructive lesion OTHER FINDINGS: Splenomegaly again evident up to 16.9 cm. IMPRESSION: Though no CT evidence of interval pulmonary embolus. Stable solitary pulmonary nodule right apex 1.2 cm once again. No interval new nodule or lymphadenopathy in the chest. Follow-up nuclear PET scan may be helpful given this patient's clinical history of known colon cancer. Otherwise, clinical and CT follow-up advised. Splenomegaly to 16.9 cm reiterated.
[2017-12-04 17:22] VITALS: BP 157/98; PULSE 89; RESP 16; TEMP 98.5; O2SAT 98
--- NOTE | 2017-12-06 14:54 | CARD ---
APPROVED REPORT Date of service: 12/04/2017 EKG Measurement Heart [id number] <Conclusion> Normal sinus rhythm Possible Left atrial enlargement Prolonged QT Abnormal ECG
== END 2017-12-04 17:22 | disposition home or self-care (01) ==
LOC: C.ER 13:24
DX: R07.9 Chest pain, unspecified (principal); I10 Essential (primary) hypertension; F41.9 Anxiety disorder, unspecified; C18.9 Malignant neoplasm of colon, unspecified; C78.00 Secondary malignant neoplasm of unspecified lung; C78.7 Secondary malignant neoplasm of liver and intrahepatic bile duct
CPT/HCPCS: 71045; 71275; 80053; 84484; 85025; 85378; 93005; 99284; Q9967

== ENCOUNTER 2017-12-05 09:41 | Inpatient (IN) | payer MEDICARE ==
[2017-12-05 09:41] VITALS: BMI 38.8
--- NOTE | 2017-12-05 11:06 | C.PDOC ---
History Of Present Illness 46 year old female, whose PMHx includes stage 4 colon cancer, anxiety, and hypertension, presents to the ED for evaluation of left-sided chest pain which began yesterday. Patient states the pain radiates into her left arm and is worse with movement. Symptoms began while she was sitting at a bar, drinking a club and cranberry drink. Patient has experienced similar symptoms in the past including yesterday when she was evaluated in the ED and discharged home. Patient states the pain has persisted, prompting her to come in today. She denies cough, fever, abdominal pain, nausea, vomiting, neurological changes, extremity weakness. Time Seen by Provider: 12/05/17 10:22 Chief Complaint (Nursing): Chest Pain History Per: Patient History/Exam Limitations: no limitations Onset/Duration Of Symptoms: Hrs, Persistent Current Symptoms Are (Timing): Still Present Quality: "Pain" Associated Symptoms: denies: Nausea Exacerbating Factors: Movement Additional History Per: Patient Past Medical History Reviewed: Historical Data, Nursing Documentation, Vital Signs Vital Signs: Last Vital Signs Temp 97.9 F 12/05/17 10:07 Pulse 87 12/05/17 10:07 Resp 19 12/05/17 10:07 BP 153/87 H 12/05/17 10:07 Pulse Ox 97 12/05/17 10:07 - Medical History PMH: Anemia, Anxiety, Arthritis, Asthma, Back Problems, Bipolar Disorder, Depression, HTN, Malignancy (Colon), Rheumatoid Arthritis, Schizophrenia Denies: Chronic Kidney Disease Surgical History: No Surg Hx - [facility] Procedures CLOSED ENDOSCOPIC BIOPSY OF LARGE INTESTINE (05/23/14) COLONOSCOPY (08/12/14) DX ULTRASOUND-ABDOMEN (05/23/14) INSERTION OF TOTALLY IMPLANTABLE VASC ACCESS DEVIC (05/23/14) LAPAROSCOP LYSIS-PERITONEAL ADHES (05/23/14) LAPAROSCOPIC SIGMOIDECTOMY (05/23/14) OTHER ENDOSCOPY OF SM INTEST (05/23/14) PACKED CELL TRANSFUSION (05/23/14) PERCUTAN NEEDLE BX OF LIVER (05/23/14) REMOVAL OF VAD FROM TRUNK SUBCU/FASCIA, PERC APPROACH (03/16/15) Family History: States: Unknown Family Hx - Social History Hx Tobacco Use: No Hx Alcohol Use: No Hx Substance Use: Yes (hx of cocaine use) - Immunization History Hx Tetanus Toxoid Vaccination: Yes Hx Influenza Vaccination: Yes Hx Pneumococcal Vaccination: Yes Review Of Systems Cardiovascular: Positive for: Chest Pain (left-sided) Gastrointestinal: Negative for: Nausea, Vomiting Musculoskeletal: Positive for: Arm Pain (left ) Neurological: Negative for: Weakness, Numbness Physical Exam - Physical Exam Appears: Non-toxic, No Acute Distress Skin: Normal Color, Warm, Dry Head: Atraumatic, Normacephalic Eye(s): bilateral: Normal Inspection, EOMI Nose: Normal Oral Mucosa: Moist Neck: Normal, Normal ROM, Supple Chest: Symmetrical, No Deformity, Tenderness (reproducible tenderness to left chest wall ) Cardiovascular: Rhythm Regular Respiratory: Normal Breath Sounds, No Rales, No Rhonchi, No Wheezing Gastrointestinal/Abdominal: Soft, No Tenderness Extremity: Normal ROM, Capillary Refill (less than 2 seconds ) Neurological/Psych: Oriented x3, Normal Speech, Normal Cognition Gait: Steady ED Course And Treatment - Laboratory Results Result Diagrams: 12/05/17 11:32 12/05/17 11:32 ECG: Interpreted By Me, Viewed By Me ECG Rhythm: Sinus Rhythm Rate From EC (BPM) O2 Sat by Pulse Oximetry: 97 (on RA) Pulse Ox Interpretation: Normal Progress Note: Bloodwork ordered and reviewed. Aspirin PO given. Case discussed with Dr. Harris, who agreed upon admission. Disposition - Disposition Disposition: HOSPITALIZED Disposition Time: 15:00 Condition: STABLE - Clinical Impression Clinical Impression: Chest pain - PA / RADIOLOGIC TECH / Resident Statement MD/DO has reviewed & agrees with the documentation as recorded. - Scribe Statement The provider has reviewed the documentation as recorded by the Scribe (Jana Harris) All medical record entries made by the Scribe were at my direction and personally dictated by me. I have reviewed the chart and agree that the record accurately reflects my personal performance of the history, physical exam, medical decision making, and the department course for this patient. I have also personally directed, reviewed, and agree with the discharge instructions and disposition.
[2017-12-05 11:38] LABS: BASO % 0.6 % (0.0-2.0); EOS % 0.4 % (0.0-4.0); HEMOGLOBIN 10.9 g/dL (11.0-16.0); LYMPH % 14.8 % (20.0-40.0); MEAN CELL VOLUME 79.6 fL (81.0-99.0); MEAN PLATELET VOLUME 8.4 fL (7.2-11.7); MONO # 0.4 K/uL (0.0-0.8); MONO % 5.5 % (0.0-10.0); NEUT # 5.1 K/uL (1.8-7.0); NEUT % 78.7 % (50.0-75.0); RBC 4.04 Mil/uL (3.80-5.20); RED CELL DISTRIBUTION WIDTH 17.9 % (11.5-14.5); WHITE BLOOD COUNT 6.5 K/uL (4.8-10.8)
[2017-12-05 11:56] LABS: ALB/GLOB RATIO 1.2 (1.0-2.1); ALBUMIN 3.5 g/dL (3.5-5.0); ALT/SGPT 18 U/L (9-52); AST/SGOT 21 U/L (14-36); BLOOD UREA NITROGEN 8 mg/dL (7-17); GFR NON-AFRICAN AMERICAN > 60; LIPASE 71 U/L (23-300)
[2017-12-05 12:06] LABS: B-TYPE NATRIURETIC PEPTIDE 424 pg/mL (0-450); CK-MB 0.59 ng/mL (0.0-3.38)
[2017-12-05] MEDS: oxyCODONE 5 mg Immediate Release Tab PO PRN ×2 (17:47→22:48)
[2017-12-05] MEDS ORDERED: oxyCODONE 5 mg Immediate Release Tab ONE (17:48)
[2017-12-05] MEDS: Diclofenac Sodium Delayed Release 50 mg EC Tab PO SCH (19:09)
--- NOTE | 2017-12-05 22:09 | CP.PCM.HP ---
Past Patient History - Infectious Disease Hx of Infectious Diseases: None - Past Medical History & Family History Past Medical History?: Yes - Past Social History Smoking Status: Never Smoked - CARDIAC Hx Hypertension: Yes - PULMONARY Hx Asthma: Yes - NEUROLOGICAL Hx Neurological Disorder: No - HEENT Hx HEENT Problems: No - RENAL Hx Chronic Kidney Disease: No - ENDOCRINE/METABOLIC Hx Endocrine Disorders: No - HEMATOLOGICAL/ONCOLOGICAL Hx Anemia: Yes - INTEGUMENTARY Hx Dermatological Problems: No - MUSCULOSKELETAL/RHEUMATOLOGICAL Hx Arthritis: Yes Hx Rheumatoid Arthritis: Yes - GASTROINTESTINAL Hx Gastrointestinal Disorders: Yes Hx Bowel Surgery: Yes Other/Comment: COLON CANCER STAGE 4 WITH CHEMOTHERAPY. R side port a cath - GENITOURINARY/GYNECOLOGICAL Hx Genitourinary Disorders: No - PSYCHIATRIC Hx Anxiety: Yes Hx Bipolar Disorder: Yes Hx Depression: Yes Hx Schizophrenia: Yes Hx Substance Use: Yes (hx of cocaine use) - SURGICAL HISTORY Hx Surgeries: Yes (SEE COMMENT) Hx Orthopedic Surgery: Yes (left knee TKR 03/2017) Hx Tubal Ligation: Yes (2005) Hx Vascular Access Device: Yes (RIGHT SUBCLAVIAN 2014) Other/Comment: colon cancer surgery april 2014 to remove tumor, rt side subclavian Port - ANESTHESIA Hx Anesthesia: Yes Hx Anesthesia Reactions: No Hx Malignant Hyperthermia: No Meds Allergies/Adverse Reactions: Allergies Allergy/AdvReac Type Severity Reaction Status Date / Time No Known Allergies Allergy Verified 12/04/17 13:33 Physical Exam - Constitutional Appears: Well - Head Exam Head Exam: ATRAUMATIC, NORMAL INSPECTION, NORMOCEPHALIC - Eye Exam Eye Exam: EOMI, Normal appearance, PERRL Pupil Exam: NORMAL ACCOMODATION, PERRL - ENT Exam ENT Exam: Mucous Membranes Moist, Normal Exam - Neck Exam Neck exam: Positive for: Normal Inspection - Respiratory Exam Respiratory Exam: Decreased Breath Sounds - Cardiovascular Exam Cardiovascular Exam: REGULAR RHYTHM, +S1, +S2 - GI/Abdominal Exam GI & Abdominal Exam: Diminished Bowel Sounds, Soft - Rectal Exam Rectal Exam: Deferred Results - Vital Signs Recent Vital Signs: Last Vital Signs Temp 98.0 F 12/05/17 19:00 Pulse 100 H 12/05/17 19:00 Resp 16 12/05/17 19:00 BP 135/84 12/05/17 19:00 Pulse Ox 99 12/05/17 19:00 - Labs Result Diagrams: 12/05/17 11:32 12/05/17 11:32 Labs: Laboratory Results - last 24 hr 12/05/17 12/05/17 12/05/17 11:32 11:32 21:42 WBC 6.5 RBC 4.04 Hgb 10.9 L Hct 32.1 L MCV 79.6 L MCH 27.0 MCHC 34.0 RDW 17.9 H Plt Count 124 L MPV 8.4 Neut % (Auto) 78.7 H Lymph % (Auto) 14.8 L [place] % (Auto) 5.5 Eos % (Auto) 0.4 Baso % (Auto) 0.6 Neut # (Auto) 5.1 Lymph # (Auto) 1.0 [place] # (Auto) 0.4 Eos # (Auto) 0.0 Baso # (Auto) 0.0 Sodium 139 Potassium 3.7 Chloride 102 Carbon Dioxide 27 Anion Gap 14 BUN 8 Creatinine 0.6 L Est GFR ( Amer) > 60 Est GFR (Non-Af Amer) > 60 Random Glucose 76 Calcium 9.0 Total Bilirubin 0.7 AST 21 ALT 18 Alkaline Phosphatase 63 Total Creatine Kinase 49 53 CK-MB (Mass) 0.59 Troponin I < 0.0120 NT-Pro-B Natriuret Pep 424 Total Protein 6.5 Albumin 3.5 Globulin 2.9 Albumin/Globulin Ratio 1.2 Lipase 71
[2017-12-05 22:15] LABS: CK-MB 0.53 ng/mL (0.0-3.38)
[2017-12-06 06:03] LABS: CK-MB 0.44 ng/mL (0.0-3.38)
[2017-12-06] MEDS: oxyCODONE 5 mg Immediate Release Tab PO PRN ×3 (06:06→19:40)
[2017-12-06] MEDS: Diclofenac Sodium Delayed Release 50 mg EC Tab PO SCH ×2 (10:36→17:06)
--- NOTE | 2017-12-06 11:23 | CP.PCM.PN ---
Subjective - Date & Time of Evaluation Date of Evaluation: 12/06/17 Time of Evaluation: 11:23 - Subjective Subjective: PGY-[address] Dionisio Harris's Service Patient seen and examined at bedside. Per nursing no acute events occurred overnight .Patient still reports chest with radiation to left arm. Patient denies any fevers, chills, headaches, syncopal episodes, changes in vision, or any other complaints. Past medical history: bipolar disorder, depression and metastatic colon cancer to liver and lungs Past surgical history: Knee surgery, portacatheter placement and removal Family history: Denies hematologic and oncologic problems Social history: Denies tobacco, alcohol, and illicit drug use. Allergies: NKDA Objective - Vital Signs/Intake and Output Vital Signs (last 24 hours): Temp Pulse Resp BP Pulse Ox 97.4 F L 79 20 119/82 96 12/06/17 07:59 12/06/17 07:59 12/06/17 07:59 12/06/17 07:59 12/06/17 07:59 - Medications Medications: Current Medications Aspirin (Aspirin) 325 mg PO DAILY [facility] Last Admin: 12/06/17 10:36 Dose: 325 mg Clonazepam (Klonopin) 2 mg PO TID [facility] Last Admin: 12/06/17 10:35 Dose: 2 mg Diclofenac Sodium (Voltaren) 50 mg PO BID [facility] Last Admin: 12/06/17 10:36 Dose: 50 mg Duloxetine HCl (Cymbalta) 30 mg PO DAILY [facility] Last Admin: 12/06/17 10:36 Dose: 30 mg Escitalopram Oxalate (Lexapro) 20 mg PO DAILY [facility] Last Admin: 12/06/17 10:36 Dose: 20 mg Home Med (Solifenacin Succinate [Vesicare]) 5 mg PO DAILY [facility] Morphine Sulfate (Morphine) 4 mg IVP Q8 PRN PRN Reason: Pain, severe (8-10) Oxycodone HCl (Oxycodone Immediate Release Tab) 15 mg PO Q3H PRN PRN Reason: Pain, moderate (4-7) Last Admin: 12/06/17 06:06 Dose: 15 mg Risperidone (Risperdal Tab) 2 mg PO BID [facility] Last Admin: 12/06/17 10:36 Dose: 2 mg Zolpidem Tartrate (Ambien) 5 mg PO HS [facility] Last Admin: 12/05/17 21:17 Dose: 5 mg - Labs Labs: 12/05/17 11:32 12/05/17 11:32 - Head Exam Head Exam: NORMAL INSPECTION - Eye Exam Eye Exam: EOMI, Normal appearance, PERRL Pupil Exam: NORMAL ACCOMODATION - ENT Exam ENT Exam: Mucous Membranes Moist, Normal Oropharynx - Neck Exam Neck Exam: absent: Lymphadenopathy - Respiratory Exam Respiratory Exam: Clear to Ausculation Bilateral, NORMAL BREATHING PATTERN. absent: Chest Wall Tenderness, Prolonged Expiratory Phase, Respiratory Distress - Cardiovascular Exam Cardiovascular Exam: REGULAR RHYTHM, +S1, +S2 - Extremities Exam Extremities Exam: Full ROM. absent: Pedal Edema - Back Exam Back Exam: NORMAL INSPECTION. absent: CVA tenderness (R), paraspinal tenderness - Neurological Exam Neurological Exam: Alert, Awake, CN II-XII Intact, Oriented x3 - Psychiatric Exam Psychiatric exam: Normal Affect, Normal Mood - Skin Skin Exam: Dry, Intact Assessment and Plan - Assessment and Plan (Free Text) Plan: Chest pain r/o ACS Cardiology consulted. Help appreciated. EKG: NSR. Negative ST-T changes Troponins (-)x3 Medications: Aspirin 325mg PO Daily Morphine 4mg IVP q8 PRN Urinary incontinence Tolterodine 4mg PO Daily Metastatic colon cancer Stage IV; mets to liver and lung Dr. Heath, Hem/Onc * outpatient chemo * thrombocytopenia secondary to chemo Lung biopsy (on 08/19/17): Metastatic adenocarcinoma. Consistent w/ primary colon source Continue home medications: * Oxycodone 15mg PO Q3H PRN for pain Hx of Anemia of Chronic Disease Hgb stable Monitor Bipolar disorder Continue home medication: Risperdal 2mg PO BID Depression Continue home medication: Cymbalta 30mg PO Daily Continue home medication: Lexapro 20mg PO Daily Anxiety Continue home medication: Klonopin 2mg PO TID Insomnia Continue home medication: Trazodone 50mg PO HS Prophylactic Care Protonix 40mg PO Daily SCDs All management per Dr. Dionisio Harris.
[2017-12-06] MEDS: Tolterodine 4 mg ER Cap PO SCH (14:02)
--- NOTE | 2017-12-06 14:42 | CP.PCM.PN ---
Subjective - Date & Time of Evaluation Date of Evaluation: 12/06/17 Time of Evaluation: 09:15 - Subjective Subjective: clinically same Objective - Vital Signs/Intake and Output Vital Signs (last 24 hours): Temp Pulse Resp BP Pulse Ox 97.4 F L 78 20 119/82 96 12/06/17 07:59 12/06/17 09:00 12/06/17 07:59 12/06/17 07:59 12/06/17 07:59 - Medications Medications: Current Medications Aspirin (Aspirin) 325 mg PO DAILY [facility] Last Admin: 12/06/17 10:36 Dose: 325 mg Clonazepam (Klonopin) 2 mg PO TID [facility] Last Admin: 12/06/17 14:02 Dose: 2 mg Diclofenac Sodium (Voltaren) 50 mg PO BID [facility] Last Admin: 12/06/17 10:36 Dose: 50 mg Duloxetine HCl (Cymbalta) 30 mg PO DAILY [facility] Last Admin: 12/06/17 10:36 Dose: 30 mg Escitalopram Oxalate (Lexapro) 20 mg PO DAILY [facility] Last Admin: 12/06/17 10:36 Dose: 20 mg Morphine Sulfate (Morphine) 4 mg IVP Q8 PRN PRN Reason: Pain, severe (8-10) Oxycodone HCl (Oxycodone Immediate Release Tab) 15 mg PO Q3H PRN PRN Reason: Pain, moderate (4-7) Last Admin: 12/06/17 11:54 Dose: 15 mg Pantoprazole Sodium (Protonix Ec Tab) 40 mg PO DAILY [facility] Risperidone (Risperdal Tab) 2 mg PO BID [facility] Last Admin: 12/06/17 10:36 Dose: 2 mg Tolterodine Tartrate (Detrol La) 4 mg PO DAILY [facility] Last Admin: 12/06/17 14:02 Dose: 4 mg Zolpidem Tartrate (Ambien) 5 mg PO HS [facility] Last Admin: 12/05/17 21:17 Dose: 5 mg - Labs Labs: 12/05/17 11:32 12/05/17 11:32
--- NOTE | 2017-12-06 15:39 | CARD ---
APPROVED REPORT Date of service: 12/05/2017 EKG Measurement Heart [id number] <Conclusion> Normal sinus rhythm Possible Left atrial enlargement Left ventricular hypertrophy Abnormal ECG
[2017-12-07] MEDS: oxyCODONE 5 mg Immediate Release Tab PO PRN ×3 (01:21→21:36)
[2017-12-07] MEDS: Tolterodine 4 mg ER Cap PO SCH (09:58)
[2017-12-07] MEDS: Pantoprazole 40 mg EC Tab PO SCH (09:59)
[2017-12-07] MEDS: Diclofenac Sodium Delayed Release 50 mg EC Tab PO SCH ×2 (09:59→17:57)
--- NOTE | 2017-12-07 12:46 | CP.PCM.PN ---
Subjective - Date & Time of Evaluation Date of Evaluation: 12/07/17 Time of Evaluation: 10:00 - Subjective Subjective: clinically same Objective - Vital Signs/Intake and Output Vital Signs (last 24 hours): Temp Pulse Resp BP Pulse Ox 97.6 F 72 20 139/79 96 12/07/17 07:00 12/07/17 07:00 12/07/17 07:00 12/07/17 07:00 12/07/17 07:00 Intake and Output: 12/07/17 12/07/17 06:59 18:59 Intake Total 250 Balance 250 - Medications Medications: Current Medications Aspirin (Aspirin) 325 mg PO DAILY [facility] Last Admin: 12/07/17 09:59 Dose: 325 mg Clonazepam (Klonopin) 2 mg PO TID [facility] Last Admin: 12/07/17 09:58 Dose: 2 mg Diclofenac Sodium (Voltaren) 50 mg PO BID [facility] Last Admin: 12/07/17 09:59 Dose: 50 mg Duloxetine HCl (Cymbalta) 30 mg PO DAILY [facility] Last Admin: 12/07/17 09:58 Dose: 30 mg Escitalopram Oxalate (Lexapro) 20 mg PO DAILY [facility] Last Admin: 12/07/17 09:58 Dose: 20 mg Morphine Sulfate (Morphine) 4 mg IVP Q8 PRN PRN Reason: Pain, severe (8-10) Oxycodone HCl (Oxycodone Immediate Release Tab) 15 mg PO Q3H PRN PRN Reason: Pain, moderate (4-7) Last Admin: 12/07/17 09:59 Dose: 15 mg Pantoprazole Sodium (Protonix Ec Tab) 40 mg PO DAILY [facility] Last Admin: 12/07/17 09:59 Dose: 40 mg Risperidone (Risperdal Tab) 2 mg PO BID [facility] Last Admin: 12/07/17 10:03 Dose: 2 mg Tolterodine Tartrate (Detrol La) 4 mg PO DAILY [facility] Last Admin: 12/07/17 09:58 Dose: 4 mg Zolpidem Tartrate (Ambien) 5 mg PO HS [facility] Last Admin: 12/06/17 21:54 Dose: 5 mg - Labs Labs: 12/05/17 11:32 12/05/17 11:32
--- NOTE | 2017-12-07 16:25 | PCM.PSYCH ---
Initial Psychiatric Evaluation - Initial Psychiatric Evaluation Chief Complaint (in patient's own words): PT WAS ADMITTED FOR SUBSTERNAL CHEST PAIN Patient's Reaction to Hospitalization: PT IS COMFORTABLE IN THE HOSPITALl History of Present Illness and Precipitating Events: PT IS A 46 YEAR OLD SINGLE DOMICILED FEMALE WHO WAS HOSPITALIZED FOR SUBSTERNAL CHEST PAIN AND NUMBNESS IN LEFT ARM. PT ALSO HAS STAGE 4 CANCER IN HER LIVER, COLON AND LUNGS AND IS RECEIVING CHEMOTHERAPY. PT HAS HAD ONE PSYCHIATRIC HOSPITALIZATION AT [facility] SEVERAL YEARS AGO. PT WAS HOSPITALIZED BECAUSE SHE OVEDPSED ON A BOTTLE OF DARVOCET. PT WAS DIAGNOSED WITH BIPOLAR DEPRESSION AND GENERALIZED ANXIETY DISORDER. PT IS PRESCRIBRFCYMBALTA, KLONOPIN, LEXAPRO AND RISPERDAL. THESE MEDS ARE PRESCRIBED BY . 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 [employer] PT HAS A BROTHER AND A SISTER BOTH OLDER THAN THE PT Current Medications: Active Medications Generic Name Dose Route Start Last Admin Trade Name Freq PRN Reason Stop Dose Admin Aspirin 325 mg 12/05/17 17:15 12/07/17 09:59 Aspirin PO 325 mg DAILY BAK[facility]I Administration Clonazepam 2 mg 12/05/17 18:00 12/07/17 14:10 Klonopin PO 2 mg TID BAKARI Administration Diclofenac Sodium 50 mg 12/05/17 18:00 12/07/17 09:59 Voltaren PO 50 mg BID BAK[facility]I Administration Duloxetine HCl 30 mg 12/05/17 17:45 12/07/17 09:58 Cymbalta PO 30 mg DAILY BAK[facility]I Administration Escitalopram Oxalate 20 mg 12/05/17 17:15 12/07/17 09:58 Lexapro PO 20 mg DAILY [facility]I Administration Morphine Sulfate 4 mg 12/05/17 17:32 Morphine IVP Q8 PRN Pain, severe (8-10) Oxycodone HCl 15 mg 12/05/17 17:10 12/07/17 09:59 Oxycodone Immediate Release Tab PO 15 mg Q3H PRN Administration Pain, moderate (4-7) Pantoprazole Sodium 40 mg 12/07/17 10:00 12/07/17 09:59 Protonix Ec Tab PO 40 mg DAILY [facility] Administration Risperidone 2 mg 12/05/17 18:00 12/07/17 10:03 Risperdal Tab PO 2 mg BID [facility]I Administration Tolterodine Tartrate 4 mg 12/06/17 12:45 12/07/17 09:58 Detrol La PO 4 mg DAILY B[facility]I Administration Zolpidem Tartrate 5 mg 12/05/17 22:00 12/06/17 21:54 Ambien PO 5 mg HS BAKARI Administration Past Psychiatric History - Past Psychiatric History Prior Professional Help: SEE HPI Pertinent Medical Hx (Current Medical&Sleep Prob, Allergies): Allergies Allergy/AdvReac Type Severity Reaction Status Date / Time No Known Allergies Allergy Verified 12/04/17 13:33 Clonazepam [Klonopin] 2 mg PO TID 02/28/16 oxyCODONE [oxyCODONE Immediate Release Tab] 15 mg PO Q3H PRN 02/28/16 risperiDONE [RisperDAL Tab] 2 mg PO BID 05/31/16 Diclofenac Sodium 50 mg PO BID 09/18/17 Escitalopram [Lexapro] 20 mg PO DAILY #30 tab 09/24/17 Solifenacin Succinate [Vesicare] 5 mg PO DAILY 11/07/17 DULoxetine [Cymbalta] 30 mg PO DAILY 12/05/17 Zolpidem [Ambien] 5 mg PO HS 12/05/17 Review of Systems - EENT Eyes: UNREMARKABLE Nose/Mouth/Throat: UNREMARKABLE - Breasts Breasts: UNREMARKABLE - Cardiovascular Cardiovascular: Chest Pain - Respiratory Respiratory: UNREMARKABLE - Gastrointestinal Gastrointestinal: Abdominal Pain - Genitourinary Genitourinary: UNREMARKABLE - Reproductive: Female Reproductive:Female: UNREMARKABLE - Menstruation Menstruation: UNREMARKABLE - Musculoskeletal Musculoskeletal: Myalgias - Integumentary Integumentary: UNREMARKABLE - Neurological Neurological: UNREMARKABLE - Psychiatric Psychiatric: Anxiety, Depression, Difficulty Concentrating, Mood Swings - Endocrine Endocrine: UNREMARKABLE - Hematologic/Lymphatic Hematologic: Other (CANCER) Mental Status Examination - Personal Presentation Personal Presentation: Looks older than stated age, Dressed inappropriate to season - Affect Affect: Constricted - Motor Activity Motor Activity: Calm - Reliability in Providing Information Reliability in Providing Information: Good - Speech Speech: Organized - Mood Mood: Depressed - Formal Thought Process Formal Thought Process: No Impairment - Obsessions/Compulsions Obsessions: None Compulsions: None - Cognitive Functions Orientation: Person, Place, Situation, Time Sensorium: Alert Attention/Concentration: Attentive Abstract Thinking: As evidence by abstract perception of proverbs Estimate of Intelligence: Average Judgement: Intact, as evidence by: Good judgement Memory: Recent intact, as evidence by: Ability to recall events of the day, Remote intact, as evidenced by: Abilit to recall sig. 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
--- NOTE | 2017-12-08 01:15 | CP.PCM.CON ---
History of Present Illness - History of Present Illness History of Present Illness: CC chest pain HPI 46 year old female, whose PMHx includes stage 4 colon cancer, anxiety, and hypertension, presents to the ED for evaluation of left-sided chest pain which began yesterday. Patient states the pain radiates into her left arm and is worse with movement. Symptoms began while she was sitting at a bar, drinking a club a nd cranberry drink. Patient has experienced similar symptoms in the past; she was evaluated in the ED yesterday and was discharged home. Patient states the pain has persisted, prompting her to come in today. She denies nausea, vomiting, extremity numbness/weakness Review of Systems - Cardiovascular Cardiovascular: Chest Pain - Respiratory Respiratory: Dyspnea - Musculoskeletal Musculoskeletal: absent: As Per HPI, Abnormal Gait, Arthralgias, Atrophy, Back Pain, Deformity, Joint Swelling, Limited Range of Motion, Loss of Height, Muscle Cramps, Muscle Weakness, Myalgias, Neck Pain, Numbness, Radiating Pain into Limb, Stiffness, Tingling, Other Past Patient History - Infectious Disease Hx of Infectious Diseases: None - Past Medical History & Family History Past Medical History?: Yes - Past Social History Smoking Status: Never Smoked - CARDIAC Hx Hypertension: Yes - PULMONARY Hx Asthma: Yes - NEUROLOGICAL Hx Neurological Disorder: No - HEENT Hx HEENT Problems: No - RENAL Hx Chronic Kidney Disease: No - ENDOCRINE/METABOLIC Hx Endocrine Disorders: No - HEMATOLOGICAL/ONCOLOGICAL Hx Anemia: Yes - INTEGUMENTARY Hx Dermatological Problems: No - MUSCULOSKELETAL/RHEUMATOLOGICAL Hx Arthritis: Yes Hx Rheumatoid Arthritis: Yes - GASTROINTESTINAL Hx Gastrointestinal Disorders: Yes Hx Bowel Surgery: Yes Other/Comment: COLON CANCER STAGE 4 WITH CHEMOTHERAPY. R side port a cath - GENITOURINARY/GYNECOLOGICAL Hx Genitourinary Disorders: No - PSYCHIATRIC Hx Anxiety: Yes Hx Bipolar Disorder: Yes Hx Depression: Yes Hx Schizophrenia: Yes Hx Substance Use: Yes (hx of cocaine use) - SURGICAL HISTORY Hx Surgeries: Yes (SEE COMMENT) Hx Orthopedic Surgery: Yes (left knee TKR 03/2017) Hx Tubal Ligation: Yes (2005) Hx Vascular Access Device: Yes (RIGHT SUBCLAVIAN 2014) Other/Comment: colon cancer surgery april 2014 to remove tumor, rt side subclavian Port - ANESTHESIA Hx Anesthesia: Yes Hx Anesthesia Reactions: No Hx Malignant Hyperthermia: No Meds Allergies/Adverse Reactions: Allergies Allergy/AdvReac Type Severity Reaction Status Date / Time No Known Allergies Allergy Verified 12/04/17 13:33 - Medications Medications: Current Medications Aspirin (Aspirin) 325 mg PO DAILY [facility] Last Admin: 12/07/17 09:59 Dose: 325 mg Clonazepam (Klonopin) 2 mg PO TID [facility] Last Admin: 12/07/17 17:57 Dose: 2 mg Diclofenac Sodium (Voltaren) 50 mg PO BID [facility] Last Admin: 12/07/17 17:57 Dose: 50 mg Duloxetine HCl (Cymbalta) 30 mg PO DAILY [facility] Last Admin: 12/07/17 09:58 Dose: 30 mg Escitalopram Oxalate (Lexapro) 20 mg PO DAILY [facility] Last Admin: 12/07/17 09:58 Dose: 20 mg Morphine Sulfate (Morphine) 4 mg IVP Q8 PRN PRN Reason: Pain, severe (8-10) Last Admin: 12/07/17 17:57 Dose: 4 mg Oxycodone HCl (Oxycodone Immediate Release Tab) 15 mg PO Q3H PRN PRN Reason: Pain, moderate (4-7) Last Admin: 12/07/17 21:36 Dose: 15 mg Pantoprazole Sodium (Protonix Ec Tab) 40 mg PO DAILY [facility] Last Admin: 12/07/17 09:59 Dose: 40 mg Risperidone (Risperdal Tab) 2 mg PO BID [facility] Last Admin: 12/07/17 17:57 Dose: 2 mg Tolterodine Tartrate (Detrol La) 4 mg PO DAILY [facility] Last Admin: 12/07/17 09:58 Dose: 4 mg Zolpidem Tartrate (Ambien) 5 mg PO [facility] Last Admin: 12/07/17 21:36 Dose: 5 mg Physical Exam - Constitutional Appears: Non-toxic - Head Exam Head Exam: NORMAL INSPECTION - Eye Exam Eye Exam: absent: Scleral icterus - Neck Exam Neck exam: Positive for: Full Rom - Respiratory Exam Respiratory Exam: NORMAL BREATHING PATTERN - Cardiovascular Exam Cardiovascular Exam: REGULAR RHYTHM - GI/Abdominal Exam GI & Abdominal Exam: Soft - Extremities Exam Extremities exam: Negative for: pedal edema - Neurological Exam Neurological exam: Alert, Oriented x3 Results - Vital Signs Recent Vital Signs: Last Vital Signs Temp 98 F 12/07/17 15:40 Pulse 80 12/07/17 16:00 Resp 20 12/07/17 15:40 BP 149/83 10/13/18 15:40 Pulse Ox 97 12/07/17 15:40 - Labs Result Diagrams: 12/05/17 11:32 12/05/17 11:32 Assessment & Plan - Assessment and Plan (Free Text) Assessment: Chest pain-r/o CAD Hx of Colon ca Stage 4 Plan: ECHO Lexiscan stress test - Date & Time Date: 12/07/17 Time: 09:45
[2017-12-08] MEDS: oxyCODONE 5 mg Immediate Release Tab PO PRN ×4 (02:23→19:46)
[2017-12-08] MEDS: Pantoprazole 40 mg EC Tab PO SCH (10:23)
[2017-12-08] MEDS: Diclofenac Sodium Delayed Release 50 mg EC Tab PO SCH ×2 (10:23→18:13)
[2017-12-08] MEDS: Tolterodine 4 mg ER Cap PO SCH (10:24)
--- NOTE | 2017-12-08 16:16 | CP.PCM.PN ---
Subjective - Date & Time of Evaluation Date of Evaluation: 12/08/17 Time of Evaluation: 09:45 - Subjective Subjective: clinically same Objective - Vital Signs/Intake and Output Vital Signs (last 24 hours): Temp Pulse Resp BP Pulse Ox 97.8 F 70 18 115/78 96 12/08/17 15:37 12/08/17 15:37 12/08/17 15:37 12/08/17 15:37 12/08/17 15:37 Intake and Output: 12/08/17 12/08/17 06:59 18:59 Intake Total 240 Balance 240 - Medications Medications: Current Medications Aspirin (Aspirin) 325 mg PO DAILY [facility] Last Admin: 12/08/17 10:24 Dose: 325 mg Clonazepam (Klonopin) 2 mg PO TID [facility] Last Admin: 12/08/17 13:36 Dose: 2 mg Diclofenac Sodium (Voltaren) 50 mg PO BID [facility] Last Admin: 12/08/17 10:23 Dose: 50 mg Duloxetine HCl (Cymbalta) 30 mg PO DAILY [facility] Last Admin: 12/08/17 10:23 Dose: 30 mg Escitalopram Oxalate (Lexapro) 20 mg PO DAILY [facility] Last Admin: 12/08/17 10:24 Dose: 20 mg Morphine Sulfate (Morphine) 4 mg IVP Q8 PRN PRN Reason: Pain, severe (8-10) Last Admin: 12/07/17 17:57 Dose: 4 mg Oxycodone HCl (Oxycodone Immediate Release Tab) 15 mg PO Q3H PRN PRN Reason: Pain, moderate (4-7) Last Admin: 12/08/17 14:44 Dose: 15 mg Pantoprazole Sodium (Protonix Ec Tab) 40 mg PO DAILY [facility] Last Admin: 12/08/17 10:23 Dose: 40 mg Risperidone (Risperdal Tab) 2 mg PO BID [facility] Last Admin: 12/08/17 10:58 Dose: 2 mg Tolterodine Tartrate (Detrol La) 4 mg PO DAILY [facility] Last Admin: 12/08/17 10:24 Dose: 4 mg Zolpidem Tartrate (Ambien) 5 mg PO HS [facility] Last Admin: 12/07/17 21:36 Dose: 5 mg - Labs Labs: 12/05/17 11:32 12/05/17 11:32
[2017-12-09] MEDS: oxyCODONE 5 mg Immediate Release Tab PO PRN ×4 (00:53→19:56)
--- NOTE | 2017-12-09 00:55 | CP.PCM.PN ---
Subjective - Date & Time of Evaluation Date of Evaluation: 12/08/17 Time of Evaluation: 10:00 - Subjective Subjective: Still w/ atypical/typical chest pain no sob Objective - Vital Signs/Intake and Output Vital Signs (last 24 hours): Temp Pulse Resp BP Pulse Ox 97.8 F 71 18 115/78 96 12/08/17 15:37 12/08/17 16:59 12/08/17 15:37 12/08/17 15:37 12/08/17 15:37 Intake and Output: 12/08/17 12/09/17 18:59 06:59 Intake Total 800 Output Total 5 Balance 795 - Medications Medications: Current Medications Aspirin (Aspirin) 325 mg PO DAILY [facility] Last Admin: 12/08/17 10:24 Dose: 325 mg Clonazepam (Klonopin) 2 mg PO TID [facility] Last Admin: 12/08/17 18:13 Dose: 2 mg Diclofenac Sodium (Voltaren) 50 mg PO BID [facility] Last Admin: 12/08/17 18:13 Dose: 50 mg Duloxetine HCl (Cymbalta) 30 mg PO DAILY [facility] Last Admin: 12/08/17 10:23 Dose: 30 mg Escitalopram Oxalate (Lexapro) 20 mg PO DAILY [facility] Last Admin: 12/08/17 10:24 Dose: 20 mg Morphine Sulfate (Morphine) 4 mg IVP Q8 PRN PRN Reason: Pain, severe (8-10) Last Admin: 12/07/17 17:57 Dose: 4 mg Oxycodone HCl (Oxycodone Immediate Release Tab) 15 mg PO Q3H PRN PRN Reason: Pain, moderate (4-7) Last Admin: 12/08/17 19:46 Dose: 15 mg Pantoprazole Sodium (Protonix Ec Tab) 40 mg PO DAILY [facility] Last Admin: 12/08/17 10:23 Dose: 40 mg Risperidone (Risperdal Tab) 2 mg PO BID [facility] Last Admin: 12/08/17 18:13 Dose: 2 mg Tolterodine Tartrate (Detrol La) 4 mg PO DAILY [facility] Last Admin: 12/08/17 10:24 Dose: 4 mg Zolpidem Tartrate (Ambien) 5 mg PO HS REPLACED [facility] Last Admin: 12/08/17 22:17 Dose: 5 mg - Labs Labs: 12/05/17 11:32 12/05/17 11:32 - Constitutional Appears: Non-toxic - Head Exam Head Exam: NORMAL INSPECTION - Eye Exam Eye Exam: absent: Scleral icterus - ENT Exam ENT Exam: Mucous Membranes Moist - Neck Exam Neck Exam: Full ROM - Respiratory Exam Respiratory Exam: NORMAL BREATHING PATTERN - Cardiovascular Exam Cardiovascular Exam: REGULAR RHYTHM - GI/Abdominal Exam GI & Abdominal Exam: Soft - Extremities Exam Extremities Exam: absent: Calf Tenderness, Pedal Edema - Neurological Exam Neurological Exam: Alert, Oriented x3 Assessment and Plan - Assessment and Plan (Free Text) Assessment: Chest pain-r/o CAD Bipolar Schizophrenia Hx of rheumatoid arthritis Asthma Hx of Colon ca Plan: Lexiscan in AM Cont meds
[2017-12-09 01:20] VITALS: RESP 20
[2017-12-09] MEDS ORDERED: Caffeine Citrated **INJ** 20 MG/ML IV ONE (07:54)
--- NOTE | 2017-12-09 08:45 | CP.PCM.PN ---
Subjective - Date & Time of Evaluation Date of Evaluation: 12/09/17 Time of Evaluation: 08:45 - Subjective Subjective: PGY-[address] Dionisio Harris's Service Patient seen and examined at bedside. Per nursing no acute events occurred overnight .Patient still reports chest with radiation to left arm. Patient denies any fevers, chills, headaches, syncopal episodes, changes in vision, or any other complaints. Objective - Vital Signs/Intake and Output Vital Signs (last 24 hours): Temp Pulse Resp BP Pulse Ox 97.6 F 75 20 112/73 95 12/09/17 07:00 12/09/17 07:00 12/09/17 07:00 12/09/17 07:00 12/09/17 07:00 Intake and Output: 12/09/17 12/09/17 06:59 18:59 Intake Total 1040 Output Total 5 Balance 1035 - Medications Medications: Current Medications Aspirin (Aspirin) 325 mg PO DAILY [facility] Last Admin: 12/08/17 10:24 Dose: 325 mg Clonazepam (Klonopin) 2 mg PO TID [facility] Last Admin: 12/08/17 18:13 Dose: 2 mg Diclofenac Sodium (Voltaren) 50 mg PO BID [facility] Last Admin: 12/08/17 18:13 Dose: 50 mg Duloxetine HCl (Cymbalta) 30 mg PO DAILY [facility] Last Admin: 12/08/17 10:23 Dose: 30 mg Escitalopram Oxalate (Lexapro) 20 mg PO DAILY [facility] Last Admin: 12/08/17 10:24 Dose: 20 mg Morphine Sulfate (Morphine) 4 mg IVP Q8 PRN PRN Reason: Pain, severe (8-10) Last Admin: 12/07/17 17:57 Dose: 4 mg Oxycodone HCl (Oxycodone Immediate Release Tab) 15 mg PO Q3H PRN PRN Reason: Pain, moderate (4-7) Last Admin: 12/09/17 06:23 Dose: 15 mg Pantoprazole Sodium (Protonix Ec Tab) 40 mg PO DAILY [facility] Last Admin: 12/08/17 10:23 Dose: 40 mg Risperidone (Risperdal Tab) 2 mg PO BID [facility] Last Admin: 12/08/17 18:13 Dose: 2 mg Tolterodine Tartrate (Detrol La) 4 mg PO DAILY [facility] Last Admin: 12/08/17 10:24 Dose: 4 mg Zolpidem Tartrate (Ambien) 5 mg PO HS [facility] Last Admin: 12/08/17 22:17 Dose: 5 mg - Labs Labs: 12/05/17 11:32 12/05/17 11:32 - Head Exam Head Exam: ATRAUMATIC, NORMAL INSPECTION - Eye Exam Eye Exam: EOMI, Normal appearance, PERRL Pupil Exam: NORMAL ACCOMODATION, PERRL. absent: Irregular, Unequal - ENT Exam ENT Exam: Mucous Membranes Moist, Normal Oropharynx - Respiratory Exam Respiratory Exam: Clear to Ausculation Bilateral, NORMAL BREATHING PATTERN. absent: Wheezes, Respiratory Distress - Cardiovascular Exam Cardiovascular Exam: REGULAR RHYTHM, +S1, +S2 - GI/Abdominal Exam GI & Abdominal Exam: Soft, Normal Bowel Sounds. absent: Hyperactive Bowel Sounds - Extremities Exam Extremities Exam: Full ROM, Normal Inspection. absent: Pedal Edema - Back Exam Back Exam: NORMAL INSPECTION. absent: CVA tenderness (R), paraspinal tenderness - Neurological Exam Neurological Exam: Alert, Awake, CN II-XII Intact, Oriented x3 - Psychiatric Exam Psychiatric exam: Normal Affect, Normal Mood - Skin Skin Exam: Dry, Intact Assessment and Plan - Assessment and Plan (Free Text) Plan: Chest pain r/o ACS Cardiology consulted. Help appreciated. EKG: NSR. Negative ST-T changes Troponins (-)x3 Medications: Aspirin 325mg PO Daily Morphine 4mg IVP q8 PRN Urinary incontinence Tolterodine 4mg PO Daily Cardiology consulted Dr. Thompson. :Lexiscan- Normal exam Metastatic colon cancer Stage IV; mets to liver and lung Dr. Heath, Hem/Onc * outpatient chemo * thrombocytopenia secondary to chemo Lung biopsy (on 08/19/17): Metastatic adenocarcinoma. Consistent w/ primary colon source Continue home medications: * Oxycodone 15mg PO Q3H PRN for pain Hx of Anemia of Chronic Disease Hgb stable Monitor Bipolar disorder Continue home medication: Risperdal 2mg PO BID Depression Continue home medication: Cymbalta 30mg PO Daily Continue home medication: Lexapro 20mg PO Daily Psychiatry Dr. Maldonado consulted. Help appreciated Anxiety Continue home medication: Klonopin 2mg PO TID Insomnia Continue home medication: Trazodone 50mg PO HS Prophylactic Care Protonix 40mg PO Daily SCDs Dispo: Will f/u for further cardiac results. All management per Dr. Dionisio Harris. Matthew Montes, PGY-2
[2017-12-09] MEDS: Diclofenac Sodium Delayed Release 50 mg EC Tab PO SCH ×2 (10:55→17:15)
[2017-12-09] MEDS: Pantoprazole 40 mg EC Tab PO SCH (10:55)
[2017-12-09] MEDS: Tolterodine 4 mg ER Cap PO SCH (10:56)
--- NOTE | 2017-12-09 17:36 | CP.PCM.PN ---
Subjective - Date & Time of Evaluation Date of Evaluation: 12/09/17 Time of Evaluation: 11:15 - Subjective Subjective: clinically same Objective - Vital Signs/Intake and Output Vital Signs (last 24 hours): Temp Pulse Resp BP Pulse Ox 97.7 F 67 20 138/87 97 12/09/17 15:00 12/09/17 15:00 12/09/17 15:00 12/09/17 15:00 12/09/17 15:00 Intake and Output: 12/09/17 12/09/17 06:59 18:59 Intake Total 1040 Output Total 5 Balance 1035 - Medications Medications: Current Medications Aspirin (Aspirin) 325 mg PO DAILY [facility] Last Admin: 12/09/17 10:55 Dose: 325 mg Clonazepam (Klonopin) 2 mg PO TID [facility] Last Admin: 12/09/17 17:15 Dose: 2 mg Diclofenac Sodium (Voltaren) 50 mg PO BID [facility] Last Admin: 12/09/17 17:15 Dose: 50 mg Duloxetine HCl (Cymbalta) 30 mg PO DAILY [facility] Last Admin: 12/09/17 10:56 Dose: 30 mg Escitalopram Oxalate (Lexapro) 20 mg PO DAILY [facility] Last Admin: 12/09/17 10:56 Dose: 20 mg Morphine Sulfate (Morphine) 4 mg IVP Q8 PRN PRN Reason: Pain, severe (8-10) Last Admin: 12/07/17 17:57 Dose: 4 mg Pantoprazole Sodium (Protonix Ec Tab) 40 mg PO DAILY [facility] Last Admin: 12/09/17 10:55 Dose: 40 mg Risperidone (Risperdal Tab) 2 mg PO BID [facility] Last Admin: 12/09/17 17:15 Dose: 2 mg Tolterodine Tartrate (Detrol La) 4 mg PO DAILY [facility] Last Admin: 12/09/17 10:56 Dose: 4 mg Zolpidem Tartrate (Ambien) 5 mg PO HS [facility] Last Admin: 12/08/17 22:17 Dose: 5 mg - Labs Labs: 12/05/17 11:32 12/05/17 11:32
[2017-12-09] MEDS ORDERED: oxyCODONE 10 mg Immediate Release Tab PO PRN (17:41)
--- NOTE | 2017-12-09 22:14 | CARD ---
APPROVED REPORT Date of service: 12/09/2017 Protocol: PHARMACOLOGICAL STRESSS Test Type: LEXISCAN Test Indications: CHEST PAIN Medications: LIST SCAN Medical History: CHEST PAIN Target HR: 172 bpm Resting ECG: nsr Resting Heart Rate: 86 bpm Resting Blood Pressure: 130/80mmHg submaximum (85%): 146 bpm TEST SUMMARY [id number]. INFUSIONDOSE 100:[id number]/80.0. [id number]/70.0. PROCEDURE Pharmacologic stress testing was performed using 0.4mg per 5ml of regadenoson given intravenously over 7-10 seconds. POST EXERCISE Reason for Termination: Protocol Completed Target HR: No Max HR: 93 bpm 56% of Maximum Predicted HR: 172 bpm Exercise duration: 00:30 min:sec, 0 Stage Exercise capacity: 1.0METs Max Blood Pressure: 154/70mmHg Blood Pressure response to exercise: normal resting BP - appropriate response Heart Rate response to exercise: appropriate Chest Pain: No, none Angina index: 0 Arrhythmia: No, none ST Change: No, none Deviation: 0 mm INTERPRETATION Stress EKG Conclusion: NEGATIVE LEXISCAN STRESS TEST NORMAL BP RESPONSE TO LEXISCAN NUCLEAR STUDIES TO BE READ SEPARATELY EXAM: Myocardial Perfusion STRESS/REST Imaging Protocol The imaging protocol used to acquire images was Stress Tc-99m/rest Tc-99m 1 day Stress Spect myocardial perfusion imaging was performed in supine position 45 minutes following the injection of 12.5 mCi of Tc-99 Myoview. Gated Rest Spect was performed 55 minutes after intravenous 32.5 mci Tc-99 Myoview injection. The images were gated to evaluate regional wall motion and calculate ventricular ejection fraction.Images were reconstructed using backfilter projection method in short horizontal and verticle long axis. Spect slices were generated. RESTING DATA EDV63.98yyKN9.90L/min ESV27.00mlMyocardial Mass99.00g Av. Heart Rate83.00bpm EF57.00% STRESS DATA EDV74.12ceUB9.40L/min ESV25.00mlMyocardial Ijhl968.00g EF66.00% Regional WT score at stress:0.00 Regional WM score at stress:0.00 Summed WT score at stress:2.00 Av. Heart Rate90.00bpmSummed WM score at stress:4.00 LV Perf. Quant 17 Seg. SSS0.00 17 Seg. SRS2.00 17 Seg. SDS0.00 Stress Defect Extent (% LAD)0.00Rest Defect Extent (% LAD)5.60Rev. Defect Extent (% LAD)0.00 Stress Defect Extent (% LCX)0.00Rest Defect Extent (% LCX)8.80Rev. Defect Extent (% LCX)0.00 Stress Defect Extent (% RCA)0.00Rest Defect Extent (% RCA)0.00Rev. Defect Extent (% RCA)0.00 Stress Defect Extent (% DIRK)0.00Rest Defect Extent (% DIRK)5.00Rev. Defect Extent (% DIRK)0.00 Other Information Quality:Good IMPRESSION Normal Myocardial Perfusion exercise stress study Left Ventricle LV Function:Left ventricle systolic function is normal. The Ejection Fraction is >55%. Metabolism/Perfusion There are no perfusion/metabolism defects. Conclusion 1. Normal Lexiscan Nuclear Stress Test. Normal EF
[2017-12-10] MEDS: oxyCODONE 5 mg Immediate Release Tab PO PRN ×2 (00:20→03:32)
[2017-12-10 08:01] VITALS: BP 117/73; PULSE 78; TEMP 97.6; O2SAT 100
--- NOTE | 2017-12-10 08:23 | CP.PCM.PN ---
Subjective - Date & Time of Evaluation Date of Evaluation: 12/10/17 Time of Evaluation: 08:22 - Subjective Subjective: PGY-[address] Dionisio Harris's Service Patient seen and examined at bedside. Per nursing no acute events occurred overnight .Patient still reports chest with radiation to left arm. Patient denies any fevers, chills, headaches, syncopal episodes, changes in vision, or any other complaints. Objective - Vital Signs/Intake and Output Vital Signs (last 24 hours): Temp Pulse Resp BP Pulse Ox 97.6 F 78 20 117/73 100 12/10/17 07:00 12/10/17 07:00 12/10/17 07:00 12/10/17 07:00 12/10/17 07:00 Intake and Output: 12/10/17 12/10/17 06:59 18:59 Intake Total 500 Balance 500 - Medications Medications: Current Medications Aspirin (Aspirin) 325 mg PO DAILY [facility] Last Admin: 12/09/17 10:55 Dose: 325 mg Clonazepam (Klonopin) 2 mg PO TID [facility] Last Admin: 12/09/17 17:15 Dose: 2 mg Diclofenac Sodium (Voltaren) 50 mg PO BID [facility] Last Admin: 12/09/17 17:15 Dose: 50 mg Duloxetine HCl (Cymbalta) 30 mg PO DAILY [facility] Last Admin: 12/09/17 10:56 Dose: 30 mg Escitalopram Oxalate (Lexapro) 20 mg PO DAILY [facility] Last Admin: 12/09/17 10:56 Dose: 20 mg Oxycodone HCl (Oxycodone Immediate Release Tab) 15 mg PO Q6 PRN PRN Reason: Pain, moderate (4-7) Last Admin: 12/10/17 03:32 Dose: 15 mg Pantoprazole Sodium (Protonix Ec Tab) 40 mg PO DAILY [facility] Last Admin: 12/09/17 10:55 Dose: 40 mg Risperidone (Risperdal Tab) 2 mg PO BID [facility] Last Admin: 12/09/17 17:15 Dose: 2 mg Tolterodine Tartrate (Detrol La) 4 mg PO DAILY [facility] Last Admin: 12/09/17 10:56 Dose: 4 mg Zolpidem Tartrate (Ambien) 5 mg PO HS [facility] Last Admin: 12/09/17 21:31 Dose: 5 mg - Labs Labs: 12/05/17 11:32 12/05/17 11:32 - Head Exam Head Exam: ATRAUMATIC, NORMAL INSPECTION - Eye Exam Eye Exam: EOMI, Normal appearance, PERRL Pupil Exam: NORMAL ACCOMODATION - ENT Exam ENT Exam: Mucous Membranes Moist, Normal Oropharynx - Respiratory Exam Respiratory Exam: Clear to Ausculation Bilateral, NORMAL BREATHING PATTERN. absent: Prolonged Expiratory Phase, Respiratory Distress - Cardiovascular Exam Cardiovascular Exam: REGULAR RHYTHM, RRR, +S1, +S2. absent: Rubs - GI/Abdominal Exam GI & Abdominal Exam: Soft, Normal Bowel Sounds. absent: Hyperactive Bowel Sounds - Neurological Exam Neurological Exam: Alert, Awake, CN II-XII Intact, Oriented x3 - Psychiatric Exam Psychiatric exam: Normal Affect, Normal Mood - Skin Skin Exam: Dry, Intact, Normal Color Assessment and Plan - Assessment and Plan (Free Text) Plan: Plan: Chest pain r/o ACS Cardiology consulted. Help appreciated. EKG: NSR. Negative ST-T changes Troponins (-)x3 Medications: Aspirin 325mg PO Daily Morphine 4mg IVP q8 PRN Urinary incontinence Tolterodine 4mg PO Daily Cardiology consulted Dr. Thompson. :Lexiscan- Normal exam Metastatic colon cancer Stage IV; mets to liver and lung Dr. Heath, Hem/Onc * outpatient chemo * thrombocytopenia secondary to chemo Lung biopsy (on 08/19/17): Metastatic adenocarcinoma. Consistent w/ primary colon source Continue home medications: * Oxycodone 15mg PO Q3H PRN for pain Hx of Anemia of Chronic Disease Hgb stable Monitor Bipolar disorder Continue home medication: Risperdal 2mg PO BID Depression Continue home medication: Cymbalta 30mg PO Daily Continue home medication: Lexapro 20mg PO Daily Psychiatry Dr. Maldonado consulted. Help appreciated Anxiety Continue home medication: Klonopin 2mg PO TID Insomnia Continue home medication: Trazodone 50mg PO HS Prophylactic Care Protonix 40mg PO Daily SCDs Dispo: Patient medically stable and discharged home. All management per Dr. Dionisio Harris. Matthew Montes, PGY-2 Discharge Instructions: 1.Follow up with PMD within one week of discharge. 2.Return to hospital for any new worsening symptoms. Patient states she has medications at home and doesn't need refills.
[2017-12-10] MEDS: Tolterodine 4 mg ER Cap PO SCH (10:24)
[2017-12-10] MEDS: Pantoprazole 40 mg EC Tab PO SCH (10:24)
[2017-12-10] MEDS: Diclofenac Sodium Delayed Release 50 mg EC Tab PO SCH (10:25)
--- NOTE | 2017-12-11 01:03 | CP.PCM.PN ---
Subjective - Date & Time of Evaluation Date of Evaluation: 12/10/17 Time of Evaluation: 08:00 - Subjective Subjective: denies chest pain no sob Physical Examination - Constitutional Appears: Non-toxic - Head Exam Head Exam: NORMAL INSPECTION - Eye Exam Eye Exam: absent: Scleral icterus - ENT Exam ENT Exam: Mucous Membranes Moist - Neck Exam Neck Exam: Full ROM - Respiratory Exam Respiratory Exam: NORMAL BREATHING PATTERN - Cardiovascular Exam Cardiovascular Exam: REGULAR RHYTHM - GI/Abdominal Exam GI & Abdominal Exam: Soft - Extremities Exam Extremities Exam: absent: Calf Tenderness, Pedal Edema - Neurological Exam Neurological Exam: Alert, Oriented x3 Assessment and Plan - Assessment and Plan (Free Text) Assessment: Chest pain-r/o CAD Bipolar Schizophrenia Hx of rheumatoid arthritis Asthma Hx of Colon ca Plan: Normal stress test Objective - Vital Signs/Intake and Output Vital Signs (last 24 hours): Temp Pulse Resp BP Pulse Ox 97.6 F 78 20 117/73 100 12/10/17 07:00 12/10/17 07:00 12/10/17 07:00 12/10/17 07:00 12/10/17 07:00 - Labs Labs: 12/05/17 11:32 12/05/17 11:32
== END 2017-12-10 13:54 | disposition home or self-care (01) | DRG 313 ==
LOC: C.ER 09:41 → C.9E 11:14 → C.5S 19:15 → OBSVTOIN 12-08 19:32
PROVIDERS: ADMIT Internal Medicine Nephrology; ATTEND Internal Medicine Nephrology
DX: R07.89 Other chest pain (principal); C78.7 Secondary malignant neoplasm of liver and intrahepatic bile duct; F31.30 Bipolar disorder, current episode depressed, mild or moderate severity, unspecified; C78.00 Secondary malignant neoplasm of unspecified lung; F41.1 Generalized anxiety disorder; I10 Essential (primary) hypertension; J45.909 Unspecified asthma, uncomplicated; Z85.038 Personal history of other malignant neoplasm of large intestine; M06.9 Rheumatoid arthritis, unspecified; F20.9 Schizophrenia, unspecified; G47.00 Insomnia, unspecified

== ENCOUNTER 2017-12-19 11:01 | Emergency (ER) | payer MEDICARE ==
[2017-12-19 11:02] VITALS: BMI 38.8
--- NOTE | 2017-12-19 11:35 | C.PDOC ---
History Of Present Illness 47 y/o female, w/PMhx of colon cancer, presents to the ER complaining of chronic pain to the left side of body on/off for the past 1 year. Patient states that she is taking chronic pain medications at home. Patient reports that she is currently undergoing chemotherapy for stage 4 colon cancer. Denies having fever, cough, SOB, nausea, vomiting,and constipation. Chief Complaint (Nursing): Pain, Chronic History Per: Patient History/Exam Limitations: no limitations Onset/Duration Of Symptoms: Days Current Symptoms Are (Timing): Still Present Severity: Moderate Past Medical History Reviewed: Historical Data, Nursing Documentation, Vital Signs Vital Signs: Last Vital Signs Temp 97.4 F L 12/19/17 11:14 Pulse 95 H 12/19/17 11:14 Resp 14 12/19/17 11:14 BP 148/80 12/19/17 11:14 Pulse Ox 98 12/19/17 11:14 - Medical History PMH: Anemia, Anxiety, Arthritis, Asthma, Back Problems, Bipolar Disorder, Depression, HTN, Malignancy (Colon), Rheumatoid Arthritis, Schizophrenia Denies: Chronic Kidney Disease Other Surgeries: Hx of surgeries - [facility] Procedures CLOSED ENDOSCOPIC BIOPSY OF LARGE INTESTINE (05/23/14) COLONOSCOPY (08/12/14) DX ULTRASOUND-ABDOMEN (05/23/14) INSERTION OF TOTALLY IMPLANTABLE VASC ACCESS DEVIC (05/23/14) LAPAROSCOP LYSIS-PERITONEAL ADHES (05/23/14) LAPAROSCOPIC SIGMOIDECTOMY (05/23/14) OTHER ENDOSCOPY OF SM INTEST (05/23/14) PACKED CELL TRANSFUSION (05/23/14) PERCUTAN NEEDLE BX OF LIVER (05/23/14) REMOVAL OF VAD FROM TRUNK SUBCU/FASCIA, PERC APPROACH (03/16/15) Family History: States: No Known Family Hx - Social History Hx Tobacco Use: No Hx Alcohol Use: No Hx Substance Use: No - Immunization History Hx Tetanus Toxoid Vaccination: Yes Hx Influenza Vaccination: Yes Hx Pneumococcal Vaccination: Yes Review Of Systems Except As Marked, All Systems Reviewed And Found Negative. Constitutional: Positive for: Other (chronic pain to left side of body). Negative for: Fever, Chills Cardiovascular: Negative for: Chest Pain Respiratory: Negative for: Cough, Shortness of Breath Gastrointestinal: Negative for: Nausea, Vomiting, Constipation Physical Exam - Physical Exam Appears: Non-toxic, No Acute Distress Skin: Normal Color, Warm, Dry Head: Atraumatic, Normacephalic Eye(s): bilateral: Normal Inspection Nose: Normal Oral Mucosa: Moist Neck: Supple Chest: Symmetrical Cardiovascular: Rhythm Regular Respiratory: Normal Breath Sounds, No Rales, No Rhonchi, No Wheezing Gastrointestinal/Abdominal: Normal Exam, Soft, No Tenderness, No Guarding, No Rebound Extremity: Normal ROM, No Tenderness, No Swelling Neurological/Psych: Oriented x3, Normal Speech ED Course And Treatment - Laboratory Results Result Diagrams: 12/19/17 11:58 12/19/17 11:58 ECG: Interpreted By Me, Viewed By Me ECG Rhythm: Sinus Rhythm Interpretation Of ECG: NSR with left axis deviation Rate From EC O2 Sat by Pulse Oximetry: 98 (RA) Pulse Ox Interpretation: Normal Medical Decision Making Medical Decision Making: Plan: --Labs --EKG --CXR Disposition - Disposition Referrals: Rosaura Harris MD [Staff Provider] - Disposition: HOME/ ROUTINE Disposition Time: 12:50 Condition: GOOD Additional Instructions: NANCY BIRD, thank you for letting us take care of you today. Your provider was Tamir Muhammad DO and you were treated for BODY PAIN. The emergency medical care you received today was directed at your acute symptoms. If you were prescribed any medication, please fill it and take as directed. It may take several days for your symptoms to resolve. Return to the Emergency Department if your symptoms worsen, do not improve, or if you have any other problems. Please contact your doctor or call one of the physicians/clinics you have been referred to that are listed on the Patient Visit Information form that is i ncluded in your discharge packet. Bring any paperwork you were given at discharge with you along with any medications you are taking to your follow up visit. Our treatment cannot replace ongoing medical care by a primary care provider outside of the emergency department. Thank you for allowing the [facility] team to be part of your care today. Follow up with your primary care doctor in 2-3 days for re-evaluation and further management. Follow up with your oncologist as scheduled for your next treatment. Instructions: Chronic Pain Forms: [employer] (Persian) - Clinical Impression Clinical Impression: Chronic pain - Scribe Statement The provider has reviewed the documentation as recorded by the Gloria Jennings Provider Attestation: All medical record entries made by the Scribe were at my direction and person ally dictated by me. I have reviewed the chart and agree that the record accurately reflects my personal performance of the history, physical exam, medical decision making, and the department course for this patient. I have also personally directed, reviewed, and agree with the discharge instructions and disposition.
[2017-12-19 12:09] LABS: HEMOGLOBIN 11.2 g/dL (11.0-16.0)
[2017-12-19 12:13] LABS: BASO % 0.2 % (0.0-2.0); EOS % 0.3 % (0.0-4.0); LYMPH # 0.9 K/uL (1.0-4.3); LYMPH % 15.4 % (20.0-40.0); MEAN CELL VOLUME 80.1 fL (81.0-99.0); MEAN CORPUSCULAR HGB CONC 33.7 g/dL (33.0-37.0); MEAN PLATELET VOLUME 8.3 fL (7.2-11.7); MONO # 0.2 K/uL (0.0-0.8); MONO % 4.1 % (0.0-10.0); NEUT # 4.8 K/uL (1.8-7.0); RBC 4.14 Mil/uL (3.80-5.20); RED CELL DISTRIBUTION WIDTH 18.5 % (11.5-14.5); WHITE BLOOD COUNT 5.9 K/uL (4.8-10.8)
--- NOTE | 2017-12-19 12:14 | RAD ---
Date of service: 12/19/2017 PROCEDURE: CHEST RADIOGRAPH, 1 VIEW HISTORY: chest pain COMPARISON: 12/04/2017 FINDINGS: LUNGS: Clear. PLEURA: No pneumothorax or pleural fluid seen. CARDIOVASCULAR: Normal. OSSEOUS STRUCTURES: No significant abnormalities. VISUALIZED UPPER ABDOMEN: Normal. OTHER FINDINGS: None. IMPRESSION: No active disease.
[2017-12-19 12:55] LABS: ALBUMIN 3.8 g/dL (3.5-5.0)
[2017-12-19 13:01] LABS: ALT/SGPT 22 U/L (9-52); AST/SGOT 19 U/L (14-36); BLOOD UREA NITROGEN 7 mg/dL (7-17); CALCIUM 8.9 mg/dl (8.6-10.4); GFR NON-AFRICAN AMERICAN > 60
[2017-12-19 13:02] LABS: ALB/GLOB RATIO 1.3 (1.0-2.1)
[2017-12-19 13:28] VITALS: BP 151/94; PULSE 89; RESP 18; TEMP 97.8
[2017-12-19 18:32] VITALS: O2SAT 98
--- NOTE | 2017-12-23 18:10 | CARD ---
APPROVED REPORT Date of service: 12/19/2017 EKG Measurement Heart [id number] <Conclusion> Normal sinus rhythm Poor R wave progression - Probably precordial electrodes misplacement. PLEASE REPEAT Abnormal ECG
== END 2017-12-19 13:32 | disposition home or self-care (01) ==
LOC: C.ER 11:01
DX: G89.29 Other chronic pain (principal)

== ENCOUNTER 2017-12-21 11:08 | Emergency (ER) | payer MEDICARE ==
[2017-12-21 11:10] VITALS: BMI 38.8
[2017-12-21 11:20] VITALS: O2SAT 97
--- NOTE | 2017-12-21 12:12 | C.PDOC ---
History Of Present Illness 47 y/o female pt presents to the ED with 1 day history of cough which is associated with yellow sputum and has chest pain with coughing. Denies leg pain, swelling, SOB, numbness, weakness, nausea, vomiting. The patient also complains of a painful abscess to the right butt cheek over the past several weeks. Patient reports that it has drained pus and blood over the past 2 days. Time Seen by Provider: 12/21/17 11:22 Chief Complaint (Nursing): Cough, Cold, Congestion History Per: Patient History/Exam Limitations: no limitations Onset/Duration Of Symptoms: Days (x1) Current Symptoms Are (Timing): Still Present Recent travel outside of the [place]: No Past Medical History Reviewed: Historical Data, Nursing Documentation, Vital Signs Vital Signs: Last Vital Signs Temp 97.7 F 12/21/17 11:14 Pulse 78 12/21/17 11:14 Resp 19 12/21/17 11:14 BP 164/111 H 12/21/17 11:14 Pulse Ox 97 12/21/17 11:14 - Medical History PMH: Anemia, Anxiety, Arthritis, Asthma, Back Problems, Bipolar Disorder, De pression, HTN, Malignancy (Colon), Rheumatoid Arthritis, Schizophrenia - [facility] Procedures CLOSED ENDOSCOPIC BIOPSY OF LARGE INTESTINE (05/23/14) COLONOSCOPY (08/12/14) DX ULTRASOUND-ABDOMEN (05/23/14) INSERTION OF TOTALLY IMPLANTABLE VASC ACCESS DEVIC (05/23/14) LAPAROSCOP LYSIS-PERITONEAL ADHES (05/23/14) LAPAROSCOPIC SIGMOIDECTOMY (05/23/14) OTHER ENDOSCOPY OF SM INTEST (05/23/14) PACKED CELL TRANSFUSION (05/23/14) PERCUTAN NEEDLE BX OF LIVER (05/23/14) REMOVAL OF VAD FROM TRUNK SUBCU/FASCIA, PERC APPROACH (03/16/15) Family History: States: Unknown Family Hx - Social History Hx Tobacco Use: No Hx Alcohol Use: No Hx Substance Use: No - Immunization History Hx Tetanus Toxoid Vaccination: No Hx Influenza Vaccination: Yes Hx Pneumococcal Vaccination: No Review Of Systems Except As Marked, All Systems Reviewed And Found Negative. Cardiovascular: Positive for: Chest Pain (left) Respiratory: Positive for: Cough, Sputum Gastrointestinal: Positive for: Nausea. Negative for: Vomiting Musculoskeletal: Positive for: Arm Pain (left side radiating from chest pain). Negative for: Leg Pain Physical Exam - Physical Exam Appears: Non-toxic, No Acute Distress Skin: Normal Color, Warm, Dry, Other ((+) 2cm area of erythema swelling and drainage to the right buttocks. No fluctuance. ) Head: Normacephalic Eye(s): bilateral: Normal Inspection, PERRL, EOMI Nose: Normal Oral Mucosa: Moist Throat: Normal, No Erythema, No Exudate Neck: Normal ROM, Supple Chest: Symmetrical, No Deformity Cardiovascular: Rhythm Regular, No Friction Rub, No Murmur Respiratory: Normal Breath Sounds, No Rales, No Rhonchi, No Wheezing Gastrointestinal/Abdominal: Soft, No Tenderness Back: Normal Inspection, No CVA Tenderness Extremity: Normal ROM (x4), No Pedal Edema, No Calf Tenderness, Capillary Refill (<2 sec), No Deformity, No Swelling Extremity: Bilateral: Normal Color And Temperature Neurological/Psych: Oriented x3, Normal Speech Gait: Steady ED Course And Treatment O2 Sat by Pulse Oximetry: 97 (RA) Pulse Ox Interpretation: Normal - Radiology CXR: Interpreted by Ct CXR Interpretation: Yes: No Acute Disease. No: Infiltrates Medical Decision Making Medical Decision Making: Plan: -- CXR Patient was instructed to do warm soaks and apply warm compresses to the area of the abscess over the next 2 days and follow up with the general surgeon. Re-eval: Patient is resting comfortably, is no longer having chest pain or shortness of breath. Patient has no risk factors for pulmonary emboli or DVT. Clinical presentation is not suggestive of aortic dissection. Patient is being discharged home and is being advised to follow up with clinic in 1-2 days. Disposition - Disposition Referrals: Shaik Saxena MD [Staff Provider] - Disposition: HOME/ ROUTINE Disposition Time: 13:16 Condition: STABLE Additional Instructions: Follow up with the medical doctor within 1-2 days. Return if worsened. Prescriptions: Cephalexin [Keflex] 500 mg PO BID #14 capsule Loratadine [Claritin] 10 mg PO DAILY #10 tab predniSONE [Prednisone] 10 mg PO BID #10 tab Sulfamethoxazole/Trimethoprim [Bactrim DS 800 mg-160 mg] 1 tab PO BID #14 tab Instructions: Acute Bronchitis Forms: [facility] (Occitan) - POA Present On Arrival: None - Clinical Impression Clinical Impression: Bronchitis, Abscess - PA / CONCRETE SPREADER / Resident Statement / has reviewed & agrees with the documentation as recorded. - Scribe Statement The provider has reviewed the documentation as recorded by the Gloria Wharton Do All medical record entries made by the Gloria were at my direction and personally dictated by me. I have reviewed the chart and agree that the record accurately reflects my personal performance of the history, physical exam, medical decision making, and the department course for this patient. I have also personally directed, reviewed, and agree with the discharge instructions and disposition.
[2017-12-21] MEDS ORDERED: Tmp-Smz 800 mg-160 mg DS Tab PO STA (13:10)
[2017-12-21] MEDS ORDERED: Tmp-Smz 800 mg-160 mg DS Tab ONE (13:19)
[2017-12-21 13:26] VITALS: BP 152/90; PULSE 82; RESP 18; TEMP 98.1
--- NOTE | 2017-12-21 16:11 | RAD ---
Date of service: 12/21/2017 HISTORY: cough, fever COMPARISON: Portable chest 12/19/2017. TECHNIQUE: Chest PA and lateral FINDINGS: LUNGS: No active pulmonary disease. PLEURA: No significant pleural effusion identified. No pneumothorax apparent. CARDIOVASCULAR: No aortic atherosclerotic calcification present. Normal cardiac size. No pulmonary vascular congestion. OSSEOUS STRUCTURES: No significant abnormalities. VISUALIZED UPPER ABDOMEN: Normal. OTHER FINDINGS: Right MediPort unchanged in position. IMPRESSION: No interval acute cardiopulmonary disease appreciated.
--- NOTE | 2017-12-23 12:52 | CARD ---
APPROVED REPORT Date of service: 12/21/2017 EKG Measurement Heart [id number] MA [id number] [id number] <Conclusion> Normal sinus rhythm Normal ECG
== END 2017-12-21 13:39 | disposition home or self-care (01) ==
LOC: C.ER 11:08
DX: J40 Bronchitis, not specified as acute or chronic (principal); L02.31 Cutaneous abscess of buttock

== ENCOUNTER 2018-01-13 12:36 | Inpatient (IN) | payer MEDICARE ==
[2018-01-13 12:37] VITALS: BMI 38.8
[2018-01-13] MEDS ORDERED: Sodium Chloride 0.9% 1,000 ML IV ONE (13:22)
--- NOTE | 2018-01-13 13:22 | C.PDOC ---
History Of Present Illness UGIB SINCE YEST. 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 PS INITIALLY FOOD MIXED W BRB, NOW "NOT RED INITIALLY". +NEW ONSET EPIG PAIN TODAY. HO COLON, LIVER AND LUNG CA. COLONOSCOPY REPORT 2017 REVIEWED. CO PERSIST NAUSEA. HO CHRONIC PAIN, ON OXY EXAM MILD DIST NONTOXIC HEENT MILD PALLOR; MMM ABD +MILD EPIG TEND SOFT NO RG REMAINDER NEG Time Seen by Provider: 01/13/18 12:59 Chief Complaint (Nursing): GI Problem History Per: Patient History/Exam Limitations: no limitations Onset/Duration Of Symptoms: Days Current Symptoms Are (Timing): Still Present Severity: Moderate Past Medical History Reviewed: Historical Data, Nursing Documentation, Vital Signs Vital Signs: Last Vital Signs Temp 97.8 F 01/13/18 12:40 Pulse 85 01/13/18 12:40 Resp 20 01/13/18 12:40 BP 141/90 01/13/18 12:40 Pulse Ox 98 01/13/18 12:40 - Medical History PMH: Anemia, Anxiety, Arthritis, Asthma, Back Problems, Bipolar Disorder, Depression, HTN, Malignancy (Colon), Rheumatoid Arthritis, Schizophrenia Denies: Chronic Kidney Disease Other Surgeries: Hx of surgeries - [facility] Procedures CLOSED ENDOSCOPIC BIOPSY OF LARGE INTESTINE (05/23/14) COLONOSCOPY (08/12/14) DX ULTRASOUND-ABDOMEN (05/23/14) INSERTION OF TOTALLY IMPLANTABLE VASC ACCESS DEVIC (05/23/14) LAPAROSCOP LYSIS-PERITONEAL ADHES (05/23/14) LAPAROSCOPIC SIGMOIDECTOMY (05/23/14) OTHER ENDOSCOPY OF SM INTEST (05/23/14) PACKED CELL TRANSFUSION (05/23/14) PERCUTAN NEEDLE BX OF LIVER (05/23/14) REMOVAL OF VAD FROM TRUNK SUBCU/FASCIA, PERC APPROACH (03/16/15) Family History: States: No Known Family Hx - Social History Hx Tobacco Use: No Hx Alcohol Use: No Hx Substance Use: No - Immunization History Hx Tetanus Toxoid Vaccination: No Hx Influenza Vaccination: Yes Hx Pneumococcal Vaccination: No Review Of Systems Except As Marked, All Systems Reviewed And Found Negative. Constitutional: Negative for: Fever, Chills Gastrointestinal: Positive for: Nausea, Abdominal Pain, Other (upper gastrointestinal bleeding). Negative for: Vomiting, Diarrhea, Constipation Genitourinary: Negative for: Dysuria, Hematuria Physical Exam - Physical Exam Appears: Non-toxic, Other (mild distress) Skin: No Normal Color (mild pallor), Warm, Dry Head: Atraumatic, Normacephalic Eye(s): bilateral: Normal Inspection Nose: Normal Oral Mucosa: Moist Neck: Supple Chest: Symmetrical Cardiovascular: Rhythm Regular Respiratory: Other (NARD) Gastrointestinal/Abdominal: Soft, Tenderness (mild epigastric tenderness), No Guarding, No Rebound Neurological/Psych: Oriented x3, Normal Speech ED Course And Treatment - Laboratory Results Result Diagrams: 01/13/18 13:43 01/13/18 13:43 O2 Sat by Pulse Oximetry: 98 (RA) Pulse Ox Interpretation: Normal - Radiology CXR: Interpreted by Me, Viewed By Me CXR Interpretation: Yes: No Acute Disease, Other (CXR shows right-sided port). No: Cardiomegaly Progress - Re-Evaluation Re-evaluation Note: 01/13/18 14:27 NO RECUR GIB SINCE INITIAL EVAL. VSS APPEARS COMFORTABLE. D/W DR Tila BIANCHI CF PMD WILL ADMIT - Data Reviewed Data Reviewed: Lab, Diagnostic imaging, EKG, Old records - Critical Care Citical Care: Excluding Proc Time Critical Care Time: 90 minutes Medical Decision Making Medical Decision Making: Plan: --Labs --CXR --UA --CT-Abd & Pelv. --IV Fluids --Zofran IV --Sandostatin IV Disposition Counseled Patient/Family Regarding: Studies Performed, Diagnosis - Disposition Disposition: HOSPITALIZED Disposition Time: 14:28 Condition: SERIOUS Forms: [facility] (Burundian) - POA Present On Arrival: None - Clinical Impression Clinical Impression: GI bleed - Scribe Statement The provider has reviewed the documentation as recorded by the Gloria Jennings Provider Attestation: All medical record entries made by the Gloria were at my direction and personally dictated by me. I have reviewed the chart and agree that the record accurately reflects my personal performance of the history, physical exam, medical decision making, and the department course for this patient. I have also personally directed, reviewed, and agree with the discharge instructions and disposition.
[2018-01-13 13:51] LABS: BASO % 0.2 % (0.0-2.0); EOS % 0.6 % (0.0-4.0); HEMOGLOBIN 10.4 g/dL (11.0-16.0); LYMPH % 20.8 % (20.0-40.0); MEAN CELL VOLUME 79.8 fL (81.0-99.0); MEAN CORPUSCULAR HEMOGLOBIN 27.1 pg (27.0-31.0); MEAN CORPUSCULAR HGB CONC 33.9 g/dL (33.0-37.0); MEAN PLATELET VOLUME 8.2 fL (7.2-11.7); MONO # 0.3 K/uL (0.0-0.8); MONO % 5.5 % (0.0-10.0); NEUT # 3.3 K/uL (1.8-7.0); NEUT % 72.9 % (50.0-75.0); RBC 3.84 Mil/uL (3.80-5.20); RED CELL DISTRIBUTION WIDTH 17.9 % (11.5-14.5); WHITE BLOOD COUNT 4.6 K/uL (4.8-10.8)
[2018-01-13] MEDS ORDERED: Sodium Chloride 0.9% 1,000 ML ONE (13:52)
[2018-01-13 13:59] LABS: INR 1.3
[2018-01-13 14:01] LABS: SQUAMOUS EPITHIAL 1 /hpf (0-5); URINE BILIRUBIN NEGATIVE (NEGATIVE); URINE BLOOD NEGATIVE (NEGATIVE); URINE CLARITY Clear (Clear); URINE COLOR Colorless (YELLOW); URINE GLUCOSE (UA) NORMAL (Normal); URINE LEUKOCYTE ESTERASE NEG Leu/uL (Negative); URINE PROTEIN NEGATIVE (NEGATIVE); URINE UROBILINOGEN NORMAL mg/dL (0.2-1.0)
[2018-01-13 14:24] LABS: ALB/GLOB RATIO 1.2 (1.0-2.1); ALBUMIN 3.6 g/dL (3.5-5.0); ALT/SGPT 25 U/L (9-52); AST/SGOT 26 U/L (14-36); BLOOD UREA NITROGEN 8 mg/dL (7-17); CALCIUM 8.3 mg/dl (8.6-10.4); GFR NON-AFRICAN AMERICAN > 60
--- NOTE | 2018-01-13 14:43 | RAD ---
Date of service: 01/13/2018 PROCEDURE: CHEST RADIOGRAPH, 1 VIEW HISTORY: GI Bleeding COMPARISON: 12/21/2017 FINDINGS: LUNGS: Clear. PLEURA: No pneumothorax or pleural fluid seen. CARDIOVASCULAR: No aortic atherosclerotic calcification present. No radiographic findings to suggest acute or significant cardiovascular disease. Venous access catheter in stable, satisfactory position. OSSEOUS STRUCTURES: No significant abnormalities. VISUALIZED UPPER ABDOMEN: Normal. OTHER FINDINGS: None. IMPRESSION: No active disease.No significant interval change compared to the prior examination(s). Concordant results with the preliminary interpretation rendered by the emergency department physician procedure.
[2018-01-13] MEDS ORDERED: Iodixanol 320 mg/ml 150 ml Bottle IV ONE (15:08)
--- NOTE | 2018-01-13 15:51 | CT ---
Date of service: 01/13/2018 PROCEDURE: CT Abdomen and Pelvis. HISTORY: EPIG PAIN, GI Bleeding HO CANCER COMPARISON: Comparison made with prior CT scan chest abdomen pelvis 12/20/2017. TECHNIQUE: Contiguous axial images of the abdomen and pelvis. Oral contrast was administered. No IV contrast given. Coronal and Sagittal reformats generated. Radiation dose: Total exam DLP = 1134.1 mGy-cm. This CT exam was performed using one or more of the following dose reduction techniques: Automated exposure control, adjustment of the mA and/or kV according to patient size, and/or use of iterative reconstruction technique. FINDINGS: LOWER THORAX: Heart appears mildly enlarged. No significant pericardial effusion. Minor passive/dependent type atelectasis both lung bases. There may also be some minimal scarring in the left lingular region. LIVER: Redemonstrated are multiple low-attenuation lesions scattered throughout the hepatic parenchyma consistent with metastatic disease. The largest lesion in the left lobe now appears contiguous/more confluent with a smaller anteriorly located lesion... Mild fatty hepatic infiltration. Portal and splenic veins are opacified. GALLBLADDER AND BILE DUCTS: Gallbladder physiologically distended. No evidence of intraluminal gallbladder calculi. PANCREAS: Pancreas appears slightly atrophic and fatty replaced. No pancreatic masses collections or calcifications. SPLEEN: Spleen is enlarged measuring over 17 cm in AP dimension. No obvious splenic mass or collection the. ADRENALS: Slightly nodular appearing left adrenal gland; the possibility of a small adrenal lesion not completely excluded. Continued follow-up at interval recommended. The. KIDNEYS AND URETERS: Unremarkable. No stone or hydronephrosis. BLADDER: The urinary bladder appears physiologically distended. No evidence of intraluminal urinary bladder calculi. REPRODUCTIVE: Uterus appears unremarkable as visualized APPENDIX: Unremarkable. BOWEL: Evaluation of the bowel is somewhat limited due to the lack of oral contrast material.. The stomach is incompletely distended which in part accounts for thick-walled appearance. Visualized loops of small bowel exhibit normal contour and caliber. No evidence of acute mechanical small bowel obstruction. Stool and air seen throughout the large bowel. Scattered colonic diverticula the bulk which seen arising from the distal transverse descending and several along the sigmoid colon. Postoperative changes presumed partial resection of the sigmoid colon with an anastomosis again noted.. The PERITONEUM: Unremarkable. No fluid collection. No free air. There is a small fat containing umbilical hernia. LYMPH NODES: Unremarkable. No enlarged lymph nodes. VASCULATURE: Unremarkable. No aortic aneurysm. No aortic atherosclerotic calcification or mural plaque present. BONES: Mild multilevel degenerative spondylosis of the thoracic and lumbar spine.. There are no acute compression fractures nor retropulsed fragments. Vertebral bodies exhibit normal stature nor obvious lytic or blastic lesions. The mild straightening of the the lumbar and lower thoracic spine. Vertebral bodies otherwise exhibit normal alignment. Facets normally aligned. OTHER FINDINGS: None. IMPRESSION: Multiple hepatic masses the largest of which is located left lobe liver consistent with metastatic disease which now appears confluent with a smaller more anteriorly located lesion along. Mid. Mild fatty hepatic infiltration. Splenomegaly. Apparent postoperative changes -resection of the sigmoid colon with stable appearing anastomosis. Diverticulosis without radiographic evidence of acute diverticulitis. Slightly nodular appearing left adrenal gland. Possibility of a small metastatic lesion not completely excluded. Follow-up interval recommended.
--- NOTE | 2018-01-13 18:33 | CP.PCM.HP ---
Past Patient History - Infectious Disease Hx of Infectious Diseases: None - Past Medical History & Family History Past Medical History?: Yes - Past Social History Smoking Status: Never Smoked - CARDIAC Hx Cardiac Disorders: Yes Hx Hypertension: Yes - PULMONARY Hx Respiratory Disorders: Yes Hx Asthma: Yes - NEUROLOGICAL Hx Neurological Disorder: No - HEENT Hx HEENT Problems: No - RENAL Hx Chronic Kidney Disease: No - ENDOCRINE/METABOLIC Hx Endocrine Disorders: No - HEMATOLOGICAL/ONCOLOGICAL Hx Blood Disorders: Yes Hx Anemia: Yes - INTEGUMENTARY Hx Dermatological Problems: No - MUSCULOSKELETAL/RHEUMATOLOGICAL Hx Musculoskeletal Disorders: Yes Hx Arthritis: Yes Hx Falls: No Hx Rheumatoid Arthritis: Yes - GASTROINTESTINAL Hx Gastrointestinal Disorders: Yes Hx Bowel Surgery: Yes Other/Comment: COLON CANCER STAGE 4 WITH CHEMOTHERAPY. R side port a cath - GENITOURINARY/GYNECOLOGICAL Hx Genitourinary Disorders: No - PSYCHIATRIC Hx Substance Use: No - SURGICAL HISTORY Hx Surgeries: Yes (SEE COMMENT) Hx Orthopedic Surgery: Yes (left knee TKR 03/2017) Hx Tubal Ligation: Yes (2005) Hx Vascular Access Device: Yes (RIGHT SUBCLAVIAN 2014) Other/Comment: colon cancer surgery april 2014 to remove tumor, rt side subclavian Port - ANESTHESIA Hx Anesthesia: Yes Hx Anesthesia Reactions: No Hx Malignant Hyperthermia: No Has any member of the family had a problem w/ anesthesia?: No Meds Allergies/Adverse Reactions: Allergies Allergy/AdvReac Type Severity Reaction Status Date / Time No Known Allergies Allergy Verified 12/21/17 11:18 Physical Exam - Constitutional Appears: Well - Head Exam Head Exam: ATRAUMATIC, NORMAL INSPECTION, NORMOCEPHALIC - Eye Exam Eye Exam: EOMI, Normal appearance, PERRL Pupil Exam: NORMAL ACCOMODATION, PERRL - ENT Exam ENT Exam: Mucous Membranes Moist, Normal Exam - Neck Exam Neck exam: Positive for: Normal Inspection - Respiratory Exam Respiratory Exam: Decreased Breath Sounds - Cardiovascular Exam Cardiovascular Exam: REGULAR RHYTHM, +S1, +S2 - GI/Abdominal Exam GI & Abdominal Exam: Diminished Bowel Sounds, Soft - Rectal Exam Rectal Exam: Deferred Results - Vital Signs Recent Vital Signs: Last Vital Signs Temp 97.1 F L 01/13/18 16:30 Pulse 81 01/13/18 16:30 Resp 20 01/13/18 16:30 BP 176/97 H 01/13/18 16:30 Pulse Ox 96 01/13/18 16:30 - Labs Result Diagrams: 01/13/18 13:43 01/13/18 13:43 Labs: Laboratory Results - last 24 hr 01/13/18 01/13/18 01/13/18 13:43 13:43 13:43 WBC 4.6 L RBC 3.84 Hgb 10.4 L Hct 30.6 L MCV 79.8 L MCH 27.1 MCHC 33.9 RDW 17.9 H Plt Count 125 L MPV 8.2 Neut % (Auto) 72.9 Lymph % (Auto) 20.8 [place] % (Auto) 5.5 Eos % (Auto) 0.6 Baso % (Auto) 0.2 Neut # (Auto) 3.3 Lymph # (Auto) 1.0 [place] # (Auto) 0.3 Eos # (Auto) 0.0 Baso # (Auto) 0.0 Differential Comment PT 14.0 H INR 1.3 APTT 42 H Sodium 134 Potassium 3.7 Chloride 100 Carbon Dioxide 25 Anion Gap 14 BUN 8 Creatinine 0.7 Est GFR ( Amer) > 60 Est GFR (Non-Af Amer) > 60 Random Glucose 83 Calcium 8.3 L Total Bilirubin 0.8 AST 26 ALT 25 Alkaline Phosphatase 77 Total Protein 6.6 Albumin 3.6 Globulin 3.0 Albumin/Globulin Ratio 1.2 Urine Color Urine Clarity Urine pH Ur Specific [place] Urine Protein Urine Glucose (UA) Urine Ketones Urine Blood Urine Nitrate Urine Bilirubin Urine Urobilinogen Ur Leukocyte Esterase Urine WBC (Auto) Ur Squamous Epith Cells Blood Type Antibody Screen 01/13/18 01/13/18 13:43 13:55 WBC RBC Hgb Hct MCV MCH MCHC RDW Plt Count MPV Neut % (Auto) Lymph % (Auto) [place] % (Auto) Eos % (Auto) Baso % (Auto) Neut # (Auto) Lymph # (Auto) [place] # (Auto) Eos # (Auto) Baso # (Auto) Differential Comment PT INR APTT Sodium Potassium Chloride Carbon Dioxide Anion Gap BUN Creatinine Est GFR ( Amer) Est GFR (Non-Af Amer) Random Glucose Calcium Total Bilirubin AST ALT Alkaline Phosphatase Total Protein Albumin Globulin Albumin/Globulin Ratio Urine Color Colorless Urine Clarity Clear Urine pH 6.0 Ur Specific [place] 1.001 L Urine Protein Negative Urine Glucose (UA) Normal Urine Ketones Negative Urine Blood Negative Urine Nitrate Negative Urine Bilirubin Negative Urine Urobilinogen Normal Ur Leukocyte Esterase Neg Urine WBC (Auto) < 1 Ur Squamous Epith Cells 1 Blood Type A POSITIVE Antibody Screen Negative
[2018-01-14] MEDS ORDERED: Octreotide 1,250 MCG in Dextrose 5% In Water 250 ML SC SCH (06:30)
--- NOTE | 2018-01-14 09:19 | CP.PCM.CON ---
<Gregory Ledbetter - Last Filed: 01/14/18 09:26> History of Present Illness - History of Present Illness History of Present Illness: GI Fellow PGY4, Consult note. Kenya Hsieh is a 46yo WF with hx of metastatic colon cancer s/p sigmoid resection and chemo, chronic constipation, bipolar disorder presenting with hematemesis x 2 days. This was her first time with vomiting blood. She has had a few episodes since Saturday. She described the vomit as bright red and "a lot" Saturday night. She went to Dr. Heath office Saturday and had the problem again, this time not as much. She was sent to ED. She has been hemodynamically stable. She admits to using diclofenac for knee pain regularly. She does not take any acid suppressive medications. She has not had a BM since yesterday and it was light brown. She states she had EGD in the past, but no records here. PMHx - Colon Cancer with liver mets 2014 s/p resection and chemo with Dr. Heath. Lung mets Dx 07/2017. Chronic constipation. PSHx - Last colonoscopy 2016 with diverticulosis, hemorrhoids, no signs of cancerous lesion but bowel prep suboptimal. FmHx - father lung cancer, 2016. SocHx - Non smoker, previous alcohol abuse, drinks occasionally. On disability, living with friends. 12pt ROS completed and negative except for as above. Past Patient History - Infectious Disease Hx of Infectious Diseases: None - Past Medical History & Family History Past Medical History?: Yes - Past Social History Smoking Status: Never Smoked - CARDIAC Hx Cardiac Disorders: Yes Hx Hypertension: Yes - PULMONARY Hx Respiratory Disorders: Yes Hx Asthma: Yes - NEUROLOGICAL Hx Neurological Disorder: No - HEENT Hx HEENT Problems: No - RENAL Hx Chronic Kidney Disease: No - ENDOCRINE/METABOLIC Hx Endocrine Disorders: No - HEMATOLOGICAL/ONCOLOGICAL Hx Blood Disorders: Yes Hx Anemia: Yes - INTEGUMENTARY Hx Dermatological Problems: No - MUSCULOSKELETAL/RHEUMATOLOGICAL Hx Musculoskeletal Disorders: Yes Hx Arthritis: Yes Hx Falls: No Hx Rheumatoid Arthritis: Yes - GASTROINTESTINAL Hx Gastrointestinal Disorders: Yes Hx Bowel Surgery: Yes Other/Comment: COLON CANCER STAGE 4 WITH CHEMOTHERAPY. R side port a cath - GENITOURINARY/GYNECOLOGICAL Hx Genitourinary Disorders: No - PSYCHIATRIC Hx Substance Use: No - SURGICAL HISTORY Hx Surgeries: Yes (SEE COMMENT) Hx Orthopedic Surgery: Yes (left knee TKR 03/2017) Hx Tubal Ligation: Yes (2005) Hx Vascular Access Device: Yes (RIGHT SUBCLAVIAN 2014) Other/Comment: colon cancer surgery april 2014 to remove tumor, rt side subclavian Port - ANESTHESIA Hx Anesthesia: Yes Hx Anesthesia Reactions: No Hx Malignant Hyperthermia: No Has any member of the family had a problem w/ anesthesia?: No Meds Allergies/Adverse Reactions: Allergies Allergy/AdvReac Type Severity Reaction Status Date / Time No Known Allergies Allergy Verified 12/21/17 11:18 - Medications Medications: Current Medications Duloxetine HCl (Cymbalta) 30 mg PO DAILY [facility] Escitalopram Oxalate (Lexapro) 20 mg PO DAILY [facility] Finasteride (Proscar) 5 mg PO DAILY [facility] Octreotide Acetate 1,250 mcg/ (Dextrose) 252.5 mls @ 5.05 mls/hr SC .Q24H [facility]; Protocol Last Admin: 01/14/18 07:37 Dose: 5.05 mls/hr Pantoprazole Sodium (Protonix Inj) 40 mg IVP BID [facility] Risperidone (Risperdal Tab) 2 mg PO BID [facility] Last Admin: 01/13/18 18:59 Dose: 2 mg Zolpidem Tartrate (Ambien) 5 mg PO HS [facility] Last Admin: 01/13/18 22:07 Dose: 5 mg Physical Exam - Constitutional Appears: Well, Non-toxic - Head Exam Head Exam: NORMAL INSPECTION, NORMOCEPHALIC - Eye Exam Eye Exam: EOMI, Normal appearance - ENT Exam ENT Exam: Mucous Membranes Moist, Normal Exam - Respiratory Exam Respiratory Exam: Clear to Auscultation Bilateral, NORMAL BREATHING PATTERN - Cardiovascular Exam Cardiovascular Exam: REGULAR RHYTHM, +S1, +S2 - GI/Abdominal Exam GI & Abdominal Exam: Normal Bowel Sounds, Soft, Tenderness. absent: Organomegaly - Rectal Exam Rectal Exam: Deferred - Extremities Exam Extremities exam: Positive for: full ROM, normal inspection - Neurological Exam Neurological exam: Alert, CN II-XII Intact, Oriented x3 - Psychiatric Exam Psychiatric exam: Flat Affect, Normal Mood - Skin Skin Exam: Dry, Normal Color Results - Vital Signs Recent Vital Signs: Last Vital Signs Temp 98.1 F 01/14/18 07:00 Pulse 81 01/14/18 07:00 Resp 20 01/14/18 07:00 BP 175/84 H 01/14/18 07:00 Pulse Ox 96 01/14/18 07:00 - Labs Result Diagrams: 01/13/18 13:43 01/13/18 13:43 Labs: Laboratory Results - last 24 hr 01/13/18 01/13/18 01/13/18 13:43 13:43 13:43 WBC 4.6 L RBC 3.84 Hgb 10.4 L Hct 30.6 L MCV 79.8 L MCH 27.1 MCHC 33.9 RDW 17.9 H Plt Count 125 L MPV 8.2 Neut % (Auto) 72.9 Lymph % (Auto) 20.8 [place] % (Auto) 5.5 Eos % (Auto) 0.6 Baso % (Auto) 0.2 Neut # (Auto) 3.3 Lymph # (Auto) 1.0 [place] # (Auto) 0.3 Eos # (Auto) 0.0 Baso # (Auto) 0.0 Differential Comment PT 14.0 H INR 1.3 APTT 42 H Sodium 134 Potassium 3.7 Chloride 100 Carbon Dioxide 25 Anion Gap 14 BUN 8 Creatinine 0.7 Est GFR ( Amer) > 60 Est GFR (Non-Af Amer) > 60 Random Glucose 83 Calcium 8.3 L Total Bilirubin 0.8 AST 26 ALT 25 Alkaline Phosphatase 77 Total Protein 6.6 Albumin 3.6 Globulin 3.0 Albumin/Globulin Ratio 1.2 Urine Color Urine Clarity Urine pH Ur Specific [place] Urine Protein Urine Glucose (UA) Urine Ketones Urine Blood Urine Nitrate Urine Bilirubin Urine Urobilinogen Ur Leukocyte Esterase Urine WBC (Auto) Ur Squamous Epith Cells Blood Type Antibody Screen 01/13/18 01/13/18 13:43 13:55 WBC RBC Hgb Hct MCV MCH MCHC RDW Plt Count MPV Neut % (Auto) Lymph % (Auto) [place] % (Auto) Eos % (Auto) Baso % (Auto) Neut # (Auto) Lymph # (Auto) [place] # (Auto) Eos # (Auto) Baso # (Auto) Differential Comment PT INR APTT Sodium Potassium Chloride Carbon Dioxide Anion Gap BUN Creatinine Est GFR ( Amer) Est GFR (Non-Af Amer) Random Glucose Calcium Total Bilirubin AST ALT Alkaline Phosphatase Total Protein Albumin Globulin Albumin/Globulin Ratio Urine Color Colorless Urine Clarity Clear Urine pH 6.0 Ur Specific [place] 1.001 L Urine Protein Negative Urine Glucose (UA) Normal Urine Ketones Negative Urine Blood Negative Urine Nitrate Negative Urine Bilirubin Negative Urine Urobilinogen Normal Ur Leukocyte Esterase Neg Urine WBC (Auto) < 1 Ur Squamous Epith Cells 1 Blood Type A POSITIVE Antibody Screen Negative Assessment & Plan - Assessment and Plan (Free Text) Assessment: #Hematemesis #Metastatic colon cancer s/p resection (2015) and chemo last 01/14/18 #Bipolar disorder #Iron deficiency anemia #Mild thrombocytopenia #Diverticulosis #Hemorrhoids Plan: -CT abd/pelv reviewed and agree with liver lesions, splenic/portal vein opacities -CLD -Plan for EGD tomorrow AM. NPO PM. -PPI IV BID. -Octreotide bolus and drip in setting of liver mets and portal vein opacity -Avoid NSAIDs, anticoagulation. -Antiemetics - Date & Time Date: 01/14/18 Time: 09:20 <Manolo Sharma - Last Filed: 01/14/18 09:53> Meds - Medications Medications: Current Medications Duloxetine HCl (Cymbalta) 30 mg PO DAILY [facility] Last Admin: 01/14/18 09:27 Dose: 30 mg Escitalopram Oxalate (Lexapro) 20 mg PO DAILY [facility] Last Admin: 01/14/18 09:27 Dose: 20 mg Finasteride (Proscar) 5 mg PO DAILY [facility] Last Admin: 01/14/18 09:27 Dose: 5 mg Octreotide Acetate 1,250 mcg/ (Dextrose) 252.5 mls @ 5.05 mls/hr SC .Q24H [facility]; Protocol Last Admin: 01/14/18 07:37 Dose: 5.05 mls/hr Pantoprazole Sodium (Protonix Inj) 40 mg IVP BID [facility] Last Admin: 01/14/18 09:27 Dose: 40 mg Risperidone (Risperdal Tab) 2 mg PO BID [facility] Last Admin: 01/14/18 09:27 Dose: 2 mg Zolpidem Tartrate (Ambien) 5 mg PO HS [facility] Last Admin: 01/13/18 22:07 Dose: 5 mg Results - Vital Signs Recent Vital Signs: Last Vital Signs Temp 98.1 F 01/14/18 07:00 Pulse 81 01/14/18 07:00 Resp 20 01/14/18 07:00 BP 175/84 H 01/14/18 07:00 Pulse Ox 96 01/14/18 07:00 - Labs Result Diagrams: 01/13/18 13:43 01/13/18 13:43 Labs: Laboratory Results - last 24 hr 01/13/18 01/13/18 01/13/18 13:43 13:43 13:43 WBC 4.6 L RBC 3.84 Hgb 10.4 L Hct 30.6 L MCV 79.8 L MCH 27.1 MCHC 33.9 RDW 17.9 H Plt Count 125 L MPV 8.2 Neut % (Auto) 72.9 Lymph % (Auto) 20.8 [place] % (Auto) 5.5 Eos % (Auto) 0.6 Baso % (Auto) 0.2 Neut # (Auto) 3.3 Lymph # (Auto) 1.0 [place] # (Auto) 0.3 Eos # (Auto) 0.0 Baso # (Auto) 0.0 Differential Comment PT 14.0 H INR 1.3 APTT 42 H Sodium 134 Potassium 3.7 Chloride 100 Carbon Dioxide 25 Anion Gap 14 BUN 8 Creatinine 0.7 Est GFR ( Amer) > 60 Est GFR (Non-Af Amer) > 60 Random Glucose 83 Calcium 8.3 L Total Bilirubin 0.8 AST 26 ALT 25 Alkaline Phosphatase 77 Total Protein 6.6 Albumin 3.6 Globulin 3.0 Albumin/Globulin Ratio 1.2 Urine Color Urine Clarity Urine pH Ur Specific [place] Urine Protein Urine Glucose (UA) Urine Ketones Urine Blood Urine Nitrate Urine Bilirubin Urine Urobilinogen Ur Leukocyte Esterase Urine WBC (Auto) Ur Squamous Epith Cells Blood Type Antibody Screen 01/13/18 01/13/18 13:43 13:55 WBC RBC Hgb Hct MCV MCH MCHC RDW Plt Count MPV Neut % (Auto) Lymph % (Auto) [place] % (Auto) Eos % (Auto) Baso % (Auto) Neut # (Auto) Lymph # (Auto) [place] # (Auto) Eos # (Auto) Baso # (Auto) Differential Comment PT INR APTT Sodium Potassium Chloride Carbon Dioxide Anion Gap BUN Creatinine Est GFR ( Amer) Est GFR (Non-Af Amer) Random Glucose Calcium Total Bilirubin AST ALT Alkaline Phosphatase Total Protein Albumin Globulin Albumin/Globulin Ratio Urine Color Colorless Urine Clarity Clear Urine pH 6.0 Ur Specific [place] 1.001 L Urine Protein Negative Urine Glucose (UA) Normal Urine Ketones Negative Urine Blood Negative Urine Nitrate Negative Urine Bilirubin Negative Urine Urobilinogen Normal Ur Leukocyte Esterase Neg Urine WBC (Auto) < 1 Ur Squamous Epith Cells 1 Blood Type A POSITIVE Antibody Screen Negative Attending/Attestation - Attestation I have personally seen and examined this patient.: Yes I have fully participated in the care of the patient.: Yes I have reviewed all pertinent clinical information: Yes Notes (Text): 01/14/18 09:41 I have seen and examined patient with GI fellow. Agree with above documentation with the following additions. In brief, this is a 47 year old female with history of metastatic colon cancer s/p sigmoid resection on chemotherapy, bipolar disorder, who presents to hospital with complaint of hematemesis which began two days ago. She reports sudden onset of symptoms that was associated with mild epigastric abdominal pain, 3/10 intensity. She does admit to daily NSAID use for knee related pain. She otherwise denies fever/chills, weight loss, rectal bleeding, melena, or change in bowel habits. She has not had prior EGD, last colonoscopy was in September 2016 which showed diverticulosis and suboptimal bowel preparation. Stage IV colon cancer with liver metastatic disease on chemotherapy Bipolar disorder Abdominal pain, hematemesis - Clear liquid diet as tolerated - H/H stable, continue to monitor - Continue with PPI therapy - Continue with octreotide given liver metastatic disease with concern for portal hypertension - Will plan for EGD tomorrow morning to rule out peptic ulcer disease or varices, NPO after midnight
--- NOTE | 2018-01-14 11:46 | CP.PCM.PN ---
Subjective - Date & Time of Evaluation Date of Evaluation: 01/14/18 Time of Evaluation: 10:30 - Subjective Subjective: clinically same Objective - Vital Signs/Intake and Output Vital Signs (last 24 hours): Temp Pulse Resp BP Pulse Ox 98.1 F 81 20 175/84 H 96 01/14/18 07:00 01/14/18 07:00 01/14/18 07:00 01/14/18 07:00 01/14/18 07:00 - Medications Medications: Current Medications Duloxetine HCl (Cymbalta) 30 mg PO DAILY [facility] Last Admin: 01/14/18 09:27 Dose: 30 mg Escitalopram Oxalate (Lexapro) 20 mg PO DAILY [facility] Last Admin: 01/14/18 09:27 Dose: 20 mg Finasteride (Proscar) 5 mg PO DAILY [facility] Last Admin: 01/14/18 09:27 Dose: 5 mg Octreotide Acetate 1,250 mcg/ (Dextrose) 252.5 mls @ 5.05 mls/hr SC .Q24H [facility]; Protocol Last Admin: 01/14/18 07:37 Dose: 5.05 mls/hr Pantoprazole Sodium (Protonix Inj) 40 mg IVP BID [facility] Last Admin: 01/14/18 09:27 Dose: 40 mg Risperidone (Risperdal Tab) 2 mg PO BID [facility] Last Admin: 01/14/18 09:27 Dose: 2 mg Zolpidem Tartrate (Ambien) 5 mg PO HS [facility] Last Admin: 01/13/18 22:07 Dose: 5 mg - Labs Labs: 01/13/18 13:43 01/13/18 13:43 PT 14.0 SECONDS (9.7-12.2) H 01/13/18 13:43 INR 1.3 01/13/18 13:43 APTT 42 SECONDS (21-34) H 01/13/18 13:43 - Constitutional Appears: Well - Head Exam Head Exam: ATRAUMATIC, NORMAL INSPECTION, NORMOCEPHALIC - Eye Exam Eye Exam: EOMI, Normal appearance, PERRL Pupil Exam: NORMAL ACCOMODATION, PERRL - ENT Exam ENT Exam: Mucous Membranes Moist, Normal Exam - Neck Exam Neck Exam: Full ROM, Normal Inspection. absent: Lymphadenopathy - Respiratory Exam Respiratory Exam: Decreased Breath Sounds - Cardiovascular Exam Cardiovascular Exam: REGULAR RHYTHM, +S1, +S2 - GI/Abdominal Exam GI & Abdominal Exam: Soft, Diminished Bowel Sounds - Rectal Exam Rectal Exam: Deferred
[2018-01-14] MEDS ORDERED: Piperacillin/Tazobact 3.375 GM in Sodium Chloride 100 ML IVPB SCH (17:45)
[2018-01-14] MEDS ORDERED: Piperacill/Tazo 3.375gm in Dex 3.375 GM/50 ML BAG IVPB ONE (18:00)
[2018-01-15] MEDS: Piperacill/Tazo 3.375gm in Dex 3.375 GM/50 ML BAG IVPB SCH ×3 (02:55→17:01)
[2018-01-15] MEDS ORDERED: Octreotide 1,250 MCG in Dextrose 5% In Water 250 ML IV SCH (06:30)
[2018-01-15 08:29] LABS: BASO % 0.3 % (0.0-2.0); EOS % 0.6 % (0.0-4.0); HEMOGLOBIN 11.7 g/dL (11.0-16.0); LYMPH # 0.8 K/uL (1.0-4.3); LYMPH % 20.9 % (20.0-40.0); MEAN CELL VOLUME 80.2 fL (81.0-99.0); MEAN CORPUSCULAR HGB CONC 33.7 g/dL (33.0-37.0); MEAN PLATELET VOLUME 8.3 fL (7.2-11.7); MONO # 0.2 K/uL (0.0-0.8); MONO % 5.8 % (0.0-10.0); NEUT # 2.9 K/uL (1.8-7.0); NEUT % 72.4 % (50.0-75.0); NRBC % 0.2 % (0.0-2.0); RBC 4.33 Mil/uL (3.80-5.20); RED CELL DISTRIBUTION WIDTH 17.4 % (11.5-14.5); WHITE BLOOD COUNT 3.9 K/uL (4.8-10.8)
[2018-01-15 08:54] LABS: ALB/GLOB RATIO 1.2 (1.0-2.1); ALT/SGPT 31 U/L (9-52); AST/SGOT 33 U/L (14-36); BLOOD UREA NITROGEN 6 mg/dL (7-17); CALCIUM 8.9 mg/dl (8.6-10.4); GFR NON-AFRICAN AMERICAN > 60
[2018-01-15] MEDS ORDERED: Lactated Ringer's 1,000 ML IV ONE (11:25)
[2018-01-15] MEDS ORDERED: Propofol 10 mg/ml Inj (20 ML) ONE ×2 (11:32→11:40)
--- NOTE | 2018-01-15 11:53 | CP.PCM.PN ---
Subjective - Date & Time of Evaluation Date of Evaluation: 01/15/18 Time of Evaluation: 11:50 - Subjective Subjective: Patient seen and examined, resting in bed comfortably. No acute events overnight, no recurrent episodes of vomiting noted since arrival to hospital. She was able to tolerate PO liquids without difficulty. s/p EGD today showing mild gastritis. Objective - Vital Signs/Intake and Output Vital Signs (last 24 hours): Temp Pulse Resp BP Pulse Ox 97.2 F L 107 H 20 153/104 H 93 L 01/15/18 07:10 01/15/18 07:35 01/15/18 07:10 01/15/18 07:10 01/15/18 07:10 - Medications Medications: Current Medications Amlodipine Besylate (Norvasc) 10 mg PO DAILY [facility] Last Admin: 01/15/18 09:11 Dose: Not Given Clonazepam (Klonopin) 1 mg PO Q12 PRN PRN Reason: Anxiety Last Admin: 01/14/18 18:23 Dose: 1 mg Duloxetine HCl (Cymbalta) 30 mg PO DAILY [facility] Last Admin: 01/15/18 09:10 Dose: 30 mg Escitalopram Oxalate (Lexapro) 20 mg PO DAILY [facility] Last Admin: 01/15/18 09:10 Dose: 20 mg Finasteride (Proscar) 5 mg PO DAILY [facility] Last Admin: 01/15/18 09:10 Dose: 5 mg Piperacillin Sod/Tazobactam Sod (Zosyn 3.375 Gm Iv Premix) 3.375 gm in 50 mls @ 200 mls/hr IVPB Q8H [facility]; Protocol Last Admin: 01/15/18 10:07 Dose: 200 mls/hr Pantoprazole Sodium (Protonix Inj) 40 mg IVP BID [facility] Last Admin: 01/15/18 09:10 Dose: 40 mg Risperidone (Risperdal Tab) 2 mg PO BID [facility] Last Admin: 01/15/18 09:10 Dose: 2 mg Zolpidem Tartrate (Ambien) 5 mg PO HS [facility] Last Admin: 01/14/18 21:27 Dose: 5 mg - Labs Labs: 01/15/18 08:20 01/15/18 08:20 PT 14.0 SECONDS (9.7-12.2) H 01/13/18 13:43 INR 1.3 01/13/18 13:43 APTT 42 SECONDS (21-34) H 01/13/18 13:43 Assessment and Plan - Assessment and Plan (Free Text) Assessment: Stage IV colon cancer with hepatic and pulmonary metastatic disease HTN Bipolar disorder Hematemesis - s/p EGD today showing mild gastritis Plan: - Advanced diet as tolerated - Follow up biopsy results - H/H stable, continue to monitor - Continue with PPI therapy, can discontinue octreotide given absence of varices - Patient would benefit from additional outpatient follow up and surveillance colonoscopy. No further planned GI interventions, will sign off case. Please reconsult as necessary, thank you.
[2018-01-15 13:32] VITALS: RESP 20
--- NOTE | 2018-01-15 13:39 | CP.PCM.CON ---
History of Present Illness - History of Present Illness History of Present Illness: 47 year old female with history of depression, stage IV colon cancer with liver and lung metastasis dx in 05/2014, recently restarted on chemotherapy, admitted with hematemesis. The patient has been receiving chemotherapy in the office and notes to feeling nauseous post chemotherapy. When she vomited, she notes to seeing blood. She denies shortness of breath and chest pain. Past medical history: depression, anemia, colon cancer Past surgical history: Knee surgery, portacatheter placement and removal Family history: Denies hematologic and oncologic problems Social history: Denies tobacco, alcohol, and illicit drug use. Allergies: NKA Review of systems: All remaining review of systems including HEENT, ca rdiovascular, respiratory, gastrointestinal, genitourinary, musculoskeletal, dermatologic, psychiatric, neurologic are negative unless mentioned in the history of present illness. Past Patient History - Infectious Disease Hx of Infectious Diseases: None - Past Medical History & Family History Past Medical History?: Yes - Past Social History Smoking Status: Never Smoked - CARDIAC Hx Cardiac Disorders: Yes Hx Hypertension: Yes - PULMONARY Hx Respiratory Disorders: Yes Hx Asthma: Yes - NEUROLOGICAL Hx Neurological Disorder: No - HEENT Hx HEENT Problems: No - RENAL Hx Chronic Kidney Disease: No - ENDOCRINE/METABOLIC Hx Endocrine Disorders: No - HEMATOLOGICAL/ONCOLOGICAL Hx Blood Disorders: Yes Hx Anemia: Yes - INTEGUMENTARY Hx Dermatological Problems: No - MUSCULOSKELETAL/RHEUMATOLOGICAL Hx Musculoskeletal Disorders: Yes Hx Arthritis: Yes Hx Falls: No Hx Rheumatoid Arthritis: Yes - GASTROINTESTINAL Hx Gastrointestinal Disorders: Yes Hx Bowel Surgery: Yes Other/Comment: COLON CANCER STAGE 4 WITH CHEMOTHERAPY. R side port a cath - GENITOURINARY/GYNECOLOGICAL Hx Genitourinary Disorders: No - PSYCHIATRIC Hx Substance Use: No - SURGICAL HISTORY Hx Surgeries: Yes (SEE COMMENT) Hx Orthopedic Surgery: Yes (left knee TKR 03/2017) Hx Tubal Ligation: Yes (2005) Hx Vascular Access Device: Yes (RIGHT SUBCLAVIAN 2014) Other/Comment: colon cancer surgery april 2014 to remove tumor, rt side subclavian Port - ANESTHESIA Hx Anesthesia: Yes Hx Anesthesia Reactions: No Hx Malignant Hyperthermia: No Has any member of the family had a problem w/ anesthesia?: No Meds Home Medications: Home Medication List Medication Instructions Recorded Confirmed Type Amoxicillin/Clavulanate [Augmentin 1 tab PO Q12 #20 tab 01/17/18 Rx 875 MG-125 MG] Lactobacillus Acidophilus [Bacid 1 cap PO HS #10 cap 01/17/18 Rx Acidophilus] Pantoprazole [Protonix EC Tab] 20 mg PO DAILY #15 ect 01/17/18 Rx Allergies/Adverse Reactions: Allergies Allergy/AdvReac Type Severity Reaction Status Date / Time No Known Allergies Allergy Verified 12/21/17 11:18 - Medications Medications: Current Medications Amlodipine Besylate (Norvasc) 10 mg PO DAILY [facility] Last Admin: 01/15/18 09:11 Dose: Not Given Clonazepam (Klonopin) 1 mg PO Q12 PRN PRN Reason: Anxiety Last Admin: 01/14/18 18:23 Dose: 1 mg Duloxetine HCl (Cymbalta) 30 mg PO DAILY [facility] Last Admin: 01/15/18 09:10 Dose: 30 mg Escitalopram Oxalate (Lexapro) 20 mg PO DAILY [facility] Last Admin: 01/15/18 09:10 Dose: 20 mg Finasteride (Proscar) 5 mg PO DAILY [facility] Last Admin: 01/15/18 09:10 Dose: 5 mg Piperacillin Sod/Tazobactam Sod (Zosyn 3.375 Gm Iv Premix) 3.375 gm in 50 mls @ 200 mls/hr IVPB Q8H [facility]; Protocol Last Admin: 01/15/18 10:07 Dose: 200 mls/hr Pantoprazole Sodium (Protonix Inj) 40 mg IVP BID [facility] Last Admin: 01/15/18 09:10 Dose: 40 mg Risperidone (Risperdal Tab) 2 mg PO BID [facility] Last Admin: 01/15/18 09:10 Dose: 2 mg Zolpidem Tartrate (Ambien) 5 mg PO [facility] Last Admin: 01/14/18 21:27 Dose: 5 mg Physical Exam - Head Exam Head Exam: ATRAUMATIC - Eye Exam Eye Exam: Normal appearance - ENT Exam ENT Exam: Mucous Membranes Dry - Respiratory Exam Respiratory Exam: NORMAL BREATHING PATTERN - Cardiovascular Exam Cardiovascular Exam: +S1, +S2 - GI/Abdominal Exam GI & Abdominal Exam: Normal Bowel Sounds - Extremities Exam Extremities exam: Positive for: normal inspection - Neurological Exam Neurological exam: Oriented x3 - Psychiatric Exam Psychiatric exam: Normal Affect, Normal Mood - Skin Skin Exam: Warm Results - Vital Signs Recent Vital Signs: Last Vital Signs Temp 98.4 F 01/15/18 12:35 Pulse 88 01/15/18 12:35 Resp 20 01/15/18 12:35 BP 137/93 H 01/15/18 12:35 Pulse Ox 93 L 01/15/18 12:35 - Labs Result Diagrams: 01/16/18 06:42 01/16/18 06:42 Labs: Laboratory Results - last 24 hr 01/15/18 01/15/18 01/15/18 08:20 08:20 08:20 WBC 3.9 L RBC 4.33 Hgb 11.7 Hct 34.7 MCV 80.2 L MCH 27.0 MCHC 33.7 RDW 17.4 H Plt Count 157 MPV 8.3 Neut % (Auto) 72.4 Lymph % (Auto) 20.9 Ada % (Auto) 5.8 Eos % (Auto) 0.6 Baso % (Auto) 0.3 Neut # (Auto) 2.9 Lymph # (Auto) 0.8 L Ada # (Auto) 0.2 Eos # (Auto) 0.0 Baso # (Auto) 0.0 Sodium 139 Potassium 4.2 Chloride 99 Carbon Dioxide 28 Anion Gap 16 BUN 6 L Creatinine 0.8 Est GFR ( Amer) > 60 Est GFR (Non-Af Amer) > 60 Random Glucose 128 H Calcium 8.9 Total Bilirubin 0.9 AST 33 ALT 31 Alkaline Phosphatase 62 Total Protein 7.3 Albumin 4.0 Globulin 3.3 Albumin/Globulin Ratio 1.2 Beta HCG, Quant < 2.39 Assessment & Plan (1) Anemia Assessment and Plan: mild anemia of chemotherapy Status: Acute (2) Leukopenia Assessment and Plan: secondary to chemotherapy Status: Acute (3) Stage IV carcinoma of colon Assessment and Plan: lung and liver metastasis outpatient chemotherapy Thank you for this interesting consult. Status: Acute
--- NOTE | 2018-01-15 14:29 | CP.PCM.PN ---
Subjective - Date & Time of Evaluation Date of Evaluation: 01/15/18 Time of Evaluation: 10:45 - Subjective Subjective: clinically same Objective - Vital Signs/Intake and Output Vital Signs (last 24 hours): Temp Pulse Resp BP Pulse Ox 98.4 F 81 20 137/93 H 93 L 01/15/18 12:35 01/15/18 13:30 01/15/18 12:35 01/15/18 12:35 01/15/18 12:35 - Medications Medications: Current Medications Amlodipine Besylate (Norvasc) 10 mg PO DAILY [facility] Last Admin: 01/15/18 09:11 Dose: Not Given Clonazepam (Klonopin) 1 mg PO Q12 PRN PRN Reason: Anxiety Last Admin: 01/14/18 18:23 Dose: 1 mg Duloxetine HCl (Cymbalta) 30 mg PO DAILY [facility] Last Admin: 01/15/18 09:10 Dose: 30 mg Escitalopram Oxalate (Lexapro) 20 mg PO DAILY [facility] Last Admin: 01/15/18 09:10 Dose: 20 mg Finasteride (Proscar) 5 mg PO DAILY [facility] Last Admin: 01/15/18 09:10 Dose: 5 mg Piperacillin Sod/Tazobactam Sod (Zosyn 3.375 Gm Iv Premix) 3.375 gm in 50 mls @ 200 mls/hr IVPB Q8H [facility]; Protocol Last Admin: 01/15/18 10:07 Dose: 200 mls/hr Pantoprazole Sodium (Protonix Inj) 40 mg IVP BID [facility] Last Admin: 01/15/18 09:10 Dose: 40 mg Risperidone (Risperdal Tab) 2 mg PO BID [facility] Last Admin: 01/15/18 09:10 Dose: 2 mg Zolpidem Tartrate (Ambien) 5 mg PO HS [facility] Last Admin: 01/14/18 21:27 Dose: 5 mg - Labs Labs: 01/15/18 08:20 01/15/18 08:20 PT 14.0 SECONDS (9.7-12.2) H 01/13/18 13:43 INR 1.3 01/13/18 13:43 APTT 42 SECONDS (21-34) H 01/13/18 13:43 - Constitutional Appears: Well - Head Exam Head Exam: ATRAUMATIC, NORMAL INSPECTION, NORMOCEPHALIC - Eye Exam Eye Exam: EOMI, Normal appearance, PERRL Pupil Exam: NORMAL ACCOMODATION, PERRL - ENT Exam ENT Exam: Mucous Membranes Moist, Normal Exam - Neck Exam Neck Exam: Full ROM, Normal Inspection. absent: Lymphadenopathy - Respiratory Exam Respiratory Exam: Decreased Breath Sounds - Cardiovascular Exam Cardiovascular Exam: REGULAR RHYTHM, +S1, +S2 - GI/Abdominal Exam GI & Abdominal Exam: Soft, Diminished Bowel Sounds - Rectal Exam Rectal Exam: Deferred
[2018-01-16] MEDS: Piperacill/Tazo 3.375gm in Dex 3.375 GM/50 ML BAG IVPB SCH ×4 (02:16→18:45)
[2018-01-16 07:00] LABS: BASO % 0.3 % (0.0-2.0); EOS % 0.9 % (0.0-4.0); HEMOGLOBIN 12.3 g/dL (11.0-16.0); LYMPH # 1.3 K/uL (1.0-4.3); LYMPH % 24.6 % (20.0-40.0); MEAN CORPUSCULAR HEMOGLOBIN 26.9 pg (27.0-31.0); MEAN CORPUSCULAR HGB CONC 33.6 g/dL (33.0-37.0); MEAN PLATELET VOLUME 8.3 fL (7.2-11.7); MONO # 0.3 K/uL (0.0-0.8); MONO % 6.2 % (0.0-10.0); NEUT # 3.7 K/uL (1.8-7.0); NRBC % 0.1 % (0.0-2.0); RBC 4.6 Mil/uL (3.80-5.20); RED CELL DISTRIBUTION WIDTH 17.5 % (11.5-14.5); WHITE BLOOD COUNT 5.4 K/uL (4.8-10.8)
[2018-01-16 07:04] LABS: ALB/GLOB RATIO 1.3 (1.0-2.1); ALBUMIN 4.3 g/dL (3.5-5.0); ALT/SGPT 18 U/L (9-52); AST/SGOT 28 U/L (14-36); BLOOD UREA NITROGEN 10 mg/dL (7-17); CALCIUM 8.9 mg/dl (8.6-10.4); GFR NON-AFRICAN AMERICAN > 60
--- NOTE | 2018-01-16 19:41 | CP.PCM.PN ---
Subjective - Date & Time of Evaluation Date of Evaluation: 01/16/18 Time of Evaluation: 10:15 - Subjective Subjective: clinically same Objective - Vital Signs/Intake and Output Vital Signs (last 24 hours): Temp Pulse Resp BP Pulse Ox 97.8 F 100 H 20 128/73 97 01/16/18 15:00 01/16/18 15:35 01/16/18 15:00 01/16/18 15:00 01/16/18 15:00 Intake and Output: 01/16/18 01/17/18 18:59 06:59 Intake Total 480 Balance 480 - Medications Medications: Current Medications Amlodipine Besylate (Norvasc) 10 mg PO DAILY [facility] Last Admin: 01/16/18 09:12 Dose: 10 mg Clonazepam (Klonopin) 1 mg PO Q12 PRN PRN Reason: Anxiety Last Admin: 01/15/18 22:34 Dose: 1 mg Duloxetine HCl (Cymbalta) 30 mg PO DAILY [facility] Last Admin: 01/16/18 09:13 Dose: 30 mg Escitalopram Oxalate (Lexapro) 20 mg PO DAILY [facility] Last Admin: 01/16/18 09:12 Dose: 20 mg Finasteride (Proscar) 5 mg PO DAILY [facility] Last Admin: 01/16/18 09:12 Dose: 5 mg Piperacillin Sod/Tazobactam Sod (Zosyn 3.375 Gm Iv Premix) 3.375 gm in 50 mls @ 200 mls/hr IVPB Q8H [facility]; Protocol Last Admin: 01/16/18 18:45 Dose: 200 mls/hr Pantoprazole Sodium (Protonix Inj) 40 mg IVP BID [facility] Last Admin: 01/16/18 17:28 Dose: 40 mg Risperidone (Risperdal Tab) 2 mg PO BID [facility] Last Admin: 01/16/18 17:29 Dose: 2 mg Zolpidem Tartrate (Ambien) 5 mg PO HS [facility] Last Admin: 01/15/18 21:06 Dose: 5 mg - Labs Labs: 01/16/18 06:42 01/16/18 06:42 PT 14.0 SECONDS (9.7-12.2) H 01/13/18 13:43 INR 1.3 01/13/18 13:43 APTT 42 SECONDS (21-34) H 01/13/18 13:43 - Constitutional Appears: Well - Head Exam Head Exam: ATRAUMATIC, NORMAL INSPECTION, NORMOCEPHALIC - Eye Exam Eye Exam: EOMI, Normal appearance, PERRL Pupil Exam: NORMAL ACCOMODATION, PERRL - ENT Exam ENT Exam: Mucous Membranes Moist, Normal Exam - Neck Exam Neck Exam: Full ROM, Normal Inspection. absent: Lymphadenopathy - Respiratory Exam Respiratory Exam: Decreased Breath Sounds - Cardiovascular Exam Cardiovascular Exam: REGULAR RHYTHM, +S1, +S2 - GI/Abdominal Exam GI & Abdominal Exam: Soft, Diminished Bowel Sounds - Rectal Exam Rectal Exam: Deferred
[2018-01-17] MEDS: Piperacill/Tazo 3.375gm in Dex 3.375 GM/50 ML BAG IVPB SCH ×2 (01:01→09:34)
[2018-01-17 08:16] VITALS: BP 128/83; PULSE 72; TEMP 97.5; O2SAT 99
[2018-01-17] MEDS ORDERED: Enoxaparin 40 mg Syringe SC SCH (11:00)
--- NOTE | 2018-01-17 15:07 | CP.PCM.PN ---
Subjective - Date & Time of Evaluation Date of Evaluation: 01/17/18 Time of Evaluation: 13:30 - Subjective Subjective: weed cutter notes Objective - Vital Signs/Intake and Output Vital Signs (last 24 hours): Temp Pulse Resp BP Pulse Ox 97.5 F L 72 20 128/83 99 01/17/18 08:00 01/17/18 08:00 01/17/18 08:00 01/17/18 08:00 01/17/18 08:00 - Labs Labs: 01/16/18 06:42 01/16/18 06:42 PT 14.0 SECONDS (9.7-12.2) H 01/13/18 13:43 INR 1.3 01/13/18 13:43 APTT 42 SECONDS (21-34) H 01/13/18 13:43 Assessment and Plan - Assessment and Plan (Free Text) Assessment: A/P 47 yr old female with Stage IV colon cancer , HTN and Bipolar disorder admitted with abdominal pain and Hematemesis - s/p EGD today showing mild gastritis vss and labs - reviewed- hgb stable - 12.3 seen by lee Parker today, cleared for discharged home today continue 10 days of augmentin for left thigh skin abscess RX given
--- NOTE | 2018-01-19 23:45 | CP.PCM.PN ---
Subjective - Date & Time of Evaluation Date of Evaluation: 01/17/18 Time of Evaluation: 12:00 - Subjective Subjective: Feeling better EGD showed gastritis Objective - Vital Signs/Intake and Output Vital Signs (last 24 hours): Temp Pulse Resp BP Pulse Ox 97.5 F L 72 20 128/83 99 01/17/18 08:00 01/17/18 08:00 01/17/18 08:00 01/17/18 08:00 01/17/18 08:00 - Labs Labs: 01/16/18 06:42 01/16/18 06:42 PT 14.0 SECONDS (9.7-12.2) H 01/13/18 13:43 INR 1.3 01/13/18 13:43 APTT 42 SECONDS (21-34) H 01/13/18 13:43 - Head Exam Head Exam: ATRAUMATIC - Eye Exam Eye Exam: Normal appearance - ENT Exam ENT Exam: Mucous Membranes Dry - Respiratory Exam Respiratory Exam: NORMAL BREATHING PATTERN - Cardiovascular Exam Cardiovascular Exam: +S1, +S2 - GI/Abdominal Exam GI & Abdominal Exam: Normal Bowel Sounds Assessment and Plan (1) Anemia Assessment & Plan: anemia of chemotherapy EGD showed gastritis Status: Acute (2) Leukopenia Assessment & Plan: secondary to chemotherapy Status: Acute (3) Stage IV carcinoma of colon Assessment & Plan: lung and liver metastasis outpatient chemotherapy Status: Acute
== END 2018-01-17 14:40 | disposition home or self-care (01) | DRG 378 ==
LOC: C.ER 12:36 → C.5S 14:28
PROVIDERS: ADMIT Internal Medicine Nephrology; ATTEND Internal Medicine Nephrology
PROC: 0DB68ZX Excision of Stomach, Via Natural or Artificial Opening Endoscopic, Diagnostic (ICD-10-PCS; principal; 2018-01-15 11:25)
DX: K92.0 Hematemesis (principal); C18.9 Malignant neoplasm of colon, unspecified; C78.7 Secondary malignant neoplasm of liver and intrahepatic bile duct; C78.00 Secondary malignant neoplasm of unspecified lung; D69.6 Thrombocytopenia, unspecified; D50.9 Iron deficiency anemia, unspecified; F20.9 Schizophrenia, unspecified; F31.9 Bipolar disorder, unspecified; I10 Essential (primary) hypertension; J45.909 Unspecified asthma, uncomplicated; K29.70 Gastritis, unspecified, without bleeding; K59.09 Other constipation; M06.9 Rheumatoid arthritis, unspecified; Z80.1 Family history of malignant neoplasm of trachea, bronchus and lung; Z98.51 Tubal ligation status

== ENCOUNTER 2018-01-24 12:16 | Emergency (ER) | payer MEDICARE ==
[2018-01-24 12:21] VITALS: RESP 18
[2018-01-24 12:23] VITALS: BMI 37.3
[2018-01-24] MEDS ORDERED: Sodium Chloride 0.9% 1,000 ML IV ONE (12:48)
[2018-01-24] MEDS ORDERED: Sodium Chloride 0.9% 1,000 ML ONE (12:57)
--- NOTE | 2018-01-24 13:47 | C.PDOC ---
History Of Present Illness 47 year old female presents to the ED for evaluation of frontal headache, pressure-like sensation to bilateral eyes, nasal congestion, cough and sore throat since this morning. Patient has not taken any medication for her symptoms and denies fever, chills. Time Seen by Provider: 01/24/18 12:45 Chief Complaint (Nursing): Headache History Per: Patient History/Exam Limitations: no limitations Onset/Duration Of Symptoms: Hrs Current Symptoms Are (Timing): Still Present Quality: Pressure, "Pain" Additional History Per: Patient Past Medical History Reviewed: Historical Data, Nursing Documentation, Vital Signs Vital Signs: Last Vital Signs Temp 97.6 F 01/24/18 12:20 Pulse 97 H 01/24/18 12:20 Resp 18 01/24/18 12:20 BP 168/82 H 01/24/18 12:20 Pulse Ox 96 01/24/18 12:20 - Medical History PMH: Anemia, Anxiety, Arthritis, Asthma, Back Problems, Bipolar Disorder, Depression, HTN, Malignancy (Colon), Rheumatoid Arthritis, Schizophrenia Denies: Chronic Kidney Disease Surgical History: No Surg Hx - [facility] Procedures CLOSED ENDOSCOPIC BIOPSY OF LARGE INTESTINE (05/23/14) COLONOSCOPY (08/12/14) DX ULTRASOUND-ABDOMEN (05/23/14) EXCISION OF STOMACH, ENDO, DIAGN (01/13/18) INSERTION OF TOTALLY IMPLANTABLE VASC ACCESS DEVIC (05/23/14) LAPAROSCOP LYSIS-PERITONEAL ADHES (05/23/14) LAPAROSCOPIC SIGMOIDECTOMY (05/23/14) OTHER ENDOSCOPY OF SM INTEST (05/23/14) PACKED CELL TRANSFUSION (05/23/14) PERCUTAN NEEDLE BX OF LIVER (05/23/14) REMOVAL OF VAD FROM TRUNK SUBCU/FASCIA, PERC APPROACH (03/16/15) Family History: States: Unknown Family Hx - Social History Hx Tobacco Use: No Hx Alcohol Use: No Hx Substance Use: No - Immunization History Hx Tetanus Toxoid Vaccination: No Hx Influenza Vaccination: Yes Hx Pneumococcal Vaccination: No Review Of Systems Constitutional: Negative for: Fever, Chills Eyes: Positive for: Other (pressure to bilateral eyes ) ENT: Positive for: Nose Congestion Respiratory: Positive for: Cough Neurological: Positive for: Headache (frontal ) Physical Exam - Physical Exam Appears: Non-toxic, No Acute Distress Skin: Normal Color, Warm, Dry Head: Atraumatic, Normacephalic, No Tenderness (sinus ) Eye(s): bilateral: Normal Inspection Ear(s): Bilateral: Normal Nose: Discharge (clear ) Oral Mucosa: Moist Throat: Normal, No Erythema, No Exudate Neck: Supple Chest: Symmetrical Cardiovascular: Rhythm Regular, No Murmur Respiratory: Normal Breath Sounds, No Wheezing Extremity: Normal ROM Neurological/Psych: Oriented x3, Normal Speech Gait: Steady ED Course And Treatment O2 Sat by Pulse Oximetry: 96 (on RA) Pulse Ox Interpretation: Normal Medical Decision Making Medical Decision Making: Impression: 47 year old female with frontal headache, eye pressure, nasal congestion, cough and sore throat Plan: * Reglan IV * IV fluids Progress: Reglan IV and IV Fluids given. On reassessment, patient is resting comfortably, showing no signs of distress and reports an improvement in her symptoms. Patient is tolerating PO intake, ambulatory in the ED with a steady gait and has a negative neurological exam. She is stable for discharge and is advised to follow up with PMD within 1-2 days for further evaluation. Advised to return to the ED if symptoms persist or worsen. 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 - Scribe Statement The provider has reviewed the documentation as recorded by the Scribe (Jana Harris) All medical record entries made by the Scribe were at my direction and personally dictated by me. I have reviewed the chart and agree that the record accurately reflects my personal performance of the history, physical exam, medical decision making, and the department course for this patient. I have also personally directed, reviewed, and agree with the discharge instructions and disposition.
[2018-01-24 13:59] VITALS: BP 142/90; PULSE 87; TEMP 99.2
[2018-01-24 15:26] VITALS: O2SAT 96
== END 2018-01-24 13:59 | disposition home or self-care (01) ==
LOC: C.ER 12:16
DX: R51 Headache (principal); I10 Essential (primary) hypertension
CPT/HCPCS: 96365; 99285; J2765; J7030

== ENCOUNTER 2018-02-01 09:50 | Emergency (ER) | payer MEDICARE ==
[2018-02-01 09:50] VITALS: BMI 37.3
[2018-02-01 10:14] VITALS: RESP 18; O2SAT 98
[2018-02-01] MEDS ORDERED: Albuterol-Ipratrop 3 mg / 0.5 (3 ml) UD INH STA (10:38)
--- NOTE | 2018-02-01 10:42 | C.PDOC ---
History Of Present Illness 47 year old female presents to ED for evaluation of mid sternal left sided chest pain described as tightness since this morning. Notes pain radiates to left shoulder. She also complains of non-productive cough and congestion for the last few days. She was seen here last week for similar without improvement. Notes she took Oxycodone for her chronic pain but continues to have pain still. She is requesting breakfast. Otherwise, denies shortness of breath, palpitations, lightheadedness, or any other associated symptoms at this time. Time Seen by Provider: 02/01/18 10:24 Chief Complaint (Nursing): Chest Pain History Per: Patient History/Exam Limitations: no limitations Onset/Duration Of Symptoms: Days Current Symptoms Are (Timing): Still Present Recent travel outside of the [place]: No Additional History Per: Patient Past Medical History Reviewed: Historical Data, Nursing Documentation, Vital Signs Vital Signs: Last Vital Signs Temp 98.2 F 02/01/18 09:58 Pulse 81 02/01/18 09:58 Resp 18 02/01/18 09:58 BP 148/99 H 02/01/18 09:58 Pulse Ox 98 02/01/18 09:58 - Medical History PMH: Anemia, Anxiety, Arthritis, Asthma, Back Problems, Bipolar Disorder, Depression, HTN, Malignancy (Colon), Rheumatoid Arthritis, Schizophrenia - [facility] Procedures CLOSED ENDOSCOPIC BIOPSY OF LARGE INTESTINE (05/23/14) COLONOSCOPY (08/12/14) DX ULTRASOUND-ABDOMEN (05/23/14) EXCISION OF STOMACH, ENDO, DIAGN (01/13/18) INSERTION OF TOTALLY IMPLANTABLE VASC ACCESS DEVIC (05/23/14) LAPAROSCOP LYSIS-PERITONEAL ADHES (05/23/14) LAPAROSCOPIC SIGMOIDECTOMY (05/23/14) OTHER ENDOSCOPY OF SM INTEST (05/23/14) PACKED CELL TRANSFUSION (05/23/14) PERCUTAN NEEDLE BX OF LIVER (05/23/14) REMOVAL OF VAD FROM TRUNK SUBCU/FASCIA, PERC APPROACH (03/16/15) Family History: States: Unknown Family Hx - Social History Hx Tobacco Use: No Hx Alcohol Use: No Hx Substance Use: No - Immunization History Hx Tetanus Toxoid Vaccination: No Hx Influenza Vaccination: Yes Hx Pneumococcal Vaccination: No Review Of Systems Except As Marked, All Systems Reviewed And Found Negative. Constitutional: Negative for: Fever, Chills ENT: Positive for: Nose Congestion Cardiovascular: Positive for: Chest Pain. Negative for: Palpitations Respiratory: Positive for: Cough. Negative for: Shortness of Breath Gastrointestinal: Negative for: Nausea, Vomiting, Abdominal Pain Neurological: Negative for: Headache, Dizziness Physical Exam - Physical Exam Appears: Non-toxic, No Acute Distress Skin: Normal Color, Warm, Dry Head: Atraumatic, Normacephalic Eye(s): bilateral: Normal Inspection Oral Mucosa: Moist Neck: Normal ROM, Supple Chest: Symmetrical, Tenderness (reproducible anterior chest wall tenderness) Cardiovascular: Rhythm Regular, No Murmur Respiratory: Normal Breath Sounds, No Rales, No Rhonchi, No Wheezing Gastrointestinal/Abdominal: Soft, No Tenderness Extremity: Normal ROM (FROM of left shoulder), No Tenderness, No Deformity, No Swelling Neurological/Psych: Oriented x3, Normal Speech ED Course And Treatment ECG: Interpreted By Me, Viewed By Me ECG Rhythm: Sinus Rhythm ECG Interpretation: No Acute Changes, No Changes From Prior Rate From EC O2 Sat by Pulse Oximetry: 98 (on RA) Pulse Ox Interpretation: Normal Medical Decision Making Medical Decision Making: Impression: pleuritic chest pain Plan: * EKG * CXR * Duoneb * Motrin Progress: EKG reviewed by ED attending and myself with no STEMI or acute changes. CXR ordered and reviewed showing normal cardiac silhoutte, no atelectasis, pleural effusion or infiltrates. Patient was treated with Motrin and duoneb. On re-evaluation the patient was resting comfortably in no distress. She still asking for food and beverage. Patient is stable for discharge. Disposition Counseled Patient/Family Regarding: Diagnosis, Need For Followup, Rx Given - Disposition Referrals: Rosaura Harris MD [Staff Provider] - Disposition: HOME/ ROUTINE Disposition Time: 11:21 Condition: IMPROVED Additional Instructions: You were evaluated in the ED today and treated for your symptoms. EKG and Chest xray normal. 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 - Scribe Statement The provider has reviewed the documentation as recorded by the Scribe Elias Harris All medical record entries made by the Christopheribirasema were at my direction and personally dictated by me. I have reviewed the chart and agree that the record accurately reflects my personal performance of the history, physical exam, medical decision making, and the department course for this patient. I have also personally directed, reviewed, and agree with the discharge instructions and disposition.
[2018-02-01] MEDS ORDERED: Albuterol-Ipratrop 3 mg / 0.5 (3 ml) UD ONE (10:50)
[2018-02-01 11:08] VITALS: BP 154/99; PULSE 82; TEMP 97.8
--- NOTE | 2018-02-01 12:05 | RAD ---
Date of service: 02/01/2018 HISTORY: Cough and chest pain COMPARISON: 01/13/2018. TECHNIQUE: Chest PA and lateral FINDINGS: LINES AND TUBES: Right-sided MediPort terminates at the cavoatrial junction. LUNG AND PLEURA: The lungs are well inflated and clear. No pleural effusion or pneumothorax. HEART AND MEDIASTINUM: The heart is not enlarged. No aortic atherosclerotic calcification present. The hilar and mediastinal contours are within normal limits. SKELETAL STRUCTURES: The bony structures are within normal limits for the patient's age. VISUALIZED UPPER ABDOMEN: Normal. OTHER FINDINGS: None. IMPRESSION: No active pulmonary disease.
--- NOTE | 2018-02-03 15:06 | CARD ---
APPROVED REPORT Date of service: 02/01/2018 EKG Measurement Heart [id number] [id number] <Conclusion> Normal sinus rhythm Cannot rule out Anterior infarct, age undetermined Abnormal ECG
== END 2018-02-01 12:00 | disposition home or self-care (01) ==
LOC: C.ER 09:50
DX: R07.81 Pleurodynia (principal); J06.9 Acute upper respiratory infection, unspecified; I10 Essential (primary) hypertension; F20.9 Schizophrenia, unspecified; M06.9 Rheumatoid arthritis, unspecified

== ENCOUNTER 2018-02-03 10:45 | Emergency (ER) | payer MEDICARE ==
[2018-02-03 10:45] VITALS: BMI 37.3
[2018-02-03 10:50] VITALS: TEMP 97.8
[2018-02-03] MEDS ORDERED: Sodium Chloride 0.9% 1,000 ML IV ONE (11:34)
[2018-02-03 11:56] LABS: BASO % 0.6 % (0.0-2.0); EOS % 0.2 % (0.0-4.0); HEMOGLOBIN 12.1 g/dL (11.0-16.0); LYMPH % 25.5 % (20.0-40.0); MEAN CORPUSCULAR HEMOGLOBIN 27.7 pg (27.0-31.0); MEAN CORPUSCULAR HGB CONC 33.8 g/dL (33.0-37.0); MEAN PLATELET VOLUME 8.2 fL (7.2-11.7); MONO # 0.3 K/uL (0.0-0.8); MONO % 6.6 % (0.0-10.0); NEUT # 2.6 K/uL (1.8-7.0); NEUT % 67.1 % (50.0-75.0); NRBC % 0.1 % (0.0-2.0); RBC 4.35 Mil/uL (3.80-5.20); RED CELL DISTRIBUTION WIDTH 18.4 % (11.5-14.5); WHITE BLOOD COUNT 3.8 K/uL (4.8-10.8)
[2018-02-03 11:59] LABS: MEAN CELL VOLUME 82.2 fL (81.0-99.0)
[2018-02-03 12:04] LABS: INR 1.3; PROTHROMBIN TIME 13.7 SECONDS (9.7-12.2)
[2018-02-03 12:05] LABS: SQUAMOUS EPITHIAL < 1 /hpf (0-5); URINE BILIRUBIN NEGATIVE (NEGATIVE); URINE BLOOD NEGATIVE (NEGATIVE); URINE CLARITY Clear (Clear); URINE COLOR Straw (YELLOW); URINE GLUCOSE (UA) NORMAL (Normal); URINE LEUKOCYTE ESTERASE TRACE Leu/uL (Negative); URINE PROTEIN NEGATIVE (NEGATIVE); URINE UROBILINOGEN NORMAL mg/dL (0.2-1.0)
[2018-02-03 12:21] LABS: ALB/GLOB RATIO 1.2 (1.0-2.1); ALBUMIN 4.1 g/dL (3.5-5.0); ALT/SGPT 30 U/L (9-52); AST/SGOT 30 U/L (14-36); BLOOD UREA NITROGEN 7 mg/dL (7-17); CALCIUM 9.1 mg/dl (8.6-10.4); GFR NON-AFRICAN AMERICAN > 60
[2018-02-03 12:30] LABS: BARBITURATES, UR NEGATIVE (NEGATIVE); BENZODIAZEPINES, UR NEGATIVE (NEGATIVE); OPIATES, UR NEGATIVE (NEGATIVE); PHENCYCLIDINE, UR NEGATIVE (NEGATIVE)
[2018-02-03 12:37] VITALS: O2SAT 100
--- NOTE | 2018-02-03 12:54 | CT ---
Date of service: 02/03/2018 PROCEDURE: CT HEAD WITHOUT CONTRAST. HISTORY: Headache in a patient with a history of metastatic carcinoma COMPARISON: Comparison made with prior CT CT scan and CTA brain both dated 11/18/2017. TECHNIQUE: Axial computed tomography images were obtained through the head/brain without intravenous contrast. Radiation dose: Total exam DLP = 2317.46 mGy-cm. This CT exam was performed using one or more of the following dose reduction techniques: Automated exposure control, adjustment of the mA and/or kV according to patient size, and/or use of iterative reconstruction technique. FINDINGS: HEMORRHAGE: No acute parenchymal subarachnoid or extra-axial hemorrhage. BRAIN: Suspect minimal chronic periventricular white matter ischemic changes. No evidence of obvious parenchymal nor extra-axial masses or collections seen to suggest metastasis however possibility of small metastatic lesions cannot be excluded on this exam. If there is any concern for a brain metastasis recommend follow-up pre and post-contrast MRI of the brain which is much more sensitive for detecting small early lesions that may not be evident on early CT imaging... Note is again made of a of at least 2 small elliptical shaped extra-axial calcifications arising from the inner table of the left temporal lobe that could represent dural base calcification versus tiny incidental meningiomas. Clinical correlation recommended. Mild volume loss which appears somewhat more central evidenced by slight disproportionate enlargement of the ventricles compared the sulci. VENTRICLES: No obstructive hydrocephalus. CALVARIUM: Unremarkable. PARANASAL SINUSES: Unremarkable as visualized. No significant inflammatory changes. MASTOID AIR CELLS: Unremarkable as visualized. No inflammatory changes. OTHER FINDINGS: None. IMPRESSION: No evidence to suggest metastases at this time however note the possibility of small metastatic lesions cannot be completely excluded on non contrast imaging which is less sensitive for detecting early metastases. If brain metastasis suspected clinically recommend follow-up pre and post-contrast MRI of the brain which is much more sensitive for detecting small metastatic lesions. Small extra-axial calcifications left middle cranial fossa could represent dural based calcifications however possibility of small incidental meningiomas not completely excluded. Mild central volume loss.
--- NOTE | 2018-02-03 13:08 | C.PDOC ---
History Of Present Illness 47 year old female w/PMhx of Bipolar, Lung and colon CA, presents to the ED for evaluation of frontal headache, pressure-like sensation to bilateral eyes since this morning. Patient admits, has not taken her anxiety medication " ran out of it for past few weeks, KLonopin and Risperdal". patient admits, similar sx in past, was seen here in ED few times in past. Pt denies high fever, chills, denies blurry vision, double vision, floaters, denies worse headache of life, denies focal deficits, neck pain, CP, SOB, dyspnea, diaphoresis, palpitation, abd. pain, V/D, denies weakness, sensory or vascular deficits to B/L UEs and lEs. A the time of evaluation, appears not in nay apparent distress. FYI: Pt was seen here in ED multiple times. Last visits were on 01/24/18 due to headache and 02/01/18 due to cough. Time Seen by Provider: 02/03/18 10:57 Chief Complaint (Nursing): Headache History Per: Patient Past Medical History Reviewed: Historical Data, Nursing Documentation, Vital Signs Vital Signs: Last Vital Signs Temp 97.8 F 02/03/18 10:46 Pulse 80 02/03/18 12:36 Resp 20 02/03/18 12:36 BP 156/78 H 02/03/18 12:36 Pulse Ox 100 02/03/18 12:36 - Medical History PMH: Anemia, Anxiety, Arthritis, Asthma, Back Problems, Bipolar Disorder, Depression, HTN, Malignancy (Colon), Rheumatoid Arthritis, Schizophrenia Denies: [facility] CLOSED ENDOSCOPIC BIOPSY OF LARGE INTESTINE (05/23/14) COLONOSCOPY (08/12/14) DX ULTRASOUND-ABDOMEN (05/23/14) EXCISION OF STOMACH, ENDO, DIAGN (01/13/18) INSERTION OF TOTALLY IMPLANTABLE VASC ACCESS DEVIC (05/23/14) LAPAROSCOP LYSIS-PERITONEAL ADHES (05/23/14) LAPAROSCOPIC SIGMOIDECTOMY (05/23/14) OTHER ENDOSCOPY OF SM INTEST (05/23/14) PACKED CELL TRANSFUSION (05/23/14) PERCUTAN NEEDLE BX OF LIVER (05/23/14) REMOVAL OF VAD FROM TRUNK SUBCU/FASCIA, PERC APPROACH (03/16/15) Family History: States: Unknown Family Hx - Social History Hx Tobacco Use: No Hx Alcohol Use: No Hx Substance Use: No - Immunization History Hx Tetanus Toxoid Vaccination: No Hx Influenza Vaccination: Yes Hx Pneumococcal Vaccination: No Review Of Systems Except As Marked, All Systems Reviewed And Found Negative. Constitutional: Negative for: Fever, Chills Eyes: Negative for: Vision Change ENT: Negative for: Ear Discharge, Nose Discharge Cardiovascular: Negative for: Chest Pain, Palpitations, Edema, Light Headedness Respiratory: Negative for: Cough, Shortness of Breath, Wheezing Gastrointestinal: Negative for: Nausea, Vomiting, Abdominal Pain Genitourinary: Negative for: Dysuria Musculoskeletal: Negative for: Neck Pain, Back Pain Neurological: Positive for: Headache. Negative for: Weakness, Numbness, Altered Mental Status, Dizziness Physical Exam - Physical Exam Appears: Well, Non-toxic, No Acute Distress Skin: Normal Color, Warm, Dry, No Rash Head: Normacephalic Eye(s): bilateral: PERRL, EOMI Ear(s): Left: Normal, Bilateral: Normal Nose: No Flaring Oral Mucosa: Moist Throat: No Drooling Neck: Trachea Midline, Supple Cardiovascular: Rhythm Regular, No Murmur, No JVD Respiratory: No Decreased Breath Sounds, No Accessory Muscle Use, No Stridor, No Wheezing Gastrointestinal/Abdominal: Soft, No Tenderness, No Distention, No Guarding Back: No CVA Tenderness Extremity: Normal ROM, No Pedal Edema, No Deformity, No Swelling Neurological/Psych: Oriented x3, Normal Speech, Normal Motor, Normal Sensation, Normal Reflexes ED Course And Treatment - Laboratory Results Result Diagrams: 02/03/18 11:50 02/03/18 11:50 Lab Interpretation: No Changes Compared To Prior Results O2 Sat by Pulse Oximetry: 100 Pulse Ox Interpretation: Normal - CT Scan/US CT head w/o contrast Other Rad Studies (CT/US): Radiology Report Reviewed CT/US Interpretation: Dictator : Brendon Thapa MD. Tile Designer : Life Assurance Representative : Brendon Thapa MD. Approver2 : Report Date : 02/03/2018 12:20:50. My Comment : . This report is currently processing and HAS NOT BEEN OFFICIALLY SIGNED BY THE PHYSICIAN - ESTIMATED TIME OF APPROVAL IS 02/03/2018 12:55. Date of service: 02/03/2018. PROCEDURE: CT HEAD WITHOUT CONTRAST. HISTORY: Headache in a patient with a history of metastatic carcinoma. COMPARISON: Comparison made with prior CT CT scan and CTA brain both dated 11/18/2017. TECHNIQUE: Axial computed tomography images were obtained through the head/brain without intravenous contrast. Radiation dose: Total exam DLP = 2317.46 mGy-cm. This CT exam was performed using one or more of the following dose reduction techniques: Automated exposure control, adjustment of the mA and/or kV according to patient size, and/or use of iterative reconstruction technique. FINDINGS: HEMORRHAGE: No acute parenchymal subarachnoid or extra-axial hemorrhage. BRAIN: Suspect minimal chronic periventricular white matter ischemic changes. No evidence of obvious parenchymal nor extra-axial masses or collections seen to suggest metastasis however possibility of small metastatic lesions cannot be excluded on this exam. If there is any concern for a brain metastasis recommend follow-up pre and post-contrast MRI of the brain which is much more sensitive for detecting small early lesions that may not be evident on early CT imaging... Note is again made of a of at least 2 small elliptical shaped extra-axial calcifications arising from the inner table of the left temporal lobe that could represent dural base calcification versus tiny incidental meningiomas. Clinical correlation recommended. Mild volume loss which appears somewhat more central evidenced by slight disproportionate enlargement of the ventricles compared the sulci. VENT RICLES: No obstructive hydrocephalus. CALVARIUM: Unremarkable. PARANASAL SINUSES: Unremarkable as visualized. No significant inflammatory changes. MASTOID AIR CELLS: Unremarkable as visualized. No inflammatory changes. OTHER FINDINGS: None. IMPRESSION: No evidence to suggest metastases at this time however note the possibility of small metastatic lesions cannot be completely excluded on non contrast imaging which is less sensitive for detecting early metastases. If brain metastasis suspected clinically recommend follow-up pre and post-contrast MRI of the brain which is much more sensitive for detecting small metastatic lesions. Small extra-axial calcifications left middle cranial fossa could represent dural based calcifications however possibility of small incidental meningiomas not completely excluded. Mild central volume loss. Progress Note: On re-eval, pt is afebrile, hemodynamicaly stable. Non-toxic. Ambulatory in Ed with stable gait. Tolerate Po well in ED.,. Head: AT/NC. Neck: supple, (-) JVD, (-)carotid vruits B/L. Lungs: CTA B/L, BS equal B/L. CVS: (+)S1S2, reg. Abd: benign. neuorlogicaly intact. Blood owrk review and appears baseline. CT head: no acute findings. Pt has clinical findings c/w headache, noc. Hx of bipolar, ran out of benzo r/o withdrawal headache. Pt advised to F/U with PMD, neuorlogy and Psych in 1-2 days for re-eavl. return if any new changes. Disposition Counseled Patient/Family Regarding: Studies Performed, Diagnosis, Need For Followup - Disposition Referrals: Rosaura Harris MD [Staff Provider] - Shaik Saxena MD [Staff Provider] - Disposition: HOME/ ROUTINE Disposition Time: 12:53 Condition: STABLE Instructions: Headache, Adult Forms: [facility] (Prydeinig) - Clinical Impression Clinical Impression: Headache
[2018-02-03 14:35] VITALS: BP 138/76; PULSE 87; RESP 18
== END 2018-02-03 14:35 | disposition home or self-care (01) ==
LOC: C.ER 10:45
DX: R51 Headache (principal)
CPT/HCPCS: 70450; 80053; 81001; 82550; 85025; 85610; 85730; 96361; 96374; 99285; G0480; J1885; J7030

== ENCOUNTER 2018-02-04 14:06 | Emergency (ER) | payer MEDICARE ==
[2018-02-04 14:06] VITALS: BMI 37.3
[2018-02-04 14:17] VITALS: BP 156/101; PULSE 100; RESP 18; TEMP 98.1; O2SAT 98
--- NOTE | 2018-02-04 15:04 | C.PDOC ---
History Of Present Illness 47 year old female presents to the ED with complaint of blood per rectum which began today. This current visit is patient's third ED visit within the past 5 days. Patient think she is actively being treated for colon cancer. She denies history of hemorrhoids. She denies fever, chills, vaginal bleeding. Patient's LMP was 4 years ago. Time Seen by Provider: 02/04/18 14:55 Chief Complaint (Nursing): GI Problem History Per: Patient History/Exam Limitations: no limitations Onset/Duration Of Symptoms: Hrs Current Symptoms Are (Timing): Still Present Additional History Per: Patient Past Medical History Reviewed: Historical Data, Nursing Documentation, Vital Signs Vital Signs: Last Vital Signs Temp 98.1 F 02/04/18 14:16 Pulse 100 H 02/04/18 14:16 Resp 18 02/04/18 14:16 BP 156/101 H 02/04/18 14:16 Pulse Ox 98 02/04/18 14:16 - Medical History PMH: Anemia, Anxiety, Arthritis, Asthma, Back Problems, Bipolar Disorder, Depression, HTN, Malignancy (Colon), Rheumatoid Arthritis, Schizophrenia Denies: Chronic Kidney Disease Surgical History: No Surg Hx - [facility] Procedures CLOSED ENDOSCOPIC BIOPSY OF LARGE INTESTINE (05/23/14) COLONOSCOPY (08/12/14) DX ULTRASOUND-ABDOMEN (05/23/14) EXCISION OF STOMACH, ENDO, DIAGN (01/13/18) INSERTION OF TOTALLY IMPLANTABLE VASC ACCESS DEVIC (05/23/14) LAPAROSCOP LYSIS-PERITONEAL ADHES (05/23/14) LAPAROSCOPIC SIGMOIDECTOMY (05/23/14) OTHER ENDOSCOPY OF SM INTEST (05/23/14) PACKED CELL TRANSFUSION (05/23/14) PERCUTAN NEEDLE BX OF LIVER (05/23/14) REMOVAL OF VAD FROM TRUNK SUBCU/FASCIA, PERC APPROACH (03/16/15) Family History: States: Unknown Family Hx - Social History Hx Tobacco Use: No Hx Alcohol Use: No Hx Substance Use: No - Immunization History Hx Tetanus Toxoid Vaccination: No Hx Influenza Vaccination: Yes Hx Pneumococcal Vaccination: No Review Of Systems Constitutional: Negative for: Fever, Chills Gastrointestinal: Positive for: Other (rectal bleeding ) Physical Exam - Physical Exam Appears: Non-toxic, No Acute Distress, Other (obese white female ) Skin: Normal Color, Warm, Dry Head: Atraumatic, Normacephalic Eye(s): bilateral: Normal Inspection Neck: Supple Rectal: Other (no blood in anus, or in urine sample. Sweet Dough Mixer: arnulfo ) Extremity: Normal ROM Neurological/Psych: Other (bizarre affect) ED Course And Treatment O2 Sat by Pulse Oximetry: 98 (on RA) Pulse Ox Interpretation: Normal Medical Decision Making Medical Decision Making: NO blood per rectum nor urine, nor vagina pt comes to ED every other day recently ? good biplar meds control normal workup 2 days ago ok to f/u w PMD/GI Disposition Doctor Will See Patient In The: Office Counseled Patient/Family Regarding: Studies Performed, Diagnosis - Disposition Referrals: Shaik Saxena MD [Staff Provider] - Disposition: HOME/ ROUTINE Disposition Time: 15:03 Condition: GOOD Additional Instructions: there is NO blood in your stool today please follow-up with your PMD or GI as needed. normal labs 2 days ago, HGB 12 Forms: General Discharge Instructions, [facility] (Maldivian) - Clinical Impression Clinical Impression: Blood in stool - Scribe Statement The provider has reviewed the documentation as recorded by the Scribe (Jana Harris) Provider Attestation: All medical record entries made by the Scribe were at my direction and personally dictated by me. I have reviewed the chart and agree that the record accurately reflects my personal performance of the history, physical exam, medical decision making, and the department course for this patient. I have also personally directed, reviewed, and agree with the discharge instructions and disposition.
== END 2018-02-04 15:28 | disposition home or self-care (01) ==
LOC: C.ER 14:06
DX: K92.1 Melena (principal)

== ENCOUNTER 2018-02-07 09:52 | Emergency (ER) | payer MEDICARE ==
[2018-02-07 09:53] VITALS: BMI 37.3
[2018-02-07 10:02] VITALS: O2SAT 97
--- NOTE | 2018-02-07 10:04 | C.PDOC ---
History Of Present Illness 47 y/o female with history of metastatic colon cancer s/p sigmoid resection and chemo, chronic constipation, bipolar disorder SP ENDOSCOPY 12/2017 presents to ED with c/o recurrent hematemesis since yesterday, reports last episode this morning. Patient was discharged from hospital on 01/17 status post GI bleeding, Hematemesis and had endoscopy that showed mild gastritis. Patient states she is compliant with Psych medication and was not complaint with GI follow up or [facility] secondary to transportation issues and "they do not take her insurance". Patient has multiple ED visits for various pain complaints and is not currently on GI medications. Patient denies fever, chills, dizziness, diarrhea, abdominal pain or any other complaints at this time. hx of metastatic colon cancer s/p sigmoid resection and chemo, chronic constipation, bipolar disorder SP ENDOSCOPY 12/2017 Time Seen by Provider: 02/07/18 10:00 Chief Complaint (Nursing): GI Problem History Per: Patient History/Exam Limitations: no limitations Onset/Duration Of Symptoms: Days Current Symptoms Are (Timing): Still Present Past Medical History Reviewed: Historical Data, Nursing Documentation, Vital Signs Vital Signs: Last Vital Signs Temp 97.6 F 02/07/18 09:57 Pulse 84 02/07/18 09:57 Resp 19 02/07/18 09:57 BP 150/84 02/07/18 09:57 Pulse Ox 97 02/07/18 09:57 - Medical History PMH: Anemia, Anxiety, Arthritis, Asthma, Back Problems, Bipolar Disorder, Depression, HTN, Malignancy (Colon), Rheumatoid Arthritis, Schizophrenia Surgical History: No Surg Hx - [facility] Procedures CLOSED ENDOSCOPIC BIOPSY OF LARGE INTESTINE (05/23/14) COLONOSCOPY (08/12/14) DX ULTRASOUND-ABDOMEN (05/23/14) EXCISION OF STOMACH, ENDO, DIAGN (01/13/18) INSERTION OF TOTALLY IMPLANTABLE VASC ACCESS DEVIC (05/23/14) LAPAROSCOP LYSIS-PERITONEAL ADHES (05/23/14) LAPAROSCOPIC SIGMOIDECTOMY (05/23/14) OTHER ENDOSCOPY OF SM INTEST (05/23/14) PACKED CELL TRANSFUSION (05/23/14) PERCUTAN NEEDLE BX OF LIVER (05/23/14) REMOVAL OF VAD FROM TRUNK SUBCU/FASCIA, PERC APPROACH (03/16/15) Family History: States: No Known Family Hx - Social History Hx Tobacco Use: No Hx Alcohol Use: No Hx Substance Use: No - Immunization History Hx Tetanus Toxoid Vaccination: No Hx Influenza Vaccination: Yes Hx Pneumococcal Vaccination: No Review Of Systems Constitutional: Negative for: Fever, Chills Gastrointestinal: Positive for: Vomiting, Hematemesis. Negative for: Nausea, Abdominal Pain, Diarrhea, Hematochezia Physical Exam - Physical Exam Appears: Non-toxic, No Acute Distress Skin: Warm, Dry, No Rash Head: Atraumatic, Normacephalic Eye(s): bilateral: Normal Inspection Oral Mucosa: Moist Neck: Normal ROM, Supple Cardiovascular: Rhythm Regular Respiratory: Normal Breath Sounds, No Rales, No Rhonchi, No Wheezing Gastrointestinal/Abdominal: Soft, No Tenderness, No Guarding, No Rebound Back: No CVA Tenderness Extremity: Normal ROM, No Pedal Edema, Capillary Refill (<2 seconds) Neurological/Psych: Oriented x3, Normal Speech, Normal Cognition ED Course And Treatment - Laboratory Results Result Diagrams: 02/07/18 10:24 02/07/18 10:24 O2 Sat by Pulse Oximetry: 97 (RA) Pulse Ox Interpretation: Normal Progress - Re-Evaluation Re-evaluation Note: 02/07/18 11:39 PT NOTED TO BE ON CELLPHONE, COMFORTABLE NAD. PS VOMITED BUT NO EVIDENCE OR WITNESS BY RN. CBC NO SIG CHANGE FROM PRIOR. VSS. ADVISED NEED FOR OUTPT FU 02/07/18 12:05 DR. Tila BIANCHI NOTIFIED - Data Reviewed Data Reviewed: Lab, Old records Disposition Counseled Patient/Family Regarding: Studies Performed, Diagnosis, Need For Followup - Disposition Referrals: YOUR,PMD [Other] Disposition: HOME/ ROUTINE Disposition Time: 11:39 Condition: GOOD Prescriptions: Ondansetron ODT [Zofran ODT] 4 mg PO TID PRN #12 odt PRN Reason: Nausea/Vomiting Instructions: Nausea and Vomiting, Adult (DC) Forms: [facility] (Panamanian) - Clinical Impression Clinical Impression: Vomiting, Noncompliance - Scribe Statement The provider has reviewed the documentation as recorded by the Scribirasema Hwang All medical record entries made by the Scribe were at my direction and personally dictated by me. I have reviewed the chart and agree that the record accurately reflects my personal performance of the history, physical exam, medical decision making, and the department course for this patient. I have also personally directed, reviewed, and agree with the discharge instructions and disposition.
[2018-02-07 10:33] LABS: BASO % 0.2 % (0.0-2.0); EOS % 0.6 % (0.0-4.0); HEMOGLOBIN 10.7 g/dL (11.0-16.0); LYMPH # 0.6 K/uL (1.0-4.3); MEAN CELL VOLUME 82.2 fL (81.0-99.0); MEAN CORPUSCULAR HEMOGLOBIN 27.1 pg (27.0-31.0); MEAN PLATELET VOLUME 8.2 fL (7.2-11.7); MONO # 0.2 K/uL (0.0-0.8); MONO % 7.5 % (0.0-10.0); NEUT # 1.9 K/uL (1.8-7.0); NEUT % 69.7 % (50.0-75.0); RBC 3.95 Mil/uL (3.80-5.20); RED CELL DISTRIBUTION WIDTH 18.4 % (11.5-14.5); WHITE BLOOD COUNT 2.7 K/uL (4.8-10.8)
[2018-02-07 10:45] LABS: ALB/GLOB RATIO 1.3 (1.0-2.1); ALBUMIN 3.7 g/dL (3.5-5.0); ALT/SGPT 23 U/L (9-52); AST/SGOT 27 U/L (14-36); BLOOD UREA NITROGEN 9 mg/dL (7-17); CALCIUM 8.8 mg/dl (8.6-10.4); GFR NON-AFRICAN AMERICAN > 60
[2018-02-07 12:08] VITALS: BP 140/79; PULSE 80; RESP 18; TEMP 97.8
== END 2018-02-07 12:08 | disposition home or self-care (01) ==
LOC: C.ER 09:52
DX: R11.10 Vomiting, unspecified (principal); Z91.19 Patient's noncompliance with other medical treatment and regimen

== ENCOUNTER 2018-03-01 10:36 | Observation (INO) | payer MEDICARE ==
[2018-03-01 10:36] VITALS: BMI 37.3
[2018-03-01 12:05] VITALS: RESP 20
[2018-03-01] MEDS ORDERED: Sodium Chloride 0.9% 1,000 ML IV STA (12:08)
[2018-03-01] MEDS ORDERED: Sodium Chloride 0.9% 1,000 ML ONE (12:17)
[2018-03-01] MEDS ORDERED: Morphine 4 MG/ML VIAL ONE (12:18)
[2018-03-01 12:51] LABS: BASO % 0.5 % (0.0-2.0); EOS % 1.2 % (0.0-4.0); LYMPH % 27.2 % (20.0-40.0); MEAN CELL VOLUME 81.5 fL (81.0-99.0); MEAN CORPUSCULAR HEMOGLOBIN 26.9 pg (27.0-31.0); MEAN PLATELET VOLUME 8.5 fL (7.2-11.7); MONO # 0.1 K/uL (0.0-0.8); MONO % 4.2 % (0.0-10.0); NEUT # 2.4 K/uL (1.8-7.0); NEUT % 66.9 % (50.0-75.0); RBC 4.08 Mil/uL (3.80-5.20); RED CELL DISTRIBUTION WIDTH 17.8 % (11.5-14.5); WHITE BLOOD COUNT 3.6 K/uL (4.8-10.8)
[2018-03-01 12:55] LABS: INR 1.1; PROTHROMBIN TIME 12.3 SECONDS (9.7-12.2)
[2018-03-01 13:00] LABS: ALB/GLOB RATIO 1.4 (1.0-2.1); ALBUMIN 3.6 g/dL (3.5-5.0); ALT/SGPT 34 U/L (9-52); AST/SGOT 33 U/L (14-36); BLOOD UREA NITROGEN 10 mg/dL (7-17); CALCIUM 8.8 mg/dl (8.6-10.4); GFR NON-AFRICAN AMERICAN > 60; LIPASE 39 U/L (23-300)
--- NOTE | 2018-03-01 14:03 | C.PDOC ---
History Of Present Illness 47 year old female with a history of metastatic colon cancer presents to the ED for evaluation of right upper quadrant abdominal pain that started today in the morning. The patient reports going to chemotherapy every 2 weeks. Denies fever, chills, and any other associated symptoms. Chief Complaint (Nursing): Abdominal Pain History Per: Patient History/Exam Limitations: no limitations Onset/Duration Of Symptoms: Hrs (prior to arrival. ) Current Symptoms Are (Timing): Still Present Recent travel outside of the [place]: No Past Medical History Reviewed: Historical Data, Nursing Documentation, Vital Signs Vital Signs: Last Vital Signs Temp 97.4 F L 03/01/18 10:39 Pulse 88 03/01/18 12:04 Resp 20 03/01/18 12:04 BP 151/96 H 03/01/18 12:04 Pulse Ox 99 03/01/18 12:04 - Medical History PMH: Anemia, Anxiety, Arthritis, Asthma, Back Problems, Bipolar Disorder, Depression, HTN, Malignancy (Colon), Rheumatoid Arthritis, Schizophrenia Denies: Chronic Kidney Disease - [facility] Procedures CLOSED ENDOSCOPIC BIOPSY OF LARGE INTESTINE (05/23/14) COLONOSCOPY (08/12/14) DX ULTRASOUND-ABDOMEN (05/23/14) EXCISION OF STOMACH, ENDO, DIAGN (01/13/18) INSERTION OF TOTALLY IMPLANTABLE VASC ACCESS DEVIC (05/23/14) LAPAROSCOP LYSIS-PERITONEAL ADHES (05/23/14) LAPAROSCOPIC SIGMOIDECTOMY (05/23/14) OTHER ENDOSCOPY OF SM INTEST (05/23/14) PACKED CELL TRANSFUSION (05/23/14) PERCUTAN NEEDLE BX OF LIVER (05/23/14) REMOVAL OF VAD FROM TRUNK SUBCU/FASCIA, PERC APPROACH (03/16/15) Family History: States: Unknown Family Hx - Social History Hx Tobacco Use: No Hx Alcohol Use: No Hx Substance Use: No - Immunization History Hx Tetanus Toxoid Vaccination: No Hx Influenza Vaccination: Yes Hx Pneumococcal Vaccination: No Review Of Systems Except As Marked, All Systems Reviewed And Found Negative. Constitutional: Negative for: Fever, Chills Gastrointestinal: Positive for: Abdominal Pain (right upper quadrant. ) Physical Exam - Physical Exam Appears: Well, Non-toxic, No Acute Distress Skin: Normal Color, Warm, Dry ED Course And Treatment - Laboratory Results Result Diagrams: 03/01/18 12:44 01/05/19 12:44 O2 Sat by Pulse Oximetry: 99 Disposition - Disposition
--- NOTE | 2018-03-01 14:09 | C.PDOC ---
History Of Present Illness 47 year old female with a history of metastatic colon cancer presents to the ED for evaluation of right upper quadrant abdominal pain that started today in the morning. The patient reports going to chemotherapy every 2 weeks. Denies fever, chills, and any other associated symptoms. Chief Complaint (Nursing): Abdominal Pain History Per: Patient History/Exam Limitations: no limitations Onset/Duration Of Symptoms: Hrs (prior to arrival) Current Symptoms Are (Timing): Still Present Location Of Pain/Discomfort: RUQ Recent travel outside of the [place]: No Past Medical History Reviewed: Historical Data, Nursing Documentation, Vital Signs Vital Signs: Last Vital Signs Temp 97.4 F L 03/01/18 10:39 Pulse 88 03/01/18 12:04 Resp 20 03/01/18 12:04 BP 151/96 H 03/01/18 12:04 Pulse Ox 99 03/01/18 12:04 - Medical History PMH: Anemia, Anxiety, Arthritis, Asthma, Back Problems, Bipolar Disorder, Depression, HTN, Malignancy (Colon), Rheumatoid Arthritis, Schizophrenia Denies: [facility] Procedures CLOSED ENDOSCOPIC BIOPSY OF LARGE INTESTINE (05/23/14) COLONOSCOPY (08/12/14) DX ULTRASOUND-ABDOMEN (05/23/14) EXCISION OF STOMACH, ENDO, DIAGN (01/13/18) INSERTION OF TOTALLY IMPLANTABLE VASC ACCESS DEVIC (05/23/14) LAPAROSCOP LYSIS-PERITONEAL ADHES (05/23/14) LAPAROSCOPIC SIGMOIDECTOMY (05/23/14) OTHER ENDOSCOPY OF SM INTEST (05/23/14) PACKED CELL TRANSFUSION (05/23/14) PERCUTAN NEEDLE BX OF LIVER (05/23/14) REMOVAL OF VAD FROM TRUNK SUBCU/FASCIA, PERC APPROACH (03/16/15) Family History: States: Unknown Family Hx - Social History Hx Tobacco Use: No Hx Alcohol Use: No Hx Substance Use: No - Immunization History Hx Tetanus Toxoid Vaccination: No Hx Influenza Vaccination: Yes Hx Pneumococcal Vaccination: No Review Of Systems Except As Marked, All Systems Reviewed And Found Negative. Constitutional: Negative for: Fever, Chills Gastrointestinal: Positive for: Abdominal Pain (RUQ) Physical Exam - Physical Exam Appears: Well, Non-toxic, No Acute Distress Skin: Normal Color, Warm, Dry Head: Atraumatic, Normacephalic Eye(s): bilateral: Normal Inspection Oral Mucosa: Moist Neck: Normal ROM Chest: Symmetrical Cardiovascular: Rhythm Regular, No Murmur Respiratory: Normal Breath Sounds, No Rales, No Rhonchi, No Wheezing Gastrointestinal/Abdominal: Soft, Tenderness (RUQ) Extremity: Bilateral: Atraumatic, Normal Color And Temperature, Normal ROM Neurological/Psych: Oriented x3, Normal Speech, Normal Cognition ED Course And Treatment - Laboratory Results Result Diagrams: 03/01/18 12:44 03/01/18 12:44 O2 Sat by Pulse Oximetry: 99 (RA) Pulse Ox Interpretation: Normal - CT Scan/US US ABD Other Rad Studies (CT/US): Read By Radiologist CT/US Interpretation: FINDINGS: LIVER: Measures 19.3 cm in length. Echogenic liver may be seen in setting of hepatic parenchymal disease or fatty infiltration. Heterogeneous 5.4 x 3.9 x 5.0 cm hepatic mass demonstrated. Additional masses demonstrated on CT abdomen and pelvis with contrast performed 01/13/18 are not appreciated on this limited study. The main portal vein appears patent with normal directional flow. No intrahepatic bile duct dilatation. GALLBLADDER: No gallstones. No gallbladder wall thickening or pericholecystic edema. Negative sonographic Peguero's sign as assessed by the geometry tutor. COMMON BILE DUCT: Measures 4 mm. PANCREAS: Not well-visualized. RIGHT KIDNEY: Measures approximately 10.3 x 4.3 x 4.5 cm. No obstructing calculus or hydronephrosis identified. AORTA: Limited visualization appears grossly unremarkable. IVC: Limited visualization appears grossly unremarkable. OTHER FINDINGS: None . IMPRESSION: Limited study. Hepatomegaly. Echogenic liver may be seen in setting of hepatic parenchymal disease or fatty infil tration. 5.4 x 3.9 x 5 cm hepatic mass. Additional known hepatic masses demonstrated by CT are not appreciated on this limited study. Additional incidental findings as above. Progress Note: On re-evaluation patient still feels worse. Patient's PMD was contacted and accepted patient to his service for observation. Medical Decision Making Medical Decision Making: Plan: -Blood sent. -Morphine -Protonix -Zofran -Urinalysis -US ABD Limited Disposition - Disposition Disposition: HOSPITALIZED Disposition Time: 16:46 Condition: FAIR - Clinical Impression Clinical Impression: Colon cancer metastasized to liver, Intractable abdominal pain - PA / ANALOG CIRCUIT DESIGNER / Resident Statement MD/DO has reviewed & agrees with the documentation as recorded. - Scribe Statement The provider has reviewed the documentation as recorded by the Scribe (Sue Contreras) All medical record entries made by the Scribe were at my direction and personally dictated by me. I have reviewed the chart and agree that the record accurately reflects my personal performance of the history, physical exam, medical decision making, and the department course for this patient. I have also personally directed, reviewed, and agree with the discharge instructions and disposition. Decision To Admit - Pt Status Changed To: Hospital Disposition Of: Observation - . Bed Request Type: Regular Admitting Physician: Rosaura Harris Patient Diagnosis: Colon cancer metastasized to liver, Intractable abdominal pain
--- NOTE | 2018-03-01 14:49 | US ---
Date of service: 03/01/2018 HISTORY: RUQ abd pain COMPARISON: CT abdomen and pelvis with contrast performed 01/13/18 TECHNIQUE: Sonographic evaluation of the right upper quadrant of the abdomen. FINDINGS: LIVER: Measures 19.3 cm in length. Echogenic liver may be seen in setting of hepatic parenchymal disease or fatty infiltration. Heterogeneous 5.4 x 3.9 x 5.0 cm hepatic mass demonstrated. Additional masses demonstrated on CT abdomen and pelvis with contrast performed 01/13/18 are not appreciated on this limited study. The main portal vein appears patent with normal directional flow. No intrahepatic bile duct dilatation. GALLBLADDER: No gallstones. No gallbladder wall thickening or pericholecystic edema. Negative sonographic Peguero's sign as assessed by the seasonal recruiter. COMMON BILE DUCT: Measures 4 mm. PANCREAS: Not well-visualized. RIGHT KIDNEY: Measures approximately 10.3 x 4.3 x 4.5 cm. No obstructing calculus or hydronephrosis identified. AORTA: Limited visualization appears grossly unremarkable. IVC: Limited visualization appears grossly unremarkable. OTHER FINDINGS: None . IMPRESSION: Limited study. Hepatomegaly. Echogenic liver may be seen in setting of hepatic parenchymal disease or fatty infiltration. 5.4 x 3.9 x 5 cm hepatic mass. Additional known hepatic masses demonstrated by CT are not appreciated on this limited study. Additional incidental findings as above.
[2018-03-01] MEDS ORDERED: HYDROmorphone 1 mg/ml ISec IVP PRN (20:40)
--- NOTE | 2018-03-01 21:25 | CP.PCM.HP ---
Past Patient History - Infectious Disease Hx of Infectious Diseases: None - Past Medical History & Family History Past Medical History?: Yes - Past Social History Smoking Status: Never Smoked - CARDIAC Hx Hypertension: Yes - PULMONARY Hx Asthma: Yes - NEUROLOGICAL Hx Neurological Disorder: No - HEENT Hx HEENT Problems: No - RENAL Hx Chronic Kidney Disease: No - ENDOCRINE/METABOLIC Hx Endocrine Disorders: No - HEMATOLOGICAL/ONCOLOGICAL Hx Anemia: Yes - INTEGUMENTARY Hx Dermatological Problems: No - MUSCULOSKELETAL/RHEUMATOLOGICAL Hx Arthritis: Yes Hx Rheumatoid Arthritis: Yes - GASTROINTESTINAL Hx Gastrointestinal Disorders: Yes Hx Bowel Surgery: Yes Other/Comment: COLON CANCER STAGE 4 WITH CHEMOTHERAPY. R side port a cath - GENITOURINARY/GYNECOLOGICAL Hx Genitourinary Disorders: No - PSYCHIATRIC Hx Anxiety: Yes Hx Bipolar Disorder: Yes Hx Depression: Yes Hx Schizophrenia: Yes Hx Substance Use: No - SURGICAL HISTORY Hx Surgeries: Yes (SEE COMMENT) Hx Orthopedic Surgery: Yes (left knee TKR 03/2017) Hx Tubal Ligation: Yes (2005) Hx Vascular Access Device: Yes (RIGHT SUBCLAVIAN 2014) Other/Comment: colon cancer surgery april 2014 to remove tumor, rt side subclavian Port - ANESTHESIA Hx Anesthesia: Yes Hx Anesthesia Reactions: No Hx Malignant Hyperthermia: No Meds Allergies/Adverse Reactions: Allergies Allergy/AdvReac Type Severity Reaction Status Date / Time No Known Allergies Allergy Verified 02/07/18 10:01 Physical Exam - Constitutional Appears: Well - Head Exam Head Exam: ATRAUMATIC, NORMAL INSPECTION, NORMOCEPHALIC - Eye Exam Eye Exam: EOMI, Normal appearance, PERRL Pupil Exam: NORMAL ACCOMODATION, PERRL - ENT Exam ENT Exam: Mucous Membranes Moist, Normal Exam - Neck Exam Neck exam: Positive for: Normal Inspection - Respiratory Exam Respiratory Exam: Decreased Breath Sounds - Cardiovascular Exam Cardiovascular Exam: REGULAR RHYTHM, +S1, +S2 - GI/Abdominal Exam GI & Abdominal Exam: Diminished Bowel Sounds, Soft - Rectal Exam Rectal Exam: Deferred Results - Vital Signs Recent Vital Signs: Last Vital Signs Temp 98.0 F 03/01/18 18:45 Pulse 93 H 03/01/18 18:45 Resp 20 03/01/18 18:45 BP 130/87 03/01/18 18:45 Pulse Ox 99 03/01/18 18:59 - Labs Result Diagrams: 03/01/18 12:44 03/01/18 12:44 Labs: Laboratory Results - last 24 hr 03/01/18 03/01/18 03/01/18 12:44 12:44 12:44 WBC 3.6 L RBC 4.08 Hgb 11.0 Hct 33.3 L MCV 81.5 MCH 26.9 L MCHC 33.0 RDW 17.8 H Plt Count 154 MPV 8.5 Neut % (Auto) 66.9 Lymph % (Auto) 27.2 Cotton % (Auto) 4.2 Eos % (Auto) 1.2 Baso % (Auto) 0.5 Neut # (Auto) 2.4 Lymph # (Auto) 1.0 Cotton # (Auto) 0.1 Eos # (Auto) 0.0 Baso # (Auto) 0.0 PT 12.3 H INR 1.1 APTT 28 Sodium 139 Potassium 3.8 Chloride 102 Carbon Dioxide 33 H Anion Gap 9 L BUN 10 Creatinine 0.8 Est GFR ( Amer) > 60 Est GFR (Non-Af Amer) > 60 Random Glucose 65 D Calcium 8.8 Total Bilirubin 0.5 AST 33 ALT 34 Alkaline Phosphatase 70 Ammonia Total Protein 6.3 Albumin 3.6 Globulin 2.7 Albumin/Globulin Ratio 1.4 Lipase 39 03/01/18 12:44 WBC RBC Hgb Hct MCV MCH MCHC RDW Plt Count MPV Neut % (Auto) Lymph % (Auto) Cotton % (Auto) Eos % (Auto) Baso % (Auto) Neut # (Auto) Lymph # (Auto) Cotton # (Auto) Eos # (Auto) Baso # (Auto) PT INR APTT Sodium Potassium Chloride Carbon Dioxide Anion Gap BUN Creatinine Est GFR ( Amer) Est GFR (Non-Af Amer) Random Glucose Calcium Total Bilirubin AST ALT Alkaline Phosphatase Ammonia < 9 L Total Protein Albumin Globulin Albumin/Globulin Ratio Lipase
[2018-03-02] MEDS: oxyCODONE 5 mg Immediate Release Tab PO PRN ×3 (02:24→17:48)
[2018-03-02] MEDS ORDERED: DULOXETINE 30 MG PO SCH (10:00)
[2018-03-02] MEDS ORDERED: CLONAZEPAM 2 MG PO SCH (10:00)
[2018-03-02] MEDS: Lactobacillus Acidophilus 500 MU Cap PO SCH (10:01)
[2018-03-02] MEDS: Albuterol-Ipratrop 3 mg / 0.5 (3 ml) UD INH SCH ×3 (10:23→19:55)
[2018-03-02 12:38] LABS: SQUAMOUS EPITHIAL 1 /hpf (0-5); URINE BACTERIA RARE (<OCC); URINE BILIRUBIN NEGATIVE (NEGATIVE); URINE BLOOD 1+ (NEGATIVE); URINE CLARITY Clear (Clear); URINE COLOR Straw (YELLOW); URINE GLUCOSE (UA) NORMAL (Normal); URINE LEUKOCYTE ESTERASE NEG Leu/uL (Negative); URINE PROTEIN NEGATIVE (NEGATIVE); URINE UROBILINOGEN NORMAL mg/dL (0.2-1.0)
--- NOTE | 2018-03-02 20:36 | CP.PCM.PN ---
Subjective - Date & Time of Evaluation Date of Evaluation: 03/02/18 Time of Evaluation: 08:15 - Subjective Subjective: clinically same Objective - Vital Signs/Intake and Output Vital Signs (last 24 hours): Temp Pulse Resp BP Pulse Ox 97.4 F L 81 20 129/90 96 03/02/18 15:14 03/02/18 15:14 03/02/18 15:14 03/02/18 15:14 03/02/18 15:14 Intake and Output: 03/02/18 03/03/18 18:59 06:59 Intake Total 640 Balance 640 - Medications Medications: Current Medications Albuterol/Ipratropium (Duoneb 3 Mg/0.5 Mg (3 Ml) Ud) 3 ml INH RQ6 [facility] Last Admin: 03/02/18 19:55 Dose: Not Given Clonazepam (Klonopin) 2 mg PO TID [facility] Last Admin: 03/02/18 17:47 Dose: 2 mg Duloxetine HCl (Cymbalta) 30 mg PO DAILY [facility] Last Admin: 03/02/18 10:01 Dose: 30 mg Escitalopram Oxalate (Lexapro) 20 mg PO DAILY [facility] Last Admin: 03/02/18 10:01 Dose: 20 mg Home Med (Solifenacin Succinate [Vesicare]) 5 mg PO DAILY [facility] Hydromorphone HCl (Dilaudid) 1 mg IVP Q8H PRN PRN Reason: Pain, severe (8-10) Last Admin: 03/01/18 22:26 Dose: 1 mg Lactobacillus Acidophilus (Bacid Acidophilus) 1 cap PO DAILY [facility] Last Admin: 03/02/18 10:01 Dose: 1 cap Oxycodone HCl (Oxycodone Immediate Release Tab) 15 mg PO Q3H PRN PRN Reason: Pain, moderate (4-7) Last Admin: 03/02/18 17:48 Dose: 15 mg Risperidone (Risperdal Tab) 2 mg PO BID [facility] Last Admin: 03/02/18 17:51 Dose: 2 mg Zolpidem Tartrate (Ambien) 5 mg PO HS PRN PRN Reason: Insomnia Last Admin: 03/01/18 22:26 Dose: 5 mg - Labs Labs: 03/01/18 12:44 03/01/18 12:44 PT 12.3 SECONDS (9.7-12.2) H 03/01/18 12:44 INR 1.1 03/01/18 12:44 APTT 28 SECONDS (21-34) 03/01/18 12:44
[2018-03-02] MEDS ORDERED: Lactobacillus Acidophilus 500 MU Cap PO SCH (22:00)
--- NOTE | 2018-03-02 23:47 | CP.PCM.CON ---
History of Present Illness - History of Present Illness History of Present Illness: 47 year old female with history of depression, stage IV colon cancer with liver and lung metastasis dx in 05/2014, on chemotherapy (FOLFIRI + Avastin), admitted with right sided abdominal pain. The patient has been receiving chemotherapy in the office, last dosed Saturday, reporting to sharp right upper abdominal pain and some nausea. She denies vomiting, diarrhea, fevers and chills. She denies shortness of breath and chest pain. Past medical history: depression, anemia, colon cancer Past surgical history: Knee surgery, portacatheter placement and removal Family history: Denies hematologic and oncologic problems Social history: Denies tobacco, alcohol, and illicit drug use. Allergies: NKA Review of systems: All remaining review of systems including HEENT, cardiovascular, respiratory, gastrointestinal, genitourinary, musculoskeletal, dermatologic, psychiatric, neurologic are negative unless mentioned in the history of present illness. Past Patient History - Infectious Disease Hx of Infectious Diseases: None - Past Medical History & Family History Past Medical History?: Yes - Past Social History Smoking Status: Never Smoked - CARDIAC Hx Hypertension: Yes - PULMONARY Hx Asthma: Yes - NEUROLOGICAL Hx Neurological Disorder: No - HEENT Hx HEENT Problems: No - RENAL Hx Chronic Kidney Disease: No - ENDOCRINE/METABOLIC Hx Endocrine Disorders: No - HEMATOLOGICAL/ONCOLOGICAL Hx Anemia: Yes - INTEGUMENTARY Hx Dermatological Problems: No - MUSCULOSKELETAL/RHEUMATOLOGICAL Hx Arthritis: Yes Hx Rheumatoid Arthritis: Yes - GASTROINTESTINAL Hx Gastrointestinal Disorders: Yes Hx Bowel Surgery: Yes Other/Comment: COLON CANCER STAGE 4 WITH CHEMOTHERAPY. R side port a cath - GENITOURINARY/GYNECOLOGICAL Hx Genitourinary Disorders: No - PSYCHIATRIC Hx Anxiety: Yes Hx Bipolar Disorder: Yes Hx Depression: Yes Hx Schizophrenia: Yes Hx Substance Use: No - SURGICAL HISTORY Hx Surgeries: Yes (SEE COMMENT) Hx Orthopedic Surgery: Yes (left knee TKR 03/2017) Hx Tubal Ligation: Yes (2005) Hx Vascular Access Device: Yes (RIGHT SUBCLAVIAN 2014) Other/Comment: colon cancer surgery april 2014 to remove tumor, rt side subclavian Port - ANESTHESIA Hx Anesthesia: Yes Hx Anesthesia Reactions: No Hx Malignant Hyperthermia: No Meds Allergies/Adverse Reactions: Allergies Allergy/AdvReac Type Severity Reaction Status Date / Time No Known Allergies Allergy Verified 02/07/18 10:01 - Medications Medications: Current Medications Albuterol/Ipratropium (Duoneb 3 Mg/0.5 Mg (3 Ml) Ud) 3 ml INH RQ6 [facility] Last Admin: 03/02/18 19:55 Dose: Not Given Clonazepam (Klonopin) 2 mg PO TID [facility] Last Admin: 03/02/18 17:47 Dose: 2 mg Duloxetine HCl (Cymbalta) 30 mg PO DAILY [facility] Last Admin: 03/02/18 10:01 Dose: 30 mg Escitalopram Oxalate (Lexapro) 20 mg PO DAILY [facility] Last Admin: 03/02/18 10:01 Dose: 20 mg Home Med (Solifenacin Succinate [Vesicare]) 5 mg PO DAILY [facility] Hydromorphone HCl (Dilaudid) 1 mg IVP Q8H PRN PRN Reason: Pain, severe (8-10) Last Admin: 03/01/18 22:26 Dose: 1 mg Lactobacillus Acidophilus (Bacid Acidophilus) 1 cap PO DAILY [facility] Last Admin: 03/02/18 10:01 Dose: 1 cap Oxycodone HCl (Oxycodone Immediate Release Tab) 15 mg PO Q3H PRN PRN Reason: Pain, moderate (4-7) Last Admin: 03/02/18 17:48 Dose: 15 mg Risperidone (Risperdal Tab) 2 mg PO BID [facility] Last Admin: 03/02/18 17:51 Dose: 2 mg Zolpidem Tartrate (Ambien) 5 mg PO HS PRN PRN Reason: Insomnia Last Admin: 03/02/18 22:20 Dose: 5 mg Physical Exam - Head Exam Head Exam: ATRAUMATIC - Eye Exam Eye Exam: Normal appearance - ENT Exam ENT Exam: Mucous Membranes Dry - Respiratory Exam Respiratory Exam: NORMAL BREATHING PATTERN - Cardiovascular Exam Cardiovascular Exam: +S1, +S2 - GI/Abdominal Exam GI & Abdominal Exam: Normal Bowel Sounds - Extremities Exam Extremities exam: Positive for: normal inspection - Neurological Exam Neurological exam: Oriented x3 - Psychiatric Exam Psychiatric exam: Normal Affect, Normal Mood Results - Vital Signs Recent Vital Signs: Last Vital Signs Temp 98.7 F 03/02/18 23:15 Pulse 81 03/02/18 23:15 Resp 20 03/02/18 23:15 BP 108/64 03/02/18 23:15 Pulse Ox 95 03/02/18 23:15 - Labs Result Diagrams: 03/01/18 12:44 03/01/18 12:44 Labs: Laboratory Results - last 24 hr 03/02/18 12:25 Urine Color Straw Urine Clarity Clear Urine pH 7.0 Ur Specific [place] 1.003 Urine Protein Negative Urine Glucose (UA) Normal Urine Ketones Negative Urine Blood 1+ H Urine Nitrate Negative Urine Bilirubin Negative Urine Urobilinogen Normal Ur Leukocyte Esterase Neg Urine WBC (Auto) 1 Urine RBC (Auto) < 1 Ur Squamous Epith Cells 1 Urine Bacteria Rare Assessment & Plan (1) Leukopenia Assessment and Plan: no neutropenia secondary to chemotherapy Status: Acute (2) Anemia Assessment and Plan: anemia of chemotherapy Status: Acute (3) Colon cancer Assessment and Plan: lung and liver metastasis on outpatient chemotherapy given abdominal pain, will order restaging CT scan to evaluate for progression of disease Thank you for this interesting consult. Status: Acute
[2018-03-03] MEDS: oxyCODONE 5 mg Immediate Release Tab PO PRN ×3 (02:28→19:50)
[2018-03-03] MEDS: Albuterol-Ipratrop 3 mg / 0.5 (3 ml) UD INH SCH ×5 (02:37→19:54)
[2018-03-03] MEDS ORDERED: Iohexol 240 (50 ml) PO ONE (09:00)
[2018-03-03] MEDS: Lactobacillus Acidophilus 500 MU Cap PO SCH (10:08)
[2018-03-03] MEDS: Enoxaparin 40 mg Syringe SC SCH (11:03)
[2018-03-03] MEDS ORDERED: Iodixanol 320 mg/ml 150 ml Bottle IV ONE (14:47)
--- NOTE | 2018-03-03 17:42 | CT ---
Date of service: 03/03/2018 PROCEDURE: CT Chest, Abdomen and Pelvis with intravenous contrast HISTORY: .Restaging colon cancer on chemo COMPARISON: Comparison made with prior CT scan the abdomen pelvis 01/13/2018. Comparison also made with prior CT scan chest which was performed as part of a CT scan chest abdomen pelvis 12/20/2017. TECHNIQUE: Contiguous helical/transaxial sections of the chest abdomen pelvis performed following oral and intravenous injection of approximately 100 cc Visipaque 320 contrast material. Additional 2D sagittal and coronal reformats generated. Radiation dose: Total exam DLP = 1826.51 mGy-cm. This CT exam was performed using one or more of the following dose reduction techniques: Automated exposure control, adjustment of the mA and/or kV according to patient size, and/or use of iterative reconstruction technique. FINDINGS: CT CHEST WITH CONTRAST: LUNGS: Straightened is elliptical shaped nodule right posterior and lateral lung apex/upper lobe region that measures approximately 12.6 mm. Addition, there is a smaller approximately 7 mm elliptical shaped nodule which appears to be pleural-based left lung apex. No other parenchymal lung masses however there does appear to be some few small subpleural nodular densities in the posterior aspect right lower lobe likely postinflammatory. Some minimal linear scarring left lingular region. MEDIASTINUM: Heart size is within range of normal. There is a tiny pericardial effusion. No significant calcified atherosclerotic plaque seen along the thoracic aorta. Normal caliber of the thoracic aorta ascending thoracic aorta measures approximately 3.1 cm and descending thoracic aorta measures approximately 2.2 cm... No evidence of aortic dissection. Pulmonary trunk measures approximately 2.3 cm. Small hiatal hernia. LYMPH NODES: Few tiny nonspecific mediastinal lymph nodes. No significant hilar adenopathy. Trachea midline and patent with no large central endoluminal lesions. PLEURA: Unremarkable. No pneumothorax. No pleural fluid. BONES: Mild multilevel degenerative spondylosis of the lower cervical and thoracic spine. No definitive suspicious lytic or blastic lesions. OTHER FINDINGS: None. CT ABDOMEN AND PELVIS: LIVER: Liver is enlarged measuring over 21 cm in CC dimension. Minor fatty hepatic infiltration. Redemonstrated are multiple low-attenuation lesions scattered throughout the hepatic parenchyma the largest of which is located in the superior aspect left lobe liver likely representing metastatic deposits.. Few of these lesions appear to have increased in size. GALLBLADDER AND BILE DUCTS: Gallbladder is physiologically distended. No evidence of intraluminal gallbladder calculi PANCREAS: Pancreas remains slightly atrophic and fatty replaced. No pancreatic masses collections or calcifications. SPLEEN: Spleen remains enlarged measuring approximately over 16 cm in AP dimension ADRENALS: The demonstrated is slightly nodular appearing adrenal gland KIDNEYS AND URETERS: Kidneys demonstrate symmetric nephrograms. No evidence of nephrolithiasis or hydronephrosis. Ass. VASCULATURE: No aortic atherosclerotic calcification or mural plaque present. Unremarkable. No aortic aneurysm. BOWEL: Evaluation of the bowel is somewhat limited due to the lack of oral contrast material. The stomach is distended with food debris liquid and air. Visualized loops of small bowel exhibit normal contour and caliber. No evidence of acute mechanical small bowel obstruction.. Visualized loops of small bowel exhibit normal contour and caliber. No evidence of acute mechanical small bowel obstruction with oral contrast material seen extending into the colon to the level of the rectum... No definitive evidence of mural wall thickening. Anastomotic suture material seen along the peripheral margin of the distal sigmoid colon.. There appears to be slight asymmetric wall thickening involving short segment of the distal sigmoid colon (slightly distal to the suture line) which could represent localized area of underdistention, peristalsis and unopacified stool however possibility of recurrent residual tumor cannot be excluded. Distal sigmoid/rectal junction seen on axial series 6, image number [id number]); consider follow-up on colonoscopy. APPENDIX: Normal appendix.. PERITONEUM: Unremarkable. No free fluid. No free air. Small fat containing umbilical hernia. LYMPH NODES: Unremarkable. No enlarged lymph nodes. BLADDER: Urinary bladder is incompletely distended which in part accounts for thick-walled appearance however cystitis must be excluded with urinalysis correlation. REPRODUCTIVE: Uterus appears unremarkable BONES: Mild multilevel degenerative spondylosis of the lumbar spine. Are no definitive suspicious lytic or blastic lesions. No acute compression fractures no retropulsed fragments. OTHER FINDINGS: None. IMPRESSION: Redemonstrated are 2 nodules the right apex/upper lobe and another smaller left apical lesion which of, both of which appear relatively stable. Multiple metastatic lesions seen scattered throughout the hepatic parenchyma few which have increased in size. Hepatomegaly with mild fatty infiltration Splenomegaly. The slight wall thickening of a short segment of the distal sigmoid colon (slight the distal to the anastomosis) which probably represents some combination of incomplete distension peristalsis and unopacified stool however possibility of a recurrent disease cannot be excluded. Follow-up colonoscopy is recommended if indicated clinically. Persistent slight nodular appearing left adrenal gland. Wall thickening of the urinary bladder possibly in part due to incomplete distention however cystitis not excluded. Correlation with urinalysis recommended.
--- NOTE | 2018-03-03 18:02 | CP.PCM.PN ---
Subjective - Date & Time of Evaluation Date of Evaluation: 03/03/18 Time of Evaluation: 08:45 - Subjective Subjective: clinically same Objective - Vital Signs/Intake and Output Vital Signs (last 24 hours): Temp Pulse Resp BP Pulse Ox 98 F 82 20 130/86 97 03/03/18 16:00 03/03/18 16:00 03/03/18 16:00 03/03/18 16:00 03/03/18 16:25 Intake and Output: 03/03/18 03/03/18 06:59 18:59 Intake Total 340 240 Balance 340 240 - Medications Medications: Current Medications Albuterol/Ipratropium (Duoneb 3 Mg/0.5 Mg (3 Ml) Ud) 3 ml INH RQ6 [facility] Last Admin: 03/03/18 13:58 Dose: 3 ml Clonazepam (Klonopin) 2 mg PO TID [facility] Last Admin: 03/03/18 17:13 Dose: 2 mg Duloxetine HCl (Cymbalta) 30 mg PO DAILY [facility] Last Admin: 03/03/18 10:07 Dose: 30 mg Enoxaparin Sodium (Lovenox) 40 mg SC DAILY [facility] Last Admin: 03/03/18 11:03 Dose: 40 mg Escitalopram Oxalate (Lexapro) 20 mg PO DAILY [facility] Last Admin: 03/03/18 10:07 Dose: 20 mg Hydromorphone HCl (Dilaudid) 1 mg IVP Q8H PRN PRN Reason: Pain, severe (8-10) Last Admin: 03/01/18 22:26 Dose: 1 mg Lactobacillus Acidophilus (Bacid Acidophilus) 1 cap PO DAILY [facility] Last Admin: 03/03/18 10:08 Dose: 1 cap Oxycodone HCl (Oxycodone Immediate Release Tab) 15 mg PO Q3H PRN PRN Reason: Pain, moderate (4-7) Last Admin: 03/03/18 14:22 Dose: 15 mg Risperidone (Risperdal Tab) 2 mg PO BID [facility] Last Admin: 03/03/18 17:13 Dose: 2 mg Tolterodine Tartrate (Detrol La) 4 mg PO DAILY [facility] Zolpidem Tartrate (Ambien) 5 mg PO HS PRN PRN Reason: Insomnia Last Admin: 03/02/18 22:20 Dose: 5 mg - Labs Labs: 03/01/18 12:44 03/01/18 12:44 PT 12.3 SECONDS (9.7-12.2) H 03/01/18 12:44 INR 1.1 03/01/18 12:44 APTT 28 SECONDS (21-34) 03/01/18 12:44
[2018-03-04] MEDS: Albuterol-Ipratrop 3 mg / 0.5 (3 ml) UD INH SCH ×2 (02:00→08:18)
[2018-03-04] MEDS: oxyCODONE 5 mg Immediate Release Tab PO PRN ×2 (03:28→10:03)
[2018-03-04 06:49] VITALS: O2SAT 96
[2018-03-04 07:24] VITALS: BP 116/77; PULSE 82; TEMP 97.6
[2018-03-04 08:06] LABS: BASO % 0.4 % (0.0-2.0); EOS % 0.7 % (0.0-4.0); HEMOGLOBIN 11.1 g/dL (11.0-16.0); LYMPH # 1.3 K/uL (1.0-4.3); LYMPH % 33.4 % (20.0-40.0); MEAN CELL VOLUME 81.8 fL (81.0-99.0); MEAN CORPUSCULAR HEMOGLOBIN 27.2 pg (27.0-31.0); MEAN CORPUSCULAR HGB CONC 33.3 g/dL (33.0-37.0); MEAN PLATELET VOLUME 8.7 fL (7.2-11.7); MONO # 0.3 K/uL (0.0-0.8); MONO % 7.2 % (0.0-10.0); NEUT # 2.2 K/uL (1.8-7.0); NEUT % 58.3 % (50.0-75.0); NRBC % 0.1 % (0.0-2.0); RBC 4.1 Mil/uL (3.80-5.20); RED CELL DISTRIBUTION WIDTH 18.3 % (11.5-14.5); WHITE BLOOD COUNT 3.8 K/uL (4.8-10.8)
[2018-03-04 08:38] LABS: ALB/GLOB RATIO 1.4 (1.0-2.1); ALBUMIN 3.8 g/dL (3.5-5.0); ALT/SGPT 27 U/L (9-52); BLOOD UREA NITROGEN 16 mg/dL (7-17); CALCIUM 8.9 mg/dl (8.6-10.4); GFR NON-AFRICAN AMERICAN 59
[2018-03-04 09:14] LABS: AST/SGOT 27 U/L (14-36)
[2018-03-04] MEDS ORDERED: Tolterodine 4 mg ER Cap PO SCH (10:00)
[2018-03-04] MEDS: Lactobacillus Acidophilus 500 MU Cap PO SCH (10:02)
[2018-03-04] MEDS: Enoxaparin 40 mg Syringe SC SCH (10:03)
--- NOTE | 2018-03-04 11:57 | CP.PCM.PN ---
Subjective - Date & Time of Evaluation Date of Evaluation: 03/04/18 Time of Evaluation: 11:57 Objective - Vital Signs/Intake and Output Vital Signs (last 24 hours): Temp Pulse Resp BP Pulse Ox 97.6 F 82 20 116/77 96 03/04/18 07:23 03/04/18 07:23 03/04/18 07:23 03/04/18 07:23 03/04/18 07:23 Intake and Output: 03/04/18 03/04/18 06:59 18:59 Intake Total 180 Balance 180 - Medications Medications: Current Medications Albuterol/Ipratropium (Duoneb 3 Mg/0.5 Mg (3 Ml) Ud) 3 ml INH RQ6 [facility] Last Admin: 03/04/18 08:18 Dose: Not Given Clonazepam (Klonopin) 2 mg PO TID [facility] Last Admin: 03/04/18 10:03 Dose: 2 mg Duloxetine HCl (Cymbalta) 30 mg PO DAILY [facility] Last Admin: 03/04/18 10:02 Dose: 30 mg Enoxaparin Sodium (Lovenox) 40 mg SC DAILY [facility] Last Admin: 03/04/18 10:03 Dose: 40 mg Escitalopram Oxalate (Lexapro) 20 mg PO DAILY [facility] Last Admin: 03/04/18 10:02 Dose: 20 mg Hydromorphone HCl (Dilaudid) 1 mg IVP Q8H PRN PRN Reason: Pain, severe (8-10) Last Admin: 03/01/18 22:26 Dose: 1 mg Lactobacillus Acidophilus (Bacid Acidophilus) 1 cap PO DAILY [facility] Last Admin: 03/04/18 10:02 Dose: 1 cap Oxycodone HCl (Oxycodone Immediate Release Tab) 15 mg PO Q3H PRN PRN Reason: Pain, moderate (4-7) Last Admin: 03/04/18 10:03 Dose: 15 mg Risperidone (Risperdal Tab) 2 mg PO BID [facility] Last Admin: 03/04/18 10:02 Dose: 2 mg Tolterodine Tartrate (Detrol La) 4 mg PO DAILY [facility] Last Admin: 03/04/18 10:02 Dose: 4 mg Zolpidem Tartrate (Ambien) 5 mg PO HS PRN PRN Reason: Insomnia Last Admin: 03/03/18 21:18 Dose: 5 mg - Labs Labs: 03/04/18 07:53 03/04/18 07:53 PT 12.3 SECONDS (9.7-12.2) H 03/01/18 12:44 INR 1.1 03/01/18 12:44 APTT 28 SECONDS (21-34) 03/01/18 12:44 Assessment and Plan - Assessment and Plan (Free Text) Assessment: follow up with dr domenico howard in his office follow up with dr guerrero in his office continue home medication new prescription given cymbalta 30 mg po daily stop taking cymbalta [address] domenico howard activity as tolerated call dr domenico howard or go to the emergency if symptom return or worsening
[2018-03-04] MEDS ORDERED: Influenza Vaccine 60 mcg/0.5 mL SYR (4YR UP) IM ONE (13:00)
[2018-03-04] MEDS ORDERED: Pneumococcal 23-Valent Vaccine IM ONE (13:00)
== END 2018-03-04 13:49 | disposition home or self-care (01) ==
LOC: C.ER 10:36 → C.9E 16:46 → C.3T 16:59
PROVIDERS: ADMIT Internal Medicine Nephrology; ATTEND Internal Medicine Nephrology
DX: C18.9 Malignant neoplasm of colon, unspecified (principal); C78.7 Secondary malignant neoplasm of liver and intrahepatic bile duct; C78.00 Secondary malignant neoplasm of unspecified lung; T45.1X5A Adverse effect of antineoplastic and immunosuppressive drugs, initial encounter; I10 Essential (primary) hypertension; J45.909 Unspecified asthma, uncomplicated; M06.9 Rheumatoid arthritis, unspecified; F20.9 Schizophrenia, unspecified; F31.9 Bipolar disorder, unspecified; D64.81 Anemia due to antineoplastic chemotherapy; Z79.899 Other long term (current) drug therapy; Z85.038 Personal history of other malignant neoplasm of large intestine; Z98.51 Tubal ligation status
CPT/HCPCS: 36415; 71260; 74177; 76705; 80053; 81001; 82140; 83690; 85025; 85610; 85730; 90674; 90732; 94640; 96374; 99285; C9113; G0008; G0009; G0378; J1170; J1650; J2270; J2405; J7030; Q9966; Q9967

== ENCOUNTER 2018-03-14 10:38 | Emergency (ER) | payer MEDICARE ==
[2018-03-14 10:38] VITALS: BMI 37.3
[2018-03-14 10:53] VITALS: TEMP 97.8; O2SAT 98
[2018-03-14 12:09] LABS: SQUAMOUS EPITHIAL 4 /hpf (0-5); URINE BACTERIA RARE (<OCC); URINE BILIRUBIN NEGATIVE (NEGATIVE); URINE BLOOD NEGATIVE (NEGATIVE); URINE CLARITY Clear (Clear); URINE COLOR Colorless (YELLOW); URINE GLUCOSE (UA) NORMAL (Normal); URINE LEUKOCYTE ESTERASE NEG Leu/uL (Negative); URINE PROTEIN NEGATIVE (NEGATIVE); URINE UROBILINOGEN NORMAL mg/dL (0.2-1.0)
[2018-03-14 12:44] VITALS: BP 129/84; PULSE 992; RESP 19
--- NOTE | 2018-03-14 12:53 | C.PDOC ---
History Of Present Illness 47 year old female presents to the emergency department with complaints of "upper right-sided" pain and diarrhea since 3AM last night. Patient denies fever, chills, nausea, vomiting, blood in the stool, chest pain, and shortness of breath. Patient reports a history of colon cancer, and is currently taking Oxycodone. Time Seen by Provider: 03/14/18 10:59 Chief Complaint (Nursing): Abdominal Pain History Per: Patient History/Exam Limitations: no limitations Onset/Duration Of Symptoms: Hrs Current Symptoms Are (Timing): Still Present Location Of Pain/Discomfort: RUQ Radiation Of Pain To:: None Quality Of Discomfort: "Pain" Associated Symptoms: Diarrhea. denies: Fever, Chills, Nausea, Vomiting, Back Pain, Chest Pain, Other (shortness of breath) Past Medical History Reviewed: Historical Data, Nursing Documentation, Vital Signs Vital Signs: Last Vital Signs Temp 97.8 F 03/14/18 10:52 Pulse 95 H 03/14/18 10:52 Resp 18 03/14/18 10:52 BP 135/84 03/14/18 10:52 Pulse Ox 98 03/14/18 10:52 - Medical History PMH: Anemia, Anxiety, Arthritis, Asthma, Back Problems, Bipolar Disorder, Depression, HTN, Malignancy (Colon), Rheumatoid Arthritis, Schizophrenia Denies: Chronic Kidney Disease Surgical History: No Surg Hx - [facility] Procedures CLOSED ENDOSCOPIC BIOPSY OF LARGE INTESTINE (05/23/14) COLONOSCOPY (08/12/14) DX ULTRASOUND-ABDOMEN (05/23/14) EXCISION OF STOMACH, ENDO, DIAGN (01/13/18) INSERTION OF TOTALLY IMPLANTABLE VASC ACCESS DEVIC (05/23/14) LAPAROSCOP LYSIS-PERITONEAL ADHES (05/23/14) LAPAROSCOPIC SIGMOIDECTOMY (05/23/14) OTHER ENDOSCOPY OF SM INTEST (05/23/14) PACKED CELL TRANSFUSION (05/23/14) PERCUTAN NEEDLE BX OF LIVER (05/23/14) REMOVAL OF VAD FROM TRUNK SUBCU/FASCIA, PERC APPROACH (03/16/15) Family History: States: No Known Family Hx - Social History Hx Tobacco Use: No Hx Alcohol Use: No Hx Substance Use: No - Immunization History Hx Tetanus Toxoid Vaccination: No Hx Influenza Vaccination: Yes Hx Pneumococcal Vaccination: No Review Of Systems Except As Marked, All Systems Reviewed And Found Negative. Constitutional: Negative for: Fever, Chills Cardiovascular: Negative for: Chest Pain Respiratory: Negative for: Shortness of Breath Gastrointestinal: Positive for: Abdominal Pain, Diarrhea. Negative for: Melena, Hematochezia Physical Exam - Physical Exam Appears: Non-toxic, No Acute Distress Skin: Warm, Dry Head: Atraumatic, Normacephalic Eye(s): bilateral: Normal Inspection, PERRL, EOMI Oral Mucosa: Moist Neck: Normal, Supple Chest: Symmetrical, No Tenderness Cardiovascular: Rhythm Regular, No Murmur Respiratory: Normal Breath Sounds, No Rales, No Rhonchi, No Wheezing Gastrointestinal/Abdominal: Soft, No Tenderness, No Guarding, No Rebound Neurological/Psych: Oriented x3, Normal Speech, Normal Cognition ED Course And Treatment - Laboratory Results Lab Results: Urine Color Colorless (YELLOW) 03/14/18 11:58 Urine Clarity Clear (Clear) 03/14/18 11:58 Urine pH 6.0 (5.0-8.0) 03/14/18 11:58 Ur Specific [place] 1.001 (1.003-1.030) L 03/14/18 11:58 Urine Protein Negative mg/dL (NEGATIVE) 03/14/18 11:58 Urine Glucose (UA) Normal mg/dL (Normal) 03/14/18 11:58 Urine Ketones Negative mg/dL (NEGATIVE) 03/14/18 11:58 Urine Blood Negative (NEGATIVE) 03/14/18 11:58 Urine Nitrate Negative (NEGATIVE) 03/14/18 11:58 Urine Bilirubin Negative (NEGATIVE) 03/14/18 11:58 Urine Urobilinogen Normal mg/dL (0.2-1.0) 03/14/18 11:58 Ur Leukocyte Esterase Neg Mina/uL (Negative) 03/14/18 11:58 Urine WBC (Auto) < 1 /hpf (0-5) 03/14/18 11:58 Urine RBC (Auto) < 1 /hpf (0-3) 03/14/18 11:58 Ur Squamous Epith Cells 4 /hpf (0-5) 03/14/18 11:58 Urine Bacteria Rare (<OCC) 03/14/18 11:58 O2 Sat by Pulse Oximetry: 98 (RA) Pulse Ox Interpretation: Normal Medical Decision Making Medical Decision Making: Plan: Urinalysis Patient's urine resulted negative. When results were discussed with the patient, the patient is requesting a sandwich. Patient instructed to follow-up with her PMD. Patient left the ED without letting anyone know 14:15. Disposition - Disposition Disposition: HOME/ ROUTINE Disposition Time: 14:15 Condition: GOOD Forms: [facility] (Malay) - POA Present On Arrival: None - Clinical Impression Clinical Impression: Abdominal pain, Diarrhea - Scribe Statement The provider has reviewed the documentation as recorded by the Scribe (Antonio Mcclure) Provider Attestation: All medical record entries made by the Scribe were at my direction and personally dictated by me. I have reviewed the chart and agree that the record accurately reflects my personal performance of the history, physical exam, medical decision making, and the department course for this patient. I have also personally directed, reviewed, and agree with the discharge instructions and disposition.
== END 2018-03-14 14:45 | disposition home or self-care (01) ==
LOC: C.ER 10:38
DX: R10.11 Right upper quadrant pain (principal); R19.7 Diarrhea, unspecified; I10 Essential (primary) hypertension; F20.9 Schizophrenia, unspecified; M06.9 Rheumatoid arthritis, unspecified; Z85.038 Personal history of other malignant neoplasm of large intestine

== ENCOUNTER 2018-04-09 11:06 | Emergency (ER) | payer MEDICARE ==
[2018-04-09 11:06] VITALS: BMI 37.3
[2018-04-09 11:20] VITALS: TEMP 97.5
[2018-04-09] MEDS ORDERED: Sodium Chloride 0.9% 1,000 ML IV ONE (11:31)
[2018-04-09] MEDS ORDERED: Sodium Chloride 0.9% 1,000 ML ONE (12:01)
[2018-04-09 12:04] LABS: EOS % 0.4 % (0.0-4.0); HEMOGLOBIN 11.1 g/dL (11.0-16.0); MEAN PLATELET VOLUME 8.1 fL (7.2-11.7); MONO # 0.2 K/uL (0.0-0.8)
--- NOTE | 2018-04-09 12:05 | C.PDOC ---
History Of Present Illness 47 year old female, whose past medical history includes colon cancer with metastasis (attends chemotherapy, last session was two days ago), presents to the ED for evaluation of chest pain which began today. Patient reports having an episode of shooting pain to her chest. She called the ambulance, and Aspirin was given to her en route to the ED. Patient states she takes Oxycontin at home for pain. Patient denies fever, chills, nausea, vomiting, extremity numbness/weakness. Time Seen by Provider: 04/09/18 11:09 Chief Complaint (Nursing): Chest Pain History Per: Patient, EMS History/Exam Limitations: no limitations Onset/Duration Of Symptoms: Hrs Current Symptoms Are (Timing): Still Present Quality: "Pain", Other (shooting ) Additional History Per: Patient, EMS Past Medical History Reviewed: Historical Data, Nursing Documentation, Vital Signs Vital Signs: Last Vital Signs Temp 97.5 F L 04/09/18 11:15 Pulse 99 H 04/09/18 11:15 Resp BP 148/87 04/09/18 11:15 Pulse Ox 98 04/09/18 11:15 - Medical History PMH: Anemia, Anxiety, Arthritis, Asthma, Back Problems, Bipolar Disorder, Depression, HTN, Malignancy (Colon), Rheumatoid Arthritis, Schizophrenia Denies: Chronic Kidney Disease Surgical History: No Surg Hx - [facility] Procedures CLOSED ENDOSCOPIC BIOPSY OF LARGE INTESTINE (05/23/14) COLONOSCOPY (08/12/14) DX ULTRASOUND-ABDOMEN (05/23/14) EXCISION OF STOMACH, ENDO, DIAGN (01/13/18) INSERTION OF TOTALLY IMPLANTABLE VASC ACCESS DEVIC (05/23/14) LAPAROSCOP LYSIS-PERITONEAL ADHES (05/23/14) LAPAROSCOPIC SIGMOIDECTOMY (05/23/14) OTHER ENDOSCOPY OF SM INTEST (05/23/14) PACKED CELL TRANSFUSION (05/23/14) PERCUTAN NEEDLE BX OF LIVER (05/23/14) REMOVAL OF VAD FROM TRUNK SUBCU/FASCIA, PERC APPROACH (03/16/15) Family History: States: Unknown Family Hx - Social History Hx Tobacco Use: No Hx Alcohol Use: No Hx Substance Use: No - Immunization History Hx Tetanus Toxoid Vaccination: No Hx Influenza Vaccination: Yes Hx Pneumococcal Vaccination: No Review Of Systems Constitutional: Negative for: Fever, Chills Cardiovascular: Positive for: Chest Pain Gastrointestinal: Negative for: Nausea, Vomiting Neurological: Negative for: Weakness, Numbness Physical Exam - Physical Exam Appears: Non-toxic, No Acute Distress Skin: Normal Color, Warm, Dry Head: Atraumatic, Normacephalic Eye(s): bilateral: Normal Inspection Oral Mucosa: Moist Neck: Supple Chest: Symmetrical, No Deformity, Tenderness (reproducible, to anterior chest wall ) Cardiovascular: Rhythm Regular, No Murmur Respiratory: Normal Breath Sounds, No Rales, No Rhonchi, No Wheezing Extremity: Normal ROM, Capillary Refill (less than 2 seconds ) Neurological/Psych: Oriented x3, Normal Speech, Normal Cognition ED Course And Treatment - Laboratory Results Result Diagrams: 04/09/18 11:55 04/09/18 11:55 Lab Interpretation: Normal ECG: Interpreted By Me ECG Rhythm: Sinus Rhythm ECG Interpretation: No Acute Changes Rate From EC O2 Sat by Pulse Oximetry: 98 (on RA) Pulse Ox Interpretation: Normal - Radiology CXR: Interpreted by Me, Viewed By Me, Read By Radiologist - Other Rad No standard instances X-Ray: Viewed By Me, Read By Radiologist Interpretation: FINDINGS: Right-sided MediPort extends to the SVC. LUNGS: No focal consolidation. Faintly visualized 9 mm nodular opacity within the right upper lobe overlying the shadows of the 2nd anterior rib and 4th posterior rib. Please note that chest x-ray has limited sensitivity for the detection of pulmonary masses. PLEURA: No significant pleural effusion identified. No definite pneumothorax . CARDIOVASCULAR: Heart size appears within normal limits. No atherosclerotic calcifications identified. OSSEOUS STRUCTURES: Degenerative changes. VISUALIZED UPPER ABDOMEN: Unremarkable. OTHER FINDINGS: None. IMPRESSION: Right-sided MediPort. Faintly visualized 9 mm nodular opacity within the right upper lobe overlying the shadows of the 2nd anterior rib and 4th posterior rib. Seen to better advantage on CT of the chest performed 03/03/18 Progress Note: Bloodwork, urinalysis, CXR and EKG ordered and reviewed. Toradol IVP and IV Fluids given. On re-evaluation lungs clear in no distress Reassessment Condition: Improved Disposition Counseled Patient/Family Regarding: Studies Performed, Diagnosis, Need For Followup - Disposition Referrals: Shaik Saxena MD [Staff Provider] - Disposition: HOSPITALIZED Disposition Time: 13:10 Condition: IMPROVED Additional Instructions: Follow up with your PMD for further evaluation Prescriptions: Naproxen [Naprosyn] 1 tab PO BID PRN #25 tab PRN Reason: Pain Instructions: Costochondritis, Chest Pain (DC) Forms: [facility] (Faroese) - POA Present On Arrival: None - Clinical Impression Clinical Impression: Chest wall pain - PA / TROMMEL TENDER / Resident Statement MD/DO has reviewed & agrees with the documentation as recorded. - Scribe Statement The provider has reviewed the documentation as recorded by the Scribe (Jana Harris) All medical record entries made by the Scribe were at my direction and personally dictated by me. I have reviewed the chart and agree that the record accurately reflects my personal performance of the history, physical exam, medical decision making, and the department course for this patient. I have also personally directed, reviewed, and agree with the discharge instructions and disposition.
[2018-04-09 12:09] LABS: BASO % 0.4 % (0.0-2.0); LYMPH % 23.8 % (20.0-40.0); MEAN CELL VOLUME 82.8 fL (81.0-99.0); MEAN CORPUSCULAR HEMOGLOBIN 26.6 pg (27.0-31.0); MEAN CORPUSCULAR HGB CONC 32.1 g/dL (33.0-37.0); MONO % 4.6 % (0.0-10.0); NEUT # 3.1 K/uL (1.8-7.0); NEUT % 70.8 % (50.0-75.0); RBC 4.19 Mil/uL (3.80-5.20); RED CELL DISTRIBUTION WIDTH 18.5 % (11.5-14.5); WHITE BLOOD COUNT 4.4 K/uL (4.8-10.8)
[2018-04-09 12:13] LABS: SQUAMOUS EPITHIAL 2 /hpf (0-5); URINE BILIRUBIN NEGATIVE (NEGATIVE); URINE BLOOD NEGATIVE (NEGATIVE); URINE CLARITY Clear (Clear); URINE COLOR Straw (YELLOW); URINE GLUCOSE (UA) NORMAL (Normal); URINE LEUKOCYTE ESTERASE NEG Leu/uL (Negative); URINE PROTEIN NEGATIVE (NEGATIVE); URINE UROBILINOGEN NORMAL mg/dL (0.2-1.0)
[2018-04-09 12:17] LABS: ALB/GLOB RATIO 1.6 (1.0-2.1); ALBUMIN 3.8 g/dL (3.5-5.0); ALT/SGPT 29 U/L (9-52); AST/SGOT 34 U/L (14-36); BLOOD UREA NITROGEN 15 mg/dL (7-17); CALCIUM 7.7 mg/dl (8.6-10.4); GFR NON-AFRICAN AMERICAN > 60
[2018-04-09 14:13] VITALS: BP 162/101; PULSE 85; RESP 18
[2018-04-09 17:58] VITALS: O2SAT 98
--- NOTE | 2018-04-10 20:13 | CARD ---
APPROVED REPORT Date of service: 04/09/2018 EKG Measurement Heart [id number] <Conclusion> Normal sinus rhythm Prolonged QT Abnormal ECG
== END 2018-04-09 14:31 | disposition home or self-care (01) ==
LOC: C.ER 11:06
DX: R07.89 Other chest pain (principal)
CPT/HCPCS: 71046; 80053; 81001; 84484; 85025; 93005; 96361; 96374; 99284; J1885; J7030

== ENCOUNTER 2018-04-15 14:07 | Observation (INO) | payer MEDICARE ==
[2018-04-15 14:08] VITALS: BMI 37.3
--- NOTE | 2018-04-15 14:47 | C.PDOC ---
History Of Present Illness 47 y/o female with PMH of Anemia, Anxiety, Arthritis, Asthma, Back Problems, Bipolar Disorder, Depression, HTN, Malignancy (Colon), Rheumatoid Arthritis, Schizophrenia presents to the ED with complaints of chest pain that began 30 mi nutes prior to arrival. Pain is described as sharp, and radiating down the left arm. Patient has never had pain like this before. She denies taking any medications prior to arrival for symptom relief. Patient notes the pain had sudden onset while she was sitting and watching TV. On arrival to the ED, patient is also complaining of left-sided face, arm, and leg numbness. Pt does not take daily aspirin and denies having a material processor. She denies focal weakness, facial droop, palpitations, visual changes, headache, dizziness, back pain, SOB, difficulty ambulating, or change in speech. Time Seen by Provider: 04/15/18 14:12 Chief Complaint (Nursing): Chest Pain History Per: Patient History/Exam Limitations: no limitations Onset/Duration Of Symptoms: Mins (30) Current Symptoms Are (Timing): Still Present Past Medical History Reviewed: Historical Data, Nursing Documentation, Vital Signs Vital Signs: Last Vital Signs Temp 97.5 F L 04/15/18 14:14 Pulse 101 H 04/15/18 14:14 Resp 14 04/15/18 14:14 BP 161/102 H 04/15/18 14:14 Pulse Ox 98 04/15/18 14:14 - Medical History PMH: Anemia, Anxiety, Arthritis, Asthma, Back Problems, Bipolar Disorder, Depression, HTN, Malignancy (Colon), Rheumatoid Arthritis, Schizophrenia Denies: Chronic Kidney Disease Other Surgeries: Left knee TKR, Tubal ligation, Right subclavian port - [facility] Procedures CLOSED ENDOSCOPIC BIOPSY OF LARGE INTESTINE (05/23/14) COLONOSCOPY (08/12/14) DX ULTRASOUND-ABDOMEN (05/23/14) EXCISION OF STOMACH, ENDO, DIAGN (01/13/18) INSERTION OF TOTALLY IMPLANTABLE VASC ACCESS DEVIC (05/23/14) LAPAROSCOP LYSIS-PERITONEAL ADHES (05/23/14) LAPAROSCOPIC SIGMOIDECTOMY (05/23/14) OTHER ENDOSCOPY OF SM INTEST (05/23/14) PACKED CELL TRANSFUSION (05/23/14) PERCUTAN NEEDLE BX OF LIVER (05/23/14) REMOVAL OF VAD FROM TRUNK SUBCU/FASCIA, PERC APPROACH (03/16/15) Family History: States: Unknown Family Hx - Social History Hx Tobacco Use: No Hx Alcohol Use: No Hx Substance Use: No - Immunization History Hx Tetanus Toxoid Vaccination: No Hx Influenza Vaccination: Yes Hx Pneumococcal Vaccination: No Review Of Systems Except As Marked, All Systems Reviewed And Found Negative. Constitutional: Negative for: Fever Eyes: Negative for: Vision Change Cardiovascular: Positive for: Chest Pain. Negative for: Palpitations Respiratory: Negative for: Cough, Shortness of Breath Gastrointestinal: Negative for: Nausea, Vomiting, Abdominal Pain, Diarrhea Musculoskeletal: Negative for: Back Pain Skin: Negative for: Rash Neurological: Positive for: Numbness (to left arm, left leg, and left side of face). Negative for: Weakness, Change in Speech, Confusion, Headache, Dizziness Physical Exam - Physical Exam Appears: Non-toxic, No Acute Distress Skin: Warm, Dry, No Diaphoretic Head: Atraumatic, Normacephalic Eye(s): bilateral: Normal Inspection, PERRL, EOMI Neck: Supple Chest: Symmetrical, No Tenderness, No Ecchymosis Cardiovascular: Rhythm Regular Respiratory: Normal Breath Sounds, No Accessory Muscle Use Gastrointestinal/Abdominal: Soft, No Tenderness, No Distention Extremity: Bilateral: Atraumatic, Normal Color And Temperature, Normal ROM Pulses: Left Dorsalis Pedis: Normal, Right Dorsalis Pedis: Normal Neurological/Psych: Oriented x3, Normal Cranial Nerves (2-12 grossly intact), Normal Motor (Strength equal bilaterally, no pronator drift), No Normal Sensation (Decreased sensation to the entirety of left leg, arm, and left side of face) Gait: Unable To Assess Extremity: Right: No Drift, Left: No Drift ED Course And Treatment - Laboratory Results Result Diagrams: 04/15/18 15:06 04/15/18 15:06 ECG: Viewed By Az ECG Rhythm: Sinus Rhythm, Nonspecific Changes Interpretation Of ECG: Rate 99; NSR; Prolonged QT, otherwise normal intervals; No STEMI, nonspecific ST/T wave changes O2 Sat by Pulse Oximetry: 98 (RA) Pulse Ox Interpretation: Normal - Radiology CXR: Viewed By Az CXR Interpretation: Yes: No Acute Disease - CT Scan/US CT Head Other Rad Studies (CT/US): Read By Radiologist, Radiology Report Reviewed CT/US Interpretation: Accession No. : [id number]. Patient Name / ID : PELON CRUZ / [id number]. Exam Date : 04/15/2018 14:44:54 ( Approved ). Study Comment : Sex / Age : F / 47Y. Creator : Iesha Álvarez. Dictator : Savana Trammell MD. Criminal Investigator Customs : Home Care Consultant : Savana Trammell MD. Approver2 : Report Date : 04/15/2018 14:51:10. My Comment : . Date of service: 04/15/2018. PROCEDURE: CT HEAD WITHOUT CONTRAST. HISTORY: Code Stroke. COMPARISON: 02/03/2018. TECHNIQUE: Axial computed tomography images were obtained through the head/brain without intravenous contrast. Radiation dose: Total exam DLP = 1127.29 mGy-cm. This CT exam was performed using one or more of the following dose reduction techniques: Automated exposure control, adjustment of the mA and/or kV according to patient size, and/or use of iterative reconstruction technique. FINDINGS: HEMORRHAGE: No intracranial hemorrhage. BRAIN: Waldrop-white matter differentiation is preserved. There is no mass, mass effect or abnormal extra-axial fluid collection. There is no territorial infarction. The midline sagittal structures are normal. VENTRICLES: There is mild age advanced global parenchymal volume loss and proportionate enlargement of the ventricles and cortical sulci. CALVARIUM: There is no calvarial fracture or extracranial soft tissue swelling. PARANASAL SINUSES: Predominantly clear. MASTOID AIR CELLS: Predominantly clear. OTHER FINDINGS: None. IMPRESSION: No acute intracranial abnormality. If there is a persistent focal neurologic deficit and an ongoing clinical concern for acute infarction, an MRI of the brain without intravenous contrast would be a more sensitive modality for evaluation of hyperacute/acute ischemic infarction. Important findings were discussed with the provider attending in the ER on 04/15/2018 at 2:55 p.m. CTA Head/Neck Other Rad Studies (CT/US): Read By Radiologist, Radiology Report Reviewed CT/US Interpretation: Accession No. : [id number]. Patient Name / ID : PELON CRUZ / [id number]. Exam Date : 04/15/2018 14:53:03 ( Approved ). Study Comment : Sex / Age : F / 47Y. Creator : Iesha Álvarez. Dictator : Savana Trammell MD. Criminal Investigator Customs : Home Care Consultant : Savana Trammell MD. Approver2 : Report Date : 04/15/2018 15:05:41. My Comment : . Date of service: 04/15/2018. PROCEDURE: CTA HEAD AND NECK WITH CONTRAST. HISTORY: code stroke, left side numbness. COMPARISON: None available. TECHNIQUE: Initial noncontrast head CT was performed. Subsequently, CT angiogram of the head and neck were performed after the intravenous administration of 80 mL of Omnipaque 350. Contiguous 1.5mm thick images were obtained in the axial plane of the neck. 2-D coronal and sagittal MPR images were obtained. Imaging postprocessing was performed with 3-D images also obtained. A delayed contrast head CT was also obtained. This CT exam was performed using one or more of the following dose reduction techniques: Automated exposure control, adjustment of the mA and/or kV according to patient size, and/or use of iterative reconstruction technique. Contrast dose: 100 mL Visipaque 320. Radiation dose: Total exam DLP = 598.92 mGy-cm. FINDINGS: HEAD: Right: The intracranial internal carotid artery, and anterior and middle cerebral arteries are widely patent. Left: The intracranial internal carotid artery, and anterior and middle cerebral arteries are widely patent. Posterior circulation: The visualized intracranial vertebral arteries, basilar artery and posterior cerebral arteries are widely patent. There is origin of right posterior cerebral artery, an anatomic variant. There is no endoluminal filling defect to suggest thrombus. There is no intracranial saccular aneurysm. NECK: There is a three vessel aortic arch. There is no stenosis at the origins of the great vessels at the level of the aortic arch. No atherosclerotic calcification or mural plaque present. Right Carotid: On the right, the common carotid, internal carotid and external carotid arteries are widely patent. There is no hemodynamically significant stenosis in the internal carotid artery by NASCET criteria. Left Carotid: On the left, the common carotid, internal carotid and external carotid arteries are widely patent. There is no hemodynamically significant stenosis in the internal carotid artery by NASCET criteria. The vertebral arteries are widely patent. The left vertebral artery is hypoplastic, an anatomic variant. The visualized soft tissues of the neck are normal. The visualized brain and cervical spine are within normal limits. There is a peripheral 12 mm noncalcified nodule in the posterior segment of the right upper lobe (series 2, image 20). IMPRESSION: 1. No evidence of endoluminal thrombus,occlusion or definite significant stenosis in the intracranial arteries. 2. No evidence of hemodynamically significant stenosis in the internal carotid arteries. 3. Patent bilateral vertebral arteries. 5. 12 mm parenchyma nodule in the posterior segment of the right upper lobe. Dedicated CT scan of the thorax is recommended for complete evaluation of the lungs. Correlation with histopathologic/PET-CT may be performed as clinically indicated. The final report is tagged to the PA review folder. NIHSS Stroke Scale - Date/Time Evaluation Performed Date Performed: 04/15/18 Time Performed: 14:30 - How Severe is the Stoke Level of Consciousness: 0=Alert LOC to Questions: 0=Both comments correct LOC to commands: 0=Obeys both correctly Best Gaze: 0=Normal Visual: 0=No visual loss Facial: 0=Normal Motor Arm - Left: 0=No drift Motor Arm - Right: 0=No drift Motor Leg - Left: 0=No drift Motor Leg - Right: 0=No drift Limb Ataxia: 0=Absent Sensory: 2=Severe to total loss Best Language: 0=No aphasia Dysarthia: 0=Normal articulation Extinction & Inattention (Neglect): 0=Normal, no object Score: 2 rTPA Inclusion/Exclusion - Refusal of Treatment Patient Refused Treatment: No - Inclusion Criteria for Altepase Patient is 18 years or Older: Yes The Clinical Diagnosis of Ischemic Stroke That is Causing a Potentially Disabling Neurological Deficit: No Time of Onset is Well Established to be Less Than 270 Minute Before Treatment Would Begin: Yes Risk/Benefit Discussed With Patient/Family Member Present: Yes - Exclusion Criteria for Altepase Uncontrolled Hypertension at Time of Treatment (Systolic BP above 185 or Diastolic BP above 110 mmHg): No Evidence of Major Acute Infarct With Signs Greater Than 1/3 MCA Territory: No - Warning to TPA With Conditions Following Conditions Weighed Against Anticipated Benefit: Yes Condition: Stroke Serevity Too Mild, Rapid Improvement Medical Decision Making Medical Decision Makin:31PM Patient also seen and evaluated by ED attending Dr. Moran at bedside, who recommends activation of stroke protocol. Agrees with physical exam findings. Code Stroke initiated. Initial Plan: - CT Head - CTA Head/Neck - EKG - Chest x-ray - Bloodwork - Troponin, lipid panel - PTT/PT - Urinalysis - NS IV fluids - Stroke team consult 14:55 Received call from radiology, CT Head is negative. ASA given. CTA also negative for acute intracranial or carotid pathology, shows lung nodule. Labwork reviewed, total cholesterol elevated, otherwise unremarkable CXR shows no active disease EKG shows rate 99, prolonged QT, no stemi 15:[address] Moran and Dr. Samaniego, who states patient is not a tPA candidate secondary to low NIHSS. Recommends MRI brain without contrast. Will followup case in hospital 15:[address] Tila Harris, will admit patient for telemetry observation with diagnoses of chest pain and left-sided numbness, pending brain MRI. Disposition Counseled Patient/Family Regarding: Studies Performed, Diagnosis - Disposition Disposition: HOSPITALIZED Disposition Time: 15:39 Condition: GOOD - POA Core Measure Indicators: Chest Pain, Code Stroke - Clinical Impression Clinical Impression: Chest pain, Left sided numbness, Lung nodule - PA / PROTOTYPE ENGINEER MANAGER / Resident Statement MD/DO has reviewed & agrees with the documentation as recorded. - Scribe Statement The provider has reviewed the documentation as recorded by the Scribirasema Win All medical record entries made by the Gloria were at my direction and personally dictated by me. I have reviewed the chart and agree that the record accurately reflects my personal performance of the history, physical exam, medical decision making, and the department course for this patient. I have also personally directed, reviewed, and agree with the discharge instructions and disposition.
[2018-04-15] MEDS ORDERED: Iodixanol 320 MG/ML 100 ML BOTTLE IV ONE (14:54)
--- NOTE | 2018-04-15 15:07 | CT ---
Date of service: 04/15/2018 PROCEDURE: CT HEAD WITHOUT CONTRAST. HISTORY: Code Stroke COMPARISON: 02/03/2018. TECHNIQUE: Axial computed tomography images were obtained through the head/brain without intravenous contrast. Radiation dose: Total exam DLP = 1127.29 mGy-cm. This CT exam was performed using one or more of the following dose reduction techniques: Automated exposure control, adjustment of the mA and/or kV according to patient size, and/or use of iterative reconstruction technique. FINDINGS: HEMORRHAGE: No intracranial hemorrhage. BRAIN: Waldrop-white matter differentiation is preserved. There is no mass, mass effect or abnormal extra-axial fluid collection. There is no territorial infarction. The midline sagittal structures are normal. VENTRICLES: There is mild age advanced global parenchymal volume loss and proportionate enlargement of the ventricles and cortical sulci. CALVARIUM: There is no calvarial fracture or extracranial soft tissue swelling. PARANASAL SINUSES: Predominantly clear. MASTOID AIR CELLS: Predominantly clear. OTHER FINDINGS: None. IMPRESSION: No acute intracranial abnormality. If there is a persistent focal neurologic deficit and an ongoing clinical concern for acute infarction, an MRI of the brain without intravenous contrast would be a more sensitive modality for evaluation of hyperacute/acute ischemic infarction. Important findings were discussed with the provider attending in the ER on 04/15/2018 at 2:55 p.m.
[2018-04-15 15:10] LABS: BASO % 0.3 % (0.0-2.0); EOS % 0.8 % (0.0-4.0); HEMOGLOBIN 11.5 g/dL (11.0-16.0); LYMPH # 1.1 K/uL (1.0-4.3); LYMPH % 29.4 % (20.0-40.0); MEAN CELL VOLUME 81.2 fL (81.0-99.0); MEAN CORPUSCULAR HEMOGLOBIN 26.3 pg (27.0-31.0); MEAN CORPUSCULAR HGB CONC 32.4 g/dL (33.0-37.0); MEAN PLATELET VOLUME 8.7 fL (7.2-11.7); MONO # 0.2 K/uL (0.0-0.8); MONO % 6.3 % (0.0-10.0); NEUT # 2.3 K/uL (1.8-7.0); NEUT % 63.2 % (50.0-75.0); NRBC % 0.2 % (0.0-2.0); RBC 4.38 Mil/uL (3.80-5.20); RED CELL DISTRIBUTION WIDTH 19.3 % (11.5-14.5); WHITE BLOOD COUNT 3.6 K/uL (4.8-10.8)
[2018-04-15 15:17] LABS: INR 1.1; PROTHROMBIN TIME 12.1 SECONDS (9.7-12.2)
[2018-04-15] MEDS: Sodium Chloride 0.9% 1,000 ML IV SCH (15:20)
[2018-04-15 15:26] LABS: ALB/GLOB RATIO 1.5 (1.0-2.1); ALBUMIN 4.1 g/dL (3.5-5.0); ALT/SGPT 31 U/L (9-52); AST/SGOT 29 U/L (14-36); BLOOD UREA NITROGEN 14 mg/dL (7-17); CALCIUM 8.9 mg/dl (8.6-10.4); GFR NON-AFRICAN AMERICAN > 60; HDL CHOLESTEROL 52 mg/dL (30-70)
[2018-04-15 15:27] LABS: SQUAMOUS EPITHIAL 1 /hpf (0-5); URINE BILIRUBIN NEGATIVE (NEGATIVE); URINE BLOOD NEGATIVE (NEGATIVE); URINE CLARITY Clear (Clear); URINE COLOR Straw (YELLOW); URINE GLUCOSE (UA) NORMAL (Normal); URINE LEUKOCYTE ESTERASE NEG Leu/uL (Negative); URINE PROTEIN NEGATIVE (NEGATIVE); URINE UROBILINOGEN NORMAL mg/dL (0.2-1.0)
--- NOTE | 2018-04-15 15:30 | CT ---
Date of service: 04/15/2018 PROCEDURE: CTA HEAD AND NECK WITH CONTRAST HISTORY: code stroke, left side numbness COMPARISON: None available. TECHNIQUE: Initial noncontrast head CT was performed. Subsequently, CT angiogram of the head and neck were performed after the intravenous administration of 80 mL of Omnipaque 350. Contiguous 1.5mm thick images were obtained in the axial plane of the neck. 2-D coronal and sagittal MPR images were obtained. Imaging postprocessing was performed with 3-D images also obtained. A delayed contrast head CT was also obtained. This CT exam was performed using one or more of the following dose reduction techniques: Automated exposure control, adjustment of the mA and/or kV according to patient size, and/or use of iterative reconstruction technique. Contrast dose: 100 mL Visipaque 320 Radiation dose: Total exam DLP = 598.92 mGy-cm. FINDINGS: HEAD: Right: The intracranial internal carotid artery, and anterior and middle cerebral arteries are widely patent. Left: The intracranial internal carotid artery, and anterior and middle cerebral arteries are widely patent. Posterior circulation: The visualized intracranial vertebral arteries, basilar artery and posterior cerebral arteries are widely patent. There is origin of right posterior cerebral artery, an anatomic variant. There is no endoluminal filling defect to suggest thrombus. There is no intracranial saccular aneurysm. NECK: There is a three vessel aortic arch. There is no stenosis at the origins of the great vessels at the level of the aortic arch. No atherosclerotic calcification or mural plaque present. Right Carotid: On the right, the common carotid, internal carotid and external carotid arteries are widely patent. There is no hemodynamically significant stenosis in the internal carotid artery by NASCET criteria. Left Carotid: On the left, the common carotid, internal carotid and external carotid arteries are widely patent. There is no hemodynamically significant stenosis in the internal carotid artery by NASCET criteria. The vertebral arteries are widely patent. The left vertebral artery is hypoplastic, an anatomic variant. The visualized soft tissues of the neck are normal. The visualized brain and cervical spine are within normal limits. There is a peripheral 12 mm noncalcified nodule in the posterior segment of the right upper lobe (series 2, image 20). IMPRESSION: 1. No evidence of endoluminal thrombus,occlusion or definite significant stenosis in the intracranial arteries. 2. No evidence of hemodynamically significant stenosis in the internal carotid arteries. 3. Patent bilateral vertebral arteries. 5. 12 mm parenchyma nodule in the posterior segment of the right upper lobe. Dedicated CT scan of the thorax is recommended for complete evaluation of the lungs. Correlation with histopathologic/PET-CT may be performed as clinically indicated. The final report is tagged to the PA review folder.
[2018-04-15 15:33] LABS: LDL CHOLESTEROL 112 mg/dL (0-129)
--- NOTE | 2018-04-15 16:35 | RAD ---
Date of service: 04/15/2018 HISTORY: Code Stroke COMPARISON: . FINDINGS: The right MediPort terminates in the SVC. LUNGS: The lungs are well inflated and clear. PLEURA: No pleural effusions or pneumothorax. CARDIOVASCULAR: The heart is normal in size. No aortic atherosclerotic calcifications present. OSSEOUS STRUCTURES: Within normal limits for the patient's age. VISUALIZED UPPER ABDOMEN: Normal. OTHER FINDINGS: None. IMPRESSION: No acute findings.
--- NOTE | 2018-04-15 17:12 | MRI ---
Date of service: 04/15/2018 PROCEDURE: MRI BRAIN WITHOUT CONTRAST HISTORY: L sided numbness COMPARISON: Noncontrast head CT performed earlier the same day. TECHNIQUE: Multiplanar, multisequence MR images of the brain were obtained without intravenous contrast enhancement. FINDINGS: HEMORRHAGE: None DWI: No evidence of an acute or early subacute infarction. BRAIN PARENCHYMA: There are few scattered T2/FLAIR hyperintense foci in the subcortical supratentorial white matter.. There is no mass, mass effect or abnormal extra-axial fluid collection. There is no territorial infarction. The midline sagittal structures are normal. VENTRICLES: There is mild age advanced global parenchymal volume loss and proportionate enlargement of the ventricles and cortical sulci. CRANIUM: There is diffuse T1 and T2 hypointense signal in the calvarium. ORBITS: Grossly unremarkable. PARANASAL SINUSES/MASTOIDS: Predominantly clear. VASCULAR SYSTEM: There are normal signal voids in the larger intracranial arteries. OTHER FINDINGS: None. IMPRESSION: 1. No acute intracranial abnormality. 2. Mild age advanced global parenchymal volume loss. 3. Mild supratentorial white matter changes are strictly nonspecific. The differential considerations include migraine headache effect, gliosis, early chronic microangiopathic changes and demyelinating disease amongst others. Clinical follow-up is advised. 4. Diffuse diminished signal in the calvarium is nonspecific and could be related to marrow infiltrative process or anemia of chronic disease. Clinical follow-up is advised.
--- NOTE | 2018-04-15 18:03 | CP.PCM.HP ---
Past Patient History - Infectious Disease Hx of Infectious Diseases: None - Past Medical History & Family History Past Medical History?: Yes - Past Social History Smoking Status: Never Smoked - CARDIAC Hx Hypertension: Yes - PULMONARY Hx Asthma: Yes - NEUROLOGICAL Hx Neurological Disorder: No - HEENT Hx HEENT Problems: No - RENAL Hx Chronic Kidney Disease: No - ENDOCRINE/METABOLIC Hx Endocrine Disorders: No - HEMATOLOGICAL/ONCOLOGICAL Hx Anemia: Yes - INTEGUMENTARY Hx Dermatological Problems: No - MUSCULOSKELETAL/RHEUMATOLOGICAL Hx Arthritis: Yes Hx Rheumatoid Arthritis: Yes - GASTROINTESTINAL Hx Gastrointestinal Disorders: Yes Hx Bowel Surgery: Yes Other/Comment: COLON CANCER STAGE 4 WITH CHEMOTHERAPY. R side port a cath - GENITOURINARY/GYNECOLOGICAL Hx Genitourinary Disorders: No - PSYCHIATRIC Hx Anxiety: Yes Hx Bipolar Disorder: Yes Hx Depression: Yes Hx Schizophrenia: Yes Hx Substance Use: No - SURGICAL HISTORY Hx Surgeries: Yes (SEE COMMENT) Hx Orthopedic Surgery: Yes (left knee TKR 03/2017) Hx Tubal Ligation: Yes (2005) Hx Vascular Access Device: Yes (RIGHT SUBCLAVIAN 2014) Other/Comment: colon cancer surgery april 2014 to remove tumor, rt side subclavian Port - ANESTHESIA Hx Anesthesia: Yes Hx Anesthesia Reactions: No Hx Malignant Hyperthermia: No Meds Allergies/Adverse Reactions: Allergies Allergy/AdvReac Type Severity Reaction Status Date / Time No Known Allergies Allergy Verified 04/15/18 14:17 Physical Exam - Constitutional Appears: Well - Head Exam Head Exam: ATRAUMATIC, NORMAL INSPECTION, NORMOCEPHALIC - Eye Exam Eye Exam: EOMI, Normal appearance, PERRL Pupil Exam: NORMAL ACCOMODATION, PERRL - ENT Exam ENT Exam: Mucous Membranes Moist, Normal Exam - Neck Exam Neck exam: Positive for: Normal Inspection - Respiratory Exam Respiratory Exam: Decreased Breath Sounds - Cardiovascular Exam Cardiovascular Exam: REGULAR RHYTHM, +S1, +S2 - GI/Abdominal Exam GI & Abdominal Exam: Diminished Bowel Sounds, Soft - Rectal Exam Rectal Exam: Deferred Results - Vital Signs Recent Vital Signs: Last Vital Signs Temp 97.3 F L 04/15/18 17:38 Pulse 91 H 04/15/18 17:38 Resp 20 04/15/18 17:38 BP 155/92 H 04/15/18 17:38 Pulse Ox 98 04/15/18 17:38 - Labs Result Diagrams: 04/15/18 15:06 04/15/18 15:06 Labs: Laboratory Results - last 24 hr 04/15/18 04/15/18 04/15/18 14:35 15:06 15:06 WBC 3.6 L RBC 4.38 Hgb 11.5 Hct 35.6 MCV 81.2 MCH 26.3 L MCHC 32.4 L RDW 19.3 H Plt Count 181 MPV 8.7 Neut % (Auto) 63.2 Lymph % (Auto) 29.4 Zavala % (Auto) 6.3 Eos % (Auto) 0.8 Baso % (Auto) 0.3 Neut # (Auto) 2.3 Lymph # (Auto) 1.1 Zavala # (Auto) 0.2 Eos # (Auto) 0.0 Baso # (Auto) 0.0 PT 12.1 INR 1.1 APTT 27 Sodium Potassium Chloride Carbon Dioxide Anion Gap BUN Creatinine Est GFR ( Amer) Est GFR (Non-Af Amer) POC Glucose (mg/dL) 105 Random Glucose Hemoglobin A1c Calcium Total Bilirubin AST ALT Alkaline Phosphatase Troponin I Total Protein Albumin Globulin Albumin/Globulin Ratio Triglycerides Cholesterol LDL Cholesterol Direct HDL Cholesterol Urine Color Urine Clarity Urine pH Ur Specific [place] Urine Protein Urine Glucose (UA) Urine Ketones Urine Blood Urine Nitrate Urine Bilirubin Urine Urobilinogen Ur Leukocyte Esterase Urine WBC (Auto) Ur Squamous Epith Cells Blood Type Antibody Screen 04/15/18 04/15/18 04/15/18 15:06 15:06 15:20 WBC RBC Hgb Hct MCV MCH MCHC RDW Plt Count MPV Neut % (Auto) Lymph % (Auto) Zavala % (Auto) Eos % (Auto) Baso % (Auto) Neut # (Auto) Lymph # (Auto) Zavala # (Auto) Eos # (Auto) Baso # (Auto) PT INR APTT Sodium 139 Potassium 3.8 Chloride 105 Carbon Dioxide 25 Anion Gap 13 BUN 14 Creatinine 0.8 Est GFR ( Amer) > 60 Est GFR (Non-Af Amer) > 60 POC Glucose (mg/dL) Random Glucose 97 D Hemoglobin A1c 4.8 Calcium 8.9 Total Bilirubin 0.4 AST 29 ALT 31 Alkaline Phosphatase 76 Troponin I < 0.0120 Total Protein 6.9 Albumin 4.1 Globulin 2.8 Albumin/Globulin Ratio 1.5 Triglycerides 239 H D Cholesterol 193 LDL Cholesterol Direct 112 HDL Cholesterol 52 Urine Color Straw Urine Clarity Clear Urine pH 6.0 Ur Specific [place] 1.012 Urine Protein Negative Urine Glucose (UA) Normal Urine Ketones Negative Urine Blood Negative Urine Nitrate Negative Urine Bilirubin Negative Urine Urobilinogen Normal Ur Leukocyte Esterase Neg Urine WBC (Auto) < 1 Ur Squamous Epith Cells 1 Blood Type Antibody Screen 04/15/18 15:20 WBC RBC Hgb Hct MCV MCH MCHC RDW Plt Count MPV Neut % (Auto) Lymph % (Auto) Zavala % (Auto) Eos % (Auto) Baso % (Auto) Neut # (Auto) Lymph # (Auto) Zavala # (Auto) Eos # (Auto) Baso # (Auto) PT INR APTT Sodium Potassium Chloride Carbon Dioxide Anion Gap BUN Creatinine Est GFR ( Amer) Est GFR (Non-Af Amer) POC Glucose (mg/dL) Random Glucose Hemoglobin A1c Calcium Total Bilirubin AST ALT Alkaline Phosphatase Troponin I Total Protein Albumin Globulin Albumin/Globulin Ratio Triglycerides Cholesterol LDL Cholesterol Direct HDL Cholesterol Urine Color Urine Clarity Urine pH Ur Specific [place] Urine Protein Urine Glucose (UA) Urine Ketones Urine Blood Urine Nitrate Urine Bilirubin Urine Urobilinogen Ur Leukocyte Esterase Urine WBC (Auto) Ur Squamous Epith Cells Blood Type A POSITIVE Antibody Screen Negative
[2018-04-15] MEDS ORDERED: Naproxen 275 mg Tab PO PRN (19:01)
[2018-04-16] MEDS: Sodium Chloride 0.9% 1,000 ML IV SCH ×3 (00:45→21:22)
[2018-04-16] MEDS: Diclofenac Sodium Delayed Release 50 mg EC Tab PO SCH ×2 (09:23→17:59)
[2018-04-16] MEDS: Enoxaparin 40 mg Syringe SC SCH (09:24)
--- NOTE | 2018-04-16 17:30 | CP.PCM.PN ---
Subjective - Date & Time of Evaluation Date of Evaluation: 04/16/18 Time of Evaluation: 12:15 - Subjective Subjective: clinically same Objective - Vital Signs/Intake and Output Vital Signs (last 24 hours): Temp Pulse Resp BP Pulse Ox 97.5 F L 92 H 20 122/84 99 04/16/18 07:45 04/16/18 15:23 04/16/18 07:45 04/16/18 07:45 04/16/18 08:56 Intake and Output: 04/16/18 04/16/18 06:59 18:59 Intake Total 800 Balance 800 - Medications Medications: Current Medications Aspirin (Ecotrin) 81 mg PO DAILY [facility] Clonazepam (Klonopin) 2 mg PO TID [facility] Last Admin: 04/16/18 13:40 Dose: 2 mg Diclofenac Sodium (Voltaren) 50 mg PO BID [facility] Last Admin: 04/16/18 09:23 Dose: 50 mg Enoxaparin Sodium (Lovenox) 40 mg SC DAILY [facility] Last Admin: 04/16/18 09:24 Dose: 40 mg Escitalopram Oxalate (Lexapro) 20 mg PO DAILY [facility] Last Admin: 04/16/18 09:23 Dose: 20 mg Home Med (Solifenacin Succinate [Vesicare]) 5 mg PO DAILY [facility] Hydromorphone HCl (Dilaudid) 2 mg IVP Q6 PRN PRN Reason: Pain, moderate (4-7) Last Admin: 04/16/18 16:30 Dose: 2 mg Sodium Chloride (Sodium Chloride 0.9%) 1,000 mls @ 100 mls/hr IV .Q10H [facility] Last Admin: 04/16/18 05:20 Dose: 100 mls/hr Naproxen (Anaprox) 275 mg PO BID PRN PRN Reason: Pain Risperidone (Risperdal Tab) 2 mg PO BID [facility] Last Admin: 04/16/18 09:24 Dose: 2 mg Rosuvastatin Calcium (Crestor) 10 mg PO HS [facility] Zolpidem Tartrate (Ambien) 5 mg PO HS [facility] Last Admin: 04/15/18 22:18 Dose: 5 mg - Labs Labs: 04/15/18 15:06 04/15/18 15:06 PT 12.1 SECONDS (9.7-12.2) 04/15/18 15:06 INR 1.1 04/15/18 15:06 APTT 27 SECONDS (21-34) 04/15/18 15:06
--- NOTE | 2018-04-16 21:48 | CARD ---
APPROVED REPORT Date of service: 04/15/2018 EKG Measurement Heart [id number] <Conclusion> Normal sinus rhythm Minimal voltage criteria for LVH, may be normal variant Prolonged QT Abnormal ECG
--- NOTE | 2018-04-16 22:03 | CP.PCM.CON ---
History of Present Illness - History of Present Illness History of Present Illness: Neurology consult called by Dr Cooper 47 yr old woman who presents with half hour onset of numbness and tingling of left arm face and leg, accompanied with pain, not a TPA candidate due to low NIH score and partially resolving deficits. Patient was watching TV when she suddenly experienced pain of her left arm with numbness and tingling. Miss Hsieh on my examination did not have any weakness, no aphasia, no dysarthria, no headache, but did complain of numbness and tingling of her arm and leg. MRI Brain is normal, with no stroke, as is CTA head and neck. NIHSS: 0. The patient has had no prior history of events, no migraine, no stroke, no seizures. ROS: no headache, no nausea, no vomiting, no diarrhea, no blurriness of vision, 12 point review of systems was negative. ON exam: Normal neurological examination. Past Patient History - Infectious Disease Hx of Infectious Diseases: None - Past Medical History & Family History Past Medical History?: Yes - Past Social History Smoking Status: Never Smoked - CARDIAC Hx Hypertension: Yes - PULMONARY Hx Asthma: Yes - NEUROLOGICAL Hx Neurological Disorder: No - HEENT Hx HEENT Problems: No - RENAL Hx Chronic Kidney Disease: No - ENDOCRINE/METABOLIC Hx Endocrine Disorders: No - HEMATOLOGICAL/ONCOLOGICAL Hx Anemia: Yes - INTEGUMENTARY Hx Dermatological Problems: No - MUSCULOSKELETAL/RHEUMATOLOGICAL Hx Arthritis: Yes Hx Rheumatoid Arthritis: Yes - GASTROINTESTINAL Hx Gastrointestinal Disorders: Yes Hx Bowel Surgery: Yes Other/Comment: COLON CANCER STAGE 4 WITH CHEMOTHERAPY. R side port a cath - GENITOURINARY/GYNECOLOGICAL Hx Genitourinary Disorders: No - PSYCHIATRIC Hx Anxiety: Yes Hx Bipolar Disorder: Yes Hx Depression: Yes Hx Schizophrenia: Yes Hx Substance Use: No - SURGICAL HISTORY Hx Surgeries: Yes (SEE COMMENT) Hx Orthopedic Surgery: Yes (left knee TKR 03/2017) Hx Tubal Ligation: Yes (2005) Hx Vascular Access Device: Yes (RIGHT SUBCLAVIAN 2014) Other/Comment: colon cancer surgery april 2014 to remove tumor, rt side subclavian Port - ANESTHESIA Hx Anesthesia: Yes Hx Anesthesia Reactions: No Hx Malignant Hyperthermia: No Meds Allergies/Adverse Reactions: Allergies Allergy/AdvReac Type Severity Reaction Status Date / Time No Known Allergies Allergy Verified 04/15/18 14:17 - Medications Medications: Current Medications Aspirin (Ecotrin) 81 mg PO DAILY [facility] Clonazepam (Klonopin) 2 mg PO TID [facility] Last Admin: 04/16/18 17:59 Dose: 2 mg Diclofenac Sodium (Voltaren) 50 mg PO BID [facility] Last Admin: 04/16/18 17:59 Dose: 50 mg Enoxaparin Sodium (Lovenox) 40 mg SC DAILY [facility] Last Admin: 04/16/18 09:24 Dose: 40 mg Escitalopram Oxalate (Lexapro) 20 mg PO DAILY [facility] Last Admin: 04/16/18 09:23 Dose: 20 mg Home Med (Solifenacin Succinate [Vesicare]) 5 mg PO DAILY [facility] Hydromorphone HCl (Dilaudid) 2 mg IVP Q6 PRN PRN Reason: Pain, moderate (4-7) Last Admin: 04/16/18 16:30 Dose: 2 mg Sodium Chloride (Sodium Chloride 0.9%) 1,000 mls @ 100 mls/hr IV .Q10H [facility] Last Admin: 04/16/18 05:20 Dose: 100 mls/hr Naproxen (Anaprox) 275 mg PO BID PRN PRN Reason: Pain Risperidone (Risperdal Tab) 2 mg PO BID [facility] Last Admin: 04/16/18 17:59 Dose: 2 mg Rosuvastatin Calcium (Crestor) 10 mg PO HS [facility] Zolpidem Tartrate (Ambien) 5 mg PO HS [facility] Last Admin: 04/15/18 22:18 Dose: 5 mg Physical Exam - Neurological Exam Neurological exam: Alert, CN II-XII Intact, Normal Gait, Oriented x3, Reflexes Normal - Expanded Neurological Exam Expanded Patient oriented to: person, place, time Cranial nerves: EOM's Intact: Normal Ataxia: No Cerebellar Function: Finger to Nose: Normal, Heel to Ayoub: Normal, Romberg: Normal Upper motor neuron: Babinski Sign: Normal, Sensory Extinction: Abnormal Left Sensory exam: Lower Extremity 2 Point Discrimination: Normal, Lower Extremity Light Touch: Normal Neuro motor strength exam: Left Upper Extremity: 5, Right Upper Extremity: 5, Left Lower Extremity: 5, Right Lower Extremity: 5 DTR: Achilles Tendon Left: 1+, Achilles Tendon Right: 1+, Bicep Left: 1+, Bicep Right: 1+, Brachioradialis Left: 1+, Brachioradialis Right: 1+ Results - Vital Signs Recent Vital Signs: Last Vital Signs Temp 97.5 F L 04/16/18 17:47 Pulse 80 04/16/18 17:47 Resp 18 04/16/18 17:47 BP 135/77 04/16/18 17:47 Pulse Ox 97 04/16/18 17:47 - Labs Result Diagrams: 04/15/18 15:06 04/15/18 15:06 Assessment & Plan - Assessment and Plan (Free Text) Assessment: 47 yr old woman who may have cervical radiculopathy, but is ruled out for ischemic stroke. I do not feel that this is a TIA as she is continuing to have symptoms of left arm and leg numbness. PLan: 1. MRI C spine outpatient. 2. Patient is cleared from neurology standpoint. Thank you Dr. Stacy Samaniego MD DPN [facility] Neurology
[2018-04-17] MEDS: Sodium Chloride 0.9% 1,000 ML IV SCH ×2 (01:08→06:01)
[2018-04-17] MEDS: Diclofenac Sodium Delayed Release 50 mg EC Tab PO SCH ×2 (09:39→17:14)
[2018-04-17] MEDS: Enoxaparin 40 mg Syringe SC SCH (09:40)
[2018-04-17] MEDS ORDERED: Pneumococcal 23-Valent Vaccine IM ONE (10:00)
[2018-04-17 15:58] VITALS: BP 134/84; PULSE 85; RESP 20; TEMP 98.2; O2SAT 96
--- NOTE | 2018-04-17 16:51 | CP.PCM.PN ---
Subjective - Date & Time of Evaluation Date of Evaluation: 04/17/18 Time of Evaluation: 16:50 Objective - Vital Signs/Intake and Output Vital Signs (last 24 hours): Temp Pulse Resp BP Pulse Ox 98.2 F 85 20 134/84 96 04/17/18 15:18 04/17/18 15:18 04/17/18 15:18 04/17/18 15:18 04/17/18 15:18 - Medications Medications: Current Medications Aspirin (Ecotrin) 81 mg PO DAILY [facility] Last Admin: 04/17/18 09:39 Dose: 81 mg Clonazepam (Klonopin) 2 mg PO TID [facility] Last Admin: 04/17/18 14:04 Dose: 2 mg Diclofenac Sodium (Voltaren) 50 mg PO BID [facility] Last Admin: 04/17/18 09:39 Dose: 50 mg Enoxaparin Sodium (Lovenox) 40 mg SC DAILY [facility] Last Admin: 04/17/18 09:40 Dose: 40 mg Escitalopram Oxalate (Lexapro) 20 mg PO DAILY [facility] Last Admin: 04/17/18 09:40 Dose: 20 mg Hydromorphone HCl (Dilaudid) 2 mg IVP Q6 PRN PRN Reason: Pain, moderate (4-7) Last Admin: 04/17/18 14:05 Dose: 2 mg Sodium Chloride (Sodium Chloride 0.9%) 1,000 mls @ 100 mls/hr IV .Q10H [facility] Last Admin: 04/17/18 06:01 Dose: Not Given Naproxen (Anaprox) 275 mg PO BID PRN PRN Reason: Pain Risperidone (Risperdal Tab) 2 mg PO BID [facility] Last Admin: 04/17/18 09:39 Dose: 2 mg Rosuvastatin Calcium (Crestor) 10 mg PO HS [facility] Last Admin: 04/16/18 21:22 Dose: 10 mg Tolterodine Tartrate (Detrol La) 4 mg PO DAILY [facility] Zolpidem Tartrate (Ambien) 5 mg PO HS [facility] Last Admin: 04/16/18 21:22 Dose: 5 mg - Labs Labs: 04/15/18 15:06 04/15/18 15:06 PT 12.1 SECONDS (9.7-12.2) 04/15/18 15:06 INR 1.1 04/15/18 15:06 APTT 27 SECONDS (21-34) 04/15/18 15:06 Assessment and Plan - Assessment and Plan (Free Text) Assessment: FOLLOW UP WITH DR Tila BIANCHI IN HIS OFFICE -----CALL FOR APPOINTMENT FOLLOW UP WITH DR FREEMAN IN HER OFFICE -----CALL FOR APPOINTMENT ADDRESS YOUR MRI C SPINE AT YOUR VISIT FOLLOW UP WITH DR COOK IN HIS OFFICE ------CALL FOR APPOINTMENT CONTINUE HOME MEDICATION NEW PRESCRIPTION GIVEN CRESTOR 10 MG PO DAILY [facility] CALL DR Tila BIANCHI OR GO TO THE EMERGENCY ROOM IF SYMPTOM RETURN OR WORSENING
[2018-04-18] MEDS ORDERED: Tolterodine 4 mg ER Cap PO SCH (10:00)
== END 2018-04-17 17:49 | disposition home or self-care (01) ==
LOC: C.ER 14:07 → C.6T 15:37
PROVIDERS: ADMIT Internal Medicine Nephrology; ATTEND Internal Medicine Nephrology
DX: R07.89 Other chest pain (principal); R20.0 Anesthesia of skin; R91.1 Solitary pulmonary nodule; I10 Essential (primary) hypertension; M06.9 Rheumatoid arthritis, unspecified; J45.909 Unspecified asthma, uncomplicated; F41.9 Anxiety disorder, unspecified; F31.9 Bipolar disorder, unspecified; F20.9 Schizophrenia, unspecified; Z85.038 Personal history of other malignant neoplasm of large intestine; Z92.21 Personal history of antineoplastic chemotherapy; Z96.652 Presence of left artificial knee joint; Z98.890 Other specified postprocedural states; Z79.82 Long term (current) use of aspirin; Z79.899 Other long term (current) drug therapy
CPT/HCPCS: 70450; 70496; 70498; 70551; 71045; 80053; 80061; 81001; 82948; 83036; 84484; 85025; 85610; 85730; 86850; 86900; 93005; 96372; 96374; 96376; 97116; 97162; 97165; 97530; 99285; G0378; G8978; G8979; G8987; G8988; G8989; J1170; J1650; J7030; Q9967

== ENCOUNTER 2018-04-29 18:44 | Observation (INO) | payer MEDICARE ==
[2018-04-29 18:44] VITALS: BMI 37.3
--- NOTE | 2018-04-29 19:35 | C.PDOC ---
History Of Present Illness 47 year old female with Hx of colon ca with mets, depression, asthma, anemia and bipolar disorder presents with chest pain that began today at 4:00pm with SOB. Patient states the pain is stabbing, left sided, nonradiating; did not take anything for the pain. She denies any fall or trauma. No leg swelling. She notes some chills but no fever, abdominal pain, or other complaints. Patient currently on chemo, last treatment on 04/19/18. PMD is Dr. Tila Harris. Time Seen by Provider: 04/29/18 19:35 Chief Complaint (Nursing): Chest Pain History Per: Patient History/Exam Limitations: no limitations Onset/Duration Of Symptoms: Hrs Current Symptoms Are (Timing): Still Present Associated Symptoms: Dyspnea. denies: Nausea, Diaphoresis, Syncope Modifying Factors: None Exacerbating Factors: None Alleviating Factors: None Recent travel outside of the [place]: No Past Medical History Reviewed: Historical Data, Nursing Documentation, Vital Signs Vital Signs: Last Vital Signs Temp 97.8 F 04/29/18 19:03 Pulse 94 H 04/29/18 19:03 Resp 16 04/29/18 19:03 BP 155/95 H 04/29/18 19:03 Pulse Ox 98 04/29/18 19:03 - Medical History PMH: Anemia, Anxiety, Arthritis, Asthma, Back Problems, Bipolar Disorder, Depression, HTN, Malignancy (Colon), Rheumatoid Arthritis, Schizophrenia Denies: Chronic Kidney Disease - [facility] Procedures CLOSED ENDOSCOPIC BIOPSY OF LARGE INTESTINE (05/23/14) COLONOSCOPY (08/12/14) DX ULTRASOUND-ABDOMEN (05/23/14) EXCISION OF STOMACH, ENDO, DIAGN (01/13/18) INSERTION OF TOTALLY IMPLANTABLE VASC ACCESS DEVIC (05/23/14) LAPAROSCOP LYSIS-PERITONEAL ADHES (05/23/14) LAPAROSCOPIC SIGMOIDECTOMY (05/23/14) OTHER ENDOSCOPY OF SM INTEST (05/23/14) PACKED CELL TRANSFUSION (05/23/14) PERCUTAN NEEDLE BX OF LIVER (05/23/14) REMOVAL OF VAD FROM TRUNK SUBCU/FASCIA, PERC APPROACH (03/16/15) Family History: States: Unknown Family Hx - Social History Hx Tobacco Use: No Hx Alcohol Use: No Hx Substance Use: No - Immunization History Hx Tetanus Toxoid Vaccination: No Hx Influenza Vaccination: Yes Hx Pneumococcal Vaccination: No Review Of Systems Constitutional: Negative for: Fever, Chills, Weakness Eyes: Negative for: Pain, Vision Change, Conjunctivae Inflammation ENT: Negative for: Ear Pain, Ear Discharge, Nose Pain, Nose Discharge, Nose Congestion, Mouth Pain, Mouth Swelling, Throat Pain Cardiovascular: Positive for: Chest Pain. Negative for: Palpitations Respiratory: Positive for: Shortness of Breath. Negative for: Cough Gastrointestinal: Negative for: Nausea, Vomiting, Abdominal Pain, Diarrhea, Constipation Genitourinary: Negative for: Dysuria, Frequency, Incontinence, Hematuria, Vaginal Discharge, Vaginal Bleeding Musculoskeletal: Negative for: Neck Pain, Back Pain Skin: Negative for: Rash Neurological: Negative for: Weakness, Numbness Physical Exam - Physical Exam Appears: Well, Non-toxic, No Acute Distress Skin: Normal Color, Warm, Dry Head: Atraumatic, Normacephalic Eye(s): bilateral: Normal Inspection, PERRL, EOMI Ear(s): Bilateral: Normal Nose: Normal, No Flaring, No Discharge Oral Mucosa: Moist Tongue: Normal Appearing Lips: Normal Appearing Throat: Normal, No Erythema, No Exudate Neck: Normal, Normal ROM, Supple, Other (no meningeal signs) Chest: Other (Right sided port) Cardiovascular: Rhythm Regular, No Edema, No Friction Rub, No Murmur, No JVD Respiratory: Normal Breath Sounds, No Decreased Breath Sounds, No Accessory Muscle Use, No Rales, No Rhonchi, No Stridor, No Wheezing, No Plerual Rub Gastrointestinal/Abdominal: Soft, No Tenderness Back: Normal Inspection, No CVA Tenderness, No Vertebral Tenderness, No Decreased ROM Extremity: Normal ROM, No Tenderness, No Pedal Edema Neurological/Psych: Oriented x3, Normal Speech, Normal Cognition Gait: Steady ED Course And Treatment - Laboratory Results Result Diagrams: 04/29/18 20:18 04/29/18 20:18 ECG: Interpreted By Me, Viewed By Me ECG Rhythm: Sinus Rhythm ECG Interpretation: Normal Interpretation Of ECG: No STEMI Rate From EC O2 Sat by Pulse Oximetry: 98 Medical Decision Making Medical Decision Makin47 year old female w/ hx of CA w/ mets, asthma, p/w chest pain w/ out wheezes. No JVD or rub noted. Will rule out PE given CP and pt will likely require serial trops for CP. Blood work and CXR ordered. 2345 labs largely unremarkable appreciate consult w/ J Harris: to admit to his service Disposition - Disposition Disposition: HOSPITALIZED Disposition Time: 23:45 Condition: GOOD - Clinical Impression Clinical Impression: Chest pain - Scribe Statement The provider has reviewed the documentation as recorded by the Scribirasema Arita All medical record entries made by the Christopheribe were at my direction and personally dictated by me. I have reviewed the chart and agree that the record accurately reflects my personal performance of the history, physical exam, medical decision making, and the department course for this patient. I have also personally directed, reviewed, and agree with the discharge instructions and disposition.
[2018-04-29 20:24] LABS: BASO % 0.4 % (0.0-2.0); HEMOGLOBIN 10.4 g/dL (11.0-16.0); LYMPH # 1.2 K/uL (1.0-4.3); LYMPH % 37.4 % (20.0-40.0); MEAN CELL VOLUME 82.6 fL (81.0-99.0); MEAN CORPUSCULAR HGB CONC 31.5 g/dL (33.0-37.0); MEAN PLATELET VOLUME 7.9 fL (7.2-11.7); MONO # 0.3 K/uL (0.0-0.8); MONO % 9.4 % (0.0-10.0); NEUT # 1.6 K/uL (1.8-7.0); NEUT % 51.8 % (50.0-75.0); NRBC % 0.3 % (0.0-2.0); RBC 4.01 Mil/uL (3.80-5.20); RED CELL DISTRIBUTION WIDTH 19.3 % (11.5-14.5); WHITE BLOOD COUNT 3.2 K/uL (4.8-10.8)
[2018-04-29 20:50] LABS: BLOOD UREA NITROGEN 8 mg/dL (7-17); GFR NON-AFRICAN AMERICAN > 60
[2018-04-29 20:51] LABS: ALB/GLOB RATIO 1.5 (1.0-2.1); ALT/SGPT 23 U/L (9-52); AST/SGOT 33 U/L (14-36); B-TYPE NATRIURETIC PEPTIDE 156 pg/mL (0-450); CALCIUM 8.7 mg/dl (8.6-10.4)
[2018-04-29] MEDS ORDERED: Oxycodone/Acetaminophen 5/325 mg Tab PO STA (21:18)
[2018-04-29] MEDS ORDERED: Oxycodone/Acetaminophen 5/325 mg Tab ONE (21:24)
[2018-04-29] MEDS ORDERED: Iohexol 350mg/ml 100 ML ONE (22:14)
[2018-04-29] MEDS ORDERED: Enoxaparin 40 mg Syringe SC ONE (23:56)
[2018-04-29] MEDS ORDERED: Home Med 1 UNIT (Naproxen [Naprosyn] 1 TAB) PO PRN (23:57)
[2018-04-30] MEDS: HYDROmorphone 1 mg/ml ISec IVP PRN ×4 (01:26→16:09)
[2018-04-30] MEDS: Albuterol HFA 90 mcg/actuation (8 g) IH SCH ×4 (08:07→19:44)
[2018-04-30] MEDS: Diclofenac Sodium Delayed Release 50 mg EC Tab PO SCH ×2 (09:12→18:16)
[2018-04-30] MEDS: Pantoprazole 40 mg EC Tab PO SCH (09:13)
[2018-04-30 10:10] VITALS: RESP 20
--- NOTE | 2018-04-30 10:27 | RAD ---
Chest x-ray single frontal view HISTORY: Chest pain. COMPARISON: 04/15/2018 Findings: Right chest wall port with tip extending to the right SVC. No focal infiltrate or effusion. Heart size within normal limits. Impression: No focal infiltrate or effusion.
--- NOTE | 2018-04-30 10:44 | CP.PCM.CON ---
History of Present Illness - History of Present Illness History of Present Illness: CC: CHest pain HPI: 47 year old female on chemo for late stage colon CA. She is reporting one day onset of chest pain. Pain is sharp in character. Pain is located in the left chest. Pain occurred while she was shopping at store. Improved with NSAIDS Review of Systems - Review of Systems All systems: reviewed and no additional remarkable complaints except Review of Systems: +Lethargy, allopecia Past Patient History - Infectious Disease Hx of Infectious Diseases: None - Past Medical History & Family History Past Medical History?: Yes - Past Social History Smoking Status: Never Smoked - CARDIAC Hx Hypertension: Yes - PULMONARY Hx Asthma: Yes - NEUROLOGICAL Hx Neurological Disorder: No - HEENT Hx HEENT Problems: No - RENAL Hx Chronic Kidney Disease: No - ENDOCRINE/METABOLIC Hx Endocrine Disorders: No - HEMATOLOGICAL/ONCOLOGICAL Hx Anemia: Yes - INTEGUMENTARY Hx Dermatological Problems: No - MUSCULOSKELETAL/RHEUMATOLOGICAL Hx Arthritis: Yes Hx Rheumatoid Arthritis: Yes - GASTROINTESTINAL Hx Gastrointestinal Disorders: Yes Hx Bowel Surgery: Yes Other/Comment: COLON CANCER STAGE 4 WITH CHEMOTHERAPY. R side port a cath - GENITOURINARY/GYNECOLOGICAL Hx Genitourinary Disorders: No - PSYCHIATRIC Hx Anxiety: Yes Hx Bipolar Disorder: Yes Hx Depression: Yes Hx Schizophrenia: Yes Hx Substance Use: No - SURGICAL HISTORY Hx Surgeries: Yes (SEE COMMENT) Hx Orthopedic Surgery: Yes (left knee TKR 03/2017) Hx Tubal Ligation: Yes (2005) Hx Vascular Access Device: Yes (RIGHT SUBCLAVIAN 2014) Other/Comment: colon cancer surgery april 2014 to remove tumor, rt side subclavian Port - ANESTHESIA Hx Anesthesia: Yes Hx Anesthesia Reactions: No Hx Malignant Hyperthermia: No Meds Allergies/Adverse Reactions: Allergies Allergy/AdvReac Type Severity Reaction Status Date / Time No Known Allergies Allergy Verified 04/29/18 19:05 - Medications Medications: Current Medications Albuterol (Ventolin Hfa 90 Mcg/Actuation (8 G)) 1 puff IH Q4 [facility] Benzonatate (Tessalon Perles) 100 mg PO TID [facility] Last Admin: 04/30/18 09:12 Dose: 100 mg Clonazepam (Klonopin) 2 mg PO TID [facility] Last Admin: 04/30/18 09:29 Dose: 2 mg Diclofenac Sodium (Voltaren) 50 mg PO BID [facility] Last Admin: 03/06/19 09:12 Dose: 50 mg Duloxetine HCl (Cymbalta) 30 mg PO DAILY [facility] Last Admin: 04/30/18 09:12 Dose: 30 mg Enoxaparin Sodium (Lovenox) 40 mg SC DAILY [facility] Escitalopram Oxalate (Lexapro) 20 mg PO DAILY [facility] Last Admin: 04/30/18 09:12 Dose: 20 mg Home Med (Solifenacin Succinate [Vesicare]) 5 mg PO DAILY [facility] Home Med (Naproxen [Naprosyn]) 1 tab PO BID PRN PRN Reason: Pain Hydromorphone HCl (Dilaudid) 1 mg IVP Q6H PRN PRN Reason: Pain, moderate (4-7) Last Admin: 04/30/18 09:07 Dose: 1 mg Lactobacillus Acidophilus (Lactobacillus) 1 cap PO HS [facility] Ondansetron HCl (Zofran Odt) 4 mg PO TID PRN PRN Reason: Nausea/Vomiting Pantoprazole Sodium (Protonix Ec Tab) 40 mg PO DAILY [facility] Last Admin: 04/30/18 09:13 Dose: 40 mg Risperidone (Risperdal Tab) 2 mg PO BID [facility] Last Admin: 04/30/18 09:12 Dose: 2 mg Rosuvastatin Calcium (Crestor) 10 mg PO HS [facility] Zolpidem Tartrate (Ambien) 5 mg PO HS [facility] Physical Exam - Constitutional Appears: Well, Non-toxic - Head Exam Head Exam: ATRAUMATIC, NORMAL INSPECTION - Eye Exam Eye Exam: PERRL. absent: Scleral icterus - ENT Exam ENT Exam: Mucous Membranes Dry, Normal External Ear Exam - Neck Exam Neck exam: Positive for: Full Rom. Negative for: Thyromegaly - Respiratory Exam Respiratory Exam: Clear to Auscultation Bilateral, NORMAL BREATHING PATTERN - Cardiovascular Exam Cardiovascular Exam: REGULAR RHYTHM, RRR, +S1, +S2. absent: JVD Additional comments: +right Subclavian mediport - GI/Abdominal Exam GI & Abdominal Exam: Normal Bowel Sounds. absent: Organomegaly - Extremities Exam Extremities exam: Negative for: calf tenderness, pedal edema - Neurological Exam Neurological exam: CN II-XII Intact, Oriented x3 - Psychiatric Exam Psychiatric exam: Normal Affect, Normal Mood Results - Vital Signs Recent Vital Signs: Last Vital Signs Temp 97.7 F 04/30/18 07:00 Pulse 82 04/30/18 07:00 Resp 20 04/30/18 07:00 BP 114/79 04/30/18 07:00 Pulse Ox 97 04/30/18 07:00 - Labs Result Diagrams: 04/29/18 20:18 04/29/18 20:18 Labs: Laboratory Results - last 24 hr 04/29/18 04/29/18 20:18 20:18 WBC 3.2 L RBC 4.01 Hgb 10.4 L Hct 33.1 L MCV 82.6 MCH 26.0 L MCHC 31.5 L RDW 19.3 H Plt Count 175 MPV 7.9 Neut % (Auto) 51.8 Lymph % (Auto) 37.4 [place] % (Auto) 9.4 Eos % (Auto) 1.0 Baso % (Auto) 0.4 Neut # (Auto) 1.6 L Lymph # (Auto) 1.2 [place] # (Auto) 0.3 Eos # (Auto) 0.0 Baso # (Auto) 0.0 Sodium 137 Potassium 3.9 Chloride 99 Carbon Dioxide 29 Anion Gap 13 BUN 8 Creatinine 0.7 Est GFR ( Amer) > 60 Est GFR (Non-Af Amer) > 60 Random Glucose 87 Calcium 8.7 Total Bilirubin 0.4 AST 33 ALT 23 Alkaline Phosphatase 70 Troponin I < 0.0120 NT-Pro-B Natriuret Pep 156 Total Protein 6.6 Albumin 4.0 Globulin 2.6 Albumin/Globulin Ratio 1.5 - EKG Data EKG Interpreted by: Myself EKG shows normal: Sinus rhythm Rate: Normal - Imaging and Cardiology Chest x-ray Status: Image reviewed by me Additional comment: No infiltrates right subclavian mediport accessed Assessment & Plan - Assessment and Plan (Free Text) Assessment: 47 year old female with chest pain. Please order serial troponin to rule out [place]. Order serial EKG there is no evidence of ischemia on current EKG. Hyperlipidemia is chronic and stable on statin CA on chemo OA chornic and stable s/p knee replacement - Date & Time Date: 04/30/18 Time: 11:29
[2018-04-30] MEDS: Enoxaparin 40 mg Syringe SC SCH (10:57)
--- NOTE | 2018-04-30 10:57 | CT ---
Date of service: 04/29/2018 CTA chest PE protocol Indication: cp/ sob, CA Technique: Contiguous axial images were obtained through the chest with intravenous contrast enhancement. Sagittal and coronal reconstructions were generated and reviewed. This CT exam was performed using 1 or more of the following dose reduction techniques: Automated exposure control, adjustment of the MAA and/or kV according to patient size, and/or use of iterative reconstruction technique. IV contrast: 100 mL Omnipaque 350 IV Radiation dose (DLP): 530.45 MGy-cm. Comparison: Chest x-ray performed 04/29/18 Findings: Right IJ approach central venous catheter extends to the cavoatrial junction. Visualized portions of the inferior thyroid gland appear unremarkable. The mediastinal and hilar vascular structures appear within normal limits. The heart appears within normal limits of size. No large central or segmental pulmonary embolus evident. No focal consolidation. No pleural effusion. No pneumothorax. 9 x 11 mm posterior right upper lobe nodule. 6 mm left apical nodule. Limited visualized portions of the upper abdomen: Partially imaged splenomegaly. Partially imaged liver demonstrates 5.5 x 3.5 cm left hepatic lobe hypodense mass with associated calcifications. Degenerative changes of the spine. Impression: Right MediPort catheter. No large central or segmental pulmonary embolus evident. 9 x 11 mm posterior right upper lobe nodule. 6 mm left apical nodule. Cardiomegaly. Limited visualized portions of the upper abdomen: Partially imaged splenomegaly. Partially liver demonstrates imaged 5.5 x 3.5 cm left hepatic lobe heterogeneous hepatic mass(es) with associated calcifications; correlate clinically. Preliminary impression was provided by [facility].
--- NOTE | 2018-04-30 19:28 | CP.PCM.HP ---
Past Patient History - Infectious Disease Hx of Infectious Diseases: None - Past Medical History & Family History Past Medical History?: Yes - Past Social History Smoking Status: Never Smoked - CARDIAC Hx Hypertension: Yes - PULMONARY Hx Asthma: Yes - NEUROLOGICAL Hx Neurological Disorder: No - HEENT Hx HEENT Problems: No - RENAL Hx Chronic Kidney Disease: No - ENDOCRINE/METABOLIC Hx Endocrine Disorders: No - HEMATOLOGICAL/ONCOLOGICAL Hx Anemia: Yes - INTEGUMENTARY Hx Dermatological Problems: No - MUSCULOSKELETAL/RHEUMATOLOGICAL Hx Arthritis: Yes Hx Rheumatoid Arthritis: Yes - GASTROINTESTINAL Hx Gastrointestinal Disorders: Yes Hx Bowel Surgery: Yes Other/Comment: COLON CANCER STAGE 4 WITH CHEMOTHERAPY. R side port a cath - GENITOURINARY/GYNECOLOGICAL Hx Genitourinary Disorders: No - PSYCHIATRIC Hx Anxiety: Yes Hx Bipolar Disorder: Yes Hx Depression: Yes Hx Schizophrenia: Yes Hx Substance Use: No - SURGICAL HISTORY Hx Surgeries: Yes (SEE COMMENT) Hx Orthopedic Surgery: Yes (left knee TKR 03/2017) Hx Tubal Ligation: Yes (2005) Hx Vascular Access Device: Yes (RIGHT SUBCLAVIAN 2014) Other/Comment: colon cancer surgery april 2014 to remove tumor, rt side subclavian Port - ANESTHESIA Hx Anesthesia: Yes Hx Anesthesia Reactions: No Hx Malignant Hyperthermia: No Meds Allergies/Adverse Reactions: Allergies Allergy/AdvReac Type Severity Reaction Status Date / Time No Known Allergies Allergy Verified 04/29/18 19:05 Physical Exam - Constitutional Appears: Well - Head Exam Head Exam: ATRAUMATIC, NORMAL INSPECTION, NORMOCEPHALIC - Eye Exam Eye Exam: EOMI, Normal appearance, PERRL Pupil Exam: NORMAL ACCOMODATION, PERRL - ENT Exam ENT Exam: Mucous Membranes Moist, Normal Exam - Neck Exam Neck exam: Positive for: Normal Inspection - Respiratory Exam Respiratory Exam: Decreased Breath Sounds - Cardiovascular Exam Cardiovascular Exam: REGULAR RHYTHM, +S1, +S2 - GI/Abdominal Exam GI & Abdominal Exam: Diminished Bowel Sounds, Soft - Rectal Exam Rectal Exam: Deferred Results - Vital Signs Recent Vital Signs: Last Vital Signs Temp 97.4 F L 04/30/18 15:10 Pulse 78 04/30/18 15:10 Resp 20 04/30/18 15:10 BP 136/91 H 04/30/18 15:10 Pulse Ox 98 04/30/18 15:10 - Labs Result Diagrams: 04/29/18 20:18 04/29/18 20:18 Labs: Laboratory Results - last 24 hr 04/29/18 04/29/18 04/30/18 20:18 20:18 17:03 WBC 3.2 L RBC 4.01 Hgb 10.4 L Hct 33.1 L MCV 82.6 MCH 26.0 L MCHC 31.5 L RDW 19.3 H Plt Count 175 MPV 7.9 Neut % (Auto) 51.8 Lymph % (Auto) 37.4 [place] % (Auto) 9.4 Eos % (Auto) 1.0 Baso % (Auto) 0.4 Neut # (Auto) 1.6 L Lymph # (Auto) 1.2 [place] # (Auto) 0.3 Eos # (Auto) 0.0 Baso # (Auto) 0.0 Sodium 137 Potassium 3.9 Chloride 99 Carbon Dioxide 29 Anion Gap 13 BUN 8 Creatinine 0.7 Est GFR ( Amer) > 60 Est GFR (Non-Af Amer) > 60 Random Glucose 87 Calcium 8.7 Total Bilirubin 0.4 AST 33 ALT 23 Alkaline Phosphatase 70 Troponin I < 0.0120 < 0.0120 NT-Pro-B Natriuret Pep 156 Total Protein 6.6 Albumin 4.0 Globulin 2.6 Albumin/Globulin Ratio 1.5
[2018-04-30] MEDS: Lactobacillus Acidophilus 500 MU Cap PO SCH (21:22)
[2018-04-30 22:52] LABS: CK-MB 0.57 ng/mL (0.0-3.38)
[2018-05-01] MEDS: HYDROmorphone 1 mg/ml ISec IVP PRN ×4 (00:23→20:52)
[2018-05-01] MEDS: Albuterol HFA 90 mcg/actuation (8 g) IH SCH ×6 (01:31→20:29)
[2018-05-01] MEDS: Pantoprazole 40 mg EC Tab PO SCH (09:43)
[2018-05-01] MEDS: Enoxaparin 40 mg Syringe SC SCH (09:43)
[2018-05-01] MEDS: Tolterodine 4 mg ER Cap PO SCH (09:44)
[2018-05-01] MEDS: Diclofenac Sodium Delayed Release 50 mg EC Tab PO SCH ×2 (09:44→18:05)
[2018-05-01] MEDS ORDERED: Naproxen 550 mg Tab PO PRN (10:00)
--- NOTE | 2018-05-01 15:52 | CP.PCM.PN ---
Subjective - Date & Time of Evaluation Date of Evaluation: 05/01/18 Time of Evaluation: 11:30 - Subjective Subjective: No CP No SOB NO fevers or chills Objective - Vital Signs/Intake and Output Vital Signs (last 24 hours): Temp Pulse Resp BP Pulse Ox 97.4 F L 80 20 104/71 99 05/01/18 08:00 05/01/18 08:00 05/01/18 08:00 05/01/18 08:00 05/01/18 08:00 Intake and Output: 05/01/18 05/01/18 06:59 18:59 Intake Total 120 600 Balance 120 600 - Medications Medications: Current Medications Albuterol (Ventolin Hfa 90 Mcg/Actuation (8 G)) 1 puff IH Q4 [facility] Last Admin: 05/01/18 11:23 Dose: Not Given Benzonatate (Tessalon Perles) 100 mg PO TID [facility] Last Admin: 05/01/18 13:16 Dose: 100 mg Clonazepam (Klonopin) 2 mg PO TID [facility] Last Admin: 05/01/18 13:16 Dose: 2 mg Diclofenac Sodium (Voltaren) 50 mg PO BID [facility] Last Admin: 05/01/18 09:44 Dose: 50 mg Duloxetine HCl (Cymbalta) 30 mg PO DAILY [facility] Last Admin: 05/01/18 09:44 Dose: 30 mg Enoxaparin Sodium (Lovenox) 40 mg SC DAILY [facility] Last Admin: 05/01/18 09:43 Dose: 40 mg Escitalopram Oxalate (Lexapro) 20 mg PO DAILY [facility] Last Admin: 05/01/18 09:44 Dose: 20 mg Hydromorphone HCl (Dilaudid) 1 mg IVP Q6H PRN PRN Reason: Pain, moderate (4-7) Last Admin: 05/01/18 13:14 Dose: 1 mg Lactobacillus Acidophilus (Lactobacillus) 1 cap PO HS [facility] Last Admin: 04/30/18 21:22 Dose: 1 cap Naproxen (Anaprox Ds) 1 mg PO BID PRN PRN Reason: Pain Ondansetron HCl (Zofran Odt) 4 mg PO TID PRN PRN Reason: Nausea/Vomiting Pantoprazole Sodium (Protonix Ec Tab) 40 mg PO DAILY [facility] Last Admin: 05/01/18 09:43 Dose: 40 mg Risperidone (Risperdal Tab) 2 mg PO BID [facility] Last Admin: 05/01/18 09:43 Dose: 2 mg Rosuvastatin Calcium (Crestor) 10 mg PO [facility] Last Admin: 04/30/18 21:22 Dose: 10 mg Tolterodine Tartrate (Detrol La) 4 mg PO DAILY [facility] Last Admin: 05/01/18 09:44 Dose: 4 mg Zolpidem Tartrate (Ambien) 5 mg PO [facility] Last Admin: 04/30/18 21:23 Dose: 5 mg - Labs Labs: 04/29/18 20:18 04/29/18 20:18 - Constitutional Appears: No Acute Distress - Head Exam Head Exam: ATRAUMATIC, NORMAL INSPECTION, NORMOCEPHALIC - Eye Exam Eye Exam: EOMI, Normal appearance. absent: Scleral icterus - ENT Exam ENT Exam: Mucous Membranes Moist, Normal Oropharynx - Neck Exam Neck Exam: Full ROM, Normal Inspection - Respiratory Exam Respiratory Exam: Clear to Ausculation Bilateral, NORMAL BREATHING PATTERN. absent: Rales, Rhonchi - Cardiovascular Exam Cardiovascular Exam: REGULAR RHYTHM, +S1, +S2. absent: Murmur - GI/Abdominal Exam GI & Abdominal Exam: Soft. absent: Tenderness, Organomegaly - Extremities Exam Extremities Exam: Full ROM, Normal Inspection. absent: Calf Tenderness - Neurological Exam Neurological Exam: Alert, Awake, Oriented x3 - Skin Skin Exam: Normal Color, Warm Assessment and Plan - Assessment and Plan (Free Text) Assessment: 47 year old female with chest pain. serial troponin done: Negative for ACS; hx of normal stress echo 2018 Sxs are atypicas;, non-cardiac and resolved EKG there is no evidence of ischemia on current EKG. Hyperlipidemia is chronic and stable on statin CA on chemo Bipolar/depression/anxiety: stable on meds OA chornic and stable s/p knee replacement
--- NOTE | 2018-05-01 17:09 | CP.PCM.PN ---
Subjective - Date & Time of Evaluation Date of Evaluation: 05/01/18 Time of Evaluation: 11:45 - Subjective Subjective: clinically same Objective - Vital Signs/Intake and Output Vital Signs (last 24 hours): Temp Pulse Resp BP Pulse Ox 97.5 F L 80 20 113/76 98 05/01/18 16:00 05/01/18 16:00 05/01/18 16:00 05/01/18 16:00 05/01/18 16:00 Intake and Output: 05/01/18 05/01/18 06:59 18:59 Intake Total 120 600 Balance 120 600 - Medications Medications: Current Medications Albuterol (Ventolin Hfa 90 Mcg/Actuation (8 G)) 1 puff IH Q4 [facility] Last Admin: 05/01/18 11:23 Dose: Not Given Benzonatate (Tessalon Perles) 100 mg PO TID [facility] Last Admin: 05/01/18 13:16 Dose: 100 mg Clonazepam (Klonopin) 2 mg PO TID [facility] Last Admin: 05/01/18 13:16 Dose: 2 mg Diclofenac Sodium (Voltaren) 50 mg PO BID [facility] Last Admin: 05/01/18 09:44 Dose: 50 mg Duloxetine HCl (Cymbalta) 30 mg PO DAILY [facility] Last Admin: 05/01/18 09:44 Dose: 30 mg Enoxaparin Sodium (Lovenox) 40 mg SC DAILY [facility] Last Admin: 05/01/18 09:43 Dose: 40 mg Escitalopram Oxalate (Lexapro) 20 mg PO DAILY [facility] Last Admin: 05/01/18 09:44 Dose: 20 mg Hydromorphone HCl (Dilaudid) 1 mg IVP Q6H PRN PRN Reason: Pain, moderate (4-7) Last Admin: 05/01/18 13:14 Dose: 1 mg Lactobacillus Acidophilus (Lactobacillus) 1 cap PO HS [facility] Last Admin: 04/30/18 21:22 Dose: 1 cap Naproxen (Anaprox Ds) 1 mg PO BID PRN PRN Reason: Pain Ondansetron HCl (Zofran Odt) 4 mg PO TID PRN PRN Reason: Nausea/Vomiting Pantoprazole Sodium (Protonix Ec Tab) 40 mg PO DAILY [facility] Last Admin: 05/01/18 09:43 Dose: 40 mg Risperidone (Risperdal Tab) 2 mg PO BID [facility] Last Admin: 05/01/18 09:43 Dose: 2 mg Rosuvastatin Calcium (Crestor) 10 mg PO HS [facility] Last Admin: 04/30/18 21:22 Dose: 10 mg Tolterodine Tartrate (Detrol La) 4 mg PO DAILY [facility] Last Admin: 05/01/18 09:44 Dose: 4 mg Zolpidem Tartrate (Ambien) 5 mg PO [facility] Last Admin: 04/30/18 21:23 Dose: 5 mg - Labs Labs: 04/29/18 20:18 04/29/18 20:18
--- NOTE | 2018-05-01 21:25 | CARD ---
APPROVED REPORT Date of service: 04/29/2018 EKG Measurement Heart [id number] <Conclusion> Normal sinus rhythm Nonspecific ST abnormality Prolonged QT Abnormal ECG
[2018-05-01] MEDS: Lactobacillus Acidophilus 500 MU Cap PO SCH (22:30)
[2018-05-02] MEDS: Lactobacillus Acidophilus 500 MU Cap PO SCH (00:01)
[2018-05-02] MEDS: Albuterol HFA 90 mcg/actuation (8 g) IH SCH ×4 (01:13→11:21)
[2018-05-02 01:36] VITALS: TEMP 97.4
[2018-05-02] MEDS: HYDROmorphone 1 mg/ml ISec IVP PRN ×2 (02:51→10:44)
--- NOTE | 2018-05-02 07:22 | CP.PCM.PN ---
Subjective - Date & Time of Evaluation Date of Evaluation: 05/02/18 Time of Evaluation: 07:22 - Subjective Subjective: 47 year old female with a past medical history of bipolar, depression, metastatic colon cancer to liver and lungs presents to the hospital after reporting chest pain while shopping. Patient states it being sharp in nature mid-sternal with no radiation. Patient at the present denies any chest pain. Patient denies any alleviating or modifying factors. Patient denies any fevers, chills, nausea, vomiting, headaches, dizziness, syncopal episodes, or any other complaints. Past medical history: bipolar disorder, depression and metastatic colon cancer to liver and lungs Past surgical history: Knee surgery, portacatheter placement and removal Family history: Denies hematologic and oncologic problems Social history: Denies tobacco, alcohol, and illicit drug use. Allergies: NKDA Objective - Vital Signs/Intake and Output Vital Signs (last 24 hours): Temp Pulse Resp BP Pulse Ox 97.4 F L 71 20 136/91 H 95 05/01/18 23:05 05/02/18 02:50 05/02/18 02:50 05/02/18 02:50 05/02/18 02:50 - Medications Medications: Current Medications Albuterol (Ventolin Hfa 90 Mcg/Actuation (8 G)) 1 puff IH RQ4 [facility] Last Admin: 05/02/18 05:21 Dose: Not Given Benzonatate (Tessalon Perles) 100 mg PO TID [facility] Last Admin: 05/01/18 18:05 Dose: 100 mg Clonazepam (Klonopin) 2 mg PO TID [facility] Last Admin: 05/01/18 18:05 Dose: 2 mg Diclofenac Sodium (Voltaren) 50 mg PO BID [facility] Last Admin: 05/01/18 18:05 Dose: 50 mg Duloxetine HCl (Cymbalta) 30 mg PO DAILY [facility] Last Admin: 05/01/18 09:44 Dose: 30 mg Enoxaparin Sodium (Lovenox) 40 mg SC DAILY [facility] Last Admin: 05/01/18 09:43 Dose: 40 mg Escitalopram Oxalate (Lexapro) 20 mg PO DAILY [facility] Last Admin: 05/01/18 09:44 Dose: 20 mg Hydromorphone HCl (Dilaudid) 1 mg IVP Q6H PRN PRN Reason: Pain, moderate (4-7) Last Admin: 05/02/18 02:51 Dose: 1 mg Lactobacillus Acidophilus (Lactobacillus) 1 cap PO [facility] Last Admin: 05/02/18 00:01 Dose: 1 cap Naproxen (Anaprox Ds) 1 mg PO BID PRN PRN Reason: Pain Ondansetron HCl (Zofran Odt) 4 mg PO TID PRN PRN Reason: Nausea/Vomiting Pantoprazole Sodium (Protonix Ec Tab) 40 mg PO DAILY [facility] Last Admin: 05/01/18 09:43 Dose: 40 mg Risperidone (Risperdal Tab) 2 mg PO BID [facility] Last Admin: 05/01/18 18:05 Dose: 2 mg Rosuvastatin Calcium (Crestor) 10 mg PO [facility] Last Admin: 05/02/18 00:02 Dose: 10 mg Tolterodine Tartrate (Detrol La) 4 mg PO DAILY [facility] Last Admin: 05/01/18 09:44 Dose: 4 mg Zolpidem Tartrate (Ambien) 5 mg PO [facility] Last Admin: 05/02/18 00:01 Dose: 5 mg - Labs Labs: 04/29/18 20:18 04/29/18 20:18 - Head Exam Head Exam: ATRAUMATIC, NORMAL INSPECTION - Eye Exam Eye Exam: EOMI, Normal appearance, PERRL Pupil Exam: NORMAL ACCOMODATION - ENT Exam ENT Exam: Mucous Membranes Moist - Respiratory Exam Respiratory Exam: Clear to Ausculation Bilateral, NORMAL BREATHING PATTERN. absent: Respiratory Distress - Cardiovascular Exam Cardiovascular Exam: REGULAR RHYTHM, +S1, +S2 - GI/Abdominal Exam GI & Abdominal Exam: Soft, Normal Bowel Sounds. absent: Hyperactive Bowel Sounds - Neurological Exam Neurological Exam: Awake, CN II-XII Intact, Oriented x3 - Psychiatric Exam Psychiatric exam: Normal Affect, Normal Mood - Skin Skin Exam: Dry, Intact Assessment and Plan - Assessment and Plan (Free Text) Assessment: Chest pain r/o ACS Cardiology consulted. Help appreciated. EKG: NSR. Negative ST-T changes Troponins (-)x3 Diuladid 1mg IVP q6 PRN Crestor 10mg PO [facility] Cardiology Dr. Camp consulted --> Help appreciated. Urinary incontinence Tolterodine 4mg PO Daily Metastatic colon cancer Stage IV; mets to liver and lung Lung biopsy (on 08/19/17): Metastatic adenocarcinoma. Consistent w/ primary colon source Hx of Anemia of Chronic Disease Hgb stable Monitor Bipolar disorder Continue home medication: Risperdal 2mg PO BID Depression Continue home medication: Cymbalta 30mg PO Daily Continue home medication: Lexapro 20mg PO Daily Anxiety Continue home medication: Klonopin 2mg PO TID Insomnia Continue home medication: Ambien 5 mg PO HS Cough/SOB Tessalon Perles 100mg PO TID Albuterol 1puff IH RQ4 [facility] Protonix 40mg PO Daily Lovenox 40mg SC Daily Lactobacillus 1cap PO HS [facility] Dispo: Patient cleared for discharge. Discharge Instructions: 1.F/u with pmd within 5 days of discharge. 2.Return to hospital for any new or worsening symptoms. Medications: 1.Crestor 10mg PO DAILY, #30, No refills All management per Dr. Dionisio Montes, PGY-2
[2018-05-02 08:15] VITALS: BP 130/86; PULSE 73; O2SAT 100
[2018-05-02] MEDS: Enoxaparin 40 mg Syringe SC SCH (09:37)
[2018-05-02] MEDS: Diclofenac Sodium Delayed Release 50 mg EC Tab PO SCH (09:38)
[2018-05-02] MEDS: Pantoprazole 40 mg EC Tab PO SCH (09:38)
[2018-05-02] MEDS: Tolterodine 4 mg ER Cap PO SCH (09:39)
== END 2018-05-02 16:06 | disposition home or self-care (01) ==
LOC: C.ER 18:44 → C.9E 23:46 → C.6T 04-30 01:21
PROVIDERS: ADMIT Internal Medicine Nephrology; ATTEND Internal Medicine Nephrology
DX: R07.9 Chest pain, unspecified (principal); E78.5 Hyperlipidemia, unspecified; J45.909 Unspecified asthma, uncomplicated; D63.8 Anemia in other chronic diseases classified elsewhere; M06.9 Rheumatoid arthritis, unspecified; C18.9 Malignant neoplasm of colon, unspecified; F41.9 Anxiety disorder, unspecified; F31.9 Bipolar disorder, unspecified; F20.9 Schizophrenia, unspecified; C78.7 Secondary malignant neoplasm of liver and intrahepatic bile duct; C78.00 Secondary malignant neoplasm of unspecified lung; I10 Essential (primary) hypertension; R32 Unspecified urinary incontinence; Z96.659 Presence of unspecified artificial knee joint; Z98.51 Tubal ligation status; G47.00 Insomnia, unspecified
CPT/HCPCS: 36415; 71046; 71275; 80053; 83880; 84484; 85025; 93005; 94640; 96372; 99284; G0378; J1170; J1650; Q9967

== ENCOUNTER 2018-05-13 18:59 | Observation (INO) | payer MEDICARE ==
[2018-05-13 19:00] VITALS: BMI 37.3
--- NOTE | 2018-05-13 20:00 | C.PDOC ---
History Of Present Illness 47 year old female presents to the ED c/o chest pain and left arm pain. Patient has history of colon cancer currently on chemotherapy. Patient's last chemotherapy was on 05/05/18. Patient denies fever, chills, nausea, vomit, dizziness, SOB, palpitations, rash, weakness, numbness. Time Seen by Provider: 05/13/18 19:59 Chief Complaint (Nursing): Chest Pain History Per: Patient History/Exam Limitations: no limitations Onset/Duration Of Symptoms: Hrs Current Symptoms Are (Timing): Still Present Context: Other Severity: Moderate Pain Scale Rating Of: 4 Quality: Dull, Tightness Modifying Factors: None Exacerbating Factors: None Alleviating Factors: None Recent travel outside of the [place]: No Additional History Per: Patient Past Medical History Reviewed: Historical Data, Nursing Documentation, Vital Signs Vital Signs: Last Vital Signs Temp 97.3 F L 05/13/18 19:12 Pulse 91 H 05/13/18 19:12 Resp 16 05/13/18 19:12 BP 133/85 05/13/18 19:12 Pulse Ox 99 05/13/18 19:12 - Medical History PMH: Anemia, Anxiety, Arthritis, Asthma, Back Problems, Bipolar Disorder, Depression, HTN, Malignancy (Colon), Rheumatoid Arthritis, Schizophrenia Denies: Chronic Kidney Disease Surgical History: No Surg Hx - [facility] Procedures CLOSED ENDOSCOPIC BIOPSY OF LARGE INTESTINE (05/23/14) COLONOSCOPY (08/12/14) DX ULTRASOUND-ABDOMEN (05/23/14) EXCISION OF STOMACH, ENDO, DIAGN (01/13/18) INSERTION OF TOTALLY IMPLANTABLE VASC ACCESS DEVIC (05/23/14) LAPAROSCOP LYSIS-PERITONEAL ADHES (05/23/14) LAPAROSCOPIC SIGMOIDECTOMY (05/23/14) OTHER ENDOSCOPY OF SM INTEST (05/23/14) PACKED CELL TRANSFUSION (05/23/14) PERCUTAN NEEDLE BX OF LIVER (05/23/14) REMOVAL OF VAD FROM TRUNK SUBCU/FASCIA, PERC APPROACH (03/16/15) Family History: States: Unknown Family Hx - Social History Hx Tobacco Use: No Hx Alcohol Use: No Hx Substance Use: No - Immunization History Hx Tetanus Toxoid Vaccination: No Hx Influenza Vaccination: Yes Hx Pneumococcal Vaccination: No Review Of Systems Constitutional: Negative for: Fever, Chills Cardiovascular: Positive for: Chest Pain. Negative for: Palpitations Respiratory: Negative for: Cough, Shortness of Breath Gastrointestinal: Negative for: Nausea, Vomiting, Abdominal Pain Musculoskeletal: Positive for: Arm Pain Skin: Negative for: Rash Neurological: Negative for: Weakness, Numbness, Headache Physical Exam - Physical Exam Appears: Non-toxic, No Acute Distress Skin: Warm, Dry Head: Normacephalic Eye(s): bilateral: Normal Inspection Oral Mucosa: Moist Neck: Supple Chest: Symmetrical, Tenderness (right sided chest port) Cardiovascular: Rhythm Regular Respiratory: No Rales, No Rhonchi, No Wheezing Gastrointestinal/Abdominal: Soft, No Tenderness, No Guarding, No Rebound Back: No CVA Tenderness Extremity: No Tenderness Extremity: Bilateral: Atraumatic, Normal Color And Temperature, Normal ROM Pulses: Left Dorsalis Pedis: Normal, Right Dorsalis Pedis: Normal Neurological/Psych: Oriented x3, Normal Speech, Normal Cognition Gait: Steady ED Course And Treatment - Laboratory Results Result Diagrams: 05/13/18 20:20 05/13/18 20:20 ECG: Interpreted By Me, Viewed By Me ECG Rhythm: Sinus Rhythm (89), Nonspecific Changes O2 Sat by Pulse Oximetry: 99 (ON RA) Pulse Ox Interpretation: Normal - Radiology CXR: Interpreted by Me, Viewed By Me CXR Interpretation: Yes: Other (port r chest , unchnaged). No: Infiltrates, Fracture, Pnemothorax Progress Note: Plan: - EKG. - Labs. - CXR. - Aspirin 325 mg PO. - UA Disposition Discussed With : Rosaura Harris Comment: accepted the pt on his service and took overthe care at 9:40 PM Doctor Will See Patient In The: Hospital Counseled Patient/Family Regarding: Studies Performed, Diagnosis - Disposition Disposition: HOSPITALIZED Disposition Time: 21:40 Condition: FAIR Forms: [facility] (Lao) - Clinical Impression Clinical Impression: Chest pain - Scribe Statement The provider has reviewed the documentation as recorded by the Scribe Jose R Russell All medical record entries made by the Scribe were at my direction and personally dictated by me. I have reviewed the chart and agree that the record accurately reflects my personal performance of the history, physical exam, medical decision making, and the department course for this patient. I have also personally directed, reviewed, and agree with the discharge instructions and disposition. Decision To Admit - Pt Status Changed To: Hospital Disposition Of: Observation - . Bed Request Type: Telemetry Admitting Physician: Rosaura Harris Patient Diagnosis: Chest pain
[2018-05-13] MEDS ORDERED: Aspirin 325 mg EC Tablets PO STA (20:05)
[2018-05-13 20:24] LABS: BASO % 0.3 % (0.0-2.0); EOS % 0.8 % (0.0-4.0); HEMOGLOBIN 10.4 g/dL (11.0-16.0); LYMPH # 1.1 K/uL (1.0-4.3); MEAN CELL VOLUME 82.4 fL (81.0-99.0); MEAN CORPUSCULAR HGB CONC 32.7 g/dL (33.0-37.0); MEAN PLATELET VOLUME 7.6 fL (7.2-11.7); MONO # 0.3 K/uL (0.0-0.8); MONO % 8.8 % (0.0-10.0); NEUT # 1.7 K/uL (1.8-7.0); NEUT % 55.1 % (50.0-75.0); NRBC % 0.3 % (0.0-2.0); RBC 3.84 Mil/uL (3.80-5.20); RED CELL DISTRIBUTION WIDTH 19.4 % (11.5-14.5); WHITE BLOOD COUNT 3.1 K/uL (4.8-10.8)
[2018-05-13 20:31] LABS: INR 1.2; PROTHROMBIN TIME 12.6 SECONDS (9.7-12.2)
[2018-05-13 20:40] LABS: ALB/GLOB RATIO 1.6 (1.0-2.1); ALBUMIN 3.7 g/dL (3.5-5.0); ALT/SGPT 64 U/L (9-52); AST/SGOT 58 U/L (14-36); BLOOD UREA NITROGEN 11 mg/dL (7-17); GFR NON-AFRICAN AMERICAN 59
[2018-05-13 20:48] LABS: B-TYPE NATRIURETIC PEPTIDE 453 pg/mL (0-450)
[2018-05-13 21:26] LABS: SQUAMOUS EPITHIAL 1 /hpf (0-5); URINE BACTERIA RARE (<OCC); URINE BILIRUBIN NEGATIVE (NEGATIVE); URINE BLOOD NEGATIVE (NEGATIVE); URINE CLARITY Clear (Clear); URINE COLOR Straw (YELLOW); URINE GLUCOSE (UA) NORMAL (Normal); URINE LEUKOCYTE ESTERASE NEG Leu/uL (Negative); URINE PROTEIN NEGATIVE (NEGATIVE); URINE UROBILINOGEN NORMAL mg/dL (0.2-1.0)
[2018-05-13] MEDS ORDERED: Morphine 4 MG/ML VIAL IV ONE (23:46)
[2018-05-14] MEDS: oxyCODONE 5 mg Immediate Release Tab PO PRN ×3 (09:26→23:49)
--- NOTE | 2018-05-14 09:43 | RAD ---
Date of service: 05/13/2018 PROCEDURE: CHEST RADIOGRAPH, 1 VIEW HISTORY: chest pain COMPARISON: 04/29/2018 FINDINGS: LUNGS: Clear lungs no consolidation. Current inspiration less now than before. PLEURA: No pneumothorax or pleural fluid seen. CARDIOVASCULAR: No aortic atherosclerotic calcification present. Heart size probably top-normal. No significant appearing pulmonary venous congestion. Right Port-A-Cath present tip in superior vena cava as before. OSSEOUS STRUCTURES: Thoracic spondylosis. Arthrosis noted each shoulder excluded from field of view. VISUALIZED UPPER ABDOMEN: Normal. OTHER FINDINGS: None. IMPRESSION: No acute interval cardiopulmonary pathology noted. Other findings as above.
[2018-05-14] MEDS: Enoxaparin 40 mg Syringe SC SCH (10:56)
--- NOTE | 2018-05-14 18:54 | CARD ---
APPROVED REPORT Date of service: 05/13/2018 EKG Measurement Heart [id number] <Conclusion> Normal sinus rhythm Prolonged QT Abnormal ECG
--- NOTE | 2018-05-14 19:11 | CP.PCM.HP ---
Past Patient History - Infectious Disease Hx of Infectious Diseases: None - Past Medical History & Family History Past Medical History?: Yes - Past Social History Smoking Status: Never Smoked - CARDIAC Hx Hypertension: Yes - PULMONARY Hx Asthma: Yes - NEUROLOGICAL Hx Neurological Disorder: No - HEENT Hx HEENT Problems: No - RENAL Hx Chronic Kidney Disease: No - ENDOCRINE/METABOLIC Hx Endocrine Disorders: No - HEMATOLOGICAL/ONCOLOGICAL Hx Anemia: Yes - INTEGUMENTARY Hx Dermatological Problems: No - MUSCULOSKELETAL/RHEUMATOLOGICAL Hx Arthritis: Yes Hx Rheumatoid Arthritis: Yes - GASTROINTESTINAL Hx Gastrointestinal Disorders: Yes Hx Bowel Surgery: Yes Other/Comment: COLON CANCER STAGE 4 WITH CHEMOTHERAPY. R side port a cath - GENITOURINARY/GYNECOLOGICAL Hx Genitourinary Disorders: No - PSYCHIATRIC Hx Anxiety: Yes Hx Bipolar Disorder: Yes Hx Depression: Yes Hx Schizophrenia: Yes Hx Substance Use: No - SURGICAL HISTORY Hx Surgeries: Yes (SEE COMMENT) Hx Orthopedic Surgery: Yes (left knee TKR 03/2017) Hx Tubal Ligation: Yes (2005) Hx Vascular Access Device: Yes (RIGHT SUBCLAVIAN 2014) Other/Comment: colon cancer surgery april 2014 to remove tumor, rt side subclavian Port - ANESTHESIA Hx Anesthesia: Yes Hx Anesthesia Reactions: No Hx Malignant Hyperthermia: No Meds Allergies/Adverse Reactions: Allergies Allergy/AdvReac Type Severity Reaction Status Date / Time No Known Allergies Allergy Verified 05/13/18 19:06 Physical Exam - Constitutional Appears: Well - Head Exam Head Exam: ATRAUMATIC, NORMAL INSPECTION, NORMOCEPHALIC - Eye Exam Eye Exam: EOMI, Normal appearance, PERRL Pupil Exam: NORMAL ACCOMODATION, PERRL - ENT Exam ENT Exam: Mucous Membranes Moist, Normal Exam - Neck Exam Neck exam: Positive for: Normal Inspection - Respiratory Exam Respiratory Exam: Decreased Breath Sounds - Cardiovascular Exam Cardiovascular Exam: REGULAR RHYTHM, +S1, +S2 - GI/Abdominal Exam GI & Abdominal Exam: Diminished Bowel Sounds, Soft - Rectal Exam Rectal Exam: Deferred Results - Vital Signs Recent Vital Signs: Last Vital Signs Temp 97.7 F 05/14/18 15:00 Pulse 96 H 05/14/18 16:25 Resp 20 05/14/18 15:00 BP 136/91 H 05/14/18 15:00 Pulse Ox 96 05/14/18 16:39 - Labs Result Diagrams: 05/13/18 20:20 05/13/18 20:20 Labs: Laboratory Results - last 24 hr 05/13/18 05/13/18 05/13/18 20:20 20:20 20:20 WBC 3.1 L RBC 3.84 Hgb 10.4 L Hct 31.6 L MCV 82.4 MCH 27.0 MCHC 32.7 L RDW 19.4 H Plt Count 160 MPV 7.6 Neut % (Auto) 55.1 Lymph % (Auto) 35.0 [place] % (Auto) 8.8 Eos % (Auto) 0.8 Baso % (Auto) 0.3 Neut # (Auto) 1.7 L Lymph # (Auto) 1.1 [place] # (Auto) 0.3 Eos # (Auto) 0.0 Baso # (Auto) 0.0 PT 12.6 H INR 1.2 APTT 29 Sodium 139 Potassium 4.2 Chloride 103 Carbon Dioxide 30 Anion Gap 10 BUN 11 Creatinine 1.0 Est GFR ( Amer) > 60 Est GFR (Non-Af Amer) 59 Random Glucose 94 Calcium 9.0 Total Bilirubin 0.3 AST 58 H D ALT 64 H D Alkaline Phosphatase 71 Troponin I < 0.0120 NT-Pro-B Natriuret Pep 453 H Total Protein 6.1 L Albumin 3.7 Globulin 2.4 Albumin/Globulin Ratio 1.6 Urine Color Urine Clarity Urine pH Ur Specific [place] Urine Protein Urine Glucose (UA) Urine Ketones Urine Blood Urine Nitrate Urine Bilirubin Urine Urobilinogen Ur Leukocyte Esterase Urine WBC (Auto) Ur Squamous Epith Cells Urine Bacteria 05/13/18 05/14/18 21:05 11:24 WBC RBC Hgb Hct MCV MCH MCHC RDW Plt Count MPV Neut % (Auto) Lymph % (Auto) [place] % (Auto) Eos % (Auto) Baso % (Auto) Neut # (Auto) Lymph # (Auto) [place] # (Auto) Eos # (Auto) Baso # (Auto) PT INR APTT Sodium Potassium Chloride Carbon Dioxide Anion Gap BUN Creatinine Est GFR ( Amer) Est GFR (Non-Af Amer) Random Glucose Calcium Total Bilirubin AST ALT Alkaline Phosphatase Troponin I < 0.0120 NT-Pro-B Natriuret Pep Total Protein Albumin Globulin Albumin/Globulin Ratio Urine Color Straw Urine Clarity Clear Urine pH 6.0 Ur Specific [place] 1.006 Urine Protein Negative Urine Glucose (UA) Normal Urine Ketones Negative Urine Blood Negative Urine Nitrate Negative Urine Bilirubin Negative Urine Urobilinogen Normal Ur Leukocyte Esterase Neg Urine WBC (Auto) 2 Ur Squamous Epith Cells 1 Urine Bacteria Rare
[2018-05-15] MEDS: Albuterol HFA 90 mcg/actuation (8 g) INH SCH ×2 (00:30→19:34)
[2018-05-15] MEDS: oxyCODONE 5 mg Immediate Release Tab PO PRN ×3 (04:55→21:08)
--- NOTE | 2018-05-15 07:44 | CP.PCM.PN ---
Subjective - Date & Time of Evaluation Date of Evaluation: 05/15/18 Time of Evaluation: 10:15 - Subjective Subjective: Ms. Hsieh is a 47 year old female with a PMHx of Bipolar Disorder, Depression, Metastatic Colon CA to the Liver and Lungs who presented to the hospital with complaints of sharp left sided chest pain with radation to the left shoulder and down the arm to the pinky. Patient was admitted for evaluation and treatment of chest pain r/o acs. History obtained from patient and chart. PMHx: bipolar disorder, depression, anziety, and metastatic colon cancer to liver and lungs, HTN, Rh. Arthritis, Schizophrenia PSHx: Knee surgery, portacatheter placement and removal, Tubal ligation, mu ltiple bowel surgeries. FamHx Denies hematologic and oncologic problems SocialHx: Denies tobacco, alcohol, and illicit drug use. Allergies: NKDA Hos: 04/30/18: Chest Pain R/O ACS Patient seen and examined at bedside. No overnight events reported. Today, patient states the pain is constant and doesn't go away. It is exacerbated with palpation of the region. She denies any headache, palpitations, SOB, abdominal pain, nausea, vomiting, changes in bowel habits, or urinary symptoms. Objective - Vital Signs/Intake and Output Vital Signs (last 24 hours): Temp Pulse Resp BP Pulse Ox 97.8 F 78 20 141/92 H 97 05/14/18 23:00 05/14/18 23:00 05/14/18 23:00 05/14/18 23:00 05/14/18 23:00 Intake and Output: 05/15/18 05/15/18 06:59 18:59 Intake Total 1000 Balance 1000 - Medications Medications: Current Medications Albuterol (Ventolin Hfa 90 Mcg/Actuation (8 G)) 1 puff INH RQ4 [facility] Last Admin: 05/15/18 00:30 Dose: Not Given Clonazepam (Klonopin) 1 mg PO TID [facility] Last Admin: 05/14/18 17:16 Dose: 1 mg Duloxetine HCl (Cymbalta) 30 mg PO DAILY [facility] Last Admin: 05/14/18 10:46 Dose: 30 mg Enoxaparin Sodium (Lovenox) 40 mg SC DAILY [facility] Last Admin: 05/14/18 10:56 Dose: 40 mg Escitalopram Oxalate (Lexapro) 20 mg PO DAILY [facility] Last Admin: 05/14/18 10:46 Dose: 20 mg Oxycodone HCl (Oxycodone Immediate Release Tab) 15 mg PO Q4 PRN PRN Reason: Pain, moderate (4-7) Last Admin: 05/15/18 04:55 Dose: 15 mg Risperidone (Risperdal Tab) 2 mg PO BID [facility] Last Admin: 05/14/18 17:16 Dose: 2 mg Rosuvastatin Calcium (Crestor) 10 mg PO [facility] Last Admin: 05/14/18 21:08 Dose: 10 mg Tolterodine Tartrate (Detrol) 1 mg PO BID [facility] Last Admin: 05/14/18 17:16 Dose: 1 mg Zolpidem Tartrate (Ambien) 5 mg PO [facility] Last Admin: 05/14/18 21:09 Dose: 5 mg - Labs Labs: 05/13/18 20:20 05/13/18 20:20 PT 12.6 SECONDS (9.7-12.2) H 05/13/18 20:20 INR 1.2 05/13/18 20:20 APTT 29 SECONDS (21-34) 05/13/18 20:20 - Constitutional Appears: Well, Non-toxic, No Acute Distress - Head Exam Head Exam: ATRAUMATIC, NORMAL INSPECTION, NORMOCEPHALIC - Eye Exam Eye Exam: EOMI, Normal appearance. absent: Scleral icterus - ENT Exam ENT Exam: Mucous Membranes Moist - Respiratory Exam Respiratory Exam: Clear to Ausculation Bilateral, NORMAL BREATHING PATTERN. absent: Accessory Muscle Use - Cardiovascular Exam Cardiovascular Exam: RRR, +S1, +S2. absent: JVD, Murmur - GI/Abdominal Exam GI & Abdominal Exam: Distended, Soft, Normal Bowel Sounds. absent: Firm, Tenderness, Rebound - Extremities Exam Extremities Exam: Normal Capillary Refill. absent: Pedal Edema - Neurological Exam Neurological Exam: Alert, Awake, Oriented x3 Additional comments: Positive left sided spurlings test with C8 distribution radiculopathy - Psychiatric Exam Psychiatric exam: Normal Mood. absent: Normal Affect (Restricted) - Skin Skin Exam: Dry, Intact, Normal Color, Warm Additional comments: Scar on Left Knee, Assessment and Plan - Assessment and Plan (Free Text) Assessment: 47 year old female with a PMHx of bipolar disorder, depression, anziety, and metastatic colon cancer to liver and lungs, HTN, Rh. Arthritis, and Schizophrenia admitted for evaluation and treatment of chest pain r/o ACS. Plan: Chest Pain, R/O ACS. Atypical Chest pain, likely MSK in nature. Radiation down the arm is likely from cervical radiculopathy. EKG (Admission): NSR w/o acute ST or T wave changes. ECHO( ): Showed normal systolic and diastolic function. Troponins NEGATIVE x3 DC Tele Mgmt: Toradol 30mg IVP x 1 GABAPENTIN 300mg PO x 1. If this resolves pain, patient should be discharged on Gapapentin/Ibuprofen PRN. HTN Patient's pressures have been labile Will need to do medication reconciliation. No Antihypertensives meds on the chart from home. Hyperlipidemia Mgmt: Home Crestor 10mg PO HS BiPolar DO, Depression, Schizophrenia, Anxiety Will Consider Psych consult for a medicatio reconcilliation. Mgmt: Cont. Home Meds Klonopin 1mg PO TID Duloxetine 30mg PO Daily Lexapro 20mg PO Daily Riperidone 2mg PO BID Urge Incontinene Mgmt: Vesicare 5mg PO not in Formulary Tolterodine 1mg PO BID Insomnia Mgmt: Ambien 5mg PO HS Colon CA (Stage IV) Outpatient Chemo. Proph Lovenox daily Dispo: Patient scheduled to be DC'd tomorrow morning. Patient discussed with Attending (Dr. Lobo howard) Josemanuel Moser, PGY-2
[2018-05-15] MEDS: Enoxaparin 40 mg Syringe SC SCH (10:31)
[2018-05-15 11:52] LABS: BASO % 0.2 % (0.0-2.0); EOS % 0.4 % (0.0-4.0); HEMOGLOBIN 10.4 g/dL (11.0-16.0); LYMPH # 0.9 K/uL (1.0-4.3); LYMPH % 27.9 % (20.0-40.0); MEAN CELL VOLUME 83.7 fL (81.0-99.0); MEAN CORPUSCULAR HEMOGLOBIN 26.9 pg (27.0-31.0); MEAN CORPUSCULAR HGB CONC 32.2 g/dL (33.0-37.0); MEAN PLATELET VOLUME 7.9 fL (7.2-11.7); MONO # 0.2 K/uL (0.0-0.8); MONO % 6.8 % (0.0-10.0); NEUT # 2.1 K/uL (1.8-7.0); NEUT % 64.7 % (50.0-75.0); NRBC % 0.1 % (0.0-2.0); RBC 3.87 Mil/uL (3.80-5.20); RED CELL DISTRIBUTION WIDTH 20.1 % (11.5-14.5); WHITE BLOOD COUNT 3.2 K/uL (4.8-10.8)
[2018-05-15 12:16] LABS: ALB/GLOB RATIO 1.5 (1.0-2.1); ALBUMIN 3.5 g/dL (3.5-5.0); ALT/SGPT 45 U/L (9-52); AST/SGOT 45 U/L (14-36); BLOOD UREA NITROGEN 14 mg/dL (7-17); CALCIUM 8.5 mg/dl (8.6-10.4); GFR NON-AFRICAN AMERICAN > 60
[2018-05-15 13:15] LABS: CK-MB 0.59 ng/mL (0.0-3.38)
[2018-05-15 15:56] VITALS: RESP 20; O2SAT 96
--- NOTE | 2018-05-15 19:00 | CP.PCM.PN ---
Subjective - Date & Time of Evaluation Date of Evaluation: 05/15/18 Time of Evaluation: 08:00 - Subjective Subjective: clinically same Objective - Vital Signs/Intake and Output Vital Signs (last 24 hours): Temp Pulse Resp BP Pulse Ox 97.6 F 73 20 142/96 H 96 05/15/18 15:00 05/15/18 15:00 05/15/18 15:00 05/15/18 15:00 05/15/18 16:00 Intake and Output: 05/15/18 05/15/18 06:59 18:59 Intake Total 1000 Balance 1000 - Medications Medications: Current Medications Albuterol (Ventolin Hfa 90 Mcg/Actuation (8 G)) 1 puff INH RQ4 [facility] Last Admin: 05/15/18 00:30 Dose: Not Given Clonazepam (Klonopin) 1 mg PO TID [facility] Last Admin: 05/15/18 17:16 Dose: 1 mg Docusate Sodium (Colace) 100 mg PO BID [facility] Last Admin: 05/15/18 17:16 Dose: 100 mg Duloxetine HCl (Cymbalta) 30 mg PO DAILY [facility] Last Admin: 05/15/18 10:31 Dose: 30 mg Enoxaparin Sodium (Lovenox) 40 mg SC DAILY [facility] Last Admin: 05/15/18 10:31 Dose: 40 mg Escitalopram Oxalate (Lexapro) 20 mg PO DAILY [facility] Last Admin: 05/15/18 10:30 Dose: 20 mg Oxycodone HCl (Oxycodone Immediate Release Tab) 15 mg PO Q4 PRN PRN Reason: Pain, moderate (4-7) Last Admin: 05/15/18 16:07 Dose: 15 mg Risperidone (Risperdal Tab) 2 mg PO BID [facility] Last Admin: 05/15/18 17:16 Dose: 2 mg Rosuvastatin Calcium (Crestor) 10 mg PO HS [facility] Last Admin: 05/14/18 21:08 Dose: 10 mg Tolterodine Tartrate (Detrol) 1 mg PO BID [facility] Last Admin: 05/15/18 17:17 Dose: 1 mg Zolpidem Tartrate (Ambien) 5 mg PO HS [facility] Last Admin: 05/14/18 21:09 Dose: 5 mg - Labs Labs: 05/15/18 11:36 05/15/18 11:36 PT 12.6 SECONDS (9.7-12.2) H 05/13/18 20:20 INR 1.2 05/13/18 20:20 APTT 29 SECONDS (21-34) 05/13/18 20:20 - Constitutional Appears: Well - Head Exam Head Exam: ATRAUMATIC, NORMAL INSPECTION, NORMOCEPHALIC - Eye Exam Eye Exam: EOMI, Normal appearance, PERRL Pupil Exam: NORMAL ACCOMODATION, PERRL - ENT Exam ENT Exam: Mucous Membranes Moist, Normal Exam - Neck Exam Neck Exam: Full ROM, Normal Inspection. absent: Lymphadenopathy - Respiratory Exam Respiratory Exam: Decreased Breath Sounds - Cardiovascular Exam Cardiovascular Exam: REGULAR RHYTHM, +S1, +S2 - GI/Abdominal Exam GI & Abdominal Exam: Soft, Diminished Bowel Sounds - Rectal Exam Rectal Exam: Deferred
[2018-05-16] MEDS: Albuterol HFA 90 mcg/actuation (8 g) INH SCH ×4 (00:13→11:00)
[2018-05-16] MEDS: oxyCODONE 5 mg Immediate Release Tab PO PRN ×2 (05:57→10:54)
[2018-05-16 08:36] LABS: BASO % 0.3 % (0.0-2.0); EOS % 0.5 % (0.0-4.0); HEMOGLOBIN 10.8 g/dL (11.0-16.0); LYMPH % 28.4 % (20.0-40.0); MEAN CELL VOLUME 83.4 fL (81.0-99.0); MEAN CORPUSCULAR HEMOGLOBIN 27.3 pg (27.0-31.0); MEAN CORPUSCULAR HGB CONC 32.8 g/dL (33.0-37.0); MEAN PLATELET VOLUME 8.1 fL (7.2-11.7); MONO # 0.3 K/uL (0.0-0.8); MONO % 8.7 % (0.0-10.0); NEUT # 2.2 K/uL (1.8-7.0); NEUT % 62.1 % (50.0-75.0); NRBC % 0.2 % (0.0-2.0); RBC 3.95 Mil/uL (3.80-5.20); RED CELL DISTRIBUTION WIDTH 20.3 % (11.5-14.5); WHITE BLOOD COUNT 3.5 K/uL (4.8-10.8)
[2018-05-16 08:49] LABS: ALB/GLOB RATIO 1.4 (1.0-2.1); ALBUMIN 3.5 g/dL (3.5-5.0); ALT/SGPT 37 U/L (9-52); AST/SGOT 39 U/L (14-36); BLOOD UREA NITROGEN 14 mg/dL (7-17); CALCIUM 8.7 mg/dl (8.6-10.4); GFR NON-AFRICAN AMERICAN 59
[2018-05-16 09:36] VITALS: BP 144/83; PULSE 88; TEMP 97.4
[2018-05-16] MEDS: Enoxaparin 40 mg Syringe SC SCH (09:43)
--- NOTE | 2018-05-16 10:23 | CP.PCM.PN ---
Subjective - Date & Time of Evaluation Date of Evaluation: 05/16/18 Time of Evaluation: 11:28 - Subjective Subjective: Patient seen and examined at bedside. No overnight events reported. Patient denies any fever, chill, Chest pain, SoB, abdominal pain, nausea, vomiting, changes in bowel habits, urinary symptoms. Objective - Vital Signs/Intake and Output Vital Signs (last 24 hours): Temp Pulse Resp BP Pulse Ox 97.4 F L 88 20 144/83 96 05/16/18 07:00 05/16/18 07:00 05/16/18 07:00 05/16/18 07:00 05/16/18 07:00 Intake and Output: 05/16/18 05/16/18 06:59 18:59 Intake Total 500 Balance 500 - Medications Medications: Current Medications Albuterol (Ventolin Hfa 90 Mcg/Actuation (8 G)) 1 puff INH RQ4 [facility] Last Admin: 05/16/18 03:32 Dose: Not Given Clonazepam (Klonopin) 1 mg PO TID [facility] Last Admin: 05/16/18 09:44 Dose: 1 mg Docusate Sodium (Colace) 100 mg PO BID [facility] Last Admin: 05/16/18 09:43 Dose: 100 mg Duloxetine HCl (Cymbalta) 30 mg PO DAILY [facility] Last Admin: 05/16/18 09:43 Dose: 30 mg Enoxaparin Sodium (Lovenox) 40 mg SC DAILY [facility] Last Admin: 05/16/18 09:43 Dose: 40 mg Escitalopram Oxalate (Lexapro) 20 mg PO DAILY [facility] Last Admin: 05/16/18 09:44 Dose: 20 mg Oxycodone HCl (Oxycodone Immediate Release Tab) 15 mg PO Q4 PRN PRN Reason: Pain, moderate (4-7) Last Admin: 05/16/18 05:57 Dose: 15 mg Risperidone (Risperdal Tab) 2 mg PO BID [facility] Last Admin: 05/16/18 09:43 Dose: 2 mg Rosuvastatin Calcium (Crestor) 10 mg PO [facility] Last Admin: 05/15/18 21:08 Dose: 10 mg Tolterodine Tartrate (Detrol) 1 mg PO BID [facility] Last Admin: 05/16/18 09:44 Dose: 1 mg Zolpidem Tartrate (Ambien) 5 mg PO [facility] Last Admin: 05/15/18 21:08 Dose: 5 mg - Labs Labs: 05/16/18 08:05 05/16/18 08:05 PT 12.6 SECONDS (9.7-12.2) H 05/13/18 20:20 INR 1.2 05/13/18 20:20 APTT 29 SECONDS (21-34) 05/13/18 20:20 - Additional Findings Additional findings: - Constitutional Appears: Well, Non-toxic, No Acute Distress - Head Exam Head Exam: ATRAUMATIC, NORMAL INSPECTION, NORMOCEPHALIC - Eye Exam Eye Exam: EOMI, Normal appearance. absent: Scleral icterus - ENT Exam ENT Exam: Mucous Membranes Moist - Respiratory Exam Respiratory Exam: Clear to Ausculation Bilateral, NORMAL BREATHING PATTERN. absent: Accessory Muscle Use - Cardiovascular Exam Cardiovascular Exam: RRR, +S1, +S2. absent: JVD, Murmur - GI/Abdominal Exam GI & Abdominal Exam: Distended, Soft, Normal Bowel Sounds. absent: Firm, Tenderness, Rebound - Extremities Exam Extremities Exam: Normal Capillary Refill. absent: Pedal Edema - Neurological Exam Neurological Exam: Alert, Awake, Oriented x3 Additional comments: Positive left sided spurlings test with C8 distribution radiculopathy - Psychiatric Exam Psychiatric exam: Normal Mood. absent: Normal Affect (Restricted) - Skin Skin Exam: Dry, Intact, Normal Color, Warm Additional comments: Scar on Left Knee, Assessment and Plan - Assessment and Plan (Free Text) Assessment: 47 year old female with a PMHx of bipolar disorder, depression, anziety, and metastatic colon cancer to liver and lungs, HTN, Rh. Arthritis, and Schizoph maria r admitted for evaluation and treatment of chest pain r/o ACS. Plan: Chest Pain, R/O ACS. Atypical Chest pain, likely MSK in nature. Radiation down the arm is likely from cervical radiculopathy. EKG (Admission): NSR w/o acute ST or T wave changes. ECHO( ): Showed normal systolic and diastolic function. Troponins NEGATIVE x3 DC Tele Mgmt: Toradol 30mg IVP x 1 GABAPENTIN 300mg PO x 1. If this resolves pain, patient should be discharged on Gapapentin/Ibuprofen PRN. HTN Patient's pressures have been labile Will need to do medication reconciliation. No Antihypertensives meds on the chart from home. Cervical Radiculopathy Outpatient managment Hyperlipidemia Mgmt: Home Crestor 10mg PO HS BiPolar DO, Depression, Schizophrenia, Anxiety Will Consider Psych consult for a medicatio reconcilliation. Mgmt: Cont. Home Meds Klonopin 1mg PO TID Duloxetine 30mg PO Daily Lexapro 20mg PO Daily Riperidone 2mg PO BID Urge Incontinene Mgmt: Vesicare 5mg PO not in Formulary Tolterodine 1mg PO BID Insomnia Mgmt: Ambien 5mg PO HS Colon CA (Stage IV) Outpatient Chemo. Proph Lovenox daily Dispo: Patient to be DC'd today. No new medications will be added during this visit. Patient asked to follow up with PMD within 7 days of discharged and urged to make an appointment today. She is to do neck stretches and exercises for her cervical radiculopathy, she can take Tylenol or NSAIDs as needed. Patient discussed with Attending (Dr. Lobo howard) Josemanuel Moser, PGY-2
== END 2018-05-16 11:39 | disposition home or self-care (01) ==
LOC: C.ER 18:59 → C.9E 21:39 → C.5S 22:42
PROVIDERS: ADMIT Internal Medicine Nephrology; ATTEND Internal Medicine Nephrology
DX: R07.89 Other chest pain (principal); C78.7 Secondary malignant neoplasm of liver and intrahepatic bile duct; C18.9 Malignant neoplasm of colon, unspecified; C78.00 Secondary malignant neoplasm of unspecified lung; J45.909 Unspecified asthma, uncomplicated; I10 Essential (primary) hypertension; F31.9 Bipolar disorder, unspecified; F20.9 Schizophrenia, unspecified; M06.9 Rheumatoid arthritis, unspecified; F41.9 Anxiety disorder, unspecified; M54.12 Radiculopathy, cervical region; E78.5 Hyperlipidemia, unspecified
CPT/HCPCS: 36415; 71045; 80053; 81001; 83735; 83880; 84100; 84484; 85025; 85610; 85730; 93005; 96374; 99285; G0378; J1650; J1885

== ENCOUNTER 2018-05-19 12:59 | Observation (INO) | payer MEDICARE ==
[2018-05-19 12:59] VITALS: BMI 37.3
--- NOTE | 2018-05-19 15:29 | C.PDOC ---
History Of Present Illness 47 y/o female,w/PMhx of colon cancer with metastisis to liver and lungs, hypercholesterolemia, anxiety, and depression presents to the ER for evaluation of epigastric abdominal pain and 1 episode of hematemesis. Patient states that s he had chemotherapy today. Afterwards, patient noticed that she had epigastric abdominal pain without radiation. Patient notes that the pain is different from her normal abdominal pain. She states that she ate a Snickers bar and she had 1 episode of bright red blood vomiting. She reports that she had a similar episode when she was admitted in the hospital 1 year ago. Denies having fever,chills, ni ght sweats, coughing blood, constipation, diarrhea, dark/bloody stool, hx of gastric ulcers, and blood thinner use. PMD: Dr. Deloris Harris Time Seen by Provider: 05/19/18 14:34 Chief Complaint (Nursing): GI Problem History Per: Patient History/Exam Limitations: no limitations Onset/Duration Of Symptoms: Days Current Symptoms Are (Timing): Still Present Severity: Moderate Location Of Pain/Discomfort: Epigastric Associated Symptoms: Vomiting. denies: Fever, Chills, Urinary Symptoms Past Medical History Reviewed: Historical Data, Nursing Documentation, Vital Signs Vital Signs: Last Vital Signs Temp 97.4 F L 05/19/18 13:18 Pulse 95 H 05/19/18 14:33 Resp 17 05/19/18 14:33 BP 147/93 H 05/19/18 13:18 Pulse Ox 98 05/19/18 14:33 - Medical History PMH: Anemia, Anxiety, Arthritis, Asthma, Back Problems, Bipolar Disorder, Depression, HTN, Malignancy (Colon), Rheumatoid Arthritis, Schizophrenia Denies: Chronic Kidney Disease Other Surgeries: Hx of surgeries - [facility] Procedures CLOSED ENDOSCOPIC BIOPSY OF LARGE INTESTINE (05/23/14) COLONOSCOPY (08/12/14) DX ULTRASOUND-ABDOMEN (05/23/14) EXCISION OF STOMACH, ENDO, DIAGN (01/13/18) INSERTION OF TOTALLY IMPLANTABLE VASC ACCESS DEVIC (05/23/14) LAPAROSCOP LYSIS-PERITONEAL ADHES (05/23/14) LAPAROSCOPIC SIGMOIDECTOMY (05/23/14) OTHER ENDOSCOPY OF SM INTEST (05/23/14) PACKED CELL TRANSFUSION (05/23/14) PERCUTAN NEEDLE BX OF LIVER (05/23/14) REMOVAL OF VAD FROM TRUNK SUBCU/FASCIA, PERC APPROACH (03/16/15) Family History: States: No Known Family Hx - Social History Hx Tobacco Use: No Hx Alcohol Use: No Hx Substance Use: No - Immunization History Hx Tetanus Toxoid Vaccination: No Hx Influenza Vaccination: Yes Hx Pneumococcal Vaccination: No Review Of Systems Constitutional: Negative for: Fever, Chills, Sweats Eyes: Negative for: Pain, Vision Change ENT: Negative for: Ear Pain, Ear Discharge, Nose Pain, Nose Discharge Cardiovascular: Negative for: Chest Pain, Palpitations, Orthopnea Respiratory: Negative for: Cough, Shortness of Breath, Hemoptysis, SOB with Excertion Gastrointestinal: Positive for: Nausea, Abdominal Pain, Hematemesis. Negative for: Diarrhea, Constipation Genitourinary: Negative for: Dysuria, Hematuria Physical Exam - Physical Exam Appears: Well, Non-toxic, No Acute Distress Skin: Normal Color, Warm, Dry Head: Atraumatic, Normacephalic Eye(s): bilateral: Normal Inspection, PERRL, EOMI Nose: Normal, No Flaring, No Discharge Oral Mucosa: Moist Tongue: Normal Appearing Lips: Normal Appearing Gingiva: Normal Appearing Throat: Normal, No Erythema, No Exudate Neck: Normal, Normal ROM, Supple, Other (no meningeal signs) Lymphatic: No Adenopathy Chest: Symmetrical Cardiovascular: Rhythm Regular Respiratory: Normal Breath Sounds, No Rales, No Rhonchi, No Wheezing Gastrointestinal/Abdominal: Soft, Tenderness (epigastric tenderness), No Mass, No Distention, No Guarding, No Rebound, No Hernia Back: Normal Inspection, No CVA Tenderness, No Vertebral Tenderness Extremity: Normal ROM, No Tenderness, No Pedal Edema, No Swelling Neurological/Psych: Oriented x3, Normal Speech, Normal Cognition, No Cerebellar Signs, Normal Motor Gait: Steady ED Course And Treatment - Laboratory Results Result Diagrams: 05/19/18 16:06 05/19/18 16:06 O2 Sat by Pulse Oximetry: 98 (RA) Pulse Ox Interpretation: Normal Medical Decision Making Medical Decision Makin47 y/o female,w/PMhx of colon cancer with metastisis to liver and lungs, hypercholesterolemia, anxiety, and depression presents to the ER for evaluation of epigastric abdominal pain and 1 episode of hematemesis. Pt denies being on any blood thinners. She denies any fall or trauma. No history of ulcers per patient. No fever, chills or night sweats. Plan: --Labs --IV Fluids --Zofran IV --Protonix IV 1723 H&H largely unchanged, however given elevated APTT and comorbidities will likely require obs. labs otherwise largely unremarkable Repeat exam largely unremarkable. CXR unremarkable protonix given. Appreciate consult w/ Dr. Harris, to obs to his service. Pt in NAD, agreeable to plan. Disposition - Disposition Disposition Time: 17:26 Condition: GOOD Forms: [employer] (Dutch) - Clinical Impression Clinical Impression: Hematemesis, Elevated partial thromboplastin time (PTT) - Scribe Statement The provider has reviewed the documentation as recorded by the Christopheribirasema Jennings Provider Attestation: All medical record entries made by the Scribe were at my direction and personally dictated by me. I have reviewed the chart and agree that the record accurately reflects my personal performance of the history, physical exam, medical decision making, and the department course for this patient. I have also personally directed, reviewed, and agree with the discharge instructions and disposition.
[2018-05-19] MEDS ORDERED: Sodium Chloride 0.9% 1,000 ML ONE (16:10)
[2018-05-19] MEDS: Sodium Chloride 0.9% 1,000 ML IV SCH (16:12)
[2018-05-19 16:27] LABS: INR 1.2; PROTHROMBIN TIME 12.8 SECONDS (9.7-12.2)
[2018-05-19 16:34] LABS: ALB/GLOB RATIO 1.5 (1.0-2.1); ALT/SGPT 32 U/L (9-52); AST/SGOT 34 U/L (14-36); BLOOD UREA NITROGEN 9 mg/dL (7-17); CALCIUM 9.3 mg/dl (8.6-10.4); GFR NON-AFRICAN AMERICAN > 60; LIPASE 93 U/L (23-300)
[2018-05-19 16:56] LABS: BASO % 0.4 % (0.0-2.0); EOS % 0.4 % (0.0-4.0); HEMOGLOBIN 10.7 g/dL (11.0-16.0); MEAN CELL VOLUME 82.8 fL (81.0-99.0); MEAN CORPUSCULAR HEMOGLOBIN 26.9 pg (27.0-31.0); MEAN CORPUSCULAR HGB CONC 32.4 g/dL (33.0-37.0); MEAN PLATELET VOLUME 8.4 fL (7.2-11.7); MONO # 0.3 K/uL (0.0-0.8); MONO % 6.4 % (0.0-10.0); NEUT # 2.9 K/uL (1.8-7.0); NEUT % 69.8 % (50.0-75.0); NRBC % 0.1 % (0.0-2.0); RBC 3.99 Mil/uL (3.80-5.20); RED CELL DISTRIBUTION WIDTH 19.9 % (11.5-14.5); WHITE BLOOD COUNT 4.1 K/uL (4.8-10.8)
[2018-05-19 18:26] VITALS: RESP 20
[2018-05-19] MEDS ORDERED: Morphine 4 MG/ML VIAL ONE (18:35)
--- NOTE | 2018-05-19 19:29 | CP.PCM.HP ---
Past Patient History - Infectious Disease Hx of Infectious Diseases: None - Past Medical History & Family History Past Medical History?: Yes - Past Social History Smoking Status: Never Smoked - CARDIAC Hx Hypertension: Yes - PULMONARY Hx Asthma: Yes - NEUROLOGICAL Hx Neurological Disorder: No - HEENT Hx HEENT Problems: No - RENAL Hx Chronic Kidney Disease: No - ENDOCRINE/METABOLIC Hx Endocrine Disorders: No - HEMATOLOGICAL/ONCOLOGICAL Hx Anemia: Yes - INTEGUMENTARY Hx Dermatological Problems: No - MUSCULOSKELETAL/RHEUMATOLOGICAL Hx Arthritis: Yes Hx Rheumatoid Arthritis: Yes - GASTROINTESTINAL Hx Gastrointestinal Disorders: Yes Hx Bowel Surgery: Yes Other/Comment: COLON CANCER STAGE 4 WITH CHEMOTHERAPY. R side port a cath - GENITOURINARY/GYNECOLOGICAL Hx Genitourinary Disorders: No - PSYCHIATRIC Hx Anxiety: Yes Hx Bipolar Disorder: Yes Hx Depression: Yes Hx Schizophrenia: Yes Hx Substance Use: No - SURGICAL HISTORY Hx Surgeries: Yes (SEE COMMENT) Hx Orthopedic Surgery: Yes (left knee TKR 03/2017) Hx Tubal Ligation: Yes (2005) Hx Vascular Access Device: Yes (RIGHT SUBCLAVIAN 2014) Other/Comment: colon cancer surgery april 2014 to remove tumor, rt side subclavian Port - ANESTHESIA Hx Anesthesia: Yes Hx Anesthesia Reactions: No Hx Malignant Hyperthermia: No Meds Allergies/Adverse Reactions: Allergies Allergy/AdvReac Type Severity Reaction Status Date / Time No Known Allergies Allergy Verified 05/19/18 13:21 Physical Exam - Constitutional Appears: Well - Head Exam Head Exam: ATRAUMATIC, NORMAL INSPECTION, NORMOCEPHALIC - Eye Exam Eye Exam: EOMI, Normal appearance, PERRL Pupil Exam: NORMAL ACCOMODATION, PERRL - ENT Exam ENT Exam: Mucous Membranes Moist, Normal Exam - Neck Exam Neck exam: Positive for: Normal Inspection - Respiratory Exam Respiratory Exam: Decreased Breath Sounds - Cardiovascular Exam Cardiovascular Exam: REGULAR RHYTHM, +S1, +S2 - GI/Abdominal Exam GI & Abdominal Exam: Diminished Bowel Sounds, Soft - Rectal Exam Rectal Exam: Deferred Results - Vital Signs Recent Vital Signs: Last Vital Signs Temp 98.2 F 05/19/18 18:26 Pulse 84 05/19/18 18:26 Resp 20 05/19/18 18:26 BP 154/93 H 05/19/18 18:26 Pulse Ox 96 05/19/18 18:26 - Labs Result Diagrams: 05/19/18 16:06 05/19/18 16:06 Labs: Laboratory Results - last 24 hr 05/19/18 05/19/18 05/19/18 16:06 16:06 16:06 WBC 4.1 L RBC 3.99 Hgb 10.7 L Hct 33.0 L MCV 82.8 MCH 26.9 L MCHC 32.4 L RDW 19.9 H Plt Count 126 L MPV 8.4 Neut % (Auto) 69.8 Lymph % (Auto) 23.0 Motley % (Auto) 6.4 Eos % (Auto) 0.4 Baso % (Auto) 0.4 Neut # (Auto) 2.9 Lymph # (Auto) 1.0 Motley # (Auto) 0.3 Eos # (Auto) 0.0 Baso # (Auto) 0.0 Differential Comment PT 12.8 H INR 1.2 APTT 57 H Sodium 138 Potassium 4.2 Chloride 106 Carbon Dioxide 27 Anion Gap 8 L BUN 9 Creatinine 0.7 Est GFR ( Amer) > 60 Est GFR (Non-Af Amer) > 60 Random Glucose 86 Calcium 9.3 Total Bilirubin 0.4 AST 34 ALT 32 Alkaline Phosphatase 90 Total Protein 6.7 Albumin 4.0 Globulin 2.7 Albumin/Globulin Ratio 1.5 Lipase 93 Blood Type Antibody Screen 05/19/18 16:06 WBC RBC Hgb Hct MCV MCH MCHC RDW Plt Count MPV Neut % (Auto) Lymph % (Auto) Motley % (Auto) Eos % (Auto) Baso % (Auto) Neut # (Auto) Lymph # (Auto) Motley # (Auto) Eos # (Auto) Baso # (Auto) Differential Comment PT INR APTT Sodium Potassium Chloride Carbon Dioxide Anion Gap BUN Creatinine Est GFR ( Amer) Est GFR (Non-Af Amer) Random Glucose Calcium Total Bilirubin AST ALT Alkaline Phosphatase Total Protein Albumin Globulin Albumin/Globulin Ratio Lipase Blood Type A POSITIVE Antibody Screen Negative
[2018-05-19] MEDS ORDERED: Albuterol-Ipratrop 3 mg / 0.5 (3 ml) UD INH PRN (21:16)
[2018-05-19] MEDS: Morphine 4 MG/ML VIAL IVP PRN (21:47)
[2018-05-19 22:48] LABS: CK-MB 0.98 ng/mL (0.0-3.38)
[2018-05-20] MEDS: Sodium Chloride 0.9% 1,000 ML IV SCH ×2 (01:05→10:36)
[2018-05-20] MEDS: Morphine 4 MG/ML VIAL IVP PRN ×4 (04:10→22:31)
[2018-05-20 06:51] LABS: CK-MB 0.76 ng/mL (0.0-3.38)
--- NOTE | 2018-05-20 09:17 | RAD ---
Date of service: 05/19/2018 HISTORY: Abdominal pain COMPARISON: Comparison made with chest radiograph dated 05/13/2018. TECHNIQUE: Chest PA and lateral views FINDINGS: Right-sided MediPort tip in the SVC unchanged. LUNGS: No active pulmonary disease. PLEURA: No significant pleural effusion identified. No pneumothorax apparent. CARDIOVASCULAR: No aortic atherosclerotic calcification present. Normal cardiac size. No pulmonary vascular congestion. OSSEOUS STRUCTURES: Mild multilevel degenerative spondylosis of the thoracic spine VISUALIZED UPPER ABDOMEN: Normal. OTHER FINDINGS: None. IMPRESSION: No active disease.
[2018-05-20] MEDS: Pantoprazole 40 mg EC Tab PO SCH (09:48)
[2018-05-20] MEDS ORDERED: Enoxaparin 40 mg Syringe SC SCH (10:00)
--- NOTE | 2018-05-20 11:27 | CP.PCM.PN ---
Subjective - Date & Time of Evaluation Date of Evaluation: 05/20/18 - Subjective Subjective: patient denies fever, nausea, SOB, vomiting Objective - Vital Signs/Intake and Output Vital Signs (last 24 hours): Temp Pulse Resp BP Pulse Ox 98.4 F 78 20 142/94 H 96 05/20/18 08:00 05/20/18 08:00 05/20/18 08:00 05/20/18 08:00 05/20/18 08:00 Intake and Output: 05/20/18 05/20/18 06:59 18:59 Intake Total 550 Balance 550 - Medications Medications: Current Medications Albuterol/Ipratropium (Duoneb 3 Mg/0.5 Mg (3 Ml) Ud) 3 ml INH RQ6 PRN PRN Reason: Shortness of Breath Clonazepam (Klonopin) 2 mg PO Q8H [facility] Last Admin: 05/20/18 05:50 Dose: 2 mg Docusate Sodium (Colace) 100 mg PO BID [facility] Last Admin: 05/20/18 10:26 Dose: 100 mg Duloxetine HCl (Cymbalta) 30 mg PO DAILY [facility] Last Admin: 05/20/18 09:48 Dose: 30 mg Escitalopram Oxalate (Lexapro) 20 mg PO DAILY [facility] Last Admin: 05/20/18 10:26 Dose: 20 mg Sodium Chloride (Sodium Chloride 0.9%) 1,000 mls @ 100 mls/hr IV .Q10H [facility] Last Admin: 05/20/18 10:36 Dose: 100 mls/hr Morphine Sulfate (Morphine) 4 mg IVP Q6H PRN PRN Reason: Pain, moderate (4-7) Last Admin: 05/20/18 10:32 Dose: 4 mg Ondansetron HCl (Zofran Inj) 4 mg IVP Q8H PRN PRN Reason: Nausea/Vomiting Pantoprazole Sodium (Protonix Ec Tab) 40 mg PO DAILY [facility] Last Admin: 05/20/18 09:48 Dose: 40 mg Risperidone (Risperdal Tab) 2 mg PO DAILY [facility] Last Admin: 05/20/18 09:48 Dose: 2 mg Rosuvastatin Calcium (Crestor) 10 mg PO HS [facility] Last Admin: 05/19/18 21:47 Dose: 10 mg Zolpidem Tartrate (Ambien) 5 mg PO HS PRN PRN Reason: Insomnia - Labs Labs: 05/19/18 16:06 05/19/18 16:06 PT 12.8 SECONDS (9.7-12.2) H 05/19/18 16:06 INR 1.2 05/19/18 16:06 APTT 57 SECONDS (21-34) H 05/19/18 16:06 - Constitutional Appears: Well - Head Exam Head Exam: ATRAUMATIC, NORMAL INSPECTION, NORMOCEPHALIC - Eye Exam Eye Exam: EOMI, Normal appearance, PERRL Pupil Exam: NORMAL ACCOMODATION, PERRL - ENT Exam ENT Exam: Mucous Membranes Moist, Normal Exam - Neck Exam Neck Exam: Full ROM, Normal Inspection. absent: Lymphadenopathy - Respiratory Exam Respiratory Exam: Decreased Breath Sounds - Cardiovascular Exam Cardiovascular Exam: REGULAR RHYTHM, +S1, +S2 - GI/Abdominal Exam GI & Abdominal Exam: Soft, Diminished Bowel Sounds - Rectal Exam Rectal Exam: Deferred Assessment and Plan - Assessment and Plan (Free Text) Plan: medications reviewed colace lexapro pantoprazole vitals signs checked xray reviewed
[2018-05-20 14:25] LABS: CK-MB 0.99 ng/mL (0.0-3.38)
[2018-05-20] MEDS ORDERED: Sodium Chloride 0.9% 1,000 ML IV SCH (16:43)
--- NOTE | 2018-05-20 20:13 | CP.PCM.CON ---
History of Present Illness - History of Present Illness History of Present Illness: 47 year old female with history of depression, stage IV colon cancer with liver and lung metastasis dx in 05/2014, on chemotherapy (FOLFIRI + Avastin), admitted with hematemesis. The patient has been receiving chemotherapy in the office, last dosed Saturday, reporting to vomiting blood a few hours later. She notes to eating a candy bar and throwing up. She saw some blood mixed in with her food. She denies diarrhea, fevers and chills. She denies shortness of breath and chest pain. Past medical history: depression, anemia, colon cancer Past surgical history: Knee surgery, portacatheter placement and removal Family history: Denies hematologic and oncologic problems Social history: Denies tobacco, alcohol, and illicit drug use. Allergies: NKA Review of systems: All remaining review of systems including HEENT, cardiovascular, respiratory, gastrointestinal, genitourinary, musculoskeletal, dermatologic, psychiatric, neurologic are negative unless mentioned in the history of present illness. Past Patient History - Infectious Disease Hx of Infectious Diseases: None - Past Medical History & Family History Past Medical History?: Yes - Past Social History Smoking Status: Never Smoked - CARDIAC Hx Hypertension: Yes - PULMONARY Hx Asthma: Yes - NEUROLOGICAL Hx Neurological Disorder: No - HEENT Hx HEENT Problems: No - RENAL Hx Chronic Kidney Disease: No - ENDOCRINE/METABOLIC Hx Endocrine Disorders: No - HEMATOLOGICAL/ONCOLOGICAL Hx Anemia: Yes - INTEGUMENTARY Hx Dermatological Problems: No - MUSCULOSKELETAL/RHEUMATOLOGICAL Hx Arthritis: Yes Hx Rheumatoid Arthritis: Yes - GASTROINTESTINAL Hx Gastrointestinal Disorders: Yes Hx Bowel Surgery: Yes Other/Comment: COLON CANCER STAGE 4 WITH CHEMOTHERAPY. R side port a cath - GENITOURINARY/GYNECOLOGICAL Hx Genitourinary Disorders: No - PSYCHIATRIC Hx Anxiety: Yes Hx Bipolar Disorder: Yes Hx Depression: Yes Hx Schizophrenia: Yes Hx Substance Use: No - SURGICAL HISTORY Hx Surgeries: Yes (SEE COMMENT) Hx Orthopedic Surgery: Yes (left knee TKR 03/2017) Hx Tubal Ligation: Yes (2005) Hx Vascular Access Device: Yes (RIGHT SUBCLAVIAN 2014) Other/Comment: colon cancer surgery april 2014 to remove tumor, rt side subclavian Port - ANESTHESIA Hx Anesthesia: Yes Hx Anesthesia Reactions: No Hx Malignant Hyperthermia: No Meds Allergies/Adverse Reactions: Allergies Allergy/AdvReac Type Severity Reaction Status Date / Time No Known Allergies Allergy Verified 05/19/18 13:21 - Medications Medications: Current Medications Albuterol/Ipratropium (Duoneb 3 Mg/0.5 Mg (3 Ml) Ud) 3 ml INH RQ6 PRN PRN Reason: Shortness of Breath Clonazepam (Klonopin) 2 mg PO Q8H [facility] Last Admin: 05/20/18 12:42 Dose: 2 mg Docusate Sodium (Colace) 100 mg PO BID [facility] Last Admin: 05/20/18 17:57 Dose: 100 mg Duloxetine HCl (Cymbalta) 30 mg PO DAILY [facility] Last Admin: 05/20/18 09:48 Dose: 30 mg Escitalopram Oxalate (Lexapro) 20 mg PO DAILY [facility] Last Admin: 05/20/18 10:26 Dose: 20 mg Sodium Chloride (Sodium Chloride 0.9%) 1,000 mls @ 60 mls/hr IV .[id number] [facility] Morphine Sulfate (Morphine) 4 mg IVP Q6H PRN PRN Reason: Pain, moderate (4-7) Last Admin: 05/20/18 16:31 Dose: 4 mg Ondansetron HCl (Zofran Inj) 4 mg IVP Q8H PRN PRN Reason: Nausea/Vomiting Pantoprazole Sodium (Protonix Ec Tab) 40 mg PO DAILY [facility] Last Admin: 05/20/18 09:48 Dose: 40 mg Risperidone (Risperdal Tab) 2 mg PO DAILY [facility] Last Admin: 05/20/18 09:48 Dose: 2 mg Rosuvastatin Calcium (Crestor) 10 mg PO HS [facility] Last Admin: 05/19/18 21:47 Dose: 10 mg Zolpidem Tartrate (Ambien) 5 mg PO HS PRN PRN Reason: Insomnia Physical Exam - Head Exam Head Exam: ATRAUMATIC - Eye Exam Eye Exam: Normal appearance - ENT Exam ENT Exam: Mucous Membranes Dry - Respiratory Exam Respiratory Exam: NORMAL BREATHING PATTERN - Cardiovascular Exam Cardiovascular Exam: +S1, +S2 - GI/Abdominal Exam GI & Abdominal Exam: Normal Bowel Sounds - Extremities Exam Extremities exam: Positive for: normal inspection - Neurological Exam Neurological exam: Oriented x3 - Psychiatric Exam Psychiatric exam: Normal Affect, Normal Mood - Skin Skin Exam: Warm Results - Vital Signs Recent Vital Signs: Last Vital Signs Temp 97.8 F 05/20/18 15:00 Pulse 74 05/20/18 16:59 Resp 20 05/20/18 15:00 BP 144/86 05/20/18 16:59 Pulse Ox 95 05/20/18 15:00 - Labs Result Diagrams: 05/19/18 16:06 05/19/18 16:06 Labs: Laboratory Results - last 24 hr 05/19/18 05/20/18 05/20/18 22:15 06:12 13:42 Total Creatine Kinase 82 63 71 CK-MB (Mass) 0.98 0.76 0.99 Troponin I < 0.0120 < 0.0120 < 0.0120 Assessment & Plan (1) Pancytopenia Assessment and Plan: mild secondary to chemotherapy anemia of acute blood loss - H/H fairly stable mild thrombocytopenia no current transfusion indication Status: Acute (2) Colon cancer Assessment and Plan: lung and liver metastasis outpatient chemotherapy Thank you for this interesting consult. Status: Acute
[2018-05-21 01:03] VITALS: PULSE 78; TEMP 98.1
[2018-05-21] MEDS: Morphine 4 MG/ML VIAL IVP PRN ×2 (04:20→10:37)
[2018-05-21 07:36] LABS: BASO % 0.4 % (0.0-2.0); HEMOGLOBIN 10.4 g/dL (11.0-16.0); LYMPH # 0.8 K/uL (1.0-4.3); LYMPH % 24.5 % (20.0-40.0); MEAN CORPUSCULAR HEMOGLOBIN 27.2 pg (27.0-31.0); MEAN CORPUSCULAR HGB CONC 32.8 g/dL (33.0-37.0); MEAN PLATELET VOLUME 8.4 fL (7.2-11.7); MONO # 0.2 K/uL (0.0-0.8); MONO % 5.5 % (0.0-10.0); NEUT # 2.1 K/uL (1.8-7.0); NEUT % 68.6 % (50.0-75.0); RBC 3.82 Mil/uL (3.80-5.20); RED CELL DISTRIBUTION WIDTH 19.7 % (11.5-14.5); WHITE BLOOD COUNT 3.1 K/uL (4.8-10.8)
[2018-05-21 07:45] LABS: ALB/GLOB RATIO 1.4 (1.0-2.1); ALBUMIN 3.5 g/dL (3.5-5.0); ALT/SGPT 27 U/L (9-52); AST/SGOT 35 U/L (14-36); BLOOD UREA NITROGEN 17 mg/dL (7-17); CALCIUM 8.5 mg/dl (8.6-10.4); GFR NON-AFRICAN AMERICAN > 60
[2018-05-21 07:58] VITALS: BP 130/89; O2SAT 97
[2018-05-21] MEDS: Pantoprazole 40 mg EC Tab PO SCH (09:46)
--- NOTE | 2018-05-21 12:25 | CP.PCM.PN ---
Subjective - Date & Time of Evaluation Date of Evaluation: 05/21/18 Time of Evaluation: 12:24 - Subjective Subjective: PATIENT SEEN AND EXAMINED AT THE BEDSIDE Objective - Vital Signs/Intake and Output Vital Signs (last 24 hours): Temp Pulse Resp BP Pulse Ox 98.1 F 78 20 130/89 97 05/21/18 07:57 05/21/18 07:57 05/21/18 07:57 05/21/18 07:57 05/21/18 07:57 Intake and Output: 05/21/18 05/21/18 06:59 18:59 Intake Total 1300 Balance 1300 - Medications Medications: Current Medications Albuterol/Ipratropium (Duoneb 3 Mg/0.5 Mg (3 Ml) Ud) 3 ml INH RQ6 PRN PRN Reason: Shortness of Breath Clonazepam (Klonopin) 2 mg PO Q8H [facility] Last Admin: 05/21/18 05:26 Dose: 2 mg Docusate Sodium (Colace) 100 mg PO BID [facility] Last Admin: 05/21/18 09:46 Dose: 100 mg Duloxetine HCl (Cymbalta) 30 mg PO DAILY [facility] Last Admin: 05/21/18 09:46 Dose: 30 mg Escitalopram Oxalate (Lexapro) 20 mg PO DAILY [facility] Last Admin: 05/21/18 09:45 Dose: 20 mg Morphine Sulfate (Morphine) 4 mg IVP Q6H PRN PRN Reason: Pain, moderate (4-7) Last Admin: 05/21/18 10:37 Dose: 4 mg Ondansetron HCl (Zofran Inj) 4 mg IVP Q8H PRN PRN Reason: Nausea/Vomiting Pantoprazole Sodium (Protonix Ec Tab) 40 mg PO DAILY [facility] Last Admin: 05/21/18 09:46 Dose: 40 mg Risperidone (Risperdal Tab) 2 mg PO DAILY [facility] Last Admin: 05/21/18 09:45 Dose: 2 mg Rosuvastatin Calcium (Crestor) 10 mg PO HS [facility] Last Admin: 05/20/18 22:01 Dose: 10 mg Zolpidem Tartrate (Ambien) 5 mg PO HS PRN PRN Reason: Insomnia - Labs Labs: 05/21/18 07:19 05/21/18 07:19 PT 12.8 SECONDS (9.7-12.2) H 05/19/18 16:06 INR 1.2 05/19/18 16:06 APTT 57 SECONDS (21-34) H 05/19/18 16:06 Assessment and Plan - Assessment and Plan (Free Text) Assessment: FOLLOW UP WITH DR Tila BIANCHI IN HIS OFFICE-----CALL FOR APPOINTMENT FOLLOW UP WITH DR COOK IN HIS OFFICE ----CALL FOR APPOINTMENT CONTINUE HOME MEDICATION NEW PRESCRIPTION GIVEN PROTONIX 40 MG PO DIALY ACTIVITY TOLERATED CALL DR Tila BIANCHI OR GO TO THE EMERGENCY ROOM IF SYMPTOM RETURN OR WORSENING
== END 2018-05-21 13:22 | disposition home or self-care (01) ==
LOC: C.ER 12:59 → C.3T 17:28
PROVIDERS: ADMIT Internal Medicine Nephrology; ATTEND Internal Medicine Nephrology
DX: D61.810 Antineoplastic chemotherapy induced pancytopenia (principal); C18.9 Malignant neoplasm of colon, unspecified; C78.00 Secondary malignant neoplasm of unspecified lung; C78.7 Secondary malignant neoplasm of liver and intrahepatic bile duct; D62 Acute posthemorrhagic anemia; D69.6 Thrombocytopenia, unspecified; K92.0 Hematemesis; F20.9 Schizophrenia, unspecified; F31.9 Bipolar disorder, unspecified; I10 Essential (primary) hypertension; J45.909 Unspecified asthma, uncomplicated; M06.9 Rheumatoid arthritis, unspecified; R79.1 Abnormal coagulation profile; T45.1X5A Adverse effect of antineoplastic and immunosuppressive drugs, initial encounter; E78.00 Pure hypercholesterolemia, unspecified; Z98.51 Tubal ligation status
CPT/HCPCS: 36415; 71046; 80053; 83690; 84484; 85025; 85610; 85730; 86850; 86900; 96374; 99285; C9113; G0378; J1642; J1650; J2270; J2405; J7030

== ENCOUNTER 2018-05-24 23:50 | Observation (INO) | payer MEDICARE ==
[2018-05-24 23:51] VITALS: BMI 37.3
[2018-05-25 00:12] VITALS: RESP 20
[2018-05-25] MEDS ORDERED: Sodium Chloride 0.9% 1,000 ML IV ONE (00:13)
[2018-05-25 00:29] LABS: BASO % 0.5 % (0.0-2.0); EOS # 0.1 K/uL (0.0-0.7); EOS % 1.3 % (0.0-4.0); HEMOGLOBIN 10.3 g/dL (11.0-16.0); LYMPH # 1.2 K/uL (1.0-4.3); LYMPH % 31.3 % (20.0-40.0); MEAN CORPUSCULAR HEMOGLOBIN 26.7 pg (27.0-31.0); MEAN CORPUSCULAR HGB CONC 32.6 g/dL (33.0-37.0); MEAN PLATELET VOLUME 8.4 fL (7.2-11.7); MONO # 0.2 K/uL (0.0-0.8); NEUT # 2.4 K/uL (1.8-7.0); NEUT % 61.9 % (50.0-75.0); RBC 3.86 Mil/uL (3.80-5.20); RED CELL DISTRIBUTION WIDTH 19.1 % (11.5-14.5); WHITE BLOOD COUNT 3.9 K/uL (4.8-10.8)
[2018-05-25 00:34] LABS: INR 1.2; PROTHROMBIN TIME 13.1 SECONDS (9.7-12.2)
[2018-05-25 00:39] LABS: URINE BILIRUBIN NEGATIVE (NEGATIVE); URINE BLOOD NEGATIVE (NEGATIVE); URINE CLARITY Clear (Clear); URINE COLOR Yellow (YELLOW); URINE GLUCOSE (UA) NORMAL (Normal); URINE LEUKOCYTE ESTERASE NEG Leu/uL (Negative); URINE PROTEIN NEGATIVE (NEGATIVE); URINE UROBILINOGEN NORMAL mg/dL (0.2-1.0)
[2018-05-25 00:42] LABS: ALB/GLOB RATIO 2.2 (1.0-2.1); ALBUMIN 4.3 g/dL (3.5-5.0); ALT/SGPT 16 U/L (9-52); AST/SGOT 28 U/L (14-36); BLOOD UREA NITROGEN 10 mg/dL (7-17); CALCIUM 9.3 mg/dl (8.6-10.4); GFR NON-AFRICAN AMERICAN > 60; LIPASE 97 U/L (23-300)
[2018-05-25 00:52] LABS: BARBITURATES, UR NEGATIVE (NEGATIVE); BENZODIAZEPINES, UR NEGATIVE (NEGATIVE); OPIATES, UR NEGATIVE (NEGATIVE); PHENCYCLIDINE, UR NEGATIVE (NEGATIVE)
[2018-05-25 00:53] LABS: HCG,QUALITATIVE URINE NEGATIVE (NEGATIVE)
--- NOTE | 2018-05-25 01:07 | C.PDOC ---
History Of Present Illness 47 year old female presents with hematemesis at home. Patient has Hx of similar complaints without being directly observed. She has been admitted three times this month. Time Seen by Provider: 05/25/18 00:03 Chief Complaint (Nursing): Chest Pain History Per: Patient History/Exam Limitations: no limitations Onset/Duration Of Symptoms: Hrs Current Symptoms Are (Timing): Still Present Radiation Of Pain To:: None Associated Symptoms: Other (Hematemesis) Exacerbating Factors: None Recent travel outside of the [place]: No Past Medical History Reviewed: Historical Data, Nursing Documentation, Vital Signs Vital Signs: Last Vital Signs Temp 97.5 F L 05/25/18 00:04 Pulse 79 05/25/18 00:04 Resp 20 05/25/18 00:04 BP 137/84 05/25/18 00:04 Pulse Ox 99 05/25/18 00:04 - Medical History PMH: Anemia, Anxiety, Arthritis, Asthma, Back Problems, Bipolar Disorder, Depression, HTN, Malignancy (Colon), Rheumatoid Arthritis, Schizophrenia Denies: Chronic Kidney Disease - [facility] Procedures CLOSED ENDOSCOPIC BIOPSY OF LARGE INTESTINE (05/23/14) COLONOSCOPY (08/12/14) DX ULTRASOUND-ABDOMEN (05/23/14) EXCISION OF STOMACH, ENDO, DIAGN (01/13/18) INSERTION OF TOTALLY IMPLANTABLE VASC ACCESS DEVIC (05/23/14) LAPAROSCOP LYSIS-PERITONEAL ADHES (05/23/14) LAPAROSCOPIC SIGMOIDECTOMY (05/23/14) OTHER ENDOSCOPY OF SM INTEST (05/23/14) PACKED CELL TRANSFUSION (05/23/14) PERCUTAN NEEDLE BX OF LIVER (05/23/14) REMOVAL OF VAD FROM TRUNK SUBCU/FASCIA, PERC APPROACH (03/16/15) Family History: States: Unknown Family Hx - Social History Hx Tobacco Use: No Hx Alcohol Use: No Hx Substance Use: No - Immunization History Hx Tetanus Toxoid Vaccination: No Hx Influenza Vaccination: Yes Hx Pneumococcal Vaccination: No Review Of Systems Constitutional: Negative for: Fever, Chills Cardiovascular: Negative for: Chest Pain, Palpitations Respiratory: Negative for: Cough, Shortness of Breath Gastrointestinal: Positive for: Hematemesis. Negative for: Nausea, Vomiting Neurological: Negative for: Weakness, Numbness Physical Exam - Physical Exam Appears: Non-toxic, Other (Bizarre obese white female, no nausea or vomiting in the ER) Skin: Normal Color, Warm Head: Atraumatic, Normacephalic Eye(s): bilateral: Normal Inspection Oral Mucosa: Moist Neck: Normal, Supple Chest: Symmetrical, No Tenderness Cardiovascular: Rhythm Regular Respiratory: Normal Breath Sounds, No Rales, No Rhonchi, No Wheezing Gastrointestinal/Abdominal: Soft, No Tenderness Neurological/Psych: Oriented x3, Normal Speech ED Course And Treatment - Laboratory Results Result Diagrams: 05/25/18 00:23 05/25/18 00:23 Lab Results: PT 13.1 SECONDS (9.7-12.2) H 05/25/18 00:23 INR 1.2 05/25/18:23 APTT 29 SECONDS (21-34) 05/25/18 00:23 Total Bilirubin 0.4 mg/dL (0.2-1.3) 05/25/18 00:23 AST 28 U/L (14-36) 05/25/18 00:23 ALT 16 U/L (9-52) 05/25/18 00:23 Alkaline Phosphatase 70 U/L (38-126) 05/25/18 00:23 Total Protein 6.3 g/dL (6.3-8.3) 05/25/18 00:23 Albumin 4.3 g/dL (3.5-5.0) 05/25/18 00:23 Globulin 2.0 gm/dL (2.2-3.9) L 05/25/18 00:23 Albumin/Globulin Ratio 2.2 (1.0-2.1) H 05/25/18 00: Lipase 97 U/L (23-300) 05/25/18 00: Urine Color Yellow (YELLOW) 05/25/18 00:33 Urine Clarity Clear (Clear) 05/25/18 00:33 Urine pH 6.0 (5.0-8.0) 05/25/18 00:33 Ur Specific [place] 1.003 (1.003-1.030) 05/25/18 00: Urine Protein Negative mg/dL (NEGATIVE) 05/25/18 00: Urine Glucose (UA) Normal mg/dL (Normal) 05/25/18 00: Urine Ketones Negative mg/dL (NEGATIVE) 05/25/18 00: Urine Blood Negative (NEGATIVE) 05/25/18 00:33 Urine Nitrate Negative (NEGATIVE) 05/25/18 00:33 Urine Bilirubin Negative (NEGATIVE) 05/25/18 00:33 Urine Urobilinogen Normal mg/dL (0.2-1.0) 05/25/18 00:33 Ur Leukocyte Esterase Neg Mina/uL (Negative) 05/25/18 00:33 Urine WBC (Auto) < 1 /hpf (0-5) 05/25/18 00:33 Urine RBC (Auto) < 1 /hpf (0-3) 05/25/18 00:33 Urine HCG, Qual Negative (NEGATIVE) 05/25/18 00:33 Urine HCG, Qual Negative (NEGATIVE) 05/25/18 00:33 Lab Interpretation: Normal (ua neg, tox neg.) Urine POC: Negative ECG: Interpreted By Me ECG Rhythm: Sinus Rhythm ECG Interpretation: Normal Rate From EC O2 Sat by Pulse Oximetry: 99 Pulse Ox Interpretation: Normal - Radiology CXR: Interpreted by Me CXR Interpretation: Yes: No Acute Disease - Other Rad abd x 2 X-Ray: Interpreted by Me (+ mild increased stool/gas) Reevaluation Time: 01:07 Reassessment Condition: Improved - Physician Consult Information Outcome Of Conversation: 0100: d/w Dr. Dionisio Harris, PMD, ok to med/surg Obs Medical Decision Making Medical Decision Making: ? hematemasis 4th adm for same this month anxiety with baseline bipolar Disposition Doctor Will See Patient In The: Hospital Counseled Patient/Family Regarding: Studies Performed, Diagnosis - Disposition Disposition: HOSPITALIZED Disposition Time: 01:09 Condition: GOOD - Clinical Impression Clinical Impression: Abdominal discomfort - Scribe Statement The provider has reviewed the documentation as recorded by the Scribirasema Arita All medical record entries made by the Christopheribirasema were at my direction and personally dictated by me. I have reviewed the chart and agree that the record accurately reflects my personal performance of the history, physical exam, medical decision making, and the department course for this patient. I have also personally directed, reviewed, and agree with the discharge instructions and disposition.
[2018-05-25] MEDS ORDERED: Oxycodone/Acetaminophen 5/325 mg Tab PO STA (01:40)
[2018-05-25] MEDS: oxyCODONE 5 mg Immediate Release Tab PO PRN ×2 (05:35→13:15)
[2018-05-25] MEDS: Albuterol HFA 90 mcg/actuation (8 g) IH SCH ×4 (08:59→20:22)
[2018-05-25] MEDS ORDERED: Pantoprazole 40 mg EC Tab PO SCH (10:00)
--- NOTE | 2018-05-25 13:16 | RAD ---
Date of service: 05/25/2018 PROCEDURE: Radiographs of the chest and abdomen (obstructive series) HISTORY: abd pain COMPARISON: No prior. TECHNIQUE: AP radiograph of the chest, with upright and supine radiographs of the abdomen. 3 views obtained. FINDINGS: CHEST: Lungs: Clear. Cardiovascular: Normal size heart. No pulmonary vascular congestion. No aortic atherosclerotic calcification present Pleura: No pleural fluid. No pneumothorax. Other findings: None. ABDOMEN AND PELVIS: Bowel: Mild constipation noted, otherwise unremarkable bowel gas pattern. No evidence of mechanical obstruction. Free air: None. Bones: Unremarkable. Other findings: None. IMPRESSION: Mild constipation noted, otherwise unremarkable radiographs of chest and abdomen. No evidence of mechanical bowel obstruction.
--- NOTE | 2018-05-25 14:06 | CP.PCM.HP ---
Past Patient History - Infectious Disease Hx of Infectious Diseases: None - Past Medical History & Family History Past Medical History?: Yes - Past Social History Smoking Status: Never Smoked - CARDIAC Hx Hypertension: Yes - PULMONARY Hx Asthma: Yes - NEUROLOGICAL Hx Neurological Disorder: No - HEENT Hx HEENT Problems: No - RENAL Hx Chronic Kidney Disease: No - ENDOCRINE/METABOLIC Hx Endocrine Disorders: No - HEMATOLOGICAL/ONCOLOGICAL Hx Anemia: Yes - INTEGUMENTARY Hx Dermatological Problems: No - MUSCULOSKELETAL/RHEUMATOLOGICAL Hx Arthritis: Yes Hx Rheumatoid Arthritis: Yes - GASTROINTESTINAL Hx Gastrointestinal Disorders: Yes Hx Bowel Surgery: Yes Other/Comment: COLON CANCER STAGE 4 WITH CHEMOTHERAPY. R side port a cath - GENITOURINARY/GYNECOLOGICAL Hx Genitourinary Disorders: No - PSYCHIATRIC Hx Anxiety: Yes Hx Bipolar Disorder: Yes Hx Depression: Yes Hx Schizophrenia: Yes Hx Substance Use: No - SURGICAL HISTORY Hx Surgeries: Yes (SEE COMMENT) Hx Orthopedic Surgery: Yes (left knee TKR 03/2017) Hx Tubal Ligation: Yes (2005) Hx Vascular Access Device: Yes (RIGHT SUBCLAVIAN 2014) Other/Comment: colon cancer surgery april 2014 to remove tumor, rt side subclavian Port - ANESTHESIA Hx Anesthesia: Yes Hx Anesthesia Reactions: No Hx Malignant Hyperthermia: No Meds Allergies/Adverse Reactions: Allergies Allergy/AdvReac Type Severity Reaction Status Date / Time No Known Allergies Allergy Verified 05/25/18 00:12 Physical Exam - Constitutional Appears: Well - Head Exam Head Exam: ATRAUMATIC, NORMAL INSPECTION, NORMOCEPHALIC - Eye Exam Eye Exam: EOMI, Normal appearance, PERRL Pupil Exam: NORMAL ACCOMODATION, PERRL - ENT Exam ENT Exam: Mucous Membranes Moist, Normal Exam - Neck Exam Neck exam: Positive for: Normal Inspection - Respiratory Exam Respiratory Exam: Decreased Breath Sounds - Cardiovascular Exam Cardiovascular Exam: REGULAR RHYTHM, +S1, +S2 - GI/Abdominal Exam GI & Abdominal Exam: Diminished Bowel Sounds, Soft - Rectal Exam Rectal Exam: Deferred Results - Vital Signs Recent Vital Signs: Last Vital Signs Temp 97.5 F L 05/25/18 08:27 Pulse 86 05/25/18 08:27 Resp 20 05/25/18 08:27 BP 119/75 05/25/18 08:27 Pulse Ox 96 05/25/18 08:27 - Labs Result Diagrams: 05/25/18 00:23 05/25/18 00:23 Labs: Laboratory Results - last 24 hr 05/25/18 05/25/18 05/25/18 00:23 00:23 00:23 WBC 3.9 L RBC 3.86 Hgb 10.3 L Hct 31.7 L MCV 82.0 MCH 26.7 L MCHC 32.6 L RDW 19.1 H Plt Count 135 MPV 8.4 Neut % (Auto) 61.9 Lymph % (Auto) 31.3 [place] % (Auto) 5.0 Eos % (Auto) 1.3 Baso % (Auto) 0.5 Neut # (Auto) 2.4 Lymph # (Auto) 1.2 [place] # (Auto) 0.2 Eos # (Auto) 0.1 Baso # (Auto) 0.0 PT 13.1 H INR 1.2 APTT 29 Sodium 136 Potassium 3.7 Chloride 104 Carbon Dioxide 26 Anion Gap 9 L BUN 10 Creatinine 0.7 Est GFR ( Amer) > 60 Est GFR (Non-Af Amer) > 60 Random Glucose 121 H D Calcium 9.3 Total Bilirubin 0.4 AST 28 ALT 16 Alkaline Phosphatase 70 Total Protein 6.3 Albumin 4.3 Globulin 2.0 L Albumin/Globulin Ratio 2.2 H Lipase 97 Urine Color Urine Clarity Urine pH Ur Specific [place] Urine Protein Urine Glucose (UA) Urine Ketones Urine Blood Urine Nitrate Urine Bilirubin Urine Urobilinogen Ur Leukocyte Esterase Urine WBC (Auto) Urine RBC (Auto) Urine HCG, Qual Urine Opiates Screen Urine Methadone Screen Ur Barbiturates Screen Ur Phencyclidine Scrn Ur Amphetamines Screen U Benzodiazepines Scrn U Oth Cocaine Metabols U Cannabinoids Screen 05/25/18 05/25/18 00:33 00:33 WBC RBC Hgb Hct MCV MCH MCHC RDW Plt Count MPV Neut % (Auto) Lymph % (Auto) [place] % (Auto) Eos % (Auto) Baso % (Auto) Neut # (Auto) Lymph # (Auto) [place] # (Auto) Eos # (Auto) Baso # (Auto) PT INR APTT Sodium Potassium Chloride Carbon Dioxide Anion Gap BUN Creatinine Est GFR ( Amer) Est GFR (Non-Af Amer) Random Glucose Calcium Total Bilirubin AST ALT Alkaline Phosphatase Total Protein Albumin Globulin Albumin/Globulin Ratio Lipase Urine Color Yellow Urine Clarity Clear Urine pH 6.0 Ur Specific [place] 1.003 Urine Protein Negative Urine Glucose (UA) Normal Urine Ketones Negative Urine Blood Negative Urine Nitrate Negative Urine Bilirubin Negative Urine Urobilinogen Normal Ur Leukocyte Esterase Neg Urine WBC (Auto) < 1 Urine RBC (Auto) < 1 Urine HCG, Qual Negative Urine Opiates Screen Negative Urine Methadone Screen Negative Ur Barbiturates Screen Negative Ur Phencyclidine Scrn Negative Ur Amphetamines Screen Negative U Benzodiazepines Scrn Negative U Oth Cocaine Metabols Negative U Cannabinoids Screen Negative
[2018-05-26] MEDS: oxyCODONE 5 mg Immediate Release Tab PO PRN ×2 (00:10→12:52)
[2018-05-26] MEDS: Albuterol HFA 90 mcg/actuation (8 g) IH SCH ×2 (00:48→04:02)
[2018-05-26 06:41] LABS: BASO % 0.6 % (0.0-2.0); EOS % 1.6 % (0.0-4.0); HEMOGLOBIN 10.2 g/dL (11.0-16.0); LYMPH # 1.1 K/uL (1.0-4.3); LYMPH % 44.8 % (20.0-40.0); MEAN CELL VOLUME 83.1 fL (81.0-99.0); MEAN CORPUSCULAR HGB CONC 32.5 g/dL (33.0-37.0); MEAN PLATELET VOLUME 8.4 fL (7.2-11.7); MONO # 0.2 K/uL (0.0-0.8); MONO % 7.4 % (0.0-10.0); NEUT # 1.2 K/uL (1.8-7.0); NEUT % 45.6 % (50.0-75.0); NRBC % 0.1 % (0.0-2.0); RBC 3.77 Mil/uL (3.80-5.20); RED CELL DISTRIBUTION WIDTH 19.3 % (11.5-14.5); WHITE BLOOD COUNT 2.5 K/uL (4.8-10.8)
[2018-05-26 08:32] VITALS: BP 134/88; PULSE 75; TEMP 97.2; O2SAT 98
[2018-05-26] MEDS ORDERED: Magnesium Hydroxide Susp 30 ml UD PO ONE (10:00)
[2018-05-26] MEDS ORDERED: Magnesium Hydroxide Susp 30 ml UD ONE (11:07)
[2018-05-26 12:10] LABS: ALB/GLOB RATIO 1.5 (1.0-2.1); ALBUMIN 3.6 g/dL (3.5-5.0); ALT/SGPT 19 U/L (9-52); AST/SGOT 27 U/L (14-36); BLOOD UREA NITROGEN 14 mg/dL (7-17); CALCIUM 8.9 mg/dl (8.6-10.4); GFR NON-AFRICAN AMERICAN 59
--- NOTE | 2018-05-26 13:15 | CP.PCM.PN ---
Subjective - Date & Time of Evaluation Date of Evaluation: 05/26/18 Time of Evaluation: 13:14 - Subjective Subjective: Medicine Progress Note: Patient seen and examined at bedside. Per nursing no acute events occurred overnight .Patient denies any fevers, chills, headaches dizziness, changes in vision, abdominal pain, syncopal episodes, or any other complaints. Objective - Vital Signs/Intake and Output Vital Signs (last 24 hours): Temp Pulse Resp BP Pulse Ox 97.2 F L 75 20 134/88 98 05/26/18 08:00 05/26/18 08:00 05/26/18 08:00 05/26/18 08:00 05/26/18 08:00 Intake and Output: 05/26/18 05/26/18 06:59 18:59 Intake Total 300 Balance 300 - Medications Medications: Current Medications Albuterol (Ventolin Hfa 90 Mcg/Actuation (8 G)) 1 puff IH RQ4 [facility] Last Admin: 05/26/18 04:02 Dose: Not Given Clonazepam (Klonopin) 2 mg PO TID [facility] Last Admin: 05/25/18 17:23 Dose: 2 mg Docusate Sodium (Colace) 100 mg PO BID [facility] Duloxetine HCl (Cymbalta) 30 mg PO DAILY [facility] Last Admin: 05/25/18 10:34 Dose: 30 mg Escitalopram Oxalate (Lexapro) 20 mg PO DAILY [facility] Last Admin: 05/25/18 10:35 Dose: 20 mg Heparin Sodium (Porcine) (Heparin) 5,000 units SC Q12 [facility] Oxycodone HCl (Oxycodone Immediate Release Tab) 15 mg PO Q6 PRN PRN Reason: Pain, moderate (4-7) Last Admin: 05/26/18 12:52 Dose: 15 mg Pantoprazole Sodium (Protonix Ec Tab) 40 mg PO DAILY [facility] Last Admin: 05/25/18 10:34 Dose: 40 mg Risperidone (Risperdal Tab) 2 mg PO BID [facility] Last Admin: 05/25/18 17:23 Dose: 2 mg Rosuvastatin Calcium (Crestor) 10 mg PO HS [facility] Last Admin: 05/25/18 21:23 Dose: 10 mg Zolpidem Tartrate (Ambien) 5 mg PO HS PRN PRN Reason: Insomnia Last Admin: 05/25/18 21:24 Dose: 5 mg - Labs Labs: 05/26/18 06:24 05/26/18 06:24 PT 13.1 SECONDS (9.7-12.2) H 05/25/18 00:23 INR 1.2 05/25/18 00:23 APTT 29 SECONDS (21-34) 05/25/18 00:23 - Head Exam Head Exam: ATRAUMATIC, NORMAL INSPECTION - Eye Exam Eye Exam: EOMI, Normal appearance, PERRL Pupil Exam: NORMAL ACCOMODATION, PERRL. absent: Irregular, Unequal - ENT Exam ENT Exam: Mucous Membranes Moist, Normal Oropharynx - Neck Exam Neck Exam: Normal Inspection - Respiratory Exam Respiratory Exam: Clear to Ausculation Bilateral, NORMAL BREATHING PATTERN. absent: Prolonged Expiratory Phase, Respiratory Distress - Cardiovascular Exam Cardiovascular Exam: REGULAR RHYTHM, +S1, +S2. absent: Rubs - GI/Abdominal Exam GI & Abdominal Exam: Soft, Normal Bowel Sounds. absent: Hyperactive Bowel Sounds - Back Exam Back Exam: NORMAL INSPECTION. absent: paraspinal tenderness - Neurological Exam Neurological Exam: Alert, Awake, CN II-XII Intact, Oriented x3 - Psychiatric Exam Psychiatric exam: Normal Affect, Normal Mood. absent: Depressed - Skin Skin Exam: Dry, Intact Assessment and Plan - Assessment and Plan (Free Text) Plan: ?Hematemasis Abdominal series:Mild constipation noted, otherwise unremarkable radiographs of chest and abdomen. No evidence of mechanical bowel obstruction. Hgb 10.2 today. Stable Hemodynamically stable Metastatic colon cancer Stage IV; mets to liver and lung Lung biopsy (on 08/19/17): Metastatic adenocarcinoma. Consistent w/ primary colon source Hx of Anemia of Chronic Disease Hgb stable Monitor Bipolar disorder Continue home medication: Risperdal 2mg PO BID Depression Continue home medication: Cymbalta 30mg PO Daily Anxiety Continue home medication: Klonopin 2mg PO TID Insomnia Continue home medication: Ambien 5 mg PO HS Prophylactic Care Protonix 40mg PO Daily Heparin 5000 units q12 SC Daily Dispo: Patient cleared for discharge. Patient hemoglobin stable and hemodynamically stable. Discharge Instructions: 1.F/u with pmd within 5 days of discharge. 2.Return to hospital for any new or worsening symptoms. Medications: 1.Risperdal 2mg PO BID, #60, No refills All management per Dr. Dionisio Montes, PGY-2
== END 2018-05-26 14:59 | disposition home or self-care (01) ==
LOC: C.ER 23:50 → C.3T 05-25 01:10
PROVIDERS: ADMIT Internal Medicine Nephrology; ATTEND Internal Medicine Nephrology
DX: R07.9 Chest pain, unspecified (principal); F41.9 Anxiety disorder, unspecified; F31.9 Bipolar disorder, unspecified; I10 Essential (primary) hypertension; J45.909 Unspecified asthma, uncomplicated; F20.9 Schizophrenia, unspecified; C18.9 Malignant neoplasm of colon, unspecified; C78.7 Secondary malignant neoplasm of liver and intrahepatic bile duct; D63.0 Anemia in neoplastic disease
CPT/HCPCS: 36415; 74022; 80053; 81001; 83690; 83735; 84100; 84703; 85025; 85610; 85730; 94640; 99285; G0378; G0480; J7030

== ENCOUNTER 2018-05-27 21:41 | Emergency (ER) | payer MEDICARE ==
[2018-05-27 21:41] VITALS: BMI 37.3
[2018-05-27 22:47] LABS: SQUAMOUS EPITHIAL < 1 /hpf (0-5); URINE BILIRUBIN NEGATIVE (NEGATIVE); URINE BLOOD NEGATIVE (NEGATIVE); URINE CLARITY Clear (Clear); URINE COLOR Yellow (YELLOW); URINE GLUCOSE (UA) NORMAL (Normal); URINE LEUKOCYTE ESTERASE NEG Leu/uL (Negative); URINE PROTEIN NEGATIVE (NEGATIVE); URINE UROBILINOGEN NORMAL mg/dL (0.2-1.0)
[2018-05-27 22:51] LABS: HCG,QUALITATIVE URINE NEGATIVE (NEGATIVE)
[2018-05-27 22:52] LABS: BASO % 0.5 % (0.0-2.0); EOS % 0.9 % (0.0-4.0); HEMOGLOBIN 10.6 g/dL (11.0-16.0); LYMPH % 35.2 % (20.0-40.0); MEAN CELL VOLUME 82.3 fL (81.0-99.0); MEAN CORPUSCULAR HEMOGLOBIN 27.3 pg (27.0-31.0); MEAN CORPUSCULAR HGB CONC 33.1 g/dL (33.0-37.0); MEAN PLATELET VOLUME 8.5 fL (7.2-11.7); MONO # 0.3 K/uL (0.0-0.8); MONO % 11.3 % (0.0-10.0); NEUT # 1.5 K/uL (1.8-7.0); NEUT % 52.1 % (50.0-75.0); NRBC % 0.1 % (0.0-2.0); RBC 3.87 Mil/uL (3.80-5.20); RED CELL DISTRIBUTION WIDTH 19.2 % (11.5-14.5); WHITE BLOOD COUNT 2.8 K/uL (4.8-10.8)
[2018-05-27 23:01] LABS: ALB/GLOB RATIO 1.4 (1.0-2.1); ALT/SGPT 15 U/L (9-52); AST/SGOT 28 U/L (14-36); BLOOD UREA NITROGEN 12 mg/dL (7-17); CALCIUM 9.3 mg/dl (8.6-10.4); GFR NON-AFRICAN AMERICAN > 60; LIPASE 107 U/L (23-300)
--- NOTE | 2018-05-27 23:06 | C.PDOC ---
History Of Present Illness 47 year old female presents to the ED c/o blood streak vomit. Patient reports that she was eating a bowl of frosted flakes, only eat half and afterwards she had one episode of vomit with blood streaks. Patient was recently admitted to the Hospital for same symptoms. Patient denies fever, chills, headache, rash, CP, SOB, palpitations. Time Seen by Provider: 05/27/18 21:52 Chief Complaint (Nursing): Abdominal Pain History Per: Patient History/Exam Limitations: no limitations Onset/Duration Of Symptoms: Hrs Current Symptoms Are (Timing): Still Present Location Of Pain/Discomfort: Diffuse Quality Of Discomfort: "Pain" Associated Symptoms: Nausea, Vomiting. denies: Diarrhea, Urinary Symptoms Recent travel outside of the [place]: No Additional History Per: Patient Abnormal Vaginal Bleeding: No Past Medical History Reviewed: Historical Data, Nursing Documentation, Vital Signs Vital Signs: Last Vital Signs Temp 97.4 F L 05/27/18 21:44 Pulse 97 H 05/27/18 21:44 Resp 18 05/27/18 21:44 BP 153/88 H 05/27/18 21:44 Pulse Ox 99 05/27/18 21:44 - Medical History PMH: Anemia, Anxiety, Arthritis, Asthma, Back Problems, Bipolar Disorder, Depression, HTN, Malignancy (Colon), Rheumatoid Arthritis, Schizophrenia Denies: Chronic Kidney Disease Surgical History: No Surg Hx - [facility] Procedures CLOSED ENDOSCOPIC BIOPSY OF LARGE INTESTINE (05/23/14) COLONOSCOPY (08/12/14) DX ULTRASOUND-ABDOMEN (05/23/14) EXCISION OF STOMACH, ENDO, DIAGN (01/13/18) INSERTION OF TOTALLY IMPLANTABLE VASC ACCESS DEVIC (05/23/14) LAPAROSCOP LYSIS-PERITONEAL ADHES (05/23/14) LAPAROSCOPIC SIGMOIDECTOMY (05/23/14) OTHER ENDOSCOPY OF SM INTEST (05/23/14) PACKED CELL TRANSFUSION (05/23/14) PERCUTAN NEEDLE BX OF LIVER (05/23/14) REMOVAL OF VAD FROM TRUNK SUBCU/FASCIA, PERC APPROACH (03/16/15) Family History: States: Unknown Family Hx - Social History Hx Tobacco Use: No Hx Alcohol Use: No Hx Substance Use: No - Immunization History Hx Tetanus Toxoid Vaccination: No Hx Influenza Vaccination: Yes Hx Pneumococcal Vaccination: No Review Of Systems Constitutional: Negative for: Fever, Chills Cardiovascular: Negative for: Chest Pain Respiratory: Negative for: Cough, Shortness of Breath Gastrointestinal: Positive for: Nausea, Vomiting. Negative for: Abdominal Pain Skin: Negative for: Rash Neurological: Negative for: Weakness, Numbness Physical Exam - Physical Exam Appears: Non-toxic, No Acute Distress, Other (bizarre affect) Skin: Normal Color, Warm, Dry Head: Atraumatic, Normacephalic Eye(s): bilateral: Normal Inspection Oral Mucosa: Moist Neck: Normal ROM, Supple Chest: Symmetrical Cardiovascular: Rhythm Regular Respiratory: Normal Breath Sounds, No Rales, No Rhonchi, No Wheezing Gastrointestinal/Abdominal: Soft, Tenderness (mild epigastric), No Guarding, No Rebound Extremity: Normal ROM, No Tenderness, No Swelling Neurological/Psych: Oriented x3, Normal Speech, Normal Cognition Gait: Steady ED Course And Treatment - Laboratory Results Result Diagrams: 05/27/18 22:41 05/27/18 22:41 Lab Results: Total Bilirubin 0.3 mg/dL (0.2-1.3) 05/27/18 22:41 AST 28 U/L (14-36) 05/27/18 22:41 ALT 15 U/L (9-52) 05/27/18 22:41 Alkaline Phosphatase 73 U/L (38-126) 05/27/18 22:41 Total Protein 6.8 g/dL (6.3-8.3) 05/27/18 22:41 Albumin 4.0 g/dL (3.5-5.0) 05/27/18 22:41 Globulin 2.8 gm/dL (2.2-3.9) 05/27/18 22:41 Albumin/Globulin Ratio 1.4 (1.0-2.1) 05/27/18 22:41 Lipase 107 U/L (23-300) 05/27/18 22:41 Urine Color Yellow (YELLOW) 05/27/18 22:41 Urine Clarity Clear (Clear) 05/27/18 22:41 Urine pH 6.0 (5.0-8.0) 05/27/18 22:41 Ur Specific [place] 1.006 (1.003-1.030) 05/27/18 22:41 Urine Protein Negative mg/dL (NEGATIVE) 05/27/18 22:41 Urine Glucose (UA) Normal mg/dL (Normal) 05/27/18 22:41 Urine Ketones Negative mg/dL (NEGATIVE) 05/27/18 22:41 Urine Blood Negative (NEGATIVE) 05/27/18 22:41 Urine Nitrate Negative (NEGATIVE) 05/27/18 22:41 Urine Bilirubin Negative (NEGATIVE) 05/27/18 22:41 Urine Urobilinogen Normal mg/dL (0.2-1.0) 05/27/18 22:41 Ur Leukocyte Esterase Neg Mina/uL (Negative) 05/27/18 22:41 Urine WBC (Auto) < 1 /hpf (0-5) 05/27/18 22:41 Urine RBC (Auto) < 1 /hpf (0-3) 05/27/18 22:41 Ur Squamous Epith Cells < 1 /hpf (0-5) 05/27/18 22:41 Urine HCG, Qual Negative (NEGATIVE) 05/27/18 22:41 Urine HCG, Qual Negative (NEGATIVE) 05/27/18 22:41 O2 Sat by Pulse Oximetry: 99 (ra) Pulse Ox Interpretation: Normal Progress Note: Blood work ordered and reviewed. Disposition Counseled Patient/Family Regarding: Diagnosis, Need For Followup, Rx Given - Disposition Referrals: Rosaura Bianchi MD [Staff Provider] - Manolo Sharma MD [Staff Provider] - Disposition: HOME/ ROUTINE Disposition Time: 00:10 Condition: STABLE Additional Instructions: FOLLOW UP WITH DR BIANCHI TOMORROW IN THE OFFICE, AND WITH RECRUITER ACCOUNT MANAGER WITHIN 1 WEEK CONTINUE YOUR PROTONIX DAILY AND USE PEPCID NEEDED RETURN TO ER IF SYMPTOMS WORSEN Prescriptions: Famotidine [Pepcid] 20 mg PO BID PRN #15 tab PRN Reason: abdominal Instructions: Dyspepsia (DC) Forms: [employer] (Mongolian) Print Language: POLISH - Clinical Impression Clinical Impression: Epigastric abdominal pain - Scribe Statement The provider has reviewed the documentation as recorded by the Scribe Jose R Russell All medical record entries made by the Scribe were at my direction and personally dictated by me. I have reviewed the chart and agree that the record accurately reflects my personal performance of the history, physical exam, medical decision making, and the department course for this patient. I have also personally directed, reviewed, and agree with the discharge instructions and di sposition.
[2018-05-28 00:53] VITALS: BP 150/94; PULSE 76; RESP 22; TEMP 98.2
[2018-05-28 00:58] VITALS: O2SAT 99
== END 2018-05-28 00:30 | disposition home or self-care (01) ==
LOC: C.ER 21:41
DX: R10.13 Epigastric pain (principal)
CPT/HCPCS: 80053; 81001; 83690; 84703; 85025; 96374; 96375; 99284; C9113; J1885

== ENCOUNTER 2018-05-30 00:24 | Emergency (ER) | payer MEDICARE ==
[2018-05-30 00:25] VITALS: BMI 37.3
[2018-05-30] MEDS ORDERED: Tdap Vaccine 0.5 ml Vial (10-64 yrs) IM ONE ×2 (01:39→01:49)
[2018-05-30] MEDS ORDERED: Lidocaine 1% PF (5ml) Amp INJ ONE (01:56)
[2018-05-30] MEDS ORDERED: Lidocaine Hydrochloride 5 ML INJ ONE (01:57)
--- NOTE | 2018-05-30 03:48 | C.PDOC ---
History Of Present Illness 47 year old female was stepping into a car when she lost her footing and fell forward and hit her face. Patient sustained a laceration to the bridge of the nose and abrasion to the mid forehead and knees. She admits to being intoxicated. - HPI Time Seen by Provider: 05/30/18 01:10 Chief Complaint (Nursing): Trauma History Per: Patient History/Exam Limitations: no limitations Onset/Duration Of Symptoms: Mins Injury Occurred (Timing): Just Before Arrival Location Of Injury: Right: Knee (Abrasions), Left: Knee, Anterior: Face (Nose laceration, Mid forehead abrasion) Recent travel outside of the [place]: No - Fall Fall:Prior To Injury: Lost Balance Past Medical History Reviewed: Historical Data, Nursing Documentation, Vital Signs Vital Signs: Last Vital Signs Temp 97.1 F L 05/30/18 00:32 Pulse 80 05/30/18 00:32 Resp 20 05/30/18 00:32 BP 123/91 H 05/30/18 00:32 Pulse Ox 100 05/30/18 00:32 - Medical History PMH: Anemia, Anxiety, Arthritis, Asthma, Back Problems, Bipolar Disorder, Depression, HTN, Malignancy (Colon), Rheumatoid Arthritis, Schizophrenia Denies: [facility] Procedures CLOSED ENDOSCOPIC BIOPSY OF LARGE INTESTINE (05/23/14) COLONOSCOPY (08/12/14) DX ULTRASOUND-ABDOMEN (05/23/14) EXCISION OF STOMACH, ENDO, DIAGN (01/13/18) INSERTION OF TOTALLY IMPLANTABLE VASC ACCESS DEVIC (05/23/14) LAPAROSCOP LYSIS-PERITONEAL ADHES (05/23/14) LAPAROSCOPIC SIGMOIDECTOMY (05/23/14) OTHER ENDOSCOPY OF SM INTEST (05/23/14) PACKED CELL TRANSFUSION (05/23/14) PERCUTAN NEEDLE BX OF LIVER (05/23/14) REMOVAL OF VAD FROM TRUNK SUBCU/FASCIA, PERC APPROACH (03/16/15) Family History: States: Unknown Family Hx - Social History Hx Tobacco Use: No Hx Alcohol Use: No Hx Substance Use: No - Immunization History Hx Tetanus Toxoid Vaccination: No Hx Influenza Vaccination: Yes Hx Pneumococcal Vaccination: No Review Of Systems Musculoskeletal: Negative for: Neck Pain, Back Pain Skin: Positive for: Other (Laceration, Abrasions) Neurological: Negative for: Weakness, Numbness, Dizziness Physical Exam - Physical Exam Appears: Well, Non-toxic, No Acute Distress Skin: Warm, No Rash Head: Normacephalic, Abrasion (Mid forehead) Eye(s): bilateral: Normal Inspection, PERRL, EOMI Nose: Other (2cm laceration to the bridge) Oral Mucosa: Moist Neck: Normal ROM, No Midline Cervical Tenderness, No Paracervical Tenderness, Supple Extremity: Normal ROM (x4), Other (Abrasions to bilateral knees) Neurological/Psych: Oriented x3, Normal Speech, Normal Cranial Nerves (Grossly intact), Normal Motor, Normal Sensation, Other (Intoxicated but follows commands appropriately) Gait: Steady ED Course And Treatment O2 Sat by Pulse Oximetry: 100 (Room air) Pulse Ox Interpretation: Normal - CT Scan/US CT Head Other Rad Studies (CT/US): Read By Radiologist, Radiology Report Reviewed CT/US Interpretation: CT SCAN OF THE BRAIN WITHOUT IV CONTRAST. CLINICAL INDICATION: PATIENT STATED SHE WAS AT A BAR AND FELL LAC ACROSS BRIDGE OF NOSE WITH STITCHES DOES NOT REMEMBER LOC (Hx). TECHNIQUE: Axial and reformatted sagittal and coronal images of the brain obtained without IV contrast administration. Normal size of the ventricles and extra-axial spaces for the patient's age. Normal white matter tracts of the supratentorial brain. Normal basal ganglia and thalami. Normal brainstem. Normal cerebellum. There is no demonstrated extra-axial, intraparenchymal, or intraventricular hemorrhage. There are no findings of an acute ischemic infarction. Normal calvarium. Acute displaced fractures of the left nasal bone. Normal visualized paranasal sinuses. IMPRESSION: Normal unenhanced CT scan of the brain. Acute displaced fractures of the left nasal bone. CT Orbits/Facials Other Rad Studies (CT/US): Read By Radiologist, Radiology Report Reviewed CT/US Interpretation: CT scan of the facial bones. Indication: PATIENT STATED WAS AT A BAR AND FELL LACERATION WITH STITCHES OVER BRIDGE OF NOSE (Hx). Technique: Axial CT scan images without contrast. Reformatted coronal and sagittal images. Findings: Acute displaced fractures of the nasal bones. Overlying soft tissue edema and swelling. Mild chronic mucosal inflammatory changes of the maxillary sinuses. Normal bilateral orbital contents. Normal bilateral medial and inferior orbital chen. Normal bilateral maxillary bones. Normal bilateral frontozygomatic arches. Normal bilateral zygomatic temporal arches. Normal visualized frontal, ethmoidal and sphenoid sinuses. Impression: Acute displaced fractures of the nasal bones. Overlying soft tissue edema and swelling. Mild chronic mucosal inflammatory changes of the maxillary sinuses. Laceration - Laceration Repair Nose Wound Length (In cm): 2 Description Of Wound: Linear Wound Cleansed With: Sterile Saline Wound Closure: Suture (Six) Suture Technique And Material Used: Nylon (5-0) Wound Complexity: Simple Medical Decision Making Medical Decision Making: Patient advised to return in 1 week for suture removal. Disposition Counseled Patient/Family Regarding: Diagnosis, Need For Followup - Disposition Disposition: HOME/ ROUTINE Disposition Time: 05:55 Condition: STABLE Instructions: Nose Fracture, Laceration Repair With Stitches (DC), Head Injury (ED) Forms: [id number] (Israeli), General Discharge Instructions - Clinical Impression Clinical Impression: Accidental fall, Nasal bone fractures, Laceration of nose without complication - PA / [employer] / Resident Statement MD/DO has reviewed & agrees with the documentation as recorded. - Scribe Statement The provider has reviewed the documentation as recorded by the Scribirasema Arita All medical record entries made by the Scribe were at my direction and personally dictated by me. I have reviewed the chart and agree that the record accurately reflects my personal performance of the history, physical exam, medical decision making, and the department course for this patient. I have also personally directed, reviewed, and agree with the discharge instructions and disposition.
[2018-05-30 05:41] VITALS: BP 126/88; PULSE 74; RESP 16; TEMP 98
[2018-05-30 05:56] VITALS: O2SAT 100
--- NOTE | 2018-05-30 08:19 | CT ---
Date of service: 05/30/2018 PROCEDURE: CT HEAD WITHOUT CONTRAST. HISTORY: Trauma COMPARISON: 04/15/2018. TECHNIQUE: Axial computed tomography images were obtained through the head/brain without intravenous contrast. Radiation dose: Total exam DLP = 986.27 mGy-cm. This CT exam was performed using one or more of the following dose reduction techniques: Automated exposure control, adjustment of the mA and/or kV according to patient size, and/or use of iterative reconstruction technique. FINDINGS: HEMORRHAGE: No intracranial hemorrhage. BRAIN: Waldrop-white matter differentiation is preserved. There is no mass, mass effect or abnormal extra-axial fluid collection. There is no territorial infarction. The midline sagittal structures are normal. VENTRICLES: The ventricles are normal in size, shape and configuration. CALVARIUM: There is no calvarial fracture or extracranial soft tissue swelling. PARANASAL SINUSES: There is minimal mucosal thickening in the right maxillary sinus. The remaining included paranasal sinuses are clear MASTOID AIR CELLS: Predominantly clear. OTHER FINDINGS: There is an acute displaced left nasal bone fracture and mildly displaced right anterior nasal bone fracture with nasal soft tissue swelling IMPRESSION: No acute intracranial abnormality. Bilateral displaced nasal bone fractures, worse on the left. A preliminary report was provided by [facility].
--- NOTE | 2018-05-30 08:28 | CT ---
Date of service: 05/30/2018 PROCEDURE: CT MAXILLOFACIAL BONES WITHOUT CONTRAST HISTORY: trauma COMPARISON: None available. TECHNIQUE: Contiguous axial CT images of the maxillofacial bones were obtained. Coronal and sagittal reformats were generated. Radiation dose: Total exam DLP = 719.86 mGy-cm. This CT exam was performed using one or more of the following dose reduction techniques: Automated exposure control, adjustment of the mA and/or kV according to patient size, and/or use of iterative reconstruction technique. FINDINGS: NASAL BONES: There are bilateral acute comminuted fractures, displaced on the left. There is mild nasal soft tissue swelling. ORBITS: Unremarkable. PARANASAL SINUSES/ MASTOIDS: Mild polypoid mucosal thickening in the right maxillary sinus and minimal mucosal thickening in the left maxillary sinus. The remaining included paranasal sinuses are clear. MAXILLA: No acute maxillofacial fracture. MANDIBLE/ TEMPOROMANDIBULAR JOINTS: No acute fracture or dislocation. SKULL BASE: Unremarkable. TEMPORAL BONES: Middle ears and mastoid grossly unremarkable. OTHER FINDINGS: None. IMPRESSION: Acute comminuted bilateral nasal bone fractures, displaced on the left with associated nasal soft tissue swelling. No acute orbital or maxillofacial fracture. A preliminary report was provided by [facility].
== END 2018-05-30 06:11 | disposition home or self-care (01) ==
LOC: C.ER 00:24
DX: S01.21XA Laceration without foreign body of nose, initial encounter (principal); S02.2XXA Fracture of nasal bones, initial encounter for closed fracture; W01.0XXA Fall on same level from slipping, tripping and stumbling without subsequent striking against object, initial encounter; Z23 Encounter for immunization

== ENCOUNTER 2018-06-02 11:15 | Observation (INO) | payer MEDICARE ==
[2018-06-02 11:15] VITALS: BMI 37.3
--- NOTE | 2018-06-02 13:59 | C.PDOC ---
History Of Present Illness 47 year old female with pmhx of stage 4 colon cancer(mets to liver and lung), depression, anxiety presents to ED at the request of her oncologist, Dr. Heath for further eval of abnormal lab values. Patient reports complaints of nausea x2 days and 3 episodes of post prandial hematemesis this morning with complaints of severe epigastric abdominal pain. Patient reports she presented to her oncologist this [id number] for chemo treatment, and was told to come in to the ED for abnormal lab results and further eval of hematemesis. Patient had recent ED visit for similar complaints, and prior visit 1 yr ago w/ EGD; reports no abnorm al results. Patient denies fatigue, weakness, palpitations, chest pain, diarrhea, constipation(last BM yesterday). Time Seen by Provider: 06/02/18 13:18 Chief Complaint (Nursing): Abdominal Pain History Per: Patient History/Exam Limitations: no limitations Onset/Duration Of Symptoms: Sudden Onset Current Symptoms Are (Timing): Still Present Pain Scale Rating Of: 10 Location Of Pain/Discomfort: RLQ, Epigastric, LLQ Radiation Of Pain To:: Flank Quality Of Discomfort: Sharp Past Medical History Reviewed: Historical Data, Nursing Documentation, Vital Signs Vital Signs: Last Vital Signs Temp 97.7 F 06/02/18 11:39 Pulse 90 06/02/18 11:39 Resp 18 06/02/18 11:39 BP 152/101 H 06/02/18 11:39 Pulse Ox 100 06/02/18 11:39 - Medical History PMH: Anemia, Anxiety, Arthritis, Asthma, Back Problems, Bipolar Disorder, Depression, HTN, Malignancy (Colon), Rheumatoid Arthritis, Schizophrenia Denies: Chronic Kidney Disease - [facility] Procedures CLOSED ENDOSCOPIC BIOPSY OF LARGE INTESTINE (05/23/14) COLONOSCOPY (08/12/14) DX ULTRASOUND-ABDOMEN (05/23/14) EXCISION OF STOMACH, ENDO, DIAGN (01/13/18) INSERTION OF TOTALLY IMPLANTABLE VASC ACCESS DEVIC (05/23/14) LAPAROSCOP LYSIS-PERITONEAL ADHES (05/23/14) LAPAROSCOPIC SIGMOIDECTOMY (05/23/14) OTHER ENDOSCOPY OF SM INTEST (05/23/14) PACKED CELL TRANSFUSION (05/23/14) PERCUTAN NEEDLE BX OF LIVER (05/23/14) REMOVAL OF VAD FROM TRUNK SUBCU/FASCIA, PERC APPROACH (03/16/15) Family History: States: Unknown Family Hx - Social History Hx Tobacco Use: No Hx Alcohol Use: No Hx Substance Use: No - Immunization History Hx Tetanus Toxoid Vaccination: No Hx Influenza Vaccination: Yes Hx Pneumococcal Vaccination: No Review Of Systems Constitutional: Negative for: Fever, Weakness Cardiovascular: Negative for: Chest Pain, Palpitations Respiratory: Negative for: Cough, Shortness of Breath Gastrointestinal: Positive for: Nausea, Vomiting, Abdominal Pain (epigastric, RLQ/LLQ), Hematemesis. Negative for: Diarrhea, Constipation Genitourinary: Negative for: Dysuria Skin: Positive for: Lesions (face) Psych: Positive for: Anxiety, Depression Physical Exam - Physical Exam Appears: Non-toxic, No Acute Distress Skin: Other (laceration to nasal bridge) Head: Laceration (nasal bridge) Eye(s): bilateral: Normal Inspection, EOMI Oral Mucosa: Moist Chest: Other (right chest port) Cardiovascular: Rhythm Regular Respiratory: Normal Breath Sounds, No Rales, No Rhonchi Gastrointestinal/Abdominal: Bowel Sounds, Soft, Tenderness (epigastric, RLQ/LLQ), No Mass, No Distention Extremity: No Pedal Edema, No Calf Tenderness Neurological/Psych: Oriented x3 ED Course And Treatment - Laboratory Results Result Diagrams: 06/02/18 14:11 06/02/18 14:11 Lab Interpretation: Abnormal (FOBT positive) O2 Sat by Pulse Oximetry: 100 Medical Decision Making Medical Decision Makin47 year old female w/ pmhx of stage 4 colon cancer, anxiety, depression admitted for evaluation of nausea, hematemesis, abnormal labs per Heme/Onc. Labs ordered: CBC CMP PT/PTT Type and Screen UA FOBT + Given Zofran IV, Protonix IV, NS @150 w/ moderate improvement in nausea. No active vomiting in ED. Admit for further workup of GI hemorrhage Disposition Discussed With : Rosaura Harris Doctor Will See Patient In The: ED Counseled Patient/Family Regarding: Studies Performed - Disposition Disposition: HOSPITALIZED Disposition Time: 15:08 Condition: FAIR Forms: [facility] (Hebrew) - Clinical Impression Clinical Impression: Nausea, Vomiting, Gastrointestinal hemorrhage
[2018-06-02 14:20] LABS: BASO % 0.3 % (0.0-2.0); LYMPH # 0.8 K/uL (1.0-4.3); MONO # 0.2 K/uL (0.0-0.8); NEUT # 2.3 K/uL (1.8-7.0); WHITE BLOOD COUNT 3.3 K/uL (4.8-10.8)
[2018-06-02 14:28] LABS: SQUAMOUS EPITHIAL 10 /hpf (0-5); URINE BACTERIA RARE (<OCC); URINE BILIRUBIN NEGATIVE (NEGATIVE); URINE BLOOD NEGATIVE (NEGATIVE); URINE CLARITY Hazy (Clear); URINE COLOR Yellow (YELLOW); URINE GLUCOSE (UA) NORMAL (Normal); URINE LEUKOCYTE ESTERASE NEG Leu/uL (Negative); URINE PROTEIN NEGATIVE (NEGATIVE); URINE UROBILINOGEN NORMAL mg/dL (0.2-1.0)
[2018-06-02 14:29] LABS: EOS % 0.3 % (0.0-4.0); HEMOGLOBIN 10.2 g/dL (11.0-16.0); LYMPH % 23.6 % (20.0-40.0); MEAN CELL VOLUME 81.5 fL (81.0-99.0); MEAN CORPUSCULAR HEMOGLOBIN 26.9 pg (27.0-31.0); MEAN CORPUSCULAR HGB CONC 33.1 g/dL (33.0-37.0); MEAN PLATELET VOLUME 8.5 fL (7.2-11.7); MONO % 5.5 % (0.0-10.0); NEUT % 70.3 % (50.0-75.0); NRBC % 0.2 % (0.0-2.0); RBC 3.77 Mil/uL (3.80-5.20)
[2018-06-02 14:33] LABS: INR 1.2; PROTHROMBIN TIME 12.6 SECONDS (9.7-12.2)
[2018-06-02 14:39] LABS: ALB/GLOB RATIO 1.5 (1.0-2.1); ALBUMIN 3.8 g/dL (3.5-5.0); ALT/SGPT 16 U/L (9-52); AST/SGOT 30 U/L (14-36); BLOOD UREA NITROGEN 9 mg/dL (7-17); CALCIUM 9.1 mg/dl (8.6-10.4); GFR NON-AFRICAN AMERICAN > 60
[2018-06-02] MEDS: Sodium Chloride 0.9% 1,000 ML IV SCH ×2 (15:00→21:37)
--- NOTE | 2018-06-02 16:22 | CP.PCM.HP ---
Past Patient History - Infectious Disease Hx of Infectious Diseases: None - Past Medical History & Family History Past Medical History?: Yes - Past Social History Smoking Status: Never Smoked - CARDIAC Hx Hypertension: Yes - PULMONARY Hx Asthma: Yes - NEUROLOGICAL Hx Neurological Disorder: No - HEENT Hx HEENT Problems: No - RENAL Hx Chronic Kidney Disease: No - ENDOCRINE/METABOLIC Hx Endocrine Disorders: No - HEMATOLOGICAL/ONCOLOGICAL Hx Anemia: Yes - INTEGUMENTARY Hx Dermatological Problems: No - MUSCULOSKELETAL/RHEUMATOLOGICAL Hx Arthritis: Yes Hx Rheumatoid Arthritis: Yes - GASTROINTESTINAL Hx Gastrointestinal Disorders: Yes Hx Bowel Surgery: Yes Other/Comment: COLON CANCER STAGE 4 WITH CHEMOTHERAPY. R side port a cath - GENITOURINARY/GYNECOLOGICAL Hx Genitourinary Disorders: No - PSYCHIATRIC Hx Anxiety: Yes Hx Bipolar Disorder: Yes Hx Depression: Yes Hx Schizophrenia: Yes Hx Substance Use: No - SURGICAL HISTORY Hx Surgeries: Yes (SEE COMMENT) Hx Orthopedic Surgery: Yes (left knee TKR 03/2017) Hx Tubal Ligation: Yes (2005) Hx Vascular Access Device: Yes (RIGHT SUBCLAVIAN 2014) Other/Comment: colon cancer surgery april 2014 to remove tumor, rt side subclavian Port - ANESTHESIA Hx Anesthesia: Yes Hx Anesthesia Reactions: No Hx Malignant Hyperthermia: No Meds Allergies/Adverse Reactions: Allergies Allergy/AdvReac Type Severity Reaction Status Date / Time No Known Allergies Allergy Verified 06/02/18 11:42 Physical Exam - Constitutional Appears: Well - Head Exam Head Exam: ATRAUMATIC, NORMAL INSPECTION, NORMOCEPHALIC - Eye Exam Eye Exam: EOMI, Normal appearance, PERRL Pupil Exam: NORMAL ACCOMODATION, PERRL - ENT Exam ENT Exam: Mucous Membranes Moist, Normal Exam - Neck Exam Neck exam: Positive for: Normal Inspection - Respiratory Exam Respiratory Exam: Decreased Breath Sounds - Cardiovascular Exam Cardiovascular Exam: REGULAR RHYTHM, +S1, +S2 - GI/Abdominal Exam GI & Abdominal Exam: Diminished Bowel Sounds, Soft - Rectal Exam Rectal Exam: Deferred - Neurological Exam Neurological exam: Oriented x3 Results - Vital Signs Recent Vital Signs: Last Vital Signs Temp 97.6 F 06/02/18 14:57 Pulse 89 06/02/18 14:57 Resp 18 06/02/18 14:57 BP 147/91 H 06/02/18 14:57 Pulse Ox 100 06/02/18 15:17 - Labs Result Diagrams: 06/02/18 14:11 06/02/18 14:11 Labs: Laboratory Results - last 24 hr 06/02/18 06/02/18 06/02/18 14:11 14:11 14:11 WBC 3.3 L RBC 3.77 L Hgb 10.2 L Hct 30.8 L MCV 81.5 MCH 26.9 L MCHC 33.1 RDW 19.0 H Plt Count 118 L D MPV 8.5 Neut % (Auto) 70.3 Lymph % (Auto) 23.6 Wilkinson % (Auto) 5.5 Eos % (Auto) 0.3 Baso % (Auto) 0.3 Neut # (Auto) 2.3 Lymph # (Auto) 0.8 L Wilkinson # (Auto) 0.2 Eos # (Auto) 0.0 Baso # (Auto) 0.0 Differential Comment PT 12.6 H INR 1.2 APTT 58 H Sodium 138 Potassium 3.7 Chloride 105 Carbon Dioxide 26 Anion Gap 10 BUN 9 Creatinine 0.8 Est GFR ( Amer) > 60 Est GFR (Non-Af Amer) > 60 Random Glucose 85 Calcium 9.1 Phosphorus 4.5 Magnesium 1.8 Total Bilirubin 0.5 AST 30 ALT 16 Alkaline Phosphatase 91 Total Protein 6.4 Albumin 3.8 Globulin 2.6 Albumin/Globulin Ratio 1.5 Urine Color Urine Clarity Urine pH Ur Specific [place] Urine Protein Urine Glucose (UA) Urine Ketones Urine Blood Urine Nitrate Urine Bilirubin Urine Urobilinogen Ur Leukocyte Esterase Urine WBC (Auto) Urine RBC (Auto) Ur Squamous Epith Cells Urine Bacteria Blood Type Antibody Screen 06/02/18 06/02/18 14:11 14:14 WBC RBC Hgb Hct MCV MCH MCHC RDW Plt Count MPV Neut % (Auto) Lymph % (Auto) Wilkinson % (Auto) Eos % (Auto) Baso % (Auto) Neut # (Auto) Lymph # (Auto) Wilkinson # (Auto) Eos # (Auto) Baso # (Auto) Differential Comment PT INR APTT Sodium Potassium Chloride Carbon Dioxide Anion Gap BUN Creatinine Est GFR ( Amer) Est GFR (Non-Af Amer) Random Glucose Calcium Phosphorus Magnesium Total Bilirubin AST ALT Alkaline Phosphatase Total Protein Albumin Globulin Albumin/Globulin Ratio Urine Color Yellow Urine Clarity Hazy Urine pH 6.0 Ur Specific [place] 1.010 Urine Protein Negative Urine Glucose (UA) Normal Urine Ketones Negative Urine Blood Negative Urine Nitrate Negative Urine Bilirubin Negative Urine Urobilinogen Normal Ur Leukocyte Esterase Neg Urine WBC (Auto) 2 Urine RBC (Auto) 1 Ur Squamous Epith Cells 10 H Urine Bacteria Rare Blood Type A POSITIVE Antibody Screen Negative
[2018-06-02] MEDS: Morphine 4 MG/ML VIAL IV PRN (18:50)
[2018-06-03] MEDS: Albuterol HFA 90 mcg/actuation (8 g) IH SCH ×3 (01:20→20:24)
[2018-06-03] MEDS: Morphine 4 MG/ML VIAL IV PRN ×4 (01:31→20:27)
[2018-06-03] MEDS: Sodium Chloride 0.9% 1,000 ML IV SCH ×5 (04:53→23:35)
[2018-06-03] MEDS: Pantoprazole 40 mg EC Tab PO SCH (10:19)
[2018-06-03 12:00] LABS: BASO % 0.2 % (0.0-2.0); EOS % 0.8 % (0.0-4.0); HEMOGLOBIN 9.1 g/dL (11.0-16.0); LYMPH # 0.7 K/uL (1.0-4.3); MEAN CELL VOLUME 82.7 fL (81.0-99.0); MEAN CORPUSCULAR HEMOGLOBIN 27.2 pg (27.0-31.0); MEAN CORPUSCULAR HGB CONC 32.9 g/dL (33.0-37.0); MONO # 0.2 K/uL (0.0-0.8); MONO % 6.6 % (0.0-10.0); NEUT # 2.4 K/uL (1.8-7.0); NEUT % 71.4 % (50.0-75.0); NRBC % 0.1 % (0.0-2.0); RBC 3.36 Mil/uL (3.80-5.20); RED CELL DISTRIBUTION WIDTH 19.4 % (11.5-14.5); WHITE BLOOD COUNT 3.4 K/uL (4.8-10.8)
[2018-06-03] MEDS: Bacitracin Ointment 30 GM TUBE TOP SCH (17:44)
--- NOTE | 2018-06-03 18:53 | CP.PCM.PN ---
Subjective - Date & Time of Evaluation Date of Evaluation: 06/03/18 - Subjective Subjective: patient examined today no fever no chills no diarrhea no shortness of breath Objective - Vital Signs/Intake and Output Vital Signs (last 24 hours): Temp Pulse Resp BP Pulse Ox 98.7 F 90 20 153/93 H 95 06/03/18 15:54 06/03/18 15:54 06/03/18 15:54 06/03/18 15:54 06/03/18 15:54 - Medications Medications: Current Medications Albuterol (Ventolin Hfa 90 Mcg/Actuation (8 G)) 1 puff IH RQ4 [facility] Last Admin: 06/03/18 04:03 Dose: Not Given Bacitracin (Bacitracin) 0 gm TOP BID [facility] Last Admin: 06/03/18 17:44 Dose: 1 applic Clonazepam (Klonopin) 2 mg PO TID [facility] Last Admin: 06/03/18 18:02 Dose: 2 mg Duloxetine HCl (Cymbalta) 30 mg PO DAILY [facility] Last Admin: 06/03/18 10:19 Dose: 30 mg Escitalopram Oxalate (Lexapro) 20 mg PO DAILY [facility] Last Admin: 06/03/18 10:19 Dose: 20 mg Sodium Chloride (Sodium Chloride 0.9%) 1,000 mls @ 150 mls/hr IV .Q6H40M [facility] Last Admin: 06/03/18 10:20 Dose: Not Given Morphine Sulfate (Morphine) 4 mg IV Q6 PRN PRN Reason: Pain, moderate (4-7) Last Admin: 06/03/18 14:24 Dose: 4 mg Pantoprazole Sodium (Protonix Ec Tab) 40 mg PO DAILY [facility] Last Admin: 06/03/18 10:19 Dose: 40 mg Risperidone (Risperdal Tab) 2 mg PO BID [facility] Last Admin: 06/03/18 17:41 Dose: 2 mg Rosuvastatin Calcium (Crestor) 10 mg PO HS [facility] Last Admin: 06/02/18 21:35 Dose: 10 mg Tolterodine Tartrate (Detrol La) 4 mg PO DAILY [facility] Zolpidem Tartrate (Ambien) 5 mg PO HS [facility] Last Admin: 06/02/18 21:35 Dose: 5 mg - Labs Labs: 06/03/18 11:51 06/02/18 14:11 PT 12.6 SECONDS (9.7-12.2) H 06/02/18 14:11 INR 1.2 06/02/18 14:11 APTT 58 SECONDS (21-34) H 06/02/18 14:11 - Constitutional Appears: Well - Head Exam Head Exam: ATRAUMATIC, NORMAL INSPECTION, NORMOCEPHALIC - Eye Exam Eye Exam: EOMI, Normal appearance, PERRL Pupil Exam: NORMAL ACCOMODATION, PERRL - ENT Exam ENT Exam: Mucous Membranes Moist, Normal Exam - Neck Exam Neck Exam: Full ROM, Normal Inspection. absent: Lymphadenopathy - Respiratory Exam Respiratory Exam: Decreased Breath Sounds - Cardiovascular Exam Cardiovascular Exam: REGULAR RHYTHM, +S1, +S2 - GI/Abdominal Exam GI & Abdominal Exam: Diminished Bowel Sounds - Rectal Exam Rectal Exam: Deferred - Neurological Exam Neurological Exam: Oriented x3 Assessment and Plan - Assessment and Plan (Free Text) Plan: vitals reivewed labs reviewed medications reviewed ambien bacitracin crestor cymbalta detrol la klonopin lexapro morphine protonix ec tab risperdal tab sodium chloride ventolin hfa
[2018-06-04] MEDS: Albuterol HFA 90 mcg/actuation (8 g) IH SCH ×5 (00:22→19:22)
[2018-06-04] MEDS: Sodium Chloride 0.9% 1,000 ML IV SCH ×2 (02:31→12:56)
[2018-06-04] MEDS: Morphine 4 MG/ML VIAL IV PRN ×4 (02:33→22:28)
[2018-06-04] MEDS: Tolterodine 4 mg ER Cap PO SCH (09:16)
[2018-06-04] MEDS: Pantoprazole 40 mg EC Tab PO SCH (09:16)
[2018-06-04] MEDS: Bacitracin Ointment 30 GM TUBE TOP SCH ×2 (09:27→17:19)
--- NOTE | 2018-06-04 19:39 | CP.PCM.PN ---
Subjective - Date & Time of Evaluation Date of Evaluation: 06/04/18 - Subjective Subjective: patient seen today no nausea no vomiting no diarrhea no fever no shortness of breath no dizziness Objective - Vital Signs/Intake and Output Vital Signs (last 24 hours): Temp Pulse Resp BP Pulse Ox 97.8 F 102 H 20 165/97 H 97 06/04/18 16:20 06/04/18 16:20 06/04/18 16:20 06/04/18 16:20 06/04/18 17:59 Intake and Output: 06/04/18 06/05/18 18:59 06:59 Intake Total 1100 Balance 1100 - Medications Medications: Current Medications Albuterol (Ventolin Hfa 90 Mcg/Actuation (8 G)) 1 puff IH RQ4 [facility] Last Admin: 06/04/18 19:22 Dose: 1 puff Amlodipine Besylate (Norvasc) 10 mg PO DAILY [facility] Last Admin: 06/04/18 16:52 Dose: 10 mg Bacitracin (Bacitracin) 0 gm TOP BID [facility] Last Admin: 06/04/18 17:19 Dose: 1 applic Clonazepam (Klonopin) 2 mg PO TID [facility] Last Admin: 06/04/18 17:17 Dose: 2 mg Duloxetine HCl (Cymbalta) 30 mg PO DAILY [facility] Last Admin: 06/04/18 09:16 Dose: 30 mg Escitalopram Oxalate (Lexapro) 20 mg PO DAILY [facility] Last Admin: 06/04/18 09:17 Dose: 20 mg Morphine Sulfate (Morphine) 4 mg IV Q6 PRN PRN Reason: Pain, moderate (4-7) Last Admin: 06/04/18 15:24 Dose: 4 mg Pantoprazole Sodium (Protonix Ec Tab) 40 mg PO DAILY [facility] Last Admin: 06/04/18 09:16 Dose: 40 mg Risperidone (Risperdal Tab) 2 mg PO BID [facility] Last Admin: 06/04/18 17:17 Dose: 2 mg Rosuvastatin Calcium (Crestor) 10 mg PO HS [facility] Last Admin: 06/03/18 21:38 Dose: 10 mg Tolterodine Tartrate (Detrol La) 4 mg PO DAILY [facility] Last Admin: 06/04/18 09:16 Dose: 4 mg Zolpidem Tartrate (Ambien) 5 mg PO HS [facility] Last Admin: 06/03/18 21:38 Dose: 5 mg - Labs Labs: 06/03/18 11:51 06/02/18 14:11 PT 12.6 SECONDS (9.7-12.2) H 06/02/18 14:11 INR 1.2 06/02/18 14:11 APTT 58 SECONDS (21-34) H 06/02/18 14:11 - Constitutional Appears: Well - Head Exam Head Exam: ATRAUMATIC, NORMAL INSPECTION, NORMOCEPHALIC - Eye Exam Eye Exam: EOMI, Normal appearance, PERRL Pupil Exam: NORMAL ACCOMODATION, PERRL - ENT Exam ENT Exam: Mucous Membranes Moist, Normal Exam - Neck Exam Neck Exam: Full ROM, Normal Inspection. absent: Lymphadenopathy - Respiratory Exam Respiratory Exam: Decreased Breath Sounds - Cardiovascular Exam Cardiovascular Exam: REGULAR RHYTHM, +S1, +S2 - GI/Abdominal Exam GI & Abdominal Exam: Soft, Diminished Bowel Sounds - Rectal Exam Rectal Exam: Deferred - Neurological Exam Neurological Exam: Oriented x3 Assessment and Plan - Assessment and Plan (Free Text) Plan: labs reviewed, vitals reveiewed medications reviewed
[2018-06-05] MEDS: Albuterol HFA 90 mcg/actuation (8 g) IH SCH ×6 (00:50→20:34)
[2018-06-05] MEDS: Morphine 4 MG/ML VIAL IV PRN ×3 (04:57→17:29)
[2018-06-05] MEDS: Tolterodine 4 mg ER Cap PO SCH (09:47)
[2018-06-05] MEDS: Pantoprazole 40 mg EC Tab PO SCH (09:47)
[2018-06-05] MEDS: Bacitracin Ointment 30 GM TUBE TOP SCH ×2 (09:54→18:00)
[2018-06-05 14:56] LABS: BASO % 0.5 % (0.0-2.0); EOS # 0.1 K/uL (0.0-0.7); EOS % 1.6 % (0.0-4.0); HEMOGLOBIN 9.5 g/dL (11.0-16.0); LYMPH # 0.9 K/uL (1.0-4.3); LYMPH % 25.1 % (20.0-40.0); MEAN CELL VOLUME 82.5 fL (81.0-99.0); MEAN CORPUSCULAR HGB CONC 32.7 g/dL (33.0-37.0); MEAN PLATELET VOLUME 7.5 fL (7.2-11.7); MONO # 0.3 K/uL (0.0-0.8); NEUT # 2.2 K/uL (1.8-7.0); NEUT % 62.8 % (50.0-75.0); NRBC % 0.2 % (0.0-2.0); RBC 3.51 Mil/uL (3.80-5.20); RED CELL DISTRIBUTION WIDTH 19.6 % (11.5-14.5); WHITE BLOOD COUNT 3.4 K/uL (4.8-10.8)
--- NOTE | 2018-06-05 14:56 | CP.PCM.PN ---
Subjective - Date & Time of Evaluation Date of Evaluation: 06/05/18 Objective - Vital Signs/Intake and Output Vital Signs (last 24 hours): Temp Pulse Resp BP Pulse Ox 97.7 F 87 20 147/92 H 95 06/05/18 07:00 06/05/18 07:00 06/05/18 07:00 06/05/18 07:00 06/05/18 12:01 Intake and Output: 06/05/18 06/05/18 06:59 18:59 Intake Total 590 500 Balance 590 500 - Medications Medications: Current Medications Albuterol (Ventolin Hfa 90 Mcg/Actuation (8 G)) 1 puff IH RQ4 [facility] Last Admin: 06/05/18 11:49 Dose: Not Given Amlodipine Besylate (Norvasc) 10 mg PO DAILY [facility] Last Admin: 06/05/18 11:04 Dose: 10 mg Bacitracin (Bacitracin) 0 gm TOP BID [facility] Last Admin: 06/05/18 09:54 Dose: 1 applic Clonazepam (Klonopin) 2 mg PO TID [facility] Last Admin: 06/05/18 13:35 Dose: 2 mg Duloxetine HCl (Cymbalta) 30 mg PO DAILY [facility] Last Admin: 06/05/18 09:47 Dose: 30 mg Escitalopram Oxalate (Lexapro) 20 mg PO DAILY [facility] Last Admin: 06/05/18 09:49 Dose: 20 mg Lactulose (Enulose) 20 gm PO HS PRN PRN Reason: Constipation Morphine Sulfate (Morphine) 4 mg IV Q6 PRN PRN Reason: Pain, moderate (4-7) Last Admin: 06/05/18 11:04 Dose: 4 mg Pantoprazole Sodium (Protonix Ec Tab) 40 mg PO DAILY [facility] Last Admin: 06/05/18 09:47 Dose: 40 mg Polyethylene Glycol (Miralax) 17 gm PO TID [facility] Risperidone (Risperdal Tab) 2 mg PO BID [facility] Last Admin: 06/05/18 09:47 Dose: 2 mg Rosuvastatin Calcium (Crestor) 10 mg PO HS [facility] Last Admin: 06/04/18 21:11 Dose: 10 mg Tolterodine Tartrate (Detrol La) 4 mg PO DAILY [facility] Last Admin: 06/05/18 09:47 Dose: 4 mg Zolpidem Tartrate (Ambien) 5 mg PO HS [facility] Last Admin: 06/04/18 21:11 Dose: 5 mg - Labs Labs: 06/03/18 11:51 06/02/18 14:11 PT 12.6 SECONDS (9.7-12.2) H 06/02/18 14:11 INR 1.2 06/02/18 14:11 APTT 58 SECONDS (21-34) H 06/02/18 14:11 - Constitutional Appears: Well - Head Exam Head Exam: ATRAUMATIC, NORMAL INSPECTION, NORMOCEPHALIC - Eye Exam Eye Exam: EOMI, Normal appearance, PERRL Pupil Exam: NORMAL ACCOMODATION, PERRL - ENT Exam ENT Exam: Mucous Membranes Moist, Normal Exam - Neck Exam Neck Exam: Full ROM, Normal Inspection. absent: Lymphadenopathy - Respiratory Exam Respiratory Exam: Decreased Breath Sounds - Cardiovascular Exam Cardiovascular Exam: REGULAR RHYTHM, +S1, +S2 - GI/Abdominal Exam GI & Abdominal Exam: Soft, Diminished Bowel Sounds - Rectal Exam Rectal Exam: Deferred - Neurological Exam Neurological Exam: Oriented x3 Assessment and Plan - Assessment and Plan (Free Text) Plan: medications reviewed labs reviewed vitals reviewed
[2018-06-05 15:17] LABS: ALB/GLOB RATIO 1.6 (1.0-2.1); ALBUMIN 3.7 g/dL (3.5-5.0); ALT/SGPT 9 U/L (9-52); AST/SGOT 20 U/L (14-36); BLOOD UREA NITROGEN 8 mg/dL (7-17); CALCIUM 8.6 mg/dl (8.6-10.4); GFR NON-AFRICAN AMERICAN > 60
[2018-06-05 15:35] LABS: INR 1.3; PROTHROMBIN TIME 13.8 SECONDS (9.7-12.2)
[2018-06-05] MEDS: POLYETHYLENE GLYCOL 3350 17 GM/Dose PACKET PO SCH (17:36)
[2018-06-06] MEDS: Albuterol HFA 90 mcg/actuation (8 g) IH SCH ×5 (00:19→16:04)
[2018-06-06] MEDS: Morphine 4 MG/ML VIAL IV PRN ×2 (01:00→05:55)
[2018-06-06] MEDS ORDERED: Morphine 4 MG/ML VIAL IV PRN (08:15)
[2018-06-06] MEDS: Pantoprazole 40 mg EC Tab PO SCH (09:13)
[2018-06-06] MEDS: Tolterodine 4 mg ER Cap PO SCH (09:13)
[2018-06-06] MEDS: POLYETHYLENE GLYCOL 3350 17 GM/Dose PACKET PO SCH ×3 (09:14→14:08)
[2018-06-06] MEDS: Bacitracin Ointment 30 GM TUBE TOP SCH (09:16)
--- NOTE | 2018-06-06 09:43 | CP.PCM.CON ---
<Gregory Ledbetter - Last Filed: 06/06/18 10:59> History of Present Illness - History of Present Illness History of Present Illness: GI Fellow PGY4, Consult note. Kenya Hsieh is a 47yo WF with hx of metastatic colon cancer s/p sigmoid resection and chemo, chronic constipation, bipolar disorder presenting with hematemesis that occurred Saturday. She has been evaluated for hematemesis 6 months ago including EGD which did not find a source. She has not had any signs of bleeding since being in the hospital, ~4 days. Hb stable. She described the vomit as bright red Saturday night. She went to Dr. Heath office for chemo and she was sent to the ED. She has been hemodynamically stable. She admits to using advil 2x per day for knee pain regularly. She does not take any acid suppressive medications. Last BM was today and not reported as bloody. She complains of diffuse mild abdominal pain, vague and non-specific. She reports it did not improve with passing stool. She is requesting pain meds. She has large cut across the bridge of her nose. She states she fell after being very drunk. Last EGD was 01/12, normal. PMHx - Colon Cancer with liver mets 2014 s/p resection and chemo with Dr. Heath. Lung mets Dx 07/2017. Chronic constipation. PSHx - Last colonoscopy 2016 with diverticulosis, hemorrhoids, no signs of cancerous lesion but bowel prep suboptimal. FmHx - father lung cancer, 2016. SocHx - Non smoker, previous alcohol abuse, drinks occasionally. On disability, living with friends. 12pt ROS completed and negative except for as above. Past Patient History - Infectious Disease Hx of Infectious Diseases: None - Past Medical History & Family History Past Medical History?: Yes - Past Social History Smoking Status: Never Smoked - CARDIAC Hx Hypertension: Yes - PULMONARY Hx Asthma: Yes - NEUROLOGICAL Hx Neurological Disorder: No - HEENT Hx HEENT Problems: No - RENAL Hx Chronic Kidney Disease: No - ENDOCRINE/METABOLIC Hx Endocrine Disorders: No - HEMATOLOGICAL/ONCOLOGICAL Hx Anemia: Yes - INTEGUMENTARY Hx Dermatological Problems: No - MUSCULOSKELETAL/RHEUMATOLOGICAL Hx Arthritis: Yes Hx Rheumatoid Arthritis: Yes - GASTROINTESTINAL Hx Gastrointestinal Disorders: Yes Hx Bowel Surgery: Yes Other/Comment: COLON CANCER STAGE 4 WITH CHEMOTHERAPY. R side port a cath - GENITOURINARY/GYNECOLOGICAL Hx Genitourinary Disorders: No - PSYCHIATRIC Hx Anxiety: Yes Hx Bipolar Disorder: Yes Hx Depression: Yes Hx Schizophrenia: Yes Hx Substance Use: No - SURGICAL HISTORY Hx Surgeries: Yes (SEE COMMENT) Hx Orthopedic Surgery: Yes (left knee TKR 03/2017) Hx Tubal Ligation: Yes (2005) Hx Vascular Access Device: Yes (RIGHT SUBCLAVIAN 2014) Other/Comment: colon cancer surgery april 2014 to remove tumor, rt side subclavian Port - ANESTHESIA Hx Anesthesia: Yes Hx Anesthesia Reactions: No Hx Malignant Hyperthermia: No Meds Allergies/Adverse Reactions: Allergies Allergy/AdvReac Type Severity Reaction Status Date / Time No Known Allergies Allergy Verified 06/02/18 11:42 - Medications Medications: Current Medications Albuterol (Ventolin Hfa 90 Mcg/Actuation (8 G)) 1 puff IH RQ4 [facility] Last Admin: 06/06/18 08:32 Dose: 1 puff Amlodipine Besylate (Norvasc) 10 mg PO DAILY [facility] Last Admin: 06/06/18 09:13 Dose: 10 mg Bacitracin (Bacitracin) 0 gm TOP BID [facility] Last Admin: 06/06/18 09:16 Dose: 1 applic Clonazepam (Klonopin) 2 mg PO TID [facility] Last Admin: 06/06/18 09:14 Dose: 2 mg Duloxetine HCl (Cymbalta) 30 mg PO DAILY [facility] Last Admin: 06/06/18 09:14 Dose: 30 mg Escitalopram Oxalate (Lexapro) 20 mg PO DAILY [facility] Last Admin: 06/06/18 09:14 Dose: 20 mg Lactulose (Enulose) 20 gm PO HS PRN PRN Reason: Constipation Morphine Sulfate (Morphine) 4 mg IV Q6 PRN PRN Reason: Pain, moderate (4-7) Pantoprazole Sodium (Protonix Ec Tab) 40 mg PO DAILY [facility] Last Admin: 06/06/18 09:13 Dose: 40 mg Polyethylene Glycol (Miralax) 17 gm PO TID [facility] Last Admin: 06/06/18 09:14 Dose: 17 gm Risperidone (Risperdal Tab) 2 mg PO BID [facility] Last Admin: 06/06/18 09:13 Dose: 2 mg Rosuvastatin Calcium (Crestor) 10 mg PO HS [facility] Last Admin: 06/05/18 21:35 Dose: 10 mg Tolterodine Tartrate (Detrol La) 4 mg PO DAILY [facility] Last Admin: 06/06/18 09:13 Dose: 4 mg Zolpidem Tartrate (Ambien) 5 mg PO HS [facility] Last Admin: 06/05/18 21:35 Dose: 5 mg Physical Exam - Constitutional Appears: Non-toxic, No Acute Distress - Head Exam Head Exam: NORMAL INSPECTION. absent: ATRAUMATIC - Eye Exam Eye Exam: EOMI, Normal appearance - Respiratory Exam Respiratory Exam: Clear to Auscultation Bilateral, NORMAL BREATHING PATTERN - Cardiovascular Exam Cardiovascular Exam: REGULAR RHYTHM, +S1, +S2 - GI/Abdominal Exam GI & Abdominal Exam: Normal Bowel Sounds, Soft, Tenderness Additional comments: Diffusely tender across abdomen, rib cage and hips. - Extremities Exam Extremities exam: Positive for: normal inspection. Negative for: pedal edema - Neurological Exam Neurological exam: Oriented x3 - Psychiatric Exam Psychiatric exam: Flat Affect, Normal Mood - Skin Skin Exam: Normal Color, Warm Results - Vital Signs Recent Vital Signs: Last Vital Signs Temp 98.3 F 06/06/18 07:44 Pulse 91 H 06/06/18 07:44 Resp 20 06/06/18 07:44 BP 122/80 06/06/18 07:44 Pulse Ox 97 06/06/18 07:44 - Labs Result Diagrams: 06/05/18 14:52 06/05/18 14:52 Labs: Laboratory Results - last 24 hr 06/05/18 06/05/18 06/05/18 14:52 14:52 14:52 WBC 3.4 L RBC 3.51 L Hgb 9.5 L Hct 29.0 L MCV 82.5 MCH 27.0 MCHC 32.7 L RDW 19.6 H Plt Count 135 MPV 7.5 Neut % (Auto) 62.8 Lymph % (Auto) 25.1 [place] % (Auto) 10.0 Eos % (Auto) 1.6 Baso % (Auto) 0.5 Neut # (Auto) 2.2 Lymph # (Auto) 0.9 L [place] # (Auto) 0.3 Eos # (Auto) 0.1 Baso # (Auto) 0.0 PT 13.8 H INR 1.3 APTT 31 Sodium 136 Potassium 4.1 Chloride 101 Carbon Dioxide 30 Anion Gap 9 L BUN 8 Creatinine 0.8 Est GFR ( Amer) > 60 Est GFR (Non-Af Amer) > 60 Random Glucose 105 D Calcium 8.6 Total Bilirubin 0.5 AST 20 ALT 9 D Alkaline Phosphatase 58 Total Protein 6.0 L Albumin 3.7 Globulin 2.3 Albumin/Globulin Ratio 1.6 Urine HCG, Qual 06/06/18 07:33 WBC RBC Hgb Hct MCV MCH MCHC RDW Plt Count MPV Neut % (Auto) Lymph % (Auto) [place] % (Auto) Eos % (Auto) Baso % (Auto) Neut # (Auto) Lymph # (Auto) [place] # (Auto) Eos # (Auto) Baso # (Auto) PT INR APTT Sodium Potassium Chloride Carbon Dioxide Anion Gap BUN Creatinine Est GFR ( Amer) Est GFR (Non-Af Amer) Random Glucose Calcium Total Bilirubin AST ALT Alkaline Phosphatase Total Protein Albumin Globulin Albumin/Globulin Ratio Urine HCG, Qual Negative Assessment & Plan - Assessment and Plan (Free Text) Assessment: #Hematemesis, self reported and not witnessed #Chronic NSAID use #Abdominal pain #Facial laceration -after falling while intoxicated #Alcohol abuse #Metastatic colon cancer s/p resection (2014) and chemo - lung and liver. #Bipolar disorder #Chronic anemia #Diverticulosis #Hemorrhoids Plan: -Last EGD for hematemesis 01/12, normal. -No active GI bleed. She has complained about this problem multiple times w ithout evidence of acute decline in Hb. Level of suspicion of upper GI bleed is very low, but patient is adamant and has complained multiple times she has been vomiting blood. NSAID induced ulcer would be most likely. -Schedule EGD -Abdominal pain is vague and mild. No acute abdomen. I suspect as psychiatric component, secondary gain. -PPI PO Daily inpatient and outpatient as she is actively using NSAIDs. -Avoid NSAIDs, anticoagulation. -Antiemetics Case discussed with Dr. Sharma, see attestation. - Date & Time Date: 06/06/18 Time: 09:49 <Manolo Sharma Y - Last Filed: 06/06/18 11:28> Meds - Medications Medications: Current Medications Albuterol (Ventolin Hfa 90 Mcg/Actuation (8 G)) 1 puff IH RQ4 [facility] Last Admin: 06/06/18 08:32 Dose: 1 puff Amlodipine Besylate (Norvasc) 10 mg PO DAILY [facility] Last Admin: 06/06/18 09:13 Dose: 10 mg Bacitracin (Bacitracin) 0 gm TOP BID [facility] Last Admin: 06/06/18 09:16 Dose: 1 applic Clonazepam (Klonopin) 2 mg PO TID [facility] Last Admin: 06/06/18 09:14 Dose: 2 mg Duloxetine HCl (Cymbalta) 30 mg PO DAILY [facility] Last Admin: 06/06/18 09:14 Dose: 30 mg Escitalopram Oxalate (Lexapro) 20 mg PO DAILY [facility] Last Admin: 06/06/18 09:14 Dose: 20 mg Lactulose (Enulose) 20 gm PO HS PRN PRN Reason: Constipation Morphine Sulfate (Morphine) 4 mg IV Q6 PRN PRN Reason: Pain, moderate (4-7) Pantoprazole Sodium (Protonix Ec Tab) 40 mg PO DAILY [facility] Last Admin: 06/06/18 09:13 Dose: 40 mg Polyethylene Glycol (Miralax) 17 gm PO DAILY [facility] Risperidone (Risperdal Tab) 2 mg PO BID [facility] Last Admin: 06/06/18 09:13 Dose: 2 mg Rosuvastatin Calcium (Crestor) 10 mg PO HS [facility] Last Admin: 06/05/18 21:35 Dose: 10 mg Tolterodine Tartrate (Detrol La) 4 mg PO DAILY [facility] Last Admin: 06/06/18 09:13 Dose: 4 mg Zolpidem Tartrate (Ambien) 5 mg PO HS [facility] Last Admin: 06/05/18 21:35 Dose: 5 mg Results - Vital Signs Recent Vital Signs: Last Vital Signs Temp 98.3 F 06/06/18 07:44 Pulse 91 H 06/06/18 07:44 Resp 20 06/06/18 07:44 BP 122/80 06/06/18 07:44 Pulse Ox 97 06/06/18 07:44 - Labs Result Diagrams: 06/05/18 14:52 06/05/18 14:52 Labs: Laboratory Results - last 24 hr 06/05/18 06/05/18 06/05/18 14:52 14:52 14:52 WBC 3.4 L RBC 3.51 L Hgb 9.5 L Hct 29.0 L MCV 82.5 MCH 27.0 MCHC 32.7 L RDW 19.6 H Plt Count 135 MPV 7.5 Neut % (Auto) 62.8 Lymph % (Auto) 25.1 [place] % (Auto) 10.0 Eos % (Auto) 1.6 Baso % (Auto) 0.5 Neut # (Auto) 2.2 Lymph # (Auto) 0.9 L [place] # (Auto) 0.3 Eos # (Auto) 0.1 Baso # (Auto) 0.0 PT 13.8 H INR 1.3 APTT 31 Sodium 136 Potassium 4.1 Chloride 101 Carbon Dioxide 30 Anion Gap 9 L BUN 8 Creatinine 0.8 Est GFR ( Amer) > 60 Est GFR (Non-Af Amer) > 60 Random Glucose 105 D Calcium 8.6 Total Bilirubin 0.5 AST 20 ALT 9 D Alkaline Phosphatase 58 Total Protein 6.0 L Albumin 3.7 Globulin 2.3 Albumin/Globulin Ratio 1.6 Urine HCG, Qual 06/06/18 07:33 WBC RBC Hgb Hct MCV MCH MCHC RDW Plt Count MPV Neut % (Auto) Lymph % (Auto) [place] % (Auto) Eos % (Auto) Baso % (Auto) Neut # (Auto) Lymph # (Auto) [place] # (Auto) Eos # (Auto) Baso # (Auto) PT INR APTT Sodium Potassium Chloride Carbon Dioxide Anion Gap BUN Creatinine Est GFR ( Amer) Est GFR (Non-Af Amer) Random Glucose Calcium Total Bilirubin AST ALT Alkaline Phosphatase Total Protein Albumin Globulin Albumin/Globulin Ratio Urine HCG, Qual Negative Attending/Attestation - Attestation I have personally seen and examined this patient.: Yes I have fully participated in the care of the patient.: Yes I have reviewed all pertinent clinical information: Yes Notes (Text): 06/06/18 11:23 I have seen and examined patient with GI fellow. Agree with above documentation with the following additions. In brief, this is a 47 year old female with history of metastatic colon cancer on chemotherapy, bipolar disorder, obesity (BMI 38) who presents to hospital with complaint of hematemesis. She reports one episode of blood tinged emesis 4 days ago and admits to recent NSAID use for knee related pain. She does endorse ongoing diffuse abdominal pain, 5/10 intensity which is worse after meal consumption. She denies nausea, fever/chills, weight loss, rectal bleeding, or change in bowel habits. She had similar complaints in December 2017, underwent EGD without significant findings. Additional physical examination: Abdomen: no palpable hepato/splenomegaly Metastatic colon cancer on chemotherapy Anemia Hematemesis Bipolar disorder Obesity - NPO - Continue with PPI therapy - Anti-emetic therapy PRN - Given episode of hematemesis with recent ETOH abuse and ongoing NSAID use, plan for EGD today to rule out peptic ulcer disease, esophagitis, etc - Further recommendations following endoscopic evaluation
[2018-06-06] MEDS ORDERED: Propofol 10 mg/ml Inj (20 ML) ONE (12:18)
[2018-06-06] MEDS ORDERED: Midazolam 2 MG/2 ML VIAL ONE (12:18)
[2018-06-06] MEDS ORDERED: Albuterol HFA 90 mcg/actuation (8 g) ONE (12:38)
--- NOTE | 2018-06-06 13:13 | CP.PCM.PN ---
Subjective - Date & Time of Evaluation Date of Evaluation: 06/06/18 Time of Evaluation: 13:10 - Subjective Subjective: Patient seen and examined, resting in bed comfortably. She reports ongoing diffuse abdominal pain but denies further nausea, vomiting, fever/chills. s/p EGD today showing mild gastritis, otherwise unremarkable. Objective - Vital Signs/Intake and Output Vital Signs (last 24 hours): Temp Pulse Resp BP Pulse Ox 98.3 F 94 H 20 156/69 H 100 06/06/18 12:35 06/06/18 12:35 06/06/18 12:35 06/06/18 12:35 06/06/18 12:35 Intake and Output: 06/06/18 06/06/18 06:59 18:59 Intake Total 350 250 Balance 350 250 - Medications Medications: Current Medications Albuterol (Ventolin Hfa 90 Mcg/Actuation (8 G)) 1 puff IH RQ4 [facility] Last Admin: 06/06/18 11:31 Dose: Not Given Amlodipine Besylate (Norvasc) 10 mg PO DAILY [facility] Last Admin: 06/06/18 09:13 Dose: 10 mg Bacitracin (Bacitracin) 0 gm TOP BID [facility] Last Admin: 06/06/18 09:16 Dose: 1 applic Clonazepam (Klonopin) 2 mg PO TID [facility] Last Admin: 06/06/18 09:14 Dose: 2 mg Duloxetine HCl (Cymbalta) 30 mg PO DAILY [facility] Last Admin: 06/06/18 09:14 Dose: 30 mg Escitalopram Oxalate (Lexapro) 20 mg PO DAILY [facility] Last Admin: 06/06/18 09:14 Dose: 20 mg Famotidine (Pepcid) 20 mg PO DAILY PRN PRN Reason: GI distress Lactulose (Enulose) 20 gm PO HS PRN PRN Reason: Constipation Morphine Sulfate (Morphine) 4 mg IV Q6 PRN PRN Reason: Pain, moderate (4-7) Polyethylene Glycol (Miralax) 17 gm PO DAILY [facility] Last Admin: 06/06/18 11:37 Dose: Not Given Risperidone (Risperdal Tab) 2 mg PO BID [facility] Last Admin: 06/06/18 09:13 Dose: 2 mg Rosuvastatin Calcium (Crestor) 10 mg PO HS [facility] Last Admin: 06/05/18 21:35 Dose: 10 mg Tolterodine Tartrate (Detrol La) 4 mg PO DAILY [facility] Last Admin: 06/06/18 09:13 Dose: 4 mg Zolpidem Tartrate (Ambien) 5 mg PO HS [facility] Last Admin: 06/05/18 21:35 Dose: 5 mg - Labs Labs: 06/05/18 14:52 06/05/18 14:52 PT 13.8 SECONDS (9.7-12.2) H 06/05/18 14:52 INR 1.3 06/05/18 14:52 APTT 31 SECONDS (21-34) 06/05/18 14:52 Assessment and Plan - Assessment and Plan (Free Text) Assessment: Metastatic colon cancer, currently on chemotherapy Obesity Bipolar disorder Hematemesis, likely related to recent heavy ETOH use - s/p EGD without significant findings Plan: - Advance diet as tolerated - Can discontinue PPI therapy, instead change to H2 lucho on PRN basis - ETOH cessation counseling - Follow up oncology recommendations - Maintain bowel regimen to prevent constipation - No further planned GI interventions, will sign off case. Please reconsult as necessary, thank you.
[2018-06-06 16:11] VITALS: BP 116/77; PULSE 92; RESP 20; TEMP 97.9; O2SAT 95
--- NOTE | 2018-06-06 16:59 | CP.PCM.PN ---
Subjective - Date & Time of Evaluation Date of Evaluation: 06/06/18 Time of Evaluation: 17:00 - Subjective Subjective: Alert Awake tolerating diet. No distress. Objective - Vital Signs/Intake and Output Vital Signs (last 24 hours): Temp Pulse Resp BP Pulse Ox 97.9 F 92 H 20 116/77 95 06/06/18 16:00 06/06/18 16:00 06/06/18 16:00 06/06/18 16:00 06/06/18 16:00 Intake and Output: 06/06/18 06/06/18 06:59 18:59 Intake Total 350 350 Balance 350 350 - Medications Medications: Current Medications Albuterol (Ventolin Hfa 90 Mcg/Actuation (8 G)) 1 puff IH RQ4 [facility] Last Admin: 06/06/18 16:04 Dose: Not Given Amlodipine Besylate (Norvasc) 10 mg PO DAILY [facility] Last Admin: 06/06/18 09:13 Dose: 10 mg Bacitracin (Bacitracin) 0 gm TOP BID [facility] Last Admin: 06/06/18 09:16 Dose: 1 applic Clonazepam (Klonopin) 2 mg PO TID [facility] Last Admin: 06/06/18 14:07 Dose: 2 mg Duloxetine HCl (Cymbalta) 30 mg PO DAILY [facility] Last Admin: 06/06/18 09:14 Dose: 30 mg Escitalopram Oxalate (Lexapro) 20 mg PO DAILY [facility] Last Admin: 06/06/18 09:14 Dose: 20 mg Famotidine (Pepcid) 20 mg PO DAILY PRN PRN Reason: GI distress Last Admin: 06/06/18 14:07 Dose: 20 mg Lactulose (Enulose) 20 gm PO HS PRN PRN Reason: Constipation Morphine Sulfate (Morphine) 4 mg IV Q6 PRN PRN Reason: Pain, moderate (4-7) Last Admin: 06/06/18 14:14 Dose: 4 mg Polyethylene Glycol (Miralax) 17 gm PO DAILY [facility] Last Admin: 06/06/18 14:08 Dose: 17 gm Risperidone (Risperdal Tab) 2 mg PO BID [facility] Last Admin: 06/06/18 09:13 Dose: 2 mg Rosuvastatin Calcium (Crestor) 10 mg PO HS [facility] Last Admin: 06/05/18 21:35 Dose: 10 mg Tolterodine Tartrate (Detrol La) 4 mg PO DAILY [facility] Last Admin: 06/06/18 09:13 Dose: 4 mg Zolpidem Tartrate (Ambien) 5 mg PO HS [facility] Last Admin: 06/05/18 21:35 Dose: 5 mg - Labs Labs: 06/05/18 14:52 06/05/18 14:52 PT 13.8 SECONDS (9.7-12.2) H 06/05/18 14:52 INR 1.3 06/05/18 14:52 APTT 31 SECONDS (21-34) 06/05/18 14:52 Assessment and Plan - Assessment and Plan (Free Text) Assessment: 47 year old female with metastatic colon cancer admitted with n/v seen and examined. Alert and oriented X3, ambulatory, denies any abdominal pain or distress. S/p colonoscopy today no major bleeding or abnormalities found. Cleared by GI. Discussed with Dr. Dionisio Harris. Planned to discharge home today. Advised to f/u with PMD in 1 week.
[2018-06-06] MEDS ORDERED: Pneumococcal 23-Valent Vaccine IM ONE (17:01)
--- NOTE | 2018-06-08 10:00 | CP.PCM.DIS ---
Provider - Provider Date of Admission: 06/02/18 14:57 Attending physician: Deloris Howard MD Primary care physician: deloris howard Consults: cardio gi heme onc Time Spent in preparation of Discharge (in minutes): 20 Diagnosis - Discharge Diagnosis (1) Anemia Status: Acute (2) Anxiety Status: Acute (3) Blood in stool Status: Acute (4) Bronchitis Status: Acute (5) Diverticulitis Status: Acute (6) Gastrointestinal hemorrhage Status: Acute (7) Hematemesis Status: Acute (8) History of rectal bleeding Status: Acute (9) Stage IV carcinoma of colon Status: Acute Hospital Course - Lab Results Lab Results: Most Recent Lab Values WBC 3.4 K/uL (4.8-10.8) L 06/05/18 14:52 RBC 3.51 Mil/uL (3.80-5.20) L 06/05/18 14:52 Hgb 9.5 g/dL (11.0-16.0) L 06/05/18 14:52 Hct 29.0 % (34.0-47.0) L 06/05/18 14:52 MCV 82.5 fL (81.0-99.0) 06/05/18 14:52 MCH 27.0 pg (27.0-31.0) 06/05/18 14:52 MCHC 32.7 g/dL (33.0-37.0) L 06/05/18 14:52 RDW 19.6 % (11.5-14.5) H 06/05/18 14:52 Plt Count 135 K/uL (130-400) 06/05/18 14:52 MPV 7.5 fL (7.2-11.7) 06/05/18 14:52 Neut % (Auto) 62.8 % (50.0-75.0) 06/05/18 14:52 Lymph % (Auto) 25.1 % (20.0-40.0) 06/05/18 14:52 Mccreary % (Auto) 10.0 % (0.0-10.0) 06/05/18 14:52 Eos % (Auto) 1.6 % (0.0-4.0) 06/05/18 14:52 Baso % (Auto) 0.5 % (0.0-2.0) 06/05/18 14:52 Neut # (Auto) 2.2 K/uL (1.8-7.0) 06/05/18 14:52 Lymph # (Auto) 0.9 K/uL (1.0-4.3) L 06/05/18 14:52 Mccreary # (Auto) 0.3 K/uL (0.0-0.8) 06/05/18 14:52 Eos # (Auto) 0.1 K/uL (0.0-0.7) 06/05/18 14:52 Baso # (Auto) 0.0 K/uL (0.0-0.2) 06/05/18 14:52 Differential Comment 06/03/18 11:51 PT 13.8 SECONDS (9.7-12.2) H 06/05/18 14:52 INR 1.3 06/05/18 14:52 APTT 31 SECONDS (21-34) 06/05/18 14:52 Sodium 136 mmol/L (132-148) 06/05/18 14:52 Potassium 4.1 mmol/L (3.6-5.2) 06/05/18 14:52 Chloride 101 mmol/L (98-107) 06/05/18 14:52 Carbon Dioxide 30 mmol/L (22-30) 06/05/18 14:52 Anion Gap 9 (10-20) L 06/05/18 14:52 BUN 8 mg/dL (7-17) 06/05/18 14:52 Creatinine 0.8 mg/dL (0.7-1.2) 06/05/18 14:52 Est GFR ( Amer) > 60 06/05/18 14:52 Est GFR (Non-Af Amer) > 60 06/05/18 14:52 Random Glucose 105 mg/dL (65-105) D 06/05/18 14:52 Calcium 8.6 mg/dl (8.6-10.4) 06/05/18 14:52 Phosphorus 4.5 mg/dL (2.5-4.5) 06/02/18 14:11 Magnesium 1.8 mg/dL (1.6-2.3) 06/02/18 14:11 Total Bilirubin 0.5 mg/dL (0.2-1.3) 06/05/18 14:52 AST 20 U/L (14-36) 06/05/18 14:52 ALT 9 U/L (9-52) D 06/05/18 14:52 Alkaline Phosphatase 58 U/L (38-126) 06/05/18 14:52 Total Protein 6.0 g/dL (6.3-8.3) L 06/05/18 14:52 Albumin 3.7 g/dL (3.5-5.0) 06/05/18 14:52 Globulin 2.3 gm/dL (2.2-3.9) 06/05/18 14:52 Albumin/Globulin Ratio 1.6 (1.0-2.1) 06/05/18 14:52 Urine Color Yellow (YELLOW) 06/02/18 14:14 Urine Clarity Hazy (Clear) 06/02/18 14:14 Urine pH 6.0 (5.0-8.0) 06/02/18 14:14 Ur Specific Veteran 1.010 (1.003-1.030) 06/02/18 14:14 Urine Protein Negative mg/dL (NEGATIVE) 06/02/18 14:14 Urine Glucose (UA) Normal mg/dL (Normal) 06/02/18 14:14 Urine Ketones Negative mg/dL (NEGATIVE) 06/02/18 14:14 Urine Blood Negative (NEGATIVE) 06/02/18 14:14 Urine Nitrate Negative (NEGATIVE) 06/02/18 14:14 Urine Bilirubin Negative (NEGATIVE) 06/02/18 14:14 Urine Urobilinogen Normal mg/dL (0.2-1.0) 06/02/18 14:14 Ur Leukocyte Esterase Neg Mina/uL (Negative) 06/02/18 14:14 Urine WBC (Auto) 2 /hpf (0-5) 06/02/18 14:14 Urine RBC (Auto) 1 /hpf (0-3) 06/02/18 14:14 Ur Squamous Epith Cells 10 /hpf (0-5) H 06/02/18 14:14 Urine Bacteria Rare (<OCC) 06/02/18 14:14 Urine HCG, Qual Negative (NEGATIVE) 06/06/18 07:33 Blood Type A POSITIVE 06/02/18 14:11 Antibody Screen Negative 06/02/18 14:11 - Hospital Course Hospital Course: Admitted with the hematemesis patient has multiple admission with history of malignancy underwent a colonoscopy which was negative for the active bleeding ulcer eventually patient was discharged Discharge Exam - Head Exam Head Exam: NORMAL INSPECTION. absent: ATRAUMATIC - Eye Exam Eye Exam: EOMI, Normal appearance, PERRL Pupil Exam: NORMAL ACCOMODATION, PERRL - Neck Exam Neck exam: Full Rom - Respiratory Exam Respiratory Exam: Accessory Muscle Use, Decreased Breath Sounds, NORMAL BREATHING PATTERN - Cardiovascular Exam Cardiovascular Exam: REGULAR RHYTHM, +S1, +S2 - GI/Abdominal Exam GI & Abdominal Exam: Diminished Bowel Sounds - Rectal Exam Rectal Exam: Deferred Discharge Plan - Follow Up Plan Condition: GOOD Disposition: HOME/ ROUTINE Instructions: Gastrointestinal Bleeding (DC), Acute Abdominal Pain (DC), Acute Abdominal Pain (GEN) Referrals: Rosaura Howard MD [Staff Provider] -
== END 2018-06-06 17:45 | disposition home or self-care (01) ==
LOC: C.ER 11:15 → INTOOBSV 14:57 → C.9E 14:57 → C.3T 17:03
PROVIDERS: ADMIT Internal Medicine Nephrology; ATTEND Internal Medicine Nephrology
DX: D64.9 Anemia, unspecified (principal); C18.9 Malignant neoplasm of colon, unspecified; F41.9 Anxiety disorder, unspecified; J40 Bronchitis, not specified as acute or chronic; K57.92 Diverticulitis of intestine, part unspecified, without perforation or abscess without bleeding; K92.2 Gastrointestinal hemorrhage, unspecified; K92.0 Hematemesis; F20.9 Schizophrenia, unspecified; F31.9 Bipolar disorder, unspecified; I10 Essential (primary) hypertension; J45.909 Unspecified asthma, uncomplicated; C78.7 Secondary malignant neoplasm of liver and intrahepatic bile duct; F10.129 Alcohol abuse with intoxication, unspecified; S01.81XA Laceration without foreign body of other part of head, initial encounter; W19.XXXA Unspecified fall, initial encounter; K29.70 Gastritis, unspecified, without bleeding
CPT/HCPCS: 36415; 43255; 80053; 81001; 83735; 84100; 84703; 85025; 85610; 85730; 86850; 86900; 94640; 96374; 96375; 96376; 97110; 97116; 97162; 99285; C9113; G0378; G8978; G8979; J1642; J2270; J2405; J7030

== ENCOUNTER 2018-06-19 09:38 | Emergency (ER) | payer MEDICARE ==
[2018-06-19 09:39] VITALS: BMI 37.3
[2018-06-19 09:48] VITALS: O2SAT 97
[2018-06-19 10:29] LABS: BASO % 0.6 % (0.0-2.0); EOS % 1.1 % (0.0-4.0); HEMOGLOBIN 10.5 g/dL (11.0-16.0); LYMPH # 0.5 K/uL (1.0-4.3); LYMPH % 13.1 % (20.0-40.0); MEAN CELL VOLUME 81.8 fL (81.0-99.0); MEAN CORPUSCULAR HEMOGLOBIN 26.5 pg (27.0-31.0); MEAN CORPUSCULAR HGB CONC 32.3 g/dL (33.0-37.0); MEAN PLATELET VOLUME 8.2 fL (7.2-11.7); MONO # 0.1 K/uL (0.0-0.8); MONO % 1.9 % (0.0-10.0); NEUT # 3.4 K/uL (1.8-7.0); NEUT % 83.3 % (50.0-75.0); RBC 3.96 Mil/uL (3.80-5.20); RED CELL DISTRIBUTION WIDTH 18.6 % (11.5-14.5); WHITE BLOOD COUNT 4.1 K/uL (4.8-10.8)
--- NOTE | 2018-06-19 10:59 | RAD ---
Date of service: 06/19/2018 PROCEDURE: CHEST RADIOGRAPH, 1 VIEW HISTORY: chest pain COMPARISON: 05/25/2018. FINDINGS: Right Port-A-Cath terminates in the SVC. LUNGS: The lungs are well inflated and clear. PLEURA: No pneumothorax or pleural effusion. CARDIOVASCULAR: There is mild cardiomegaly. No aortic atherosclerotic calcifications present. OSSEOUS STRUCTURES: Within normal limits for the patient's age. VISUALIZED UPPER ABDOMEN: Normal. OTHER FINDINGS: None. IMPRESSION: Right Port-A-Cath terminates in the SVC. No active pulmonary disease.
[2018-06-19 11:02] LABS: ALB/GLOB RATIO 1.4 (1.0-2.1); ALBUMIN 3.6 g/dL (3.5-5.0); ALT/SGPT 17 U/L (9-52); AST/SGOT 34 U/L (14-36); BLOOD UREA NITROGEN 14 mg/dL (7-17); CALCIUM 8.8 mg/dl (8.6-10.4); GFR NON-AFRICAN AMERICAN > 60
[2018-06-19 11:27] VITALS: BP 139/86; PULSE 88; RESP 16; TEMP 97.7
--- NOTE | 2018-06-19 12:29 | C.PDOC ---
History Of Present Illness 47 y/o female presents to ED complaining of chest pain that is sharp in nature, radiating to his left arm. He denies any SOB, fever, or cough. Patient has multiple admissions in the ER for similar. Patient was recently hospitalized for chest pain approximately 1 month ago. Chief Complaint (Nursing): Chest Pain History Per: Patient History/Exam Limitations: no limitations Onset/Duration Of Symptoms: Hrs Current Symptoms Are (Timing): Still Present Past Medical History Reviewed: Historical Data, Nursing Documentation, Vital Signs Vital Signs: Last Vital Signs Temp 97.7 F 06/19/18 11:27 Pulse 88 06/19/18 11:27 Resp 16 06/19/18 11:27 BP 139/86 06/19/18 11:27 Pulse Ox 97 06/19/18 11:27 - Medical History PMH: Anemia, Anxiety, Arthritis, Asthma, Back Problems, Bipolar Disorder, Depression, HTN, Malignancy (Colon), Rheumatoid Arthritis, Schizophrenia Denies: Chronic Kidney Disease - [facility] Procedures CLOSED ENDOSCOPIC BIOPSY OF LARGE INTESTINE (05/23/14) COLONOSCOPY (08/12/14) DX ULTRASOUND-ABDOMEN (05/23/14) EXCISION OF STOMACH, ENDO, DIAGN (01/13/18) INSERTION OF TOTALLY IMPLANTABLE VASC ACCESS DEVIC (05/23/14) LAPAROSCOP LYSIS-PERITONEAL ADHES (05/23/14) LAPAROSCOPIC SIGMOIDECTOMY (05/23/14) OTHER ENDOSCOPY OF SM INTEST (05/23/14) PACKED CELL TRANSFUSION (05/23/14) PERCUTAN NEEDLE BX OF LIVER (05/23/14) REMOVAL OF VAD FROM TRUNK SUBCU/FASCIA, PERC APPROACH (03/16/15) Family History: States: No Known Family Hx - Social History Hx Tobacco Use: No Hx Alcohol Use: No Hx Substance Use: No - Immunization History Hx Tetanus Toxoid Vaccination: No Hx Influenza Vaccination: Yes Hx Pneumococcal Vaccination: No Review Of Systems Except As Marked, All Systems Reviewed And Found Negative. Constitutional: Negative for: Fever, Chills Cardiovascular: Positive for: Chest Pain (radiating to left arm) Respiratory: Negative for: Cough, Shortness of Breath Gastrointestinal: Negative for: Nausea, Vomiting Physical Exam - Physical Exam Appears: Non-toxic, No Acute Distress Skin: Warm, Dry Head: Atraumatic Eye(s): bilateral: Normal Inspection Oral Mucosa: Moist Neck: Supple Cardiovascular: Rhythm Regular, No Murmur Respiratory: Normal Breath Sounds, No Rales, No Rhonchi, No Wheezing Gastrointestinal/Abdominal: Soft, No Tenderness Extremity: Bilateral: Atraumatic, Normal ROM ED Course And Treatment - Laboratory Results Result Diagrams: 06/19/18 10:24 06/19/18 10:24 Lab Results: Troponin I < 0.0120 ng/mL (0.00-0.120) 06/19/18 10:24 Total Bilirubin 0.5 mg/dL (0.2-1.3) 06/19/18 10:24 AST 34 U/L (14-36) 06/19/18 10:24 ALT 17 U/L (9-52) 06/19/18 10:24 Alkaline Phosphatase 68 U/L (38-126) 06/19/18 10:24 Total Protein 6.3 g/dL (6.3-8.3) 06/19/18 10:24 Albumin 3.6 g/dL (3.5-5.0) 06/19/18 10:24 Globulin 2.7 gm/dL (2.2-3.9) 06/19/18 10:24 Albumin/Globulin Ratio 1.4 (1.0-2.1) 06/19/18 10:24 ECG: Interpreted By Me, Viewed By Me ECG Rhythm: Sinus Tachycardia Rate From EC (RA) O2 Sat by Pulse Oximetry: 97 Pulse Ox Interpretation: Normal - Other Rad CXR X-Ray: Read By Radiologist Interpretation: FINDINGS: Right Port-A-Cath terminates in the SVC. LUNGS: The lungs are well inflated and clear. PLEURA: No pneumothorax or pleural effusion. CARDIOVASCULAR: There is mild cardiomegaly. No aortic atherosclerotic calcifications present. OSSEOUS STRUCTURES: Within normal limits for the patient's age. VISUALIZED UPPER ABDOMEN: Normal. OTHER FINDINGS: None. IMPRESSION: Right Port-A-Cath terminates in the SVC. No active pulmonary disease. Medical Decision Making Medical Decision Making: Plan: --EKG --Labs --Chest XR Progress: Spoke to Dr. Tila Harris who admitted patient last month. Cardiac workup negative then. Patient had normal echocardiogram August of 2017. Patient to be discharged and will follow up with PMD. Patient understands plan. Disposition - Disposition Referrals: Shaik Saxena MD [Staff Provider] - Disposition: HOME/ ROUTINE Disposition Time: 11:15 Condition: GOOD Additional Instructions: NANCY BIRD, thank you for letting us take care of you today. The emergency medical care you received today was directed at your acute symptoms. If you were prescribed any medication, please fill it and take as directed. It may take several days for your symptoms to resolve. Return to the Emergency Department if your symptoms worsen, do not improve, or if you have any other problems. Please contact your doctor or call one of the physicians/clinics you have been referred to that are listed on the Patient Visit Information form that is included in your discharge packet. Bring any paperwork you were given at discharge with you along with any medications you are taking to your follow up visit. Our treatment cannot replace ongoing medical care by a primary care provider outside of the emergency department. Thank you for allowing the [email or web address] team to be part of your care today. Follow up with your primary care doctor in 2-3 days for re-evaluation and furthe r management. Instructions: Chest Pain That Is Not Caused by the Heart (DC) Forms: [employer] (German) - Clinical Impression Clinical Impression: Atypical chest pain - Scribe Statement The provider has reviewed the documentation as recorded by the Christopheribirasema Godfrey Provider Attestation: All medical record entries made by the Scribe were at my direction and personally dictated by me. I have reviewed the chart and agree that the record a ccurately reflects my personal performance of the history, physical exam, medical decision making, and the department course for this patient. I have also personally directed, reviewed, and agree with the discharge instructions and disposition.
--- NOTE | 2018-06-21 10:38 | CARD ---
APPROVED REPORT Date of service: 06/19/2018 EKG Measurement Heart [id number] <Conclusion> Sinus tachycardia Poor R wave progression may be positional - Please repeat Abnormal ECG
== END 2018-06-19 11:27 | disposition home or self-care (01) ==
LOC: C.ER 09:38
DX: R07.89 Other chest pain (principal); M06.9 Rheumatoid arthritis, unspecified; I10 Essential (primary) hypertension; F20.9 Schizophrenia, unspecified; Z85.038 Personal history of other malignant neoplasm of large intestine

== ENCOUNTER 2018-06-25 09:38 | Emergency (ER) | payer MEDICARE ==
[2018-06-25 09:38] VITALS: BMI 37.3
[2018-06-25] MEDS ORDERED: Iohexol 240 (50 ml) PO STA (10:34)
[2018-06-25] MEDS ORDERED: Sodium Chloride 0.9% 1,000 ML IV ONE (10:37)
--- NOTE | 2018-06-25 10:45 | C.PDOC ---
History Of Present Illness 47 y/o female with hx bipolar disorder and stage 4 colon ca with mets to lung and liver c/o 2 days of knife like stabbing lower abdominal pain, constant, associated with nausea, vomiting and diarrhea. denies fever. no sick contacts. no urinary symptoms. Time Seen by Provider: 06/25/18 10:05 Chief Complaint (Nursing): Abdominal Pain History Per: Patient History/Exam Limitations: no limitations Onset/Duration Of Symptoms: Days (2) Current Symptoms Are (Timing): Still Present Severity: Mild Location Of Pain/Discomfort: RLQ, LLQ, Suprapubic Radiation Of Pain To:: None Quality Of Discomfort: Sharp Associated Symptoms: Nausea, Vomiting, Diarrhea. denies: Fever, Chills, Constipation, Urinary Symptoms Last Bowel Movement: Today Recent travel outside of the [place]: No Past Medical History Reviewed: Historical Data, Nursing Documentation, Vital Signs Vital Signs: Last Vital Signs Temp 97.6 F 06/25/18 09:47 Pulse 99 H 06/25/18 09:47 Resp 20 06/25/18 09:47 BP 136/88 06/25/18 09:47 Pulse Ox 98 06/25/18 09:47 Primary Care Provider: Shaik Saxena - Medical History PMH: Anemia, Anxiety, Arthritis, Asthma, Back Problems, Bipolar Disorder, Depression, HTN, Malignancy (Colon), Rheumatoid Arthritis, Schizophrenia Denies: Chronic Kidney Disease Other Surgeries: colon resection - [facility] Procedures CLOSED ENDOSCOPIC BIOPSY OF LARGE INTESTINE (05/23/14) COLONOSCOPY (08/12/14) DX ULTRASOUND-ABDOMEN (05/23/14) EXCISION OF STOMACH, ENDO, DIAGN (01/13/18) INSERTION OF TOTALLY IMPLANTABLE VASC ACCESS DEVIC (05/23/14) LAPAROSCOP LYSIS-PERITONEAL ADHES (05/23/14) LAPAROSCOPIC SIGMOIDECTOMY (05/23/14) OTHER ENDOSCOPY OF SM INTEST (05/23/14) PACKED CELL TRANSFUSION (05/23/14) PERCUTAN NEEDLE BX OF LIVER (05/23/14) REMOVAL OF VAD FROM TRUNK SUBCU/FASCIA, PERC APPROACH (03/16/15) Family History: States: Unknown Family Hx - Social History Hx Tobacco Use: No Hx Alcohol Use: No Hx Substance Use: No - Immunization History Hx Tetanus Toxoid Vaccination: Yes Hx Influenza Vaccination: Yes Hx Pneumococcal Vaccination: No Review Of Systems Constitutional: Negative for: Fever ENT: Negative for: Throat Pain Cardiovascular: Negative for: Chest Pain Respiratory: Negative for: Cough, Shortness of Breath Gastrointestinal: Positive for: Nausea, Vomiting, Abdominal Pain, Diarrhea. Negative for: Constipation Genitourinary: Negative for: Dysuria, Frequency Musculoskeletal: Negative for: Back Pain Skin: Negative for: Rash Neurological: Negative for: Weakness, Numbness Physical Exam - Physical Exam Appears: Non-toxic, No Acute Distress Skin: Warm, Dry Head: Atraumatic, Normacephalic Eye(s): bilateral: Normal Inspection Nose: No Discharge Oral Mucosa: Dry Neck: Supple Chest: No Tenderness Cardiovascular: Rhythm Regular, No Murmur Respiratory: No Decreased Breath Sounds, No Rales, No Rhonchi, No Wheezing Gastrointestinal/Abdominal: Bowel Sounds, Soft, Tenderness (left and right lower and suprapubic tenderness), No Distention, No Guarding, No Rebound Rectal: Deferred Back: No CVA Tenderness Neurological/Psych: Oriented x3, Normal Speech, Normal Cognition ED Course And Treatment - Laboratory Results Result Diagrams: 06/25/18 11:14 06/25/18 11:14 O2 Sat by Pulse Oximetry: 98 - CT Scan/US CT-Abd & Pelv. Other Rad Studies (CT/US): Read By Radiologist, Radiology Report Reviewed CT/US Interpretation: IMPRESSION: 1. No definitive acute abdominal or pelvic findings appreciable. Anastomotic suture line at distal sigmoid segment appears unremarkable with distal rectosigmoid collapsed and limited in the evaluation of mural thickness. No gross mural thickening appreciable throughout the colon. 2. [id number]-pu-ccffprncop enlarging left hepatic lobe metastases. 3. Splenomegaly slightly diminished in the interval. 4. Normalized hepatic density compared to prior hepatic steatosis appearance. Medical Decision Making Medical Decision Makin47 y/o female with c olon ca with n,v,d and ab pain; olabs, zofran ivf, ct scan abdomen 1545 pt with normal labs. no acute findings on abdominal ct. pt received some pain medication and now is tolerating crackers and gingerale. d/c hme with pmd f/u and stool softener Disposition Counseled Patient/Family Regarding: Studies Performed, Diagnosis, Need For Followup, Rx Given - Disposition Referrals: Shaik Saxena MD [Staff Provider] - Disposition: HOME/ ROUTINE Disposition Time: 15:53 Condition: GOOD Additional Instructions: Drink increased fluids. Take stool softener. Eat higher fiber foods. Follow up with Dr House in 1-2 days. Return to ER for vomting. diarrhea. worse apin ro any other concerns. Prescriptions: Docusate Sodium [Colace] 100 mg PO BID #60 capsule Instructions: Viral Gastroenteritis, Adult (DC) Forms: [employer] (Dominican) - Clinical Impression Clinical Impression: Gastroenteritis
[2018-06-25 11:18] LABS: BASO % 0.4 % (0.0-2.0); EOS % 0.7 % (0.0-4.0); HEMOGLOBIN 9.8 g/dL (11.0-16.0); LYMPH # 0.8 K/uL (1.0-4.3); LYMPH % 27.5 % (20.0-40.0); MEAN CELL VOLUME 80.9 fL (81.0-99.0); MEAN CORPUSCULAR HEMOGLOBIN 26.8 pg (27.0-31.0); MEAN CORPUSCULAR HGB CONC 33.1 g/dL (33.0-37.0); MONO # 0.2 K/uL (0.0-0.8); MONO % 6.3 % (0.0-10.0); NEUT # 1.9 K/uL (1.8-7.0); NEUT % 65.1 % (50.0-75.0); RBC 3.67 Mil/uL (3.80-5.20); RED CELL DISTRIBUTION WIDTH 18.7 % (11.5-14.5); WHITE BLOOD COUNT 2.9 K/uL (4.8-10.8)
[2018-06-25] MEDS ORDERED: Sodium Chloride 0.9% 1,000 ML ONE (11:18)
[2018-06-25] MEDS ORDERED: Iohexol 240 (50 ml) ONE (11:18)
[2018-06-25 11:26] LABS: SQUAMOUS EPITHIAL 1 /hpf (0-5); URINE BILIRUBIN NEGATIVE (NEGATIVE); URINE BLOOD NEGATIVE (NEGATIVE); URINE CLARITY Hazy (Clear); URINE COLOR Yellow (YELLOW); URINE GLUCOSE (UA) NORMAL (Normal); URINE LEUKOCYTE ESTERASE NEG Leu/uL (Negative); URINE PROTEIN NEGATIVE (NEGATIVE); URINE UROBILINOGEN NORMAL mg/dL (0.2-1.0)
[2018-06-25 11:29] LABS: INR 1.2; PROTHROMBIN TIME 13.5 SECONDS (9.7-12.2)
[2018-06-25 11:32] LABS: ALB/GLOB RATIO 1.2 (1.0-2.1); ALBUMIN 3.5 g/dL (3.5-5.0); ALT/SGPT 18 U/L (9-52); AST/SGOT 23 U/L (14-36); BLOOD UREA NITROGEN 11 mg/dL (7-17); CALCIUM 8.9 mg/dl (8.6-10.4); GFR NON-AFRICAN AMERICAN > 60; LIPASE 70 U/L (23-300)
[2018-06-25] MEDS ORDERED: Iodixanol 320 MG/ML 100 ML BOTTLE IV ONE (12:27)
--- NOTE | 2018-06-25 14:15 | CT ---
Date of service: 06/25/2018 PROCEDURE: CT Abdomen and Pelvis with contrast HISTORY: hx colon ca, lower ab pain COMPARISON: Abdomen and pelvis CT with contrast 01/13/2018. TECHNIQUE: Following oral and intravenous contrast administration, a CT examination of the abdomen and pelvis was performed from the domes of the diaphragms to the symphysis pubis with reformatted datasets provided not only axial but also sagittal and coronal series. Contrast dose: Visipaque 320, 100 cc Radiation dose: Total exam DLP = 1124.02 mGy-cm. This CT exam was performed using one or more of the following dose reduction techniques: Automated exposure control, adjustment of the mA and/or kV according to patient size, and/or use of iterative reconstruction technique. FINDINGS: LOWER THORAX: Trace inferior pericardial effusion again evident. Mild cardiomegaly reiterated. Remainder of the lung bases is unremarkable. LIVER: Metastasis at the left lobe liver has increased including a supero lateral left lobe mass measuring 5.5 x 5.2 cm as well as the medial left lobe mass abutting main left lobe portal vein measuring 2.4 x 1.4 cm compared to 4.1 x 4.4 cm and 1.1 x 1.0 cm respectively. No intrahepatic biliary dilatation appreciable. Prior hepatic steatosis not clearly appreciable currently. GALLBLADDER AND BILE DUCTS: Unremarkable. PANCREAS: Unremarkable. No gross lesion or ductal dilatation. SPLEEN: Spleen is still large though slightly smaller than the prior 17 cm maximum dimension, now measuring 15.4 cm without focal mass apparent. ADRENALS: Unremarkable. No mass. KIDNEYS AND URETERS: Unremarkable. No hydronephrosis. No solid mass. VASCULATURE: Unremarkable. No aortic aneurysm. No aortic atherosclerotic calcification or mural plaque present. BOWEL: Stomach is not fully distended but appears unremarkable. A small gas filled duodenal diverticulum is seen related to the 3rd portion of the duodenum with small bowel otherwise unremarkable. No bowel obstruction evident. Anastomotic suture line at the distal sigmoid is stable, partly distended with retained stool. Portion of the distal rectosigmoid is collapsed limiting evaluation of mural thickness. No gross mural thickening identified throughout the colon nevertheless. APPENDIX: Normal appendix. PERITONEUM: Unremarkable. No free fluid. No free air. LYMPH NODES: Unremarkable. No enlarged lymph nodes. BLADDER: Unremarkable. REPRODUCTIVE: Unremarkable. BONES: No acute fracture. OTHER FINDINGS: None. IMPRESSION: 1. No definitive acute abdominal or pelvic findings appreciable. Anastomotic suture line at distal sigmoid segment appears unremarkable with distal rectosigmoid collapsed and limited in the evaluation of mural thickness. No gross mural thickening appreciable throughout the colon. 2. Imre-be-etbfypfhmb enlarging left hepatic lobe metastases. 3. Splenomegaly slightly diminished in the interval. 4. Normalized hepatic density compared to prior hepatic steatosis appearance.
[2018-06-25 16:45] VITALS: BP 161/95; PULSE 76; RESP 18; TEMP 98.4
[2018-06-26 11:17] VITALS: O2SAT 98
== END 2018-06-25 16:11 | disposition home or self-care (01) ==
LOC: C.ER 09:38
DX: K52.9 Noninfective gastroenteritis and colitis, unspecified (principal)
CPT/HCPCS: 74177; 80053; 81001; 81025; 83690; 85025; 85610; 85730; 96361; 96374; 96375; 99285; J2270; J2405; J7030; Q9966; Q9967

== ENCOUNTER 2018-06-30 12:45 | Emergency (ER) | payer MEDICARE ==
[2018-06-30 12:45] VITALS: BMI 37.3
[2018-06-30 12:50] VITALS: RESP 18
[2018-06-30] MEDS ORDERED: Sodium Chloride 0.9% 500 ML IV ONE (14:02)
--- NOTE | 2018-06-30 14:13 | C.PDOC ---
History Of Present Illness 47 y/o female, with history of colon cancer with metastasis to lung and liver, presents to ED with vomiting and abdominal pain. Denies fever, chills, diarrhea, urinary symptoms, or other complaints. Patient was seen here on 06/30/[address] done that was normal. Patient had endoscopy on 06/06/18 showing mild gastritis. Time Seen by Provider: 06/30/18 13:47 Chief Complaint (Nursing): Abdominal Pain History Per: Patient History/Exam Limitations: no limitations Onset/Duration Of Symptoms: Hrs Current Symptoms Are (Timing): Still Present Past Medical History Reviewed: Historical Data, Nursing Documentation, Vital Signs Vital Signs: Last Vital Signs Temp 97.7 F 06/30/18 12:49 Pulse 90 06/30/18 12:49 Resp 18 06/30/18 12:49 BP 158/90 H 06/30/18 12:49 Pulse Ox 96 06/30/18 12:49 Primary Care Provider: Rosaura Harris - Medical History PMH: Anemia, Anxiety, Arthritis, Asthma, Back Problems, Bipolar Disorder, Depression, HTN, Malignancy (Colon), Rheumatoid Arthritis, Schizophrenia Denies: Chronic Kidney Disease - [facility] Procedures CLOSED ENDOSCOPIC BIOPSY OF LARGE INTESTINE (05/23/14) COLONOSCOPY (08/12/14) DX ULTRASOUND-ABDOMEN (05/23/14) EXCISION OF STOMACH, ENDO, DIAGN (01/13/18) INSERTION OF TOTALLY IMPLANTABLE VASC ACCESS DEVIC (05/23/14) LAPAROSCOP LYSIS-PERITONEAL ADHES (05/23/14) LAPAROSCOPIC SIGMOIDECTOMY (05/23/14) OTHER ENDOSCOPY OF SM INTEST (05/23/14) PACKED CELL TRANSFUSION (05/23/14) PERCUTAN NEEDLE BX OF LIVER (05/23/14) REMOVAL OF VAD FROM TRUNK SUBCU/FASCIA, PERC APPROACH (03/16/15) Family History: States: No Known Family Hx - Social History Hx Tobacco Use: No Hx Alcohol Use: No Hx Substance Use: No - Immunization History Hx Tetanus Toxoid Vaccination: Yes Hx Influenza Vaccination: Yes Hx Pneumococcal Vaccination: No Review Of Systems Except As Marked, All Systems Reviewed And Found Negative. Constitutional: Negative for: Fever, Chills Respiratory: Negative for: Shortness of Breath Gastrointestinal: Positive for: Vomiting, Abdominal Pain. Negative for: Diarrhea, Constipation Genitourinary: Negative for: Dysuria, Hematuria Musculoskeletal: Negative for: Back Pain Physical Exam - Physical Exam Appears: Non-toxic, No Acute Distress, Other (obese) Skin: Warm, Dry Head: Normacephalic Eye(s): bilateral: Normal Inspection Oral Mucosa: Moist Neck: Supple Cardiovascular: Rhythm Regular, No Murmur Respiratory: Normal Breath Sounds, No Rales, No Rhonchi, No Wheezing Gastrointestinal/Abdominal: Soft, Tenderness (epigastric tenderness), No Guarding Extremity: Bilateral: Atraumatic, Normal ROM Neurological/Psych: Oriented x3, Normal Speech ED Course And Treatment - Laboratory Results Result Diagrams: 06/30/18 15:16 06/30/18 15:16 O2 Sat by Pulse Oximetry: 96 (RA) Pulse Ox Interpretation: Normal Medical Decision Making Medical Decision Making: well know to er. ?hememeisis Plan: --Labs --UA --Protonix --IV fluids h/h stalbe guiac neg. recnet endo with mild gastritis. no bleedin in er. updated. pmd lee, sangeeta arreguin dc. abd soft no ttp. noted recent neg ct. Disposition - Disposition Referrals: [facility] [employer] [employer] [employer] [facility] [Outside] [facility] [Outside] Manolo Sharma MD [Staff Provider] - Disposition: HOME/ ROUTINE Disposition Time: 16:00 Condition: STABLE Additional Instructions: follow up with your doctor/clinic. return to er with worsening. Instructions: Gastrointestinal Bleeding, Acute Abdomen (Belly Pain) Forms: [facility] (Greek) - Clinical Impression Clinical Impression: Abdominal pain - Scribe Statement The provider has reviewed the documentation as recorded by the Gloria Godfrey Provider Attestation: All medical record entries made by the Scribe were at my direction and personally dictated by me. I have reviewed the chart and agree that the record accurately reflects my personal performance of the history, physical exam, medical decision making, and the department course for this patient. I have also personally directed, reviewed, and agree with the discharge instructions and dis position.
[2018-06-30 15:22] LABS: BASO % 0.2 % (0.0-2.0); HEMOGLOBIN 10.3 g/dL (11.0-16.0); LYMPH # 0.9 K/uL (1.0-4.3); LYMPH % 26.2 % (20.0-40.0); MEAN CELL VOLUME 79.9 fL (81.0-99.0); MEAN CORPUSCULAR HGB CONC 32.5 g/dL (33.0-37.0); MEAN PLATELET VOLUME 7.7 fL (7.2-11.7); MONO # 0.2 K/uL (0.0-0.8); MONO % 5.6 % (0.0-10.0); NEUT # 2.4 K/uL (1.8-7.0); NRBC % 0.1 % (0.0-2.0); RBC 3.96 Mil/uL (3.80-5.20); RED CELL DISTRIBUTION WIDTH 18.4 % (11.5-14.5); WHITE BLOOD COUNT 3.6 K/uL (4.8-10.8)
[2018-06-30 15:36] LABS: SQUAMOUS EPITHIAL 2 /hpf (0-5); URINE BACTERIA RARE (<OCC); URINE BILIRUBIN NEGATIVE (NEGATIVE); URINE BLOOD NEGATIVE (NEGATIVE); URINE CLARITY Clear (Clear); URINE COLOR Straw (YELLOW); URINE GLUCOSE (UA) NORMAL (Normal); URINE LEUKOCYTE ESTERASE NEG Leu/uL (Negative); URINE PROTEIN NEGATIVE (NEGATIVE); URINE UROBILINOGEN NORMAL mg/dL (0.2-1.0)
[2018-06-30 15:40] LABS: ALB/GLOB RATIO 1.2 (1.0-2.1); ALBUMIN 3.7 g/dL (3.5-5.0); ALT/SGPT 21 U/L (9-52); AST/SGOT 27 U/L (14-36); BLOOD UREA NITROGEN 9 mg/dL (7-17); CALCIUM 9.2 mg/dl (8.6-10.4); GFR NON-AFRICAN AMERICAN > 60; LIPASE 149 U/L (23-300)
[2018-06-30 16:37] VITALS: BP 137/87; PULSE 79; TEMP 97.4
[2018-06-30 20:24] VITALS: O2SAT 96
== END 2018-06-30 16:36 | disposition home or self-care (01) ==
LOC: C.ER 12:45
DX: R10.9 Unspecified abdominal pain (principal); I10 Essential (primary) hypertension; Z85.038 Personal history of other malignant neoplasm of large intestine; C78.00 Secondary malignant neoplasm of unspecified lung; C78.7 Secondary malignant neoplasm of liver and intrahepatic bile duct
CPT/HCPCS: 80053; 81001; 83690; 85025; 85730; 86850; 86900; 96361; 96374; 96375; 99283; C9113; G0328; J2405; J7040

== ENCOUNTER 2018-07-08 17:13 | Emergency (ER) | payer MEDICARE ==
[2018-07-08 17:13] VITALS: BMI 37.3
[2018-07-08 17:41] VITALS: O2SAT 100
[2018-07-08] MEDS ORDERED: Sodium Chloride 0.9% 1,000 ML IV ONE (17:46)
--- NOTE | 2018-07-08 18:03 | C.PDOC ---
History Of Present Illness 47 year old female presents to the ED complaining of epigastric abdominal pain for one day. Denies any nausea, vomiting, diarrhea, fever, chills, chest pain, shortness of breath, back pain, or urinary symptoms. Pt also complains of left arm pain. Denies any known trauma or injuries. Denies any weakness, numbness, or tingling. Pt with history of similar prior visits for same complaints. Time Seen by Provider: 07/08/18 17:24 Chief Complaint (Nursing): Abdominal Pain History Per: Patient History/Exam Limitations: no limitations Onset/Duration Of Symptoms: Days (1) Current Symptoms Are (Timing): Still Present Location Of Pain/Discomfort: Epigastric Associated Symptoms: denies: Fever, Chills, Nausea, Vomiting, Diarrhea, Back Pa in, Chest Pain, Urinary Symptoms Past Medical History Reviewed: Historical Data, Nursing Documentation, Vital Signs Vital Signs: Last Vital Signs Temp 98.1 F 07/08/18 17:37 Pulse 98 H 07/08/18 17:37 Resp 20 07/08/18 17:37 BP 164/91 H 07/08/18 17:37 Pulse Ox 100 07/08/18 17:37 Primary Care Provider: Rosaura Harris - Medical History PMH: Anemia, Anxiety, Arthritis, Asthma, Back Problems, Bipolar Disorder, Depre ssion, HTN, Malignancy (Colon), Rheumatoid Arthritis, Schizophrenia Denies: Chronic Kidney Disease Other Surgeries: Hx of surgeries - [facility] Procedures CLOSED ENDOSCOPIC BIOPSY OF LARGE INTESTINE (05/23/14) COLONOSCOPY (08/12/14) DX ULTRASOUND-ABDOMEN (05/23/14) EXCISION OF STOMACH, ENDO, DIAGN (01/13/18) INSERTION OF TOTALLY IMPLANTABLE VASC ACCESS DEVIC (05/23/14) LAPAROSCOP LYSIS-PERITONEAL ADHES (05/23/14) LAPAROSCOPIC SIGMOIDECTOMY (05/23/14) OTHER ENDOSCOPY OF SM INTEST (05/23/14) PACKED CELL TRANSFUSION (05/23/14) PERCUTAN NEEDLE BX OF LIVER (05/23/14) REMOVAL OF VAD FROM TRUNK SUBCU/FASCIA, PERC APPROACH (03/16/15) Family History: States: No Known Family Hx - Social History Hx Tobacco Use: No Hx Alcohol Use: Yes Hx Substance Use: No - Immunization History Hx Tetanus Toxoid Vaccination: Yes Hx Influenza Vaccination: Yes Hx Pneumococcal Vaccination: No Review Of Systems Except As Marked, All Systems Reviewed And Found Negative. Constitutional: Negative for: Fever, Chills Gastrointestinal: Positive for: Abdominal Pain. Negative for: Nausea, Vomiting, Diarrhea, Constipation Musculoskeletal: Positive for: Arm Pain (left) Neurological: Negative for: Weakness, Numbness Physical Exam - Physical Exam Appears: Non-toxic, No Acute Distress Skin: Warm, Dry, No Rash Head: Normacephalic Eye(s): bilateral: Normal Inspection, PERRL, EOMI Nose: Normal Oral Mucosa: Moist Neck: Supple Chest: Symmetrical Cardiovascular: Rhythm Regular Respiratory: Normal Breath Sounds, No Rales, No Rhonchi, No Wheezing Gastrointestinal/Abdominal: Soft, Tenderness (mild epigastric tenderness) Extremity: Normal ROM, No Tenderness, Capillary Refill (less than 2 sec to left arm ), No Deformity, No Swelling Extremity: Bilateral: Atraumatic, Normal Color And Temperature, Normal ROM Pulses: Left Radial: Normal, Right Radial: Normal Neurological/Psych: Oriented x3, Normal Speech, Normal Motor, Normal Sensation Gait: Steady ED Course And Treatment - Laboratory Results Result Diagrams: 07/08/18 18:12 07/08/18 18:12 ECG: Interpreted By Me, Viewed By Me Interpretation Of ECG: No ST/T wave changes Rate From EC O2 Sat by Pulse Oximetry: 100 (RA) Pulse Ox Interpretation: Normal Medical Decision Making Medical Decision Making: suspect gastirits ro pancreatitis pud. Plan - EKG - Bloodwork - Protonix 40mg IVP - IV fluids - UA pt in er in nad. sp meds abd soft no ttp. no vomiting no gi bleed. h/h basleine. stable for dc. recent ct scan neg. Disposition - Disposition Disposition: HOME/ ROUTINE Disposition Time: 19:00 Condition: STABLE Additional Instructions: return to er with wrosening. Instructions: Acute Abdomen (Belly Pain) Forms: [facility] (Maori) - Clinical Impression Clinical Impression: Abdominal pain - Scribe Statement The provider has reviewed the documentation as recorded by the Scribe Ibis Knox All medical record entries made by the Scribe were at my direction and personally dictated by me. I have reviewed the chart and agree that the record accurately reflects my personal performance of the history, physical exam, medical decision making, and the department course for this patient. I have also personally directed, reviewed, and agree with the discharge instructions and disposition.
[2018-07-08 18:18] LABS: BASO % 0.4 % (0.0-2.0); EOS % 0.8 % (0.0-4.0); HEMOGLOBIN 10.2 g/dL (11.0-16.0); LYMPH # 0.9 K/uL (1.0-4.3); LYMPH % 34.1 % (20.0-40.0); MEAN CELL VOLUME 78.1 fL (81.0-99.0); MEAN CORPUSCULAR HEMOGLOBIN 25.8 pg (27.0-31.0); MEAN PLATELET VOLUME 7.7 fL (7.2-11.7); MONO # 0.2 K/uL (0.0-0.8); MONO % 9.3 % (0.0-10.0); NEUT # 1.5 K/uL (1.8-7.0); NEUT % 55.4 % (50.0-75.0); NRBC % 0.1 % (0.0-2.0); RBC 3.94 Mil/uL (3.80-5.20); RED CELL DISTRIBUTION WIDTH 18.6 % (11.5-14.5); WHITE BLOOD COUNT 2.7 K/uL (4.8-10.8)
[2018-07-08 18:28] LABS: INR 1.1; PROTHROMBIN TIME 12.5 SECONDS (9.7-12.2)
[2018-07-08 18:38] LABS: ALB/GLOB RATIO 1.8 (1.0-2.1); ALBUMIN 4.4 g/dL (3.5-5.0); ALT/SGPT 13 U/L (9-52); AST/SGOT 22 U/L (14-36); BLOOD UREA NITROGEN 7 mg/dL (7-17); CALCIUM 8.9 mg/dl (8.6-10.4); GFR NON-AFRICAN AMERICAN > 60; LIPASE 81 U/L (23-300)
[2018-07-08] MEDS ORDERED: Potassium Chloride 20 mEq ER Tab PO STA (18:41)
[2018-07-08] MEDS ORDERED: Potassium Chloride 20 mEq ER Tab PO ONE (19:00)
[2018-07-08 19:01] LABS: URINE BACTERIA RARE (<OCC); URINE BILIRUBIN NEGATIVE (NEGATIVE); URINE BLOOD NEGATIVE (NEGATIVE); URINE CLARITY Clear (Clear); URINE COLOR Colorless (YELLOW); URINE GLUCOSE (UA) NORMAL (Normal); URINE LEUKOCYTE ESTERASE NEG Leu/uL (Negative); URINE PROTEIN NEGATIVE (NEGATIVE); URINE UROBILINOGEN NORMAL mg/dL (0.2-1.0)
[2018-07-08 19:25] VITALS: BP 155/93; PULSE 84; RESP 18; TEMP 97.4
--- NOTE | 2018-07-09 11:58 | CARD ---
APPROVED REPORT Date of service: 07/08/2018 EKG Measurement Heart [id number] <Conclusion> Normal sinus rhythm Cannot rule out Anterior infarct, age undetermined Prolonged QT Abnormal ECG
== END 2018-07-08 19:27 | disposition home or self-care (01) ==
LOC: C.ER 17:13
DX: R10.13 Epigastric pain (principal)
CPT/HCPCS: 80053; 81001; 83690; 84484; 85025; 85610; 85730; 93005; 96361; 96374; 99284; C9113; J7030

== ENCOUNTER 2018-07-16 11:20 | Emergency (ER) | payer MEDICARE | END 2018-07-16 13:57 | disposition home or self-care (01) | LOC: C.ER 11:20 ==